=== PATIENT | female | born 1990 | race Caucasian/White ===

== ENCOUNTER 2016-08-09 08:39 | Inpatient (IN) | payer MEDICAID, OTHER ==
[2016-08-09 09:51] LABS: Hematocrit 41 % (35-47); Hemoglobin 14.1 g/dl (12.0-16.0); Mean Corpuscular HGB Conc 34 g/dl (31-36); Mean Corpuscular Hemoglobin 29 pg (27-31); Mean Corpuscular Volume 85 fL (80-97); Mean Platelet Volume 9 um3 (7.4-10.4); Red Blood Count 4.85 10^6/ul (4.0-5.4); Red Cell Distribution Width 14 % (10.5-15); White Blood Count 9.6 10^3/ul (3.5-10.8)
[2016-08-09 09:52] LABS: Urine Bacteria 2+ (Absent); Urine Bilirubin Negative (Negative); Urine Glucose Negative (Negative); Urine Nitrite Negative (Negative)
[2016-08-09 10:06] LABS: Acetaminophen < 15 mcg/mL; Alcohol < 10 mg/dL (<10); Salicylate < 2.50 mg/dL (<30)
[2016-08-09 10:12] LABS: ALT 17 U/L (7-52); AST 15 U/L (13-39); Albumin 4.7 g/dL (3.2-5.2); Alkaline Phosphatase 75 U/L (34-104); Anion Gap 7 mmol/L (2-11); BUN/Creatinine Ratio 13.8 (8-20); Blood Urea Nitrogen 12 mg/dL (6-24); CO2 Carbon Dioxide 24 mmol/L (22-32); Calcium 9.4 mg/dL (8.6-10.3); Chloride 105 mmol/L (101-111); EGFR African American 99.7 (>60); EGFR Non-African American 77.5 (>60); Globulin 3.1 g/dL (2-4); Glucose 92 mg/dL (70-100); Potassium 3.7 mmol/L (3.5-5.0); Sodium 136 mmol/L (133-145); Total Protein 7.8 g/dL (6.4-8.9)
[2016-08-09 10:16] LABS: TSH (Thyroid Stimulating Horm) 0.99 mcIU/mL (0.34-5.60)
[2016-08-09 10:47] LABS: Benzodiazepine Urine Screen Presumptive Positive (None Detect)
--- NOTE | 2016-08-09 10:47 | ED ---
Psychiatric Complaint - HPI Summary HPI Summary: Patient presents depressed with SI due to "recent events" that she will not expound upon. She suffered a self-imposed laceration to her left forearm with a razor blade today. She is weepy during out conversation and denies other physical complaints. - History Of Current Complaint Chief Complaint: [facility] Time Seen by Provider: 08/09/16 08:41 Hx Obtained From: Patient Hx Last Menstrual Period: MIRENA IUD ?: No Onset/Duration: Gradual Onset Timing: Constant Severity Initially: Severe Severity Currently: Severe Character: Depressed, Anxious Aggravating Factor(s): Recent Stress Alleviating Factor(s): Nothing Related History: Positive For: Prior Psychiatric Issues Has Suicidal: Reports: Thoughts - Allergies/Home Medications Allergies/Adverse Reactions: Allergies Allergy/AdvReac Type Severity Reaction Status Date / Time Penicillin V Allergy Severe Hives Verified 07/04/16 19:59 Latex Allergy Intermediate Rash Verified 07/04/16 19:59 Lactose Intolerance (GI) Allergy Diarrhea Verified 07/04/16 19:59 glue Allergy Rash Uncoded 07/04/16 19:59 steri strips Allergy Rash Uncoded 07/04/16 19:59 PMH/Surg Hx/FS Hx/Imm Hx Endocrine/Hematology History: Denies: Hx Anticoagulant Therapy, Hx Diabetes - borderline, Hx Thyroid Disease, Other Endocrine/Hematological Disorders Cardiovascular History: Denies: Hx Hypertension, Hx Pacemaker/ICD, Other Cardiovascular Problems/ Disorders Respiratory History: Reports: Hx Asthma Denies: Hx Chronic Obstructive Pulmonary Disease (COPD), Other Respiratory Problems/Disorders GI History: Denies: Hx Ulcer, Other GI Disorders History: Reports: Other Problems/Disorders - urinary retention and herpes Denies: Hx Renal Disease Musculoskeletal History: Denies: Other Musculoskeletal History Sensory History: Reports: Hx Contacts or Glasses Denies: Other Sensory Impairments Opthamlomology History: Reports: Hx Contacts or Glasses Denies: Other Sensory Impairments Neurological History: Reports: Hx Seizures - psuedoseizures Denies: Hx Dementia, Hx Developmental Delay, Other Neuro Impairments/ Disorders Psychiatric History: Reports: Hx Anxiety, Hx Depression, Hx Panic Disorder, Hx Post Traumatic Stress Disorder, Hx Inpatient Treatment, Hx Community Mental Health Tx, Hx Schizophrenia - Schizoaffective Disorder, Hx Bipolar Disorder, Hx Suicide Attempt, Hx of Violent Episodes Against Others - SEE VIOLENCE HX, Hx Substance Abuse, Other Psychiatric Issues/Disorders - COGNITIVELY LIMITED, BORDERLINE PERS D/O Denies: Hx Eating Disorder - Cancer History Hx Chemotherapy: No Hx Radiation Therapy: No Hx Palliative Cancer Treatment: No - Immunization History Date of Tetanus Vaccine: UTD Date of Influenza Vaccine: Unk Infectious Disease History: No Infectious Disease History: 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 - Social History Occupation: Disabled Lives: Alone Alcohol Use: None Alcohol Amount: "drank beer awhile ago" Hx Substance Use: No Substance Use Type: Reports: None Substance Use Comment - Amount & Last Used: Xanax and Ambien Hx Tobacco Use: Yes Smoking Status (MU): Light Every Day Tobacco Smoker Type: Cigarettes Amount Used/How Often: 1/2 PPD Length of Time of Smoking/Using Tobacco: 3 years Have You Smoked in the Last Year: Yes Cessation Counseling: Patient Advised to Stop Review of Systems Positive: Anxious, Depressed All Other Systems Reviewed And Are Negative: Yes Physical Exam Triage Information Reviewed: Yes Vital Signs On Initial Exam: Initial Vitals Temp Pulse Resp BP Pulse Ox 98.2 F 76 16 120/70 98 08/09/16 09:26 08/09/16 09:26 08/09/16 09:26 08/09/16 09:26 08/09/16 09:26 Vital Signs Reviewed: Yes Appearance: Positive: Well-Appearing, Pain Distress, Obese Skin: Positive: Warm, Skin Color Reflects Adequate Perfusion, Dry, Tender - 4cm laceration to left underside of forearm, Soft Head/Face: Positive: Normal Head/Face Inspection Eyes: Positive: EOMI, OKSANA, Conjunctiva Clear ENT: Positive: Hearing grossly normal Respiratory/Lung Sounds: Positive: Breath Sounds Present Cardiovascular: Positive: RRR Musculoskeletal: Positive: Strength/ROM Intact, Pain @ - TTP left forearm Neurological: Positive: Sensory/Motor Intact, Alert, Oriented to Person Place, Time, NV Bundle Intact Distally, Normal Gait Psychiatric: Positive: Anxious, Depressed AVPU Assessment: Alert Procedures - Laceration/Wound Repair 1 Location: upper extremity - left forearm Description: Linear Length, Depth and Shape: 4 cm long, 5mm wide, 2mm deep- patient refused numbing medication Betadine Prep?: No Irrigated w/ Saline (ccs): 100 Laceration/Wound Explored: clean Closure: Shazia #__ - 7 Layer Closure?: No Sterile Dressing Applied?: No Diagnostics - Vital Signs Vital Signs Temp Pulse Resp BP Pulse Ox 08/09/16 09:26 98.2 F 76 16 120/70 98 - Laboratory Lab Results: Lab Results 08/09/16 08/09/16 08/09/16 Range/Units 09:20 09:35 09:35 WBC 9.6 (3.5-10.8) 10^3/ul RBC 4.85 (4.0-5.4) 10^6/ul Hgb 14.1 (12.0-16.0) g/dl Hct 41 (35-47) % MCV 85 (80-97) fL MCH 29 (27-31) pg MCHC 34 (31-36) g/dl RDW 14 (10.5-15) % Plt Count 307 (150-450) 10^3/ul MPV 9 (7.4-10.4) um3 Neut % (Auto) 74.9 (38-83) % Lymph % (Auto) 19.6 L (25-47) % Shelby % (Auto) 4.7 (1-9) % Eos % (Auto) 0.4 (0-6) % Baso % (Auto) 0.4 (0-2) % Absolute Neuts (auto) 7.1 (1.5-7.7) 10^3/ul Absolute Lymphs (auto) 1.9 (1.0-4.8) 10^3/ul Absolute Monos (auto) 0.5 (0-0.8) 10^3/ul Absolute Eos (auto) 0 (0-0.6) 10^3/ul Absolute Basos (auto) 0 (0-0.2) 10^3/ul Absolute Nucleated RBC 0 10^3/ul Nucleated RBC % 0 Sodium 136 (133-145) mmol/L Potassium 3.7 (3.5-5.0) mmol/L Chloride 105 (101-111) mmol/L Carbon Dioxide 24 (22-32) mmol/L Anion Gap 7 (2-11) mmol/L BUN 12 (6-24) mg/dL Creatinine 0.87 (0.51-0.95) mg/dL Est GFR ( Amer) 99.7 (>60) Est GFR (Non-Af Amer) 77.5 (>60) BUN/Creatinine Ratio 13.8 (8-20) Glucose 92 (70-100) mg/dL Calcium 9.4 (8.6-10.3) mg/dL Total Bilirubin 0.70 (0.2-1.0) mg/dL AST 15 (13-39) U/L ALT 17 (7-52) U/L Alkaline Phosphatase 75 (34-104) U/L Total Protein 7.8 (6.4-8.9) g/dL Albumin 4.7 (3.2-5.2) g/dL Globulin 3.1 (2-4) g/dL Albumin/Globulin Ratio 1.5 (1-3) TSH 0.99 (0.34-5.60) mcIU/mL Beta HCG, Quant < 0.60 mIU/mL Urine Color Maya Urine Appearance Cloudy Urine pH 5.0 (5-9) Ur Specific [place] 1.025 (1.010-1.030) Urine Protein 1+(30 mg/dl) H (Negative) Urine Ketones Trace H (Negative) Urine Blood 2+ H (Negative) Urine Nitrate Negative (Negative) Urine Bilirubin Negative (Negative) Urine Urobilinogen Negative (Negative) Ur Leukocyte Esterase 3+ H (Negative) Urine WBC (Auto) 3+(>20/hpf) H (Absent) Urine RBC (Auto) 2+(6-10/hpf) H (Absent) Ur Squamous Epith Cells Present H (Absent) Urine Bacteria 2+ H (Absent) Urine Glucose Negative (Negative) Salicylates < 2.50 (<30) mg/dL Acetaminophen < 15 mcg/mL Serum Alcohol < 10 (<10) mg/dL Result Diagrams: 08/09/16 09:35 08/09/16 09:35 Lab Statement: Any lab studies that have been ordered have been reviewed, and results considered in the medical decision making process. Course/Dx - Differential Dx/Clinical Impression Differential Diagnosis/HQI/PQRI: Positive: Acute Psychosis, Anxiety, Bipolar Disorder, Depression, Schizophrenia, Suicidal Ideation Provider Diagnosis: Persistent mood [affective] disorder, unspecified - Physician Notifications Instructed by Provider To: Admit As Inpatient Patient Is Medically Stable For: Psych Evaluation Discharge - Discharge Plan Condition: Stable Disposition: ADMITTED TO [facility]
[2016-08-09] MEDS ORDERED: LORazepam TAB(*) 1 MG PO ONE (10:52)
[2016-08-09] MEDS ORDERED: Ibuprofen TAB* 400 MG PO ONE (13:13)
[2016-08-09] MEDS ORDERED: Al Hydrox/Mg Hydrox/Simet LIQ* 30 ML UDC PO PRN (16:38)
[2016-08-09] MEDS ORDERED: Nicotine GUM* 2 MG PO PRN (16:56)
[2016-08-09] MEDS ORDERED: Mouth Piece, Nicotine* 1 EACH CARTRIDGE ONE (16:56)
[2016-08-09] MEDS: Nicotine Inhaler* 10 MG AMP INH PRN (16:57)
[2016-08-09] MEDS: Acetaminophen TAB* 325 MG PO PRN (16:57)
[2016-08-09] MEDS: Naproxen TAB* 250 MG PO PRN (19:40)
[2016-08-09] MEDS: hydrOXYzine HCL TAB* 50 MG PO PRN (19:40)
[2016-08-09] MEDS ORDERED: chlorproMAZINE TAB* 50 MG PO SCH (21:00)
[2016-08-09] MEDS: NICOTINE GUM 2 MG PO PRN (21:36)
[2016-08-10] MEDS: Acetaminophen TAB* 325 MG PO PRN (03:06)
[2016-08-10] MEDS: NICOTINE GUM 2 MG PO PRN ×8 (03:06→23:16)
[2016-08-10] MEDS: hydrOXYzine HCL TAB* 50 MG PO PRN (04:46)
[2016-08-10] MEDS: Tamsulosin CAP* 0.4 MG PO SCH (08:15)
[2016-08-10] MEDS: Vitamin THERAPEUTIC TAB PO SCH (09:27)
[2016-08-10] MEDS ORDERED: chlorproMAZINE TAB* 50 MG PO SCH (11:00)
--- NOTE | 2016-08-10 13:59 | HP ---
ADMISSION HISTORY AND PHYSICAL: DATE OF ADMISSION: 08/09/16 DATE OF EVALUATION: 08/10/16 IDENTIFICATION: Ms. Pérez is well-known to the unit from multiple admissions here. She is admitted on this occasion with suicide attempt by cutting her left volar forearm, also inscribing "I hate myself" with a knife on her arm and reporting increased depressive symptoms due to 2 stressors: her mother evicting her from their home and her girlfriend [place] and not planning for her to come with her. HISTORY OF PRESENT ILLNESS: Information was gathered from interview of the patient and review of the electronic medical record. Marly tells me that her mood has been up and down, and currently, it is just there. She reports continuing to have suicidal ideation, "It is in my head. I can't get it out of my head." She reports also command auditory hallucinations both to hurt herself and of disparaging remarks that no one likes her and that people would be better off if she were . She denies any thoughts to harm others. She denies any visual hallucinations, but does report that at her last hospitalization, she saw a woman dressed in black walking by her room who turned out not be there. She reports that she has been sleeping poorly, generally sleeps better with melatonin. She reports that her appetite has been down and she is not enjoying the things that she used to like to do, that she is feeling depressed, that she is feeling guilty and worthless, that she has no energy. She does not endorse any difficulty with concentration or decision making, but reports that she has a difficult time making good decisions. Surprisingly, she tells me on this occasion that she has had very little exposure to DBT skills or other treatments specifically for her longstanding and well established diagnosis of borderline personality disorder. She does give report of 3 to 4 day episodes of irritability, walking around the house, considering what to do first and what second in order to harm herself. These symptoms, however, do seem much more in line with her diagnosis of borderline personality disorder and would not seem to indicate a history of true elizabeth. She denies any use of alcohol or drugs prior to this admission. She voices understanding of the need to comply with the behavioral modification plan put in place because of past episodes of countertherapeutic, out of control behavior on the unit. PAST PSYCHIATRIC HISTORY: She has had many psychiatric hospitalizations including at the [facility]. She has severe and chronic history of self- injurious behaviors. She has periodically attempted suicide. She has had numerous medication trials with nothing successful against her mood lability and impulsivity. She has failed antipsychotic trials for mood stabilization, reduction of impulsivity, and atypical psychotic features. She has been in outpatient care at [facility], although she reports that she has lapsed from care since her last discharge from this unit. She has also been in the care of ACT teams. She has had various diagnoses including intellectual disability, borderline personality disorder, substance related disorder, dissociative disorder, psychotic disorder, and posttraumatic stress disorder. Report of psychotic experience seems in line with dissociation related to complex PTSD/borderline personality disorder much more so than chronic psychotic disorder. Medication trials have included trazodone, Seroquel , Thorazine, Remeron, Neurontin, Campral, clonidine, lithium, Depakote, Celexa, naltrexone, and Topamax. She has had poor adherence with medications and in the past has needed court ordered treatment in the outpatient setting. She has had behavioral problems with negative therapeutic reactions on the psychiatric unit in the past. She will often worsen on the unit due to an inability to make a stable clinical alliance and a tendency to self sabotage. She will act out over minor upsets with severely disruptive behaviors. PAST MEDICAL HISTORY: 1. Obesity. 2. Seizure disorder. 3. Urinary retention. 4. Herpes zoster. OUTPATIENT MEDICATION REGIMEN: The patient reports that she has lapsed from all medications. She had been on: 1. Atarax 50 mg every 4 hours as needed for anxiety. 2. Thorazine 50 mg at bedtime. 3. Flomax 0.4 mg every morning. 4. Naprosyn 500 mg every 12 hours as needed. 5. Naltrexone 50 mg daily. 6. Latuda 40 mg twice daily. 7. Abilify Maintena 400 mg IM every 28 days. DRUG ALLERGIES: PENICILLIN V. FAMILY PSYCHIATRIC HISTORY: She has half siblings with learning and conduct disorders. SUBSTANCE USE HISTORY: As reported, marijuana use and the use of cocaine in the past. Also alcohol cravings and treatment with Campral in the past. SOCIAL HISTORY: She was adopted and raised with half and adopted siblings. She did not graduate high school due to frequent hospitalizations for psychiatric reasons. She has been in a frequently chaotic long-term relationship with girlfriend, Wendi, which now apparently is ending as Wendi is planning to move away [place] the [place]. Marly identifies as a lesbian. She has been living with her mother, but her mother reportedly has kicked her out of the house. She has in the past lived in supportive mental health housing. MENTAL STATUS EXAMINATION: Marly is more down on this occasion than I have seen her previously. She makes only furtive eye contact. Her speech is low volume, but with regular rate and rhythm. She is alert and oriented to person, place, time, and situation. She has a linear, if somewhat slowed, and goal directed thought process. She reports her mood as "just there." Her affect is down, in congruence with her report of feeling depressed overall. She reports ongoing command auditory hallucinations with disparaging remarks about the world being better off without her and commands to harm herself. She denies any visual hallucinations. She denies any thoughts to harm others. She denies any paranoid thoughts. Her insight and judgment are chronically impaired. She has a history of very poor impulse control, but so far on the unit has been in behavioral control. PHYSICAL ASSESSMENT: She did have sabra placed on the deep cuts that she made on her volar left forearm. She had a physical examination done in the emergency department reported as within normal limits across organ systems with the exception of the following abnormalities noted: that she has a 4-cm laceration to the left underside of the forearm and appears anxious and depressed. She declines a repeat physical examination. Vital signs recorded in the emergency department at 9:26 a.m. on 08/09/16 showed a temp of 98.2, pulse 76, respiratory rate 16, blood pressure 120/70 with 98% saturation by pulse ox. LABORATORY DATA: Laboratory values were entirely normal on the CBC with differential aside from a slightly low lymphocyte percentage of 19.6, entirely normal comprehensive metabolic panel, and negative test. TSH 0.99. Urinalysis had squamous cells present, 2+ bacteria, 2+ red's, 3+ white's, 3+ leukocyte esterase, 2+ blood, trace ketones, 1+ urinary protein. Toxicology screen positive for benzodiazepines, otherwise, entirely negative. ASSESSMENT AND PLAN: Ms. Pérez is a 26-year-old woman with a history of severe borderline personality disorder. She has been readmitted to the unit with report of suicidal ideation, still ongoing with commands and auditory hallucinations to harm herself. She states it is her goal for this admission to transfer to the [facility] for longer term care, unless her mother would relent and allow her to return to her home. She reports that she is despondent over the planned departure of her girlfriend, Wendi. This has been reported on each admission as a tumultuous and unstable relationship. She does surprisingly report to me today never having had any sort of coherent treatment for borderline personality disorder. I suppose that it is possible that because of the extremely chaotic presentation that she has had on this unit and in other treatment facilities, that she has not learned DBT skills, but it seems unlikely. She will be encouraged to make productive use of the therapeutic milieu within the constraints of the behavioral modification plan that it is in place to forestall the negative therapeutic reactions that have routinely occurred during her hospitalizations. Early on, she is showing some indications that she might be able to successfully comply with the behavioral modification plan to graduate into privileges to allow productive use of groups without the typical disruptiveness that has made that impossible during past admissions. We will be looking towards placement to the [facility]. We will be restarting for now the Prolixin that in the past she reports has been of some help in mitigating command auditory hallucinations that she is now experiencing. We will also be gathering collateral from [facility], from which she reports she has lapsed care and, in fact, states that she was discharged from that program. She is on 15 minute checks. She is full code status. She has been admitted on a 9 status. DIAGNOSES: 1. Borderline personality disorder. 2. Borderline intellectual functioning. 3. Posttraumatic stress disorder/dissociative disorder. 4. Adjustment disorder. 5. Depressive disorder. [id number]/[facility] #: [id number] NEIL
[2016-08-10] MEDS: fluPHENAZine HCL TAB* 5 MG PO SCH (14:35)
--- NOTE | 2016-08-10 18:24 | CONSULT ---
Consult Consult: Brief focused consult note: Asked to see Ms. Pérez for complaint of redness around her belly button and pain at the site of her left arm wound where sabra were placed after she cut her arm on Sunday08/09/16. 1. On exam her left arm wound is healing well and there is no erythema or edema to suggest infection. I believe that the area is simply somewhat painful as would be expected. Recommend to continue acetaminophen and ibuprofen with daily dressing changes. Sabra should be removed in 10 days. 3. On further exam, her belly button is excoriated. Patient states she believes that there are (1) bugs in there, (2) a worm in there, or (3) perhaps it hurts because she is not peeing. No foreign objects noted in the belly button. I suspect that she has been scratching at the area causing excoriation. Recommend local bacitran and to encourage patient to leave the area alone as much as possible. No evidence of infection. Hospital Medicine will be available as needed during Ms. Pérez stay on the [facility] for any further questions or concerns.
[2016-08-10] MEDS: chlorproMAZINE TAB* 25 MG PO SCH (21:51)
[2016-08-10] MEDS: Naproxen TAB* 250 MG PO PRN (22:56)
[2016-08-11] MEDS: Tamsulosin CAP* 0.4 MG PO SCH (08:19)
[2016-08-11] MEDS: NICOTINE GUM 2 MG PO PRN ×6 (08:19→23:23)
[2016-08-11] MEDS: fluPHENAZine HCL TAB* 5 MG PO SCH (08:19)
[2016-08-11] MEDS: Vitamin THERAPEUTIC TAB PO SCH (08:20)
--- NOTE | 2016-08-11 11:15 | PN ---
Subjective - Subjective Service Type: 22523 Hosp care 15 min low complexity Subjective: Marly reports ongoing AH, but denies SI/SIB, HI, PI, VH. She was seen by medicine for her complaints of pain at the site of her deep cut on L volar forearm, and exoriation of umbilicus. She has no physical complaints today. She signed and is complying with her behavioral modification plan. Objective - Appearance Appearance: Obese Dysmorphic Features: No Hygiene: Normal Grooming: Disheveled - Behavior Psychomotor Activities: Normal Exhibits Abnormal Movement: No - Attitude and Relatedness Attitude and Relatedness: Minimally Cooperative Eye Contact: Fair - Speech Quality: Unpressured Latencies: Normal Quantity: Appropriate - Mood Patient's Decription of Mood: "I don't know" - Affect Observed Affect: Tense Affect Consistent with: Dysphoria - Thought Process Patient's Thought Process: Impoverished Thought Content: No Passive Wish, No Suicidal Planning, No Homicidal Ideation, No Paranoid Ideation - Sensorium Experiencing Hallucinations: Yes Type of Hallucinations: Visual: No, Auditory: Yes, Command: No - Level of Consciousness Level of Consciousness: Agitated - mildly Orientation: Yes Intact, Yes Orientated to Time, Yes Orientated to Place, Yes Orientated to Person - Impulse Control Impulse Control: Tenuous - chronically - Insight and Judgement Insight and Judgement: Poor - chronically - Group Participation Particating in Group Activities: No - Medication Management Medication Management Adherence: Yes Assessment - Assessment Merits Inpatient Hospitalization: For Stabilization, For Discharge Planning, Pending Safe DC Plan Inpatient DSM-IV Dx: 1. Borderline personality disorder. 2. Borderline intellectual functioning. 3. Posttraumatic stress disorder/dissociative disorder. 4. Adjustment disorder. 5. Depressive disorder. Clinical Impression: ON admission 16: Ms. Pérez is a 26-year-old woman with a history of severe borderline personality disorder. She has been readmitted to the unit with report of suicidal ideation, still ongoing with commands and auditory hallucinations to harm herself. She states it is her goal for this admission to transfer to the [facility] for longer term care, unless her mother would relent and allow her to return to her home. She reports that she is despondent over the planned departure of her girlfriend, Wendi. This has been reported on each admission as a tumultuous and unstable relationship. She does surprisingly report to me today never having had any sort of coherent treatment for borderline personality disorder. I suppose that it is possible that because of the extremely chaotic presentation that she has had on this unit and in other treatment facilities, that she has not learned DBT skills, but it seems unlikely. She will be encouraged to make productive use of the therapeutic milieu within the constraints of the behavioral modification plan that it is in place to forestall the negative therapeutic reactions that have routinely occurred during her hospitalizations. Early on, she is showing some indications that she might be able to successfully comply with the behavioral modification plan to graduate into privileges to allow productive use of groups without the typical disruptiveness that has made that impossible during past admissions. We will be looking towards placement to the [facility]. We will be restarting for now the Prolixin that in the past she reports has been of some help in mitigating command auditory hallucinations that she is now experiencing. We will also be gathering collateral from [facility], from which she reports she has lapsed care and, in fact, states that she was discharged from that program. She is on 15 minute checks. She is full code status. She has been admitted on a 9.39 status. 08.11.16 Ms Pérez today reports uncertainty as to her mood, but denies any dangerous intent or plan, and only hearing voices, thought not telling her to hurt herself , only contradicting her thoughts. She has no physical complaints and remains in tentative behavioral control. Given recent exacerbation of illness, plan is to refer to [facility] for mcc care and stabilization. Awaiting return call from [facility] for collateral to guide care. Just received call from nursing as typing this report that she is now having CAH to SIB. Will add Zyprexa ODT 5 mg q4H prn against that. Plan - Plan Treatment Plan: Name: MARLY PÉREZ Birthdate: 1990 [id number] Continue current meds and plan with behavioral modification plan against countertherapeutic behaviors. Gather collateral. Monitor MS and safety. Arrange disposition per collateral and hospital course, with consideration of intermediate school teacher care via transfer to [facility], which is what Ms Pérez has requested. Medications: Current Medications Acetaminophen (Tylenol Tab*) 650 mg PO Q6H PRN PRN Reason: for pain; or Temp >101 F Last Admin: 08/10/16 03:06 Dose: 650 mg Al Hydrox/Mg Hydrox/Simethicone (Maalox Plus*) 30 ml PO Q4H PRN PRN Reason: INDIGESTION Chlorpromazine HCl (Thorazine Tab*) 25 mg PO BEDTIME [facility] Last Admin: 08/10/16 21:51 Dose: Not Given Fluphenazine HCl (Prolixin Tab*) 5 mg PO DAILY [facility] Last Admin: 08/11/16 08:19 Dose: 5 mg Hydroxyzine HCl (Atarax Tab*) 50 mg PO Q4H PRN PRN Reason: AGITATION/ANXIETY Last Admin: 08/10/16 04:46 Dose: 50 mg Multivitamins (Theragran Tab*) 1 tab PO DAILY [facility] Last Admin: 08/11/16 08:20 Dose: Not Given Naproxen (Naprosyn Tab*) 500 mg PO Q12H PRN PRN Reason: PAIN Last Admin: 08/10/16 22:56 Dose: 500 mg Nicotine (Nicotine Inhaler*) 10 mg INH Q2H PRN PRN Reason: CRAVING Last Admin: 08/09/16 16:57 Dose: 10 mg Nicotine Polacrilex (Nicotine Gum*) 2 mg PO Q2H PRN PRN Reason: CRAVING Last Admin: 08/11/16 10:49 Dose: 2 mg Tamsulosin HCl (Flomax Cap*) 0.4 mg PO 0900 [facility] Last Admin: 08/11/16 08:19 Dose: 0.4 mg - Discharge Plan Discharge Plan: Consider Longer Term Tx
[2016-08-11] MEDS ORDERED: OLANzapine TAB*ODT* 5 MG ONE (11:32)
[2016-08-11] MEDS: OLANzapine TAB*ODT* 5 MG PO PRN ×2 (11:33→23:19)
[2016-08-11] MEDS: Acetaminophen TAB* 325 MG PO PRN (15:27)
[2016-08-11] MEDS ORDERED: Mouth Piece, Nicotine* 1 EACH CARTRIDGE ONE (15:30)
[2016-08-11] MEDS: Nicotine Inhaler* 10 MG AMP INH PRN ×2 (15:31→23:20)
[2016-08-11] MEDS: Naproxen TAB* 250 MG PO PRN (16:49)
[2016-08-11] MEDS: chlorproMAZINE TAB* 25 MG PO SCH (20:09)
[2016-08-12] MEDS: NICOTINE GUM 2 MG PO PRN ×6 (07:28→18:23)
[2016-08-12] MEDS: OLANzapine TAB*ODT* 5 MG PO PRN ×3 (07:38→17:39)
[2016-08-12] MEDS: fluPHENAZine HCL TAB* 5 MG PO SCH (07:38)
[2016-08-12] MEDS: Tamsulosin CAP* 0.4 MG PO SCH (07:38)
[2016-08-12] MEDS: Vitamin THERAPEUTIC TAB PO SCH (08:53)
--- NOTE | 2016-08-12 13:04 | PN ---
Subjective - Subjective Service Type: 89755 Hosp care 15 min low complexity Subjective: Patient has not had any notable behavioral disturbances on the unit so far this weekend. She remains calm and cooperative but indicates that she would likely kill herself if discharged back into the community. Objective - Appearance Appearance: Well Developed/Nourished Dysmorphic Features: No Hygiene: Normal Grooming: Well Kept - Behavior Psychomotor Activities: Normal Exhibits Abnormal Movement: No - Attitude and Relatedness Attitude and Relatedness: Cooperative Eye Contact: Fair - Speech Quality: Unpressured Latencies: Normal Quantity: Appropriate - Mood Patient's Decription of Mood: "Anxious" - Affect Observed Affect: Fair Affect Consistent with: Dysphoria - Thought Process Patient's Thought Process: Coherent Thought Content: Yes Passive Wish, No Suicidal Planning, No Homicidal Ideation, No Paranoid Ideation - Sensorium Experiencing Hallucinations: Yes Type of Hallucinations: Visual: No, Auditory: Yes, Command: Yes - to kill herself - Level of Consciousness Level of Consciousness: Alert Orientation: Yes Intact, Yes Orientated to Time, Yes Orientated to Place, Yes Orientated to Person - Impulse Control Impulse Control: Tenuous - Insight and Judgement Insight and Judgement: Poor - Group Participation Particating in Group Activities: Yes - Medication Management Medication Management Adherence: Yes Assessment - Assessment Merits Inpatient Hospitalization: For Immediate Safety, For Stabilization Inpatient DSM-IV Dx: 1. Borderline personality disorder. 2. Borderline intellectual functioning. 3. Posttraumatic stress disorder/dissociative disorder. 4. Adjustment disorder. 5. Depressive disorder. Clinical Impression: 26 y.o. single white, homosexual female with a history of early life trauma, PTSD and borderline PD admitted with active SI after cutting herself deeply on the arm. Plan - Plan Treatment Plan: Name: FILOMENA WILKINSON Birthdate: 1990 [id number] Patient awaits transfer to a State facility. No acute issues. Continued Medication Management: Continue Outpt Medication Medications: Current Medications Acetaminophen (Tylenol Tab*) 650 mg PO Q6H PRN PRN Reason: for pain; or Temp >101 F Last Admin: 08/11/16 15:27 Dose: 650 mg Al Hydrox/Mg Hydrox/Simethicone (Maalox Plus*) 30 ml PO Q4H PRN PRN Reason: INDIGESTION Chlorpromazine HCl (Thorazine Tab*) 25 mg PO BEDTIME [facility] Last Admin: 08/11/16 20:09 Dose: 25 mg Fluphenazine HCl (Prolixin Tab*) 5 mg PO DAILY [facility] Last Admin: 08/12/16 07:38 Dose: 5 mg Hydroxyzine HCl (Atarax Tab*) 50 mg PO Q4H PRN PRN Reason: AGITATION/ANXIETY Last Admin: 08/10/16 04:46 Dose: 50 mg Multivitamins (Theragran Tab*) 1 tab PO DAILY [facility] Last Admin: 08/12/16 08:53 Dose: Not Given Naproxen (Naprosyn Tab*) 500 mg PO Q12H PRN PRN Reason: PAIN Last Admin: 08/11/16 16:49 Dose: 500 mg Nicotine (Nicotine Inhaler*) 10 mg INH Q2H PRN PRN Reason: CRAVING Last Admin: 08/11/16 15:31 Dose: 10 mg Nicotine Polacrilex (Nicotine Gum*) 2 mg PO Q2H PRN PRN Reason: CRAVING Last Admin: 08/12/16 12:41 Dose: 2 mg Olanzapine (Zyprexa * Tab Odt) 5 mg PO Q4H PRN PRN Reason: AGITATION Last Admin: 08/12/16 07:38 Dose: 5 mg Tamsulosin HCl (Flomax Cap*) 0.4 mg PO 0900 [facility] Last Admin: 08/12/16 07:38 Dose: 0.4 mg - Discharge Plan Discharge Plan: Consider Longer Term Tx
[2016-08-12] MEDS: hydrOXYzine HCL TAB* 50 MG PO PRN ×2 (14:11→18:23)
[2016-08-12] MEDS: Nicotine Inhaler* 10 MG AMP INH PRN (16:22)
[2016-08-12] MEDS: Naproxen TAB* 250 MG PO PRN (17:40)
[2016-08-12] MEDS: chlorproMAZINE TAB* 25 MG PO SCH (21:30)
[2016-08-13] MEDS: hydrOXYzine HCL TAB* 50 MG PO PRN ×2 (03:52→16:45)
[2016-08-13] MEDS: OLANzapine TAB*ODT* 5 MG PO PRN ×3 (03:52→15:40)
[2016-08-13] MEDS: NICOTINE GUM 2 MG PO PRN ×5 (04:06→18:53)
[2016-08-13] MEDS: Tamsulosin CAP* 0.4 MG PO SCH (11:20)
[2016-08-13] MEDS: fluPHENAZine HCL TAB* 5 MG PO SCH (11:20)
[2016-08-13] MEDS: Vitamin THERAPEUTIC TAB PO SCH (11:21)
[2016-08-13] MEDS: Nicotine Inhaler* 10 MG AMP INH PRN (18:53)
[2016-08-13] MEDS: chlorproMAZINE TAB* 25 MG PO SCH (21:24)
[2016-08-14] MEDS: OLANzapine TAB*ODT* 5 MG PO PRN ×4 (03:45→23:20)
[2016-08-14] MEDS: hydrOXYzine HCL TAB* 50 MG PO PRN ×4 (03:45→23:20)
[2016-08-14] MEDS: NICOTINE GUM 2 MG PO PRN ×9 (03:45→23:21)
[2016-08-14] MEDS: fluPHENAZine HCL TAB* 5 MG PO SCH (08:29)
[2016-08-14] MEDS: Tamsulosin CAP* 0.4 MG PO SCH (08:29)
[2016-08-14] MEDS: Naproxen TAB* 250 MG PO PRN (09:48)
[2016-08-14] MEDS: Vitamin THERAPEUTIC TAB PO SCH (10:23)
--- NOTE | 2016-08-14 14:30 | PN ---
Subjective - Subjective Service Type: [id number] Hosp care 15 min low complexity Subjective: Marly continues to verbalize suicidal thoughts without any active plans and does intend to go to [facility] if transfered. Says her mood has been up and down although she has maintained good behavioral control on the unit. Objective - Appearance Appearance: Obese Hygiene: Normal Grooming: Fairly Well Kept - Behavior Psychomotor Activities: Normal Exhibits Abnormal Movement: No - Attitude and Relatedness Attitude and Relatedness: Needy Eye Contact: Fair - Speech Quality: Unpressured Latencies: Normal Quantity: Appropriate - Mood Patient's Decription of Mood: "Terrible" - Affect Observed Affect: Depressed Affect Consistent with: Dysphoria - Thought Process Patient's Thought Process: Coherent, Goal Directed Thought Content: Yes Passive Wish, No Suicidal Planning, No Homicidal Ideation, No Paranoid Ideation - Sensorium Experiencing Hallucinations: No, Sensorium is Clear Type of Hallucinations: Visual: No, Auditory: No, Command: No - Level of Consciousness Level of Consciousness: Alert Orientation: Yes Intact, Yes Orientated to Time, Yes Orientated to Place, Yes Orientated to Person - Impulse Control Impulse Control: Tenuous - Insight and Judgement Insight and Judgement: Poor - Group Participation Particating in Group Activities: No - Medication Management Medication Management Adherence: Yes Assessment - Assessment Merits Inpatient Hospitalization: For Stabilization, Pending Safe DC Plan Inpatient DSM-IV Dx: 1. Borderline personality disorder. 2. Borderline intellectual functioning. 3. Posttraumatic stress disorder/dissociative disorder. 4. Adjustment disorder. 5. Depressive disorder. Clinical Impression: 26 y/o WF with extensive h/o mood disregulation and Borderline PD continues to express suicidal thoughts and very unpredictable behavior and unsafe to be discharged at least at this time. Not a candidate for retirement inpatient care due to BPD. Plan - Plan Treatment Plan: Name: MARLY WILKINSON Birthdate: 1990 [id number] Continued Medication Management: Continue Outpt Medication Medications: Current Medications Acetaminophen (Tylenol Tab*) 650 mg PO Q6H PRN PRN Reason: for pain; or Temp >101 F Last Admin: 08/11/16 15:27 Dose: 650 mg Al Hydrox/Mg Hydrox/Simethicone (Maalox Plus*) 30 ml PO Q4H PRN PRN Reason: INDIGESTION Benztropine Mesylate (Cogentin Tab*) 1 mg PO BID [facility] Chlorpromazine HCl (Thorazine Tab*) 25 mg PO BEDTIME [facility] Last Admin: 08/13/16 21:24 Dose: Not Given Fluphenazine HCl (Prolixin Tab*) 5 mg PO DAILY [facility] Last Admin: 08/14/16 08:29 Dose: 5 mg Hydroxyzine HCl (Atarax Tab*) 50 mg PO Q4H PRN PRN Reason: AGITATION/ANXIETY Last Admin: 08/14/16 09:48 Dose: 50 mg Multivitamins (Theragran Tab*) 1 tab PO DAILY [facility] Last Admin: 08/14/16 10:23 Dose: Not Given Naproxen (Naprosyn Tab*) 500 mg PO Q12H PRN PRN Reason: PAIN Last Admin: 08/14/16 09:48 Dose: 500 mg Nicotine (Nicotine Inhaler*) 10 mg INH Q2H PRN PRN Reason: CRAVING Last Admin: 08/13/16 18:53 Dose: 10 mg Nicotine Polacrilex (Nicotine Gum*) 2 mg PO Q2H PRN PRN Reason: CRAVING Last Admin: 08/14/16 12:24 Dose: 2 mg Olanzapine (Zyprexa * Tab Odt) 5 mg PO Q4H PRN PRN Reason: AGITATION Last Admin: 08/14/16 12:24 Dose: 5 mg Tamsulosin HCl (Flomax Cap*) 0.4 mg PO 0900 [facility] Last Admin: 08/14/16 08:29 Dose: 0.4 mg - Discharge Plan Discharge Plan: Outpatient Follow Up Outpatient Program: [facility]
[2016-08-14] MEDS: Nicotine Inhaler* 10 MG AMP INH PRN (17:33)
[2016-08-14] MEDS: chlorproMAZINE TAB* 25 MG PO SCH (20:04)
[2016-08-14] MEDS: Benztropine TAB* 1 MG PO SCH (20:05)
[2016-08-14] MEDS ORDERED: Mouth Piece, Nicotine* 1 EACH CARTRIDGE ONE (23:57)
[2016-08-15] MEDS: OLANzapine TAB*ODT* 5 MG PO PRN (07:05)
[2016-08-15] MEDS: NICOTINE GUM 2 MG PO PRN ×5 (07:05→16:23)
[2016-08-15] MEDS: hydrOXYzine HCL TAB* 50 MG PO PRN (07:32)
[2016-08-15] MEDS: Benztropine TAB* 1 MG PO SCH ×2 (09:39→20:50)
[2016-08-15] MEDS: Tamsulosin CAP* 0.4 MG PO SCH (09:39)
[2016-08-15] MEDS: fluPHENAZine HCL TAB* 5 MG PO SCH (09:39)
[2016-08-15] MEDS: Nicotine Inhaler* 10 MG AMP INH PRN ×3 (09:40→16:23)
[2016-08-15] MEDS: Vitamin THERAPEUTIC TAB PO SCH (09:42)
--- NOTE | 2016-08-15 14:00 | PN ---
Subjective - Subjective Service Type: 39466 Hosp care 15 min low complexity Subjective: Filomena reported this morning that in a conversation earlier this morning her mother had told her it would be ok for her to come home to her. She has been turned down by [facility] and [facility] despite Ms Ni's strong advocacy for this placement option given her current loss of primary support of girlfriend Wendi. Hope, her therapist at [facility], reports that her supportive employment case manager had been seeking placement into an out of state inpatient DBT-based treatment program that her insurer had approved, but Hope did not know where that placement option stood when she called me this afternoon. Hope also reported that she had been discusing with a kit planner last week the possibility of placement into a [facility] program. Filomena herself says she would like to go home if we cannot arrange for other placements for her. She denies any dangerous intent or plan or psychotic experience. Objective - Appearance Appearance: Obese Dysmorphic Features: Yes Hygiene: Normal Grooming: Fairly Well Kept - Behavior Psychomotor Activities: Normal Exhibits Abnormal Movement: No - Attitude and Relatedness Attitude and Relatedness: Cooperative Eye Contact: Good - Speech Quality: Unpressured Latencies: Normal Quantity: Appropriate - Mood Patient's Decription of Mood: "Okay" - Affect Observed Affect: Fair Affect Consistent with: Dysphoria - but milder than usual chronic baseline - Thought Process Patient's Thought Process: Coherent, Goal Directed Thought Content: No Passive Wish, No Suicidal Planning, No Homicidal Ideation, No Paranoid Ideation - Sensorium Experiencing Hallucinations: No, Sensorium is Clear Type of Hallucinations: Visual: No, Auditory: No, Command: No - Level of Consciousness Level of Consciousness: Alert Orientation: Yes Intact, Yes Orientated to Time, Yes Orientated to Place, Yes Orientated to Person - Impulse Control Impulse Control: Tenuous - chronically - Insight and Judgement Insight and Judgement: Poor - chronically - Group Participation Particating in Group Activities: Yes Group Participation Comments: DBT group - Medication Management Medication Management Adherence: Yes Assessment - Assessment Merits Inpatient Hospitalization: For Stabilization, Consolidate Improvements, For Discharge Planning, Pending Safe DC Plan Inpatient DSM-IV Dx: 1. Borderline personality disorder. 2. Borderline intellectual functioning. 3. Posttraumatic stress disorder/dissociative disorder. 4. Adjustment disorder. 5. Depressive disorder. Clinical Impression: ON admission 16: Ms. Pérez is a 26-year-old woman with a history of severe borderline personality disorder. She has been readmitted to the unit with report of suicidal ideation, still ongoing with commands and auditory hallucinations to harm herself. She states it is her goal for this admission to transfer to the [facility] for longer term care, unless her mother would relent and allow her to return to her home. She reports that she is despondent over the planned departure of her girlfriend, Wendi. This has been reported on each admission as a tumultuous and unstable relationship. She does surprisingly report to me today never having had any sort of coherent treatment for borderline personality disorder. I suppose that it is possible that because of the extremely chaotic presentation that she has had on this unit and in other treatment facilities, that she has not learned DBT skills, but it seems unlikely. She will be encouraged to make productive use of the therapeutic milieu within the constraints of the behavioral modification plan that it is in place to forestall the negative therapeutic reactions that have routinely occurred during her hospitalizations. Early on, she is showing some indications that she might be able to successfully comply with the behavioral modification plan to graduate into privileges to allow productive use of groups without the typical disruptiveness that has made that impossible during past admissions. We will be looking towards placement to the [facility]. We will be restarting for now the Prolixin that in the past she reports has been of some help in mitigating command auditory hallucinations that she is now experiencing. We will also be gathering collateral from [facility], from which she reports she has lapsed care and, in fact, states that she was discharged from that program. She is on 15 minute checks. She is full code status. She has been admitted on a 9.39 status. 08.11.16 Ms Pérez today reports uncertainty as to her mood, but denies any dangerous intent or plan, and only hearing voices, thought not telling her to hurt herself , only contradicting her thoughts. She has no physical complaints and remains in tentative behavioral control. Given recent exacerbation of illness, plan is to refer [facility] for long term care social worker care and stabilization. Awaiting return call from [facility] for collateral to guide care. Just received call from nursing as typing this report that she is now having CAH to SIB. Will add Zyprexa ODT 5 mg q4H prn against that. 1.3.17 Ms Pérez reports feeling ready for discharge, but I have not been able to confirm yet that her mother is willing to take her home. Her [facility] therapist is advocating for placement either into [facility] or to an out of state DBT- based program that her supportive employment case manager had been researching. Plan - Plan Treatment Plan: Name: FILOMENA PÉREZ Birthdate: 1990 [id number] Continue current meds and plan with behavioral modification plan against countertherapeutic behaviors. Gather collateral. Monitor MS and safety. Arrange disposition, likely to be discharge home with follow up at [facility] unless we get word today from them of DBT program being available, though odd that today is first I am hearing of this option. Continued Medication Management: Continue Outpt Medication Medications: Current Medications Acetaminophen (Tylenol Tab*) 650 mg PO Q6H PRN PRN Reason: for pain; or Temp >101 F Last Admin: 08/11/16 15:27 Dose: 650 mg Al Hydrox/Mg Hydrox/Simethicone (Maalox Plus*) 30 ml PO Q4H PRN PRN Reason: INDIGESTION Benztropine Mesylate (Cogentin Tab*) 1 mg PO BID [facility] Last Admin: 08/15/16 09:39 Dose: 1 mg Chlorpromazine HCl (Thorazine Tab*) 25 mg PO BEDTIME [facility] Last Admin: 08/14/16 20:04 Dose: 25 mg Fluphenazine HCl (Prolixin Tab*) 5 mg PO DAILY [facility] Last Admin: 08/15/16 09:39 Dose: 5 mg Hydroxyzine HCl (Atarax Tab*) 50 mg PO Q4H PRN PRN Reason: AGITATION/ANXIETY Last Admin: 08/15/16 07:32 Dose: 50 mg Multivitamins (Theragran Tab*) 1 tab PO DAILY [facility] Last Admin: 08/15/16 09:42 Dose: Not Given Naproxen (Naprosyn Tab*) 500 mg PO Q12H PRN PRN Reason: PAIN Last Admin: 08/14/16 09:48 Dose: 500 mg Nicotine (Nicotine Inhaler*) 10 mg INH Q2H PRN PRN Reason: CRAVING Last Admin: 08/15/16 12:18 Dose: 10 mg Nicotine Polacrilex (Nicotine Gum*) 2 mg PO Q2H PRN PRN Reason: CRAVING Last Admin: 08/15/16 11:26 Dose: 2 mg Olanzapine (Zyprexa * Tab Odt) 5 mg PO Q4H PRN PRN Reason: AGITATION Last Admin: 08/15/16 07:05 Dose: 5 mg Tamsulosin HCl (Flomax Cap*) 0.4 mg PO 0900 [facility] Last Admin: 08/15/16 09:39 Dose: 0.4 mg - Discharge Plan Discharge Plan: Outpatient Follow Up - unless DBT program reported by [facility] clinician has a firm referral
[2016-08-15] MEDS ORDERED: diPHENhydraMINE IV* 50 MG/ML 1 ml VIAL (BENADRYL) IM ONE (15:41)
[2016-08-15] MEDS ORDERED: Haloperidol INJ IV/IM* 5 MG/ML AMP IM ONE (15:41)
[2016-08-15] MEDS ORDERED: LORazepam INJ* 2 MG/ML 1 ML VIAL IM ONE (15:42)
--- NOTE | 2016-08-15 15:46 | PN ---
Progress Note - Progress Note Note: Marly requested IM Haldol 5 mg, Bendadryl 50 mg, and Ativan 2 mg to help maintain behavioral control against escalating agitation over her frustration at not being transferred to state [facility] and not being discharged without confirmation of a safe discharge plan. Request was granted.
[2016-08-15] MEDS: chlorproMAZINE TAB* 25 MG PO SCH (20:50)
[2016-08-16] MEDS: hydrOXYzine HCL TAB* 50 MG PO PRN (01:06)
[2016-08-16] MEDS: OLANzapine TAB*ODT* 5 MG PO PRN (01:06)
[2016-08-16] MEDS: Nicotine Inhaler* 10 MG AMP INH PRN ×3 (01:30→11:33)
[2016-08-16] MEDS ORDERED: Mouth Piece, Nicotine* 1 EACH CARTRIDGE ONE (01:30)
[2016-08-16 07:28] VITALS: BP 144/71
[2016-08-16] MEDS: Tamsulosin CAP* 0.4 MG PO SCH (08:23)
[2016-08-16] MEDS: Benztropine TAB* 1 MG PO SCH (08:23)
[2016-08-16] MEDS: Vitamin THERAPEUTIC TAB PO SCH ×2 (08:23→08:33)
[2016-08-16] MEDS: fluPHENAZine HCL TAB* 5 MG PO SCH (08:23)
[2016-08-16] MEDS: NICOTINE GUM 2 MG PO PRN ×2 (08:25→10:30)
--- NOTE | 2016-08-16 08:48 | DS ---
Subjective - Subjective Service Types: [id number] [facility] Day Mgmt simple under 30 min Discharge Date: 08/16/16 Subjective: Marly reports today that she again feels safe and ready for discharge. Staff at the end of the day yesterday were finally able to reach her mother Marcial, who reports Marly is welcome back to her home and she has no concerns for Marly's safety if discharged home. She was made aware of the circumstances leading to her admission. Marly also received a call from her girlfriend Amelia, who reported that her plan to leave the area is months off. Marly has no physical complaints. Objective - Appearance Appearance: Obese Dysmorphic Features: No Hygiene: Normal Grooming: Fairly Well Kept - Behavior Psychomotor Activities: Normal Exhibits Abnormal Movement: No - Attitude and Relatedness Attitude and Relatedness: Cooperative Eye Contact: Good - Speech Quality: Unpressured Latencies: Normal Quantity: Appropriate - Mood Patient's Decription of Mood: "Fine" - Affect Observed Affect: Fair Affect Consistent with: Euthymia - Thought Process Patient's Thought Process: Coherent, Goal Directed Thought Content: No Passive Wish, No Suicidal Planning, No Homicidal Ideation, No Paranoid Ideation - Sensorium Experiencing Hallucinations: No, Sensorium is Clear Type of Hallucinations: Visual: No, Auditory: No, Command: No - Level of Consciousness Level of Consciousness: Alert Orientation: Yes Intact, Yes Orientated to Time, Yes Orientated to Place, Yes Orientated to Person - Impulse Control Impulse Control: Tenuous - chronically, but stable today - Insight and Judgement Insight and Judgement: Poor - chronically, but seeks help when in crisis - Group Participation Particating in Group Activities: No Group Participation Comments: none in past 24 hrs - Medication Management Medication Management Adherence: Yes Treatment Course & Assessment Clinical Course & Impression: ON admission 16: Ms. Pérez is a 26-year-old woman with a history of severe borderline personality disorder. She has been readmitted to the unit with report of suicidal ideation, still ongoing with commands and auditory hallucinations to harm herself. She states it is her goal for this admission to transfer to the [facility] for longer term care, unless her mother would relent and allow her to return to her home. She reports that she is despondent over the planned departure of her girlfriend, Wendi. This has been reported on each admission as a tumultuous and unstable relationship. She does surprisingly report to me today never having had any sort of coherent treatment for borderline personality disorder. I suppose that it is possible that because of the extremely chaotic presentation that she has had on this unit and in other treatment facilities, that she has not learned DBT skills, but it seems unlikely. She will be encouraged to make productive use of the therapeutic milieu within the constraints of the behavioral modification plan that is in place to forestall the negative therapeutic reactions that have routinely occurred during her hospitalizations. Early on, she is showing some indications that she might be able to successfully comply with the behavioral modification plan to graduate into privileges to allow productive use of groups without the typical disruptiveness that has made that impossible during past admissions. We will be looking towards placement to the [facility]. We will be restarting for now the Prolixin that in the past she reports has been of some help in mitigating command auditory hallucinations that she is now experiencing. We will also be gathering collateral from [facility], from which she reports she has lapsed care and, in fact, states that she was discharged from that program. She is on 15 minute checks. She is full code status. She has been admitted on a 9.39 status. [id number] Ms Pérez today reports uncertainty as to her mood, but denies any dangerous intent or plan, and only hearing voices, though not telling her to hurt herself , only contradicting her thoughts. She has no physical complaints and remains in tentative behavioral control. Given recent exacerbation of illness, plan is to refer to [facility] for shelter care and stabilization. Awaiting return call from [facility] for collateral to guide care. Just received call from nursing as typing this report that she is now having CAH to SIB. Will add Zyprexa ODT 5 mg q4H prn against that. 17 Ms Pérez reports feeling ready for discharge, but I have not been able to confirm yet that her mother is willing to take her home. Her [facility] therapist is advocating for placement either into [place] or to an out of state DBT- based program that her pillowcase maker had been researching. 17 Marly's mother Marcial was finally contacted at around 5 pm yesterday after multiple calls went unanswered, placed by myself and other staff as well as Marly. Bonita confirms that she is ready for Marly to come home, and has no concerns for her safety. Marly continues to report a sustained remission of SI and CAH. She says that she feels safe for discharge again today. This represents a fairly stable presentation compared with the severe lability that she has in the past demonstrated on this unit, even in the hours prior to discharge on many occasions. She is therefore assessed as at no acutely increased risk of harm to self or others. She is also demonstrating adequate self-care to avoid harm. She remains at moderate to high chronic risk of harm to self particularly, but also to others, due to her impulsivity. Dozens of hospitalizations, including extended admissions to [facility], have produced only a partial improvement of her impulsive self-injurious behavior. We did attempt once again to place this young woman with severe and persistent mental illness into the [facility], but our applications were rejected at both [facility] covering this part of the [facility]. The airport planner on the case, Ms Ni, advocated strongly for admission for longer term care. We have been in touch with the treatment team at [facility], who report that they are working on placement into an inpatient program with emphasis on Dialectical Behavioral Therapy. Marly requested we continue both Prolixin and Thorazine, as these 2 antipsychotic medications have been helpful in moderating impulsivity, reducing hallucinations, and promoting sleep, and single antipsychotics medications in her regimen have had less benefit. I discussed with her side effect risks of these medications, including but not limited to dystonic reactions and tardive dyskinesia. She voiced understanding and acceptance of this risk for the sake of benefits received by taking these meds. Merits Inpatient Hospitalization: No Clear for Discharge: Adequate Clinical Respons, Acceptable Safety Profile, Low Utility of Inpt Care Inpatient DSM-IV Dx: 1. Borderline personality disorder. 2. Borderline intellectual functioning. 3. Posttraumatic stress disorder/dissociative disorder. 4. Adjustment disorder. 5. Depressive disorder. - Morrison II MR and Personality Disorder: Borderline Personality Disorder - Morrison III Medical Illness: Obesity, seizure disorder, urinary retention, herpes zoster - Morrison IV Stressors: conflict with mother, girlfriend Family: mother Primary Support Group: girlfriend - Morrison V WHL-[id number]: 60 Estimate of Highest-Past Year: 60 Discharge Planning - Discharge Planning Discharge Plan: Outpatient Follow Up [place] [facility] Recommendations for Continuing Care: Medication Management, Psychotherapy Medications: Benztropine Mesylate (Cogentin Tab*) 1 mg PO daily Chlorpromazine HCl (Thorazine Tab*) 50 mg PO BEDTIME KEVIN Fluphenazine HCl (Prolixin Tab*) 5 mg PO DAILY [facility] Last Admin: 08/16/16 08:23 Dose: 5 mg Hydroxyzine HCl (Atarax Tab*) 50 mg PO Q4H PRN PRN Reason: AGITATION/ANXIETY Last Admin: 08/16/16 01:06 Dose: 50 mg Naproxen (Naprosyn Tab*) 500 mg PO Q12H PRN PRN Reason: PAIN Last Admin: 08/14/16 09:48 Dose: 500 mg Tamsulosin HCl (Flomax Cap*) 0.4 mg PO 0900 [facility] Last Admin: 08/16/16 08:23 Dose: 0.4 mg Discharge Planning: Prescriptions provided for discharge [x] Yes : prolixin and cogentin scripts sent into [facility] - reported good supply available of other meds [] No x Follow up care details as per social work arrangements. Patient response to discharge plan: [x] eager for discharge [x] agreeable with discharge plan [] ambivalent about discharge [] disagrees with discharge today
== END 2016-08-16 11:50 | disposition home or self-care (01) | DRG 752 ==
LOC: ED 08:39 → BSU 14:24
PROVIDERS: ADMIT Psychiatry & Neurology Psychiatry; ATTEND Psychiatry & Neurology Psychiatry
PROC: 0HQEXZZ Repair Left Lower Arm Skin, External Approach (ICD-10-PCS; principal; 2016-08-09)
DX: F60.3 Borderline personality disorder (principal); B02.9 Zoster without complications; F43.10 Post-traumatic stress disorder, unspecified; F44.9 Dissociative and conversion disorder, unspecified; F32.9 Major depressive disorder, single episode, unspecified; F43.21 Adjustment disorder with depressed mood; E66.9 Obesity, unspecified; G40.909 Epilepsy, unspecified, not intractable, without status epilepticus; R33.9 Retention of urine, unspecified; S61.512A Laceration without foreign body of left wrist, initial encounter; X78.1XXA Intentional self-harm by knife, initial encounter; Z79.899 Other long term (current) drug therapy; Z68.31 Body mass index [BMI] 31.0-31.9, adult; Z88.0 Allergy status to penicillin; Z81.0 Family history of intellectual disabilities; Z81.8 Family history of other mental and behavioral disorders; Z87.898 Personal history of other specified conditions; Y92.9 Unspecified place or not applicable
CPT/HCPCS: 36415; 80053; 80301; 80320; 80329; 81003; 81015; 84443; 84702; 85025; 87077; 87086; 99222; 99231; 99238; A9270-GY; G0479; G0480; J1200; J1630; J2060

== ENCOUNTER 2016-08-27 19:57 | Emergency (ER) | payer MEDICAID, OTHER ==
[2016-08-27 20:37] LABS: Hematocrit 40 % (35-47); Hemoglobin 13.6 g/dl (12.0-16.0); Mean Corpuscular HGB Conc 34 g/dl (31-36); Mean Corpuscular Hemoglobin 29 pg (27-31); Mean Corpuscular Volume 86 fL (80-97); Mean Platelet Volume 9 um3 (7.4-10.4); Red Blood Count 4.71 10^6/ul (4.0-5.4); Red Cell Distribution Width 14 % (10.5-15)
[2016-08-27 20:38] LABS: Add Diff/Slide Review? Slide Review Added; Comments Flag Yes
[2016-08-27 20:40] LABS: Urine Bacteria 2+ (Absent); Urine Bilirubin Negative (Negative); Urine Glucose Negative (Negative); Urine Nitrite Negative (Negative)
[2016-08-27 20:48] LABS: ALT 22 U/L (7-52); AST 15 U/L (13-39); Albumin 4.3 g/dL (3.2-5.2); Alkaline Phosphatase 66 U/L (34-104); Anion Gap 9 mmol/L (2-11); BUN/Creatinine Ratio 11.8 (8-20); Blood Urea Nitrogen 10 mg/dL (6-24); CO2 Carbon Dioxide 23 mmol/L (22-32); Calcium 9.3 mg/dL (8.6-10.3); Chloride 104 mmol/L (101-111); EGFR African American 102.4 (>60); EGFR Non-African American 79.6 (>60); Globulin 3.5 g/dL (2-4); Glucose 91 mg/dL (70-100); Potassium 3.4 mmol/L (3.5-5.0); Sodium 136 mmol/L (133-145); Total Protein 7.8 g/dL (6.4-8.9)
[2016-08-27 20:53] LABS: Benzodiazepine Urine Screen Presumptive Positive (None Detect)
[2016-08-27] MEDS ORDERED: LORazepam TAB(*) 1 MG PO ONE (20:53)
[2016-08-27] MEDS ORDERED: Haloperidol TAB* 5 MG PO ONE (20:53)
[2016-08-27] MEDS ORDERED: diPHENhydraMINE PO* 50 MG PO ONE (20:53)
[2016-08-27] MEDS ORDERED: Nicotine GUM* 2 MG ONE (20:58)
[2016-08-27] MEDS: Nicotine GUM* 2 MG PO PRN (21:01)
[2016-08-27 21:28] LABS: Acetaminophen < 15 mcg/mL; Alcohol 52 mg/dL (<10); Salicylate < 2.50 mg/dL (<30)
[2016-08-27 21:38] LABS: TSH (Thyroid Stimulating Horm) 1.94 mcIU/mL (0.34-5.60)
[2016-08-28] MEDS ORDERED: LORazepam TAB(*) 1 MG ONE (01:32)
[2016-08-28] MEDS ORDERED: Haloperidol TAB* 5 MG ONE (01:33)
[2016-08-28] MEDS ORDERED: diPHENhydraMINE PO* 50 MG ONE (01:33)
[2016-08-28] MEDS ORDERED: Haloperidol TAB* 5 MG PO ONE ×2 (01:40→08:02)
[2016-08-28] MEDS ORDERED: diPHENhydraMINE PO* 50 MG PO ONE ×2 (01:41→08:02)
[2016-08-28] MEDS ORDERED: LORazepam TAB(*) 1 MG PO ONE ×2 (01:41→08:02)
[2016-08-28] MEDS: Nicotine GUM* 2 MG PO PRN ×2 (01:45→08:09)
--- NOTE | 2016-08-28 03:33 | ED ---
Progress - Consult/PCP Time Called: 21:25 Course/Dx - Course Course Of Treatment: Pt has been accepted at [facility] she is being transferred with the diagnosis of suicidality she is in stable condition - Diagnoses Provider Diagnoses: Suicidal behavior
[2016-08-28 04:48] VITALS: BP 126/65
[2016-08-28 08:41] LABS: Syphilis Index < 0.1 Index
--- NOTE | 2016-08-28 12:04 | ED ---
Wilian Lofton Billy, scribed for Eduardo Lee MD on 08/27/16 at 2038 . Psychiatric Complaint - HPI Summary HPI Summary: Patient is a 26 year-old female coming to [facility] with complaint of SI. She states that she hears voices in her head that told her to cut herself and that nobody cares about her. She has self-inflicted lacerations on her left forearm from a razor blade, including scarring from numerous previous cuts. She also states that she needs to have the sabra removed from a self-inflicted arm laceration 3 weeks ago. - History Of Current Complaint Chief Complaint: ED Time Seen by Provider: 08/27/16 20:21 Hx Obtained From: Patient Hx Last Menstrual Period: MIRENA IUD Onset/Duration: Gradual Onset, Lasting Days, Still Present Timing: Constant Severity Initially: Moderate Severity Currently: Moderate Character: Depressed, Anxious Aggravating Factor(s): Nothing Alleviating Factor(s): Nothing Associated Signs And Symptoms: Positive: Hallucinating Related History: Positive For: Prior Psychiatric Issues Has Suicidal: Reports: Thoughts, Demonstrates Gesture, Has Prior Attempt(s) Has Homicidal: Denies: Thoughts - Allergies/Home Medications Allergies/Adverse Reactions: Allergies Allergy/AdvReac Type Severity Reaction Status Date / Time Penicillin V Allergy Severe Hives Verified 08/09/16 17:16 Latex Allergy Intermediate Rash Verified 08/09/16 17:16 Lactose Intolerance (GI) Allergy Diarrhea Verified 08/09/16 17:16 glue Allergy Rash Uncoded 08/09/16 17:16 steri strips Allergy Rash Uncoded 08/09/16 17:16 PMH/Surg Hx/FS Hx/Imm Hx Endocrine/Hematology History: Denies: Hx Anticoagulant Therapy, Hx Diabetes - Borderline, Hx Thyroid Disease, Other Endocrine/Hematological Disorders Cardiovascular History: Denies: Hx Hypertension, Hx Pacemaker/ICD, Other Cardiovascular Problems/ Disorders Respiratory History: Reports: Hx Asthma Denies: Hx Chronic Obstructive Pulmonary Disease (COPD), Other Respiratory Problems/Disorders GI History: Denies: Hx Ulcer, Other GI Disorders History: Reports: Other Problems/Disorders - Urinary Retention and Herpes Denies: Hx Renal Disease Musculoskeletal History: Denies: Other Musculoskeletal History Sensory History: Reports: Hx Contacts or Glasses Denies: Other Sensory Impairments Opthamlomology History: Reports: Hx Contacts or Glasses Denies: Other Sensory Impairments Neurological History: 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 Denies: Hx Dementia, Hx Developmental Delay, Other Neuro Impairments/ Disorders Psychiatric History: Reports: Hx Anxiety, Hx Depression, Hx Panic Disorder, Hx Post Traumatic Stress Disorder, Hx Inpatient Treatment, Hx Community Mental Health Tx, Hx Schizophrenia - Schizoaffective Disorder, Hx Bipolar Disorder, Hx Suicide Attempt, Hx of Violent Episodes Against Others - SEE VIOLENCE HX, Hx Substance Abuse, Other Psychiatric Issues/Disorders - COGNITIVELY LIMITED, BORDERLINE PERS D/O Denies: Hx Eating Disorder - Cancer History Hx Chemotherapy: No Hx Radiation Therapy: No Hx Palliative Cancer Treatment: No - Immunization History Date of Tetanus Vaccine: UTD Date of Influenza Vaccine: Unk Infectious Disease History: 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 - Social History Alcohol Use: None Alcohol Amount: "drank beer awhile ago" Hx Substance Use: No Substance Use Type: Reports: None Substance Use Comment - Amount & Last Used: Xanax and Ambien Hx Tobacco Use: Yes Smoking Status (MU): Light Every Day Tobacco Smoker Type: Cigarettes Amount Used/How Often: 1/2 PPD Length of Time of Smoking/Using Tobacco: 3 years Have You Smoked in the Last Year: Yes Review of Systems Positive: Other - lacerations Positive: Anxious, Depressed All Other Systems Reviewed And Are Negative: Yes Physical Exam Triage Information Reviewed: Yes Vital Signs On Initial Exam: Initial Vitals Temp Pulse Resp BP Pulse Ox 98.7 F 110 12 127/84 100 08/27/16 20:05 08/27/16 20:05 08/27/16 20:05 08/27/16 20:05 08/27/16 20:05 Vital Signs Reviewed: Yes Appearance: Positive: Well-Appearing, No Pain Distress Skin: Positive: Warm, Skin Color Reflects Adequate Perfusion, Dry, Other - Well- healed volar forearm laceration on the left mid-forearm. Three fresh lacerations on the left forearm, the most distal of which is 5cm long, middle laceration is 7cm, and the most proximal laceration is 7cm. She has cut herself over the path of previous scars. They are superficial but through the dermis. Head/Face: Positive: Normal Head/Face Inspection Eyes: Positive: Normal ENT: Positive: Normal ENT inspection Neck: Positive: Supple, Nontender Respiratory/Lung Sounds: Positive: Clear to Auscultation, Breath Sounds Present Cardiovascular: Positive: RRR Abdomen Description: Positive: Nontender, Soft Musculoskeletal: Positive: Normal Neurological: Positive: Normal Psychiatric: Positive: Anxious - mildly AVPU Assessment: Alert Procedures - Procedure Summary Procedure Summary: 8 sabra removed from previous left forearm laceration. 3 sabra placed in the most distal fresh laceration, 4 sabra in the middle laceration, and another 4 in the most proximal laceration. She was prepped and draped but she refused any anesthesia. She tolerated the stapling well however. Diagnostics - Vital Signs Vital Signs Temp Pulse Resp BP Pulse Ox 08/27/16 20:05 98.7 F 110 12 127/84 100 - Laboratory Lab Results: Lab Results 08/27/16 08/27/16 08/27/16 Range/Units 20:00 20:00 20:25 WBC 14.0 H (3.5-10.8) 10^3/ul RBC 4.71 (4.0-5.4) 10^6/ul Hgb 13.6 (12.0-16.0) g/dl Hct 40 (35-47) % MCV 86 (80-97) fL MCH 29 (27-31) pg MCHC 34 (31-36) g/dl RDW 14 (10.5-15) % Plt Count 307 (150-450) 10^3/ul MPV 9 (7.4-10.4) um3 Neut % (Auto) 70.5 (38-83) % Lymph % (Auto) 21.2 L (25-47) % [place] % (Auto) 6.3 (1-9) % Eos % (Auto) 1.1 (0-6) % Baso % (Auto) 0.9 (0-2) % Absolute Neuts (auto) 9.8 H (1.5-7.7) 10^3/ul Absolute Lymphs (auto) 3.0 (1.0-4.8) 10^3/ul Absolute Monos (auto) 0.9 H (0-0.8) 10^3/ul Absolute Eos (auto) 0.1 (0-0.6) 10^3/ul Absolute Basos (auto) 0.1 (0-0.2) 10^3/ul Absolute Nucleated RBC 0 10^3/ul Nucleated RBC % 0 Sodium (133-145) mmol/L Potassium (3.5-5.0) mmol/L Chloride (101-111) mmol/L Carbon Dioxide (22-32) mmol/L Anion Gap (2-11) mmol/L BUN (6-24) mg/dL Creatinine (0.51-0.95) mg/dL Est GFR ( Amer) (>60) Est GFR (Non-Af Amer) (>60) BUN/Creatinine Ratio (8-20) Glucose (70-100) mg/dL Calcium (8.6-10.3) mg/dL Total Bilirubin (0.2-1.0) mg/dL AST (13-39) U/L ALT (7-52) U/L Alkaline Phosphatase (34-104) U/L Total Protein (6.4-8.9) g/dL Albumin (3.2-5.2) g/dL Globulin (2-4) g/dL Albumin/Globulin Ratio (1-3) TSH (0.34-5.60) mcIU/mL Beta HCG, Quant mIU/mL Urine Color Yellow Urine Appearance Cloudy Urine pH 7.0 (5-9) Ur Specific [place] 1.005 L (1.010-1.030) Urine Protein Negative (Negative) Urine Ketones Negative (Negative) Urine Blood 1+ H (Negative) Urine Nitrate Negative (Negative) Urine Bilirubin Negative (Negative) Urine Urobilinogen Negative (Negative) Ur Leukocyte Esterase Trace H (Negative) Urine WBC (Auto) 1+(6-10/hpf) H (Absent) Urine RBC (Auto) 1+(3-5/hpf) H (Absent) Ur Squamous Epith Cells Present H (Absent) Urine Bacteria 2+ H (Absent) Urine Glucose Negative (Negative) Salicylates (<30) mg/dL Urine Opiates Screen None detected (None Detect) Acetaminophen mcg/mL Ur Barbiturates Screen None detected (None Detect) Ur Phencyclidine Scrn None detected (None Detect) Ur Amphetamines Screen None detected (None Detect) U Benzodiazepines Scrn Presumptive positive H (None Detect) Urine Cocaine Screen None detected (None Detect) U Cannabinoids Screen None detected (None Detect) Serum Alcohol (<10) mg/dL Syphilis IgG Antibody (Nonreactive) 08/27/16 08/28/16 Range/Units 20:25 20:25 WBC (3.5-10.8) 10^3/ul RBC (4.0-5.4) 10^6/ul Hgb (12.0-16.0) g/dl Hct (35-47) % MCV (80-97) fL MCH (27-31) pg MCHC (31-36) g/dl RDW (10.5-15) % Plt Count (150-450) 10^3/ul MPV (7.4-10.4) um3 Neut % (Auto) (38-83) % Lymph % (Auto) (25-47) % [place] % (Auto) (1-9) % Eos % (Auto) (0-6) % Baso % (Auto) (0-2) % Absolute Neuts (auto) (1.5-7.7) 10^3/ul Absolute Lymphs (auto) (1.0-4.8) 10^3/ul Absolute Monos (auto) (0-0.8) 10^3/ul Absolute Eos (auto) (0-0.6) 10^3/ul Absolute Basos (auto) (0-0.2) 10^3/ul Absolute Nucleated RBC 10^3/ul Nucleated RBC % Sodium 136 (133-145) mmol/L Potassium 3.4 L (3.5-5.0) mmol/L Chloride 104 (101-111) mmol/L Carbon Dioxide 23 (22-32) mmol/L Anion Gap 9 (2-11) mmol/L BUN 10 (6-24) mg/dL Creatinine 0.85 (0.51-0.95) mg/dL Est GFR ( Amer) 102.4 (>60) Est GFR (Non-Af Amer) 79.6 (>60) BUN/Creatinine Ratio 11.8 (8-20) Glucose 91 (70-100) mg/dL Calcium 9.3 (8.6-10.3) mg/dL Total Bilirubin 0.30 (0.2-1.0) mg/dL AST 15 (13-39) U/L ALT 22 (7-52) U/L Alkaline Phosphatase 66 (34-104) U/L Total Protein 7.8 (6.4-8.9) g/dL Albumin 4.3 (3.2-5.2) g/dL Globulin 3.5 (2-4) g/dL Albumin/Globulin Ratio 1.2 (1-3) TSH 1.94 (0.34-5.60) mcIU/mL Beta HCG, Quant 1.12 mIU/mL Urine Color Urine Appearance Urine pH (5-9) Ur Specific [place] (1.010-1.030) Urine Protein (Negative) Urine Ketones (Negative) Urine Blood (Negative) Urine Nitrate (Negative) Urine Bilirubin (Negative) Urine Urobilinogen (Negative) Ur Leukocyte Esterase (Negative) Urine WBC (Auto) (Absent) Urine RBC (Auto) (Absent) Ur Squamous Epith Cells (Absent) Urine Bacteria (Absent) Urine Glucose (Negative) Salicylates < 2.50 (<30) mg/dL Urine Opiates Screen (None Detect) Acetaminophen < 15 mcg/mL Ur Barbiturates Screen (None Detect) Ur Phencyclidine Scrn (None Detect) Ur Amphetamines Screen (None Detect) U Benzodiazepines Scrn (None Detect) Urine Cocaine Screen (None Detect) U Cannabinoids Screen (None Detect) Serum Alcohol 52 H (<10) mg/dL Syphilis IgG Antibody Nonreactive (Nonreactive) Result Diagrams: 08/27/16 20:25 08/27/16 20:25 Lab Statement: Any lab studies that have been ordered have been reviewed, and results considered in the medical decision making process. Course/Dx - Course Course Of Treatment: Marly presented C/o hearing voices telling her to hurt herself and then cutting her left forearm. She has presented this way many times in the past and her left forearm is quite scarred. Ii closed her wound loosely as I don't really know how old it is and there is no chance of a cosmetic outcome.she is awaitng E. - Differential Dx/Clinical Impression Provider Diagnosis: Suicidal behavior, Forearm laceration - Physician Notifications Discussed Care Of Patient With: Dr. Reyes Time Discussed With Above Provider: 01:00 - Change of shift Discharge - Discharge Plan Condition: Stable Disposition: TRANS HIGHER LVL OF CARE FAC Referrals: Don Love, [employer] [Primary Care Provider] - The documentation as recorded by the Wilian haskins Billy accurately reflects the service I personally performed and the decisions made by me, Eduardo Lee MD.
== END 2016-08-28 08:53 | disposition short-term general hospital (02) ==
LOC: ED 19:57
DX: S51.812A Laceration without foreign body of left forearm, initial encounter (principal); X78.9XXA Intentional self-harm by unspecified sharp object, initial encounter; Y92.9 Unspecified place or not applicable; Z88.0 Allergy status to penicillin; F20.9 Schizophrenia, unspecified; F31.9 Bipolar disorder, unspecified; F41.9 Anxiety disorder, unspecified; F43.10 Post-traumatic stress disorder, unspecified; F17.210 Nicotine dependence, cigarettes, uncomplicated
CPT/HCPCS: 12002; 36415; 80053; 80307; 80320; 80329; 81003; 81015; 84443; 84702; 85025; 86592; 87086; 93005; 99285; A9270-GY; G0480

== ENCOUNTER 2016-09-01 22:13 | Inpatient (IN) | payer MEDICAID, OTHER ==
[2016-09-01] MEDS ORDERED: Magnesium Sulfate 2 GM IV* 2 GM/50 ML BAG IVPB ONE (22:23)
[2016-09-01] MEDS ORDERED: cefTRIAXone(*) 1 GM in NS 0.9% 50 ML* 50 ML IVPB ONE (22:23)
[2016-09-01] MEDS ORDERED: NS 0.9% 1000 ML* 1,000 ML IV ONE (22:23)
[2016-09-01] MEDS ORDERED: Charcoal 50 GM/Sorbitol* 50 GM/240 ML BTL PO ONE (22:26)
[2016-09-01] MEDS ORDERED: Albuterol 2.5 MG/3 ML NEB.SOL* (0.083%) INH PRN (22:43)
[2016-09-01 22:54] LABS: Hematocrit 40 % (35-47); Hemoglobin 13.4 g/dl (12.0-16.0); Mean Corpuscular HGB Conc 33 g/dl (31-36); Mean Corpuscular Hemoglobin 29 pg (27-31); Mean Corpuscular Volume 86 fL (80-97); Mean Platelet Volume 9 um3 (7.4-10.4); Red Blood Count 4.66 10^6/ul (4.0-5.4); Red Cell Distribution Width 14 % (10.5-15); White Blood Count 14.7 10^3/ul (3.5-10.8)
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
[2016-09-01] MEDS ORDERED: Pantoprazole IV* 40 MG IV SCH (23:00)
[2016-09-01 23:10] LABS: ALT 20 U/L (7-52); AST 15 U/L (13-39); Albumin 4.3 g/dL (3.2-5.2); Alkaline Phosphatase 66 U/L (34-104); Anion Gap 8 mmol/L (2-11); BUN/Creatinine Ratio 16.1 (8-20); Blood Urea Nitrogen 14 mg/dL (6-24); CO2 Carbon Dioxide 24 mmol/L (22-32); Calcium 9.4 mg/dL (8.6-10.3); Chloride 104 mmol/L (101-111); EGFR African American 99.7 (>60); EGFR Non-African American 77.5 (>60); Globulin 3.4 g/dL (2-4); Glucose 105 mg/dL (70-100); Potassium 3.7 mmol/L (3.5-5.0); Sodium 136 mmol/L (133-145); Total Protein 7.7 g/dL (6.4-8.9)
[2016-09-02 00:05] LABS: Acetaminophen < 15 mcg/mL; Alcohol < 10 mg/dL (<10); Salicylate < 2.50 mg/dL (<30)
[2016-09-02 00:16] LABS: TSH (Thyroid Stimulating Horm) 3.37 mcIU/mL (0.34-5.60)
[2016-09-02] MEDS: NS 0.9% 1000 ML* 1,000 ML IV SCH ×2 (02:37→10:30)
[2016-09-02 05:32] LABS: Hematocrit 39 % (35-47); Hemoglobin 12.7 g/dl (12.0-16.0); Mean Corpuscular HGB Conc 33 g/dl (31-36); Mean Corpuscular Hemoglobin 29 pg (27-31); Mean Corpuscular Volume 87 fL (80-97); Mean Platelet Volume 9 um3 (7.4-10.4); Red Blood Count 4.46 10^6/ul (4.0-5.4); Red Cell Distribution Width 14 % (10.5-15); White Blood Count 14.7 10^3/ul (3.5-10.8)
[2016-09-02 05:43] LABS: BUN/Creatinine Ratio 12.7 (8-20); Calcium 8.7 mg/dL (8.6-10.3); EGFR African American 111.4 (>60); EGFR Non-African American 86.7 (>60); Magnesium 2.2 mg/dL (1.9-2.7); Potassium 3.9 mmol/L (3.5-5.0)
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
[2016-09-02] MEDS ORDERED: Nicotine GUM* 2 MG PO PRN (08:22)
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
--- NOTE | 2016-09-02 08:50 | PN ---
Subjective Date of Service: 09/02/16 Interval History: This is an addendum to today's [id number] note. Objective Active Medications: Albuterol (Ventolin 2.5 Mg/3 Ml Neb.Ginny*) 2.5 mg INH Q2H PRN PRN Reason: SOB/WHEEZING Sodium Chloride (Ns 0.9% 1000 Ml*) 1,000 mls @ 125 mls/hr IV PER RATE KEVIN Stop: 09/02/16 13:00 Last Admin: 09/02/16 02:37 Dose: 125 mls/hr Nicotine Polacrilex (Nicotine Gum*) 2 mg PO Q2H PRN PRN Reason: CRAVING Vital Signs 09/01/16 09/01/16 09/01/16 23:00 23:30 23:59 Temperature Pulse Rate 96 88 Respiratory 17 20 17 Rate Blood Pressure 123/80 134/106 (mmHg) O2 Sat by Pulse 96 93 Oximetry 09/02/16 09/02/16 09/02/16 00:00 00:01 00:14 Temperature Pulse Rate 85 Respiratory 18 17 Rate Blood Pressure 126/56 126/56 (mmHg) O2 Sat by Pulse 93 Oximetry 09/02/16 09/02/16 09/02/16 00:15 00:18 00:19 Temperature Pulse Rate 87 Respiratory 20 Rate Blood Pressure 126/56 126/56 (mmHg) O2 Sat by Pulse 92 Oximetry 09/02/16 09/02/16 09/02/16 00:27 00:29 00:30 Temperature Pulse Rate 86 86 Respiratory 17 16 19 Rate Blood Pressure 117/85 135/66 (mmHg) O2 Sat by Pulse 96 96 Oximetry 09/02/16 09/02/16 09/02/16 00:45 00:48 01:00 Temperature 97.7 F Pulse Rate 105 88 83 Respiratory 17 19 Rate Blood Pressure 151/92 117/85 123/54 (mmHg) O2 Sat by Pulse 97 96 96 Oximetry 09/02/16 09/02/16 09/02/16 01:15 01:30 01:45 Temperature Pulse Rate 81 82 79 Respiratory 18 18 17 Rate Blood Pressure 113/56 110/54 108/59 (mmHg) O2 Sat by Pulse 96 95 96 Oximetry 09/02/16 09/02/16 09/02/16 02:00 02:15 02:30 Temperature Pulse Rate 77 80 76 Respiratory 19 16 17 Rate Blood Pressure 105/44 116/66 123/51 (mmHg) O2 Sat by Pulse 95 96 95 Oximetry 09/02/16 09/02/16 09/02/16 02:45 03:00 03:50 Temperature 98.0 F Pulse Rate 75 69 Respiratory 17 16 Rate Blood Pressure 121/56 118/54 (mmHg) O2 Sat by Pulse 95 96 Oximetry 09/02/16 09/02/16 09/02/16 04:00 05:00 05:46 Temperature Pulse Rate 71 70 Respiratory 14 17 17 Rate Blood Pressure 128/66 116/64 (mmHg) O2 Sat by Pulse 96 96 Oximetry 09/02/16 09/02/16 09/02/16 06:00 07:00 08:00 Temperature 99.3 F Pulse Rate 76 68 Respiratory 17 15 Rate Blood Pressure 123/59 122/55 (mmHg) O2 Sat by Pulse 96 96 Oximetry Oxygen Devices in Use Now: None Result Diagrams: 09/02/16 05:05 09/02/16 05:05 Additional Lab and Data: Lab Results 09/01/16 09/01/16 Range/Units 22:40 22:40 WBC 14.7 H (3.5-10.8) 10^3/ul RBC 4.66 (4.0-5.4) 10^6/ul Hgb 13.4 (12.0-16.0) g/dl Hct 40 (35-47) % MCV 86 (80-97) fL MCH 29 (27-31) pg MCHC 33 (31-36) g/dl RDW 14 (10.5-15) % Plt Count 341 (150-450) 10^3/ul MPV 9 (7.4-10.4) um3 Neut % (Auto) 71.6 (38-83) % Lymph % (Auto) 18.6 L (25-47) % [place] % (Auto) 8.1 (1-9) % Eos % (Auto) 1.3 (0-6) % Baso % (Auto) 0.4 (0-2) % Absolute Neuts (auto) 10.5 H (1.5-7.7) 10^3/ul Absolute Lymphs (auto) 2.7 (1.0-4.8) 10^3/ul Absolute Monos (auto) 1.2 H (0-0.8) 10^3/ul Absolute Eos (auto) 0.2 (0-0.6) 10^3/ul Absolute Basos (auto) 0.1 (0-0.2) 10^3/ul Absolute Nucleated RBC 0.01 10^3/ul Nucleated RBC % 0.1 Sodium 136 (133-145) mmol/L Potassium 3.7 (3.5-5.0) mmol/L Chloride 104 (101-111) mmol/L Carbon Dioxide 24 (22-32) mmol/L Anion Gap 8 (2-11) mmol/L BUN 14 (6-24) mg/dL Creatinine 0.87 (0.51-0.95) mg/dL Est GFR ( Amer) 99.7 (>60) Est GFR (Non-Af Amer) 77.5 (>60) BUN/Creatinine Ratio 16.1 (8-20) Glucose 105 H (70-100) mg/dL Calcium 9.4 (8.6-10.3) mg/dL Total Bilirubin 0.30 (0.2-1.0) mg/dL AST 15 (13-39) U/L ALT 20 (7-52) U/L Alkaline Phosphatase 66 (34-104) U/L Troponin I 0.00 (<0.04) ng/mL Total Protein 7.7 (6.4-8.9) g/dL Albumin 4.3 (3.2-5.2) g/dL Globulin 3.4 (2-4) g/dL Albumin/Globulin Ratio 1.3 (1-3) TSH 3.37 (0.34-5.60) mcIU/mL Beta HCG, Quant < 0.60 mIU/mL Salicylates < 2.50 (<30) mg/dL Acetaminophen < 15 mcg/mL Serum Alcohol < 10 (<10) mg/dL Microbiology and Other Data: Microbiology 09/02/16 00:43 Nasal Screen MRSA (PCR)(ABHIJEET) - Final Nasal Mrsa Negative Assess/Plan/Problems-Billing Assessment: - Patient Problems (1) Suicidal overdose Current Visit: No Status: Acute Priority: High Onset Date: 09/12/14 Code (s): T50.902A - POISONING BY UNSP DRUG/MEDS/BIOL SUBST, SELF-HARM, INIT SNOMED Code(s): 36420015 Comment: Psychiatry consult pending. I will check with her pharmacy about her recent meds. (2) Urinary retention Current Visit: No Status: Acute Priority: Medium Onset Date: 04/17/15 Code(s): R33.9 - RETENTION OF URINE, UNSPECIFIED SNOMED Code(s): 789373968 Comment: Bladder scan shows volume of 588 ml. Pt has not voided in ICU. Kwon ordered Resume tamsulosin.
--- NOTE | 2016-09-02 09:13 | PN ---
Progress Note - Progress Note Note: Rx from Sudarshan Rainey: Rx since 08/13/16: Hydroxyzine 50 mg, Protonix 40 mg, trazadone 100 mg, Invega 6 mg, metazepam 7.5 mg (? mirtazapine), benztropine 1 mg, Latuda 40 mg, Fluphenazine 5 mg # 30 , Aug.13.
[2016-09-02 14:14] LABS: Urine Bilirubin Negative (Negative); Urine Glucose Negative (Negative); Urine Nitrite Negative (Negative)
[2016-09-02 14:31] LABS: Benzodiazepine Urine Screen None Detected (None Detect)
[2016-09-02 17:44] VITALS: BP 141/92
[2016-09-02] MEDS ORDERED: Tamsulosin CAP* 0.4 MG PO SCH (21:00)
--- NOTE | 2016-09-03 01:51 | DS ---
DISCHARGE SUMMARY: DATE OF ADMISSION: DATE OF DISCHARGE: 09/02/16 HISTORY: This 26-year-old woman was admitted after she told the emergency room staff that she had taken 20 olanzapine 5 mg tablets at about 9 p.m. on the day of admission. She said she took them all at once in an attempt to hurt herself. She told her mother about this who then called 911. The rest of the history is detailed in the admission note. The patient was admitted in the intensive care unit. She was given activated charcoal, intravenous fluids, and other supportive care. Her diet was advanced. She was essentially recovered from her overdose and was transferred to the mental health unit after psychiatric consultation. FINAL DIAGNOSES: 1. Suicide attempt. 2. Borderline personality disorder. 3. Multiple self inflicted lacerations of left arm. [id number]/[facility] #: [id number] MTDD
[2016-09-03] MEDS ORDERED: Omeprazole CAP* 20 MG PO SCH (06:00)
--- NOTE | 2016-09-03 14:51 | PN ---
Progress Note - Progress Note Note: Time spent on discharge 60 minutes.
== END 2016-09-02 19:55 | disposition short-term general hospital (02) | DRG 812 ==
LOC: ED 22:13 → ICU 22:57
PROVIDERS: ADMIT Hospitalist; ATTEND Internal Medicine
DX: T43.592A Poisoning by other antipsychotics and neuroleptics, intentional self-harm, initial encounter (principal); F33.9 Major depressive disorder, recurrent, unspecified; Y92.009 Unspecified place in unspecified non-institutional (private) residence as the place of occurrence of the external cause; F60.3 Borderline personality disorder; F17.210 Nicotine dependence, cigarettes, uncomplicated; R33.9 Retention of urine, unspecified; F09 Unspecified mental disorder due to known physiological condition; Z91.040 Latex allergy status; Z91.011 Allergy to milk products; Z88.0 Allergy status to penicillin; Z88.8 Allergy status to other drugs, medicaments and biological substances; Z91.048 Other nonmedicinal substance allergy status; X58.XXXA Exposure to other specified factors, initial encounter
CPT/HCPCS: 36415; 80048; 80053; 80307; 80320; 80329; 81003; 83735; 84443; 84484; 84702; 85025; 85027; 87040; 87641; 93005; 99406; A9270-GY; G0480; J0696; J3475

== ENCOUNTER 2016-09-02 20:00 | Inpatient (IN) | payer MEDICAID, OTHER ==
[~2016-09-02 20:00] MED LIST: Charcoal 50 GM/Sorbitol* 50 GM/240 ML BTL ONE
[2016-09-03] MEDS ORDERED: Mouth Piece, Nicotine* 1 EACH CARTRIDGE INH SCH (07:52)
[2016-09-03] MEDS ORDERED: Acetaminophen TAB* 325 MG PO PRN (07:52)
[2016-09-03] MEDS ORDERED: Al Hydrox/Mg Hydrox/Simet LIQ* 30 ML UDC PO PRN (07:52)
[2016-09-03] MEDS: Vitamin THERAPEUTIC TAB PO SCH (09:41)
[2016-09-03] MEDS ORDERED: Mouth Piece, Nicotine* 1 EACH CARTRIDGE ONE (09:44)
[2016-09-03] MEDS: Nicotine GUM* 2 MG PO PRN ×5 (09:44→18:01)
[2016-09-03] MEDS: Nicotine Inhaler* 10 MG AMP INH PRN ×2 (09:44→15:20)
--- NOTE | 2016-09-03 17:33 | ADMNOTE ---
Identification - Identify Employment Status: Disabled Hx Psychiatric Hospitalization: Yes - Numerous Prior Psychiatric Diagnosis: Mild intellectual Disability; Borderline PD; Arrived to Hospital Via: EMS History - Objective HPI: Ms. Pérez is a 26-year-old, partnered, mentally disabled, domiciled, female who was seen in consultation in the intensive care unit after intentional overdose on her prescribed pills of olanzapine. She was deemed in need of inpatient psychiatric admission for safety and for further observation and she was transferred to the [facility] on emergency status. CHIEF COMPLAINT: "I had a fight with my mother on , I took a bunch of pills!" HISTORY OF PRESENT ILLNESS: Marly is well known to the adolescent inpatient psychiatric services, she has diagnoses of borderline personality disorder, intellectual disability, chronic self-injuring, suicidality, frequent ER visits , multiple psychiatric admissions, questionable compliance with outpatient psychiatric treatment. She relates that on , she argued with her mother and she impulsively took an overdose of about 15 pills of olanzapine, 5 mg. Her mother then asked her to call emergency services, which she did and she was bought in, was admitted to the intensive care unit for care. She denies that her taking the pill was with the intention of ending her life. She described it as an impulsive act because she was angry. She asserts that she was doing fairly well prior to the overdose and she requests to be discharged home as she feels she can be safe. REVIEW OF PSYCHIATRIC SYMPTOMS: She denies persistently depressed mood, symptoms of elizabeth or psychosis. She denies excessive anxiety, panic attacks, obsessive thoughts or compulsive rituals. She denies symptoms of eating disorder. PAST PSYCHIATRIC HISTORY: Extensive psychiatric history starting in her early teenage years. She has had numerous admissions here and in [facility]. Her last admission here was on 08/10/16. She relates that she came to the emergency room of this hospital on 08/27/16, was transferred to [facility] where she was discharged the same day. She had received ECT in the past. She has a history of poor adherence with outpatient psychiatric treatment. She has worked with the ACT team. Currently, her care is at [facility] with community mental health nurse, Hope Saucedo, and with psychiatrist, Dr. Jamie Newby. She relates that Dr. Newby was in the process of switching her from olanzapine to Invega that she had not yet started. PAST PSYCHIATRIC DIAGNOSES: Borderline personality disorder and mild intellectual disability and alcohol syndrome. PAST PSYCHIATRIC MEDICATIONS: The patient has in the past had trials of ziprasidone, quetiapine, Thorazine, mirtazapine, gabapentin, Campral, clonidine , lithium, Depakote, citalopram, naltrexone, and Topamax. She has a history of poor compliance with taking medication and had in the past been on AOT. SUICIDE/HOMICIDE HISTORY: She has a history of multiple previous suicide attempts and gestures and of violence and legal problems. SUBSTANCE ABUSE HISTORY: The patient denies recent use of alcohol, tobacco, or illicit drugs. She had in the past used cocaine, alcohol, and marijuana. FAMILY HISTORY: The patient has several half siblings with history of learning and conduct disorders. PERSONAL AND SOCIAL HISTORY: The patient was adopted, was raised with half siblings and adopted siblings, did not graduate from high school due to frequent hospitalizations. She has been in a long-term relationship with a female partner. She identified as lesbian. She currently, lives with her mother. Past Medical History: Remarkable for obesity, unspecified seizure disorder, urinary retention, and herpes zoster. Exam Appearance: Obese Hygiene: Normal Grooming: Well Kept Psychomotor Activities: Normal Exhibits Abnormal Movement: No Attitude and Relatedness: Superficially Cooperative Eye Contact: Fair - Speech Quality: Unpressured Latencies: Normal Quantity: Terse Patient's Decription of Mood: "Okay" Observed Affect: Non-labile Affect Consistent with: Dysphoria Patient's Thought Process: Coherent, Goal Directed Thought Content: No Passive Wish, No Suicidal Planning, No Homicidal Ideation, No Paranoid Ideation Experiencing Hallucinations: No, Sensorium is Clear Level of Consciousness: Alert Orientation: Yes Intact Impulse Control: Intact Insight and Judgement: Poor - chronically, but seeks help when in crisis Impression - Impression Clinical Impression: A 26-year-old female with history of suicide attempts, self-injury, substance abuse, multiple psychiatric hospitalizations, poor adherence to outpatient psychiatric treatment, who was seen in consultation in the intensive care unit after intentional overdose on her prescribed pills of olanzapine in the context of argument with relatives. She denies that her intent was to end her life and she contracts for safety. She denies recent substance use. Her medical history remarkable for seizure disorder, obesity, urinary retention. There is some family history of learning and conduct disorders in relatives. She describes stressors of periodically strained relationship with her mother and occupational and social support deficits and self-image issues. She merits inpatient level of care for safety, evaluation and treatment. Inpatient DSM-IV Dx: 1. Unspecified mood disorder. 2. Borderline personality disorder. 3. Mild intellectual disability. Merits Inpatient Hospitalization: Yes Plan - Treatment Plan Continued Medication Management: Consider Medication Medications: Current Medications Acetaminophen (Tylenol Tab*) 650 mg PO Q4H PRN PRN Reason: PAIN or TEMP > 101 F Al Hydrox/Mg Hydrox/Simethicone (Maalox Plus*) 30 ml PO Q4H PRN PRN Reason: INDIGESTION Device (Nicotine Mouth Piece*) 1 each INH .[facility] Last Admin: 09/03/16 09:44 Dose: 1 each Multivitamins (Theragran Tab*) 1 tab PO DAILY [facility] Last Admin: 09/03/16 09:41 Dose: Not Given Nicotine (Nicotine Inhaler*) 10 mg INH Q2H PRN PRN Reason: CRAVING Last Admin: 09/03/16 15:20 Dose: 10 mg Nicotine Polacrilex (Nicotine Gum*) 2 mg PO Q2H PRN PRN Reason: CRAVING Last Admin: 09/03/16 15:42 Dose: 2 mg - Discharge Plan Discharge Plan: Outpatient Follow Up Outpatient Program: [facility]
--- NOTE | 2016-09-03 20:23 | CONS ---
PSYCHIATRIC CONSULTATION/HISTORY AND PHYSICAL: DATE OF CONSULT: 09/03/16 DATE OF DICTATION: 09/03/16 IDENTIFYING DATA: Ms. Pérez is a 26-year-old, partnered, mentally disabled, domiciled, female who was seen in consultation in the intensive care unit after intentional overdose on her prescribed pills of olanzapine. She was deemed in need of inpatient psychiatric admission for safety and for further observation and she was transferred to the [facility] on emergency status. CHIEF COMPLAINT: "I had a fight with my mother on , I took a bunch of pills!" HISTORY OF PRESENT ILLNESS: Marly is well known to the adolescent inpatient psychiatric services, she has diagnoses of borderline personality disorder, intellectual disability, chronic self-injuring, suicidality, frequent ER visits , multiple psychiatric admissions, questionable compliance with outpatient psychiatric treatment. She relates that on , she argued with her mother and she impulsively took an overdose of about 15 pills of olanzapine, 5 mg. Her mother then asked her to call emergency services, which she did and she was bought in, was admitted to the intensive care unit for care. She denies that her taking the pill was with the intention of ending her life. She described it as an impulsive act because she was angry. She asserts that she was doing fairly well prior to the overdose and she requests to be discharged home as she feels she can be safe. REVIEW OF PSYCHIATRIC SYMPTOMS: She denies persistently depressed mood, symptoms of elizabeth or psychosis. She denies excessive anxiety, panic attacks, obsessive thoughts or compulsive rituals. She denies symptoms of eating disorder. PAST PSYCHIATRIC HISTORY: Extensive psychiatric history starting in her early teenage years. She has had numerous admissions here and in [facility]. Her last admission here was on 08/10/16. She relates that she came to the emergency room of this hospital on 08/27/16, was transferred to [facility] where she was discharged the same day. She had received ECT in the past. She has a history of poor adherence with outpatient psychiatric treatment. She has worked with the ACT team. Currently, her care is at [facility] with community mental health nurse, Hope Saucedo, and with psychiatrist, Dr. Jamie Newby. She relates that Dr. Newby was in the process of switching her from olanzapine to Invega that she had not yet started. PAST PSYCHIATRIC DIAGNOSES: Borderline personality disorder and mild intellectual disability and alcohol syndrome. PAST PSYCHIATRIC MEDICATIONS: The patient has in the past had trials of ziprasidone, quetiapine, Thorazine, mirtazapine, gabapentin, Campral, clonidine , lithium, Depakote, citalopram, naltrexone, and Topamax. She has a history of poor compliance with taking medication and had in the past been on AOT. SUICIDE/HOMICIDE HISTORY: She has a history of multiple previous suicide attempts and gestures and of violence and legal problems. SUBSTANCE ABUSE HISTORY: The patient denies recent use of alcohol, tobacco, or illicit drugs. She had in the past used cocaine, alcohol, and marijuana. PAST MEDICAL HISTORY: Remarkable for obesity, unspecified seizure disorder, urinary retention, and herpes zoster. FAMILY HISTORY: The patient has several half siblings with history of learning and conduct disorders. PERSONAL AND SOCIAL HISTORY: The patient was adopted, was raised with half siblings and adopted siblings, did not graduate from high school due to frequent hospitalizations. She has been in a long-term relationship with a female partner. She identified as lesbian. She currently, lives with her mother. REVIEW OF MEDICAL SYMPTOMS: Obesity. PHYSICAL EXAMINATION: The patient declined citing lack of need. It is appropriate to waive the physical examination given the patient was recently discharged from the intensive care unit. MENTAL STATUS EXAMINATION: Finds a moderately to morbidly obese 26-year-old white female with glasses, who looks her stated age. She has multiple tattoos some covering previous self-inflicted lacerations on both forearms. She makes fair eye contact. She is relatively well-related, cooperative. She exhibits normal psychomotor activity. No abnormal movements are observed. Her affect is irritable. Mood is dysphoric. She avidly denies suicide ideation or any urges to self-mutilate and she contracts for safety if discharged. There is no evidence of formal thought disorder and no overt delusions. She denies auditory or visual hallucinations. Her insight and judgment are limited. Impulse control is fair in this setting. She is alert. She is oriented to time , place, and person. Attention, memory and concentration are all fair. Fund of knowledge is known to be in the mildly intellectually disabled range. SUMMARY: A 26-year-old female with history of suicide attempts, self-injury, substance abuse, multiple psychiatric hospitalizations, poor adherence to outpatient psychiatric treatment, who was seen in consultation in the intensive care unit after intentional overdose on her prescribed pills of olanzapine in the context of argument with relatives. She denies that her intent was to end her life and she contracts for safety. She denies recent substance use. Her medical history remarkable for seizure disorder, obesity, urinary retention. There is some family history of learning and conduct disorders in relatives. She describes stressors of periodically strained relationship with her mother and occupational and social support deficits and self-image issues. DIAGNOSTIC IMPRESSIONS: 1. Unspecified mood disorder. 2. Borderline personality disorder. 3. Mild intellectual disability. TREATMENT AND PLAN: Admit to mental health unit, 15-minute checks, full code status, legal status is emergency. Initiate comprehensive milieu, individual, and group psychotherapeutic supports. Medication management will involve consulting Dr. Newby tomorrow to confirm that he had discussed the trial of Invega with the patient. In the meantime, we will continue observing her off medication. Discharge planning will of course involve coordination for aftercare with [facility]. [id number]/[facility] #: [id number] NEIL
[2016-09-04] MEDS: Nicotine GUM* 2 MG PO PRN ×2 (08:07→10:45)
[2016-09-04] MEDS: Vitamin THERAPEUTIC TAB PO SCH (08:15)
[2016-09-04] MEDS: Nicotine Inhaler* 10 MG AMP INH PRN (09:16)
--- NOTE | 2016-09-04 10:58 | DS ---
Subjective - Subjective Service Types: [id number] [facility] Day Mgmt complex over 30 min Discharge Date: 09/04/16 Subjective: Marly continues to report that her overdose was not a suicide attempt, only an impulsive angry act. She denies any intent or plan to harm herself or others. She is bright and future-oriented, stating cheerfully that she is looking forward to going home. She has no active complaints, either medically or psychiatrically. She does request that sabra be removed from the arm that she cut prior to her last admission to this unit. Objective - Appearance Appearance: Obese Dysmorphic Features: No Hygiene: Normal Grooming: Fairly Well Kept - Behavior Psychomotor Activities: Normal Exhibits Abnormal Movement: No - Attitude and Relatedness Attitude and Relatedness: Cooperative Eye Contact: Good - Speech Quality: Unpressured Latencies: Normal Quantity: Appropriate - Mood Patient's Decription of Mood: "Okay" - Affect Observed Affect: Good Affect Consistent with: Euthymia - Thought Process Patient's Thought Process: Coherent, Goal Directed Thought Content: No Passive Wish, No Suicidal Planning, No Homicidal Ideation, No Paranoid Ideation - Sensorium Experiencing Hallucinations: No, Sensorium is Clear Type of Hallucinations: Visual: No, Auditory: No, Command: No - Level of Consciousness Level of Consciousness: Alert Orientation: Yes Intact, Yes Orientated to Time, Yes Orientated to Place, Yes Orientated to Person - Impulse Control Impulse Control: Intact - Insight and Judgement Insight and Judgement: Poor - , chronically so - Group Participation Particating in Group Activities: Yes - Medication Management Medication Management Adherence: Yes Treatment Course & Assessment Clinical Course & Impression: Marly is a 26 year-old woman with many psychiatric hospitalizations for suicide attempts and self-injury in the context of poor adherence with outpatient care for borderline personality disorder. For full details of circumstances leading to this admission, please refer to the consultation/ admission note dated 09/03/[address] Mesa. Multiple effortful attempts have been made to place her into settings that might allow her to further stabilize in a longer term care setting, but she has either sabotaged those arrangements as in the case of a foster family that she quickly left, or past severe countertherapeutic responses have informed decisions not to admit her to the [facility] for example. She presents today, as she has throughout this admission, with as bright an affect as I have ever seen from her, and with voiced commitment to aftercare and safety plans in the community. She is therefore cleared for discharge, assessed as at no acutely increased risk of harm to self or others and as capable of adequate self -care in to avoid harm. She nevertheless remains at chronic increased risk of yet another episode of suicidal gesture or self injury. She might accidentally complete a suicide in the course of yet another suicidal gesture, although her extensive history empirically demonstrates that the risk for this is low. We have spoken with her outpatient providers at [facility]. Both Hope Khan and Dr Newby report they are prepared to resume care of this challenging patient. Her mother has also stated that she feels her daughter is safe for discharge today, and she is welcomed home. I have confirmed with her pharmacy that she was prescribed Invega 6 mg daily, hydroxyzine 50 mg po qid prn anxiety, pantoprazole 40 mg daily, and trazodone 100 mg qHS prn insomnia, and these medications are waiting to be picked up. I reviewed with Dr Newby the change to Invega, and he agreed with this medication change. It is not likely, however, that any medication change will make much difference in the clinical course of this patient who has been tried on numerous medication regimens without significant change in impulsive acts of self-injury and suicidal gestures. It remains an ongoing challenge to engage her in effective psychotherapy given her overall poor compliance with care, but this might be where the greatest gains could be made if she were to at some point commit to a psychotherapy laying emphasis on DBT skills and other focused treatment for Borderline Personality Disorder. Per report from naval [employer] fire support planner, therapist, rn case manager, rep payee, and mother have all been contacted in coordinating this discharge. None have advocated for continued admission. Merits Inpatient Hospitalization: No Clear for Discharge: Adequate Clinical Respons, Acceptable Safety Profile, Low Utility of Inpt Care Inpatient DSM-IV Dx: Borderline Personality Disorder. Mild Intellectual Disability. Unspecified depressive disorder - [place] II MR and Personality Disorder: Borderline Personality Disorder - [place] III Medical Illness: obesity, history of seizure disorder, urinary retention, herpes zoster - [place] IV Stressors: conflicts ongoing with mother, girlfriend Family: mother involved Primary Support Group: mother, girlfriend - [place] V EJY-Sgloce-Lsvaj: 63 Estimate of Highest-Past Year: 63 Discharge Planning - Discharge Planning Discharge Plan: Outpatient Follow Up Outpatient Program: [facility] Recommendations for Continuing Care: Medication Management, Psychotherapy Medications: Available on discharge prescriptions from hospitalization x 1 day in [place]: Invega 6 mg daily Pantoprazole 40 mg daily hydroxyzine 50 mg po qid prn anxiety trazodone 100 mg po qHS prn insomnia Marly asked for benztropine against possible dystonia from Invega, so I sent in a script for Cogentin 0.5 mg po prn dystonia, may repeat x 1, max daily dose 1 mg, call [facility] if dystonia occurs on Invega. I limited amount of med available due to concerns about past urinary retention and possible role of Cogentin in that, and low likelihood of dystonia Discharge Planning: Prescriptions provided for discharge [x] Yes, but only Cogentin , as she reports good supply from [facility] of other meds waiting at her pharmacy , confirmed by me by call to [facility]. [] No Follow up care details as per social work arrangements. Patient response to discharge plan: [x] eager for discharge [x] agreeable with discharge plan [] ambivalent about discharge [] disagrees with discharge today
== END 2016-09-04 12:25 | disposition home or self-care (01) | DRG 752 ==
LOC: BSU 20:00
PROVIDERS: ADMIT Psychiatry & Neurology Psychiatry; ATTEND Psychiatry & Neurology Psychiatry
DX: F60.3 Borderline personality disorder (principal); Z68.41 Body mass index [BMI] 40.0-44.9, adult; G40.909 Epilepsy, unspecified, not intractable, without status epilepticus; B02.9 Zoster without complications; F70 Mild intellectual disabilities; R33.9 Retention of urine, unspecified; F39 Unspecified mood [affective] disorder; E66.9 Obesity, unspecified; Q86.0 Fetal alcohol syndrome (dysmorphic)
CPT/HCPCS: 99222; 99238; A9270-GY

== ENCOUNTER 2016-09-13 09:20 | Inpatient (IN) | payer OTHER ==
[2016-09-13] MEDS ORDERED: LORazepam TAB(*) 1 MG PO ONE ×2 (09:41→16:34)
--- NOTE | 2016-09-13 09:48 | ED ---
Psychiatric Complaint - HPI Summary HPI Summary: Patient presents with complaints of SI and depression. She is not taking any daily medications because "they make her gain weight". She used a razor blade to cut her left upper arm. There are three lacerations with several other superficial lacerations as well. - History Of Current Complaint Time Seen by Provider: 09/13/16 09:28 Hx Obtained From: Patient Hx Last Menstrual Period: MIRENA IUD ?: No Onset/Duration: Gradual Onset Timing: Constant Severity Initially: Severe Severity Currently: Severe Character: Depressed Aggravating Factor(s): Medication Non-compliance Alleviating Factor(s): Nothing Associated Signs And Symptoms: Positive: Social Withdrawal Related History: Positive For: Prior Psychiatric Issues Has Suicidal: Reports: Thoughts - Allergies/Home Medications Allergies/Adverse Reactions: Allergies Allergy/AdvReac Type Severity Reaction Status Date / Time Penicillin V Allergy Severe Hives Verified 09/13/16 17:17 Latex Allergy Intermediate Rash Verified 09/13/16 17:17 Lactose Intolerance (GI) Allergy Diarrhea Verified 09/13/16 17:17 glue Allergy Rash Uncoded 09/13/16 17:17 steri strips Allergy Rash Uncoded 09/13/16 17:17 Home Medications: Home Medications Nicotine GUM* 2 mg PO Q2H PRN 09/13/16 [History Confirmed 09/13/16] fluPHENAZine HCL TAB* [Prolixin TAB*] 5 mg PO DAILY 09/13/16 [History Confirmed 09/13/16] PMH/Surg Hx/FS Hx/Imm Hx Endocrine/Hematology History: Denies: Hx Anticoagulant Therapy, Hx Diabetes - Borderline, Hx Thyroid Disease, Hx Unexplained Bleeding, Other Endocrine/Hematological Disorders Cardiovascular History: Denies: Hx Hypertension, Hx Pacemaker/ICD, Other Cardiovascular Problems/ Disorders Respiratory History: Reports: Hx Asthma Denies: Hx Chronic Obstructive Pulmonary Disease (COPD), Other Respiratory Problems/Disorders GI History: Denies: Hx Ulcer, Other GI Disorders History: Reports: Other Problems/Disorders - Urinary Retention and Herpes Denies: Hx Renal Disease Musculoskeletal History: Denies: Other Musculoskeletal History Sensory History: Reports: Hx Contacts or Glasses Denies: Hx Hearing Problem, Other Sensory Impairments Opthamlomology History: Reports: Hx Contacts or Glasses Denies: Other Sensory Impairments Neurological History: 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 Denies: Hx Dementia, Hx Developmental Delay, Other Neuro Impairments/ Disorders Psychiatric History: Reports: Hx Anxiety, Hx Depression, Hx Panic Disorder, Hx Post Traumatic Stress Disorder, Hx Inpatient Treatment, Hx Community Mental Health Tx, Hx Schizophrenia - Schizoaffective Disorder, Hx Bipolar Disorder, Hx Suicide Attempt, Hx of Violent Episodes Against Others - SEE VIOLENCE HX, Hx Substance Abuse, Other Psychiatric Issues/Disorders - COGNITIVELY LIMITED, BORDERLINE PERS D/O Denies: Hx Eating Disorder - Cancer History Hx Chemotherapy: No Hx Radiation Therapy: No Hx Palliative Cancer Treatment: No - Immunization History Date of Tetanus Vaccine: UTD Date of Influenza Vaccine: Unk Infectious Disease History: Reports: Hx Hepatitis, 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 - Social History Occupation: Employed Full-time Lives: Alone Alcohol Use: None Alcohol Amount: "drank beer awhile ago" Hx Substance Use: No Substance Use Type: Reports: None Substance Use Comment - Amount & Last Used: Xanax and Ambien Hx Tobacco Use: Yes Smoking Status (MU): Light Every Day Tobacco Smoker Type: Cigarettes Amount Used/How Often: 1/2 PPD Length of Time of Smoking/Using Tobacco: 3 years Have You Smoked in the Last Year: Yes Review of Systems Positive: Other - 3 lacerations to left lateral upper arm , with multiple superficial lacerations Negative: Weakness, Paresthesia Positive: Depressed All Other Systems Reviewed And Are Negative: Yes Physical Exam Triage Information Reviewed: Yes Vital Signs Reviewed: Yes Appearance: Positive: Well-Appearing, No Pain Distress, Obese Skin: Positive: Warm, Skin Color Reflects Adequate Perfusion, Dry, Tender - left lateral upper arm with a 4, 2.5, and 2cm long lacerations with multiple superficial lacerations, Soft Head/Face: Positive: Normal Head/Face Inspection Eyes: Positive: EOMI, OKSANA, Conjunctiva Clear ENT: Positive: Hearing grossly normal Respiratory/Lung Sounds: Positive: Clear to Auscultation, Breath Sounds Present Cardiovascular: Positive: RRR Abdomen Description: Positive: Nontender, Soft Bowel Sounds: Positive: Present Musculoskeletal: Positive: Strength/ROM Intact. Negative: Edema Left Neurological: Positive: Sensory/Motor Intact, Alert, Oriented to Person Place, Time, NV Bundle Intact Distally Psychiatric: Positive: Affect/Mood Appropriate AVPU Assessment: Alert Procedures - Laceration/Wound Repair 1 Location: upper extremity - left lateral upper arm Description: Linear Anesthesia: Local, 2.0%, Lido, Epi Length, Depth and Shape: 4.5 cm long, .5 cm wide, 2 mm deep Betadine Prep?: No Irrigated w/ Saline (ccs): 500 Laceration/Wound Explored: clean Closure: Single Layer Debridement: minimal Suture Type: Nylon - 5.0 Number of Sutures: 12 Layer Closure?: No Sterile Dressing Applied?: Yes 2 Location: upper extremity - left lateral upper arm Description: Linear Anesthesia: Local, 2.0%, Lido, Marcaine Length, Depth and Shape: 2.5 cm long, 3 mm wide, 2mm deep Betadine Prep?: No Irrigated w/ Saline (ccs): 200 Laceration/Wound Explored: clean Closure: Single Layer Debridement: minimal Suture Type: Nylon - 5.0 Number of Sutures: 7 Layer Closure?: No Sterile Dressing Applied?: Yes 3 Location: upper extremity - left lateral upper arm Description: Linear Anesthesia: Local, 2.0%, Lido, Epi Length, Depth and Shape: 2 cm long, 3mm wide, 2mm deep Betadine Prep?: No Irrigated w/ Saline (ccs): 200 Laceration/Wound Explored: clean Closure: Single Layer Debridement: minimal Suture Type: Nylon - 5.0 Number of Sutures: 6 Layer Closure?: No Sterile Dressing Applied?: Yes Diagnostics - Laboratory Result Diagrams: 09/13/16 09:47 09/13/16 09:47 Lab Statement: Any lab studies that have been ordered have been reviewed, and results considered in the medical decision making process. Course/Dx - Differential Dx/Clinical Impression Differential Diagnosis/HQI/PQRI: Positive: Acute Psychosis, Anxiety, Bipolar Disorder, Depression, Schizophrenia, Suicidal Ideation Provider Diagnosis: Persistent mood [affective] disorder, unspecified, Lacerations of multiple sites of left arm - Physician Notifications Patient Is Medically Stable For: Psych Evaluation Discharge - Discharge Plan Condition: Stable Disposition: HOME
[2016-09-13 09:57] LABS: Hematocrit 41 % (35-47); Hemoglobin 13.6 g/dl (12.0-16.0); Mean Corpuscular HGB Conc 33 g/dl (31-36); Mean Corpuscular Hemoglobin 29 pg (27-31); Mean Corpuscular Volume 87 fL (80-97); Mean Platelet Volume 9 um3 (7.4-10.4); Red Blood Count 4.72 10^6/ul (4.0-5.4); Red Cell Distribution Width 14 % (10.5-15)
[2016-09-13 10:13] LABS: ALT 21 U/L (7-52); AST 14 U/L (13-39); Albumin 4.3 g/dL (3.2-5.2); Alkaline Phosphatase 63 U/L (34-104); Anion Gap 7 mmol/L (2-11); Blood Urea Nitrogen 12 mg/dL (6-24); CO2 Carbon Dioxide 23 mmol/L (22-32); Calcium 9.4 mg/dL (8.6-10.3); Chloride 105 mmol/L (101-111); EGFR African American 118.3 (>60); Globulin 3.3 g/dL (2-4); Glucose 107 mg/dL (70-100); Potassium 3.8 mmol/L (3.5-5.0); Sodium 135 mmol/L (133-145); Total Protein 7.6 g/dL (6.4-8.9)
[2016-09-13 10:29] LABS: Acetaminophen < 15 mcg/mL; Alcohol < 10 mg/dL (<10); Salicylate < 2.50 mg/dL (<30)
[2016-09-13 10:38] LABS: TSH (Thyroid Stimulating Horm) 0.94 mcIU/mL (0.34-5.60)
[2016-09-13] MEDS: Nicotine GUM* 2 MG PO PRN ×4 (11:18→16:48)
[2016-09-13 11:19] LABS: Urine Bacteria 1+ (Absent); Urine Bilirubin Negative (Negative); Urine Glucose Negative (Negative); Urine Nitrite Negative (Negative)
[2016-09-13 11:29] LABS: Benzodiazepine Urine Screen None Detected (None Detect)
[2016-09-13] MEDS ORDERED: Nicotine GUM* 2 MG PO PRN (12:36)
[2016-09-13] MEDS ORDERED: LORazepam TAB(*) 1 MG ONE ×2 (17:59→18:00)
[2016-09-13] MEDS ORDERED: diPHENhydraMINE PO* 25 MG ONE (17:59)
[2016-09-13] MEDS ORDERED: Haloperidol TAB* 5 MG ONE (17:59)
[2016-09-14] MEDS: Nicotine GUM* 2 MG PO PRN ×7 (02:22→20:17)
[2016-09-14] MEDS ORDERED: diPHENhydraMINE PO* 50 MG ONE (06:22)
[2016-09-14] MEDS ORDERED: LORazepam TAB(*) 1 MG ONE (06:22)
[2016-09-14] MEDS ORDERED: Haloperidol TAB* 5 MG ONE (06:22)
[2016-09-14] MEDS ORDERED: Nicotine GUM* 2 MG PO PRN (08:42)
[2016-09-14] MEDS: Benztropine TAB* 1 MG PO SCH (09:28)
[2016-09-14] MEDS: fluPHENAZine HCL TAB* 5 MG PO SCH (09:28)
[2016-09-14] MEDS: Omeprazole CAP* 20 MG PO SCH (09:32)
[2016-09-14] MEDS: Paliperidone TAB* 6 MG PO SCH (09:32)
[2016-09-14] MEDS ORDERED: Nicotine Inhaler* 10 MG AMP INH PRN (10:22)
--- NOTE | 2016-09-14 10:41 | HP ---
PSYCHIATRIC ADMISSION HISTORY AND PHYSICAL: DATE OF ADMISSION: 09/13/16 IDENTIFYING DATA: Marly Pérez is a 26-year-old mentally disabled, domiciled, female with a history of numerous psychiatric hospitalizations, severe borderline personality disorder, borderline intellectual functioning, chronic significant self- harm behaviors, and parasuicidal and suicidal behavior along with dissociative symptoms and atypical psychotic symptoms. She is admitted to the psychiatric unit about 1 week after her last psychiatric discharge having presented in the emergency room by ambulance with chief complaint "I am just depressed and suicidal, voices have been in my head, that is pretty much it." HISTORY OF PRESENT ILLNESS: This is an update to the history and physical entered by Dr. Leo Mesa on September 03. Marly reports having a "pretty good" week up until a couple of days ago. She said she has been depressed in that she thinks of suicide on and off. The immediate crisis is that she was cutting herself in the house and her mother 's other children were in the house. This upset her mother and her mother is apparently telling her that she cannot come back and needs to go to the [facility] Marly reports "I don't know" as to her current mood state. She reports decent sleep. She reported experience of "hearing voices" which were not active right now. She made no delusional comments and she denied ideas of hurting other people. She reported generally elevated levels of anxiety. She denied new health problems in this interval. She denied the use of illicit substances but reported intermittent use of alcohol. She also reported inconsistent adherence with her medication regimen. CURRENT OUTPATIENT MEDICATION REGIMEN: 1. Cogentin 0.5 mg a day. 2. Nicotine gum 2 mg q.2 hours p.r.n. craving. 3. Iloperidone 6 mg a day. 4. Pantoprazole 40 mg per day. 5. Fluphenazine 5 mg per day. Concurrent use of two standing antipsychotics justified on the basis of many failed monotherapy trials. UPDATED PHYSICAL ASSESSMENT: VITAL SIGNS: Temperature is 98.4, pulse is 108, respiratory rate of 16. PHYSICAL EXAMINATION: Marly declined a physical examination and an updated physical exam is not acutely indicated. She is medically stable for hospitalization. MENTAL STATUS EXAMINATION: Obese, late 20s, female who is fairly well- kempt and in hospital scrub clothing. She has innumerable scars over her arms. Her hygiene is good. She has normal psychomotor activity but is a little sleepy, maintains decent eye contact. Speech is terse and nonspontaneous. Mood is described as "down." Affect is somewhat constricted and dysphoric. Thought process is coherent but impoverished. Thought content: Significant for ambivalence about being alive. There is no active suicidal ideation. There is no paranoid or homicidal ideation. Sensorium is currently clear. Insight and judgment are poor and impulse control is poor. LABORATORY DATA: On admission, CBC was normal. Comprehensive panel had glucose of 107. TSH was normal. Urinalysis had 2+ blood, 3+ leukocyte esterase , 3+ white blood cells, 2+ red blood cells, present squamous epithelial cells, 1 + urine bacteria. Toxicology screen was negative for Tylenol, alcohol, or salicylates. CLINICAL SUMMARY: A 26-year-old female with a history of numerous suicide attempts, chronic self-injury, severe borderline personality disorder, borderline intellectual functioning, presents typically with episode of self- harm behaviors and increase in endorsement of all symptoms including atypical perceptual disturbances, "hearing voices." Subacutely, she has had multiple hospitalizations. DIAGNOSES: Depressive disorder, posttraumatic stress disorder, dissociative disorder, borderline personality disorder, borderline intellectual functioning. TREATMENT PLAN: Admit to the psychiatry unit. Code status is full. Safety checks every 15-minute intervals. Implement behavior modification plan. Initiate comprehensive, group, milieu, and individual psychotherapeutic support with criteria around group participation. Continue with the outpatient medicine regimen. Discharge planning will involve coordination with appropriate aftercare. Target symptoms are recent suicidal ideations, self-harm behavior, elevated stress, impaired coping, perceptual disturbances. The patient's strengths are her positive help-seeking behavior and adequate baseline physical health. [id number]/[facility] #: [id number] MTDD
[2016-09-14] MEDS ORDERED: Mouth Piece, Nicotine* 1 EACH CARTRIDGE ONE (10:59)
[2016-09-14] MEDS ORDERED: chlorproMAZINE TAB* 100 MG ONE (14:32)
[2016-09-14] MEDS: Nicotine Inhaler* 10 MG AMP INH PRN (14:55)
[2016-09-14] MEDS ORDERED: chlorproMAZINE TAB* 100 MG PO PRN (18:15)
[2016-09-15] MEDS: Nicotine GUM* 2 MG PO PRN ×6 (05:57→22:29)
[2016-09-15] MEDS ORDERED: LORazepam TAB(*) 1 MG ONE (06:31)
[2016-09-15] MEDS ORDERED: diPHENhydraMINE PO* 50 MG ONE (06:32)
[2016-09-15] MEDS ORDERED: Haloperidol TAB* 5 MG ONE (06:32)
[2016-09-15] MEDS ORDERED: Mouth Piece, Nicotine* 1 EACH CARTRIDGE ONE ×2 (06:46→23:05)
[2016-09-15] MEDS: Nicotine Inhaler* 10 MG AMP INH PRN ×4 (06:49→23:07)
[2016-09-15] MEDS: Benztropine TAB* 1 MG PO SCH (09:20)
[2016-09-15] MEDS: Paliperidone TAB* 6 MG PO SCH (09:20)
[2016-09-15] MEDS: fluPHENAZine HCL TAB* 5 MG PO SCH (09:20)
[2016-09-15] MEDS: Omeprazole CAP* 20 MG PO SCH (09:20)
--- NOTE | 2016-09-15 12:33 | PN ---
Subjective - Subjective Service Type: 06097 Hosp care 15 min low complexity Subjective: Marly reports "doing okay....waiting" Still feels she needs placement somewhere. Notes "A little" voices, and affirms she is controlling urges to harm self. She asks for Haldol as PRN, saying thorazine is too sedating. She opted to restart Flomax for urinary retention. Objective - Appearance Appearance: Obese Hygiene: Normal Grooming: Fairly Well Kept - Behavior Psychomotor Activities: Normal - Attitude and Relatedness Attitude and Relatedness: Child Like Eye Contact: Good - Speech Quality: Unpressured Latencies: Normal Quantity: Terse - Mood Patient's Decription of Mood: "Okay" - Affect Observed Affect: Non-labile Affect Consistent with: Euthymia - Thought Process Patient's Thought Process: Coherent, Goal Directed, Impoverished Thought Content: No Passive Wish, No Suicidal Planning, No Homicidal Ideation, No Paranoid Ideation - Sensorium Experiencing Hallucinations: No, Sensorium is Clear - Level of Consciousness Level of Consciousness: Alert - Impulse Control Impulse Control: Poor - Insight and Judgement Insight and Judgement: Poor Assessment - Assessment Merits Inpatient Hospitalization: For Immediate Safety, For Stabilization, To Initiate Treatment, For Ongoing Evaluation Inpatient DSM-IV Dx: Depressive disorder, posttraumatic stress disorder, dissociative disorder, borderline personality disorder, borderline intellectual functioning. Clinical Impression: 26-year-old female with a history of numerous suicide attempts, chronic self- injury, severe borderline personality disorder, borderline intellectual functioning, presents typically with episode of self-harm behaviors and increase in endorsement of all symptoms including atypical perceptual disturbances, "hearing voices." Subacutely, she has had multiple hospitalizations. Continues in an up and down course with agitation at times, threats to kill staff yesterday. We implement behavior modification plan. Goal should be to stabilize pt. and aim for briefest admission possible. Medmgt. continues outpatient regimen, restarts Flomax. Will offer Haldol prn at Marly's preference. Plan - Plan Treatment Plan: Name: MARLY WILKINSON Birthdate: 1990 [id number] Continued Medication Management: Continue Outpt Medication Medications: Current Medications Benztropine Mesylate (Cogentin Tab*) 0.5 mg PO DAILY [facility] Last Admin: 09/15/16 09:20 Dose: 0.5 mg Chlorpromazine HCl (Thorazine Tab*) 200 mg PO Q8H PRN PRN Reason: AGITATION Fluphenazine HCl (Prolixin Tab*) 5 mg PO DAILY [facility] Last Admin: 09/15/16 09:20 Dose: 5 mg Nicotine (Nicotine Inhaler*) 10 mg INH Q2H PRN PRN Reason: CRAVING Last Admin: 09/15/16 10:29 Dose: 10 mg Nicotine Polacrilex (Nicotine Gum*) 2 mg PO Q2H PRN PRN Reason: CRAVING Last Admin: 09/15/16 09:19 Dose: 2 mg Omeprazole (Prilosec Cap*) 20 mg PO DAILY@0730 [facility] Last Admin: 09/15/16 09:20 Dose: 20 mg Paliperidone (Invega Tab*) 6 mg PO DAILY [facility] Last Admin: 09/15/16 09:20 Dose: Not Given Tamsulosin HCl (Flomax Cap*) 0.4 mg PO DAILY [facility] - Discharge Plan Discharge Plan: Outpatient Follow Up
[2016-09-15] MEDS: Tamsulosin CAP* 0.4 MG PO SCH (13:48)
[2016-09-15] MEDS ORDERED: Haloperidol TAB* 2 MG ONE (13:51)
[2016-09-15] MEDS: Haloperidol TAB* 2 MG PO PRN ×3 (13:54→22:29)
[2016-09-16] MEDS: Nicotine GUM* 2 MG PO PRN ×7 (06:08→18:41)
[2016-09-16] MEDS: Haloperidol TAB* 2 MG PO PRN (07:40)
[2016-09-16] MEDS: Omeprazole CAP* 20 MG PO SCH (07:45)
[2016-09-16] MEDS: Benztropine TAB* 1 MG PO SCH (08:36)
[2016-09-16] MEDS: fluPHENAZine HCL TAB* 5 MG PO SCH (08:36)
[2016-09-16] MEDS: Tamsulosin CAP* 0.4 MG PO SCH (08:36)
[2016-09-16] MEDS: Paliperidone TAB* 6 MG PO SCH (08:39)
[2016-09-16] MEDS ORDERED: LORazepam TAB(*) 1 MG ONE (08:53)
[2016-09-16] MEDS ORDERED: diPHENhydraMINE PO* 50 MG ONE (08:53)
[2016-09-16] MEDS ORDERED: Haloperidol TAB* 5 MG ONE (08:53)
[2016-09-16] MEDS: Nicotine Inhaler* 10 MG AMP INH PRN (09:28)
[2016-09-16] MEDS ORDERED: Acetaminophen TAB* 325 MG PO PRN (17:37)
[2016-09-16] MEDS ORDERED: Haloperidol TAB* 5 MG PO ONE (18:00)
[2016-09-16] MEDS ORDERED: diPHENhydraMINE PO* 50 MG PO ONE (18:00)
[2016-09-16] MEDS ORDERED: LORazepam TAB(*) 1 MG PO ONE (18:00)
[2016-09-17] MEDS: Benztropine TAB* 1 MG PO SCH (07:47)
[2016-09-17] MEDS: fluPHENAZine HCL TAB* 5 MG PO SCH (07:47)
[2016-09-17] MEDS: Tamsulosin CAP* 0.4 MG PO SCH (07:47)
[2016-09-17] MEDS: Nicotine GUM* 2 MG PO PRN ×6 (07:47→19:30)
[2016-09-17] MEDS: Omeprazole CAP* 20 MG PO SCH (07:49)
[2016-09-17] MEDS: Paliperidone TAB* 6 MG PO SCH (07:49)
--- NOTE | 2016-09-17 09:36 | PN ---
Subjective - Subjective Service Type: 87722 Hosp care 15 min low complexity Subjective: The patient has been anxious, uncooperative at times, and attention seeking on the unit so far this weekend. She has received no fewer than 3 prn administrations of oral combination haldol/ativan/Benadryl due to her agitation and threats to act out. Staff has reimplemented her behavioral modification plan, which the patient is only partially adhering to, as she is observed in street clothes instead of the mandated paper scrubs of the hospital. On exam she rationalizes her behavior telling me that we should have transferred her to [facility] out of the ER. She threatens to end her life if discharged home. Objective - Appearance Appearance: Obese Dysmorphic Features: No Hygiene: Normal Grooming: Fairly Well Kept - Behavior Psychomotor Activities: Abnormal-Increased Exhibits Abnormal Movement: No - Attitude and Relatedness Attitude and Relatedness: Child Like Eye Contact: Poor - Speech Quality: Unpressured Latencies: Normal Quantity: Copious - Mood Patient's Decription of Mood: "Anxious" - Affect Observed Affect: Labile Affect Consistent with: Dysphoria - Thought Process Patient's Thought Process: Coherent Thought Content: Yes Passive Wish, No Suicidal Planning, No Homicidal Ideation, No Paranoid Ideation - Sensorium Experiencing Hallucinations: Yes Type of Hallucinations: Visual: No, Auditory: Yes, Command: No - Level of Consciousness Level of Consciousness: Agitated Orientation: Yes Intact, Yes Orientated to Time, Yes Orientated to Place, Yes Orientated to Person - Impulse Control Impulse Control: Poor - Insight and Judgement Insight and Judgement: Impaired - Group Participation Particating in Group Activities: No - Medication Management Medication Management Adherence: Partial Assessment - Assessment Merits Inpatient Hospitalization: For Immediate Safety, For Stabilization Inpatient DSM-IV Dx: Depressive disorder, posttraumatic stress disorder, dissociative disorder, borderline personality disorder, borderline intellectual functioning. Clinical Impression: 26 y.o. single, white, homosexual female with a history of psychotic, affective and personality disorders admitted to the hospital following a suicidal gesture in which she cut her upper arm. Plan - Plan Treatment Plan: Name: FILOMENA WILKINSON Birthdate: 1990 [id number] The patient is acting out and her behavioral modification plan has been reactivated. Will follow current treatment plan to see if she improves enough to discharge her safely to the community, although she continues to request referral to the [facility]. Continued Medication Management: Continue Outpt Medication Medications: Current Medications Acetaminophen (Tylenol Tab*) 650 mg PO Q6H PRN PRN Reason: PAIN/FEVER Benztropine Mesylate (Cogentin Tab*) 1 mg PO DAILY [facility] Last Admin: 09/17/16 07:47 Dose: 1 mg Fluphenazine HCl (Prolixin Tab*) 5 mg PO DAILY [facility] Last Admin: 09/17/16 07:47 Dose: 5 mg Haloperidol (Haldol Tab*) 2 mg PO Q3H PRN PRN Reason: AGITATION Last Admin: 09/16/16 07:40 Dose: 2 mg Nicotine (Nicotine Inhaler*) 10 mg INH Q2H PRN PRN Reason: CRAVING Last Admin: 09/16/16 09:28 Dose: 10 mg Nicotine Polacrilex (Nicotine Gum*) 2 mg PO Q2H PRN PRN Reason: CRAVING Last Admin: 09/17/16 07:47 Dose: 2 mg Omeprazole (Prilosec Cap*) 20 mg PO DAILY@0730 [facility] Last Admin: 09/17/16 07:49 Dose: Not Given Paliperidone (Invega Tab*) 6 mg PO DAILY [facility] Last Admin: 09/17/16 07:49 Dose: Not Given Tamsulosin HCl (Flomax Cap*) 0.4 mg PO DAILY [facility] Last Admin: 09/17/16 07:47 Dose: 0.4 mg - Discharge Plan Discharge Plan: Inpatient Hospitalization
[2016-09-17] MEDS: Haloperidol TAB* 2 MG PO PRN (11:27)
[2016-09-17] MEDS ORDERED: Loperamide CAP* 2 MG PO PRN ×2 (19:15)
[2016-09-17] MEDS ORDERED: LORazepam TAB(*) 1 MG PO PRN (19:16)
[2016-09-17] MEDS ORDERED: Haloperidol TAB* 5 MG PO PRN (19:17)
[2016-09-17] MEDS ORDERED: diPHENhydraMINE PO* 50 MG PO PRN (19:17)
[2016-09-18] MEDS: Haloperidol TAB* 2 MG PO PRN (06:45)
[2016-09-18] MEDS: Nicotine GUM* 2 MG PO PRN ×2 (06:46→10:14)
[2016-09-18] MEDS: Nicotine Inhaler* 10 MG AMP INH PRN (07:10)
[2016-09-18 07:39] VITALS: BP 133/81
[2016-09-18] MEDS: Omeprazole CAP* 20 MG PO SCH (07:56)
[2016-09-18] MEDS: fluPHENAZine HCL TAB* 5 MG PO SCH (07:57)
[2016-09-18] MEDS: Paliperidone TAB* 6 MG PO SCH (07:57)
[2016-09-18] MEDS: Tamsulosin CAP* 0.4 MG PO SCH (07:57)
[2016-09-18] MEDS: Benztropine TAB* 1 MG PO SCH (07:58)
--- NOTE | 2016-09-18 08:27 | DS ---
Subjective - Subjective Service Types: [id number] [facility] Day Mgmt simple under 30 min Discharge Date: 09/18/16 Subjective: Marly reported doing "fine," and said she feels ready to go home. She said he had a talk with her mom this a.m., and that mom is supportive of her staying at home. We discussed followup - she intends to stay at the clinic; and reviewed medication planning - she says Invega makes her hungry but that she wants a prescription for it, as well as for Trazodone, I agreed. She affirmed she feels safe, free of suicidal ideation, urges for self / other harm, or perceptual disturbances. Objective - Appearance Appearance: Obese Hygiene: Normal Grooming: Fairly Well Kept - Behavior Psychomotor Activities: Normal - Attitude and Relatedness Attitude and Relatedness: Superficially Cooperative Eye Contact: Good - Speech Quality: Unpressured Latencies: Normal Quantity: Terse - Mood Patient's Decription of Mood: "Good" - Affect Observed Affect: Tense Affect Consistent with: Euthymia - Thought Process Patient's Thought Process: Coherent, Goal Directed Thought Content: No Passive Wish, No Suicidal Planning, No Homicidal Ideation, No Paranoid Ideation - Sensorium Experiencing Hallucinations: No, Sensorium is Clear - Level of Consciousness Level of Consciousness: Alert - Impulse Control Impulse Control: Poor - Insight and Judgement Insight and Judgement: Poor Treatment Course & Assessment Clinical Course & Impression: 26-year-old female with a history of numerous suicide attempts, chronic self- injury, severe borderline personality disorder, borderline intellectual functioning, presents typically with episode of self-harm behaviors and increase in endorsement of all symptoms including atypical perceptual disturbances, "hearing voices." Subacutely, she has had multiple hospitalizations. 09/18/16 Clear for release. Marly had an up and down course with agitation at times, threats to kill staff on occasion, and oppositional behavior. Eventually she made a spontaneous recovery to her baseline, with reduced distress, absence of ideas of harming anyone, and low reported symptoms. She achieved appropriate acute results, and yield of further inpatient care is not expected (but negative therapeutic reactions and setbacks are). We implemented her behavior modification plan. Medmgt. restarted her outpatient regimen, restarted Flomax, and streamlined her regimen to one antipsychotic for discharge. We provided Haldol on a prn basis at her request. Acute risk of serious harm to self / other is assessed as low currently based on Marly's low symptom burden, and current intact behavioral control, benign ideation. Her condition is fluid, she is volatile, and risk status can change rapidly. She is at chronic elevated risk for impulsive violence, suicide, intentional and inadvertent harm. Clear for Discharge: Adequate Clinical Respons, Acceptable Safety Profile, Low Utility of Inpt Care Inpatient DSM-IV Dx: Depressive disorder, posttraumatic stress disorder, dissociative disorder, borderline personality disorder, borderline intellectual functioning. Discharge Planning - Discharge Planning Discharge Plan: Outpatient Follow Up Outpatient Program: [facility] Recommendations for Continuing Care: Medication Management, Psychotherapy, Substance Abuse Counseling, Routine Metabolic Monitoring Medications: Current Medications Benztropine Mesylate (Cogentin Tab*) 1 mg PO DAILY [facility] Last Admin: 09/18/16 07:58 Dose: 1 mg Nicotine (Nicotine Inhaler*) 10 mg INH Q2H PRN PRN Reason: CRAVING Last Admin: 09/18/16 07:10 Dose: 10 mg Nicotine Polacrilex (Nicotine Gum*) 2 mg PO Q2H PRN PRN Reason: CRAVING Last Admin: 09/18/16 06:46 Dose: 2 mg Paliperidone (Invega Tab*) 6 mg PO DAILY [facility] Last Admin: 09/18/16 07:57 Dose: 6 mg Tamsulosin HCl (Flomax Cap*) 0.4 mg PO DAILY [facility] Last Admin: 09/18/16 07:57 Dose: 0.4 mg Discharge Planning: Prescriptions provided for discharge [x] Yes Invega, trazodone Follow up care details as per social work arrangements. Patient response to discharge plan: [x] eager for discharge [] agreeable with discharge plan [] ambivalent about discharge [] disagrees with discharge today
== END 2016-09-18 11:05 | disposition home or self-care (01) | DRG 754 ==
LOC: ED 09:20 → BSU 15:11
PROVIDERS: ADMIT Psychiatry & Neurology Psychiatry; ATTEND Psychiatry & Neurology Psychiatry
PROC: 0HQCXZZ Repair Left Upper Arm Skin, External Approach (ICD-10-PCS; principal; 2016-09-13)
DX: F32.9 Major depressive disorder, single episode, unspecified (principal); F25.9 Schizoaffective disorder, unspecified; E73.9 Lactose intolerance, unspecified; F43.10 Post-traumatic stress disorder, unspecified; F44.9 Dissociative and conversion disorder, unspecified; F60.3 Borderline personality disorder; R41.83 Borderline intellectual functioning; E66.9 Obesity, unspecified; Z88.0 Allergy status to penicillin; Z91.040 Latex allergy status; Z91.048 Other nonmedicinal substance allergy status; J45.909 Unspecified asthma, uncomplicated; F41.0 Panic disorder [episodic paroxysmal anxiety]; Z81.8 Family history of other mental and behavioral disorders; Z81.1 Family history of alcohol abuse and dependence; F17.210 Nicotine dependence, cigarettes, uncomplicated; Z68.34 Body mass index [BMI] 34.0-34.9, adult; S41.112A Laceration without foreign body of left upper arm, initial encounter; X78.8XXA Intentional self-harm by other sharp object, initial encounter; Y92.9 Unspecified place or not applicable
CPT/HCPCS: 36415; 80053; 80307; 80320; 80329; 81003; 81015; 84443; 85025; 87077; 87086; 99222; 99231; 99238; A9270-GY; G0480

== ENCOUNTER 2016-10-01 07:06 | Emergency (ER) | payer MEDICAID, OTHER ==
[2016-10-01] MEDS ORDERED: LORazepam INJ* 2 MG/ML 1 ML VIAL IM ONE ×2 (08:28→13:20)
[2016-10-01 09:04] LABS: Hematocrit 42 % (35-47); Hemoglobin 14.3 g/dl (12.0-16.0); Mean Corpuscular HGB Conc 34 g/dl (31-36); Mean Corpuscular Hemoglobin 29 pg (27-31); Mean Corpuscular Volume 86 fL (80-97); Mean Platelet Volume 9 um3 (7.4-10.4); Red Blood Count 4.94 10^6/ul (4.0-5.4); Red Cell Distribution Width 14 % (10.5-15); White Blood Count 9.5 10^3/ul (3.5-10.8)
--- NOTE | 2016-10-01 09:05 | RAD ---
HISTORY: Evaluate for foreign body COMPARISONS: None VIEWS: Frontal views of the abdomen. FINDINGS: BOWEL: There is a nonobstructive bowel gas pattern. There is a moderate amount of stool within the colon. CALCULI: There are no abnormal calculi. BONES AND SOFT TISSUES: There are no osseous abnormalities. OTHER FINDINGS: The lung bases are clear. There is no subphrenic gas. An IUD is noted. There is no other radiopaque foreign body. IMPRESSION: AN IUD IS NOTED. THERE IS NO OTHER RADIOPAQUE FOREIGN BODY.
[2016-10-01 09:16] LABS: ALT 23 U/L (7-52); AST 16 U/L (13-39); Albumin 4.4 g/dL (3.2-5.2); Alkaline Phosphatase 70 U/L (34-104); Anion Gap 8 mmol/L (2-11); BUN/Creatinine Ratio 16.2 (8-20); Blood Urea Nitrogen 12 mg/dL (6-24); CO2 Carbon Dioxide 22 mmol/L (22-32); Calcium 9.6 mg/dL (8.6-10.3); Chloride 106 mmol/L (101-111); EGFR African American 120.2 (>60); EGFR Non-African American 93.5 (>60); Globulin 3.6 g/dL (2-4); Glucose 93 mg/dL (70-100); Potassium 3.9 mmol/L (3.5-5.0); Sodium 136 mmol/L (133-145)
[2016-10-01 09:36] LABS: Acetaminophen < 15 mcg/mL; Alcohol < 10 mg/dL (<10); Salicylate < 2.50 mg/dL (<30)
[2016-10-01 09:46] LABS: TSH (Thyroid Stimulating Horm) 1.56 mcIU/mL (0.34-5.60)
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
[2016-10-01] MEDS ORDERED: LORazepam TAB(*) 1 MG PO ONE ×2 (19:19→22:54)
[2016-10-01] MEDS ORDERED: Zolpidem TAB* 5 MG PO ONE (19:24)
[2016-10-01 21:04] LABS: Budding Yeast Present (Absent); Urine Bacteria 1+ (Absent); Urine Bilirubin Negative (Negative); Urine Glucose Negative (Negative); Urine Nitrite Negative (Negative)
[2016-10-01 21:06] LABS: Benzodiazepine Urine Screen None Detected (None Detect)
[2016-10-01] MEDS: Nicotine GUM* 2 MG PO PRN (21:32)
[2016-10-02] MEDS ORDERED: Haloperidol TAB* 5 MG PO ONE (00:51)
[2016-10-02] MEDS: Nicotine GUM* 2 MG PO PRN ×4 (05:52→17:08)
[2016-10-02] MEDS ORDERED: hydrOXYzine HCL TAB* 50 MG PO ONE (07:41)
[2016-10-02] MEDS ORDERED: LORazepam TAB(*) 1 MG PO ONE ×2 (10:28→18:24)
[2016-10-02] MEDS ORDERED: ALPRAZolam TAB* 0.5 MG PO ONE (15:11)
[2016-10-02] MEDS ORDERED: LORazepam TAB(*) 1 MG ONE (18:22)
[2016-10-02] MEDS ORDERED: Zolpidem TAB* 10 MG PO ONE (19:16)
--- NOTE | 2016-10-02 20:03 | ED ---
Progress - Progress Note Progress Note: Pt signed out to me by Dr. Lombardi, She has been accepted for transfer by Dr. Wills at [place] - Consult/PCP Time Called: 08:00 Re-Evaluation - Re-Evaluation Second Eval Re-Evaluation Time: 13:33 Comment: Pt reports feeling increased anxious - requesting additional ativan - [facility]HU ok - will give 1mg IM x 1 First Eval Re-Evaluation Time: 12:54 Comment: spoke with [facility] - waiting for response from other facilities. Pt without acute needs Course/Dx - Diagnoses Provider Diagnoses: Laceration, Depression - Provider Notifications Discussed Care Of Patient With: [facility] whom notes there are no beds available but they are contacting other facilities for possible MH transfer. Time Discussed With Above Provider: 10:27
[2016-10-02] MEDS ORDERED: Nicotine GUM* 2 MG ONE (20:34)
[2016-10-02 23:14] VITALS: BP 144/94
== END 2016-10-02 23:13 ==
LOC: ED 07:06
DX: R44.3 Hallucinations, unspecified (principal); S61.512A Laceration without foreign body of left wrist, initial encounter; F22 Delusional disorders; X78.9XXA Intentional self-harm by unspecified sharp object, initial encounter; Y93.9 Activity, unspecified; Y92.9 Unspecified place or not applicable; Y99.9 Unspecified external cause status
CPT/HCPCS: 36415; 74000; 80053; 80307; 80320; 80329; 81003; 81015; 84443; 84702; 85025; 87086; 96374; 99282; A9270-GY; G0480; J2060

== ENCOUNTER 2016-10-09 21:08 | Inpatient (IN) | payer OTHER ==
[2016-10-09] MEDS ORDERED: Haloperidol TAB* 5 MG PO ONE (21:35)
[2016-10-09] MEDS ORDERED: LORazepam TAB(*) 1 MG PO ONE (21:35)
[2016-10-09] MEDS ORDERED: diPHENhydraMINE PO* 50 MG PO ONE (21:35)
[2016-10-09] MEDS ORDERED: Zolpidem TAB* 10 MG PO ONE (23:48)
[2016-10-10] MEDS ORDERED: Mouth Piece, Nicotine* 1 EACH CARTRIDGE INH SCH (01:35)
[2016-10-10] MEDS ORDERED: Acetaminophen TAB* 325 MG PO PRN (01:35)
[2016-10-10] MEDS ORDERED: Al Hydrox/Mg Hydrox/Simet LIQ* 30 ML UDC PO PRN ×2 (01:35→16:05)
[2016-10-10] MEDS ORDERED: Haloperidol TAB* 5 MG ONE (05:59)
[2016-10-10] MEDS ORDERED: LORazepam TAB(*) 1 MG ONE (06:06)
[2016-10-10] MEDS ORDERED: diPHENhydraMINE PO* 50 MG ONE (06:07)
[2016-10-10] MEDS ORDERED: Mouth Piece, Nicotine* 1 EACH CARTRIDGE ONE (06:24)
[2016-10-10] MEDS: Nicotine GUM* 2 MG PO PRN ×3 (06:27→12:26)
[2016-10-10] MEDS: Nicotine Inhaler* 10 MG AMP INH PRN ×3 (06:27→15:48)
[2016-10-10] MEDS: Vitamin THERAPEUTIC TAB PO SCH (09:54)
[2016-10-10] MEDS ORDERED: Nicotine GUM* 2 MG PO PRN (12:47)
[2016-10-10] MEDS ORDERED: chlorproMAZINE TAB* 50 MG PO ONE (12:48)
[2016-10-10] MEDS ORDERED: chlorproMAZINE TAB* 25 MG PO PRN (12:48)
[2016-10-10] MEDS: Tamsulosin CAP* 0.4 MG PO SCH (12:52)
[2016-10-10] MEDS: Omeprazole CAP* 20 MG PO SCH (12:53)
[2016-10-10] MEDS: NICOTINE GUM 2 MG PO PRN ×3 (14:47→18:58)
[2016-10-10] MEDS ORDERED: Nicotine Inhaler* 10 MG AMP INH PRN (16:05)
[2016-10-10] MEDS ORDERED: Albuterol HFA INHALER* 8 gm MDI INH PRN (16:31)
[2016-10-10] MEDS: Paliperidone TAB* 6 MG PO SCH (17:23)
--- NOTE | 2016-10-10 18:16 | HP ---
HISTORY AND PHYSICAL: DATE OF ADMISSION: IDENTIFYING DATA: Marly Pérez is a 26-year-old mentally disabled female with a history of many psychiatric hospitalizations, severe borderline personality disorder, borderline intellectual functioning, chronic significant self-harm behaviors, parasuicidal and suicidal behavior and aggression. Additionally, she has had dissociative symptoms, seizures, and atypical psychotic symptoms. She is admitted to the psychiatric unit approximately 10 days after her last psychiatric admission (at another facility) having presented to the emergency room with significant self-cutting behavior, and reported suicidal and homicidal ideation. HISTORY OF PRESENT ILLNESS: Marly was last seen in our emergency room on 10/01 and was transferred to [facility], she said she was there for one day and it was a bad experience. She reports not adhering with outpatient clinic visits since then, but she has adhered with her medication, principally trazodone and Invega. She reports conflicts with her girlfriend and mother and states that she is very angry at them. She reported passive desire to kill them with no active plans now, but in the emergency room she states she was going to kill her mother and girlfriend by stabbing and burning them. She also endorsed suicidal thoughts with ideas of cutting and she engaged in significant cutting on her arms with multiple linear abrasions, superficial lacerations, and deep scrapes along with punctures on her arms. She denies the use of alcohol or drugs. She denied new health problems but updated her medical problems with report of asthma. She denied current violent ideation or current suicidal plan. She states she does not feel like she is ready to go home. She was open to the idea of behaving appropriately in the psychiatric unit and was agreeable with implementation of her behavioral modification plan. She states she has been taking Invega reliably and wants to continue, but she was also interested in a retrial of Topamax, citing benefit for weight loss. Additionally, she wanted to be on Flomax and requested a bladder scan and catheterization. She preferred indwelling catheter but I explained that it is not something that we were going to implement without further consultation. PREVIOUS PSYCHIATRIC HISTORY: Many psychiatric hospitalizations and additional hospitalization of stay hospital level. She has had chronic severe self-injury behavior with many instances of self-cutting, often requiring sutures. She has had periodic suicidal behavior. She has had minor aggression in the past. She has had many medication trials with nothing fundamentally altering her course and she has failed multiple antipsychotic trials, which have been generally an off-label use for mood instability and impulsiveness. She has also had atypical psychotic features but is not evaluated with a beto psychotic disorder like schizophrenia or schizoaffective disorder. She has had outpatient care with [facility] and with the [facility]. DIAGNOSES: Include intellectual disability, borderline personality disorder, substance related disorder, dissociative disorder, psychotic disorder, posttraumatic stress disorder. She has had dissociative symptoms at times and has also had mental status changes that appear to have been activated by seizure activity. MEDICATION TRIALS Include: 1. Trazodone. 2. Topamax. 3. Quetiapine. 4. Thorazine. 5. Mirtazapine. 6. Gabapentin. 7. Campral. 8. Clonidine. 9. [place]. 10. Depakote. 11. Citalopram. 12. Naltrexone. She has a history of very poor adherence with outpatient treatment and medications and also very unstable clinical alliances. She has had severe negative therapeutic reactions in the psychiatric unit and clinically it is most appropriate for her to be stabilized briefly and discharged once not actively suicidal or out of control. She has had longer psychiatric hospitalizations that have been based on either negative therapeutic reactions or behavioral regression or the absence of a stable place to live. MEDICAL HISTORY: Obesity, seizure disorder, urinary retention, herpes zoster, asthma. OUTPATIENT MEDICATION REGIMEN: 1. Invega 6 mg per day. 2. Cogentin 0.5 mg daily. 3. Trazodone 50 mg at bedtime. 4. Nicotine gum 2 mg on a p.r.n. basis FOR cravings. 5. Pantoprazole 40 mg a day. 6. Flomax 0.4 mg a day. DRUG ALLERGIES: PENICILLIN V. FAMILY PSYCHIATRIC HISTORY: Half siblings have a history of learning and conduct problems. SUBSTANCE USE HISTORY: Previously reported marijuana use and use of cocaine as reported, alcohol cravings and treatments with Campral in the past. SOCIAL HISTORY: Marly was adopted and raised with half and adopted siblings. She did not graduate high school due to frequent hospitalizations for psychiatric care. She has had long-term relationship with a girlfriend Wendi, recently has been up and down with a lot of conflict. Marly identifies as lesbian. She has resided recently with her mother, which is also a conflicted relationship and up and down but has proven to be necessary as primary support, as at times Marly has been homeless. In the past, she has been in supported mental health housing through the [facility]. MENTAL STATUS EXAMINATION: Obese late 20s female, who is fairly well - kempt in hospital scrub clothing with good hygiene. She has visible deep scrapes and superficial lacerations on her arms along with punctured wounds that all appear to be in their early stages of healing. She has somewhat slow psychomotor activity, is sullen but cooperative and calm, maintains good eye contact. Speech is spontaneous and unpressured. Mood is described as "bad." Affect is constricted and dysphoric. Thought process is impoverished. Thought content negative for suicidal, homicidal, or paranoid ideation. Sensorium is clear. She is alert and oriented x3. Insight and judgment is poor. Impulse control is poor. REVIEW OF SYSTEMS: Negative for seizures, respiratory difficulties apart from report of some wheezing, negative for chest pain, syncope, gastrointestinal distress, or elimination symptoms apart from her report of urinary retention and suprapubic fullness. Negative for new musculoskeletal problems or skin problems apart from recent self-injury. PHYSICAL EXAMINATION VITAL SIGNS: Temperature is 98.8, blood pressure is 117/88, pulse is 120, and respiratory rate is 16. Physical examination is deferred. Marly declined it citing her preference. ADMISSION LABORATORY STUDIES: None on this episode. IMPRESSION: She is medically stable for psychiatric hospitalization. It is appropriate to obtain bladder scan and provide straight catheterization if needed. Additionally, we will restart Flomax for urinary retention. CLINICAL SUMMARY: This is a 26-year-old mentally disabled female with history of severe borderline personality disorder, chronic severe self-harm behavior, intellectual disability, periodic suicide attempt, history of traumas, consideration for posttraumatic stress disorder, and dissociative symptoms along with atypical psychosis. She presents typically with self-cutting behavior with some expression of suicidal ideation and also homicidal ideation towards her loved ones. This is a breakdown of her rudimentary coping skills. She merits psychiatric hospitalization for immediate safety, efforts should be made to keep the admission brief and to provide behavioral modification programming. ADMISSION DIAGNOSES: Mood disorder not otherwise specified, adjustment disorder , posttraumatic stress disorder, borderline personality disorder, borderline intellectual dysfunctioning. TREATMENT PLAN: Admit to the psychiatric unit. Code status is full. Safety checks every 15 minute intervals. Initiate comprehensive group, milieu, and individual psychotherapeutic supports with criteria around group participation and behavioral modification interventions. I will continue the regimen of Invega with trazodone and additionally provide Topamax or Flomax and albuterol for wheezing on a p.r.n. basis. Estimated length of stay is 1 to 2 days. Discharge planning will involve coordination with appropriate aftercare. The patient's strengths are her positive help seeking behavior and adequate baseline physical health. [id number]/[facility] #: [id number] NEIL
[2016-10-10] MEDS ORDERED: traZODone TAB* 50 MG TAB PO PRN (18:39)
[2016-10-10 19:05] LABS: Hematocrit 39 % (35-47); Mean Corpuscular HGB Conc 33 g/dl (31-36); Mean Corpuscular Hemoglobin 29 pg (27-31); Mean Corpuscular Volume 87 fL (80-97); Mean Platelet Volume 9 um3 (7.4-10.4); Red Cell Distribution Width 14 % (10.5-15); White Blood Count 10.6 10^3/ul (3.5-10.8)
[2016-10-10 19:21] LABS: ALT 18 U/L (7-52); AST 13 U/L (13-39); Albumin 3.8 g/dL (3.2-5.2); Alkaline Phosphatase 63 U/L (34-104); Anion Gap 2 mmol/L (2-11); BUN/Creatinine Ratio 17.9 (8-20); Blood Urea Nitrogen 12 mg/dL (6-24); CO2 Carbon Dioxide 27 mmol/L (22-32); Calcium 9.3 mg/dL (8.6-10.3); Chloride 107 mmol/L (101-111); EGFR African American 134.8 (>60); EGFR Non-African American 104.8 (>60); Globulin 3.1 g/dL (2-4); Glucose 118 mg/dL (70-100); Potassium 4.3 mmol/L (3.5-5.0); Sodium 136 mmol/L (133-145); Total Protein 6.9 g/dL (6.4-8.9)
[2016-10-10 19:39] LABS: Acetaminophen < 15 mcg/mL; Alcohol < 10 mg/dL (<10); Salicylate < 2.50 mg/dL (<30)
[2016-10-10 19:49] LABS: TSH (Thyroid Stimulating Horm) 1.45 mcIU/mL (0.34-5.60)
[2016-10-10] MEDS ORDERED: Tamsulosin CAP* 0.4 MG PO ONE (21:00)
[2016-10-10] MEDS: Topiramate TAB(*) 25 MG PO SCH (23:40)
[2016-10-11] MEDS: NICOTINE GUM 2 MG PO PRN ×5 (00:42→17:11)
[2016-10-11 02:17] LABS: Urine Bilirubin Negative (Negative); Urine Glucose Negative (Negative); Urine Nitrite Negative (Negative)
[2016-10-11 02:37] LABS: Benzodiazepine Urine Screen Presumptive Positive (None Detect)
[2016-10-11] MEDS: Omeprazole CAP* 20 MG PO SCH (07:42)
[2016-10-11] MEDS: Paliperidone TAB* 6 MG PO SCH (07:44)
[2016-10-11] MEDS: Tamsulosin CAP* 0.4 MG PO SCH (07:45)
[2016-10-11] MEDS: Topiramate TAB(*) 25 MG PO SCH (07:45)
[2016-10-11] MEDS: Vitamin THERAPEUTIC TAB PO SCH (07:46)
[2016-10-11] MEDS ORDERED: Nicotine PATCH 14 MG/24 HR* PATCH TRANSDERM SCH (08:00)
[2016-10-11] MEDS ORDERED: Nicotine PATCH 7 MG/24 HR* PATCH TRANSDERM SCH (08:00)
--- NOTE | 2016-10-11 10:04 | PN ---
Subjective - Subjective Service Type: 17294 Hosp care 15 min low complexity Subjective: Marly had little to say. She acknowledged feeling calm and safer. She denied active plans to harm anyone. She said she hates her mother and home and does not want to go there, and refuses to consider discharge. I asked her about her bladder, she said it continues to feel full. Objective - Appearance Appearance: Obese Hygiene: Normal Grooming: Disheveled - Behavior Psychomotor Activities: Abnormal-Decreased - Attitude and Relatedness Attitude and Relatedness: Minimally Cooperative Eye Contact: Poor - Speech Quality: Unpressured Latencies: Normal Quantity: Terse - Mood Patient's Decription of Mood: "Sad" - Affect Observed Affect: Constricted Affect Consistent with: Dysphoria - Thought Process Patient's Thought Process: Impoverished Thought Content: No Passive Wish, No Suicidal Planning, No Homicidal Ideation, No Paranoid Ideation - Sensorium Experiencing Hallucinations: No, Sensorium is Clear - Level of Consciousness Level of Consciousness: Alert - Impulse Control Impulse Control: Poor - Insight and Judgement Insight and Judgement: Poor Assessment - Assessment Merits Inpatient Hospitalization: To Initiate Treatment, For Ongoing Evaluation , Consolidate Improvements, For Discharge Planning Inpatient DSM-IV Dx: Mood disorder not otherwise specified, adjustment disorder , posttraumatic stress disorder, borderline personality disorder, borderline intellectual functioning. Clinical Impression: 26-year-old mentally disabled female with history of severe borderline personality disorder, chronic severe self-harm behavior, intellectual disability , periodic suicide attempt, history of traumas, consideration for posttraumatic stress disorder, and dissociative symptoms along with atypical psychosis. She presented typically with self-cutting behavior with some expression of suicidal ideation and also homicidal ideation towards her loved ones. Settling down here. Currently at low distress and in basic behavioral control. But is unwilling to contemplate going home today. Most clinical goals for stabilization have been met. Psychiatric medication management continues Invega with trazodone and additionally provides Topamax. She has urinary retention - providing Flomax and bladder scanning - can not place catheter at her request, but will consult with hospitalist for guidance. Plan - Plan Treatment Plan: Name: MARLY WILKINSON Birthdate: 1990 [id number] Continued Medication Management: Continue Outpt Medication Medications: Current Medications Acetaminophen (Tylenol Tab*) 650 mg PO Q4H PRN PRN Reason: PAIN or TEMP > 101 F Last Admin: 10/11/16 08:44 Dose: 650 mg Al Hydrox/Mg Hydrox/Simethicone (Maalox Plus*) 30 ml PO Q4H PRN PRN Reason: INDIGESTION Albuterol (Ventolin Hfa Inhaler*) 2 puff INH Q2H PRN PRN Reason: SOB/WHEEZING Chlorpromazine HCl (Thorazine Tab*) 25 mg PO Q2H PRN PRN Reason: AGITATION Last Admin: 10/11/16 07:46 Dose: 25 mg Device (Nicotine Mouth Piece*) 1 each INH .[facility] Multivitamins (Theragran Tab*) 1 tab PO DAILY [facility] Last Admin: 10/11/16 07:46 Dose: Not Given Nicotine (Nicotine Inhaler*) 10 mg INH Q2H PRN PRN Reason: CRAVING Last Admin: 10/10/16 15:48 Dose: 10 mg Nicotine Polacrilex (Nicotine Gum*) 2 mg PO Q2H PRN PRN Reason: CRAVING Last Admin: 10/11/16 07:41 Dose: 2 mg Omeprazole (Prilosec Cap*) 20 mg PO DAILY [facility] Last Admin: 10/11/16 07:42 Dose: Not Given Paliperidone (Invega Tab*) 6 mg PO DAILY [facility] Last Admin: 10/11/16 07:44 Dose: 6 mg Tamsulosin HCl (Flomax Cap*) 0.4 mg PO DAILY [facility] Last Admin: 10/11/16 07:45 Dose: 0.4 mg Topiramate (Topamax(*)) 50 mg PO BID [facility] Last Admin: 10/11/16 07:45 Dose: 50 mg Trazodone HCl (Desyrel Tab*) 50 mg PO BEDTIME PRN PRN Reason: INSOMNIA Last Admin: 10/11/16 01:40 Dose: 50 mg - Discharge Plan Discharge Plan: Outpatient Follow Up
[2016-10-11] MEDS: chlorproMAZINE TAB* 50 MG PO ONE ×2 (11:34→11:53)
[2016-10-11] MEDS: Nicotine Inhaler* 10 MG AMP INH PRN (15:50)
[2016-10-12] MEDS: Topiramate TAB(*) 25 MG PO SCH ×2 (00:17→07:33)
[2016-10-12] MEDS: NICOTINE GUM 2 MG PO PRN ×2 (07:31→09:27)
[2016-10-12] MEDS: Omeprazole CAP* 20 MG PO SCH (07:32)
[2016-10-12] MEDS: Vitamin THERAPEUTIC TAB PO SCH (07:32)
[2016-10-12] MEDS: Paliperidone TAB* 6 MG PO SCH (07:34)
[2016-10-12] MEDS: Tamsulosin CAP* 0.4 MG PO SCH (07:34)
[2016-10-12 07:36] VITALS: BP 139/83
--- NOTE | 2016-10-12 10:48 | DS ---
Subjective - Subjective Service Types: [address] [facility] Day Mgmt simple under 30 min Discharge Date: 10/12/16 Subjective: Marly was in good spirits, smiling and using humor. She reported feeling "good" and was happy to go home. We reviewed medication plan (she opts to continue Topamax, stop Flomax, and asked for Rx. for trazodone). She affirmed mom continues to control her extra medication supply. She said she will follow up at the clinic, and affirmed she is safe unto herself and others. Objective - Appearance Appearance: Obese Hygiene: Normal Grooming: Fairly Well Kept - Behavior Psychomotor Activities: Normal - Attitude and Relatedness Attitude and Relatedness: Superficially Cooperative Eye Contact: Good - Speech Quality: Unpressured Latencies: Normal Quantity: Terse - Mood Patient's Decription of Mood: "Good" - Affect Observed Affect: Non-labile Affect Consistent with: Euthymia - Thought Process Patient's Thought Process: Coherent, Goal Directed, Impoverished Thought Content: No Passive Wish, No Suicidal Planning, No Homicidal Ideation, No Paranoid Ideation - Sensorium Experiencing Hallucinations: No, Sensorium is Clear - Level of Consciousness Level of Consciousness: Alert Orientation: Yes Intact - Impulse Control Impulse Control: Poor - Insight and Judgement Insight and Judgement: Poor Treatment Course & Assessment Clinical Course & Impression: 26-year-old mentally disabled female with history of severe borderline personality disorder, chronic severe self-harm behavior, intellectual disability , periodic suicide attempt, history of traumas, consideration for posttraumatic stress disorder, and dissociative symptoms along with atypical psychosis. She presented typically with self-cutting behavior with some expression of suicidal ideation and also homicidal ideation towards her loved ones. 10/12/16: Clear for release. Marly stabilized here, in typical fashion, with agitation and some threats yesterday. Psychiatric medication management continued Invega with trazodone and additionally provided Topamax. We implemented her behavior modification plan. She has some level of urinary retention - we provided Flomax and bladder scanning - Marly asked, apparently inappropriately, for an indwelling catheter. I discussed case with Dr. Briones, hospitalist - she is familiar with case and advises against placement of a catheter, rather use of straight cath and scan as we have been doing. The rationale is that experience with Marly suggested she was acting manipulative and using the catheter process ( application, removal) inappropriately. Marly has made another spontaneous recovery and is back to baseline, with dramatically reduced distress, absence of self harm, and benign ideation. Yield of further inpatient care is not expected (but negative therapeutic reactions and setbacks are). Acute risk of serious harm to self / other is assessed as low currently based on Marly's low symptom burden, current intact behavioral control, and cessation of suicidal and homicidal ideation. Her condition is fluid, she is volatile, and risk status can change rapidly. She is at chronic elevated risk for impulsive violence, suicide, intentional and inadvertent harm. Clear for Discharge: Adequate Clinical Respons, Acceptable Safety Profile, Low Utility of Inpt Care Inpatient DSM-IV Dx: Mood disorder not otherwise specified, adjustment disorder , posttraumatic stress disorder, borderline personality disorder, borderline intellectual functioning. Discharge Planning - Discharge Planning Discharge Plan: Outpatient Follow Up Out[facility] Program[facility] Recommendations for Continuing Care: Medication Management, Psychotherapy, Substance Abuse Counseling, Routine Metabolic Monitoring, Primary Care Followup Medications: Current Medications Albuterol (Ventolin Hfa Inhaler*) 2 puff INH Q2H PRN PRN Reason: SOB/WHEEZING Omeprazole (Prilosec Cap*) 20 mg PO DAILY [facility] Last Admin: 10/12/16 07:32 Dose: Not Given Paliperidone (Invega Tab*) 6 mg PO DAILY [facility] Last Admin: 10/12/16 07:34 Dose: 6 mg Tamsulosin HCl (Flomax Cap*) 0.4 mg PO DAILY [facility] Last Admin: 10/12/16 07:34 Dose: 0.4 mg Topiramate (Topamax(*)) 50 mg PO BID [facility] Last Admin: 10/12/16 07:33 Dose: 50 mg Trazodone HCl (Desyrel Tab*) 50 mg PO BEDTIME PRN PRN Reason: INSOMNIA Last Admin: 10/11/16 01:40 Dose: 50 mg Discharge Planning: Prescriptions provided for discharge [x] Yes Topamax, albuterol, trazodone Follow up care details as per social work arrangements. Patient response to discharge plan: [x] eager for discharge [] agreeable with discharge plan [] ambivalent about discharge [] disagrees with discharge today
--- NOTE | 2016-10-27 12:18 | ED ---
Prabhjot Lofton Claudia, scribed for Willam Lyn MD on 10/09/16 at 2126 . Psychiatric Complaint - HPI Summary HPI Summary: 26 year old female presents to the ED via [place] [employer]. Pt is here for a mental health evaluation. Pt notes attempting to cut herself on her right arm this evening. Pt has PMHx of psychiatric conditions. Pt is requesting a B52 - History Of Current Complaint Chief Complaint: EDMentalHealth Hx Obtained From: Patient Hx Last Menstrual Period: MIRENA IUD Aggravating Factor(s): Nothing Alleviating Factor(s): Nothing Related History: Positive For: Prior Psychiatric Issues Has Suicidal: Reports: Thoughts, Has Prior Attempt(s) - Allergies/Home Medications Allergies/Adverse Reactions: Allergies Allergy/AdvReac Type Severity Reaction Status Date / Time Penicillin V Allergy Severe Hives Verified 09/13/16 17:17 Latex Allergy Intermediate Rash Verified 09/13/16 17:17 Lactose Intolerance (GI) Allergy Diarrhea Verified 09/13/16 17:17 glue Allergy Rash Uncoded 09/13/16 17:17 steri strips Allergy Rash Uncoded 09/13/16 17:17 PMH/Surg Hx/FS Hx/Imm Hx Previously Healthy: Yes Endocrine/Hematology History: Denies: Hx Anticoagulant Therapy, Hx Diabetes - Borderline, Hx Thyroid Disease, Hx Unexplained Bleeding, Other Endocrine/Hematological Disorders Cardiovascular History: Denies: Hx Hypertension, Hx Pacemaker/ICD, Other Cardiovascular Problems/ Disorders Respiratory History: Reports: Hx Asthma Denies: Hx Chronic Obstructive Pulmonary Disease (COPD), Other Respiratory Problems/Disorders GI History: Denies: Hx Ulcer, Other GI Disorders History: Reports: Other Problems/Disorders - Urinary Retention and Herpes Denies: Hx Renal Disease Musculoskeletal History: Denies: Other Musculoskeletal History Sensory History: Reports: Hx Contacts or Glasses Denies: Hx Hearing Problem, Other Sensory Impairments Opthamlomology History: Reports: Hx Contacts or Glasses Denies: Other Sensory Impairments Neurological History: 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 Denies: Hx Dementia, Hx Developmental Delay, Other Neuro Impairments/ Disorders Psychiatric History: Reports: Hx Anxiety, Hx Depression, Hx Panic Disorder, Hx Post Traumatic Stress Disorder, Hx Inpatient Treatment, Hx Community Mental Health Tx, Hx Schizophrenia - Schizoaffective Disorder, Hx Bipolar Disorder, Hx Suicide Attempt, Hx of Violent Episodes Against Others - SEE VIOLENCE HX, Hx Substance Abuse, Other Psychiatric Issues/Disorders - COGNITIVELY LIMITED, BORDERLINE PERS D/O Denies: Hx Eating Disorder - Cancer History Hx Chemotherapy: No Hx Radiation Therapy: No Hx Palliative Cancer Treatment: No - Immunization History Date of Tetanus Vaccine: UTD Date of Influenza Vaccine: Unk Infectious Disease History: Reports: Hx Hepatitis, 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 - Social History Occupation: Unemployed Alcohol Use: None Alcohol Amount: "drank beer awhile ago" Hx Substance Use: No Substance Use Type: Reports: None Substance Use Comment - Amount & Last Used: Xanax and Ambien Hx Tobacco Use: Yes Smoking Status (MU): Light Every Day Tobacco Smoker Type: Cigarettes Amount Used/How Often: 1/2 PPD Length of Time of Smoking/Using Tobacco: 3 years Have You Smoked in the Last Year: Yes Review of Systems Constitutional: Negative Negative: Fever Eyes: Negative ENT: Negative Cardiovascular: Negative Respiratory: Negative Gastrointestinal: Negative Genitourinary: Negative Musculoskeletal: Negative Skin: Negative Neurological: Negative Positive: Depressed All Other Systems Reviewed And Are Negative: Yes Physical Exam Triage Information Reviewed: Yes Vital Signs On Initial Exam: Initial Vitals Resp 24 10/09/16 22:11 Vital Signs Reviewed: Yes Appearance: Positive: Well-Appearing, No Pain Distress Skin: Positive: Warm, Skin Color Reflects Adequate Perfusion, Dry Head/Face: Positive: Normal Head/Face Inspection Eyes: Positive: EOMI, OKSANA ENT: Positive: Normal ENT inspection Neck: Positive: Supple, Nontender Respiratory/Lung Sounds: Positive: Clear to Auscultation, Breath Sounds Present Cardiovascular: Positive: RRR Abdomen Description: Positive: Nontender, Soft Musculoskeletal: Positive: Normal, Strength/ROM Intact Neurological: Positive: Normal, Sensory/Motor Intact, Alert, Oriented to Person Place, Time Psychiatric: Positive: Affect/Mood Appropriate Diagnostics - Vital Signs Vital Signs Temp Pulse Resp BP Pulse Ox 10/09/16 23:06 98.8 F 140 20 117/88 98 10/09/16 23:02 98.8 F 140 20 117/88 98 10/09/16 23:01 98.2 F 140 20 117/88 98 10/09/16 22:12 98.8 F 140 20 117/88 98 10/09/16 22:11 24 - Laboratory Result Diagrams: 10/10/16 18:55 10/10/16 18:55 Lab Statement: Any lab studies that have been ordered have been reviewed, and results considered in the medical decision making process. Course/Dx - Differential Dx/Clinical Impression Provider Diagnosis: Mental health problem - Physician Notifications Patient Is Medically Stable For: Psych Evaluation - 21:25 Discharge - Discharge Plan Condition: Improved Disposition: ADMITTED TO [facility] documentation as recorded by the Prabhjot haskins Claudia accurately reflects the service I personally performed and the decisions made by , Willam Lyn MD.
== END 2016-10-12 10:45 | disposition home or self-care (01) | DRG 753 ==
LOC: ED 21:08 → BSU 10-10 02:05
PROVIDERS: ADMIT Psychiatry & Neurology Psychiatry; ATTEND Psychiatry & Neurology Psychiatry
DX: F39 Unspecified mood [affective] disorder (principal); G40.909 Epilepsy, unspecified, not intractable, without status epilepticus; E66.9 Obesity, unspecified; F60.3 Borderline personality disorder; F28 Other psychotic disorder not due to a substance or known physiological condition; F43.20 Adjustment disorder, unspecified; F43.10 Post-traumatic stress disorder, unspecified; R41.83 Borderline intellectual functioning; R33.9 Retention of urine, unspecified; F44.9 Dissociative and conversion disorder, unspecified; J45.909 Unspecified asthma, uncomplicated; Z88.0 Allergy status to penicillin; Z68.32 Body mass index [BMI] 32.0-32.9, adult; Z91.5 Personal history of self-harm; Z81.8 Family history of other mental and behavioral disorders; Z59.0 Homelessness; Z91.040 Latex allergy status; Z91.048 Other nonmedicinal substance allergy status
CPT/HCPCS: 36415; 80053; 80307; 80320; 80329; 81003; 84443; 84702; 85025; 99222; 99231; 99238; 99283; A9270-GY; G0480

== ENCOUNTER 2016-11-02 21:21 | Inpatient (IN) | payer MEDICAID, OTHER ==
[2016-11-02 21:53] LABS: Urine Bacteria 1+ (Absent); Urine Bilirubin Negative (Negative); Urine Glucose Negative (Negative); Urine Nitrite Negative (Negative)
[2016-11-02 22:10] LABS: Benzodiazepine Urine Screen Presumptive Positive (None Detect)
[2016-11-02 23:14] LABS: Hematocrit 41 % (35-47); Hemoglobin 13.8 g/dl (12.0-16.0); Mean Corpuscular HGB Conc 34 g/dl (31-36); Mean Corpuscular Hemoglobin 29 pg (27-31); Mean Corpuscular Volume 85 fL (80-97); Mean Platelet Volume 9 um3 (7.4-10.4); Red Blood Count 4.81 10^6/ul (4.0-5.4); Red Cell Distribution Width 14 % (10.5-15); White Blood Count 15.2 10^3/ul (3.5-10.8)
[2016-11-02 23:26] LABS: ALT 19 U/L (7-52); AST 15 U/L (13-39); Albumin 4.4 g/dL (3.2-5.2); Alkaline Phosphatase 69 U/L (34-104); Anion Gap 8 mmol/L (2-11); BUN/Creatinine Ratio 19.4 (8-20); Blood Urea Nitrogen 14 mg/dL (6-24); CO2 Carbon Dioxide 23 mmol/L (22-32); Calcium 9.8 mg/dL (8.6-10.3); Chloride 104 mmol/L (101-111); EGFR Non-African American 96.5 (>60); Globulin 3.5 g/dL (2-4); Glucose 98 mg/dL (70-100); Potassium 3.9 mmol/L (3.5-5.0); Sodium 135 mmol/L (133-145); Total Protein 7.9 g/dL (6.4-8.9)
[2016-11-02] MEDS ORDERED: traZODone TAB* 50 MG TAB ONE (23:30)
[2016-11-02] MEDS ORDERED: Topiramate TAB(*) 25 MG ONE (23:31)
[2016-11-02] MEDS ORDERED: traZODone TAB* 50 MG TAB PO ONE (23:34)
[2016-11-02] MEDS ORDERED: Topiramate TAB(*) 25 MG PO ONE (23:34)
[2016-11-02 23:49] LABS: Acetaminophen < 15 mcg/mL; Alcohol < 10 mg/dL (<10); Salicylate < 2.50 mg/dL (<30)
[2016-11-02 23:59] LABS: TSH (Thyroid Stimulating Horm) 2.23 mcIU/mL (0.34-5.60)
[2016-11-03] MEDS ORDERED: LORazepam TAB(*) 1 MG PO ONE ×4 (03:02→15:23)
[2016-11-03] MEDS ORDERED: Nicotine GUM* 2 MG ONE (08:20)
[2016-11-03] MEDS: Nicotine GUM* 2 MG PO PRN ×6 (08:24→19:53)
[2016-11-03] MEDS ORDERED: Benzocaine/Menthol LOZ* 1 LOZENGE MT PRN (08:49)
[2016-11-03] MEDS ORDERED: Benzocaine/Menthol LOZ* 1 LOZENGE ONE (08:53)
[2016-11-03] MEDS ORDERED: LORazepam TAB(*) 1 MG ONE (11:43)
[2016-11-03] MEDS ORDERED: diPHENhydraMINE IV* 50 MG/ML 1 ml VIAL (BENADRYL) IM ONE (19:11)
[2016-11-03] MEDS ORDERED: Haloperidol INJ IV/IM* 5 MG/ML AMP IM ONE (19:11)
[2016-11-03] MEDS ORDERED: LORazepam INJ* 2 MG/ML 1 ML VIAL IM ONE (19:11)
[2016-11-03] MEDS ORDERED: Albuterol HFA INHALER* 8 gm MDI INH PRN (19:38)
[2016-11-03] MEDS ORDERED: traZODone TAB* 50 MG TAB PO PRN (19:38)
--- NOTE | 2016-11-03 19:39 | ED ---
Nelsy Lofton Matthew, scribed for Levi Toro MD on 11/03/16 at 1822 . Progress - Progress Note Progress Note: The patient is a sign out from Dr. Lombardi. Signed paperwork for the involuntary transfer of the patient to [facility]. She is in stable condition. The patient has two parallel lacerations on her left wrist. The first laceration is 4cm in length and was repaired with 7 running sutures. The other 3cm laceration was repaired with 3 interrupted sutures. The wounds are healing well and the patient has full ROM in her fingers. - Consult/PCP Time Called: 22:35 Course/Dx - Course Course Of Treatment: pt. is an involuntary psychiatric admission and transfer. pt will be provided anti-anxiety medication prior to her transfer. - Diagnoses Provider Diagnoses: Laceration of wrist, Self-harm, Suicidal ideation, Depression - Provider Notifications Discussed Care Of Patient With: Dr. Cruz (psychiatrist) at 18:51 -- Notified of patinet's history and accepts transfer of the patient into his care. The documentation as recorded by the Nelsy haskins Matthew accurately reflects the service I personally performed and the decisions made by , Levi Toro MD.
[2016-11-03 21:01] VITALS: BP 134/56
[2016-11-04] MEDS: Topiramate TAB(*) 25 MG PO SCH ×2 (00:24→09:29)
[2016-11-04] MEDS: Nicotine GUM* 2 MG PO PRN ×4 (08:16→18:13)
--- NOTE | 2016-11-04 09:11 | PN ---
Progress Note - Progress Note Note: Discussed U/A, micro, CBC with Dr. Reese in informal consultation - she said results are not consistent with infection and pt does not require ABX.
[2016-11-04] MEDS: chlorproMAZINE TAB* 50 MG PO PRN ×3 (09:38→16:35)
[2016-11-04] MEDS ORDERED: chlorproMAZINE TAB* 50 MG PO ONE (10:00)
--- NOTE | 2016-11-04 11:47 | HP ---
HISTORY AND PHYSICAL: IDENTIFYING DATA: Marly Pérez is a 26-year-old mentally disabled domiciled female with a history of numerous psychiatric hospitalizations, severe borderline personality disorder, borderline intellectual functioning, chronic significant self- harm behavior with parasuicidal behavior and suicide attempts , along with aggression. She has also had atypical perceptual symptoms and dissociative symptoms. She is admitted to the psychiatric unit about 4 weeks after her last psychiatric hospitalization having been brought to the emergency room by law enforcement with report of self-cutting and suicidal ideation. This is an update to the history and physical associated with Marly's October 10 admission. Please see my report for that admission for details of her prior history. Marly reports that she had not been hospitalized since her last admission at [facility] and has been connected with the outpatient clinic, although she cannot recall her last visit. She says she has been inconsistent in taking medications. She identified the problem of a friend dying and was apparently at a and cut herself. She said it was a suicide attempt and states she has ongoing desire to . She denies ideas of harming anyone else and apparently made no homicidal comments, although she did say in the emergency room that she "needs to be hospitalized, as she is going to hurt someone." She reports living with her mother and said her mother does not care about her and told her to go ahead and kill herself. She denied new health problems and has denied the use of intoxicants. She was ambivalent about being in the hospital at one point saying she wants to go to another facility and quickly thereafter saying that she wants to stay here for an extended period of time. On interview, she was perseverating on "I want him to wake up" and seem to be talking about the person who and whose she attended. She was in high distress and acknowledged that it would be appropriate to take some Thorazine. MENTAL STATUS EXAMINATION: Obese, early middle aged female, who is a little disheveled with good hygiene, in hospital scrub clothing. She has a bandage over her left wrist. She is child like and needy with good eye contact and short speech latencies. Mood is described as "terrible." Affect is labile and dysphoric. Thought process is perseverative. Thought content significant for wishes. There is no homicidal or paranoid ideations. Sensorium is currently clear. She is alert. Her impulse control is impaired, and her insight and judgment is poor. PHYSICAL ASSESSMENT: VITAL SIGNS: Temperature 96.8, blood pressure 134/56, pulse 115, respiratory rate 18. ADMISSION LABORATORY STUDIES: CBC had white blood count of 15.2, 22.4% lymphocytes, 10.1 absolute neutrophils, 1.3 absolute monocytes. Comprehensive panel was normal. TSH was normal. Urinalysis had trace leukocyte esterase, 3+ white blood cells, 2+ red blood cells, squamous epithelial cells, and 1+ bacteria. Toxicology screen is negative for Tylenol, alcohol, or salicylates. Urine drug screen was positive for benzodiazepines. Urine culture final grew out Strep group B with few colonies. REVIEW OF SYSTEMS: Negative for neurological symptoms, respiratory problems, chest pain, gastrointestinal distress, elimination symptoms including urinary symptoms, musculoskeletal problems or skin problems apart from her wrist laceration. PHYSICAL EXAMINATION She declined physical examination and this is a reasonable declination. She has been medically cleared for psychiatric hospitalization. She has abnormal urinalysis with few colonies of Strep group B in her urine and no urinary symptoms. This does not require antibiotic treatment at this time. I confirmed this with hospitalist (Errol Reese). CLINICAL SUMMARY: A 26-year-old mentally disabled female with a history of severe borderline personality disorder, intellectual disability, chronic severe self-harm behavior, periodic suicide attempts, history of trauma, dissociative symptoms, atypical psychosis. She presents about 4 weeks after her last hospitalization having cut herself and acknowledging recent suicidal ideation and suicidal intent with the cutting. This is in the setting of a stress of the of a friend and a coping breakdown. She merits psychiatric hospitalization for immediate safety, stabilization, and treatment planning. ADMISSION DIAGNOSES: Mood disorder, NOS; adjustment disorder; posttraumatic stress disorder; borderline personality disorder; borderline intellectual functioning; eating disorder by history. TREATMENT PLAN: Admit to the psychiatric unit. Code status is full. Safety checks every 15-minute intervals. Initiate comprehensive, group milieu and individual psychotherapeutic support. Implement behavior modification interventions. We will modify the outpatient regimen, as the patient has been nonadherent with it and provide Thorazine for its calming effects instead of Invega. Targed symptoms are agitation, self harm behavior, suicidal ideation. Estimated length of stay is 2 to 4 days. Discharge planning will involve coordination with appropriate aftercare. The patient's strengths are her positive help seeking behavior and adequate baseline physical health. [id number]/[facility] #: [id number] NEIL
[2016-11-04] MEDS: Nicotine Inhaler* 10 MG AMP INH PRN (11:57)
[2016-11-04] MEDS ORDERED: Mouth Piece, Nicotine* 1 EACH CARTRIDGE ONE (11:57)
--- NOTE | 2016-11-04 15:15 | ED ---
Eugene Lofton Alok, scribed for Tj Lombardi MD on 11/02/16 at 2211 . Psychiatric Complaint - HPI Summary HPI Summary: 26 y/o female presents to the ED after cutting her left wrist at 2130 today. Pt states she has SI and was cutting herself with intent to end life. Pt adds she has not been sleeping much lately. She is tobacco use and EtOH use positive. - History Of Current Complaint Chief Complaint: EDMentalHealth Time Seen by Provider: 11/02/16 21:34 Hx Obtained From: Patient Hx Last Menstrual Period: MIRENA IUD ?: No Onset/Duration: Gradual Onset, Lasting Weeks, Still Present Timing: Constant Severity Initially: Moderate Severity Currently: Moderate Character: Depressed Aggravating Factor(s): Nothing Alleviating Factor(s): Nothing Associated Signs And Symptoms: Positive: Sleep Disturbance Has Suicidal: Reports: Thoughts, Has Prior Attempt(s) - Allergies/Home Medications Allergies/Adverse Reactions: Allergies Allergy/AdvReac Type Severity Reaction Status Date / Time Penicillin V Allergy Severe Hives Verified 09/13/16 17:17 Latex Allergy Intermediate Rash Verified 09/13/16 17:17 Lactose Intolerance (GI) Allergy Diarrhea Verified 09/13/16 17:17 glue Allergy Rash Uncoded 09/13/16 17:17 steri strips Allergy Rash Uncoded 09/13/16 17:17 PMH/Surg Hx/FS Hx/Imm Hx Endocrine/Hematology History: Denies: Hx Anticoagulant Therapy, Hx Diabetes - Borderline, Hx Thyroid Disease, Hx Unexplained Bleeding, Other Endocrine/Hematological Disorders Cardiovascular History: Denies: Hx Hypertension, Hx Pacemaker/ICD, Other Cardiovascular Problems/ Disorders Respiratory History: Reports: Hx Asthma Denies: Hx Chronic Obstructive Pulmonary Disease (COPD), Other Respiratory Problems/Disorders GI History: Denies: Hx Ulcer, Other GI Disorders History: Reports: Other Problems/Disorders - Urinary Retention and Herpes Denies: Hx Renal Disease Musculoskeletal History: Denies: Other Musculoskeletal History Sensory History: Reports: Hx Contacts or Glasses Denies: Hx Hearing Problem, Other Sensory Impairments Opthamlomology History: Reports: Hx Contacts or Glasses Denies: Other Sensory Impairments Neurological History: 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 Denies: Hx Dementia, Hx Developmental Delay, Other Neuro Impairments/ Disorders Psychiatric History: Reports: Hx Anxiety, Hx Depression, Hx Panic Disorder, Hx Post Traumatic Stress Disorder, Hx Inpatient Treatment, Hx Community Mental Health Tx, Hx Schizophrenia - Schizoaffective Disorder, Hx Bipolar Disorder, Hx Suicide Attempt, Hx of Violent Episodes Against Others - SEE VIOLENCE HX, Hx Substance Abuse, Other Psychiatric Issues/Disorders - COGNITIVELY LIMITED, BORDERLINE PERS D/O Denies: Hx Eating Disorder - Cancer History Hx Chemotherapy: No Hx Radiation Therapy: No Hx Palliative Cancer Treatment: No - Immunization History Date of Tetanus Vaccine: UTD Date of Influenza Vaccine: Unk Infectious Disease History: No Infectious Disease History: Reports: Hx Hepatitis, 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 - Social History Occupation: Unemployed Lives: With Family - Mother Alcohol Use: None Alcohol Amount: "drank beer awhile ago" Hx Substance Use: No Substance Use Type: Reports: None Substance Use Comment - Amount & Last Used: Xanax and Ambien Hx Tobacco Use: Yes Smoking Status (MU): Light Every Day Tobacco Smoker Type: Cigarettes Amount Used/How Often: 1/2 PPD Length of Time of Smoking/Using Tobacco: 3 years Have You Smoked in the Last Year: Yes Review of Systems Negative: Fever, Chills Negative: Erythema Negative: Sore Throat Negative: Chest Pain Negative: Shortness Of Breath, Cough Negative: Abdominal Pain, Vomiting, Nausea Negative: dysuria, hematuria Negative: Myalgia, Edema Negative: Rash Neurological: Other - Negative: Dizziness Positive: Depressed All Other Systems Reviewed And Are Negative: Yes Physical Exam - Summary Physical Exam Summary: General: Well appearing, no distress Cardiovascular: Skin is well perfused Pulmonary: No respiratory distress, no tachypnea Abdomen: Non-distended Skin: Two 4 cm long lacerations parallel on left wrist. No active bleeding. Psych: Normal affect Neuro: A&Ox3 Triage Information Reviewed: Yes Vital Signs On Initial Exam: Initial Vitals Temp Pulse Resp BP Pulse Ox 97.1 F 123 18 156/82 99 11/02/16 21:25 03/23/17 21:25 11/02/16 21:25 11/02/16 21:25 11/02/16 21:25 Vital Signs Reviewed: Yes - Anant Coma Scale Coma Scale Total: 15 Diagnostics - Vital Signs Vital Signs Temp Pulse Resp BP Pulse Ox 11/02/16 21:25 97.1 F 123 18 156/82 99 - Laboratory Lab Results: Lab Results 11/02/16 Range/Units 21:38 Urine Color Yellow Urine Appearance Cloudy Urine pH 6.0 (5-9) Ur Specific [place] 1.023 (1.010-1.030) Urine Protein Negative (Negative) Urine Ketones Negative (Negative) Urine Blood Negative (Negative) Urine Nitrate Negative (Negative) Urine Bilirubin Negative (Negative) Urine Urobilinogen Negative (Negative) Ur Leukocyte Esterase Trace H (Negative) Urine WBC (Auto) 3+(>20/hpf) H (Absent) Urine RBC (Auto) 2+(6-10/hpf) H (Absent) Ur Squamous Epith Cells Present H (Absent) Urine Bacteria 1+ H (Absent) Urine Glucose Negative (Negative) Result Diagrams: 11/02/16 23:00 11/02/16 23:00 Lab Statement: Any lab studies that have been ordered have been reviewed, and results considered in the medical decision making process. Course/Dx - Differential Dx/Clinical Impression Provider Diagnosis: Laceration of wrist, Self-harm, Suicidal ideation, Depression Discharge - Discharge Plan Condition: Good Disposition: ADMITTED TO [facility] documentation as recorded by the Eugene haskins Alok accurately reflects the service I personally performed and the decisions made by , Tj Lombardi MD.
[2016-11-04] MEDS: chlorproMAZINE TAB* 100 MG ONE ×2 (16:30→16:56)
[2016-11-04] MEDS: chlorproMAZINE TAB* 100 MG PO ONE ×2 (16:54→17:30)
[2016-11-05] MEDS ORDERED: chlorproMAZINE INJ* 25 MG/ML 2 ML (50 MG) ONE (05:52)
[2016-11-05] MEDS: chlorproMAZINE TAB* 100 MG PO PRN ×2 (06:07→16:23)
[2016-11-05] MEDS: Nicotine GUM* 2 MG PO PRN ×7 (06:10→21:54)
[2016-11-05] MEDS ORDERED: Acetaminophen TAB* 325 MG ONE (06:12)
[2016-11-05] MEDS ORDERED: Ibuprofen TAB* 400 MG ONE (06:12)
[2016-11-05] MEDS ORDERED: Acetaminophen TAB* 325 MG PO PRN (07:03)
[2016-11-05] MEDS: Topiramate TAB(*) 25 MG PO SCH ×3 (08:43→21:52)
--- NOTE | 2016-11-05 10:30 | RAD ---
INDICATION: Bilateral hand swelling COMPARISON: And x-ray dated April 04, 2016 TECHNIQUE: 2 views of each hand were obtained. FINDINGS: The adequately corticated bones are in normal alignment. No significant focal osseous abnormality or fracture is seen. Joint spaces appear maintained. IMPRESSION: Normal radiographs of the bilateral hands. If the patient's symptoms persist, follow-up imaging is recommended.
[2016-11-05] MEDS ORDERED: Mouth Piece, Nicotine* 1 EACH CARTRIDGE ONE (12:54)
[2016-11-05] MEDS: Nicotine Inhaler* 10 MG AMP INH PRN (17:25)
[2016-11-05] MEDS: Ibuprofen TAB* 400 MG PO PRN (21:54)
[2016-11-06] MEDS: Nicotine GUM* 2 MG PO PRN ×3 (00:08→09:17)
[2016-11-06] MEDS: chlorproMAZINE TAB* 100 MG PO PRN (00:20)
[2016-11-06] MEDS: Topiramate TAB(*) 25 MG PO SCH (09:17)
[2016-11-06] MEDS: Ibuprofen TAB* 400 MG PO PRN (09:17)
[2016-11-06] MEDS ORDERED: chlorproMAZINE TAB* 50 MG PO PRN (11:05)
--- NOTE | 2016-11-06 11:25 | DS ---
Subjective - Subjective Service Types: [id number] [facility] Day Mgmt simple under 30 min Discharge Date: 11/06/16 Subjective: Marly reported readiness to go home today. She affirmed she is safe and noted reduction in distress. We reviewed her medications and aftercare plan, and reconciled her medications. She said she sees no barriers to routine support, outpatient care, or emergency help if needed. She opts reasonably to continue Thorazine PRN, and take Topamax (has supply). Objective - Appearance Appearance: Obese Hygiene: Normal Grooming: Fairly Well Kept - Behavior Psychomotor Activities: Normal - Attitude and Relatedness Attitude and Relatedness: Child Like Eye Contact: Good - Speech Quality: Unpressured Latencies: Normal Quantity: Terse - Mood Patient's Decription of Mood: "Okay" - Affect Observed Affect: Non-labile Affect Consistent with: Dysphoria - mild - Thought Process Patient's Thought Process: Coherent, Goal Directed, Impoverished - Sensorium Experiencing Hallucinations: No, Sensorium is Clear - Level of Consciousness Level of Consciousness: Alert - Impulse Control Impulse Control: Poor - Insight and Judgement Insight and Judgement: Poor Treatment Course & Assessment Clinical Course & Impression: 26-year-old mentally disabled female with history of severe borderline personality disorder, chronic severe self-harm behavior, intellectual disability , periodic suicide attempt, history of traumas, consideration for posttraumatic stress disorder, and dissociative symptoms along with atypical psychosis. She presented typically with self-cutting behavior with some expression of suicidal ideation and also homicidal ideation towards her loved ones. 11/06/16: Clear for release. Marly stabilized here, in typical fashion, She transiently engaged in self harm, superficially (scratching with a toothbrush, punching luis, banging head). She bruised and abraded her knuckles Sunday but Xrays were negative for fracture. Behaviors have attenuated. Symptoms are milder - acute distress is low, she is free of current suicidal or violent ideation. She reported "voices" but has not been functioning on a psychotic level. Psychiatric medication management provided Topamax and Thorazine. We implemented her behavior modification plan. She has again improved and yield of further inpatient care is not expected ( negative therapeutic reactions and setbacks are). Acute risk of serious harm to self / other is assessed as low currently based on Marly's lower symptom burden, current intact behavioral control, and cessation of suicidal and homicidal ideation. Her condition is fluid, she is volatile, and risk status can change rapidly. She is at chronic elevated risk for impulsive violence, suicide, intentional and inadvertent harm. Clear for Discharge: Adequate Clinical Respons, Acceptable Safety Profile, Low Utility of Inpt Care Discharge Planning - Discharge Planning Discharge Plan: Outpatient Follow Up Recommendations for Continuing Care: Medication Management, Psychotherapy, Substance Abuse Counseling, Routine Metabolic Monitoring Medications: Current Medications Albuterol (Ventolin Hfa Inhaler*) 2 puff INH Q2H PRN PRN Reason: SOB/WHEEZING Chlorpromazine HCl (Thorazine Tab*) 50 mg PO Q6H PRN PRN Reason: AGITATION/ANXIETY/INSOMNIA Topiramate (Topamax(*)) 50 mg PO BID KEVIN Last Admin: 11/06/16 09:17 Dose: 50 mg Discharge Planning: Prescriptions provided for discharge [x] Yes Thorazine Follow up care details as per social work arrangements. Patient response to discharge plan: [] eager for discharge [x] agreeable with discharge plan [] ambivalent about discharge [] disagrees with discharge today
== END 2016-11-06 11:50 | disposition home or self-care (01) | DRG 753 ==
LOC: ED 21:21 → BSU 11-03 20:57
PROVIDERS: ADMIT Psychiatry & Neurology Psychiatry; ATTEND Psychiatry & Neurology Psychiatry
DX: F39 Unspecified mood [affective] disorder (principal); F60.3 Borderline personality disorder; F43.20 Adjustment disorder, unspecified; F43.10 Post-traumatic stress disorder, unspecified; R41.83 Borderline intellectual functioning
CPT/HCPCS: 36415; 80053; 80307; 80320; 80329; 81003; 81015; 84443; 84702; 85025; 87077; 87086; 99222; 99238; A9270-GY; G0480; J1200; J1630; J2060

== ENCOUNTER 2016-11-12 11:10 | Inpatient (IN) | payer OTHER, MEDICAID ==
[2016-11-12] MEDS ORDERED: diPHENhydraMINE PO* 50 MG PO ONE ×2 (12:36→16:30)
[2016-11-12] MEDS ORDERED: LORazepam TAB(*) 1 MG PO ONE ×2 (12:36→16:30)
[2016-11-12] MEDS ORDERED: Tetanus-Diptheria Toxoids* 0.5 ML SYRINGE IM ONE (12:48)
[2016-11-12 12:51] LABS: Hematocrit 41 % (35-47); Hemoglobin 13.8 g/dl (12.0-16.0); Mean Corpuscular HGB Conc 33 g/dl (31-36); Mean Corpuscular Hemoglobin 29 pg (27-31); Mean Corpuscular Volume 85 fL (80-97); Mean Platelet Volume 9 um3 (7.4-10.4); Red Blood Count 4.84 10^6/ul (4.0-5.4); Red Cell Distribution Width 15 % (10.5-15); White Blood Count 13.4 10^3/ul (3.5-10.8)
[2016-11-12] MEDS ORDERED: Lidocaine/Epineph/Tetraca SOL* (LET solution) 4 ML BTL TOPICAL ONE (12:51)
[2016-11-12 12:59] LABS: Urine Bacteria Absent (Absent); Urine Bilirubin Negative (Negative); Urine Glucose Negative (Negative); Urine Nitrite Negative (Negative)
--- NOTE | 2016-11-12 12:59 | ED ---
Psychiatric Complaint - HPI Summary HPI Summary: Pt presents w/ SI and cutting her arm with a razor blade s/p argument w/ girlfriend. Pt does not elaborate on details nor does she want to talk about it when asked. Does report she wants to hurt herself - when asked if she wants to simply inflict pain versus kill herself, she states the former. Denies HI. Her nurse reports pt told her she has not been taking her medications - requesting a "B52" by mouth/ Denies use of illegal substances and no h/o substance abuse in past records. Unclear if she is UTD w/ tetanus vaccine. She knows she needs sutures and is worried about the pain. Has had sutures before as she has a self- inflicted laceration over her Lt wrist that is healing s/p suture removal recently. Denies any other areas of pain or injury. Has not had anything to eat or drink today and when offered, declines. - History Of Current Complaint Chief Complaint: [facility]ental[facility] Time Seen by Provider: 11/12/16 11:57 Hx Obtained From: Patient Hx Last Menstrual Period: MIRENA IUD - Allergies/Home Medications Allergies/Adverse Reactions: Allergies Allergy/AdvReac Type Severity Reaction Status Date / Time Penicillin V Allergy Severe Hives Verified 11/04/16 18:08 Latex Allergy Intermediate Rash Verified 11/04/16 18:08 Lactose Intolerance (GI) Allergy Diarrhea Verified 11/04/16 18:08 glue Allergy Rash Uncoded 11/04/16 18:08 steri strips Allergy Rash Uncoded 11/04/16 18:08 PMH/Surg Hx/FS Hx/Imm Hx Previously Healthy: No - chronic MH illness w/ frequent relapse Endocrine/Hematology History: Denies: Hx Anticoagulant Therapy, Hx Diabetes - Borderline, Hx Thyroid Disease, Hx Unexplained Bleeding, Other Endocrine/Hematological Disorders Cardiovascular History: Denies: Hx Hypertension, Hx Pacemaker/ICD, Other Cardiovascular Problems/ Disorders Respiratory History: Reports: Hx Asthma Denies: Hx Chronic Obstructive Pulmonary Disease (COPD), Other Respiratory Problems/Disorders GI History: Denies: Hx Ulcer, Other GI Disorders History: Reports: Other Problems/Disorders - Urinary Retention and Herpes Denies: Hx Renal Disease Musculoskeletal History: Denies: Other Musculoskeletal History Sensory History: Reports: Hx Contacts or Glasses Denies: Hx Hearing Aid, Hx Hearing Problem, Other Sensory Impairments Opthamlomology History: Reports: Hx Contacts or Glasses Denies: Other Sensory Impairments Neurological History: 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 Denies: Hx Dementia, Hx Developmental Delay, Other Neuro Impairments/ Disorders Psychiatric History: Reports: Hx Anxiety, Hx Depression, Hx Panic Disorder, Hx Post Traumatic Stress Disorder, Hx Inpatient Treatment, Hx Community Mental Health Tx, Hx Schizophrenia - Schizoaffective Disorder, Hx Bipolar Disorder, Hx Suicide Attempt, Hx of Violent Episodes Against Others - SEE VIOLENCE HX, Hx Substance Abuse, Other Psychiatric Issues/Disorders - COGNITIVELY LIMITED, BORDERLINE PERS D/O Denies: Hx Eating Disorder - Cancer History Hx Chemotherapy: No Hx Radiation Therapy: No Hx Palliative Cancer Treatment: No - Immunization History Date of Tetanus Vaccine: UTD Date of Influenza Vaccine: Unk Infectious Disease History: No Infectious Disease History: Reports: Hx Hepatitis, 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 - Social History Occupation: Disabled Alcohol Use: None Alcohol Amount: "drank beer awhile ago" Hx Substance Use: No Substance Use Type: Reports: None Substance Use Comment - Amount & Last Used: Xanax and Ambien - last used ? but not today Hx Tobacco Use: Yes Smoking Status (MU): Current Every Day Smoker Type: Cigarettes Amount Used/How Often: 1/2 PPD Length of Time of Smoking/Using Tobacco: 3 years Have You Smoked in the Last Year: Yes Review of Systems Constitutional: Negative Negative: Chest Pain Negative: Shortness Of Breath Gastrointestinal: Negative Musculoskeletal: Negative Skin: Other - see HPI Neurological: Negative Psychological: Other - see HPI All Other Systems Reviewed And Are Negative: Yes Physical Exam Triage Information Reviewed: Yes Vital Signs On Initial Exam: Initial Vitals Temp Pulse Resp BP Pulse Ox 98.6 F 114 16 115/68 98 11/12/16 11:13 11/12/16 11:13 11/12/16 11:13 11/12/16 11:13 11/12/16 11:13 Vital Signs Reviewed: Yes Appearance: Positive: Well-Appearing, Pain Distress - emotional distress, Obese Skin: Positive: Warm - linear laceration over Rt ventral forearm x 2 - subcutaneous tissue observed - appears clean Head/Face: Positive: Normal Head/Face Inspection Respiratory/Lung Sounds: Positive: Breath Sounds Present Cardiovascular: Positive: Pulses are Symmetrical in both Upper and Lower Extremities, Tachycardia Musculoskeletal: Positive: Normal, Strength/ROM Intact Neurological: Positive: Normal, CN Intact II-III Psychiatric: Positive: Affect/Mood Appropriate - blunted; reports intent to further harm herself; denies HI, Anxious - rocking, pinching her inner thigh; poor eye contact; see HPI Procedures - Laceration/Wound Repair 1 Location: upper extremity Description: Linear Anesthesia: Local, 1.0%, Lido, Epi Length, Depth and Shape: 3cm x 4mm Betadine Prep?: Yes Laceration/Wound Explored: clean Closure: Single Layer Suture Type: Nylon - 5-0 Number of Sutures: 13 Layer Closure?: No Sterile Dressing Applied?: Yes - triple anbx + gauze wrap 2 Location: upper extremity Description: Linear Anesthesia: Local, 1.0%, Lido, Epi Length, Depth and Shape: 1.75cm x 3mm Betadine Prep?: Yes Laceration/Wound Explored: clean Closure: Single Layer Suture Type: Nylon - 5-0 Number of Sutures: 4 Layer Closure?: No Sterile Dressing Applied?: Yes - triple anbx + gauze wrap Diagnostics - Vital Signs Vital Signs Temp Pulse Resp BP Pulse Ox 11/12/16 11:13 98.6 F 114 16 115/68 98 - Laboratory Result Diagrams: 11/12/16 11:55 11/12/16 11:55 Lab Statement: Any lab studies that have been ordered have been reviewed, and results considered in the medical decision making process. Course/Dx - Differential Dx/Clinical Impression Provider Diagnosis: UNSPECIFIED MOOD D/O Discharge - Discharge Plan Condition: Improved Disposition: PSYCHIATRIC FACILITY-[facility] [place]
[2016-11-12 13:02] LABS: ALT 30 U/L (7-52); AST 21 U/L (13-39); Albumin 4.2 g/dL (3.2-5.2); Alkaline Phosphatase 73 U/L (34-104); Anion Gap 8 mmol/L (2-11); BUN/Creatinine Ratio 13.7 (8-20); Blood Urea Nitrogen 10 mg/dL (6-24); CO2 Carbon Dioxide 23 mmol/L (22-32); Calcium 9.5 mg/dL (8.6-10.3); Chloride 104 mmol/L (101-111); EGFR African American 122.1 (>60); EGFR Non-African American 94.9 (>60); Globulin 3.6 g/dL (2-4); Glucose 88 mg/dL (70-100); Potassium 3.8 mmol/L (3.5-5.0); Sodium 135 mmol/L (133-145); Total Protein 7.8 g/dL (6.4-8.9)
[2016-11-12 13:06] LABS: Acetaminophen < 15 mcg/mL; Alcohol < 10 mg/dL (<10); Salicylate < 2.50 mg/dL (<30)
[2016-11-12 13:07] LABS: Benzodiazepine Urine Screen Presumptive Positive (None Detect)
[2016-11-12 13:18] LABS: TSH (Thyroid Stimulating Horm) 0.83 mcIU/mL (0.34-5.60)
[2016-11-12] MEDS ORDERED: Haloperidol TAB* 5 MG PO ONE ×2 (15:08→16:30)
--- NOTE | 2016-11-12 16:30 | CONSULT ---
Consult Consult: Marly was evaluated by and signed a voluntary admission. She was admitted in stable condition with a diagnosis of unspecified mood disorder.
[2016-11-12] MEDS ORDERED: diPHENhydraMINE PO* 50 MG ONE (16:51)
[2016-11-12] MEDS ORDERED: Haloperidol TAB* 5 MG ONE (16:52)
[2016-11-12] MEDS ORDERED: LORazepam TAB(*) 1 MG ONE (16:52)
[2016-11-12] MEDS ORDERED: Acetaminophen TAB* 325 MG PO PRN (17:05)
[2016-11-12] MEDS ORDERED: Al Hydrox/Mg Hydrox/Simet LIQ* 30 ML UDC PO PRN (17:05)
[2016-11-12] MEDS: NICOTINE GUM 2 MG PO PRN ×2 (17:57→23:50)
[2016-11-13] MEDS ORDERED: LORazepam TAB(*) 1 MG ONE (06:30)
[2016-11-13] MEDS ORDERED: diPHENhydraMINE PO* 50 MG ONE (06:30)
[2016-11-13] MEDS ORDERED: Haloperidol TAB* 5 MG ONE (06:31)
[2016-11-13] MEDS: NICOTINE GUM 2 MG PO PRN ×2 (06:36→09:01)
[2016-11-13 07:58] VITALS: BP 125/76
[2016-11-13] MEDS ORDERED: Vitamin THERAPEUTIC TAB PO SCH (09:00)
[2016-11-13] MEDS ORDERED: Albuterol HFA INHALER* 8 gm MDI INH PRN (10:13)
[2016-11-13] MEDS ORDERED: chlorproMAZINE TAB* 50 MG PO PRN (10:13)
--- NOTE | 2016-11-13 12:41 | HP ---
PSYCHIATRIC ADMISSION HISTORY AND PHYSICAL AND DISCHARGE SUMMARY: DATE OF ADMISSION: DATE OF DICTATION: 11/13/16 IDENTIFYING DATA: Marly Pérez is a 26-year-old mentally disabled female with a history of numerous psychiatric hospitalizations, severe borderline personality disorder, borderline intellectual functioning, chronic self-harm behavior and suicidal behavior, and aggression along with atypical perceptual symptoms and dissociative symptoms. She is admitted to the psychiatric unit about 1 week after her last psychiatric discharge having presented to the emergency room by law enforcement with self-inflicted lacerations on her arms and report of suicidal and homicidal ideation. HISTORY OF PRESENT ILLNESS: Marly reports "doing okay" until the day prior to admission. She said she has not gone to the clinic for outpatient followup and she has taken Thorazine "for sleep" and has used Topamax twice a day. She had some conflict with her girlfriend and developed suicidal thoughts or self- harm urges to cut herself on the wrist. In the emergency room, she said she would cut her wrist again with suicide intent if discharged. She also expressed passive wish that her mother would and desire to kill her without a specific plan. She additionally endorsed auditory hallucinations. Today, Marly asked to go home. She says that crisis is over and that she feels better and that she "is okay." She denied ideas of harming herself or other people and reported that she would be fine going home with her mother. She denied new health problems. She denied the use of alcohol or drugs. She denied current hallucinations. She was a little sleepy at first having received sedating medications in the morning but was easily aroused and ambulating around without a problem. PREVIOUS PSYCHIATRIC HISTORY: Many psychiatric hospitalizations in the acute setting and also hospitalizations in the formerly [facility] hospitals. She has severe chronic self-injure behavior with many instances of significant self-cutting and this often required sutures. She has had periodic suicide attempts. She has had history of minor aggression in the past and frequently expresses homicidal ideation. She had had numerous medication trials with nothing fundamentally altering the course of her illness. She has generally taken many antipsychotics with off- label applications for mood instability and impulsiveness. She has reported "voices" and has had atypical psychotic features but is not felt to have a beto psychotic disorder like schizophrenia or schizoaffective disorder. Diagnostic concerns causing hospitalization stem from borderline personality disorder and easy breakdowns of coping. Additional diagnoses have included substance related disorder, dissociative disorder, psychotic disorder, posttraumatic stress disorder. She has had mental symptoms that had been activated by seizure activity in the past. Outpatient care has been with [facility] and the [facility] team. Previous medications trials included trazodone, quetiapine, mirtazapine, gabapentin, Campral, clonidine, lithium, Depakote, citalopram, and naltrexone. She has had very poor adherence with outpatient treatments and medications and has had very unstable clinical alliances. She has a pattern of severe negative therapeutic reactions in the psychiatric unit and clinically it is most appropriate for her to be stabilized briefly and discharged immediately once she is no longer a threat to herself or to others. Invariably, with more protracted hospitalizations, her behaviors decompensate based on negative therapeutic reaction or institutional behaviors. PAST MEDICAL HISTORY: Obesity, seizure condition, urinary retention, herpes zoster, asthma. OUTPATIENT MEDICATION REGIMEN: 1. Thorazine 50 mg q.6 hours p.r.n. anxiety, agitation, or insomnia. 2. Topamax 50 mg b.i.d. 3. Nicotine gum 2 mg on a p.r.n. basis for cravings. DRUG ALLERGIES: PENICILLIN. FAMILY PSYCHIATRIC HISTORY: Half siblings have a history of learning and conduct problems. SUBSTANCE USE HISTORY: Previously reported marijuana use, cocaine use, alcohol cravings, and treatment with Campral in the past. SOCIAL HISTORY: Marly was adopted and raised with half and adopted siblings. She did not graduate high school due to frequent hospitalizations. She had a long-term relationship with her girlfriend which is highly conflicted and up and down. Marly identifies as a lesbian. She has resided recently with her mother. This is a conflicting relationship with a lot of ups and downs but is proven to be necessary as primary support. Marly has been homeless at times and has "burned bridges" with supported living arrangements through [facility]. REVIEW OF SYSTEMS: Negative for recent seizures or neurological symptoms. Negative for current respiratory difficulties, chest pain, syncope, gastrointestinal symptoms, elimination symptoms including urinary retention, negative for musculoskeletal problems, or skin problems apart from scrapes and minor lacerations on her arms. ADMISSION PHYSICAL ASSESSMENT: VITAL SIGNS: Temperature is 98.8, blood pressure is 125/76, pulse is 98, respiratory rate is 16. Physical examination is deferred. Marly declined any examination citing lack of subjective need. MENTAL STATUS EXAMINATION: Obese, 18-something female, who is little poorly kempt in hospital scrub clothing. She has good hygiene. She has deep scrapes over her forearms with superficial lacerations. She has slow psychomotor activity at first but eventually is alert. She is minimally cooperative, but calm, maintains fair eye contact. Speech is terse and spontaneous. Mood is described as "okay." Affect is constricted and dysphoric. Thought process is impoverished but goal directed. Thought content negative for suicidal, homicidal, or paranoid ideation. Sensorium is clear. Insight and judgment are poor and impulse control is poor. ADMISSION LABORATORY DATA: CBC had WBC of 13.4, 19.3% lymphocytes, 9.8 absolute neutrophils. Comprehensive panel was normal. test was negative. Urinalysis had 1+ blood, 3+ leukocyte esterase, 2+ urine white blood cells, 2+ urine red blood cells, and squamous epithelial cells. Toxicology screen was negative for Tylenol, alcohol, or salicylates. Urine drug screen is positive for benzodiazepines. IMPRESSION: Marly is medically stable for psychiatric hospitalization. CLINICAL SUMMARY: A 26-year-old mentally disabled female with severe borderline personality disorder, intellectual difficulties, chronic severe self- harm behavior, periodic suicidal behavior, history of trauma, dissociative symptoms, atypical psychotic features. She presented about 1 week after her last psychiatric hospitalization with suicidal ideation, resumed self-harm, and homicidal thoughts towards her mother in the setting of a conflict with a girlfriend. She has a rapidly evolving clinical picture at this time having stabilized with forward-looking stance, absence of active suicidal or homicidal ideation, and intact behavioral control now. She has merited psychiatric hospitalization but goals of the acute care have been accomplished and she is appropriate for discharge at this time. In general, hospitalization should be kept brief for Marly as she is at high risk for negative therapeutic reactions if retained longer than necessary in the hospital. ADMISSION DIAGNOSES: Mood disorder, adjustment disorder, posttraumatic stress disorder, borderline personality disorder, borderline intellectual functioning. TREATMENT PLAN: Brief admission to the psychiatric unit. Code status is full. Safety check at 15-minute intervals. Initiate comprehensive, group, milieu, individual psychotherapeutic support. If discharge is delayed, we will implement behavior modification plan. Medication management involved resuming Thorazine on a p.r.n. basis and Topamax on a standing basis, off label, for mood symptoms. Target symptoms are agitation, active self-harm, active suicidal and homicidal ideations (these are resolved). Estimated length of stay is 1 day. Discharge planning involves coordination with appropriate aftercare. The patient's strengths are her positive help-seeking behavior and adequate baseline physical health. [id number] #: [id number] NEIL
[2016-11-13] MEDS ORDERED: Topiramate TAB(*) 25 MG PO SCH (21:00)
== END 2016-11-13 11:15 | disposition home or self-care (01) | DRG 753 ==
LOC: ED 11:10 → BSU 16:33
PROVIDERS: ADMIT Psychiatry & Neurology Psychiatry; ATTEND Psychiatry & Neurology Psychiatry
PROC: 0HQCXZZ Repair Left Upper Arm Skin, External Approach (ICD-10-PCS; principal; 2016-11-12)
PROC: 0HQBXZZ Repair Right Upper Arm Skin, External Approach (ICD-10-PCS; 2016-11-12)
DX: F39 Unspecified mood [affective] disorder (principal); R45.851 Suicidal ideations; R45.850 Homicidal ideations; F43.20 Adjustment disorder, unspecified; F43.10 Post-traumatic stress disorder, unspecified; F60.3 Borderline personality disorder; R41.83 Borderline intellectual functioning; S41.112A Laceration without foreign body of left upper arm, initial encounter; S41.111A Laceration without foreign body of right upper arm, initial encounter; X78.9XXA Intentional self-harm by unspecified sharp object, initial encounter; F17.210 Nicotine dependence, cigarettes, uncomplicated; E66.9 Obesity, unspecified; G40.909 Epilepsy, unspecified, not intractable, without status epilepticus; R33.9 Retention of urine, unspecified; J45.909 Unspecified asthma, uncomplicated; Z79.899 Other long term (current) drug therapy; Z68.32 Body mass index [BMI] 32.0-32.9, adult; Y92.9 Unspecified place or not applicable; Z88.0 Allergy status to penicillin
CPT/HCPCS: 36415; 80053; 80307; 80320; 80329; 81003; 81015; 84443; 84702; 85025; 87086; 99238; A9270-GY; G0480

== ENCOUNTER 2016-11-18 09:56 | Inpatient (IN) | payer OTHER, MEDICAID ==
[2016-11-18] MEDS ORDERED: LORazepam TAB(*) 0.5 MG PO ONE (12:29)
[2016-11-18 12:40] LABS: Hematocrit 40 % (35-47); Hemoglobin 13.4 g/dl (12.0-16.0); Mean Corpuscular HGB Conc 34 g/dl (31-36); Mean Corpuscular Hemoglobin 29 pg (27-31); Mean Corpuscular Volume 85 fL (80-97); Mean Platelet Volume 9 um3 (7.4-10.4); Red Blood Count 4.69 10^6/ul (4.0-5.4); Red Cell Distribution Width 15 % (10.5-15)
[2016-11-18 12:55] LABS: ALT 33 U/L (7-52); AST 21 U/L (13-39); Albumin 4.2 g/dL (3.2-5.2); Alkaline Phosphatase 68 U/L (34-104); Anion Gap 8 mmol/L (2-11); BUN/Creatinine Ratio 9.9 (8-20); Blood Urea Nitrogen 7 mg/dL (6-24); CO2 Carbon Dioxide 22 mmol/L (22-32); Calcium 9.2 mg/dL (8.6-10.3); Chloride 106 mmol/L (101-111); EGFR African American 126.1 (>60); Globulin 3.3 g/dL (2-4); Glucose 86 mg/dL (70-100); Potassium 3.9 mmol/L (3.5-5.0); Sodium 136 mmol/L (133-145); Total Protein 7.5 g/dL (6.4-8.9)
[2016-11-18] MEDS ORDERED: chlorproMAZINE TAB* 50 MG PO PRN (14:51)
[2016-11-18 15:05] LABS: Acetaminophen < 15 mcg/mL; Alcohol < 10 mg/dL (<10); Salicylate < 2.50 mg/dL (<30)
[2016-11-18 15:15] LABS: TSH (Thyroid Stimulating Horm) 1.01 mcIU/mL (0.34-5.60)
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
[2016-11-18] MEDS ORDERED: Haloperidol TAB* 5 MG ONE (16:33)
[2016-11-18] MEDS ORDERED: LORazepam TAB(*) 1 MG ONE (16:34)
[2016-11-18] MEDS: Nicotine GUM* 2 MG PO PRN (16:38)
[2016-11-18] MEDS ORDERED: Acetaminophen TAB* 325 MG PO PRN (17:11)
[2016-11-18] MEDS ORDERED: Al Hydrox/Mg Hydrox/Simet LIQ* 30 ML UDC PO PRN (17:11)
[2016-11-19] MEDS: Nicotine GUM* 2 MG PO PRN ×7 (06:40→23:34)
[2016-11-19] MEDS ORDERED: LORazepam TAB(*) 1 MG PO ONE (09:00)
[2016-11-19] MEDS ORDERED: diPHENhydraMINE PO* 50 MG PO ONE (09:00)
[2016-11-19] MEDS ORDERED: Haloperidol TAB* 5 MG PO ONE (09:00)
[2016-11-19] MEDS: OLANzapine TAB* 5 MG PO PRN ×2 (10:05→18:12)
[2016-11-19] MEDS: Vitamin THERAPEUTIC TAB PO SCH (10:09)
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
[2016-11-19] MEDS: Neomycin/Polym/Bacit TOP OINT* 15 GM TOPICAL SCH ×3 (14:09→21:30)
[2016-11-19] MEDS ORDERED: OLANzapine TAB*ODT* 5 MG ONE (16:09)
[2016-11-19] MEDS: diPHENhydraMINE PO* 50 MG PO PRN ×2 (16:25→22:02)
[2016-11-19 19:45] LABS: Urine Bacteria 1+ (Absent); Urine Bilirubin Negative (Negative); Urine Glucose Negative (Negative); Urine Nitrite Negative (Negative)
[2016-11-19 20:01] LABS: Benzodiazepine Urine Screen Presumptive Positive (None Detect)
[2016-11-20] MEDS ORDERED: Zolpidem TAB* 10 MG PO ONE (04:00)
[2016-11-20] MEDS: Nicotine GUM* 2 MG PO PRN ×3 (07:15→12:00)
[2016-11-20 07:47] VITALS: BP 135/91
[2016-11-20] MEDS: Vitamin THERAPEUTIC TAB PO SCH (08:41)
[2016-11-20] MEDS: OLANzapine TAB* 5 MG PO PRN (08:45)
[2016-11-20] MEDS: Neomycin/Polym/Bacit TOP OINT* 15 GM TOPICAL SCH (08:50)
--- NOTE | 2016-11-20 10:02 | PN ---
Subjective - Subjective Service Type: 85353 Hosp care 25 min moderate complexity Assessment - Assessment Inpatient DSM-IV Dx: Mood disorder. Borderline personality disorder Clinical Impression: 26-year-old mentally disabled female with history of severe borderline personality disorder, chronic severe self-harm behavior, intellectual disability , periodic suicide attempts, history of trauma, consideration for posttraumatic stress disorder, and dissociative symptoms, along with atypical psychosis. She presented with self-cutting behavior and expression of suicidal ideation on evaluation, within a week of her last psychiatric discharge. Plan - Plan Treatment Plan: Name: FILOMENA WILKINSON Birthdate: 1990 [id number] Medications: Current Medications Acetaminophen (Tylenol Tab*) 650 mg PO Q4H PRN PRN Reason: PAIN or TEMP > 101 F Al Hydrox/Mg Hydrox/Simethicone (Maalox Plus*) 30 ml PO Q4H PRN PRN Reason: INDIGESTION Diphenhydramine HCl (Benadryl Po*) 50 mg PO Q6H PRN PRN Reason: ANXIETY Last Admin: 11/19/16 22:02 Dose: 50 mg Multivitamins (Theragran Tab*) 1 tab PO DAILY [facility] Last Admin: 11/20/16 08:41 Dose: Not Given Neomycin/Polymyxin/Bacitracin (Neosporin Top Oint Tube*) 1 applic TOPICAL TID [facility] Last Admin: 11/20/16 08:50 Dose: Not Given Nicotine Polacrilex (Nicotine Gum*) 2 mg PO Q2H PRN PRN Reason: CRAVING Last Admin: 11/20/16 09:18 Dose: 2 mg Olanzapine (Zyprexa Tab*) 5 mg PO Q8HR PRN PRN Reason: AGITATION Last Admin: 11/20/16 08:45 Dose: 5 mg
--- NOTE | 2016-11-20 10:07 | DS ---
Subjective - Subjective Service Types: 14485 [facility] Day Mgmt complex over 30 min Discharge Date: 11/20/16 Subjective: Marly was a little ambivalent at first, but opted to go home today. She noted improvement in distress, levels and denied plans of harming herself or others. We reviewed her medications, I advised trying to get some regularity and consistency, and reduced changes. She said she agrees to work with clinic staff. Objective - Appearance Appearance: Obese Hygiene: Normal Grooming: Fairly Well Kept - Behavior Psychomotor Activities: Normal - Attitude and Relatedness Attitude and Relatedness: Child Like Eye Contact: Good - Speech Quality: Unpressured Latencies: Normal Quantity: Terse - Mood Patient's Decription of Mood: "Okay" - Affect Observed Affect: Non-labile Affect Consistent with: Euthymia - Thought Process Patient's Thought Process: Coherent, Goal Directed, Impoverished Thought Content: No Passive Wish, No Suicidal Planning, No Homicidal Ideation, No Paranoid Ideation - Sensorium Experiencing Hallucinations: No, Sensorium is Clear - Level of Consciousness Level of Consciousness: Alert - Impulse Control Impulse Control: Poor - Insight and Judgement Insight and Judgement: Poor Treatment Course & Assessment Clinical Course & Impression: 26-year-old mentally disabled female with history of severe borderline personality disorder, chronic severe self-harm behavior, intellectual disability , periodic suicide attempts, history of trauma, consideration for posttraumatic stress disorder, and dissociative symptoms, along with atypical psychosis. She presented with self-cutting behavior and expression of suicidal ideation on evaluation, within a week of her last psychiatric discharge. 11/20/16 Clear for release. Marly stabilized again here, with forward-looking stance, absence of ongoing active suicidal or homicidal ideation, and intact behavioral control now. Goals of the acute care have been accomplished and she is appropriate for discharge at this time. In general, hospitalization should be kept brief for Marly as she is at high risk for negative therapeutic reactions if retained longer than necessary in the hospital. We implemented her behavior modification plan. Medication management involved providing Zyprexa PRN - I am advising her to resume recent regimen of Thorazine on a p.r.n. basis and Topamax on a standing basis, off label, for mood symptoms, with goal of regularity and avoiding constant regimen changes. She compained of urinary retention - hospitalist (Dr. Arce) ordered a osborne catheter. I discussed case today with Dr. Noriega and Michael Constantino - appropriate to discontinue catheter and test her voiding. She was medically cleared for release. Marly has again made a spontaneous recovery and is back to her baseline, with dramatically reduced distress, absence of current self harm, and benign ideation. Acute risk of serious harm to self / other is assessed as low currently based on Marly's low symptom burden, current intact behavioral control, and cessation of suicidal and homicidal ideation. Her condition is fluid, she is volatile, and risk status can change rapidly. She is at chronic elevated risk for impulsive violence, suicide, intentional and inadvertent harm. Clear for Discharge: Adequate Clinical Respons, Acceptable Safety Profile, Low Utility of Inpt Care Inpatient DSM-IV Dx: Mood disorder, adjustment disorder, posttraumatic stress disorder, borderline personality disorder, borderline intellectual functioning. Discharge Planning - Discharge Planning Discharge Plan: Outpatient Follow Up Outpatient [facility] Recommendations for Continuing Care: Medication Management, Psychotherapy, Routine Metabolic Monitoring Medications: Current Medications Chlorpromazine HCl (Thorazine Tab*) 50 mg PO Q6H PRN PRN Reason: AGITATION/ANXIETY/INSOMNIA Topiramate (Topamax(*)) 50 mg PO BID KEVIN Discharge Planning: Prescriptions provided for discharge [] Yes [x] No Follow up care details as per social work arrangements. Patient response to discharge plan: [x] eager for discharge [] agreeable with discharge plan [] ambivalent about discharge [] disagrees with discharge today
[2016-11-20] MEDS ORDERED: chlorproMAZINE TAB* 50 MG PO PRN (10:17)
--- NOTE | 2016-11-20 11:35 | CONSULT ---
Subjective Date of Service: 11/20/16 Interval History: This is a 26 yo female with multiple psychiatric admissions who presented with self injurous behavior. She reported difficulty urinating yesterday and Hospitalist group was asked to consult. Sabillon catheter was placed and returned 1200 ml of urine. Patient reports that this is a chronic complaint for her. She has seen a urologist in the past but is unsure what treatment she has had. She recalls being on Flomax previously, but doesn't believe it was helpful. Patient also reports vaginal discharge which she states has a green color to it. No associated odor or itching. She states that she is in a monogamous homosexual relationship. She states that the discharge is something that is typical for her. She has an IUD in place, and amenorrheic. The Sabillon was removed this am, patient states that she "ripped it out" and she has been able to void spontaneously since. She is now complaining of some cramping lower abdominal pain after removal of the Sabillon that was not present prior. She has been afebrile. No n/v. No other acute complaints. Review of Systems - Measurements Intake and Output: Intake and Output Last 24 Hours 11/18/16 11/19/16 11/20/16 11/21/16 06:59 06:59 06:59 06:59 Weight 81.647 kg - Review of Systems General Comments: As noted above in HPI. Otherwise, negative. Objective Active Medications: Acetaminophen (Tylenol Tab*) 650 mg PO Q4H PRN PRN Reason: PAIN or TEMP > 101 F Al Hydrox/Mg Hydrox/Simethicone (Maalox Plus*) 30 ml PO Q4H PRN PRN Reason: INDIGESTION Chlorpromazine HCl (Thorazine Tab*) 50 mg PO Q6H PRN PRN Reason: AGITATION/ANXIETY/INSOMNIA Multivitamins (Theragran Tab*) 1 tab PO DAILY [facility] Last Admin: 11/20/16 08:41 Dose: Not Given Neomycin/Polymyxin/Bacitracin (Neosporin Top Oint Tube*) 1 applic TOPICAL TID [facility] Last Admin: 11/20/16 08:50 Dose: Not Given Nicotine Polacrilex (Nicotine Gum*) 2 mg PO Q2H PRN PRN Reason: CRAVING Last Admin: 11/20/16 09:18 Dose: 2 mg Topiramate (Topamax(*)) 50 mg PO BID EKVIN Vital Signs: Temp Pulse Resp BP Pulse Ox 98.6 F 119 16 135/91 99 11/20/16 07:44 11/20/16 07:44 11/20/16 07:44 11/20/16 07:44 11/20/16 07:44 Appearance: Well appearing, in NAD Neck: NL Appearance and Movements; NL JVP Respiratory: Symmetrical Chest Expansion and Respiratory Effort, Clear to Auscultation Cardiovascular: NL Sounds; No Murmurs; No JVD, RRR Abdominal: NL Sounds; No Tenderness; No Distention Extremities: No Edema Skin: No Rash or Ulcers Neurological: Alert and Oriented x 3 Result Diagrams: 11/18/16 12:25 11/18/16 12:25 Assessment/Plan - Billing This is a 26 yo female admitted to the psychiatric service who developed complaints of urinary retention. Urinary retention 1200 ml urine returned with catheter placement This is a chronic complaint for her It appears that she received a couple of doses of diphenhydramine that may have exacerbated this Recommend restarting Flomax with outpatient urology consult Could consider switching from Thorazine to a 2nd generation antipsychotic if this complaint continues Vaginal discharge With further questioning, patient states that this discharge is unchanged from what she sees chronically GC/Chl urine RNA testing ordered but still pending at this time Patient declines empiric treatment Recommend following up on the results of the GC/Chl testing Disposition: Plan for discharge by psychiatry today. No medical contraindication to discharge. See recommendations above.
[2016-11-20] MEDS ORDERED: Topiramate TAB(*) 25 MG PO SCH (21:00)
== END 2016-11-20 12:25 | disposition home or self-care (01) | DRG 753 ==
LOC: ED 09:56 → BSU 14:49
PROVIDERS: ADMIT Psychiatry & Neurology Psychiatry; ATTEND Psychiatry & Neurology Psychiatry
PROC: 0HQEXZZ Repair Left Lower Arm Skin, External Approach (ICD-10-PCS; principal; 2016-11-18)
DX: F39 Unspecified mood [affective] disorder (principal); R45.851 Suicidal ideations; G40.909 Epilepsy, unspecified, not intractable, without status epilepticus; F43.20 Adjustment disorder, unspecified; F43.10 Post-traumatic stress disorder, unspecified; F60.3 Borderline personality disorder; R41.83 Borderline intellectual functioning; E66.9 Obesity, unspecified; R33.9 Retention of urine, unspecified; S51.812A Laceration without foreign body of left forearm, initial encounter; X78.8XXA Intentional self-harm by other sharp object, initial encounter; J45.909 Unspecified asthma, uncomplicated; Z88.0 Allergy status to penicillin; Z91.040 Latex allergy status; Z68.31 Body mass index [BMI] 31.0-31.9, adult; Z91.011 Allergy to milk products; Y92.9 Unspecified place or not applicable
CPT/HCPCS: 36415; 80053; 80307; 80320; 80329; 81003; 81015; 84443; 85025; 87086; 87491; 87591; 99222; 99238; A9270-GY; G0480

== ENCOUNTER 2016-12-08 07:30 | Inpatient (IN) | payer MEDICAID, OTHER ==
[2016-12-08] MEDS ORDERED: LORazepam TAB(*) 1 MG PO ONE ×2 (08:26→15:04)
[2016-12-08] MEDS ORDERED: Haloperidol TAB* 5 MG PO ONE ×2 (08:26→15:04)
[2016-12-08 08:57] LABS: Hematocrit 41 % (35-47); Hemoglobin 13.8 g/dl (12.0-16.0); Mean Corpuscular HGB Conc 34 g/dl (31-36); Mean Corpuscular Hemoglobin 29 pg (27-31); Mean Corpuscular Volume 86 fL (80-97); Mean Platelet Volume 9 um3 (7.4-10.4); Red Blood Count 4.73 10^6/ul (4.0-5.4); Red Cell Distribution Width 15 % (10.5-15); White Blood Count 9.6 10^3/ul (3.5-10.8)
[2016-12-08] MEDS ORDERED: Nicotine GUM* 2 MG ONE (08:59)
[2016-12-08] MEDS: Nicotine GUM* 2 MG PO PRN ×5 (09:01→17:27)
[2016-12-08 09:06] LABS: ALT 35 U/L (7-52); AST 20 U/L (13-39); Albumin 4.1 g/dL (3.2-5.2); Alkaline Phosphatase 76 U/L (34-104); Anion Gap 9 mmol/L (2-11); BUN/Creatinine Ratio 11.7 (8-20); Blood Urea Nitrogen 9 mg/dL (6-24); CO2 Carbon Dioxide 20 mmol/L (22-32); Calcium 9.1 mg/dL (8.6-10.3); Chloride 107 mmol/L (101-111); EGFR African American 114.8 (>60); EGFR Non-African American 89.3 (>60); Globulin 3.4 g/dL (2-4); Glucose 86 mg/dL (70-100); Potassium 3.8 mmol/L (3.5-5.0); Sodium 136 mmol/L (133-145); Total Protein 7.5 g/dL (6.4-8.9)
[2016-12-08 09:12] LABS: Acetaminophen < 15 mcg/mL; Alcohol < 10 mg/dL (<10); Salicylate < 2.50 mg/dL (<30)
[2016-12-08 09:23] LABS: TSH (Thyroid Stimulating Horm) 1.52 mcIU/mL (0.34-5.60)
--- NOTE | 2016-12-08 11:03 | ED ---
Psychiatric Complaint - HPI Summary HPI Summary: Pt here w/ SI and HI. Reports no changes to trigger feelings, she just can't take it anymore. Switched to new med 2 days ago - does not feel this is helping. Reports she doesn't want to live anymore - will overdose on her new medication to achieve this goal. She also states she wants to hurt the babies in her mom's daycare. She cut her Rt forearm as this is a repeated behavior to cope with her anxiety. Tetanus is UTD. Denies other medical complaints. She is anxious now and requesting haldol and ativan but does not want benadryl as this makes her sleepy. She is also requesting nicotine gum. - History Of Current Complaint Chief Complaint: EDMentalHealth Time Seen by Provider: 12/08/16 07:49 Hx Obtained From: Patient Hx Last Menstrual Period: MIRENA IUD - Allergies/Home Medications Allergies/Adverse Reactions: Allergies Allergy/AdvReac Type Severity Reaction Status Date / Time Penicillin V Allergy Severe Hives Verified 12/08/16 16:59 Latex Allergy Intermediate Rash Verified 12/08/16 16:59 Lactose Intolerance (GI) Allergy Diarrhea Verified 12/08/16 16:59 glue Allergy Rash Uncoded 12/08/16 16:59 steri strips Allergy Rash Uncoded 12/08/16 16:59 Home Medications: Home Medications Brexpiprazole [Rexulti] 0.5 mg PO DAILY 12/08/16 [History Confirmed 12/08/16] traZODone TAB* [Desyrel TAB*] 50 mg PO QPM 12/08/16 [History Confirmed 12/08/16] PMH/Surg Hx/FS Hx/Imm Hx Previously Healthy: Yes Endocrine/Hematology History: Denies: Hx Anticoagulant Therapy, Hx Blood Disorders, Hx Diabetes - Borderline, Hx Thyroid Disease, Hx Unexplained Bleeding, Other Endocrine/ Hematological Disorders Cardiovascular History: Denies: Hx Hypertension, Hx Pacemaker/ICD, Other Cardiovascular Problems/ Disorders Respiratory History: Reports: Hx Asthma Denies: Hx Chronic Obstructive Pulmonary Disease (COPD), Other Respiratory Problems/Disorders GI History: Denies: Hx Ulcer, Other GI Disorders History: Reports: Other Problems/Disorders - Urinary Retention and Herpes Denies: Hx Renal Disease Musculoskeletal History: Denies: Other Musculoskeletal History Sensory History: Reports: Hx Contacts or Glasses Denies: Hx Deafness, Hx Hearing Aid, Hx Hearing Problem, Other Sensory Impairments Opthamlomology History: Reports: Hx Contacts or Glasses Denies: Other Sensory Impairments Neurological History: Reports: Hx Developmental Delay, Hx Headaches, Hx Seizures - Psuedoseizures Denies: Hx Dementia, Other Neuro Impairments/Disorders Psychiatric History: Reports: Hx Anxiety, Hx Attention Deficit Hyperactivity Disorder, Hx Depression, Hx Panic Disorder, Hx Post Traumatic Stress Disorder, Hx Inpatient Treatment, Hx Community Mental Health Tx, Hx Schizophrenia - Schizoaffective Disorder, Hx Bipolar Disorder, Hx Suicide Attempt, Hx of Violent Episodes Against Others - SEE VIOLENCE HX, Hx Substance Abuse, Other Psychiatric Issues/Disorders - COGNITIVELY LIMITED, BORDERLINE PERS D/O Denies: Hx Eating Disorder - Cancer History Hx Chemotherapy: No Hx Radiation Therapy: No Hx Palliative Cancer Treatment: No - Immunization History Date of Tetanus Vaccine: UTD Date of Influenza Vaccine: Unk Infectious Disease History: No Infectious Disease History: Reports: Hx Hepatitis, 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 - Social History Occupation: Unemployed Lives: With Family Alcohol Use: None Alcohol Amount: "drank beer awhile ago" Hx Substance Use: No Substance Use Type: Reports: None Substance Use Comment - Amount & Last Used: Xanax and Ambien Hx Tobacco Use: Yes Smoking Status (MU): Current Every Day Smoker Type: Cigarettes Amount Used/How Often: 1/2 PPD Length of Time of Smoking/Using Tobacco: 3 years Have You Smoked in the Last Year: Yes Review of Systems Constitutional: Negative Eyes: Negative ENT: Negative Cardiovascular: Negative Respiratory: Negative Gastrointestinal: Negative Positive: no symptoms reported Musculoskeletal: Negative Skin: Other - see HPI Neurological: Negative Psychological: Other - see HPI All Other Systems Reviewed And Are Negative: Yes Physical Exam Triage Information Reviewed: Yes Vital Signs On Initial Exam: Initial Vitals Temp Pulse Resp BP Pulse Ox 98.1 F 114 18 145/88 99 12/08/16 07:32 12/08/16 07:32 12/08/16 07:32 12/08/16 07:32 12/08/16 07:32 Vital Signs Reviewed: Yes Appearance: Positive: Well-Appearing, No Pain Distress, Obese Skin: Positive: Warm - 3 linear lacerations over Rt dorsal distal forearm - most proximal is deepest with intermittent bleeding - 2 more distal wound are barley through subcutaneous tissue - no active bleeding. She has scabbed more superficial linear lacerations here as well. Multiple linear scars over B/L forearms Head/Face: Positive: Normal Head/Face Inspection Eyes: Positive: Normal, EOMI ENT: Positive: Hearing grossly normal, Pharynx normal Respiratory/Lung Sounds: Positive: Breath Sounds Present Cardiovascular: Positive: Normal, Pulses are Symmetrical in both Upper and Lower Extremities Musculoskeletal: Positive: Normal, Strength/ROM Intact Neurological: Positive: Normal, Sensory/Motor Intact, Alert, Oriented to Person Place, Time, CN Intact II-III Psychiatric: Positive: Other - flat affect - SI/HI; pressured speech; calm and cooperative Procedures - Laceration/Wound Repair 1 Location: upper extremity - Lt dorsal distal forearm Description: Linear Anesthesia: Local, Lido, Epi Length, Depth and Shape: 1.75cm x 2.5mm - oozing blood Betadine Prep?: Yes Irrigated w/ Saline (ccs): 50 Laceration/Wound Explored: clean Closure: Single Layer Suture Type: Nylon - 5-0 Number of Sutures: 3 Layer Closure?: No Sterile Dressing Applied?: Yes - triple anbx + tegaderm + telfa cover and tape 2 Location: upper extremity - Lt dorsal distal wrist Description: Linear Length, Depth and Shape: 1.5cm x 2mm - no bleeding Betadine Prep?: Yes Irrigated w/ Saline (ccs): 50 Laceration/Wound Explored: clean Closure: Skin Adhesive, SteriStrips Layer Closure?: No Sterile Dressing Applied?: Yes - telfa dressing + tape 3 Location: upper extremity - Lt dorsal distal wrist Description: Linear Length, Depth and Shape: 1.5cm x 2mm - no bleeding Laceration/Wound Explored: clean Closure: Skin Adhesive, SteriStrips Layer Closure?: No Sterile Dressing Applied?: Yes - telfa dressing Diagnostics - Vital Signs Vital Signs Temp Pulse Resp BP Pulse Ox 12/08/16 08:39 18 12/08/16 08:00 98.1 F 114 20 145/88 98 12/08/16 07:32 98.1 F 114 18 145/88 99 - Laboratory Lab Results: Lab Results 12/08/16 12/08/16 Range/Units 08:05 08:05 WBC 9.6 (3.5-10.8) 10^3/ul RBC 4.73 (4.0-5.4) 10^6/ul Hgb 13.8 (12.0-16.0) g/dl Hct 41 (35-47) % MCV 86 (80-97) fL MCH 29 (27-31) pg MCHC 34 (31-36) g/dl RDW 15 (10.5-15) % Plt Count 320 (150-450) 10^3/ul MPV 9 (7.4-10.4) um3 Neut % (Auto) 62.0 (38-83) % Lymph % (Auto) 27.3 (25-47) % Sebastian % (Auto) 8.2 (1-9) % Eos % (Auto) 1.9 (0-6) % Baso % (Auto) 0.6 (0-2) % Absolute Neuts (auto) 6.0 (1.5-7.7) 10^3/ul Absolute Lymphs (auto) 2.6 (1.0-4.8) 10^3/ul Absolute Monos (auto) 0.8 (0-0.8) 10^3/ul Absolute Eos (auto) 0.2 (0-0.6) 10^3/ul Absolute Basos (auto) 0.1 (0-0.2) 10^3/ul Absolute Nucleated RBC 0 10^3/ul Nucleated RBC % 0 Sodium 136 (133-145) mmol/L Potassium 3.8 (3.5-5.0) mmol/L Chloride 107 (101-111) mmol/L Carbon Dioxide 20 L (22-32) mmol/L Anion Gap 9 (2-11) mmol/L BUN 9 (6-24) mg/dL Creatinine 0.77 (0.51-0.95) mg/dL Est GFR ( Amer) 114.8 (>60) Est GFR (Non-Af Amer) 89.3 (>60) BUN/Creatinine Ratio 11.7 (8-20) Glucose 86 (70-100) mg/dL Calcium 9.1 (8.6-10.3) mg/dL Total Bilirubin 0.30 (0.2-1.0) mg/dL AST 20 (13-39) U/L ALT 35 (7-52) U/L Alkaline Phosphatase 76 (34-104) U/L Total Protein 7.5 (6.4-8.9) g/dL Albumin 4.1 (3.2-5.2) g/dL Globulin 3.4 (2-4) g/dL Albumin/Globulin Ratio 1.2 (1-3) TSH 1.52 (0.34-5.60) mcIU/mL Salicylates < 2.50 (<30) mg/dL Acetaminophen < 15 mcg/mL Serum Alcohol < 10 (<10) mg/dL Result Diagrams: 12/08/16 08:05 12/08/16 08:05 Lab Statement: Any lab studies that have been ordered have been reviewed, and results considered in the medical decision making process. Course/Dx - Course Course Of Treatment: SI/HI w/ self inflicted lacerations. Closed w/ sutures and steristrips. Pt has been cleared for mental health evaluation. She is calm and cooperative while under my care. TEAGAN titus performed and pending psychiatrist evaluation. - Differential Dx/Clinical Impression Provider Diagnosis: Suicidal intent, Homicidal ideations, Lacerations of multiple sites of right arm - Physician Notifications Discussed Care Of Patient With: Alek CANDELARIA evalulator Discharge - Discharge Plan Condition: Improved Disposition: ADMITTED TO [facility]
[2016-12-08] MEDS ORDERED: hydrOXYzine HCL TAB* 50 MG PO ONE (13:06)
[2016-12-08] MEDS ORDERED: hydrOXYzine HCL TAB* 50 MG ONE (13:07)
[2016-12-08] MEDS ORDERED: Acetaminophen TAB* 325 MG PO PRN (17:54)
[2016-12-08] MEDS ORDERED: Al Hydrox/Mg Hydrox/Simet LIQ* 30 ML UDC PO PRN (17:54)
[2016-12-08] MEDS: diPHENhydraMINE PO* 50 MG PO PRN (18:10)
[2016-12-08] MEDS: Haloperidol TAB* 5 MG PO PRN (18:10)
[2016-12-08] MEDS: LORazepam TAB(*) 1 MG PO PRN (18:10)
[2016-12-09] MEDS: diPHENhydraMINE PO* 50 MG PO PRN ×2 (03:35→09:35)
[2016-12-09] MEDS: LORazepam TAB(*) 1 MG PO PRN ×2 (03:35→09:36)
[2016-12-09] MEDS: Nicotine GUM* 2 MG PO PRN ×5 (03:35→12:26)
[2016-12-09] MEDS: Haloperidol TAB* 5 MG PO PRN ×2 (03:35→09:35)
[2016-12-09] MEDS ORDERED: Vitamin THERAPEUTIC TAB PO SCH (09:00)
[2016-12-09 10:04] VITALS: BP 144/71
--- NOTE | 2016-12-09 10:43 | HP ---
PSYCHIATRIC ADMISSION HISTORY AND PHYSICAL AND DISCHARGE SUMMARY: DATE OF ADMISSION: 12/08/16 IDENTIFYING DATA: Marly Pérez is a 26-year-old mentally disabled female with a history of many psychiatric hospitalizations, severe borderline personality disorder, chronic injury behavior, borderline intellectual functioning, a history of suicidal behavior and aggression, atypical perceptual symptoms and dissociative symptoms. She is admitted to the psychiatric unit about 3 weeks after her last psychiatric admission after she was brought to the hospital emergency room due to concern over self-cutting. Here in the emergency room, she reported suicidal ideation with a plan to overdose and also ideas of killing her sister's children who live in the same household as her. HISTORY OF PRESENT ILLNESS: Marly reports "doing really well" for most of the time since her last psychiatric discharge few weeks ago. She stated she has been at the clinic and started Rexulti and is only taking that and trazodone and doing fine. She denies use of alcohol or drugs. She denies having to use Thorazine for agitation. She reported no episodes of self-cutting in the interval since discharge and prior to the day of her admission nor any suicide attempts, violence or homicidal thoughts. She cites stressor of anticipating a move to [place] where she will be residing in a halfway, this was arranged apparently through [facility]. She said she is agreeable with it, but nervous about it. She reported having an argument with her mother and said her mom yelled at her for something, this prompted her to be upset and she made lacerations in her arm with a razor. She denies any current urges to harm herself, current suicidal thoughts and current ideas of harming anyone. She affirms she is safe in her household. She said she is eager to go home today and anticipated getting along fine with her mother with whom she was going to get on phone this morning. Nursing staff confirmed with mother that she is supportive of Marly's return home today. Marly was open to be idea of following up at the clinic and although she said she could tolerate further stay in the hospital, she felt she did not need it all. She denied new health problems or any symptoms of a major mood episode. Denied perceptual disturbances. This is an updated history and physical entered by Dr. Albert associated with Marly's 11/18/16 admission to our unit, please see that report for details of her prior history. MENTAL STATUS EXAMINATION: Obese, 18 something female with normal hygiene, decreased psychomotor activity. She was sleeping on approach but awoke and was cooperative with the evaluation, maintains poor eye contact. Speech is terse and nonspontaneous. Mood is described as "okay." Affect is stable and neutral. Thought process is coherent, goal directed but somewhat impoverished. Thought content negative for current suicidal, homicidal, or paranoid ideation. Sensorium is clear. She is alert and oriented x3. Insight and judgment is poor and impulse control is poor chronically. UPDATED PHYSICAL ASSESSMENT: Vital signs at presentation; temperature 98.1, blood pressure 145/88, pulse 114, respiratory rate 20. ADMISSION LABORATORY STUDIES: CBC was normal. Comprehensive panel had carbon dioxide of 20. test was negative. Urinalysis had trace leukocyte esterase, squamous epithelial cells and 1+ bacteria. Toxicology screen was negative for Tylenol, alcohol or salicylates. Urine drug screen was not done. UPDATED REVIEW OF SYSTEMS: Negative for seizures or neurological symptoms, respiratory difficulties, chest pain, syncope, gastrointestinal distress or elimination problems, musculoskeletal problems, or skin problems apart from wounds in early stages of healing. No indication for updated physical examination and Marly is medically stable for psychiatric hospitalization. CLINICAL SUMMARY: A 26-year-old mentally disabled female with severe borderline personality disorder, intellectual deficits, chronic persistent self- harm behavior, suicidal behavior, aggression, periodic homicidal and violent ideation along with history of trauma or dissociative symptoms and atypical psychotic symptoms. She returned to the hospital about 3 weeks after her last psychiatric discharge having cut herself again after an argument with her mother. She expressed suicidal and homicidal ideation and her hospitalization was appropriate to interrupt the crisis and stabilize her behavior and state - this has been then accomplished. She is in a calm state and in behavioral control with dramatically reduced symptom burden. She has attained a spontaneous recovery which is the optimal result for psychiatric hospitalization. It is appropriate to plan her discharge now. On occasion, Marly has a rapidly evolving clinical course like this. At other times, she develops further problems on the psychiatric unit with negative therapeutic reactions and lack of progress. Risk concern centered on suicidal and homicidal ideation. Acute risk is assessed as low based on her calm state, benign current ideation and demeanor, and low symptom burden along with the apparent correction of acute impairing symptoms. Marly is at high chronic risk for impulsive violence and high chronic risk for suicide based on her historic actions and her clinical diagnostic profile. ADMISSION DIAGNOSES: 1. Adjustment disorder, not otherwise specified. 2. Mood disorder. 3. Posttraumatic stress disorder. 4. Borderline personality disorder. 5. Borderline intellectual functioning. TREATMENT PLAN: Brief admission to the psychiatric unit. Code status is full. Safety check at 15-minute intervals. Initiate comprehensive, group, milieu, and individual psychotherapeutic support along with behavior modification program oriented towards correcting self-harm behaviors. Medication management will involve continuing the outpatient medication regimen. Estimated length of stay is 1 day. Target symptoms are agitation, suicidal and homicidal ideation, active self harm, behavioral dysregulation (these were all resolved). DISCHARGE PLANNING: Ongoing followup at [facility], and continuing the outpatient regimen of medicine (above). The patient's strengths are her positive help-seeking behavior and adequate baseline physical health. [id number]/[facility] #: [id number] NEIL
== END 2016-12-09 14:05 | disposition home or self-care (01) | DRG 755 ==
LOC: ED 07:30 → BSU 16:35
PROVIDERS: ADMIT Psychiatry & Neurology Psychiatry; ATTEND Psychiatry & Neurology Psychiatry
PROC: 0HQDXZZ Repair Right Lower Arm Skin, External Approach (ICD-10-PCS; principal; 2016-12-08)
DX: F43.20 Adjustment disorder, unspecified (principal); F25.9 Schizoaffective disorder, unspecified; F32.9 Major depressive disorder, single episode, unspecified; F39 Unspecified mood [affective] disorder; F43.10 Post-traumatic stress disorder, unspecified; F60.3 Borderline personality disorder; R41.83 Borderline intellectual functioning; E66.9 Obesity, unspecified; Z88.0 Allergy status to penicillin; E73.9 Lactose intolerance, unspecified; Z91.048 Other nonmedicinal substance allergy status; Z91.040 Latex allergy status; J45.909 Unspecified asthma, uncomplicated; R62.50 Unspecified lack of expected normal physiological development in childhood; F90.9 Attention-deficit hyperactivity disorder, unspecified type; F41.0 Panic disorder [episodic paroxysmal anxiety]; Z81.8 Family history of other mental and behavioral disorders; Z56.0 Unemployment, unspecified; F17.210 Nicotine dependence, cigarettes, uncomplicated; X78.9XXA Intentional self-harm by unspecified sharp object, initial encounter; Y92.9 Unspecified place or not applicable; S51.811A Laceration without foreign body of right forearm, initial encounter; Z68.32 Body mass index [BMI] 32.0-32.9, adult; Z81.1 Family history of alcohol abuse and dependence
CPT/HCPCS: 36415; 80053; 80320; 80329; 84443; 84702; 85025; 99238; A9270-GY; G0480

== ENCOUNTER 2016-12-10 11:10 | Emergency (ER) | payer MEDICAID ==
[2016-12-10 12:33] LABS: Hematocrit 40 % (35-47); Hemoglobin 13.3 g/dl (12.0-16.0); Mean Corpuscular HGB Conc 34 g/dl (31-36); Mean Corpuscular Hemoglobin 29 pg (27-31); Mean Corpuscular Volume 86 fL (80-97); Mean Platelet Volume 10 um3 (7.4-10.4); Red Blood Count 4.64 10^6/ul (4.0-5.4); Red Cell Distribution Width 15 % (10.5-15); White Blood Count 14.6 10^3/ul (3.5-10.8)
[2016-12-10 12:43] LABS: ALT 32 U/L (7-52); AST 23 U/L (13-39); Albumin 4.3 g/dL (3.2-5.2); Alkaline Phosphatase 69 U/L (34-104); Anion Gap 7 mmol/L (2-11); BUN/Creatinine Ratio 14.3 (8-20); Blood Urea Nitrogen 12 mg/dL (6-24); CO2 Carbon Dioxide 24 mmol/L (22-32); Calcium 9.3 mg/dL (8.6-10.3); Chloride 105 mmol/L (101-111); EGFR African American 103.8 (>60); EGFR Non-African American 80.7 (>60); Globulin 3.6 g/dL (2-4); Glucose 97 mg/dL (70-100); Potassium 4.1 mmol/L (3.5-5.0); Sodium 136 mmol/L (133-145); Total Protein 7.9 g/dL (6.4-8.9)
[2016-12-10 12:50] LABS: Acetaminophen < 15 mcg/mL; Alcohol < 10 mg/dL (<10); Salicylate < 2.50 mg/dL (<30)
--- NOTE | 2016-12-10 12:56 | ED ---
Substance Abuse/Use - HPI Summary HPI Summary: Patient is a 26yo F who is seen frequently in the ED for psychiatric complaints and evaluation. She arrives today after an alleged overdose of Trazodone. She originally takes 100mg at bedtime and today she took what she is guessing 14 - 50mg tablets approximately 4 hours ago. She states she is feeling fatigued, but it otherwise feeling OK. She notes that she has had more recent stress d/t recent knowledge of having to move to a residential. She is seen by Hope Cerda who recommends she goes to a residential d/t HI about her family who she lives with. She is having increased HI towards her family despite her medication and counseling. She denies self cutting today, although has multiple old cutting wounds and newer (2 day old) wounds from self cutting over her forearms bilaterally. She denies pain. She was seen 2 days ago in the ED and kept overnight, however she states she was sent home the following day despite telling psych counselors she was "not ready." She requests to be admitted. - History Of Current Complaint Chief Complaint: EDOverdose Stated Complaint: MENTAL HEALTH Time Seen by Provider: 12/10/16 11:12 Hx Obtained From: Patient Hx Last Menstrual Period: MIRENA IUD ?: No Onset/Duration of Drug/ETOH Abuse: Minutes Ingestion History: Type/Name Of Drug - trazodone, Amount Ingested - 14 total - at 50mg each, Approximate Time Of Ingestion - 8:30a Overdose Characteristics: Oral Timing Of Abuse: Binge Use Severity Initially: Moderate Severity Currently: Moderate Character: Depressed, Angry, Frustrated Aggravating Factor(s): Recent Stress Alleviating Factor(s): Medication, Counseling Associated Signs And Symptoms: Sleep Disturbance Related Hx: Homicidal: Thoughts, Homicidal: Plan, Suicidal: Prior Attempt(s), Suicidal: Thoughts, Suicidal: Plan, Suicidal: Gesture - Risk Factor(s) Completed Suicide Risk Factors: White [place] - Allergies/Home Medications Allergies/Adverse Reactions: Allergies Allergy/AdvReac Type Severity Reaction Status Date / Time Penicillin V Allergy Severe Hives Verified 12/08/16 16:59 Latex Allergy Intermediate Rash Verified 12/08/16 16:59 Lactose Intolerance (GI) Allergy Diarrhea Verified 12/08/16 16:59 glue Allergy Rash Uncoded 12/08/16 16:59 steri strips Allergy Rash Uncoded 12/08/16 16:59 PMH/Surg Hx/FS Hx/Imm Hx Previously Healthy: Yes Endocrine/Hematology History: Reports: Hx Unexplained Bleeding Denies: Hx Anticoagulant Therapy, Hx Blood Disorders, Hx Thyroid Disease, Other Endocrine/Hematological Disorders Comment Only: Hx Diabetes - Borderline Cardiovascular History: Denies: Hx Hypertension, Hx Pacemaker/ICD, Other Cardiovascular Problems/ Disorders Respiratory History: Reports: Hx Asthma Denies: Hx Chronic Obstructive Pulmonary Disease (COPD), Other Respiratory Problems/Disorders GI History: Denies: Hx Ulcer, Other GI Disorders History: Reports: Other Problems/Disorders - Urinary Retention and Herpes Denies: Hx Renal Disease Musculoskeletal History: Denies: Other Musculoskeletal History Sensory History: Reports: Hx Contacts or Glasses Denies: Hx Deafness, Hx Hearing Aid, Hx Hearing Problem, Other Sensory Impairments Opthamlomology History: Reports: Hx Contacts or Glasses Denies: Other Sensory Impairments Neurological History: Reports: Hx Developmental Delay, Hx Headaches, Hx Seizures - Psuedoseizures Denies: Hx Dementia, Other Neuro Impairments/Disorders Psychiatric History: Reports: Hx Anxiety, Hx Attention Deficit Hyperactivity Disorder, Hx Depression, Hx Panic Disorder, Hx Post Traumatic Stress Disorder, Hx Inpatient Treatment, Hx Community Mental Health Tx, Hx Schizophrenia - Schizoaffective Disorder, Hx Bipolar Disorder, Hx Suicide Attempt, Hx of Violent Episodes Against Others - SEE VIOLENCE HX, Hx Substance Abuse, Other Psychiatric Issues/Disorders - COGNITIVELY LIMITED, BORDERLINE PERS D/O Denies: Hx Eating Disorder - Cancer History Hx Chemotherapy: No Hx Radiation Therapy: No Hx Palliative Cancer Treatment: No - Immunization History Date of Tetanus Vaccine: UTD Date of Influenza Vaccine: Unk Hx Pertussis Vaccination: No Immunizations Up to Date: No Infectious Disease History: No Infectious Disease History: Reports: Hx Hepatitis, 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 - Social History Occupation: Unemployed Lives: With Family Alcohol Use: None Alcohol Amount: "drank beer awhile ago" Hx Substance Use: No Substance Use Type: Reports: None Substance Use Comment - Amount & Last Used: Xanax and Ambien Hx Tobacco Use: Yes Smoking Status (MU): Current Every Day Smoker Type: Cigarettes Amount Used/How Often: 1/2 PPD Length of Time of Smoking/Using Tobacco: 3 years Have You Smoked in the Last Year: Yes Review of Systems Positive: Fatigue Eyes: Negative Cardiovascular: Negative Respiratory: Negative Gastrointestinal: Negative Positive: no symptoms reported, see HPI Musculoskeletal: Negative Psychological: Normal All Other Systems Reviewed And Are Negative: Yes Physical Exam Triage Information Reviewed: Yes Vital Signs On Initial Exam: Initial Vitals Temp Pulse Resp BP Pulse Ox 97.1 F 93 20 120/74 95 12/10/16 11:16 12/10/16 11:16 12/10/16 11:16 12/10/16 11:16 12/10/16 11:16 Vital Signs Reviewed: Yes Appearance: Positive: Well-Appearing, No Pain Distress, Well-Nourished Skin: Positive: Warm, Skin Color Reflects Adequate Perfusion, Other - self- cutting lacerations to the forearms bilaterally, old and new Head/Face: Positive: Normal Head/Face Inspection Eyes: Positive: OKSANA, Conjunctiva Clear Neck: Positive: Supple, No Lymphadenopathy Respiratory/Lung Sounds: Positive: Clear to Auscultation, Breath Sounds Present Cardiovascular: Positive: Normal, RRR, Pulses are Symmetrical in both Upper and Lower Extremities Musculoskeletal: Positive: Normal, Strength/ROM Intact Neurological: Positive: Sensory/Motor Intact, Alert, Oriented to Person Place, Time, Speech Normal Psychiatric: Positive: Affect/Mood Appropriate, Anxious, Depressed - Anant Coma Scale Coma Scale Total: 15 Diagnostics - Vital Signs Vital Signs Temp Pulse Resp BP Pulse Ox 12/10/16 11:16 97.1 F 93 20 120/74 95 - Laboratory Lab Results: Lab Results 12/10/16 12/10/16 Range/Units 11:35 11:35 WBC 14.6 H (3.5-10.8) 10^3/ul RBC 4.64 (4.0-5.4) 10^6/ul Hgb 13.3 (12.0-16.0) g/dl Hct 40 (35-47) % MCV 86 (80-97) fL MCH 29 (27-31) pg MCHC 34 (31-36) g/dl RDW 15 (10.5-15) % Plt Count 344 (150-450) 10^3/ul MPV 10 (7.4-10.4) um3 Neut % (Auto) 76.3 (38-83) % Lymph % (Auto) 15.8 L (25-47) % [place] % (Auto) 6.7 (1-9) % Eos % (Auto) 0.6 (0-6) % Baso % (Auto) 0.6 (0-2) % Absolute Neuts (auto) 11.2 H (1.5-7.7) 10^3/ul Absolute Lymphs (auto) 2.3 (1.0-4.8) 10^3/ul Absolute Monos (auto) 1.0 H (0-0.8) 10^3/ul Absolute Eos (auto) 0.1 (0-0.6) 10^3/ul Absolute Basos (auto) 0.1 (0-0.2) 10^3/ul Absolute Nucleated RBC 0.02 10^3/ul Nucleated RBC % 0.1 Sodium 136 (133-145) mmol/L Potassium 4.1 (3.5-5.0) mmol/L Chloride 105 (101-111) mmol/L Carbon Dioxide 24 (22-32) mmol/L Anion Gap 7 (2-11) mmol/L BUN 12 (6-24) mg/dL Creatinine 0.84 (0.51-0.95) mg/dL Est GFR ( Amer) 103.8 (>60) Est GFR (Non-Af Amer) 80.7 (>60) BUN/Creatinine Ratio 14.3 (8-20) Glucose 97 (70-100) mg/dL Calcium 9.3 (8.6-10.3) mg/dL Total Bilirubin 0.30 (0.2-1.0) mg/dL AST 23 (13-39) U/L ALT 32 (7-52) U/L Alkaline Phosphatase 69 (34-104) U/L Total Protein 7.9 (6.4-8.9) g/dL Albumin 4.3 (3.2-5.2) g/dL Globulin 3.6 (2-4) g/dL Albumin/Globulin Ratio 1.2 (1-3) TSH Pending Salicylates < 2.50 (<30) mg/dL Acetaminophen < 15 mcg/mL Serum Alcohol < 10 (<10) mg/dL Result Diagrams: 12/10/16 11:35 12/10/16 11:35 Lab Statement: Any lab studies that have been ordered have been reviewed, and results considered in the medical decision making process. Course/Dx - Course Course Of Treatment: [facility] evaluation. Patient allegedly ingested 14 - 50mg trazodone. Poison control called and made aware. Suggested 6 hour telemetry and fluids if pressure begins to drop. Patient requesting gingerale and crackers stating she feels OK. She is cleared for [facility]. - Diagnoses Differential Diagnosis/HQI/PQRI: Positive: Anxiety, Depression, Drug Abuse, Drug Withdrawal Provider Diagnoses: Overdose Discharge - Discharge Plan Condition: Stable Disposition: OTHER Discharge Disposition Comment: [facility]
[2016-12-10 13:04] LABS: TSH (Thyroid Stimulating Horm) 1.14 mcIU/mL (0.34-5.60)
[2016-12-10] MEDS ORDERED: Nicotine GUM* 2 MG ONE (13:33)
[2016-12-10] MEDS: Nicotine GUM* 2 MG PO PRN ×4 (13:35→19:50)
[2016-12-10 13:43] VITALS: BP 139/67
[2016-12-10 14:58] LABS: Urine Bacteria Absent (Absent); Urine Bilirubin Negative (Negative); Urine Glucose Negative (Negative); Urine Nitrite Negative (Negative)
[2016-12-10 15:07] LABS: Benzodiazepine Urine Screen Presumptive Positive (None Detect)
[2016-12-10] MEDS ORDERED: LORazepam TAB(*) 1 MG PO ONE (17:43)
[2016-12-10] MEDS ORDERED: LORazepam TAB(*) 1 MG ONE (17:45)
--- NOTE | 2016-12-10 20:11 | PN ---
Progress Note - Progress Note Note: Patient care was assumed from Tasneem Childers PA-C. Social work has discussed patient with Dr. Patino, psychiatrist, and it was determined that the patient is able to go home. The patient denies SI and is alert and oriented. She has been alert through her entire visit. This patient was discussed with Dr. Toro and Dr. Lyn, ED attending physicians. She will be discharged home to her mother's house, where she lives.
== END 2016-12-10 20:25 | disposition home or self-care (01) ==
LOC: ED 11:10
DX: T43.214A Poisoning by selective serotonin and norepinephrine reuptake inhibitors, undetermined, initial encounter (principal); R53.83 Other fatigue; F17.210 Nicotine dependence, cigarettes, uncomplicated; Y92.9 Unspecified place or not applicable
CPT/HCPCS: 36415; 80053; 80307; 80320; 80329; 81003; 81015; 84443; 85025; 87077; 87086; 93005; 99284; A9270-GY; G0480

== ENCOUNTER 2016-12-12 21:07 | Inpatient (IN) | payer MEDICAID, OTHER ==
[2016-12-12 21:47] LABS: Hematocrit 40 % (35-47); Hemoglobin 13.3 g/dl (12.0-16.0); Mean Corpuscular HGB Conc 34 g/dl (31-36); Mean Corpuscular Hemoglobin 29 pg (27-31); Mean Corpuscular Volume 86 fL (80-97); Mean Platelet Volume 9 um3 (7.4-10.4); Red Blood Count 4.66 10^6/ul (4.0-5.4); Red Cell Distribution Width 15 % (10.5-15); White Blood Count 15.5 10^3/ul (3.5-10.8)
[2016-12-12 22:02] LABS: Albumin 4.2 g/dL (3.2-5.2); Anion Gap 6 mmol/L (2-11); BUN/Creatinine Ratio 15.2 (8-20); Blood Urea Nitrogen 12 mg/dL (6-24); CO2 Carbon Dioxide 24 mmol/L (22-32); Calcium 9.2 mg/dL (8.6-10.3); Chloride 105 mmol/L (101-111); EGFR African American 111.4 (>60); EGFR Non-African American 86.7 (>60); Glucose 95 mg/dL (70-100); Potassium 3.3 mmol/L (3.5-5.0); Sodium 135 mmol/L (133-145); Total Protein 7.6 g/dL (6.4-8.9)
[2016-12-12 22:03] LABS: ALT 23 U/L (7-52); AST 16 U/L (13-39); Alkaline Phosphatase 71 U/L (34-104); Globulin 3.4 g/dL (2-4)
[2016-12-12 22:21] LABS: Acetaminophen < 15 mcg/mL; Alcohol < 10 mg/dL (<10); Salicylate < 2.50 mg/dL (<30)
[2016-12-12 22:31] LABS: TSH (Thyroid Stimulating Horm) 6.68 mcIU/mL (0.34-5.60)
[2016-12-13] MEDS ORDERED: ALPRAZolam TAB* 0.5 MG PO ONE (01:05)
[2016-12-13] MEDS ORDERED: Haloperidol INJ IV/IM* 5 MG/ML AMP IM ONE (02:33)
[2016-12-13] MEDS ORDERED: diPHENhydraMINE IV* 50 MG/ML 1 ml VIAL (BENADRYL) IM ONE (02:34)
[2016-12-13] MEDS ORDERED: LORazepam INJ* 2 MG/ML 1 ML VIAL IM ONE (02:34)
--- NOTE | 2016-12-13 06:18 | ED ---
Eugene Lofton Alok, scribed for Rodrigo Costa on 12/12/16 at 2200 . Psychiatric Complaint - HPI Summary HPI Summary: 26 y/o female presents to the ED with multiple superficial cuts on her forearms bilaterally. Pt states she cut herself with a razor blade and was trying to commit suicide because "she feels empty inside". Pt states she is still suicidal. PMHx includes depression, schizophrenia, and multiple personality disorder. Pt denies drug/ETOH use but smokes tobacco. Allergies include Penicillin and glue. - History Of Current Complaint Chief Complaint: EDMentalHealth Time Seen by Provider: 12/12/16 21:20 Hx Obtained From: Patient Hx Last Menstrual Period: MIRENA IUD ?: No Onset/Duration: Still Present Timing: Constant Severity Initially: Moderate Severity Currently: Moderate Character: Depressed Has Suicidal: Reports: Thoughts, With A Plan, Demonstrates Gesture - Allergies/Home Medications Allergies/Adverse Reactions: Allergies Allergy/AdvReac Type Severity Reaction Status Date / Time Penicillin V Allergy Severe Hives Verified 12/08/16 16:59 Latex Allergy Intermediate Rash Verified 12/08/16 16:59 Lactose Intolerance (GI) Allergy Diarrhea Verified 12/08/16 16:59 glue Allergy Rash Uncoded 12/08/16 16:59 steri strips Allergy Rash Uncoded 12/08/16 16:59 PMH/Surg Hx/FS Hx/Imm Hx Endocrine/Hematology History: Reports: Hx Unexplained Bleeding Denies: Hx Anticoagulant Therapy, Hx Blood Disorders, Hx Thyroid Disease, Other Endocrine/Hematological Disorders Comment Only: Hx Diabetes - Borderline Cardiovascular History: Denies: Hx Hypertension, Hx Pacemaker/ICD, Other Cardiovascular Problems/ Disorders Respiratory History: Reports: Hx Asthma Denies: Hx Chronic Obstructive Pulmonary Disease (COPD), Other Respiratory Problems/Disorders GI History: Denies: Hx Ulcer, Other GI Disorders History: Reports: Other Problems/Disorders - Urinary Retention and Herpes Denies: Hx Renal Disease Musculoskeletal History: Denies: Other Musculoskeletal History Sensory History: Reports: Hx Contacts or Glasses Denies: Hx Deafness, Hx Hearing Aid, Hx Hearing Problem, Other Sensory Impairments Opthamlomology History: Reports: Hx Contacts or Glasses Denies: Other Sensory Impairments Neurological History: Reports: Hx Developmental Delay, Hx Headaches, Hx Seizures - Psuedoseizures Denies: Hx Dementia, Other Neuro Impairments/Disorders Psychiatric History: Reports: Hx Anxiety, Hx Attention Deficit Hyperactivity Disorder, Hx Eating Disorder - Age 13, Hx Depression, Hx Panic Disorder, Hx Post Traumatic Stress Disorder, Hx Inpatient Treatment, Hx Community Mental Health Tx, Hx Schizophrenia - Schizoaffective Disorder, Hx Bipolar Disorder, Hx Suicide Attempt, Hx of Violent Episodes Against Others - SEE VIOLENCE HX, Hx Substance Abuse, Other Psychiatric Issues/Disorders - COGNITIVELY LIMITED, BORDERLINE PERS D/O - Cancer History Hx Chemotherapy: No Hx Radiation Therapy: No Hx Palliative Cancer Treatment: No - Immunization History Date of Tetanus Vaccine: UTD Date of Influenza Vaccine: Unk Infectious Disease History: No Infectious Disease History: Reports: Hx Hepatitis, 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 - Social History Alcohol Use: None Alcohol Amount: "drank beer awhile ago" Hx Substance Use: No Substance Use Type: Reports: None Substance Use Comment - Amount & Last Used: Xanax and Ambien Hx Tobacco Use: Yes Smoking Status (MU): Current Every Day Smoker Type: Cigarettes Amount Used/How Often: 1/2 PPD Length of Time of Smoking/Using Tobacco: 3 years Have You Smoked in the Last Year: Yes Review of Systems Negative: Fever Positive: Other - Multiple superfical lacerations bilaterally Positive: Anxious All Other Systems Reviewed And Are Negative: Yes Physical Exam Triage Information Reviewed: Yes Vital Signs On Initial Exam: Initial Vitals Temp Pulse Resp BP Pulse Ox 97.8 F 105 14 153/94 99 12/12/16 21:09 12/12/16 21:09 12/12/16 21:09 12/12/16 21:09 12/12/16 21:09 Vital Signs Reviewed: Yes Appearance: Positive: Well-Appearing, No Pain Distress Skin: Positive: Warm, Skin Color Reflects Adequate Perfusion, Dry, Other - Multiple superfical lacerations forearms bilaterally Eyes: Positive: EOMI, OKSANA ENT: Positive: Normal ENT inspection Neck: Positive: Supple, Nontender Respiratory/Lung Sounds: Positive: Clear to Auscultation, Breath Sounds Present Cardiovascular: Positive: RRR, Pulses are Symmetrical in both Upper and Lower Extremities Abdomen Description: Positive: Nontender, Soft Bowel Sounds: Positive: Present Musculoskeletal: Positive: Normal, Strength/ROM Intact Neurological: Positive: Normal, Sensory/Motor Intact, Alert, Oriented to Person Place, Time, Other - No focal/neruological deficit Psychiatric: Positive: Other - Pt appears flat/affect. No focal/neurological deficits. Procedures - Laceration/Wound Repair 1 Location: upper extremity Closure: SteriStrips Sterile Dressing Applied?: Yes Diagnostics - Vital Signs Vital Signs Temp Pulse Resp BP Pulse Ox 12/12/16 21:09 97.8 F 105 14 153/94 99 - Laboratory Result Diagrams: 12/12/16 21:40 12/12/16 21:40 Lab Statement: Any lab studies that have been ordered have been reviewed, and results considered in the medical decision making process. Course/Dx - Course Course Of Treatment: Pt being evaluated by MHU - Differential Dx/Clinical Impression Provider Diagnosis: Depression, Suicidal ideation Discharge - Discharge Plan Condition: Stable Disposition: OTHER Discharge Disposition Comment: signed out to Dr Lombardi Referrals: Don Love, PUBLICITY DIRECTOR [Primary Care Provider] - The documentation as recorded by the Eugene haskins Alok accurately reflects the service I personally performed and the decisions made by Julissa youngblood Emmanuel.
[2016-12-13 08:33] VITALS: BP 124/67
[2016-12-13] MEDS ORDERED: LORazepam TAB(*) 1 MG ONE (10:08)
[2016-12-13] MEDS ORDERED: diPHENhydraMINE PO* 50 MG ONE (10:09)
[2016-12-13] MEDS ORDERED: Haloperidol TAB* 5 MG ONE (10:09)
[2016-12-13] MEDS: diPHENhydraMINE PO* 50 MG PO PRN ×3 (10:10→21:57)
[2016-12-13] MEDS: LORazepam TAB(*) 1 MG PO PRN ×3 (10:10→21:56)
[2016-12-13] MEDS: Haloperidol TAB* 5 MG PO PRN ×3 (10:10→21:57)
[2016-12-13] MEDS ORDERED: Acetaminophen TAB* 325 MG PO PRN (10:22)
[2016-12-13] MEDS ORDERED: Al Hydrox/Mg Hydrox/Simet LIQ* 30 ML UDC PO PRN (10:22)
[2016-12-13] MEDS ORDERED: Nicotine Inhaler* 10 MG AMP ONE (10:45)
[2016-12-13] MEDS ORDERED: Mouth Piece, Nicotine* 1 EACH CARTRIDGE ONE (10:45)
[2016-12-13] MEDS ORDERED: Nicotine GUM* 2 MG ONE (10:45)
[2016-12-13] MEDS: Nicotine Inhaler* 10 MG AMP INH PRN ×4 (10:47→21:57)
[2016-12-13] MEDS: Nicotine GUM* 2 MG PO PRN ×4 (10:47→21:58)
--- NOTE | 2016-12-13 12:27 | HP ---
PSYCHIATRIC HISTORY AND PHYSICAL: DATE OF ADMISSION: 12/13/16 JUSTIFICATION FOR ADMISSION: The patient is in need of 24-hour supervision and treatment secondary to suicidal ideations and following a self-inflicted cut. CHIEF COMPLAINT: "I feel like cutting myself and I have a lot of depression and anxiety." HISTORY OF PRESENT ILLNESS: The patient is a 26-year-old, single, white homosexual female who is we ll-known to our unit from multiple past admissions here to the [facility], who returns less than 5 days aft er her most recent discharge complaining of suicidal ideations with thoughts to cut herself. The pa tient indicates that she is having conflicts with her girlfriend. She did cut herself superficially , but this did not require sutures. In our emergency room, she was agitated and required stat medic ations to calm her down. For further history, please refer to the psychiatric H and P dictated by Gela Guadalupe dated 12/08/16. Further notable stressor is that she is pending a move to [facility], where she will be staying in a therapeutic fpc. CURRENT MENTAL STATUS EXAMINATION: The patient is an obese young white female wearing green patient scrubs who has normal hygiene and no evidence of motor disturbance. She is currently calm and coop erative, eager to come on to the psychiatric unit. Speech has normal rate, tone, and volume. Mood is depressed, irritable, with a somewhat labile affect. Thought process is linear and goal directed . Thought content is significant for her desire to be admitted to the mental health unit. She is e ndorsing suicidal ideations with thoughts of cutting herself. She denies homicidality. She does en dorse auditory hallucinations, telling her to abuse herself. She denies visual hallucinations. Ins ight and judgment are poor given her lack of followup with outpatient resources. Cognitively, she is awake with a somewhat low normal average by virtue of her history of documented intellectual disabi lity. PHYSICAL EXAMINATION APPEARANCE: Appears well, no acute distress. VITALS: Blood pressure 153/94, pulse 105, temperature 97.8 degrees Fahrenheit, respiratory rate is 14, pulse oximetry reveals oxygen saturations of 99%. HEENT: Eyes: extraocular movements are intact. Pupils are equal, round and reactive. ENT: Normal to inspection. NECK: Supple, nontender. RESPIRATORY: Clear to auscultation. CARDIOVASCULAR: Reveals normal pulses and normal heart sounds. ABDOMEN: Soft and nontender. MUSCULOSKELETAL: Reveals a full range of motion. NEUROLOGICAL: She is grossly intact with no focal deficits. SKIN: Warm and dry. LABORATORY DATA: CBC is significant for slightly elevated white blood cells at 15.5. Her CMP is i ndicating that she has low potassium at 3.3. TSH is grossly elevated at 6.68. Alcohol, acetaminophen, and salicylate levels are negligible. DIAGNOSES: Are as follows: [facility] I: 1. Unspecified psychotic disorder. 2. Posttraumatic stress disorder by history. [facility] II: 1. Borderline personality disorder. 2. Borderline intellectual functioning. [facility] III: Hypertension. [facility] IV: Severe housing and prima ry support stressors. [facility] V: At this time is 35. IMPRESSION: The patient is a 26-year-old single homosexual white female with numerous recent admiss ions to the behavioral science unit, who was most recently discharged on December 09 of this year, gallo hua now returns to the emergency room having cut herself and complaining of auditory hallucinations of a command nature telling her to further hurt herself. The patient does not appear to be following through with outpatient treatment. We need to see that her medications are adjusted and that she ac tually picks them up from the pharmacy this time. She is awaiting transfer to a fpc in [facility], which hopefully will help her stabilize. PLAN: The patient is admitted to the adult behavioral health unit. We will not continue Rexulti wh ich is a medication that she takes on an outpatient basis due to the fact that it is not on a formul jake and is quite expensive; instead, we will treat her symptomatically with as-needed Haldol along w ith Benadryl and Ativan, and when she is feeling better, likely discharge her back to outpatient [facility]. [id number]/[facility] #: [id number]
[2016-12-13] MEDS ORDERED: Benzocaine/Menthol LOZ* 1 LOZENGE ONE (17:14)
[2016-12-13] MEDS: Benzocaine/Menthol LOZ* 1 LOZENGE PO PRN (19:18)
[2016-12-14] MEDS: Nicotine GUM* 2 MG PO PRN ×2 (05:28→08:22)
[2016-12-14] MEDS: Haloperidol TAB* 5 MG PO PRN (05:30)
[2016-12-14] MEDS: LORazepam TAB(*) 1 MG PO PRN (05:31)
[2016-12-14] MEDS: diPHENhydraMINE PO* 50 MG PO PRN (05:31)
[2016-12-14] MEDS: Nicotine Inhaler* 10 MG AMP INH PRN (09:13)
[2016-12-14] MEDS: Benzocaine/Menthol LOZ* 1 LOZENGE PO PRN (09:13)
--- NOTE | 2016-12-14 13:06 | DS ---
DISCHARGE SUMMARY: DATE OF ADMISSION: 12/13/16 DATE OF DISCHARGE: 12/14/16 DISCHARGE DIAGNOSES: As follows: [place] I: Unspecified psychotic disorder, post traumatic stress disorder. [place] II: Borderline person ality disorder (primary diagnosis), borderline intellectual functioning. [place] III: Hypertension. Ax is IV: Severe housing and primary support stressors. [place] V: At the time of admission was 35 and a t the time of discharge is 45. CONDITION AT THE TIME OF DISCHARGE: Guarded. The patient is acting out behaviorally in an attempt to get attention she is banging her head against wall and spitting at staff. The patient is known t o have behavioral problems related to her intellectual disability, but even more so related to her p ersonality disorder. She is currently in violation of the behavioral contract that she signed upon a dmission and she is aware of the fact that the consequence of violation of the behavioral contract i s to be immediately discharged. The patient does have followup treatment in the community; however, at [facility] and she is willing to follow up with their services. MENTAL STATUS EXAM: At the time of discharge, the patient is an obese young white female, wearing g reen patient scrubs, who has normal hygiene, and no evidence of motor disturbance. She is currently angry and argumentative with this observer. Her speech has a normal rate, tone, and volume. Mood i s angry with somewhat labile affect. Thought process is linear and goal directed. Thought content is significant for her desire to bright this clinician. She is endorsing suicidal ideations with thoug hts of cutting herself; however, she denies homicidality. She is continuing to endorse auditory julito lucinations, generally to abuse herself; however, she is not observed, responding to internal stimul i. The patient denies visual hallucinations. Insight and judgment are poor given her over utilizat ion of inpatient services. Cognitively, she is awake with a low average intelligence by virtue of h er documented history of intellectual disability. DISCHARGE INSTRUCTIONS: To the patient are as follows: A. Medications: 1. She is to take Rexulti 0.5 mg p.o. daily. 2. Trazodone 50 mg p.o. q. nightly. 3. Tamsulosin 0.4 mg p.o. daily. It is notable that these medications were just phoned into her [facility], the [facility] on [facility] [address] on 12/09/16 at her most recent discharge and she is not requi ring refills at this time. B. Diet: Regular. C. Activities: As tolerated. The patient is strong ly encouraged to discontinue her use of cigarettes; however, she is declining the continuation of ni cotine replacement therapy at this time, indicating her preference to continue smoking cigarettes af ter discharge. There are no diagnostic studies pending at the time of discharge. D. Followup Treat ment: The patient has an acute followup appointment at [facility] tomorrow, [facility] is 12/15/16. HOSPITAL COURSE: As follows: Part A: Reason for admission: The patient is a 26-year-old single white homosexual female who is w ell known to our unit from multiple past admissions who returns in less than 5 days after her most r ecent discharge complaining again of suicidal ideations with thoughts of cutting herself. The patie nt indicates that she is having conflicts with her girlfriend and did cut herself superficially alth ough they did not require sutures in our ED. In the emergency setting she was agitated and did requ joshua stat medications to calm her down. For further history please refer to the psychiatric H and P dictated by Dr. Nishant Guadalupe 12/08/16. One further notable stressor is that she is pending a move t o a therapeutic boarding home in [place], [place], and seems to be somewhat destabilized by this fac tor. Part-B: Psychiatric treatment rendered: The patient was admitted to the adult behavioral health [facility] and placed on q.15-minute checks for her own safety. She was placed back on her medication inclu ding Rexulti 0.5 mg daily, trazodone 50 mg nightly, and tamsulosin 0.4 mg daily. In addition we uti lized p.r.n. medications for agitation including Haldol, Benadryl, and Ativan. Prior to arriving on our unit she did sign a behavioral intervention plan, which is specific to this patient, therein sh e signed that she agreed not to make threatening statements about staff, not to make statements abou t harming herself or others. She was to approach her assigned one-to-one for her wants and requests and she was to communicate her status to any staff including her progress and her coping methods. F theresamore she was to utilize coping skills and not engage in self-injurious behaviors and finally A raphael would cooperate with unit routines including medications and vitals. I am sorry to say that A raphael did not follow through with any of these obligations. She was threatening towards herself, ba nging her head against the door and at 1 point cutting herself with a plastic pen. She also was thr eatening towards staff, at one point spitting at one of the male nurses. She did not approach her a ssigned one-to-one to get her needs met and she was not communicative of her status. Furthermore, s he was not utilizing coping skills and was unable to avoid self-injurious behaviors. Finally, Stefanie saleh was not cooperative with unit routines. She refused vitals on more than one occasion. When confr onted with this Marly justified her actions stating that she need to be sent to a [facility] hospital. She is well known to both the [facility] hospitals in our area including [facility] as well as [facility] and they have refused to provide with her any further services, given the b ehavioral nature of her issues. At this point, although she complains of auditory hallucinations we do not see any evidence that she is responding to internal stimuli, instead we see a person that is entitled, attention seeking, and wanting to be on the unit in order to receive gratification in a wa y that is disruptive to the milieu, and upsetting to other patients. At this point, we feel that he r behavior is better in the outpatient setting. We feel like being in hospital places her at furthe r risk of self harm and therefore the plan is to discharge her back to care in the community. The p atient disagrees with this and did call [facility]; however, she was told by them that this situation did not warrant their intervention. Her followup will be tomorrow at [facility]. [id number]/[facility] #: [id number]
== END 2016-12-14 11:20 | disposition home or self-care (01) | DRG 751 ==
LOC: ED 21:07 → BSU 12-13 10:10
PROVIDERS: ADMIT Psychiatry & Neurology Psychiatry; ATTEND Psychiatry & Neurology Psychiatry
DX: F29 Unspecified psychosis not due to a substance or known physiological condition (principal); R45.851 Suicidal ideations; F20.9 Schizophrenia, unspecified; F43.10 Post-traumatic stress disorder, unspecified; F60.3 Borderline personality disorder; E66.9 Obesity, unspecified; F79 Unspecified intellectual disabilities; F17.210 Nicotine dependence, cigarettes, uncomplicated; I10 Essential (primary) hypertension; Z88.0 Allergy status to penicillin; Z91.048 Other nonmedicinal substance allergy status; Z91.040 Latex allergy status; J45.909 Unspecified asthma, uncomplicated; F90.9 Attention-deficit hyperactivity disorder, unspecified type; F31.9 Bipolar disorder, unspecified; F41.0 Panic disorder [episodic paroxysmal anxiety]; Z81.8 Family history of other mental and behavioral disorders; Z59.9 Problem related to housing and economic circumstances, unspecified; Z63.9 Problem related to primary support group, unspecified; Z68.32 Body mass index [BMI] 32.0-32.9, adult
CPT/HCPCS: 36415; 80053; 80320; 80329; 84443; 84702; 85025; 99222; 99238; A9270-GY; G0480; J1200; J1630; J2060

== ENCOUNTER 2016-12-20 19:30 | Inpatient (IN) | payer MEDICAID ==
[2016-12-20 20:33] LABS: Acetaminophen < 15 mcg/mL; Alcohol < 10 mg/dL (<10); Salicylate < 2.50 mg/dL (<30)
[2016-12-20] MEDS ORDERED: Haloperidol TAB* 5 MG PO ONE (20:39)
[2016-12-20] MEDS ORDERED: diPHENhydraMINE PO* 50 MG PO ONE (20:39)
[2016-12-20] MEDS ORDERED: LORazepam TAB(*) 1 MG PO ONE ×2 (20:39→23:22)
[2016-12-20] MEDS ORDERED: Nicotine GUM* 2 MG ONE (20:49)
[2016-12-20] MEDS: Nicotine GUM* 2 MG PO PRN ×2 (20:51→23:26)
--- NOTE | 2016-12-20 22:40 | PN ---
Progress Note - Progress Note Note: Left arm was irrigated and cleaned. 5 lacerations were glued with skin adhesive. 10 steristrips placed on lacerations. ~5-6 were open requiring closure of epidermal layer, rest were very superficial. No active bleeding. Glued, strei-stripped and dressed without complication by me, for Dr Lee.
[2016-12-20] MEDS ORDERED: LORazepam TAB(*) 1 MG ONE (23:23)
[2016-12-21] MEDS: Nicotine GUM* 2 MG PO PRN ×4 (08:04→14:39)
[2016-12-21 09:36] VITALS: BP 126/64
[2016-12-21] MEDS ORDERED: Al Hydrox/Mg Hydrox/Simet LIQ* 30 ML UDC PO PRN (09:51)
[2016-12-21] MEDS ORDERED: Acetaminophen TAB* 325 MG PO PRN (09:51)
[2016-12-21] MEDS ORDERED: Haloperidol TAB* 2 MG PO PRN (10:41)
[2016-12-21] MEDS ORDERED: Mouth Piece, Nicotine* 1 EACH CARTRIDGE ONE (10:46)
[2016-12-21] MEDS: Nicotine Inhaler* 10 MG AMP INH PRN ×3 (10:46→15:25)
[2016-12-21] MEDS: Haloperidol TAB* 5 MG PO PRN ×2 (10:51→16:19)
[2016-12-21] MEDS: LORazepam TAB(*) 1 MG PO PRN ×2 (10:51→16:20)
[2016-12-21] MEDS: diPHENhydraMINE PO* 50 MG PO PRN ×2 (10:51→16:20)
[2016-12-21] MEDS ORDERED: Nicotine PATCH 21 MG/24 HR* PATCH TRANSDERM SCH (15:00)
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
[2016-12-21] MEDS ORDERED: traZODone TAB* 50 MG TAB PO SCH (21:00)
[2016-12-21] MEDS ORDERED: Nicotine Patch Removal NOTE PATCH OFF SCH (21:00)
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
[2016-12-22] MEDS ORDERED: Vitamin THERAPEUTIC TAB PO SCH (09:00)
== END 2016-12-21 19:00 | disposition home or self-care (01) | DRG 754 ==
LOC: ED 19:30 → BSU 12-21 00:09
PROVIDERS: ADMIT Psychiatry & Neurology Psychiatry; ATTEND Psychiatry & Neurology Psychiatry
PROC: 0HQCXZZ Repair Left Upper Arm Skin, External Approach (ICD-10-PCS; principal; 2016-12-21)
DX: F32.9 Major depressive disorder, single episode, unspecified (principal); I10 Essential (primary) hypertension; F60.3 Borderline personality disorder; Z88.0 Allergy status to penicillin; Z91.040 Latex allergy status; E73.9 Lactose intolerance, unspecified; S41.112A Laceration without foreign body of left upper arm, initial encounter; X78.9XXA Intentional self-harm by unspecified sharp object, initial encounter; Y92.9 Unspecified place or not applicable; J45.909 Unspecified asthma, uncomplicated; F90.9 Attention-deficit hyperactivity disorder, unspecified type; F41.0 Panic disorder [episodic paroxysmal anxiety]; F43.10 Post-traumatic stress disorder, unspecified; Z81.8 Family history of other mental and behavioral disorders; F17.210 Nicotine dependence, cigarettes, uncomplicated; R41.83 Borderline intellectual functioning
CPT/HCPCS: 36415; 80320; 80329; 99238; A9270-GY; G0480

== ENCOUNTER → 2016-12-22 17:19 | Emergency (ER) | payer MEDICAID ==
[~2016-12-22 17:19] MED LIST changes: -Charcoal 50 GM/Sorbitol* 50 GM/240 ML BTL ONE; +Haloperidol INJ IV/IM* 5 MG/ML AMP IM ONE; +LORazepam INJ* 2 MG/ML 1 ML VIAL IM ONE; +Nicotine GUM* 2 MG ONE; +Nicotine Inhaler* 10 MG AMP INH ONE; +diPHENhydraMINE IV* 50 MG/ML 1 ml VIAL (BENADRYL) IM ONE
[2016-12-22 17:27] VITALS: BP 153/83
[2016-12-22] MEDS: Nicotine GUM* 2 MG PO ONE ×2 (18:38→21:21)
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
== END ==
LOC: ED 17:19
DX: S51.812A Laceration without foreign body of left forearm, initial encounter (principal); F17.210 Nicotine dependence, cigarettes, uncomplicated; Z88.0 Allergy status to penicillin; F32.9 Major depressive disorder, single episode, unspecified; X78.9XXA Intentional self-harm by unspecified sharp object, initial encounter; Y92.9 Unspecified place or not applicable; F90.9 Attention-deficit hyperactivity disorder, unspecified type; F41.9 Anxiety disorder, unspecified; F31.9 Bipolar disorder, unspecified; F20.9 Schizophrenia, unspecified; F09 Unspecified mental disorder due to known physiological condition
CPT/HCPCS: 99285; A9270-GY; J1200; J1630; J2060

== ENCOUNTER 2016-12-25 12:30 | Emergency (ER) | payer MEDICAID, OTHER ==
[2016-12-25] MEDS ORDERED: Haloperidol INJ IV/IM* 5 MG/ML AMP IM ONE ×2 (13:19→20:16)
[2016-12-25] MEDS ORDERED: LORazepam INJ* 2 MG/ML 1 ML VIAL IM ONE ×2 (13:19→20:16)
[2016-12-25] MEDS ORDERED: diPHENhydraMINE IV* 50 MG/ML 1 ml VIAL (BENADRYL) IM ONE ×2 (13:19→20:16)
[2016-12-25] MEDS ORDERED: Nicotine GUM* 2 MG ONE (13:39)
[2016-12-25] MEDS ORDERED: Nicotine GUM* 2 MG PO ONE (13:42)
[2016-12-25 13:59] LABS: Hematocrit 40 % (35-47); Hemoglobin 13.4 g/dl (12.0-16.0); Mean Corpuscular HGB Conc 34 g/dl (31-36); Mean Corpuscular Hemoglobin 29 pg (27-31); Mean Corpuscular Volume 86 fL (80-97); Mean Platelet Volume 9 um3 (7.4-10.4); Red Blood Count 4.64 10^6/ul (4.0-5.4); Red Cell Distribution Width 15 % (10.5-15); White Blood Count 15.1 10^3/ul (3.5-10.8)
[2016-12-25 14:15] LABS: ALT 27 U/L (7-52); AST 19 U/L (13-39); Albumin 4.3 g/dL (3.2-5.2); Alkaline Phosphatase 78 U/L (34-104); Anion Gap 7 mmol/L (2-11); BUN/Creatinine Ratio 14.5 (8-20); Blood Urea Nitrogen 11 mg/dL (6-24); CO2 Carbon Dioxide 23 mmol/L (22-32); Calcium 9.2 mg/dL (8.6-10.3); Chloride 105 mmol/L (101-111); EGFR African American 116.5 (>60); EGFR Non-African American 90.6 (>60); Globulin 3.5 g/dL (2-4); Glucose 93 mg/dL (70-100); Potassium 3.7 mmol/L (3.5-5.0); Sodium 135 mmol/L (133-145); Total Protein 7.8 g/dL (6.4-8.9)
[2016-12-25 14:45] LABS: Urine Bacteria 1+ (Absent); Urine Bilirubin Negative (Negative); Urine Glucose Negative (Negative); Urine Nitrite Negative (Negative)
[2016-12-25 14:53] LABS: Acetaminophen < 15 mcg/mL; Alcohol < 10 mg/dL (<10); Salicylate < 2.50 mg/dL (<30)
[2016-12-25 14:56] LABS: Benzodiazepine Urine Screen None Detected (None Detect)
[2016-12-25 15:01] LABS: TSH (Thyroid Stimulating Horm) 0.85 mcIU/mL (0.34-5.60)
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
[2016-12-25] MEDS ORDERED: diPHENhydraMINE PO* 50 MG PO ONE (21:20)
[2016-12-25] MEDS ORDERED: LORazepam TAB(*) 1 MG PO ONE (21:21)
[2016-12-25] MEDS ORDERED: Haloperidol TAB* 5 MG PO ONE (21:21)
[2016-12-26] MEDS ORDERED: LORazepam TAB(*) 1 MG PO PRN (05:46)
[2016-12-26] MEDS ORDERED: LORazepam TAB(*) 1 MG ONE (05:46)
[2016-12-26] MEDS: Nicotine GUM* 2 MG PO PRN ×2 (05:53→07:33)
[2016-12-26] MEDS ORDERED: Haloperidol INJ IV/IM* 5 MG/ML AMP ONE (08:06)
[2016-12-26] MEDS ORDERED: diPHENhydraMINE IV* 50 MG/ML 1 ml VIAL (BENADRYL) ONE (08:06)
[2016-12-26] MEDS ORDERED: LORazepam INJ* 2 MG/ML 1 ML VIAL ONE (08:06)
[2016-12-26] MEDS ORDERED: LORazepam INJ* 2 MG/ML 1 ML VIAL IM ONE (08:12)
[2016-12-26] MEDS ORDERED: diPHENhydraMINE IV* 50 MG/ML 1 ml VIAL (BENADRYL) IM ONE (08:12)
[2016-12-26] MEDS ORDERED: Haloperidol INJ IV/IM* 5 MG/ML AMP IM ONE (08:12)
[2016-12-26 08:40] VITALS: BP 119/69
== END 2016-12-26 10:45 ==
LOC: ED 12:30
DX: R45.851 Suicidal ideations (principal); R45.850 Homicidal ideations; T76.21XA Adult sexual abuse, suspected, initial encounter; R10.2 Pelvic and perineal pain; F17.210 Nicotine dependence, cigarettes, uncomplicated; F41.9 Anxiety disorder, unspecified
CPT/HCPCS: 36415; 80053; 80307; 80320; 80329; 81003; 81015; 84443; 84702; 85025; 87086; 96372; 99285; A9270-GY; G0480; J1200; J1630; J2060

== ENCOUNTER 2016-12-27 14:11 | Inpatient (IN) | payer MEDICAID, OTHER ==
[2016-12-27] MEDS ORDERED: diPHENhydraMINE IV* 50 MG/ML 1 ml VIAL (BENADRYL) IM ONE (14:49)
[2016-12-27] MEDS ORDERED: LORazepam INJ* 2 MG/ML 1 ML VIAL IM ONE (14:49)
[2016-12-27] MEDS ORDERED: Haloperidol INJ IV/IM* 5 MG/ML AMP IM ONE (14:49)
[2016-12-27 15:36] LABS: Hematocrit 41 % (35-47); Hemoglobin 13.6 g/dl (12.0-16.0); Mean Corpuscular HGB Conc 33 g/dl (31-36); Mean Corpuscular Hemoglobin 29 pg (27-31); Mean Corpuscular Volume 86 fL (80-97); Mean Platelet Volume 9 um3 (7.4-10.4); Red Blood Count 4.78 10^6/ul (4.0-5.4); Red Cell Distribution Width 15 % (10.5-15)
[2016-12-27 15:40] LABS: Add Diff/Slide Review? Slide Review Added; Comments Flag Yes
[2016-12-27 15:52] LABS: ALT 27 U/L (7-52); AST 23 U/L (13-39); Albumin 4.5 g/dL (3.2-5.2); Alkaline Phosphatase 78 U/L (34-104); Anion Gap 10 mmol/L (2-11); BUN/Creatinine Ratio 13.1 (8-20); Blood Urea Nitrogen 11 mg/dL (6-24); CO2 Carbon Dioxide 22 mmol/L (22-32); Calcium 9.4 mg/dL (8.6-10.3); Chloride 105 mmol/L (101-111); EGFR African American 103.8 (>60); EGFR Non-African American 80.7 (>60); Globulin 3.5 g/dL (2-4); Glucose 95 mg/dL (70-100); Potassium 3.7 mmol/L (3.5-5.0); Sodium 137 mmol/L (133-145)
[2016-12-27] MEDS: Nicotine GUM* 2 MG PO PRN ×2 (16:21→20:11)
[2016-12-27 16:31] LABS: TSH (Thyroid Stimulating Horm) 1.03 mcIU/mL (0.34-5.60)
[2016-12-27 16:36] LABS: Acetaminophen < 15 mcg/mL; Alcohol < 10 mg/dL (<10); Salicylate < 2.50 mg/dL (<30)
[2016-12-27] MEDS: Zolpidem TAB* 10 MG PO PRN (21:03)
--- NOTE | 2016-12-27 23:05 | ED ---
Kiara Lofton Erika, scribed for Eduardo Lee MD on 12/27/16 at 1517 . Psychiatric Complaint - HPI Summary HPI Summary: Patient is a 26-year-old female BIB Police to the ED as a 941. Patient was sent from [facility] after she told them she wanted to kill herself since her girlfriend broke up with her. Hx depression, suicide attempts , anxiety. - History Of Current Complaint Chief Complaint: EDMentalHealth Time Seen by Provider: 12/27/16 14:49 Hx Obtained From: Patient, Other: - Police Hx Last Menstrual Period: MIRENA IUD Onset/Duration: Sudden Onset, Lasting Hours, Still Present Timing: Constant Severity Currently: Moderate Character: Depressed Aggravating Factor(s): Recent Stress Alleviating Factor(s): Nothing Related History: Positive For: Prior Psychiatric Issues - Allergies/Home Medications Allergies/Adverse Reactions: Allergies Allergy/AdvReac Type Severity Reaction Status Date / Time Penicillin V Allergy Severe Hives Verified 12/27/16 14:13 Latex Allergy Intermediate Rash Verified 12/27/16 14:13 Lactose Intolerance (GI) Allergy Diarrhea Verified 12/27/16 14:13 glue Allergy Rash Uncoded 12/27/16 14:13 steri strips Allergy Rash Uncoded 12/27/16 14:13 PMH/Surg Hx/FS Hx/Imm Hx Endocrine/Hematology History: Reports: Hx Unexplained Bleeding Denies: Hx Anticoagulant Therapy, Hx Blood Disorders, Hx Thyroid Disease, Other Endocrine/Hematological Disorders - borderline diabetic Comment Only: Hx Diabetes - Borderline Cardiovascular History: Denies: Hx Hypertension, Hx Pacemaker/ICD, Other Cardiovascular Problems/ Disorders Respiratory History: Reports: Hx Asthma Denies: Hx Chronic Obstructive Pulmonary Disease (COPD), Other Respiratory Problems/Disorders GI History: Denies: Hx Ulcer, Other GI Disorders History: Reports: Other Problems/Disorders - Urinary Retention and Herpes Denies: Hx Renal Disease Musculoskeletal History: Denies: Other Musculoskeletal History Sensory History: Reports: Hx Contacts or Glasses Denies: Hx Deafness, Hx Hearing Aid, Hx Hearing Problem, Other Sensory Impairments Opthamlomology History: Reports: Hx Contacts or Glasses Denies: Other Sensory Impairments Neurological History: Reports: Hx Developmental Delay, Hx Headaches, Hx Seizures - Psuedoseizures Denies: Hx Dementia, Other Neuro Impairments/Disorders Psychiatric History: Reports: Hx Anxiety, Hx Attention Deficit Hyperactivity Disorder, Hx Eating Disorder - per prior reports, Hx Depression, Hx Panic Disorder, Hx Post Traumatic Stress Disorder, Hx Inpatient Treatment, Hx Community Mental Health Tx, Hx Bipolar Disorder, Hx Suicide Attempt, Hx of Violent Episodes Against Others - SEE VIOLENCE HX, Hx Substance Abuse, Other Psychiatric Issues/Disorders - COGNITIVELY LIMITED, BORDERLINE PERS D/O Comment Only: Hx Schizophrenia - Schizoaffective Disorder - Cancer History Hx Chemotherapy: No Hx Radiation Therapy: No Hx Palliative Cancer Treatment: No - Immunization History Date of Tetanus Vaccine: UTD Date of Influenza Vaccine: Unk Infectious Disease History: Reports: Hx Hepatitis, 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 - Social History Alcohol Use: Rare Substance Use Type: Reports: Prescribed Substance Use Comment - Amount & Last Used: Xanax and Ambien Hx Tobacco Use: Yes Smoking Status (MU): Current Every Day Smoker Type: Cigarettes Amount Used/How Often: 1/2 PPD Length of Time of Smoking/Using Tobacco: 3 years Have You Smoked in the Last Year: Yes Review of Systems Negative: Fever Positive: Depressed - stated SI All Other Systems Reviewed And Are Negative: Yes Physical Exam Triage Information Reviewed: Yes Vital Signs On Initial Exam: Initial Vitals Temp Pulse Resp BP Pulse Ox 98.5 F 100 20 148/100 99 12/27/16 14:13 12/27/16 14:13 12/27/16 14:13 12/27/16 14:13 12/27/16 14:13 Vital Signs Reviewed: Yes Appearance: Positive: Well-Appearing, No Pain Distress Skin: Positive: Warm, Skin Color Reflects Adequate Perfusion, Dry, Other - Old cuts on her left forearm in various stages of healing Head/Face: Positive: Normal Head/Face Inspection Eyes: Positive: Normal ENT: Positive: Normal ENT inspection Neck: Positive: Supple, Nontender Respiratory/Lung Sounds: Positive: Clear to Auscultation, Breath Sounds Present Cardiovascular: Positive: Tachycardia - at 100 bpm Abdomen Description: Positive: Nontender, Soft Bowel Sounds: Positive: Present Musculoskeletal: Positive: Normal Neurological: Positive: Normal Psychiatric: Positive: Other - Angry when she first arrived, but has calmed down Diagnostics - Vital Signs Vital Signs Temp Pulse Resp BP Pulse Ox 12/27/16 14:13 98.5 F 100 20 148/100 99 - Laboratory Lab Results: Lab Results 12/27/16 12/27/16 Range/Units 15:27 15:27 WBC 17.0 H (3.5-10.8) 10^3/ul RBC 4.78 (4.0-5.4) 10^6/ul Hgb 13.6 (12.0-16.0) g/dl Hct 41 (35-47) % MCV 86 (80-97) fL MCH 29 (27-31) pg MCHC 33 (31-36) g/dl RDW 15 (10.5-15) % Plt Count 324 (150-450) 10^3/ul MPV 9 (7.4-10.4) um3 Neut % (Auto) 79.5 (38-83) % Lymph % (Auto) 14.9 L (25-47) % Winn % (Auto) 4.8 (1-9) % Eos % (Auto) 0.1 (0-6) % Baso % (Auto) 0.7 (0-2) % Absolute Neuts (auto) 13.6 H (1.5-7.7) 10^3/ul Absolute Lymphs (auto) 2.5 (1.0-4.8) 10^3/ul Absolute Monos (auto) 0.8 (0-0.8) 10^3/ul Absolute Eos (auto) 0 (0-0.6) 10^3/ul Absolute Basos (auto) 0.1 (0-0.2) 10^3/ul Absolute Nucleated RBC 0 10^3/ul Nucleated RBC % 0 Sodium 137 (133-145) mmol/L Potassium 3.7 (3.5-5.0) mmol/L Chloride 105 (101-111) mmol/L Carbon Dioxide 22 (22-32) mmol/L Anion Gap 10 (2-11) mmol/L BUN 11 (6-24) mg/dL Creatinine 0.84 (0.51-0.95) mg/dL Est GFR ( Amer) 103.8 (>60) Est GFR (Non-Af Amer) 80.7 (>60) BUN/Creatinine Ratio 13.1 (8-20) Glucose 95 (70-100) mg/dL Calcium 9.4 (8.6-10.3) mg/dL Total Bilirubin 0.50 (0.2-1.0) mg/dL AST 23 (13-39) U/L ALT 27 (7-52) U/L Alkaline Phosphatase 78 (34-104) U/L Total Protein 8.0 (6.4-8.9) g/dL Albumin 4.5 (3.2-5.2) g/dL Globulin 3.5 (2-4) g/dL Albumin/Globulin Ratio 1.3 (1-3) TSH 1.03 (0.34-5.60) mcIU/mL Salicylates < 2.50 (<30) mg/dL Acetaminophen < 15 mcg/mL Serum Alcohol < 10 (<10) mg/dL Result Diagrams: 12/27/16 15:27 12/27/16 15:27 Lab Statement: Any lab studies that have been ordered have been reviewed, and results considered in the medical decision making process. Course/Dx - Course Course Of Treatment: Cleared for MHU Evaluation at 18:07 - Differential Dx/Clinical Impression Provider Diagnosis: Borderline personality disorder, Suicidal behavior Discharge - Discharge Plan Condition: Stable Disposition: OTHER Discharge Disposition Comment: Change of Shift The documentation as recorded by the Kiara haskins Erika accurately reflects the service I personally performed and the decisions made by me, Eduardo Lee MD.
[2016-12-28] MEDS: Nicotine GUM* 2 MG PO PRN ×6 (04:54→23:05)
[2016-12-28] MEDS ORDERED: LORazepam TAB(*) 1 MG PO ONE (04:59)
[2016-12-28] MEDS ORDERED: Al Hydrox/Mg Hydrox/Simet LIQ* 30 ML UDC PO PRN (07:23)
[2016-12-28] MEDS ORDERED: Mouth Piece, Nicotine* 1 EACH CARTRIDGE INH SCH (07:23)
[2016-12-28] MEDS ORDERED: Acetaminophen TAB* 325 MG PO PRN (07:23)
[2016-12-28] MEDS ORDERED: Mouth Piece, Nicotine* 1 EACH CARTRIDGE ONE (08:15)
[2016-12-28] MEDS: Nicotine Inhaler* 10 MG AMP INH PRN ×5 (08:16→17:17)
[2016-12-28] MEDS: diPHENhydraMINE PO* 50 MG PO PRN ×3 (08:16→23:04)
[2016-12-28] MEDS: Haloperidol TAB* 5 MG PO PRN ×3 (08:17→23:04)
[2016-12-28] MEDS: LORazepam TAB(*) 0.5 MG PO PRN ×3 (08:17→23:05)
[2016-12-28] MEDS: Vitamin THERAPEUTIC TAB PO SCH (08:24)
[2016-12-28] MEDS ORDERED: REXULTI PO SCH (09:00)
--- NOTE | 2016-12-28 09:13 | ED ---
Lanie Lofton Rebecca, scribed for Sierra Mcfadden MD on 12/28/16 at 0504 . Progress - Progress Note Progress Note: Pt requests nicotine gum. Pt is agitated and requests something for anxiety. Will give Ativan 2 mg po. Pt is currently pacing the room. Psych mortgage loan closer returns to re-evaluate the pt, and voluntary admission is offered to patient. I signed voluntary papers for the patient. - Consult/PCP Time Called: 18:06 Course/Dx - Course Course Of Treatment: Cleared for MHU Evaluation at 18:07 - Diagnoses Provider Diagnoses: Borderline personality disorder, Suicidal behavior The documentation as recorded by the Lanie haskins Rebecca accurately reflects the service I personally performed and the decisions made by , Sierra Mcfadden MD.
--- NOTE | 2016-12-28 13:19 | HP ---
DATE OF ADMISSION: 12/28/2016. DATE OF EVALUATION: 12/28/2016. IDENTIFICATION: Ms. Pérez is well-known to the unit from 59 admissions since 2005, about a dozen in the past year. She is admitted again on this occasion with report of intent to kill herself by hanging herself in the [place] because of distress over breaking up with her girlfriend Wendi. She has reported her wish to again be referred to the [facility] for long-term stabilization. HISTORY OF PRESENT ILLNESS: Information was gathered from interview of the patient and review of the electronic medical record. Marly reports that she is depressed and suicidal after her girlfriend, Wendi, broke up with her yesterday. She had a plan to hang herself in the lugo. She reported this plan to providers at [facility] who had her transported by emergency medical services to the emergency department here at the [facility] for an evaluation. She reports that she still has thoughts about going out to kill herself in that way. She reports also having voices in her head saying that she should not be doing this, that she should not be cutting herself. She reports that when she goes home, it is a distressing environment because her mother is not supportive and, in fact, actively disparaging toward her. She also reports that a residential DBT program that had been pursued by staff at [facility] did not accept her. She reports that her attitude now is different and that she feels that she could benefit from long-term care at the [facility] with a commitment to improving her coping skills. On this occasion, she did not engage in self- injurious behaviors, but has had multiple presentations to the emergency department recently with cuts to her forearm, some of them deeper than usual. PAST PSYCHIATRIC HISTORY: This is one of many psychiatric hospitalizations, including at the [facility]. She has a severe and chronic history of self- injurious behaviors and has periodically attempted suicide. She has had numerous medication trials with little success against her mood lability and impulsivity. She has failed antipsychotic medication trials for mood stabilization and reduction of atypical psychotic features. She has been in continued outpatient care at [facility], but I am told by providers there that she is inconsistent in follow-up. Ms Angulo also learned that she may be on the verge of being banned from the clinic for threatening behavior toward her now former girlfriend Wendi. She has also in the past been in the care of ACT teams. She has had various diagnoses, including intellectual disability, borderline personality disorder, substance related disorder, dissociative disorder, psychotic disorder, and posttraumatic stress disorder. Her report of psychotic experience has been in line with dissociative phenomenon related to complex PTSD/borderline personality disorder and does not appear to be of the less reactive type typically seen in chronic psychotic disorder. Medical trials have included Trazodone, Seroquel, Thorazine , Remeron, Neurontin, Campral, Clonidine, [place], Depakote, Celexa, Naltrexone , and Topamax. She has had poor adherence to medications in the past and has needed court ordered treatment in the outpatient setting. She has had behavioral problems with negative therapeutic reactions on the Psychiatric Unit in the past. Her behavior and mental status will often worsen on the unit due to an inability to make a stable clinical alliance and she has a tendency toward self-sabotage. She will act out in response to minor upsets with severely disruptive behavior. PAST MEDICAL HISTORY: Obesity, seizure disorder, urinary retention, herpes zoster. OUTPATIENT MEDICATION REGIMEN: This has been simplified recently to Rexulti 0.5 mg at bedtime and Trazodone 50 mg at bedtime for sleep. She also had reported in the emergency department taking at home Diphenhydramine 50 mg twice daily, using nicotine gum, and Haldol 5 mg twice daily. DRUG ALLERGIES: PENICILLIN V. FAMILY PSYCHIATRIC HISTORY: She does have half-siblings with learning and conduct disorders. SUBSTANCE ABUSE HISTORY: Has a history of marijuana use and use of cocaine in the past. Also, alcohol cravings and treatment with Campral in the past. Reports currently no active substance abuse. SOCIAL HISTORY: She was adopted and raised with half and adopted siblings. She did not graduate high school due to her frequent psychiatric hospitalizations. She has been in chaotic long-term relationships, most recently with girlfriend Wendi, which as on prior occasions is apparently ending and contributory to her distress. She identifies as lesbian. She has been living with her mother, but this is an unstable housing situation. She reports that her mother is not supportive, and has told her, for example, that she will not lock up sharp objects because Marly is an adult and should be able to resist using them to cut herself. Her mother is not willing to take her home, and has reported that her housing is in jeopardy due to Monserrat behaviors. She has in the past lived in supportive mental health housing. MENTAL STATUS EXAMINATION: Marly has some healing wounds on her forearm, multiple tattoos, hair dyed blue. She has regular rate, rhythm, and volume of speech. She is alert and oriented to person, place, time and situation. Her thought process is linear and goal directed, and mildly impoverished. She reports her mood as depressed with congruent affect. She reports continued thoughts to kill herself were she to leave the hospital with the plan reported to providers at [facility] to go into the [facility] and hang herself. She denies any thoughts of harming others. She reports having voices in her head that she identifies, however, as her own voice saying to her that she should not be doing this, that she should not be cutting herself, and, in fact, she has not been cutting herself on this admission. She denies any visual hallucinations or paranoid ideation. Her insight and judgment are chronically poor. She has tenuous impulse control. PHYSICAL EXAMINATION She did receive medical clearance in the emergency department where physical examination was documented as normal across all organ systems other than psychiatric, where it is noted that she was angry when she first arrived, but then calmed down. She did have notable cuts on her left forearm in various stages of healing. She has declined a repeat physical examination. She has reported no active symptoms, denying any chest pain, shortness of breath, nausea , vomiting, constipation, diarrhea, pain, ringing in her ears, dizziness, and denies having any other symptoms of concern that I have not specifically asked about. With her negative review of systems and her recent physical examination , it is reasonable to honor her request not to be re-examined at this time. VITAL SIGNS: Last entered into the EMR at 8:41 this morning, temperature 98.1, pulse 106, respiratory rate 18, 98 percent saturation on room air, blood pressure 100/85. LABORATORY VALUES: Elevated white count to 17, lymphocyte percentage low at 14.9 with absolute neutrophil count at 13.6. Comprehensive metabolic panel entirely within normal limits with a normal TSH of 1.03. Toxicology screen did not include urine. No salicylates, acetaminophen, or alcohol detected in serum. ASSESSMENT AND PLAN: Marly Pérez is a 26-year-old woman who has been admitted to the unit for safety concerns raised by her report that she would kill herself by hanging herself due to her distress at break-up with her girlfriend, Wendi. She has requested referral to the [facility] for long- term care and stabilization. These referrals have met with resistance and have failed in the past due to her history of negative therapeutic reaction in hospital settings. We will be working with her to identify alternative supports in the community that may be able to reduce her chronic dangerousness and her overall symptom burden and level of distress. She has agreed to comply with the behavioral modification program that was established for her at the [facility] and modified here. We will be encouraging her to make use of individual therapy to work on DBT coping skills in particular. She reports coping using walking, listening to music and artwork. She will be continued on her outpatient medications. We will be gathering collateral from her providers at [facility]. We will be in contact with her mother to work toward discharge home into a more stable setting. She has been admitted on a voluntary status. She is full code status. She is on 15 minute checks. DIAGNOSES: Borderline personality disorder, borderline intellectual functioning , posttraumatic stress disorder, adjustment disorder with disturbance of mood, unspecified depressive disorder. Job number [id number] [facility]
--- NOTE | 2016-12-28 13:53 | HP ---
DATE OF ADMISSION: 12/28/2016. DATE OF EVALUATION: 12/28/2016. IDENTIFICATION: Ms. Pérez is well-known to the unit from 59 admissions since 2005, about a dozen i n the past year. She is admitted again on this occasion with report of intent to hang herself becau se of distress over breaking up with her girlfriend Wendi. She has reported wish to again have ref erral to the [facility] for long-term stabilization. HISTORY OF PRESENT ILLNESS: Information was gathered from interview of the patient and review of [facility] electronic medical record. Marly reports that she is depressed and suicidal after her girlfriend , Wendi, broke up with her yesterday. She had a plan to hang herself in the lug[place]. She reported t his plan to providers at [facility] who had her transported by emergency medical services to the emergency department here at the [facility] for an evaluation. She repor ts that she still has thoughts about going out to kill herself in that way. She reports also having voices in her head saying that she should not be doing this, that she should not be cutting herself. She reports that when she goes home, it is a distressing environment because her mother is not sup portive and, in fact, actively disparaging toward her. She also reports that a residential DBT prog talita that had been pursued by staff at [facility] did not accept her. She reports that her attitude now is different and that she feels that she could benefit from long-term care at the [facility] with a commitment to improving her coping skills. On this occasion, she did not engage in self-injurious behaviors, but has had multiple presentations to the emergency department w ith cuts particularly to her forearm, some of them rather deep in the past. PAST PSYCHIATRIC HISTORY: This is one of many psychiatric hospitalizations, including at the [facility]. She has a severe and chronic history of self- injurious behaviors and has periodically at tempted suicide. She has had numerous medication trials with little success against her mood labili ty and impulsivity. She has failed antipsychotic medication trials for mood stabilization and reduct ion of atypical psychotic features. She has been in continued outpatient care at [facility], but I am told by providers there that she is inconsistent in follow-up. She has also in the past been in the care of ACT teams. She has had various diagnoses, including intellectu al disability, borderline personality disorder, substance related disorder, dissociative disorder, p sychotic disorder, and posttraumatic stress disorder. Her report of psychotic experience has been i n line with dissociative phenomenon related to complex PTSD/borderline personality disorder and does not appear to be of the type one sees in typical chronic psychotic disorder. Medical trials have i ncluded Trazodone, Seroquel, Thorazine, Remeron, Neurontin, Campral, Clonidine, Holly, Depakote, C elexa, Naltrexone, and Topamax. She has had poor adherence to medications in the past and has neede d court ordered treatment in the outpatient setting. She has had behavioral problems with negative therapeutic reactions on the Psychiatric Unit in the past. She will often worsen on the unit due to an inability to make a stable clinical alliance and has a tendency toward self-sabotage. She will act out of her minor upsets with severely disruptive behavior. PAST MEDICAL HISTORY: Obesity, seizure disorder, urinary retention, herpes zoster. OUTPATIENT MEDICATION REGIMEN: This has been simplified recently to Rexulti 0.5 mg at bedtime and T razodone 50 mg at bedtime for sleep. She also had reported in the emergency department taking at [facility] Diphenhydramine 50 mg twice daily, using nicotine gum, and Haldol 5 mg twice daily. DRUG ALLERGIES: PENICILLIN V. FAMILY PSYCHIATRIC HISTORY: She does have half-siblings with learning and conduct disorders. SUBSTANCE ABUSE HISTORY: Has a history of marijuana use and use of cocaine in the past. Also, alco hol cravings and treatment with Campral in the past. Reports currently no active substance abuse. SOCIAL HISTORY: She was adopted and raised with half and adopted siblings. She did not graduate hi [employer] school due to her frequent psychiatric hospitalizations. She has been in chaotic long-term relat ionships, most recently with girlfriend Wendi, which as on prior occasions is apparently ending and contributory to her distress. She identifies as lesbian. She has been living with her mother, but this is an unstable housing situation. She reports that her mother is not supportive; has told her, for example, that she will not lock up sharp objects because Marly is an adult and should be able to resist using them to cut herself. She has in the past lived in supportive mental health housing. MENTAL STATUS EXAMINATION: Marly has some healing wounds on her forearm, multiple tattoos, hair dy ed blue. She has regular rate, rhythm, and volume of speech. She is alert and oriented to person, place, time and situation. Her thought process is linear and goal directed. She reports her mood a s depressed with congruent affect. She reports continued thoughts to kill herself were she to leave the hospital with the plan reported to providers at [facility] to go into the [place] and hang herself. She denies any thoughts of harming others. She reports having voices in her h ead that she identifies, however, as her own voice saying to her that she should not be doing this, that she should not be cutting herself, and, in fact, she has not been cutting herself. She denies any visual hallucinations or paranoid ideation. Her insight and judgment are chronically poor. She has tenuous impulse control. PHYSICAL EXAMINATION She did receive medical clearance in the emergency department where physical examination was documen abby as normal across all organ systems other than psychiatric, where it is noted that she was angry when she first arrived, but then calmed down. She did have notable cuts on her left forearm in vari ous stages of healing. She has declined a repeat physical examination. She has reported no active symptoms, denying any chest pain, shortness of breath, nausea, vomiting, constipation, diarrhea, cici n, ringing in her ears, dizziness, and denies having any other symptoms of concern that I have not s pecifically asked about. Due to her negative review of systems and her recent physical examination, it is reasonable to honor her request not to be re-examined at this time. VITAL SIGNS: Last entered into the EMR at 8:41 this morning, temperature 98.1, pulse 106, respirato ry rate 18, 98 percent saturation on room air, blood pressure 100/85. LABORATORY VALUES: Elevated white count to 17, lymphocyte percentage low at 14.9 with absolute stephanie trophil count at 13.6. Comprehensive metabolic panel entirely within normal limits with a normal TS H of 1.03. Toxicology screen did not include substances in urine. No salicylates, acetaminophen, o r alcohol detected in serum. ASSESSMENT AND PLAN: Marly Pérez is a 26-year-old woman who has been admitted to the unit for saf ety concerns raised by her report that she would kill herself by hanging herself due to her distress at break-up with her girlfriend, Wendi. She has requested referral to the [facility] for long -term care and stabilization. These referrals have met with resistance and have failed in the past d ue to her history of negative therapeutic reaction in hospital settings. We will be working with roxanne romero to identify alternative supports in the community that may be able to reduce her chronic dangerous ness and her overall symptom burden and level of distress. She has agreed to comply with the behavi oral modification program that was established for her at the [facility] and modified here. We will be encouraging her to make use of individual therapy to work on DBT coping skills in particular . She will be continued on her outpatient medications. We will be gathering collateral from her pr oviders at [facility]. We will be in contact with her mother to determine [place] romero that could possibly be a stable disposition for her from this admission. She has been admitted on a voluntary status. She is full code status. She is on 15 minute checks. DIAGNOSES: Borderline personality disorder, borderline intellectual functioning, posttraumatic stre ss disorder, adjustment disorder with disturbance of mood, unspecified depressive disorder. [id number]/[facility] #: [id number]
[2016-12-28] MEDS ORDERED: Nicotine GUM* 2 MG PO PRN (14:07)
[2016-12-28] MEDS ORDERED: chlorproMAZINE TAB* 50 MG ONE (16:08)
[2016-12-28] MEDS ORDERED: chlorproMAZINE TAB* 50 MG PO PRN (16:14)
[2016-12-28] MEDS ORDERED: diPHENhydraMINE PO* 50 MG PO SCH (21:00)
[2016-12-28] MEDS ORDERED: Haloperidol TAB* 5 MG PO SCH (21:00)
[2016-12-28] MEDS: traZODone TAB* 50 MG TAB PO SCH (21:18)
[2016-12-28] MEDS: Zolpidem TAB* 10 MG PO PRN (23:23)
[2016-12-29] MEDS: traZODone TAB* 50 MG TAB PO SCH (00:10)
[2016-12-29] MEDS: Haloperidol TAB* 5 MG PO PRN (05:46)
[2016-12-29] MEDS: LORazepam TAB(*) 0.5 MG PO PRN (05:47)
[2016-12-29] MEDS: Nicotine GUM* 2 MG PO PRN ×3 (05:47→10:13)
[2016-12-29] MEDS: diPHENhydraMINE PO* 50 MG PO PRN (05:47)
[2016-12-29] MEDS: Nicotine Inhaler* 10 MG AMP INH PRN ×2 (07:30→08:53)
[2016-12-29] MEDS: Vitamin THERAPEUTIC TAB PO SCH (08:51)
[2016-12-29] MEDS ORDERED: BREXPIPRAZOLE 0.5 MG PO SCH (09:00)
--- NOTE | 2016-12-29 10:24 | DS ---
Subjective - Subjective Service Types: [id number] [facility] Day Mgmt simple under 30 min Discharge Date: 12/29/16 Subjective: Marly was in good spirits this morning. We talked about her breakup with Wendi, I normalized feeling sad. She wasn't sure the breakup is a bad thing for her. She was laughing and joking, she asked for release home noting feeling better. She affirmed she will be safe. We reviewed medications - she reports taking nothing recently outside the unit and I advised her to continue it after she declined to consider Thorazine and Topamax. She asked about using Ativan, Haldol and Ambien at home, I let her know that is not appropriate. She agreed to work with the clinic on medication. Objective - Appearance Appearance: Obese Hygiene: Normal Grooming: Fairly Well Kept - Behavior Psychomotor Activities: Normal - Attitude and Relatedness Attitude and Relatedness: Child Like Eye Contact: Good - Speech Quality: Unpressured Latencies: Normal Quantity: Terse - Mood Patient's Decription of Mood: "Okay" - Affect Observed Affect: Labile Affect Consistent with: Euthymia - Thought Process Patient's Thought Process: Coherent, Goal Directed, Impoverished Thought Content: No Passive Wish, No Suicidal Planning, No Homicidal Ideation, No Paranoid Ideation - Sensorium Experiencing Hallucinations: No, Sensorium is Clear - Level of Consciousness Level of Consciousness: Alert - Impulse Control Impulse Control: Poor - Insight and Judgement Insight and Judgement: Poor Treatment Course & Assessment Clinical Course & Impression: 26-year-old mentally disabled female with history of severe borderline personality disorder, chronic severe self-harm behavior, intellectual disability , periodic suicide attempts, history of trauma, consideration for posttraumatic stress disorder, and dissociative symptoms, along with atypical psychosis. She presented on emergent referral from clinic and was admitted due to concern over suicidal ideation - the context was her reporting a breakup with her girlfriend. 12/29/16 Clear for release. Marly stabilized rapidly. After a night on the unit her distress corrected. Acute impairing symptoms are resolved. She does not have major mood symptoms. She is free of active suicidal ideation, or violent ideation, and is in intact behavioral control now. Goals of acute hospital care have been accomplished and she is appropriate for discharge at this time. In general, hospitalization should be kept brief for Marly as she is at high risk for negative therapeutic reactions if retained longer than necessary in the hospital. We implemented her behavior modification plan on this admission. Medication management involved PRN use only medication and defers standing psychotropics at this time. This is reasonable because nothing has given her durable benefits and she has been highly inconsistent in her adherence with medicines. Marly has again made a spontaneous recovery and is back to her baseline. Acute risk of serious harm to self / other is assessed as low currently based on her low symptom burden, current intact behavioral control, and her benign ideation. Her condition is fluid, she is volatile, and risk status can change rapidly. She is at chronic elevated risk for impulsive violence, suicide, intentional and inadvertent harm. Clear for Discharge: Adequate Clinical Respons, Acceptable Safety Profile, Low Utility of Inpt Care Inpatient DSM-IV Dx: Mood disorder, adjustment disorder, posttraumatic stress disorder, borderline personality disorder, borderline intellectual functioning. Discharge Planning - Discharge Planning Discharge Plan: Outpatient Follow Up Outpatient [facility]: [facility] Recommendations for Continuing Care: Medication Management - as indicated, Psychotherapy, Primary Care Followup Medications: Current Medications NONE Discharge Planning: Prescriptions provided for discharge [] Yes [x] No Follow up care details as per social work arrangements. Patient response to discharge plan: [x] eager for discharge [] agreeable with discharge plan [] ambivalent about discharge [] disagrees with discharge today
[2016-12-29 10:56] VITALS: BP 136/84
== END 2016-12-29 11:20 | disposition home or self-care (01) | DRG 753 ==
LOC: ED 14:11 → BSU 12-28 07:34
PROVIDERS: ADMIT Psychiatry & Neurology Psychiatry; ATTEND Psychiatry & Neurology Psychiatry
DX: F39 Unspecified mood [affective] disorder (principal); R45.851 Suicidal ideations; B02.9 Zoster without complications; F43.20 Adjustment disorder, unspecified; F43.10 Post-traumatic stress disorder, unspecified; F60.3 Borderline personality disorder; R41.83 Borderline intellectual functioning; E66.9 Obesity, unspecified; Z68.36 Body mass index [BMI] 36.0-36.9, adult; G40.909 Epilepsy, unspecified, not intractable, without status epilepticus; R33.9 Retention of urine, unspecified; Z88.0 Allergy status to penicillin
CPT/HCPCS: 36415; 80053; 80320; 80329; 84443; 85025; 99222; 99238; A9270-GY; G0480; J1200; J1630; J2060

== ENCOUNTER 2017-01-01 14:32 | Inpatient (IN) | payer MEDICAID, OTHER ==
[2017-01-01] MEDS ORDERED: LORazepam TAB(*) 1 MG PO ONE (16:10)
[2017-01-01] MEDS ORDERED: Nicotine GUM* 2 MG ONE (16:47)
[2017-01-01] MEDS: Nicotine GUM* 2 MG PO ONE (16:47)
[2017-01-01 16:49] LABS: Urine Bacteria 1+ (Absent); Urine Bilirubin Negative (Negative); Urine Glucose Negative (Negative); Urine Nitrite Negative (Negative)
[2017-01-01 17:15] LABS: Benzodiazepine Urine Screen None Detected (None Detect)
[2017-01-01 17:38] LABS: Hematocrit 40 % (35-47); Hemoglobin 13.4 g/dl (12.0-16.0); Mean Corpuscular HGB Conc 34 g/dl (31-36); Mean Corpuscular Hemoglobin 29 pg (27-31); Mean Corpuscular Volume 86 fL (80-97); Mean Platelet Volume 9 um3 (7.4-10.4); Red Blood Count 4.63 10^6/ul (4.0-5.4); Red Cell Distribution Width 15 % (10.5-15); White Blood Count 15.4 10^3/ul (3.5-10.8)
[2017-01-01 17:55] LABS: ALT 32 U/L (7-52); AST 18 U/L (13-39); Albumin 4.4 g/dL (3.2-5.2); Alkaline Phosphatase 80 U/L (34-104); Anion Gap 7 mmol/L (2-11); BUN/Creatinine Ratio 15.1 (8-20); Blood Urea Nitrogen 13 mg/dL (6-24); CO2 Carbon Dioxide 23 mmol/L (22-32); Calcium 9.5 mg/dL (8.6-10.3); Chloride 105 mmol/L (101-111); EGFR Non-African American 78.6 (>60); Globulin 3.4 g/dL (2-4); Glucose 88 mg/dL (70-100); Sodium 135 mmol/L (133-145); Total Protein 7.8 g/dL (6.4-8.9)
--- NOTE | 2017-01-01 18:32 | PN ---
Progress Note - Progress Note Note: 4 simple interrupted sutures placed in right anterior forearm in 3cm in length laceration without complication. 1% lido without epi was used to anesthetize the area. Area was irrigated and cleaned. Used sterile technique. 4-0 suture material. Telfa placed over surrounding abrasions and wrapped with Kerlex.
[2017-01-01] MEDS ORDERED: LORazepam INJ* 2 MG/ML 1 ML VIAL IM ONE (18:44)
[2017-01-01] MEDS ORDERED: diPHENhydraMINE IV* 50 MG/ML 1 ml VIAL (BENADRYL) IM ONE (18:44)
[2017-01-01] MEDS ORDERED: Haloperidol INJ IV/IM* 5 MG/ML AMP IM ONE (18:45)
[2017-01-01 18:59] LABS: Acetaminophen < 15 mcg/mL; Alcohol < 10 mg/dL (<10); Salicylate < 2.50 mg/dL (<30)
[2017-01-01 19:09] LABS: TSH (Thyroid Stimulating Horm) 1.91 mcIU/mL (0.34-5.60)
[2017-01-02] MEDS ORDERED: Haloperidol TAB* 5 MG ONE (01:28)
[2017-01-02] MEDS ORDERED: diPHENhydraMINE PO* 50 MG ONE (01:28)
[2017-01-02] MEDS ORDERED: LORazepam TAB(*) 1 MG ONE (01:28)
[2017-01-02] MEDS ORDERED: Nicotine Inhaler* 10 MG AMP ONE ×2 (01:29→06:41)
[2017-01-02] MEDS ORDERED: Mouth Piece, Nicotine* 1 EACH CARTRIDGE ONE (01:29)
[2017-01-02] MEDS ORDERED: Nicotine GUM* 2 MG ONE ×2 (01:29→06:41)
[2017-01-02] MEDS: Nicotine Inhaler* 10 MG AMP INH PRN ×3 (01:30→13:52)
[2017-01-02] MEDS: Nicotine GUM* 2 MG PO ONE (01:30)
[2017-01-02] MEDS ORDERED: Mouth Piece, Nicotine* 1 EACH CARTRIDGE INH SCH (01:52)
[2017-01-02] MEDS ORDERED: Al Hydrox/Mg Hydrox/Simet LIQ* 30 ML UDC PO PRN (01:52)
[2017-01-02] MEDS ORDERED: Acetaminophen TAB* 325 MG PO PRN (01:52)
[2017-01-02] MEDS ORDERED: diPHENhydraMINE PO* 50 MG PO ONE ×2 (02:00→09:00)
[2017-01-02] MEDS ORDERED: Haloperidol TAB* 5 MG PO ONE ×2 (02:00→09:00)
[2017-01-02] MEDS ORDERED: LORazepam TAB(*) 1 MG PO ONE ×2 (02:00→09:00)
[2017-01-02] MEDS: Vitamin THERAPEUTIC TAB PO SCH (10:29)
[2017-01-02] MEDS: Nicotine GUM* 2 MG PO PRN ×3 (10:31→16:01)
[2017-01-02] MEDS: chlorproMAZINE TAB* 25 MG PO PRN (16:49)
--- NOTE | 2017-01-02 23:19 | HP ---
PSYCHIATRIC ADMISSION HISTORY AND PHYSICAL: DATE OF ADMISSION: 01/01/2017. IDENTIFYING DATA: Marly Pérez is a 26-year-old mentally disabled female with a history of numerous psychiatric hospitalizations, severe borderline personality disorder, chronic self-injury behavior and suicidal behavior, borderline intellectual functioning, history of aggression, history of atypical perceptual symptoms and associated symptoms. She is admitted to the psychiatric unit several days after her last psychiatric discharge having coming to the hospital emergency room by ambulance with self-cutting behavior and threats to harm herself and her ex- girlfriend. HISTORY OF PRESENT ILLNESS: This is an update to the history and physical associated with Marly's last psychiatric hospitalization. Please see that report by Dr. Baez dated 12/28/16 for details of Marly's prior history. Marly reports doing okay for couple of days outside the hospital. She said she is spending a hard time dealing with the breakup with her ex-girlfriend and developed more distress over it. In the emergency room, she said she had thoughts of killing her ex-girlfriend. She also had the idea of continuing to harm herself. Several of her wounds required stitches to close in the emergency room after she was performing some self-cutting. She denied new health problems in the intervals since her last hospitalization. Denied the use of alcohol or drug. She said she was not taking psychiatric medications. She said she would like to be back on Topamax and we reviewed its profile and her historic use of it. Additionally she wanted p.r.n. "medication" for anxiety and agitation. I discouraged her from habituating herself to using Haldol, Benadryl, and Ativan as it seems like an excessive intervention and not sustainable outside the hospital. She agreed to using Thorazine on a p.r.n. basis for agitation while here with the idea she could potentially use it at home as well. She expressed some frustration as her recurrent hospitalizations and would like to "sent somewhere." MENTAL STATUS EXAM: Obese, 28-don female with normal hygiene. She has multiple wounds over her arms. She has somewhat slowed psychomotor activity. She is superficially cooperative. She makes good eye contact. Speech is terse and nonspontaneous. Mood is described as "down." Affect is somber. Mildly dysphoric. Thought process is impoverished. Thought content negative for current suicidal, homicidal, or paranoid ideation. Sensorium is clear. She is alert and oriented x3. Insight and judgement is poor and impulse control is poor. PHYSICAL ASSESSMENT: Vital Signs: Temperature 97.8, blood pressure is 118/79, pulse 95, respiratory rate 16. ADMISSION LABORATORY STUDIES: CBC had a white blood count of 15.4, absolute neutrophils of 9.8, absolute monocytes of 1.0. Comprehensive panel was normal. TSH was normal. Urinalysis had 2+ leukocyte esterase, 1+ white blood cells, squamous epithelial cells, 1+ bacteria, and ascorbic acid. Toxicology screen negative for Tylenol, alcohol, or salicylates. Urine drug screen was negative. UPDATED PHYSICAL ASSESSMENT: Review of systems noncontributory. Physical examination deferred as there is no new indication. Marly was medically cleared out of the emergency room. CLINICAL SUMMARY: A 26-year-old female with severe borderline personality disorder, chronic persistent self-injury behavior, suicidal behavior, aggression. Subacutely, she has been doing poorly with about a dozen hospitalizations in 2017. She presents typically with self-cutting behaviors, passive ideation of harming her ex-girlfriend and impaired. She appears to be settling down on the unit already. Therefore, I believe that another brief hospitalization in keeping with the appropriate management plan for Marly if possible. ADMISSION DIAGNOSES: 1. Adjustment disorder, not otherwise specified. 2. Mood disorder. 3. Posttraumatic stress disorder. 4. Borderline personality disorder. 5. Borderline intellectual functioning. TREATMENT PLAN: Brief admission to the psychiatric unit. Code status is full. Safety check every 15-minute intervals. Implement individualized behavior modification plan oriented around correcting self harm behavior. Medication management, will start low dose Topamax and provide Thorazine on a p.r.n. basis for agitation. Estimated length of stay is 2 days. Discharge planning will involve coordination with appropriate aftercare. The patient's strength are her adequate baseline health and her positive help-seeking behavior. [id number]/[facility] #: [id number] NEIL
[2017-01-02] MEDS: Topiramate TAB(*) 25 MG PO SCH (23:36)
[2017-01-02] MEDS: chlorproMAZINE TAB* 100 MG PO SCH (23:36)
[2017-01-03] MEDS: Nicotine GUM* 2 MG PO PRN ×7 (06:33→23:52)
[2017-01-03] MEDS: chlorproMAZINE TAB* 25 MG PO PRN ×5 (06:33→19:37)
[2017-01-03] MEDS: Vitamin THERAPEUTIC TAB PO SCH (08:27)
[2017-01-03] MEDS: Topiramate TAB(*) 25 MG PO SCH ×2 (10:07→23:51)
--- NOTE | 2017-01-03 10:50 | PN ---
Subjective - Subjective Service Type: 76244 Hosp care 15 min low complexity Subjective: Marly complains of feeing "in and out." She agrees with Topamax use and appreciated that we got the EEG in response to her concerns. She said she feels safe now and agrees with idea of taking the medicine to day and planning release tomorrow. Objective - Appearance Appearance: Obese Hygiene: Normal Grooming: Fairly Well Kept - Behavior Psychomotor Activities: Abnormal-Decreased - Attitude and Relatedness Attitude and Relatedness: Superficially Cooperative Eye Contact: Fair - Speech Quality: Unpressured Latencies: Normal Quantity: Terse - Mood Patient's Decription of Mood: "Okay" - Affect Observed Affect: Labile Affect Consistent with: Euthymia - Thought Process Patient's Thought Process: Coherent, Impoverished Thought Content: No Passive Wish, No Suicidal Planning, No Homicidal Ideation, No Paranoid Ideation - Sensorium Experiencing Hallucinations: No, Sensorium is Clear - Level of Consciousness Level of Consciousness: Alert - Impulse Control Impulse Control: Poor - Insight and Judgement Insight and Judgement: Poor Assessment - Assessment Merits Inpatient Hospitalization: To Initiate Treatment, For Ongoing Evaluation , Consolidate Improvements, For Discharge Planning Inpatient DSM-IV Dx: 1. Adjustment disorder, not otherwise specified. 2. Mood disorder. 3. Posttraumatic stress disorder. 4. Borderline personality disorder. 5. Borderline intellectual functioning. 6. r.o. mental d.o. secondary to medical condition (seizures) Clinical Impression: 26-year-old female with severe borderline personality disorder, chronic persistent self-injury behavior, suicidal behavior, aggression, previous seizure condition and mental health sequelae. Subacutely, she has been doing poorly with about a dozen hospitalizations in 2017. She presented typically with self-cutting behaviors, passive ideation of harming her ex-girlfriend and plan to continue harming herself. Settled into the unit, up and down in terms of upset and irritability. In behavioral control now. Implement individualized behavior modification plan oriented around correcting self harm behavior. Medication management: started Topamax and provide Thorazine on a p.r.n. basis for agitation. Based on possible seizure like activity, EEG was done 01/03. Given status, expect d/c . Plan - Plan Treatment Plan: Name: MARLY WILKINSON Birthdate: 1990 [id number] Continued Medication Management: Start Medication Medications: Current Medications Acetaminophen (Tylenol Tab*) 650 mg PO Q4H PRN PRN Reason: PAIN or TEMP > 101 F Al Hydrox/Mg Hydrox/Simethicone (Maalox Plus*) 30 ml PO Q4H PRN PRN Reason: INDIGESTION Chlorpromazine HCl (Thorazine Tab*) 100 mg PO BEDTIME [facility] Last Admin: 01/02/17 23:36 Dose: 100 mg Chlorpromazine HCl (Thorazine Tab*) 25 mg PO Q2H PRN PRN Reason: AGITATION Last Admin: 01/03/17 06:33 Dose: 25 mg Device (Nicotine Mouth Piece*) 1 each INH .CARTRIDGE [facility] Last Admin: 01/02/17 01:30 Dose: 1 each Multivitamins (Theragran Tab*) 1 tab PO DAILY [facility] Last Admin: 01/03/17 08:27 Dose: Not Given Nicotine (Nicotine Inhaler*) 10 mg INH Q2H PRN PRN Reason: CRAVING Nicotine Polacrilex (Nicotine Gum*) 2 mg PO Q2H PRN PRN Reason: CRAVING Last Admin: 01/03/17 10:08 Dose: 2 mg Topiramate (Topamax(*)) 25 mg PO BID [facility] Last Admin: 01/03/17 10:07 Dose: 25 mg - Discharge Plan Discharge Plan: Outpatient Follow Up Outpatient Program: [facility]
[2017-01-03] MEDS ORDERED: Topiramate TAB(*) 25 MG PO ONE (11:00)
[2017-01-03] MEDS: Nicotine Inhaler* 10 MG AMP INH PRN ×2 (11:48→16:34)
[2017-01-03] MEDS: chlorproMAZINE TAB* 100 MG PO SCH (23:51)
[2017-01-04] MEDS: Nicotine GUM* 2 MG PO PRN ×2 (07:20→10:39)
[2017-01-04 08:12] VITALS: BP 126/46
[2017-01-04] MEDS: Nicotine Inhaler* 10 MG AMP INH PRN (08:15)
[2017-01-04] MEDS: Topiramate TAB(*) 25 MG PO SCH (08:16)
[2017-01-04] MEDS: Vitamin THERAPEUTIC TAB PO SCH (08:17)
--- NOTE | 2017-01-04 10:36 | DS ---
Subjective - Subjective Service Types: [id number] [facility] Day Mgmt simple under 30 min Discharge Date: 01/04/17 Subjective: Marly asked for release today. She denied distress and reported feeling good. She said she no longer feels she's having seizure-like activity, and agreed to continue Topamax. We also set plan for Thorazine use at home. She affirmed she feels safe. Objective - Appearance Appearance: Obese Hygiene: Normal Grooming: Fairly Well Kept - Behavior Psychomotor Activities: Abnormal-Decreased - Attitude and Relatedness Attitude and Relatedness: Superficially Cooperative Eye Contact: Fair - Speech Quality: Unpressured Latencies: Normal Quantity: Terse - Mood Patient's Decription of Mood: "Good" - Affect Observed Affect: Non-labile Affect Consistent with: Euthymia - Thought Process Patient's Thought Process: Coherent, Goal Directed, Impoverished Thought Content: No Passive Wish, No Suicidal Planning, No Homicidal Ideation, No Paranoid Ideation - Sensorium Experiencing Hallucinations: No, Sensorium is Clear - Level of Consciousness Level of Consciousness: Alert - Impulse Control Impulse Control: Poor - Insight and Judgement Insight and Judgement: Poor Treatment Course & Assessment Clinical Course & Impression: 26-year-old female with severe borderline personality disorder, chronic persistent self-injury behavior, suicidal behavior, aggression, previous seizure condition and mental health sequelae. Subacutely, she has been doing poorly with about a dozen hospitalizations in 2017. She presented typically with self-cutting behaviors, passive ideation of harming her ex-girlfriend and plan to continue harming herself. 01/04/17 Clear for release. Marly stabilized overnight, with reduced distress, intact behavioral control. Goals for acute care are accomplished and she agrees with discharge. She was up and down in terms of upset and irritability during her stay. Sub-acutely she has been demanding "B52s" - Haldol/Benadryl/Ativan combination - I am trying to curtail it's regular use as it blurs the picture as to her stabilization and is not sustainable at home - she protested my not providing it. We implemented a individualized behavior modification plan oriented around correcting self harm behavior. Medication management: started Topamax and provided Thorazine on a p.r.n. basis for agitation. Based on (low probability) possible seizure-like activity, EEG was done 01/03 ( Marly had said she "felt funny" and thought it was a seizure). The findings did not require immediate action and full results are still pending. She did not demonstrate marked confusion to suggest a post-ictal state , or overtly look like she was having seizure movements or absence seizures. In general, hospitalization should be kept brief for Marly as she is at high risk for negative therapeutic reactions if retained longer than necessary in the hospital. Acute risk of serious harm to self / other is assessed as low currently based on Marly's reduced and low symptom burden, her current intact behavioral control, and cessation of ideas of harm to self/other. Her condition is fluid, she is volatile, and risk status can change rapidly. She is at chronic elevated risk for impulsive violence, suicide, intentional and inadvertent harm. Clear for Discharge: Adequate Clinical Respons, Acceptable Safety Profile, Low Utility of In Care Inpatient DSM-IV Dx: 1. Adjustment disorder, not otherwise specified. 2. Mood disorder. 3. Posttraumatic stress disorder. 4. Borderline personality disorder. 5. Borderline intellectual functioning. 6. r.o. mental d.o. secondary to medical condition (seizures) Discharge Planning - Discharge Planning Discharge Plan: Outpatient Follow Up Out[facility]: [facility] Recommendations for Continuing Care: Medication Management, Psychotherapy, Routine Metabolic Monitoring, Primary Care Followup Medications: Current Medications Chlorpromazine HCl (Thorazine Tab*) 100 mg PO BEDTIME [facility] Last Admin: 01/03/17 23:51 Dose: 100 mg Chlorpromazine HCl (Thorazine Tab*) 25 mg PO Q6H PRN PRN Reason: AGITATION Last Admin: 01/03/17 19:37 Dose: 25 mg Nicotine Polacrilex (Nicotine Gum*) 2 mg PO Q2H PRN PRN Reason: CRAVING Last Admin: 01/04/17 07:20 Dose: 2 mg Topiramate (Topamax(*)) 50 mg PO BID [facility] Last Admin: 01/04/17 08:16 Dose: 50 mg Discharge Planning: Prescriptions provided for discharge [x] Yes [] No Follow up care details as per social work arrangements. Patient response to discharge plan: [x] eager for discharge [] agreeable with discharge plan [] ambivalent about discharge [] disagrees with discharge today
--- NOTE | 2017-01-05 00:57 | EEG ---
ELECTROENCEPHALOGRAPHY: DATE OF STUDY: 01/03/17 LOCATION: The patient is an inpatient. ORDERING PHYSICIAN: Dr. Guadalupe. CLINICAL PROBLEM: This is a 26-year-old woman with a history of idiopathic generalized epilepsy manifesting as advanced seizures as well as severe borderline personality disorder, chronic self-injury, and suicidal behavior. She was admitted to the Behavioral Health Unit because of self-cutting behaviors and threats to harm herself and her ex-girlfriend. On the day of the EEG, she stated that her head has felt funny, beginning that evening prior. EEG is requested to evaluate for epileptiform abnormalities. MEDICATIONS: 1. Maalox. 2. Acetaminophen. 3. Topamax. 4. Chlorpromazine. REPORT: The waking background showed appropriate organization with clearly defined anterior to posterior voltage and frequency gradients. There was a well -defined posterior dominant rhythm of 9 Hz, which was symmetrical and showed normal reactivity. Anteriorly, there was an expected pattern of lower voltage, irregular, mixed faster frequencies. There were 2 to 3 instances of higher amplitude theta slowing, which was frontocentrally predominant and lasted a second or less. There were no sharp features within this slowing. Hyperventilation and photic stimulation were not performed. Attenuation of the occipital rhythm accompanied drowsiness, but there were no well- developed sleep spindles to indicate the transition to stage 2 sleep. Throughout the recording, there were no definitive epileptiform discharges, focal features, paroxysmal features, or significant interhemispheric asymmetries. CLINICAL IMPRESSION: This is a mildly abnormal waking and drowsy EEG due to the presence of very occasional higher amplitude theta slowing within the waking background. Given the patient's known history of an idiopathic generalized epilepsy, these findings may be related to that condition. There are no definitive epileptiform discharges during this recording. [id number]/[facility] #: [id number] [facility]
--- NOTE | 2017-01-06 21:55 | ED ---
Lanie Lofton Rebecca, scribed for Romi Reyes MD on 01/01/17 at 1556 . Psychiatric Complaint - HPI Summary HPI Summary: Pt is a 26 y/o F BIBA who presents to ED c/o severe anxiety and SIs. Sx began suddenly at 1400 and have been constant since onset. Pt performed self harm today, creating bilateral lacerations to the forearms. Sx aggravated and alleviated by nothing. Pt reports that Ativan is typically administered to pt for similar sx. PMHx depression, anxiety, panic disorder and suicide attempts. - History Of Current Complaint Chief Complaint: EDMentalHealth Time Seen by Provider: 01/01/17 14:52 Hx Obtained From: Patient Hx Last Menstrual Period: MIRENA IUD Onset/Duration: Sudden Onset, Still Present Timing: Constant Severity Initially: Severe Severity Currently: Severe Character: Anxious Aggravating Factor(s): Nothing Alleviating Factor(s): Nothing Has Suicidal: Reports: Thoughts - Allergies/Home Medications Allergies/Adverse Reactions: Allergies Allergy/AdvReac Type Severity Reaction Status Date / Time Penicillin V Allergy Severe Hives Verified 12/28/16 08:35 Latex Allergy Intermediate Rash Verified 12/28/16 08:35 Lactose Intolerance (GI) Allergy Diarrhea Verified 12/28/16 08:35 glue Allergy Rash Uncoded 12/28/16 08:35 steri strips Allergy Rash Uncoded 12/28/16 08:35 PMH/Surg Hx/FS Hx/Imm Hx Endocrine/Hematology History: Reports: Hx Unexplained Bleeding Denies: Hx Anticoagulant Therapy, Hx Blood Disorders, Hx Thyroid Disease, Other Endocrine/Hematological Disorders - borderline diabetic Comment Only: Hx Diabetes - Borderline Cardiovascular History: Denies: Hx Hypertension, Hx Pacemaker/ICD, Other Cardiovascular Problems/ Disorders Respiratory History: Reports: Hx Asthma - patient denied Denies: Hx Chronic Bronchitis, Hx Chronic Obstructive Pulmonary Disease (COPD ), Hx Cystic Fibrosis, Hx Lung Cancer, Hx Pleural Effusion, Hx Pneumonia, Hx Pulmonary Edema, Hx Pulmonary Embolism, Hx Seasonal Allergies, Hx Sleep Apnea, Other Respiratory Problems/Disorders GI History: Denies: Hx Ulcer, Other GI Disorders History: Reports: Other Problems/Disorders - Urinary Retention and Herpes Denies: Hx Renal Disease Musculoskeletal History: Denies: Other Musculoskeletal History Sensory History: Reports: Hx Contacts or Glasses Denies: Hx Cataracts, Hx Eye Injury, Hx Eye Prosthesis, Hx Glaucoma, Hx Legally Blind, Hx Macular Degeneration, Hx Deafness, Hx Hearing Aid, Hx Hearing Problem, Other Sensory Impairments Opthamlomology History: Reports: Hx Contacts or Glasses Denies: Hx Cataracts, Hx Eye Injury, Hx Eye Prosthesis, Hx Glaucoma, Hx Legally Blind, Hx Macular Degeneration, Other Sensory Impairments Neurological History: Reports: Hx Developmental Delay, Hx Headaches, Hx Seizures - Psuedoseizures Denies: Hx Dementia, Hx Migraine, Hx Nerve Disease, Hx Spinal Cord Injury, Hx Transient Ischemic Attacks (TIA), Other Neuro Impairments/Disorders Psychiatric History: Reports: Hx Anxiety, Hx Attention Deficit Hyperactivity Disorder, Hx Eating Disorder - per prior reports, Hx Depression, Hx Panic Disorder, Hx Post Traumatic Stress Disorder, Hx Inpatient Treatment, Hx Community Mental Health Tx, Hx Bipolar Disorder, Hx Suicide Attempt, Hx of Violent Episodes Against Others - SEE VIOLENCE HX, Hx Substance Abuse, Other Psychiatric Issues/Disorders - COGNITIVELY LIMITED, BORDERLINE PERS D/O Comment Only: Hx Schizophrenia - Schizoaffective Disorder - Cancer History Hx Chemotherapy: No Hx Radiation Therapy: No Hx Palliative Cancer Treatment: No - Immunization History Date of Tetanus Vaccine: UTD Date of Influenza Vaccine: Unk Infectious Disease History: 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 - Social History Lives: With Family Alcohol Use: None Alcohol Amount: "drank beer awhile ago" Hx Substance Use: No Substance Use Type: Reports: None Substance Use Comment - Amount & Last Used: denies substance abuse Hx Tobacco Use: Yes Smoking Status (MU): Light Every Day Tobacco Smoker Type: Cigarettes Amount Used/How Often: 4 cigarettes per day Length of Time of Smoking/Using Tobacco: 3 years Have You Smoked in the Last Year: Yes Review of Systems Positive: Other - Lacerations bilaterally to the UE Positive: Anxious All Other Systems Reviewed And Are Negative: Yes Physical Exam - Summary Physical Exam Summary: General: Well appearing, no pain distress Skin: Warm, Skin Color Reflects Adequate Perfusion, Dry, Too many to count lacerations on the forearms, bilaterally. Eyes: EOMI, [place] ENT: Pharynx normal, TMs normal Respiratory: CTA, breath sounds present, no rhonchi, no wheezes, no rales Cardiovascular: RRR, no murmur, no rub, no gallop Musculoskeletal: JORGE L, No edema Neuro: Sensory/motor intact, A&Ox3, CN intact 2-12 Psych: Very anxious, moving away from her and I go to talk to her Triage Information Reviewed: Yes Vital Signs On Initial Exam: Initial Vitals Temp Pulse Resp BP Pulse Ox 98.9 F 88 18 103/80 98 01/01/17 14:35 01/01/17 14:35 01/01/17 14:35 01/01/17 14:35 01/01/17 14:35 Vital Signs Reviewed: Yes Diagnostics - Vital Signs Vital Signs Temp Pulse Resp BP Pulse Ox 01/01/17 14:35 98.9 F 88 18 103/80 98 - Laboratory Lab Results: Lab Results 01/01/17 01/01/17 01/01/17 Range/Units 16:35 16:35 17:25 WBC 15.4 H (3.5-10.8) 10^3/ul RBC 4.63 (4.0-5.4) 10^6/ul Hgb 13.4 (12.0-16.0) g/dl Hct 40 (35-47) % MCV 86 (80-97) fL MCH 29 (27-31) pg MCHC 34 (31-36) g/dl RDW 15 (10.5-15) % Plt Count 304 (150-450) 10^3/ul MPV 9 (7.4-10.4) um3 Neut % (Auto) 63.6 (38-83) % Lymph % (Auto) 28.5 (25-47) % [place] % (Auto) 6.3 (1-9) % Eos % (Auto) 0.6 (0-6) % Baso % (Auto) 1.0 (0-2) % Absolute Neuts (auto) 9.8 H (1.5-7.7) 10^3/ul Absolute Lymphs (auto) 4.4 (1.0-4.8) 10^3/ul Absolute Monos (auto) 1.0 H (0-0.8) 10^3/ul Absolute Eos (auto) 0.1 (0-0.6) 10^3/ul Absolute Basos (auto) 0.2 (0-0.2) 10^3/ul Absolute Nucleated RBC 0.01 10^3/ul Nucleated RBC % 0 Sodium (133-145) mmol/L Potassium (3.5-5.0) mmol/L Chloride (101-111) mmol/L Carbon Dioxide (22-32) mmol/L Anion Gap (2-11) mmol/L BUN (6-24) mg/dL Creatinine (0.51-0.95) mg/dL Est GFR ( Amer) (>60) Est GFR (Non-Af Amer) (>60) BUN/Creatinine Ratio (8-20) Glucose (70-100) mg/dL Calcium (8.6-10.3) mg/dL Total Bilirubin (0.2-1.0) mg/dL AST (13-39) U/L ALT (7-52) U/L Alkaline Phosphatase (34-104) U/L Total Protein (6.4-8.9) g/dL Albumin (3.2-5.2) g/dL Globulin (2-4) g/dL Albumin/Globulin Ratio (1-3) TSH (0.34-5.60) mcIU/mL Urine Color Yellow Urine Appearance Cloudy Urine pH 5.0 (5-9) Ur Specific [place] 1.025 (1.010-1.030) Urine Protein Negative (Negative) Urine Ketones Negative (Negative) Urine Blood Negative (Negative) Urine Nitrate Negative (Negative) Urine Bilirubin Negative (Negative) Urine Urobilinogen Negative (Negative) Ur Leukocyte Esterase 2+ H (Negative) Urine WBC (Auto) 1+(6-10/hpf) H (Absent) Urine RBC (Auto) Absent (Absent) Ur Squamous Epith Cells Present H (Absent) Urine Bacteria 1+ H (Absent) Urine Glucose Negative (Negative) Urine Ascorbic Acid * H (Negative) Salicylates (<30) mg/dL Urine Opiates Screen None detected (None Detect) Acetaminophen mcg/mL Ur Barbiturates Screen None detected (None Detect) Ur Phencyclidine Scrn None detected (None Detect) Ur Amphetamines Screen None detected (None Detect) U Benzodiazepines Scrn None detected (None Detect) Urine Cocaine Screen None detected (None Detect) U Cannabinoids Screen None detected (None Detect) Serum Alcohol (<10) mg/dL 01/01/17 Range/Units 17:25 WBC (3.5-10.8) 10^3/ul RBC (4.0-5.4) 10^6/ul Hgb (12.0-16.0) g/dl Hct (35-47) % MCV (80-97) fL MCH (27-31) pg MCHC (31-36) g/dl RDW (10.5-15) % Plt Count (150-450) 10^3/ul MPV (7.4-10.4) um3 Neut % (Auto) (38-83) % Lymph % (Auto) (25-47) % [place] % (Auto) (1-9) % Eos % (Auto) (0-6) % Baso % (Auto) (0-2) % Absolute Neuts (auto) (1.5-7.7) 10^3/ul Absolute Lymphs (auto) (1.0-4.8) 10^3/ul Absolute Monos (auto) (0-0.8) 10^3/ul Absolute Eos (auto) (0-0.6) 10^3/ul Absolute Basos (auto) (0-0.2) 10^3/ul Absolute Nucleated RBC 10^3/ul Nucleated RBC % Sodium 135 (133-145) mmol/L Potassium 4.0 (3.5-5.0) mmol/L Chloride 105 (101-111) mmol/L Carbon Dioxide 23 (22-32) mmol/L Anion Gap 7 (2-11) mmol/L BUN 13 (6-24) mg/dL Creatinine 0.86 (0.51-0.95) mg/dL Est GFR ( Amer) 101.0 (>60) Est GFR (Non-Af Amer) 78.6 (>60) BUN/Creatinine Ratio 15.1 (8-20) Glucose 88 (70-100) mg/dL Calcium 9.5 (8.6-10.3) mg/dL Total Bilirubin 0.30 (0.2-1.0) mg/dL AST 18 (13-39) U/L ALT 32 (7-52) U/L Alkaline Phosphatase 80 (34-104) U/L Total Protein 7.8 (6.4-8.9) g/dL Albumin 4.4 (3.2-5.2) g/dL Globulin 3.4 (2-4) g/dL Albumin/Globulin Ratio 1.3 (1-3) TSH 1.91 (0.34-5.60) mcIU/mL Urine Color Urine Appearance Urine pH (5-9) Ur Specific [place] (1.010-1.030) Urine Protein (Negative) Urine Ketones (Negative) Urine Blood (Negative) Urine Nitrate (Negative) Urine Bilirubin (Negative) Urine Urobilinogen (Negative) Ur Leukocyte Esterase (Negative) Urine WBC (Auto) (Absent) Urine RBC (Auto) (Absent) Ur Squamous Epith Cells (Absent) Urine Bacteria (Absent) Urine Glucose (Negative) Urine Ascorbic Acid (Negative) Salicylates < 2.50 (<30) mg/dL Urine Opiates Screen (None Detect) Acetaminophen < 15 mcg/mL Ur Barbiturates Screen (None Detect) Ur Phencyclidine Scrn (None Detect) Ur Amphetamines Screen (None Detect) U Benzodiazepines Scrn (None Detect) Urine Cocaine Screen (None Detect) U Cannabinoids Screen (None Detect) Serum Alcohol < 10 (<10) mg/dL Result Diagrams: 01/01/17 17:25 01/01/17 17:25 Lab Statement: Any lab studies that have been ordered have been reviewed, and results considered in the medical decision making process. Course/Dx - Differential Dx/Clinical Impression Provider Diagnosis: Mood disorder Discharge - Discharge Plan Condition: Improved Disposition: PS[facility]CHIATRIC FACILITY-[facility] [place] The documentation as recorded by the Lanie haskins Rebecca accurately reflects the service I personally performed and the decisions made by me, Romi Reyes MD.
== END 2017-01-04 11:25 | disposition home or self-care (01) | DRG 755 ==
LOC: ED 14:32 → BSU 20:43
PROVIDERS: ADMIT Psychiatry & Neurology Psychiatry; ATTEND Psychiatry & Neurology Psychiatry
PROC: 0HQDXZZ Repair Right Lower Arm Skin, External Approach (ICD-10-PCS; principal; 2017-01-01)
PROC: 4A00X4Z Measurement of Central Nervous Electrical Activity, External Approach (ICD-10-PCS; 2017-01-03)
DX: F43.20 Adjustment disorder, unspecified (principal); G40.909 Epilepsy, unspecified, not intractable, without status epilepticus; F32.9 Major depressive disorder, single episode, unspecified; F60.3 Borderline personality disorder; R45.1 Restlessness and agitation; F39 Unspecified mood [affective] disorder; F43.10 Post-traumatic stress disorder, unspecified; R41.83 Borderline intellectual functioning; F09 Unspecified mental disorder due to known physiological condition; F44.9 Dissociative and conversion disorder, unspecified; E66.9 Obesity, unspecified; F41.0 Panic disorder [episodic paroxysmal anxiety]; F90.9 Attention-deficit hyperactivity disorder, unspecified type; F17.210 Nicotine dependence, cigarettes, uncomplicated; S51.812A Laceration without foreign body of left forearm, initial encounter; S51.811A Laceration without foreign body of right forearm, initial encounter; X58.XXXA Exposure to other specified factors, initial encounter; Y92.9 Unspecified place or not applicable; Z72.89 Other problems related to lifestyle; Z88.0 Allergy status to penicillin; Z81.8 Family history of other mental and behavioral disorders; Z91.040 Latex allergy status; Z91.048 Other nonmedicinal substance allergy status; Z68.30 Body mass index [BMI] 30.0-30.9, adult
CPT/HCPCS: 36415; 80053; 80307; 80320; 80329; 81003; 81015; 84443; 85025; 87086; 95819; 99222; 99231; A9270-GY; G0480; J1200; J1630; J2060

== ENCOUNTER 2017-01-09 18:21 | Emergency (ER) | payer MEDICAID, OTHER ==
[2017-01-09 19:31] LABS: Hematocrit 41 % (35-47); Hemoglobin 13.4 g/dl (12.0-16.0); Mean Corpuscular HGB Conc 33 g/dl (31-36); Mean Corpuscular Hemoglobin 28 pg (27-31); Mean Corpuscular Volume 87 fL (80-97); Mean Platelet Volume 9 um3 (7.4-10.4); Red Blood Count 4.72 10^6/ul (4.0-5.4); Red Cell Distribution Width 15 % (10.5-15); White Blood Count 14.6 10^3/ul (3.5-10.8)
[2017-01-09 19:42] LABS: ALT 23 U/L (7-52); AST 19 U/L (13-39); Albumin 4.4 g/dL (3.2-5.2); Alkaline Phosphatase 71 U/L (34-104); Anion Gap 6 mmol/L (2-11); BUN/Creatinine Ratio 11.3 (8-20); Blood Urea Nitrogen 11 mg/dL (6-24); CO2 Carbon Dioxide 24 mmol/L (22-32); Calcium 9.4 mg/dL (8.6-10.3); Chloride 108 mmol/L (101-111); Creatine Kinase 163 U/L (10-223); EGFR African American 87.9 (>60); EGFR Non-African American 68.4 (>60); Globulin 3.1 g/dL (2-4); Glucose 94 mg/dL (70-100); Potassium 3.6 mmol/L (3.5-5.0); Sodium 138 mmol/L (133-145); Total Protein 7.5 g/dL (6.4-8.9)
[2017-01-09 19:43] LABS: Acetaminophen < 15 mcg/mL; Alcohol < 10 mg/dL (<10); Salicylate < 2.50 mg/dL (<30)
[2017-01-09] MEDS: Nicotine GUM* 2 MG PO PRN (22:21)
[2017-01-10] MEDS: Nicotine GUM* 2 MG PO PRN ×5 (00:46→13:18)
[2017-01-10 04:15] LABS: Urine Bacteria 1+ (Absent); Urine Bilirubin Negative (Negative); Urine Glucose Negative (Negative); Urine Nitrite Negative (Negative)
[2017-01-10 04:22] LABS: Benzodiazepine Urine Screen Presumptive Positive (None Detect)
[2017-01-10] MEDS ORDERED: LORazepam INJ* 2 MG/ML 1 ML VIAL IM ONE (04:57)
[2017-01-10] MEDS ORDERED: LORazepam TAB(*) 1 MG PO ONE (09:26)
[2017-01-10] MEDS ORDERED: Loperamide CAP* 2 MG PO ONE (13:38)
[2017-01-10 13:52] VITALS: BP 133/89
--- NOTE | 2017-01-11 07:23 | ED ---
Eugene Lofton Alok, scribed for Eduardo Lee MD on 01/09/17 at 1900 . Substance Abuse/Use - HPI Summary HPI Summary: 26F presents to the ED for suspected Clonopin overdose. Pt was reportedly found passed out outdoors in a field by EMS. EMS did not give treatments besides placement of IV. Pt is responsive to voice and painful stimuli but does not answer questions. PMHx includes schizoaffective disorder, mood disorder, and borderline DM. - History Of Current Complaint Chief Complaint: EDOverdose Stated Complaint: OVERDOSE Hx Obtained From: Patient Hx Last Menstrual Period: MIRENA IUD ?: No Onset/Duration of Drug/ETOH Abuse: Hours Ingestion History: Type/Name Of Drug - Suspected Clonopin overdose Severity Initially: Moderate Severity Currently: Moderate Character: Stuporous Aggravating Factor(s): Nothing Alleviating Factor(s): Nothing Associated Signs And Symptoms: Negative - Allergies/Home Medications Allergies/Adverse Reactions: Allergies Allergy/AdvReac Type Severity Reaction Status Date / Time Penicillin V Allergy Severe Hives Verified 01/09/17 18:30 Latex Allergy Intermediate Rash Verified 01/09/17 18:30 Lactose Intolerance (GI) Allergy Diarrhea Verified 01/09/17 18:30 glue Allergy Rash Uncoded 01/09/17 18:30 steri strips Allergy Rash Uncoded 01/09/17 18:30 PMH/Surg Hx/FS Hx/Imm Hx Endocrine/Hematology History: Reports: Hx Unexplained Bleeding Denies: Hx Anticoagulant Therapy, Hx Blood Disorders, Hx Thyroid Disease, Other Endocrine/Hematological Disorders - borderline diabetic Comment Only: Hx Diabetes - Borderline Cardiovascular History: Denies: Hx Hypertension, Hx Pacemaker/ICD, Other Cardiovascular Problems/ Disorders Respiratory History: Reports: Hx Asthma - patient denied Denies: Hx Chronic Bronchitis, Hx Chronic Obstructive Pulmonary Disease (COPD ), Hx Cystic Fibrosis, Hx Lung Cancer, Hx Pleural Effusion, Hx Pneumonia, Hx Pulmonary Edema, Hx Pulmonary Embolism, Hx Seasonal Allergies, Hx Sleep Apnea, Other Respiratory Problems/Disorders GI History: Denies: Hx Ulcer, Other GI Disorders History: Reports: Other Problems/Disorders - Urinary Retention and Herpes Denies: Hx Renal Disease Musculoskeletal History: Denies: Other Musculoskeletal History Sensory History: Reports: Hx Contacts or Glasses Denies: Hx Cataracts, Hx Eye Injury, Hx Eye Prosthesis, Hx Glaucoma, Hx Legally Blind, Hx Macular Degeneration, Hx Deafness, Hx Hearing Aid, Hx Hearing Problem, Other Sensory Impairments Opthamlomology History: Reports: Hx Contacts or Glasses Denies: Hx Cataracts, Hx Eye Injury, Hx Eye Prosthesis, Hx Glaucoma, Hx Legally Blind, Hx Macular Degeneration, Other Sensory Impairments Neurological History: Reports: Hx Developmental Delay, Hx Headaches, Hx Seizures - Psuedoseizures Denies: Hx Dementia, Hx Migraine, Hx Nerve Disease, Hx Spinal Cord Injury, Hx Transient Ischemic Attacks (TIA), Other Neuro Impairments/Disorders Psychiatric History: Reports: Hx Anxiety, Hx Attention Deficit Hyperactivity Disorder, Hx Eating Disorder - per prior reports, Hx Depression, Hx Panic Disorder, Hx Post Traumatic Stress Disorder, Hx Inpatient Treatment, Hx Community Mental Health Tx, Hx Bipolar Disorder, Hx Suicide Attempt, Hx of Violent Episodes Against Others - SEE VIOLENCE HX, Hx Substance Abuse, Other Psychiatric Issues/Disorders - COGNITIVELY LIMITED, BORDERLINE PERS D/O Comment Only: Hx Schizophrenia - Schizoaffective Disorder - Cancer History Hx Chemotherapy: No Hx Radiation Therapy: No Hx Palliative Cancer Treatment: No - Immunization History Date of Tetanus Vaccine: UTD Date of Influenza Vaccine: Unk Infectious Disease History: Unable to Obtain/Confirm Infectious Disease History: 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 - Social History Occupation: Unemployed Lives: With Family Alcohol Use: None Alcohol Amount: "drank beer awhile ago" Hx Substance Use: No Substance Use Type: Reports: None Substance Use Comment - Amount & Last Used: denies substance abuse Hx Tobacco Use: Yes Smoking Status (MU): Light Every Day Tobacco Smoker Type: Cigarettes Amount Used/How Often: 4 cigarettes per day Length of Time of Smoking/Using Tobacco: 3 years Have You Smoked in the Last Year: Yes Review of Systems Negative: Fever Negative: Anxious All Other Systems Reviewed And Are Negative: Yes Physical Exam Triage Information Reviewed: Yes Vital Signs On Initial Exam: Initial Vitals Temp 98.4 F 01/09/17 18:27 Vital Signs Reviewed: Yes Appearance: Positive: Well-Appearing, No Pain Distress Skin: Positive: Warm, Skin Color Reflects Adequate Perfusion, Dry Head/Face: Positive: Normal Head/Face Inspection Eyes: Positive: Normal ENT: Positive: Normal ENT inspection Neck: Positive: Supple, Nontender Respiratory/Lung Sounds: Positive: Clear to Auscultation, Breath Sounds Present Cardiovascular: Positive: RRR Abdomen Description: Positive: Nontender, Soft Bowel Sounds: Positive: Present Musculoskeletal: Positive: Normal Neurological: Positive: Normal Psychiatric: Positive: Other - Pt appears stuperous laying with eyes close and responsed to voice and painful stimuli without answering questions. - [place] Coma Scale Coma Scale Total: 15 Diagnostics - Vital Signs Vital Signs Temp Pulse Resp BP Pulse Ox 01/09/17 18:34 82 24 98 01/09/17 18:32 118/70 01/09/17 18:28 98.4 F 85 25 121/73 98 01/09/17 18:27 98.4 F - Laboratory Lab Results: Lab Results 01/09/17 01/09/17 01/09/17 Range/Units 18:35 18:35 18:35 WBC 14.6 H (3.5-10.8) 10^3/ul RBC 4.72 (4.0-5.4) 10^6/ul Hgb 13.4 (12.0-16.0) g/dl Hct 41 (35-47) % MCV 87 (80-97) fL MCH 28 (27-31) pg MCHC 33 (31-36) g/dl RDW 15 (10.5-15) % Plt Count 327 (150-450) 10^3/ul MPV 9 (7.4-10.4) um3 Neut % (Auto) 73.0 (38-83) % Lymph % (Auto) 20.3 L (25-47) % [place] % (Auto) 5.9 (1-9) % Eos % (Auto) 0.3 (0-6) % Baso % (Auto) 0.5 (0-2) % Absolute Neuts (auto) 10.6 H (1.5-7.7) 10^3/ul Absolute Lymphs (auto) 3.0 (1.0-4.8) 10^3/ul Absolute Monos (auto) 0.9 H (0-0.8) 10^3/ul Absolute Eos (auto) 0 (0-0.6) 10^3/ul Absolute Basos (auto) 0.1 (0-0.2) 10^3/ul Absolute Nucleated RBC 0.02 10^3/ul Nucleated RBC % 0.2 Sodium 138 (133-145) mmol/L Potassium 3.6 (3.5-5.0) mmol/L Chloride 108 (101-111) mmol/L Carbon Dioxide 24 (22-32) mmol/L Anion Gap 6 (2-11) mmol/L BUN 11 (6-24) mg/dL Creatinine 0.97 H (0.51-0.95) mg/dL Est GFR ( Amer) 87.9 (>60) Est GFR (Non-Af Amer) 68.4 (>60) BUN/Creatinine Ratio 11.3 (8-20) Glucose 94 (70-100) mg/dL Lactic Acid 0.9 (0.5-2.0) mmol/L Calcium 9.4 (8.6-10.3) mg/dL Total Bilirubin 0.50 (0.2-1.0) mg/dL AST 19 (13-39) U/L ALT 23 (7-52) U/L Alkaline Phosphatase 71 (34-104) U/L Total Creatine Kinase 163 (10-223) U/L Total Protein 7.5 (6.4-8.9) g/dL Albumin 4.4 (3.2-5.2) g/dL Globulin 3.1 (2-4) g/dL Albumin/Globulin Ratio 1.4 (1-3) Urine Color Urine Appearance Urine pH (5-9) Ur Specific [place] (1.010-1.030) Urine Protein (Negative) Urine Ketones (Negative) Urine Blood (Negative) Urine Nitrate (Negative) Urine Bilirubin (Negative) Urine Urobilinogen (Negative) Ur Leukocyte Esterase (Negative) Urine WBC (Auto) (Absent) Urine RBC (Auto) (Absent) Ur Squamous Epith Cells (Absent) Urine Bacteria (Absent) Urine Glucose (Negative) Salicylates < 2.50 (<30) mg/dL Urine Opiates Screen (None Detect) Acetaminophen < 15 mcg/mL Ur Barbiturates Screen (None Detect) Ur Phencyclidine Scrn (None Detect) Ur Amphetamines Screen (None Detect) U Benzodiazepines Scrn (None Detect) Urine Cocaine Screen (None Detect) U Cannabinoids Screen (None Detect) Serum Alcohol < 10 (<10) mg/dL 01/10/17 01/10/17 Range/Units 03:45 03:45 WBC (3.5-10.8) 10^3/ul RBC (4.0-5.4) 10^6/ul Hgb (12.0-16.0) g/dl Hct (35-47) % MCV (80-97) fL MCH (27-31) pg MCHC (31-36) g/dl RDW (10.5-15) % Plt Count (150-450) 10^3/ul MPV (7.4-10.4) um3 Neut % (Auto) (38-83) % Lymph % (Auto) (25-47) % [place] % (Auto) (1-9) % Eos % (Auto) (0-6) % Baso % (Auto) (0-2) % Absolute Neuts (auto) (1.5-7.7) 10^3/ul Absolute Lymphs (auto) (1.0-4.8) 10^3/ul Absolute Monos (auto) (0-0.8) 10^3/ul Absolute Eos (auto) (0-0.6) 10^3/ul Absolute Basos (auto) (0-0.2) 10^3/ul Absolute Nucleated RBC 10^3/ul Nucleated RBC % Sodium (133-145) mmol/L Potassium (3.5-5.0) mmol/L Chloride (101-111) mmol/L Carbon Dioxide (22-32) mmol/L Anion Gap (2-11) mmol/L BUN (6-24) mg/dL Creatinine (0.51-0.95) mg/dL Est GFR ( Amer) (>60) Est GFR (Non-Af Amer) (>60) BUN/Creatinine Ratio (8-20) Glucose (70-100) mg/dL Lactic Acid (0.5-2.0) mmol/L Calcium (8.6-10.3) mg/dL Total Bilirubin (0.2-1.0) mg/dL AST (13-39) U/L ALT (7-52) U/L Alkaline Phosphatase (34-104) U/L Total Creatine Kinase (10-223) U/L Total Protein (6.4-8.9) g/dL Albumin (3.2-5.2) g/dL Globulin (2-4) g/dL Albumin/Globulin Ratio (1-3) Urine Color Yellow Urine Appearance Cloudy Urine pH 5.0 (5-9) Ur Specific [place] 1.023 (1.010-1.030) Urine Protein 1+(30 mg/dl) H (Negative) Urine Ketones Negative (Negative) Urine Blood 1+ H (Negative) Urine Nitrate Negative (Negative) Urine Bilirubin Negative (Negative) Urine Urobilinogen Negative (Negative) Ur Leukocyte Esterase Trace H (Negative) Urine WBC (Auto) 1+(6-10/hpf) H (Absent) Urine RBC (Auto) 1+(3-5/hpf) H (Absent) Ur Squamous Epith Cells Present H (Absent) Urine Bacteria 1+ H (Absent) Urine Glucose Negative (Negative) Salicylates (<30) mg/dL Urine Opiates Screen Presumptive positive H (None Detect) Acetaminophen mcg/mL Ur Barbiturates Screen None detected (None Detect) Ur Phencyclidine Scrn None detected (None Detect) Ur Amphetamines Screen Presumptive positive H (None Detect) U Benzodiazepines Scrn Presumptive positive H (None Detect) Urine Cocaine Screen None detected (None Detect) U Cannabinoids Screen Presumptive positive H (None Detect) Serum Alcohol (<10) mg/dL Result Diagrams: 01/09/17 18:35 01/09/17 18:35 Lab Statement: Any lab studies that have been ordered have been reviewed, and results considered in the medical decision making process. - EKG 1844 Cardiac Rate: NL - 84 bpm EKG Rhythm: Sinus Rhythm Course/Dx - Course Course Of Treatment: Marly was apparently found in a stupor outdoors. She told [facility] that she took an OD of her klonopin. On arrival, she was easily arousable but prefered to keep her eyes closed and not cooperate. After about an hour, she got up and began to pace the room and demand to be allowed to go home. At the end of my shift, she had been here stable for 5 hours and we were waiting one more to clear her for a MHE. - Diagnoses Provider Diagnoses: suicidal ideation and intent, Mood disorder Discharge - Discharge Plan Condition: Stable Disposition: PSYCHIATRIC FACILITY-OTHER Discharge Disposition Comment: Change of shift Referrals: Don Love NP [Primary Care Provider] - The documentation as recorded by the Eugene haskins Alok accurately reflects the service I personally performed and the decisions made by me, Eduardo Lee MD.
== END 2017-01-10 16:40 ==
LOC: ED 18:21
DX: R45.851 Suicidal ideations (principal); F39 Unspecified mood [affective] disorder; F17.210 Nicotine dependence, cigarettes, uncomplicated
CPT/HCPCS: 36415; 80053; 80307; 80320; 80329; 81003; 81015; 82550; 83605; 85025; 87086; 93005; 96372; 99285; A9270-GY; G0480; J2060

== ENCOUNTER 2017-01-21 16:23 | Emergency (ER) | payer MEDICAID, OTHER ==
[2017-01-21] MEDS ORDERED: Haloperidol TAB* 2 MG PO ONE (17:02)
[2017-01-21] MEDS ORDERED: diPHENhydraMINE PO* 25 MG PO ONE (17:02)
[2017-01-21] MEDS ORDERED: LORazepam TAB(*) 1 MG PO ONE (17:02)
--- NOTE | 2017-01-21 17:22 | ED ---
Psychiatric Complaint - HPI Summary HPI Summary: Patient presents to ED after self-harm of cutting to the bilateral forearms. She was originally brought in for skin care of the wounds. However, on arrival she has asked to be treated for her psych eval and is requesting to speak with MHE. She endorses depression, anxiety, hearing voices and suicidal ideation. Denies homicidal ideation. Patient is well known to [facility] [place]. - History Of Current Complaint Hx Obtained From: Patient Hx Last Menstrual Period: MIRENA IUD ?: No Onset/Duration: Gradual Onset Timing: Constant Severity Initially: Moderate Severity Currently: Severe Character: Depressed, Anxious, Angry, Frustrated Aggravating Factor(s): Nothing Alleviating Factor(s): Medication, Counseling Related History: Positive For: Prior Psychiatric Issues Has Suicidal: Reports: Thoughts, Demonstrates Gesture, Has Prior Attempt(s) - Risk Factor(s) Completed Suicide Risk Factors: Negative <Tasneem Childers - Last Filed: 01/22/17 10:14> <Triston Liu - Last Filed: 01/25/17 08:38> - History Of Current Complaint Chief Complaint: EDMentalHealth Time Seen by Provider: 01/21/17 16:34 - Allergies/Home Medications Allergies/Adverse Reactions: Allergies Allergy/AdvReac Type Severity Reaction Status Date / Time Penicillin V Allergy Severe Hives Verified 01/09/17 18:30 Latex Allergy Intermediate Rash Verified 01/09/17 18:30 Lactose Intolerance (GI) Allergy Diarrhea Verified 01/09/17 18:30 glue Allergy Rash Uncoded 01/09/17 18:30 steri strips Allergy Rash Uncoded 01/09/17 18:30 PMH/Surg Hx/FS Hx/Imm Hx Previously Healthy: Yes Endocrine/Hematology History: Reports: Hx Unexplained Bleeding Denies: Hx Anticoagulant Therapy, Hx Blood Disorders, Hx Thyroid Disease, Other Endocrine/Hematological Disorders - borderline diabetic Comment Only: Hx Diabetes - Borderline Cardiovascular History: Denies: Hx Hypertension, Hx Pacemaker/ICD, Other Cardiovascular Problems/ Disorders Respiratory History: Reports: Hx Asthma - patient denied Denies: Hx Chronic Bronchitis, Hx Chronic Obstructive Pulmonary Disease (COPD ), Hx Cystic Fibrosis, Hx Lung Cancer, Hx Pleural Effusion, Hx Pneumonia, Hx Pulmonary Edema, Hx Pulmonary Embolism, Hx Seasonal Allergies, Hx Sleep Apnea, Other Respiratory Problems/Disorders GI History: Denies: Hx Ulcer, Other GI Disorders History: Reports: Other Problems/Disorders - Urinary Retention and Herpes Denies: Hx Renal Disease Musculoskeletal History: Denies: Other Musculoskeletal History Sensory History: Reports: Hx Contacts or Glasses Denies: Hx Cataracts, Hx Eye Injury, Hx Eye Prosthesis, Hx Glaucoma, Hx Legally Blind, Hx Macular Degeneration, Hx Deafness, Hx Hearing Aid, Hx Hearing Problem, Other Sensory Impairments Opthamlomology History: Reports: Hx Contacts or Glasses Denies: Hx Cataracts, Hx Eye Injury, Hx Eye Prosthesis, Hx Glaucoma, Hx Legally Blind, Hx Macular Degeneration, Other Sensory Impairments Neurological History: Reports: Hx Developmental Delay, Hx Headaches, Hx Seizures - Psuedoseizures Denies: Hx Dementia, Hx Migraine, Hx Nerve Disease, Hx Spinal Cord Injury, Hx Transient Ischemic Attacks (TIA), Other Neuro Impairments/Disorders Psychiatric History: Reports: Hx Anxiety, Hx Attention Deficit Hyperactivity Disorder, Hx Eating Disorder - per prior reports, Hx Depression, Hx Panic Disorder, Hx Post Traumatic Stress Disorder, Hx Inpatient Treatment, Hx Community Mental Health Tx, Hx Bipolar Disorder, Hx Suicide Attempt, Hx of Violent Episodes Against Others - SEE VIOLENCE HX, Hx Substance Abuse, Other Psychiatric Issues/Disorders - COGNITIVELY LIMITED, BORDERLINE PERS D/O Comment Only: Hx Schizophrenia - Schizoaffective Disorder - Cancer History Hx Chemotherapy: No Hx Radiation Therapy: No Hx Palliative Cancer Treatment: No - Immunization History Date of Tetanus Vaccine: UTD Date of Influenza Vaccine: Unk Infectious Disease History: No Infectious Disease History: 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 - Social History Occupation: Unemployed Lives: Alone Alcohol Use: None Alcohol Amount: "drank beer awhile ago" Hx Substance Use: No Substance Use Type: Reports: None Substance Use Comment - Amount & Last Used: denies substance abuse Hx Tobacco Use: Yes Smoking Status (MU): Light Every Day Tobacco Smoker Type: Cigarettes Amount Used/How Often: 4 cigarettes per day Length of Time of Smoking/Using Tobacco: 3 years Have You Smoked in the Last Year: Yes <Tasneem Childers - Last Filed: 01/22/17 10:14> Review of Systems Constitutional: Negative Eyes: Negative Cardiovascular: Negative Respiratory: Negative Positive: no symptoms reported, see HPI Musculoskeletal: Negative Positive: Other Neurological: Negative Psychological: Normal All Other Systems Reviewed And Are Negative: Yes <Tasneem Childers - Last Filed: 01/22/17 10:14> Physical Exam Triage Information Reviewed: Yes Vital Signs On Initial Exam: Initial Vitals Temp Pulse Resp BP Pulse Ox 99.5 F 97 16 146/83 99 01/21/17 17:07 01/21/17 17:07 01/21/17 17:07 01/21/17 17:07 01/21/17 17:07 Vital Signs Reviewed: Yes Appearance: Positive: Well-Appearing, Well-Nourished Skin: Positive: Warm, Skin Color Reflects Adequate Perfusion, Other - multiple lacerations involving the forearms with 4cm laceration to the left forearm with .2cm depth. Eyes: Positive: EOMI, [place] Neck: Positive: Nontender, No Lymphadenopathy Respiratory/Lung Sounds: Positive: Clear to Auscultation, Breath Sounds Present Cardiovascular: Positive: Normal, RRR, Pulses are Symmetrical in both Upper and Lower Extremities Musculoskeletal: Positive: Normal, Strength/ROM Intact Neurological: Positive: Speech Normal Psychiatric: Positive: Anxious, Depressed - [place] Coma Scale Coma Scale Total: 15 <Tasneem Childers - Last Filed: 01/22/17 10:14> Vital Signs On Initial Exam: Initial Vitals Temp Pulse Resp BP Pulse Ox 99.5 F 97 16 146/83 99 01/21/17 17:07 01/21/17 17:07 01/21/17 17:07 01/21/17 17:07 01/21/17 17:07 <Triston Liu - Last Filed: 01/25/17 08:38> Diagnostics - Vital Signs Vital Signs Temp Pulse Resp BP Pulse Ox 01/21/17 17:07 99.5 F 97 16 146/83 99 - Laboratory Result Diagrams: 01/21/17 17:50 01/21/17 17:50 Lab Statement: Any lab studies that have been ordered have been reviewed, and results considered in the medical decision making process. <Tasneem Childers - Last Filed: 01/22/17 10:14> - Vital Signs Vital Signs Temp Pulse Resp BP Pulse Ox 01/22/17 14:05 98.1 F 90 16 104/63 01/22/17 13:24 18 01/22/17 07:06 98.1 F 84 16 122/71 98 01/21/17 17:07 99.5 F 97 16 146/83 99 - Laboratory Lab Results: Lab Results 01/21/17 01/21/17 01/22/17 Range/Units 17:50 17:50 07:53 WBC 10.3 (3.5-10.8) 10^3/ul RBC 4.60 (4.0-5.4) 10^6/ul Hgb 13.2 (12.0-16.0) g/dl Hct 40 (35-47) % MCV 87 (80-97) fL MCH 29 (27-31) pg MCHC 33 (31-36) g/dl RDW 15 (10.5-15) % Plt Count 301 (150-450) 10^3/ul MPV 9 (7.4-10.4) um3 Neut % (Auto) 66.3 (38-83) % Lymph % (Auto) 23.2 L (25-47) % [place] % (Auto) 7.6 (1-9) % Eos % (Auto) 1.2 (0-6) % Baso % (Auto) 1.7 (0-2) % Absolute Neuts (auto) 6.8 (1.5-7.7) 10^3/ul Absolute Lymphs (auto) 2.4 (1.0-4.8) 10^3/ul Absolute Monos (auto) 0.8 (0-0.8) 10^3/ul Absolute Eos (auto) 0.1 (0-0.6) 10^3/ul Absolute Basos (auto) 0.2 (0-0.2) 10^3/ul Absolute Nucleated RBC 0 10^3/ul Nucleated RBC % 0 Sodium 136 (133-145) mmol/L Potassium 3.7 (3.5-5.0) mmol/L Chloride 106 (101-111) mmol/L Carbon Dioxide 21 L (22-32) mmol/L Anion Gap 9 (2-11) mmol/L BUN 12 (6-24) mg/dL Creatinine 0.88 (0.51-0.95) mg/dL Est GFR ( Amer) 98.4 (>60) Est GFR (Non-Af Amer) 76.5 (>60) BUN/Creatinine Ratio 13.6 (8-20) Glucose 97 (70-100) mg/dL Calcium 9.4 (8.6-10.3) mg/dL Total Bilirubin 0.40 (0.2-1.0) mg/dL AST 20 (13-39) U/L ALT 26 (7-52) U/L Alkaline Phosphatase 64 (34-104) U/L Total Protein 7.5 (6.4-8.9) g/dL Albumin 4.4 (3.2-5.2) g/dL Globulin 3.1 (2-4) g/dL Albumin/Globulin Ratio 1.4 (1-3) TSH 0.94 (0.34-5.60) mcIU/mL Urine Color Yellow Urine Appearance Cloudy Urine pH 6.0 (5-9) Ur Specific [place] 1.029 (1.010-1.030) Urine Protein 1+(30 mg/dl) H (Negative) Urine Ketones Trace H (Negative) Urine Blood Negative (Negative) Urine Nitrate Negative (Negative) Urine Bilirubin Negative (Negative) Urine Urobilinogen Negative (Negative) Ur Leukocyte Esterase 3+ H (Negative) Urine WBC (Auto) 3+(>20/hpf) H (Absent) Urine RBC (Auto) Trace(0-2/hpf) (Absent) Ur Squamous Epith Cells Present H (Absent) Urine Bacteria 1+ H (Absent) Urine Glucose Negative (Negative) Urine Ascorbic Acid * H (Negative) Urine Test (Negative) Salicylates < 2.50 (<30) mg/dL Urine Opiates Screen (None Detect) Acetaminophen < 15 mcg/mL Ur Barbiturates Screen (None Detect) Ur Phencyclidine Scrn (None Detect) Ur Amphetamines Screen (None Detect) U Benzodiazepines Scrn (None Detect) Urine Cocaine Screen (None Detect) U Cannabinoids Screen (None Detect) Serum Alcohol < 10 (<10) mg/dL 06/12/17 06/12/17 Range/Units 07:53 07:53 WBC (3.5-10.8) 10^3/ul RBC (4.0-5.4) 10^6/ul Hgb (12.0-16.0) g/dl Hct (35-47) % MCV (80-97) fL MCH (27-31) pg MCHC (31-36) g/dl RDW (10.5-15) % Plt Count (150-450) 10^3/ul MPV (7.4-10.4) um3 Neut % (Auto) (38-83) % Lymph % (Auto) (25-47) % [place] % (Auto) (1-9) % Eos % (Auto) (0-6) % Baso % (Auto) (0-2) % Absolute Neuts (auto) (1.5-7.7) 10^3/ul Absolute Lymphs (auto) (1.0-4.8) 10^3/ul Absolute Monos (auto) (0-0.8) 10^3/ul Absolute Eos (auto) (0-0.6) 10^3/ul Absolute Basos (auto) (0-0.2) 10^3/ul Absolute Nucleated RBC 10^3/ul Nucleated RBC % Sodium (133-145) mmol/L Potassium (3.5-5.0) mmol/L Chloride (101-111) mmol/L Carbon Dioxide (22-32) mmol/L Anion Gap (2-11) mmol/L BUN (6-24) mg/dL Creatinine (0.51-0.95) mg/dL Est GFR ( Amer) (>60) Est GFR (Non-Af Amer) (>60) BUN/Creatinine Ratio (8-20) Glucose (70-100) mg/dL Calcium (8.6-10.3) mg/dL Total Bilirubin (0.2-1.0) mg/dL AST (13-39) U/L ALT (7-52) U/L Alkaline Phosphatase (34-104) U/L Total Protein (6.4-8.9) g/dL Albumin (3.2-5.2) g/dL Globulin (2-4) g/dL Albumin/Globulin Ratio (1-3) TSH (0.34-5.60) mcIU/mL Urine Color Urine Appearance Urine pH (5-9) Ur Specific [place] (1.010-1.030) Urine Protein (Negative) Urine Ketones (Negative) Urine Blood (Negative) Urine Nitrate (Negative) Urine Bilirubin (Negative) Urine Urobilinogen (Negative) Ur Leukocyte Esterase (Negative) Urine WBC (Auto) (Absent) Urine RBC (Auto) (Absent) Ur Squamous Epith Cells (Absent) Urine Bacteria (Absent) Urine Glucose (Negative) Urine Ascorbic Acid (Negative) Urine Test Negative (Negative) Salicylates (<30) mg/dL Urine Opiates Screen None detected (None Detect) Acetaminophen mcg/mL Ur Barbiturates Screen None detected (None Detect) Ur Phencyclidine Scrn None detected (None Detect) Ur Amphetamines Screen None detected (None Detect) U Benzodiazepines Scrn None detected (None Detect) Urine Cocaine Screen None detected (None Detect) U Cannabinoids Screen None detected (None Detect) Serum Alcohol (<10) mg/dL Result Diagrams: 01/21/17 17:50 01/21/17 17:50 Lab Statement: Any lab studies that have been ordered have been reviewed, and results considered in the medical decision making process. <Triston Liu - Last Filed: 01/25/17 08:38> Course/Dx - Course Course Of Treatment: Patient presents with multiple lacerations involving the forearms with 4cm laceration to the left forearm with .2cm depth. Endorses suicidal ideations and depression. Self-harm. Hx of psych issues. Laceration cleaned with NS. Skin glue applied. Steri strips. Wrapped with gauze. Patient asking for MHE d/t suicidal thoughts. - Differential Dx/Clinical Impression Differential Diagnosis/HQI/PQRI: Positive: Anxiety, Depression, Suicidal Ideation, Suicidal Gesture <Tasneem Childers - Last Filed: 01/22/17 10:14> <Triston Liu - Last Filed: 01/25/17 08:38> - Differential Dx/Clinical Impression Provider Diagnosis: Self-harm Discharge <Tasneem Childers - Last Filed: 01/22/17 10:14> <Triston Liu - Last Filed: 01/25/17 08:38> - Discharge Plan Condition: Stable Disposition: [facility] Referrals: Don Love, [facility] [Primary Care Provider] -
[2017-01-21] MEDS: Nicotine GUM* 2 MG PO PRN ×3 (17:55→23:00)
[2017-01-21 18:01] LABS: Hematocrit 40 % (35-47); Hemoglobin 13.2 g/dl (12.0-16.0); Mean Corpuscular HGB Conc 33 g/dl (31-36); Mean Corpuscular Hemoglobin 29 pg (27-31); Mean Corpuscular Volume 87 fL (80-97); Mean Platelet Volume 9 um3 (7.4-10.4); Red Cell Distribution Width 15 % (10.5-15); White Blood Count 10.3 10^3/ul (3.5-10.8)
[2017-01-21 18:29] LABS: ALT 26 U/L (7-52); AST 20 U/L (13-39); Albumin 4.4 g/dL (3.2-5.2); Alkaline Phosphatase 64 U/L (34-104); Anion Gap 9 mmol/L (2-11); BUN/Creatinine Ratio 13.6 (8-20); Blood Urea Nitrogen 12 mg/dL (6-24); CO2 Carbon Dioxide 21 mmol/L (22-32); Calcium 9.4 mg/dL (8.6-10.3); Chloride 106 mmol/L (101-111); EGFR African American 98.4 (>60); EGFR Non-African American 76.5 (>60); Globulin 3.1 g/dL (2-4); Glucose 97 mg/dL (70-100); Potassium 3.7 mmol/L (3.5-5.0); Sodium 136 mmol/L (133-145); Total Protein 7.5 g/dL (6.4-8.9)
[2017-01-21 18:30] LABS: Acetaminophen < 15 mcg/mL; Alcohol < 10 mg/dL (<10); Salicylate < 2.50 mg/dL (<30)
[2017-01-21 18:40] LABS: TSH (Thyroid Stimulating Horm) 0.94 mcIU/mL (0.34-5.60)
[2017-01-21] MEDS ORDERED: diPHENhydraMINE PO* 50 MG PO ONE (19:35)
[2017-01-21] MEDS ORDERED: Haloperidol TAB* 5 MG PO ONE (19:35)
--- NOTE | 2017-01-21 19:40 | ED ---
Progress - Progress Note Progress Note: Pt becoming agitated 2 hours out from taking benadryl 25mg and HALDOL 2MG - spoke w/ TEAGAN and there currently is no known medication structure for her tx nor advise on avoiding certain meds other than ativan may increase her energy. Ordered haldol 5mg and benadryl 50mg as pt is tolerant of these meds. Also spoke w/ Ananda windows system admin who is working on next step of care for her MH pathology. ELIANE DANG Course/Dx - Course Course Of Treatment: Patient presents with multiple lacerations involving the forearms with 4cm laceration to the left forearm with .2cm depth. Endorses suicidal ideations and depression. Self-harm. Hx of psych issues. Laceration cleaned with NS. Skin glue applied. Steri strips. Wrapped with gauze. Patient asking for MHE d/t suicidal thoughts. - Diagnoses Provider Diagnoses: Self-harm
[2017-01-21] MEDS ORDERED: traZODone TAB* 100 MG PO ONE (20:39)
[2017-01-21] MEDS ORDERED: traZODone TAB* 50 MG TAB ONE (21:11)
[2017-01-21] MEDS ORDERED: traZODone TAB* 50 MG TAB PO ONE (21:14)
[2017-01-22] MEDS: Nicotine GUM* 2 MG PO PRN ×5 (01:14→14:02)
[2017-01-22] MEDS ORDERED: chlorproMAZINE TAB* 25 MG PO ONE ×2 (07:18→12:35)
[2017-01-22 08:28] LABS: Manual Entry Verification AS; UR Preg Internal Control QC Line Present; UR Preg Kit Lot# 6090065
[2017-01-22 08:35] LABS: Benzodiazepine Urine Screen None Detected (None Detect)
[2017-01-22 08:40] LABS: Urine Bacteria 1+ (Absent); Urine Bilirubin Negative (Negative); Urine Glucose Negative (Negative); Urine Nitrite Negative (Negative)
[2017-01-22] MEDS ORDERED: LORazepam TAB(*) 1 MG PO ONE (13:03)
[2017-01-22 14:06] VITALS: BP 104/63
--- NOTE | 2017-01-24 19:14 | ED ---
Progress - Progress Note Progress Note: Pt becoming agitated 2 hours out from taking benadryl 25mg and HALDOL 2MG - spoke w/ TEAGAN and there currently is no known medication structure for her tx nor advise on avoiding certain meds other than ativan may increase her energy. Ordered haldol 5mg and benadryl 50mg as pt is tolerant of these meds. Also spoke w/ Ananda afternoon babysitter who is working on next step of care for her MH pathology. ELIANE DANG UPDATE: pt's urine from 01/22/2017 reveals strep group B and normal devonte of small amounts - no UTI sx - this was simply collected as routine med clearance for psych pt/MH eval. No tx necessary at this time - Consult/PCP Time Called: 19:43 Course/Dx - Course Course Of Treatment: Patient presents with multiple lacerations involving the forearms with 4cm laceration to the left forearm with .2cm depth. Endorses suicidal ideations and depression. Self-harm. Hx of psych issues. Laceration cleaned with NS. Skin glue applied. Steri strips. Wrapped with gauze. Patient asking for MHE d/t suicidal thoughts. - Diagnoses Provider Diagnoses: Self-harm
== END 2017-01-22 14:05 | disposition short-term general hospital (02) ==
LOC: ED 16:23
DX: S51.812A Laceration without foreign body of left forearm, initial encounter (principal); S51.811A Laceration without foreign body of right forearm, initial encounter; X78.9XXA Intentional self-harm by unspecified sharp object, initial encounter; Y93.9 Activity, unspecified; Y92.9 Unspecified place or not applicable; R45.851 Suicidal ideations; F41.9 Anxiety disorder, unspecified; F32.9 Major depressive disorder, single episode, unspecified; Z32.02 Encounter for pregnancy test, result negative; Z91.040 Latex allergy status; Z88.0 Allergy status to penicillin; Z91.048 Other nonmedicinal substance allergy status; R73.03 Prediabetes; F17.210 Nicotine dependence, cigarettes, uncomplicated
CPT/HCPCS: 12002; 36415; 80053; 80307; 80320; 80329; 81003; 81015; 81025; 84443; 85025; 87077; 87086; 93005; 99285; A9270-GY; G0480

== ENCOUNTER 2017-01-25 14:06 | Inpatient (IN) | payer MEDICAID, OTHER ==
[2017-01-25 15:04] LABS: Hematocrit 39 % (35-47); Hemoglobin 13.1 g/dl (12.0-16.0); Mean Corpuscular HGB Conc 34 g/dl (31-36); Mean Corpuscular Hemoglobin 29 pg (27-31); Mean Corpuscular Volume 87 fL (80-97); Mean Platelet Volume 9 um3 (7.4-10.4); Red Blood Count 4.48 10^6/ul (4.0-5.4); Red Cell Distribution Width 15 % (10.5-15); White Blood Count 15.2 10^3/ul (3.5-10.8)
[2017-01-25 15:29] LABS: ALT 26 U/L (7-52); AST 18 U/L (13-39); Albumin 4.3 g/dL (3.2-5.2); Alkaline Phosphatase 65 U/L (34-104); Anion Gap 7 mmol/L (2-11); BUN/Creatinine Ratio 18.5 (8-20); Blood Urea Nitrogen 15 mg/dL (6-24); CO2 Carbon Dioxide 24 mmol/L (22-32); Chloride 106 mmol/L (101-111); EGFR African American 108.3 (>60); EGFR Non-African American 84.2 (>60); Glucose 101 mg/dL (70-100); Potassium 3.9 mmol/L (3.5-5.0); Sodium 137 mmol/L (133-145); Total Protein 7.3 g/dL (6.4-8.9)
[2017-01-25 15:49] LABS: Acetaminophen < 15 mcg/mL; Alcohol < 10 mg/dL (<10); Salicylate < 2.50 mg/dL (<30)
[2017-01-25] MEDS ORDERED: Nicotine GUM* 2 MG ONE (17:14)
[2017-01-25] MEDS: Nicotine GUM* 2 MG PO PRN ×3 (17:15→22:13)
[2017-01-25 20:09] LABS: Urine Bacteria Absent (Absent); Urine Bilirubin Negative (Negative); Urine Glucose Negative (Negative); Urine Nitrite Negative (Negative)
[2017-01-25 20:17] LABS: Benzodiazepine Urine Screen None Detected (None Detect)
[2017-01-25] MEDS ORDERED: Divalproex ER TAB(*) 500 MG ONE (23:05)
[2017-01-25] MEDS ORDERED: risperiDONE TAB* 2 MG ONE (23:05)
[2017-01-25] MEDS ORDERED: chlorproMAZINE TAB* 100 MG ONE (23:05)
[2017-01-25] MEDS ORDERED: Topiramate TAB(*) 25 MG ONE (23:05)
[2017-01-25] MEDS ORDERED: chlorproMAZINE TAB* 25 MG ONE (23:05)
[2017-01-25] MEDS ORDERED: Nicotine Inhaler* 10 MG AMP INH PRN (23:22)
[2017-01-25] MEDS ORDERED: Mouth Piece, Nicotine* 1 EACH CARTRIDGE INH SCH (23:22)
[2017-01-25] MEDS ORDERED: Acetaminophen TAB* 325 MG PO PRN (23:22)
[2017-01-25] MEDS ORDERED: Al Hydrox/Mg Hydrox/Simet LIQ* 30 ML UDC PO PRN (23:22)
[2017-01-25] MEDS ORDERED: chlorproMAZINE TAB* 25 MG PO PRN (23:29)
[2017-01-26] MEDS: Nicotine GUM* 2 MG PO PRN ×2 (08:00→10:00)
[2017-01-26] MEDS ORDERED: Divalproex DR TAB(*) 500 MG PO SCH (09:00)
[2017-01-26] MEDS ORDERED: Sertraline* 50 MG TAB PO SCH (09:00)
[2017-01-26] MEDS ORDERED: Topiramate TAB(*) 25 MG PO SCH ×2 (09:00→21:00)
[2017-01-26] MEDS ORDERED: Haloperidol TAB* 5 MG PO PRN (10:35)
[2017-01-26 10:36] VITALS: BP 129/87
--- NOTE | 2017-01-26 12:17 | HP ---
HISTORY AND PHYSICAL AND DISCHARGE SUMMARY: DATE OF ADMISSION: 01/25/17 IDENTIFYING DATA: Marly Pérez is a 26-year-old mentally disabled female with a history of numerous psychiatric hospitalizations, severe borderline personality disorder, chronic self injury and suicidal behavior, borderline intellectual functioning, history of aggression, atypical perceptual symptoms and dissociative symptoms. She was admitted to the psychiatric unit within a day of her last psychiatric discharge reporting taking an overdose with Ambien and Haldol in a suicide attempt gesture. HISTORY OF PRESENT ILLNESS: This is an update to the history and physical associated with the Marly's psychiatric hospitalization at our facility in December. Please see that report by Dr. Baez, dated 12/28/16 for details of her most distant history. You may also refer to an updated history and physical that I entered on January 01. Marly's last psychiatric discharge from our facility was January 04. Since then, she has had two psychiatric hospitalizations at [facility]. She was referred there out of our emergency room. She reports being released yesterday and said that she overdosed with Ambien and Haldol. Today, she states that she does not know if she really wanted to hurt herself with the overdose, but in the emergency room, she presents herself as being suicidal, depressed and wanting help and "higher level of care." Today she was in good spirts, jovial with a sense of humor. She wants to go home. She affirms she will follow up with the clinic. She denies ideas of harming herself. MEDICATIONS: Her medication list was extensive when reconciled; however, she reports only taking Topamax basically as I had directed her and haloperidol prescription. None of the other medications listed. She is interested in continuing them. She denies any health problems. Denies use of alcohol and drugs when outside the hospital. Denies ideas of hurting anyone. She reports she is not with her ex- girlfriend and has been having conflict over it. She denies bothersome anxiety at that time. Reported that she has not been sleeping well and denies symptoms consistent with persistent depression. MENTAL STATUS EXAMINATION: Obese, 28ish, female with good hygiene. Normal psychomotor activity. She has multiple healed wounds over her arms and an abrasion on her forehead. She is superficially cooperative, makes good eye contact and smiles spontaneously. Her speech is terse, but spontaneous. Mood is described as "fine." Affect is stable, euthymic. Thought process is impoverished, but goal oriented. Content: Negative for suicidal, homicidal or paranoid ideation. Sensorium is clear. She is alert and oriented x3. Insight and judgment is poor and impulse control is poor. UPDATED PHYSICAL ASSESSMENT: VITAL SIGNS: Temperature is 98.6, blood pressure is 129/87, pulse is 100, respiratory rate is 16. ADMISSION LABORATORY STUDIES: CBC, had white blood count of 15.2, with 11.2% lymphocytes, 12.7 absolute neutrophils. Comprehensive panel: High glucose of 101. test was negative. Urinalysis had 1+ protein, 2+ leukocyte esterase, 1+ white blood cell and red blood cells, squamous epithelial cells and amorphous crystals. Toxicology screen is negative for Tylenol, alcohol, or salicylates. Electroencephalogram dated 01/03/17 and available after the patient's last discharge with a mildly abnormal waking and drowsy EEG. There were very occasional higher amplitude theta slowing with the waking background. Given the patient's history of idiopathic seizures, the findings could have been related to that condition. UPDATED REVIEW OF SYSTEMS: Noncontributory. No indication for new physical examination. IMPRESSION: Marly is medically stable for psychiatric hospitalization. She had a mildly abnormal EEG associated with her last psychiatric hospitalization where I had been concerned that she may have been having some level of seizure activity and restarted Topamax. She appears to be doing better on this basis now, perhaps because she has taken the medicine. CLINICAL SUMMARY: Typical presentation for Marly, a 26-year-old female with severe chronic borderline personality disorder, chronic suicidal and parasuicidal behavior and intellectual deficits. She presented reporting some suicidal behavior of apparent low medical and psychological seriousness within hours after her last psychiatric discharge. She presented in distress and has stabilized already. She has had severe risk for negative therapeutic reaction if retained in the hospital when stabilized and it is appropriate to discharge her at this time. Risk concern centers on suicidal behavior. The risk with Marly is chronic and high. At this point, immediate acute risk is assessed as low based on her pleasant frame of mind, her benign current behavior and ideation and low current symptom burden. Her symptom mix and condition is extremely fluid and it is impossible to predict what will happen to affect her acute risk as the time goes by. Standard of care is to provide a patient with this profile with a brief hospitalization to achieve immediate stabilization; this has been accomplished. ADMISSION DIAGNOSES: 1. Mood disorder. 2. Borderline personality disorder. 3. Borderline intellectual functioning. 4. Posttraumatic stress disorder. 5. Adjustment disorder. 6. History of mental symptoms secondary to general medical condition ( idiopathic epilepsy). TREATMENT PLAN: Brief one day psychiatric hospitalization on the mental health unit, provide individual psychotherapeutic supports. Medication management will involve reconciling her regimen to haloperidol 5 mg b.i.d. and Topamax 50 mg b.i.d. DISCHARGE PLAN: Involves coordination with outpatient care at [facility]. The patient strengths are adequate baseline health and her positive help seeking behavior. Target symptoms were suicidal ideation and behavior, elevated distress, and dysphoria; these have resolved. [id number]/[facility] #: [id number] NEIL
--- NOTE | 2017-01-26 14:11 | ED ---
marva Lofton Timothy, scribed for Eduardo Lee MD on 01/25/17 at 1450 . Substance Abuse/Use - HPI Summary HPI Summary: Marly Pérez is a 26 yo female presenting to [facility] with substance overdose after taking 14 ambien tablets and 1-2 haldol tablets at approximately 1230 today. She is not in any current pain. She denies any other form of self- injury. Her MHx includes borderline DM, herpes, schizoaffective disorder, pseudoseizures, SIB, urinary retention, auditory hallucination, bipolar disorder , panic disorder, eating disorder, tobacco use, vioence against others, suicide attempt, borderline personality disorder, ADHD, PTSD, VRE, developmental delay. - History Of Current Complaint Chief Complaint: EDOverdose Stated Complaint: 941 Time Seen by Provider: 01/25/17 14:20 Hx Obtained From: Patient Hx Last Menstrual Period: MIRENA IUD ?: No Onset/Duration of Drug/ETOH Abuse: Hours Ingestion History: Type/Name Of Drug - ambien, haldol, Amount Ingested - 14, 1- 2 respectively, Approximate Time Of Ingestion - 1345 Overdose Characteristics: Oral Severity Initially: Moderate Severity Currently: Moderate Character: Stuporous Associated Signs And Symptoms: Other: - stuporous Related Hx: Drug/Alcohol Last Used @ - 1230 - Allergies/Home Medications Allergies/Adverse Reactions: Allergies Allergy/AdvReac Type Severity Reaction Status Date / Time Penicillin V Allergy Severe Hives Verified 01/09/17 18:30 Latex Allergy Intermediate Rash Verified 01/09/17 18:30 Lactose Intolerance (GI) Allergy Diarrhea Verified 01/09/17 18:30 glue Allergy Rash Uncoded 01/09/17 18:30 steri strips Allergy Rash Uncoded 01/09/17 18:30 Home Medications: Home Medications Haloperidol TAB* [Haldol TAB*] 5 mg PO BID PRN 01/25/17 [History Confirmed 01/25] PMH/Surg Hx/FS Hx/Imm Hx Endocrine/Hematology History: Reports: Hx Unexplained Bleeding Denies: Hx Anticoagulant Therapy, Hx Blood Disorders, Hx Thyroid Disease, Other Endocrine/Hematological Disorders - borderline diabetic Comment Only: Hx Diabetes - Borderline Cardiovascular History: Denies: Hx Hypertension, Hx Pacemaker/ICD, Other Cardiovascular Problems/ Disorders Respiratory History: Reports: Hx Asthma - patient denied Denies: Hx Chronic Bronchitis, Hx Chronic Obstructive Pulmonary Disease (COPD ), Hx Cystic Fibrosis, Hx Lung Cancer, Hx Pleural Effusion, Hx Pneumonia, Hx Pulmonary Edema, Hx Pulmonary Embolism, Hx Seasonal Allergies, Hx Sleep Apnea, Other Respiratory Problems/Disorders GI History: Denies: Hx Ulcer, Other GI Disorders History: Reports: Other Problems/Disorders - Urinary Retention and Herpes Denies: Hx Renal Disease Musculoskeletal History: Denies: Other Musculoskeletal History Sensory History: Reports: Hx Contacts or Glasses Denies: Hx Cataracts, Hx Eye Injury, Hx Eye Prosthesis, Hx Glaucoma, Hx Legally Blind, Hx Macular Degeneration, Hx Deafness, Hx Hearing Aid, Hx Hearing Problem, Other Sensory Impairments Opthamlomology History: Reports: Hx Contacts or Glasses Denies: Hx Cataracts, Hx Eye Injury, Hx Eye Prosthesis, Hx Glaucoma, Hx Legally Blind, Hx Macular Degeneration, Other Sensory Impairments Neurological History: Reports: Hx Developmental Delay, Hx Headaches, Hx Seizures - Psuedoseizures Denies: Hx Dementia, Hx Migraine, Hx Nerve Disease, Hx Spinal Cord Injury, Hx Transient Ischemic Attacks (TIA), Other Neuro Impairments/Disorders Psychiatric History: Reports: Hx Anxiety, Hx Attention Deficit Hyperactivity Disorder, Hx Eating Disorder - per prior reports, Hx Depression, Hx Panic Disorder, Hx Post Traumatic Stress Disorder, Hx Inpatient Treatment, Hx Community Mental Health Tx, Hx Bipolar Disorder, Hx Suicide Attempt, Hx of Violent Episodes Against Others - SEE VIOLENCE HX, Hx Substance Abuse, Other Psychiatric Issues/Disorders - COGNITIVELY LIMITED, BORDERLINE PERS D/O Comment Only: Hx Schizophrenia - Schizoaffective Disorder - Cancer History Hx Chemotherapy: No Hx Radiation Therapy: No Hx Palliative Cancer Treatment: No - Immunization History Date of Tetanus Vaccine: UTD Date of Influenza Vaccine: Unk Infectious Disease History: Reports: 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 - Social History Alcohol Use: None Alcohol Amount: "drank beer awhile ago" Hx Substance Use: No Substance Use Type: Reports: None Substance Use Comment - Amount & Last Used: denies substance abuse Hx Tobacco Use: Yes Smoking Status (MU): Heavy Every Day Tobacco Smoker Type: Cigarettes Amount Used/How Often: 4 cigarettes per day Length of Time of Smoking/Using Tobacco: 3 years Have You Smoked in the Last Year: Yes Review of Systems Constitutional: Negative Eyes: Negative ENT: Negative Cardiovascular: Negative Respiratory: Negative Gastrointestinal: Negative Genitourinary: Negative Musculoskeletal: Negative Skin: Negative Neurological: Negative Positive: Depressed - lethargic S/P OD All Other Systems Reviewed And Are Negative: Yes Physical Exam Triage Information Reviewed: Yes Vital Signs On Initial Exam: Initial Vitals Temp Pulse Resp BP Pulse Ox 98.7 F 120 20 136/73 97 01/25/17 14:12 01/25/17 14:12 01/25/17 14:12 01/25/17 14:12 01/25/17 14:12 Vital Signs Reviewed: Yes Appearance: Positive: No Pain Distress, Well-Nourished, Ill-Appearing Skin: Positive: Warm, Skin Color Reflects Adequate Perfusion, Dry Head/Face: Positive: Normal Head/Face Inspection Eyes: Positive: Normal ENT: Positive: Normal ENT inspection Neck: Positive: Supple, Nontender Respiratory/Lung Sounds: Positive: Clear to Auscultation, Breath Sounds Present Cardiovascular: Positive: RRR Abdomen Description: Positive: Nontender, Soft Bowel Sounds: Positive: Present Musculoskeletal: Positive: Normal Neurological: Positive: Other - stuporous, but aroused to voice Psychiatric: Positive: Depressed Diagnostics - Vital Signs Vital Signs Temp Pulse Resp BP Pulse Ox 01/25/17 14:13 119 98 01/25/17 14:12 98.7 F 120 20 136/73 97 - Laboratory Lab Results: Lab Results 01/25/17 01/25/17 01/25/17 Range/Units 14:55 14:55 14:55 WBC 15.2 H (3.5-10.8) 10^3/ul RBC 4.48 (4.0-5.4) 10^6/ul Hgb 13.1 (12.0-16.0) g/dl Hct 39 (35-47) % MCV 87 (80-97) fL MCH 29 (27-31) pg MCHC 34 (31-36) g/dl RDW 15 (10.5-15) % Plt Count 286 (150-450) 10^3/ul MPV 9 (7.4-10.4) um3 Neut % (Auto) 83.0 (38-83) % Lymph % (Auto) 11.2 L (25-47) % Z[place] % (Auto) 5.1 (1-9) % Eos % (Auto) 0.1 (0-6) % Baso % (Auto) 0.6 (0-2) % Absolute Neuts (auto) 12.7 H (1.5-7.7) 10^3/ul Absolute Lymphs (auto) 1.7 (1.0-4.8) 10^3/ul Absolute Monos (auto) 0.8 (0-0.8) 10^3/ul Absolute Eos (auto) 0 (0-0.6) 10^3/ul Absolute Basos (auto) 0.1 (0-0.2) 10^3/ul Absolute Nucleated RBC 0.01 10^3/ul Nucleated RBC % 0.1 Sodium 137 (133-145) mmol/L Potassium 3.9 (3.5-5.0) mmol/L Chloride 106 (101-111) mmol/L Carbon Dioxide 24 (22-32) mmol/L Anion Gap 7 (2-11) mmol/L BUN 15 (6-24) mg/dL Creatinine 0.81 (0.51-0.95) mg/dL Est GFR ( Amer) 108.3 (>60) Est GFR (Non-Af Amer) 84.2 (>60) BUN/Creatinine Ratio 18.5 (8-20) Glucose 101 H (70-100) mg/dL Lactic Acid 1.4 (0.5-2.0) mmol/L Calcium 9.0 (8.6-10.3) mg/dL Total Bilirubin 0.30 (0.2-1.0) mg/dL AST 18 (13-39) U/L ALT 26 (7-52) U/L Alkaline Phosphatase 65 (34-104) U/L Total Protein 7.3 (6.4-8.9) g/dL Albumin 4.3 (3.2-5.2) g/dL Globulin 3.0 (2-4) g/dL Albumin/Globulin Ratio 1.4 (1-3) Beta HCG, Quant < 0.60 mIU/mL Urine Color Urine Appearance Urine pH (5-9) Ur Specific [place] (1.010-1.030) Urine Protein (Negative) Urine Ketones (Negative) Urine Blood (Negative) Urine Nitrate (Negative) Urine Bilirubin (Negative) Urine Urobilinogen (Negative) Ur Leukocyte Esterase (Negative) Urine WBC (Auto) (Absent) Urine RBC (Auto) (Absent) Ur Squamous Epith Cells (Absent) Amorphous Crystals (Absent) Urine Bacteria (Absent) Urine Glucose (Negative) Salicylates < 2.50 (<30) mg/dL Urine Opiates Screen (None Detect) Acetaminophen < 15 mcg/mL Ur Barbiturates Screen (None Detect) Ur Phencyclidine Scrn (None Detect) Ur Amphetamines Screen (None Detect) U Benzodiazepines Scrn (None Detect) Urine Cocaine Screen (None Detect) U Cannabinoids Screen (None Detect) Serum Alcohol < 10 (<10) mg/dL 01/25/17 01/25/17 Range/Units 19:51 19:51 WBC (3.5-10.8) 10^3/ul RBC (4.0-5.4) 10^6/ul Hgb (12.0-16.0) g/dl Hct (35-47) % MCV (80-97) fL MCH (27-31) pg MCHC (31-36) g/dl RDW (10.5-15) % Plt Count (150-450) 10^3/ul MPV (7.4-10.4) um3 Neut % (Auto) (38-83) % Lymph % (Auto) (25-47) % Z[place] % (Auto) (1-9) % Eos % (Auto) (0-6) % Baso % (Auto) (0-2) % Absolute Neuts (auto) (1.5-7.7) 10^3/ul Absolute Lymphs (auto) (1.0-4.8) 10^3/ul Absolute Monos (auto) (0-0.8) 10^3/ul Absolute Eos (auto) (0-0.6) 10^3/ul Absolute Basos (auto) (0-0.2) 10^3/ul Absolute Nucleated RBC 10^3/ul Nucleated RBC % Sodium (133-145) mmol/L Potassium (3.5-5.0) mmol/L Chloride (101-111) mmol/L Carbon Dioxide (22-32) mmol/L Anion Gap (2-11) mmol/L BUN (6-24) mg/dL Creatinine (0.51-0.95) mg/dL Est GFR ( Amer) (>60) Est GFR (Non-Af Amer) (>60) BUN/Creatinine Ratio (8-20) Glucose (70-100) mg/dL Lactic Acid (0.5-2.0) mmol/L Calcium (8.6-10.3) mg/dL Total Bilirubin (0.2-1.0) mg/dL AST (13-39) U/L ALT (7-52) U/L Alkaline Phosphatase (34-104) U/L Total Protein (6.4-8.9) g/dL Albumin (3.2-5.2) g/dL Globulin (2-4) g/dL Albumin/Globulin Ratio (1-3) Beta HCG, Quant mIU/mL Urine Color Yellow Urine Appearance Cloudy Urine pH 7.0 (5-9) Ur Specific [place] 1.028 (1.010-1.030) Urine Protein 1+(30 mg/dl) H (Negative) Urine Ketones Negative (Negative) Urine Blood Negative (Negative) Urine Nitrate Negative (Negative) Urine Bilirubin Negative (Negative) Urine Urobilinogen Negative (Negative) Ur Leukocyte Esterase 2+ H (Negative) Urine WBC (Auto) 1+(6-10/hpf) H (Absent) Urine RBC (Auto) 1+(3-5/hpf) H (Absent) Ur Squamous Epith Cells Present H (Absent) Amorphous Crystals Present H (Absent) Urine Bacteria Absent (Absent) Urine Glucose Negative (Negative) Salicylates (<30) mg/dL Urine Opiates Screen None detected (None Detect) Acetaminophen mcg/mL Ur Barbiturates Screen None detected (None Detect) Ur Phencyclidine Scrn None detected (None Detect) Ur Amphetamines Screen None detected (None Detect) U Benzodiazepines Scrn None detected (None Detect) Urine Cocaine Screen None detected (None Detect) U Cannabinoids Screen None detected (None Detect) Serum Alcohol (<10) mg/dL Result Diagrams: 01/25/17 14:55 01/25/17 14:55 Lab Statement: Any lab studies that have been ordered have been reviewed, and results considered in the medical decision making process. - EKG 1444 Cardiac Rate: NL - 116 BPM EKG Interpretation: Sinus tachycardia @ 116 BPM, nonspecific changes, consistent with 01/21/17 Course/Dx - Course Assessment/Plan: Marly Pérez is a 26 yo female [facility] with substance overdose after taking 14 ambien tablets and 1-2 haldol tablets at approximatel 1345 today. Pt medication list reviewed this visit. She is medically clear for MHUE at 2007 which is 6 hours after her ingestion. After MHUE, she will be admitted to [facility] for further evaluation. - Diagnoses Provider Diagnoses: Overdose Discharge - Discharge Plan Condition: Improved Disposition: ADMITTED TO [facility] Discharge Disposition Comment: admission for further evaluation and treatment The documentation as recorded by the marva haskins Timothy accurately reflects the service I personally performed and the decisions made by me, Eduardo Lee MD.
[2017-01-26] MEDS ORDERED: risperiDONE TAB* 2 MG PO SCH (18:00)
[2017-01-26] MEDS ORDERED: chlorproMAZINE TAB* 100 MG PO SCH (21:00)
== END 2017-01-26 11:25 | disposition home or self-care (01) | DRG 753 ==
LOC: ED 14:06 → BSU 21:56
PROVIDERS: ADMIT Internal Medicine; ATTEND Psychiatry & Neurology Psychiatry
DX: F39 Unspecified mood [affective] disorder (principal); F60.3 Borderline personality disorder; R41.83 Borderline intellectual functioning; F43.10 Post-traumatic stress disorder, unspecified; F43.20 Adjustment disorder, unspecified
CPT/HCPCS: 36415; 80053; 80307; 80320; 80329; 81003; 81015; 83605; 84702; 85025; 87086; 93005; A9270-GY; G0480

== ENCOUNTER 2017-01-31 16:25 | Inpatient (IN) | payer MEDICAID, OTHER ==
[2017-01-31] MEDS ORDERED: Nicotine GUM* 2 MG ONE (17:59)
[2017-01-31] MEDS: Nicotine GUM* 2 MG PO PRN (18:03)
[2017-01-31 20:04] LABS: Hematocrit 41 % (35-47); Hemoglobin 13.6 g/dl (12.0-16.0); Mean Corpuscular HGB Conc 33 g/dl (31-36); Mean Corpuscular Hemoglobin 29 pg (27-31); Mean Corpuscular Volume 87 fL (80-97); Mean Platelet Volume 10 um3 (7.4-10.4); Red Blood Count 4.72 10^6/ul (4.0-5.4); Red Cell Distribution Width 15 % (10.5-15); White Blood Count 13.7 10^3/ul (3.5-10.8)
[2017-01-31 20:16] LABS: ALT 18 U/L (7-52); AST 17 U/L (13-39); Acetaminophen < 15 mcg/mL; Albumin 4.3 g/dL (3.2-5.2); Alcohol < 10 mg/dL (<10); Alkaline Phosphatase 77 U/L (34-104); Anion Gap 8 mmol/L (2-11); BUN/Creatinine Ratio 17.6 (8-20); Blood Urea Nitrogen 15 mg/dL (6-24); CO2 Carbon Dioxide 22 mmol/L (22-32); Calcium 9.3 mg/dL (8.6-10.3); Chloride 109 mmol/L (101-111); EGFR African American 102.4 (>60); EGFR Non-African American 79.6 (>60); Globulin 3.2 g/dL (2-4); Glucose 85 mg/dL (70-100); Potassium 3.7 mmol/L (3.5-5.0); Salicylate < 2.50 mg/dL (<30); Sodium 139 mmol/L (133-145); TSH (Thyroid Stimulating Horm) 1.26 mcIU/mL (0.34-5.60); Total Protein 7.5 g/dL (6.4-8.9)
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
[2017-01-31 22:26] LABS: Urine Bacteria 1+ (Absent); Urine Bilirubin Negative (Negative); Urine Glucose Negative (Negative); Urine Nitrite Negative (Negative)
[2017-01-31 22:40] LABS: Benzodiazepine Urine Screen None Detected (None Detect)
[2017-01-31] MEDS ORDERED: Haloperidol TAB* 5 MG PO PRN (23:26)
[2017-02-01] MEDS: Mouth Piece, Nicotine* 1 EACH CARTRIDGE INH ONE ×2 (04:00→08:21)
[2017-02-01] MEDS: Nicotine GUM* 2 MG PO PRN ×6 (07:37→19:25)
[2017-02-01] MEDS: Topiramate TAB(*) 25 MG PO SCH (08:21)
[2017-02-01] MEDS: Nicotine Inhaler* 10 MG AMP INH PRN ×2 (08:22→16:11)
[2017-02-01] MEDS ORDERED: chlorproMAZINE TAB* 100 MG PO ONE (11:07)
[2017-02-01] MEDS ORDERED: diPHENhydraMINE PO* 50 MG PO ONE ×2 (11:08→19:00)
[2017-02-01] MEDS ORDERED: diPHENhydraMINE PO* 50 MG ONE (11:11)
[2017-02-01] MEDS ORDERED: chlorproMAZINE TAB* 100 MG ONE (11:11)
[2017-02-01] MEDS: chlorproMAZINE TAB* 25 MG PO PRN (17:17)
--- NOTE | 2017-02-01 17:37 | HP ---
HISTORY AND PHYSICAL: DATE OF ADMISSION: 02/01/17 IDENTIFYING DATA: Marly Pérez is a 26-year-old mentally disabled female with a history of many psychiatric hospitalizations, severe borderline personality disorder, borderline intellectual functioning, chronic self-injury and suicidal behavior, aggression, along with atypical perceptual symptoms, history of seizures and dissociative symptoms. She is admitted to the psychiatric unit about 5 days after her last psychiatric discharge, having presented to the hospital emergency room by ambulance with report of taking extra medication with the intention of harming herself. HISTORY OF PRESENT ILLNESS: Marly says she has had "crazy thoughts" this week. In the emergency room, she reported intentionally hurting herself. She denied ongoing suicidal ideation, but did have urges to take more pills to cause harm. She also reported a desire to stab her sister because her sister was "being mean." She reports taking Topamax and denies seizure activity. She denied new medical problems, but did notice a little more urinary retention. She denied the use of alcohol or drugs. She denied current suicidal thoughts or ideas of harming others. She was somewhat sleepy when we met. She had received Thorazine and Benadryl and was obviously sedated. She said that she now prefers Thorazine again over haloperidol and elected to make that switch. She was equivocal about whether she wanted to be in the hospital or not, with some interest in planning her release for tomorrow. She denied perceptual disturbances or new symptoms. PREVIOUS PSYCHIATRIC HISTORY: Numerous psychiatric hospitalizations in the acute setting and also at the state hospital level. Has severe chronic self- injury behavior with lots of self-cutting, which has often required sutures. She has had multiple suicide attempts and gestures over the years with multiple overdoses and reported overdoses. She has a history of minor aggression in the past and periodically expresses homicidal ideation. She has had many medication trials with no medication fundamentally altering the course of her illness. She has generally taken antipsychotics for off- label applications along with mood stabilizers and multiple antidepressants. She has reported atypical perceptual disturbances of "hearing voices" in the past, but is not evaluated with a beto psychotic disorder. The crises prompting hospitalizations stem from borderline personality disorder with easy breakdowns of coping and upsurges in parasuicidal behavior. Additional diagnosis have included substance related disorder, dissociative disorder, psychotic disorder, posttraumatic stress disorder, and in the past she has been evaluated with mental symptoms due to seizure activity. She has had outpatient care at [facility] and with the assertive community treatment team. Specific previous medications have included trazodone, quetiapine, mirtazapine, gabapentin, Campral, clonidine, lithium, Thorazine, Depakote, citalopram, and naltrexone. She has had very poor adherence with outpatient treatments and medications and unstable clinical alliances. We have relied on her mother to control medication supplies at home as a method of means restriction around overdoses. Marly has a pattern of severe negative therapeutic reactions in the psychiatric unit and is most appropriately treated here with brief stabilization and discharged immediately once she is in a state of safe behavior without active ideas of harming anyone and is calm. Invariably with longer hospitalizations, her behaviors decompensate and regress here based on negative therapeutic reactions. PAST MEDICAL HISTORY: Obesity, seizure condition, urinary retention, herpes zoster, asthma. OUTPATIENT MEDICATION REGIMEN: 1. Topiramate 50 mg b.i.d. 2. Haloperidol 5 mg b.i.d. DRUG ALLERGIES: PENICILLIN. SUBSTANCE ABUSE HISTORY: Previously reported marijuana use, cocaine use, alcohol cravings and treatment with Campral. FAMILY PSYCHIATRIC HISTORY: Half siblings have a history of learning and conduct problems. SOCIAL HISTORY: Marly was adopted and raised with half and adopted siblings. She did not grade high school due to frequent hospitalizations. She had a long- term relationship with a girlfriend, which was highly conflicted and ended recently. Marly identifies as a lesbian. She has recently been residing with her mother. There is a conflict in that relationship with lot of ups and downs, but it has been necessary for primary support. Marly has been homeless at times and has "burnt bridges" with supportive living arrangements through [facility]. PHYSICAL ASSESSMENT: VITAL SIGNS: Temperature is 98.2, blood pressure 113/71, pulse 65, respiratory rate 14. ADMISSION LABORATORY STUDIES: CBC had white blood count of 13.7, absolute neutrophils of 8.9, absolute monocytes of 1.0. Comprehensive panel was normal. test was negative. Urinalysis had 1+ protein, 2+ blood, 2+ leukocyte esterase, 2+ white blood cells, 2+ red blood cells, 1+ bacteria, and ascorbic acid. Toxicology screen was negative for Tylenol, alcohol, or salicylates. Urine drug screen was negative. REVIEW OF SYSTEMS: Negative for recent seizures, neurological difficulties, respiratory difficulties, chest pain, syncope, gastrointestinal symptoms. She notes increased urinary retention with higher frequency between urinations. She denies other elimination symptoms. Denies musculoskeletal problems or new skin problems. PHYSICAL EXAMINATION Deferred. Marly refused the examination citing lack of subjective need. This is a reasonable refusal in an overall healthy person who has been evaluated in the emergency room and medically cleared for psychiatric hospitalization. CLINICAL SUMMARY: Thirteenth acute hospitalization at [facility] of the year for Marly, a 26-year-old female with a history of severe borderline personality disorder, chronic persistent self-harm and suicidal behavior, aggression. Subacutely, she has been doing very poorly with a lot of hospitalizations. She presents in her typical fashion with parasuicidal behavior, some ideas of self- harm and harm to others. Psychiatric hospitalization has been merited. Goal for hospitalization should be a brief stay for stabilization only. ADMISSION DIAGNOSES: 1. Mood disorder. 2. Posttraumatic stress disorder. 3. Borderline personality disorder. 4. Borderline intellectual functioning. TREATMENT PLAN: Admit to the psychiatric unit. Code status is full. Safety checks every 15-minute intervals. Initiate individualized behavior modification plan oriented around correcting self-harm behavior. Medication management will continue Topamax and provide Thorazine on a p.r.n. basis for agitation. ESTIMATED LENGTH OF STAY: Two days. Discharge planning will involve coordination with appropriate aftercare. Marly's strengths are her adequate baseline health and her help-seeking behavior. [id number]/[facility] #: [id number] NEIL
[2017-02-01] MEDS ORDERED: Haloperidol TAB* 5 MG PO ONE (19:00)
[2017-02-01] MEDS ORDERED: LORazepam TAB(*) 1 MG PO ONE (19:00)
[2017-02-02] MEDS: Topiramate TAB(*) 25 MG PO SCH ×3 (00:41→23:45)
[2017-02-02] MEDS: chlorproMAZINE TAB* 25 MG PO PRN ×4 (07:03→15:56)
[2017-02-02] MEDS: Nicotine GUM* 2 MG PO PRN ×7 (07:10→20:08)
[2017-02-02] MEDS: Nicotine Inhaler* 10 MG AMP INH PRN ×3 (07:10→15:57)
--- NOTE | 2017-02-02 13:39 | PN ---
Subjective - Subjective Service Type: 24566 Hosp care 15 min low complexity Subjective: Marly is ambivalent about going home, and basically opted to stay with plan for D/c Sunday. She says her "depression" is the target for her work here. We agreed on her medicine regimen, and reviewed behavioral expectations and BMod. Objective - Appearance Appearance: Obese Hygiene: Normal Grooming: Well Kept - Behavior Psychomotor Activities: Abnormal-Decreased - Attitude and Relatedness Attitude and Relatedness: Superficially Cooperative Eye Contact: Good - Speech Quality: Unpressured Latencies: Normal Quantity: Terse - Mood Patient's Decription of Mood: "Okay" - Affect Observed Affect: Non-labile Affect Consistent with: Dysphoria - mild - Thought Process Patient's Thought Process: Coherent, Impoverished Thought Content: No Passive Wish, No Suicidal Planning, No Homicidal Ideation, No Paranoid Ideation - Sensorium Experiencing Hallucinations: No, Sensorium is Clear - Level of Consciousness Level of Consciousness: Alert - Impulse Control Impulse Control: Poor - Insight and Judgement Insight and Judgement: Poor Assessment - Assessment Merits Inpatient Hospitalization: For Stabilization, To Initiate Treatment, For Ongoing Evaluation, For Discharge Planning Inpatient DSM-IV Dx: 1. Mood disorder. 2. Posttraumatic stress disorder. 3. Borderline personality disorder. 4. Borderline intellectual functioning. Clinical Impression: Thirteenth acute hospitalization at [facility] of the year for Marly , a 26-year-old female with a history of severe borderline personality disorder , chronic persistent self-harm and suicidal behavior, aggression. Subacutely, she has been doing very poorly with a lot of hospitalizations. She presented in her typical fashion with parasuicidal behavior, some ideas of self-harm and harm to others. Stabilizing here. Safe on checks, free of active suicidal ideation. Continues dysphoric. Medication management will continue Topamax and provide Thorazine on a p.r.n. basis for agitation. Plan - Plan Treatment Plan: Name: MARLY WILKINSON Birthdate: 1990 [id number] Continued Medication Management: Different Medication Medications: Current Medications Chlorpromazine HCl (Thorazine Tab*) 25 mg PO Q2H PRN PRN Reason: AGITATION Last Admin: 02/02/17 12:12 Dose: 25 mg Nicotine (Nicotine Inhaler*) 10 mg INH Q2H PRN PRN Reason: CRAVING Last Admin: 02/02/17 12:56 Dose: 10 mg Nicotine Polacrilex (Nicotine Gum*) 2 mg PO Q2H PRN PRN Reason: CRAVING Last Admin: 02/02/17 12:11 Dose: 2 mg Topiramate (Topamax(*)) 50 mg PO BID KEVIN Last Admin: 02/02/17 09:48 Dose: 50 mg - Discharge Plan Discharge Plan: Outpatient Follow Up Outpatient Program: [facility]
[2017-02-02] MEDS: Acetaminophen TAB* 325 MG PO PRN (14:13)
[2017-02-02] MEDS ORDERED: diPHENhydraMINE PO* 50 MG PO ONE (19:00)
[2017-02-02] MEDS ORDERED: Haloperidol TAB* 5 MG PO ONE (19:00)
[2017-02-02] MEDS ORDERED: LORazepam TAB(*) 1 MG PO ONE (19:00)
[2017-02-03] MEDS: chlorproMAZINE TAB* 25 MG PO PRN (08:23)
[2017-02-03] MEDS: Nicotine GUM* 2 MG PO PRN ×5 (08:24→19:51)
[2017-02-03] MEDS: Topiramate TAB(*) 25 MG PO SCH ×2 (08:24→21:09)
[2017-02-03] MEDS: Nicotine Inhaler* 10 MG AMP INH PRN ×3 (09:01→18:12)
[2017-02-03] MEDS ORDERED: Haloperidol TAB* 5 MG PO PRN (09:45)
[2017-02-03] MEDS ORDERED: LORazepam TAB(*) 1 MG PO PRN (09:45)
[2017-02-03] MEDS ORDERED: diPHENhydraMINE PO* 50 MG PO PRN (09:45)
[2017-02-03] MEDS ORDERED: Haloperidol TAB* 5 MG PO SCH (16:00)
[2017-02-03] MEDS: LORazepam TAB(*) 1 MG PO PRN (18:07)
[2017-02-03] MEDS: Haloperidol TAB* 5 MG PO PRN (18:08)
[2017-02-03] MEDS: diPHENhydraMINE PO* 50 MG PO PRN (18:08)
[2017-02-03] MEDS: Acetaminophen TAB* 325 MG PO PRN (21:09)
[2017-02-04] MEDS: Nicotine GUM* 2 MG PO PRN ×6 (01:15→17:42)
[2017-02-04] MEDS: Haloperidol TAB* 5 MG PO PRN ×2 (01:15→09:03)
[2017-02-04] MEDS: LORazepam TAB(*) 1 MG PO PRN ×2 (01:15→09:04)
[2017-02-04] MEDS: diPHENhydraMINE PO* 50 MG PO PRN ×2 (01:15→09:04)
[2017-02-04] MEDS: Topiramate TAB(*) 25 MG PO SCH ×3 (08:09→21:56)
[2017-02-04] MEDS: Nicotine Inhaler* 10 MG AMP INH PRN ×2 (09:21→15:27)
--- NOTE | 2017-02-04 10:06 | PN ---
Subjective - Subjective Service Type: 89529 Hosp care 15 min low complexity Subjective: I reviewed Dr Guadalupe's sign-out and notes since Sunday afternoon. I am familiar with this patient from previous hospitalizations. She is well known to this unit. Staff notes indicate labile mood Sunday evening. She has remained medication focused over the weekend, frequently requesting oral "B-52." Staff note agitation, restlessness yesterday. B-mod was ordered yesterday. She expressed self-harm and was verbally aggressive yesterday. She broke into the nurses station last evening, obtained a razor, and cut her arm. Bladder scan done yesterday indicated full bladder, Sabillon catheter ordered. It was placed, then she requested that it be removed after 1600ml drained. Pt observed pacing the unit this morning around 830am. She asked to meet with me today and I indicated we could meet after lunch. About 30 minutes later, she walked past me, glared, and expressed displeasure that we haven't met yet. Staff indicate she put a sheet around her neck around this time, threatening to hang herself. Minutes later, I observed her screaming at staff, threatening them. When I walked into the room she yelled "I'll stab you" and demanded I leave. Staff gave her oral prn medications. Security was called around 930am. Staff requested that she go to the quiet room to de-escalate. A brief manual hold was needed to do so after she refused to go. She was banging on the luis loudly and threatening to harm staff when first placed in the Quiet Room. Objective - Appearance Appearance: Obese, Other - scars, cuts on UEs b/l with bandages Dysmorphic Features: No Grooming: Disheveled - Behavior Psychomotor Activities: Abnormal-Increased - Attitude and Relatedness Attitude and Relatedness: Hostile Eye Contact: Fair - Speech Quality: Pressured Latencies: Short Quantity: Copious - yelling - Mood Patient's Decription of Mood: "Upset" - Affect Observed Affect: Labile Affect Consistent with: Dysphoria - Thought Process Patient's Thought Process: Disorganized Thought Content: Yes Suicidal Planning, Yes Homicidal Ideation - Sensorium Experiencing Hallucinations: No, Sensorium is Clear - Level of Consciousness Level of Consciousness: Agitated - Impulse Control Impulse Control: Poor - Insight and Judgement Insight and Judgement: Impaired Assessment - Assessment Merits Inpatient Hospitalization: For Immediate Safety, For Stabilization Inpatient DSM-IV Dx: 1. Mood disorder. 2. Posttraumatic stress disorder. 3. Borderline personality disorder. 4. Borderline intellectual functioning. Clinical Impression: 26yo female with a hx of borderline PD, intellectual disability, trauma, past substance misuse, chronic self-harm and suicidality and multiple psychiatric hospitalizations admitted for SI. Presentation is similar to multiple previous hospitalizations. To try to reduce reinforcing aspects of hospitalization. Plan - Plan Treatment Plan: Name: FILOMENA WILKINSON Birthdate: 1990 [id number] -continue current meds, including prns -continue B-mod -use Quiet Room to de-escalate -ask Psychiatry to clarify orders for "B-52s" moving forward as she has been demanding this (over thorazine prn) recently. Medications: Current Medications Acetaminophen (Tylenol Tab*) 650 mg PO Q4H PRN PRN Reason: PAIN Last Admin: 02/03/17 21:09 Dose: 650 mg Chlorpromazine HCl (Thorazine Tab*) 25 mg PO Q2H PRN PRN Reason: AGITATION Last Admin: 02/03/17 08:23 Dose: 25 mg Diphenhydramine HCl (Benadryl Po*) 50 mg PO Q8HR PRN PRN Reason: AGITATION Last Admin: 02/04/17 09:04 Dose: 50 mg Haloperidol (Haldol Tab*) 5 mg PO Q8HR PRN PRN Reason: AGITATION Last Admin: 02/04/17 09:03 Dose: 5 mg Lorazepam (Ativan Tab(*)) 2 mg PO Q8HR PRN PRN Reason: AGITATION Last Admin: 02/04/17 09:04 Dose: 2 mg Nicotine (Nicotine Inhaler*) 10 mg INH Q2H PRN PRN Reason: CRAVING Last Admin: 02/04/17 09:21 Dose: 10 mg Nicotine Polacrilex (Nicotine Gum*) 2 mg PO Q2H PRN PRN Reason: CRAVING Last Admin: 02/04/17 08:10 Dose: 2 mg Topiramate (Topamax(*)) 50 mg PO BID KEVIN Last Admin: 02/04/17 08:09 Dose: 50 mg
[2017-02-04] MEDS ORDERED: diPHENhydraMINE IV* 50 MG/ML 1 ml VIAL (BENADRYL) IM ONE (16:35)
[2017-02-04] MEDS ORDERED: LORazepam INJ* 2 MG/ML 1 ML VIAL IM ONE (16:35)
[2017-02-04] MEDS ORDERED: Haloperidol INJ IV/IM* 5 MG/ML AMP IM ONE (16:35)
[2017-02-04] MEDS ORDERED: LORazepam TAB(*) 1 MG ONE (16:40)
[2017-02-04] MEDS ORDERED: diPHENhydraMINE PO* 50 MG ONE (16:41)
[2017-02-04] MEDS ORDERED: Haloperidol TAB* 5 MG ONE (16:41)
[2017-02-04] MEDS ORDERED: LORazepam INJ* 2 MG/ML 1 ML VIAL ONE (16:46)
[2017-02-04] MEDS ORDERED: diPHENhydraMINE IV* 50 MG/ML 1 ml VIAL (BENADRYL) ONE (16:46)
[2017-02-04] MEDS ORDERED: Haloperidol INJ IV/IM* 5 MG/ML AMP ONE (16:46)
[2017-02-05] MEDS: diPHENhydraMINE PO* 50 MG PO PRN ×3 (01:00→15:50)
[2017-02-05] MEDS: Haloperidol TAB* 5 MG PO PRN ×3 (01:00→15:49)
[2017-02-05] MEDS: Nicotine GUM* 2 MG PO PRN ×5 (01:00→17:45)
[2017-02-05] MEDS: LORazepam TAB(*) 1 MG PO PRN ×3 (01:00→15:49)
[2017-02-05] MEDS: chlorproMAZINE TAB* 25 MG PO PRN ×3 (02:00→17:19)
[2017-02-05] MEDS: Topiramate TAB(*) 25 MG PO SCH ×2 (08:17→22:12)
--- NOTE | 2017-02-05 08:22 | DS ---
Subjective - Subjective Service Types: 60450 [facility] Day Mgmt simple under 30 min Discharge Date: 02/05/17 Subjective: Marly was quite calm and said she is ready to go home today. She noted mildly depressed mood, and said her only risk is that her mom is angry at her and critical. She denied plans to harm herself. We reviewed her weekend setbacks, her aftercare plan, and her medication. She says her mom disagrees with overseeing her medication - SW (Jasmyn Angulo) is working on clarifying that with mom. Objective - Appearance Appearance: Obese Hygiene: Normal Grooming: Fairly Well Kept - Behavior Psychomotor Activities: Normal - Attitude and Relatedness Attitude and Relatedness: Superficially Cooperative Eye Contact: Good - Speech Quality: Unpressured Latencies: Normal Quantity: Terse - Mood Patient's Decription of Mood: "Okay" - Affect Observed Affect: Non-labile Affect Consistent with: Dysphoria - mild - Thought Process Patient's Thought Process: Coherent Thought Content: No Passive Wish, No Suicidal Planning, No Homicidal Ideation, No Paranoid Ideation - Sensorium Experiencing Hallucinations: No, Sensorium is Clear - Level of Consciousness Level of Consciousness: Alert - Impulse Control Impulse Control: Poor - Insight and Judgement Insight and Judgement: Poor Treatment Course & Assessment Clinical Course & Impression: Thirteenth acute hospitalization at [facility] of the year for Marly , a 26-year-old female with a history of severe borderline personality disorder , chronic persistent self-harm and suicidal behavior, aggression. Subacutely, she has been doing very poorly with a lot of hospitalizations. She presented in her typical fashion with parasuicidal behavior, some ideas of self-harm and harm to others. 02/05/17 Clear for release. Marly currently has low symptom burden, safe behavior and ideation. As of 02/02 she had been stabilizing here, but was ambivalent about going home. Plan was made for her ongoing care over the weekend - she had setbacks, and regressed behaviorally here, with threats to others, high symptom endorsement, and self harm behavior. She is again settled down now, acutely stabilized, in behavioral control, calm, and with low symptom levels. She is appropriate for discharge. Medication management will continue Topamax and provide Thorazine on a p.r.n. basis for agitation. In general, hospitalization should be kept brief for Marly as she is at high risk for negative therapeutic reactions if retained longer than necessary in the hospital. Acute risk of serious harm to self / other is assessed as low currently based on Marly's reduced and low symptom burden, absence of acute impairment, current intact behavioral control, and cessation of ideas of harm to self/ other. Her condition is fluid, she is volatile, and risk status can change rapidly. She is at chronic elevated risk for impulsive violence, suicide, intentional and inadvertent harm. Clear for Discharge: Acceptable Safety Profile, Low Utility of Inpt Care Inpatient DSM-IV Dx: 1. Mood disorder. 2. Posttraumatic stress disorder. 3. Borderline personality disorder. 4. Borderline intellectual functioning. Discharge Planning - Discharge Planning Discharge Plan: Outpatient Follow Up Outpatient Program: [facility] Recommendations for Continuing Care: Medication Management, Psychotherapy, Routine Metabolic Monitoring Medications: Current Medications Chlorpromazine HCl (Thorazine Tab*) 25 mg PO Q2H PRN PRN Reason: AGITATION Last Admin: 02/05/17 02:00 Dose: 25 mg Topiramate (Topamax(*)) 50 mg PO BID KEVIN Last Admin: 02/05/17 08:17 Dose: 50 mg Discharge Planning: Prescriptions provided for discharge [x] Yes 1 wk supply only Follow up care details as per social work arrangements. Patient response to discharge plan: [] eager for discharge [x] agreeable with discharge plan [] ambivalent about discharge [] disagrees with discharge today
[2017-02-05] MEDS: Nicotine Inhaler* 10 MG AMP INH PRN ×2 (09:08→15:52)
[2017-02-06] MEDS: LORazepam TAB(*) 1 MG PO PRN (06:39)
[2017-02-06] MEDS: diPHENhydraMINE PO* 50 MG PO PRN (06:39)
[2017-02-06] MEDS: Haloperidol TAB* 5 MG PO PRN (06:39)
[2017-02-06] MEDS: Nicotine GUM* 2 MG PO PRN ×2 (06:40→10:12)
[2017-02-06] MEDS: chlorproMAZINE TAB* 25 MG PO PRN (07:00)
[2017-02-06 08:36] VITALS: BP 139/61
[2017-02-06] MEDS: Topiramate TAB(*) 25 MG PO SCH (10:35)
--- NOTE | 2017-02-06 11:14 | DCNOTE ---
Subjective - Subjective Service Types: [address] [facility] Day Mgmt simple under 30 min Discharge Date: 02/06/17 Subjective: Marly has been calm and cooperative and safe on all checks. Issues no complaints and is requesting discharge home. Objective - Appearance Appearance: Obese Dysmorphic Features: No Hygiene: Normal Grooming: Fairly Well Kept - Behavior Psychomotor Activities: Normal Exhibits Abnormal Movement: No - Attitude and Relatedness Attitude and Relatedness: Cooperative Eye Contact: Fair - Speech Quality: Unpressured Latencies: Normal Quantity: Appropriate - Mood Patient's Decription of Mood: "Fine" - Affect Observed Affect: Fair Affect Consistent with: Euthymia - Thought Process Patient's Thought Process: Coherent Thought Content: No Passive Wish, No Suicidal Planning, No Homicidal Ideation, No Paranoid Ideation - Sensorium Experiencing Hallucinations: No, Sensorium is Clear Type of Hallucinations: Visual: No, Auditory: No, Command: No - Level of Consciousness Level of Consciousness: Alert Orientation: Yes Intact, Yes Orientated to Time, Yes Orientated to Place, Yes Orientated to Person - Impulse Control Impulse Control: Tenuous - Insight and Judgement Insight and Judgement: Fair - Group Participation Particating in Group Activities: Yes - Medication Management Medication Management Adherence: Yes DC Assessment - Assessment Clinical Impression: 26 y.o. single, homosexual white female with a history of intellectual delay, affective instability and borderline personality disorder, who was admitted to our unit with acute SI. Merits Inpatient Hospitalization: No Clear for Discharge: Adequate Clinical Respons, Acceptable Safety Profile, Low Utility of Inpt Care Inpatient DSM-IV Dx: 1. Mood disorder. 2. Posttraumatic stress disorder. 3. Borderline personality disorder. 4. Borderline intellectual functioning. Discharge Planning - Discharge Planning Discharge Plan: Outpatient Follow Up Outpatient Program: [facility] Recommendations for Continuing Care: Medication Management Medications: Current Medications Acetaminophen (Tylenol Tab*) 650 mg PO Q4H PRN PRN Reason: PAIN Last Admin: 02/03/17 21:09 Dose: 650 mg Chlorpromazine HCl (Thorazine Tab*) 25 mg PO Q2H PRN PRN Reason: AGITATION Last Admin: 02/06/17 07:00 Dose: 25 mg Diphenhydramine HCl (Benadryl Po*) 50 mg PO Q8HR PRN PRN Reason: AGITATION Last Admin: 02/06/17 06:39 Dose: 50 mg Haloperidol (Haldol Tab*) 5 mg PO Q8HR PRN PRN Reason: AGITATION Last Admin: 02/06/17 06:39 Dose: 5 mg Lorazepam (Ativan Tab(*)) 2 mg PO Q8HR PRN PRN Reason: AGITATION Last Admin: 02/06/17 06:39 Dose: 2 mg Nicotine (Nicotine Inhaler*) 10 mg INH Q2H PRN PRN Reason: CRAVING Last Admin: 02/05/17 15:52 Dose: 10 mg Nicotine Polacrilex (Nicotine Gum*) 2 mg PO Q2H PRN PRN Reason: CRAVING Last Admin: 02/06/17 10:12 Dose: 2 mg Topiramate (Topamax(*)) 50 mg PO BID KEVIN Last Admin: 02/06/17 10:35 Dose: 50 mg Discharge Planning: Prescriptions provided for discharge [] Yes [] No Follow up care details as per social work arrangements. Patient response to discharge plan: [] eager for discharge [] agreeable with discharge plan [] ambivalent about discharge [] disagrees with discharge today
== END 2017-02-06 12:15 | disposition home or self-care (01) | DRG 753 ==
LOC: ED 16:25 → BSU 02-01 00:18
PROVIDERS: ADMIT Psychiatry & Neurology Psychiatry; ATTEND Psychiatry & Neurology Psychiatry
DX: F39 Unspecified mood [affective] disorder (principal); G40.909 Epilepsy, unspecified, not intractable, without status epilepticus; E66.9 Obesity, unspecified; F43.10 Post-traumatic stress disorder, unspecified; F60.3 Borderline personality disorder; R41.83 Borderline intellectual functioning; Z68.32 Body mass index [BMI] 32.0-32.9, adult; J45.909 Unspecified asthma, uncomplicated; R33.9 Retention of urine, unspecified; Z79.899 Other long term (current) drug therapy; Z88.0 Allergy status to penicillin
CPT/HCPCS: 36415; 80053; 80307; 80320; 80329; 81003; 81015; 84443; 84702; 85025; 87086; 99222; 99231; 99238; A9270-GY; G0480; J1200; J1630; J2060

== ENCOUNTER 2017-02-09 13:58 | Inpatient (IN) | payer MEDICAID ==
[2017-02-09 14:44] LABS: Hematocrit 42 % (35-47); Hemoglobin 13.8 g/dl (12.0-16.0); Mean Corpuscular HGB Conc 33 g/dl (31-36); Mean Corpuscular Hemoglobin 30 pg (27-31); Mean Corpuscular Volume 90 fL (80-97); Mean Platelet Volume 9 um3 (7.4-10.4); Red Blood Count 4.64 10^6/ul (4.0-5.4); Red Cell Distribution Width 15 % (10.5-15); White Blood Count 14.4 10^3/ul (3.5-10.8)
[2017-02-09 15:00] LABS: ALT 24 U/L (7-52); AST 17 U/L (13-39); Albumin 4.5 g/dL (3.2-5.2); Alkaline Phosphatase 80 U/L (34-104); Anion Gap 8 mmol/L (2-11); BUN/Creatinine Ratio 15.1 (8-20); Blood Urea Nitrogen 13 mg/dL (6-24); CO2 Carbon Dioxide 25 mmol/L (22-32); Calcium 9.4 mg/dL (8.6-10.3); Chloride 105 mmol/L (101-111); EGFR Non-African American 78.6 (>60); Globulin 3.5 g/dL (2-4); Glucose 86 mg/dL (70-100); Potassium 3.3 mmol/L (3.5-5.0); Sodium 138 mmol/L (133-145)
[2017-02-09 15:14] LABS: Acetaminophen < 15 mcg/mL; Alcohol < 10 mg/dL (<10); Salicylate < 2.50 mg/dL (<30)
[2017-02-09 15:24] LABS: TSH (Thyroid Stimulating Horm) 1.21 mcIU/mL (0.34-5.60)
[2017-02-09] MEDS ORDERED: Haloperidol TAB* 5 MG ONE (18:48)
[2017-02-09] MEDS ORDERED: diPHENhydraMINE PO* 50 MG ONE (18:48)
[2017-02-09] MEDS ORDERED: Nicotine Inhaler* 10 MG AMP ONE (18:48)
[2017-02-09] MEDS ORDERED: LORazepam TAB(*) 1 MG ONE (18:48)
[2017-02-09] MEDS ORDERED: Mouth Piece, Nicotine* 1 EACH CARTRIDGE ONE (18:49)
[2017-02-09] MEDS ORDERED: Nicotine GUM* 2 MG ONE (18:49)
[2017-02-09] MEDS ORDERED: Acetaminophen TAB* 325 MG ONE (18:52)
--- NOTE | 2017-02-09 19:04 | ED ---
Carin Lofton Alfonso, scribed for Willam Lyn MD on 02/09/17 at 1510 . Psychiatric Complaint - HPI Summary HPI Summary: This patient is a 26 year old female BIBA with police to [facility] for SI and HI at 1310 today. She presents with multiple lacerations to her left UE. She state I cut myself and I was upset. Per triage, pt is asking for a MHE, stating that she wants to kill her family, and per patient is non-compliant with her medications. She rates the pain 0/10 in severity. Sx aggravated and alleviated by nothing. Symptoms aggravated by medication non-compliance and alleviated by nothing. The patient reports depression. The patient denies any other form of self-injury. PMHx of borderline DM, herpes, schizoaffective, disorder, pseudoseizures, SIB, urinary retention, auditory hallucination, bipolar disorder , panic disorder, eating disorder, tobacco use disorder, violence against others , suicide attempt, borderline personality disorder, ADHD, PTSD, VRE, and developmental delay. - History Of Current Complaint Chief Complaint: [facility] Time Seen by Provider: 02/09/17 14:18 Hx Obtained From: Patient Onset/Duration: Sudden Onset, Lasting Hours - 1310 today, Still Present Timing: Constant Severity Initially: Moderate Severity Currently: Moderate Character: Depressed Aggravating Factor(s): Medication Non-compliance Alleviating Factor(s): Nothing Has Suicidal: Reports: With A Plan, Has Prior Attempt(s) Has Homicidal: Reports: Thoughts - Allergies/Home Medications Allergies/Adverse Reactions: Allergies Allergy/AdvReac Type Severity Reaction Status Date / Time Penicillin V Allergy Severe Hives Verified 02/02/17 11:30 Latex Allergy Intermediate Rash Verified 02/02/17 11:30 Lactose Intolerance (GI) Allergy Diarrhea Verified 02/02/17 11:30 glue Allergy Rash Uncoded 02/02/17 11:30 steri strips Allergy Rash Uncoded 02/02/17 11:30 PMH/Surg Hx/FS Hx/Imm Hx Endocrine/Hematology History: Reports: Hx Unexplained Bleeding Denies: Hx Anticoagulant Therapy, Hx Blood Disorders, Hx Thyroid Disease, Other Endocrine/Hematological Disorders - borderline diabetic Comment Only: Hx Diabetes - Borderline Cardiovascular History: Denies: Hx Hypertension, Hx Pacemaker/ICD, Other Cardiovascular Problems/ Disorders Respiratory History: Reports: Hx Asthma - patient denied Denies: Hx Chronic Bronchitis, Hx Chronic Obstructive Pulmonary Disease (COPD ), Hx Cystic Fibrosis, Hx Lung Cancer, Hx Pleural Effusion, Hx Pneumonia, Hx Pulmonary Edema, Hx Pulmonary Embolism, Hx Seasonal Allergies, Hx Sleep Apnea, Other Respiratory Problems/Disorders GI History: Denies: Hx Ulcer, Other GI Disorders History: Reports: Other Problems/Disorders - Urinary Retention and Herpes Denies: Hx Renal Disease Musculoskeletal History: Denies: Other Musculoskeletal History Sensory History: Reports: Hx Contacts or Glasses Denies: Hx Cataracts, Hx Eye Injury, Hx Eye Prosthesis, Hx Glaucoma, Hx Legally Blind, Hx Macular Degeneration, Hx Deafness, Hx Hearing Aid, Hx Hearing Problem, Other Sensory Impairments Opthamlomology History: Reports: Hx Contacts or Glasses Denies: Hx Cataracts, Hx Eye Injury, Hx Eye Prosthesis, Hx Glaucoma, Hx Legally Blind, Hx Macular Degeneration, Other Sensory Impairments Neurological History: Reports: Hx Developmental Delay, Hx Headaches, Hx Seizures Denies: Hx Dementia, Hx Migraine, Hx Nerve Disease, Hx Spinal Cord Injury, Hx Transient Ischemic Attacks (TIA), Other Neuro Impairments/Disorders Psychiatric History: Reports: Hx Anxiety, Hx Attention Deficit Hyperactivity Disorder, Hx Depression, Hx Panic Disorder, Hx Post Traumatic Stress Disorder, Hx Inpatient Treatment, Hx Community Mental Health Tx, Hx Bipolar Disorder, Hx Suicide Attempt, Hx of Violent Episodes Against Others - SEE VIOLENCE HX, Hx Substance Abuse, Other Psychiatric Issues/Disorders Denies: Hx Eating Disorder Comment Only: Hx Schizophrenia - Schizoaffective Disorder - Cancer History Hx Chemotherapy: No Hx Radiation Therapy: No Hx Palliative Cancer Treatment: No - Immunization History Date of Tetanus Vaccine: UTD Date of Influenza Vaccine: Unk Infectious Disease History: 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 - Social History Alcohol Use: Rare Alcohol Amount: "drank beer awhile ago" Hx Substance Use: No Substance Use Type: Reports: Prescribed Substance Use Comment - Amount & Last Used: denies substance abuse Hx Tobacco Use: Yes Smoking Status (MU): Heavy Every Day Tobacco Smoker Type: Cigarettes Amount Used/How Often: 4 cigarettes per day Length of Time of Smoking/Using Tobacco: 3 years Have You Smoked in the Last Year: Yes Review of Systems Negative: Fever Positive: Other - Negative other forms of self injury Positive: Other - Positive multiple lacerations to her left UE Neurological: Other - Positive HI and SI Positive: Depressed All Other Systems Reviewed And Are Negative: Yes Physical Exam Triage Information Reviewed: Yes Vital Signs On Initial Exam: Initial Vitals Temp Pulse Resp BP Pulse Ox 97.8 F 91 18 133/60 98 02/09/17 14:07 02/09/17 14:07 02/09/17 14:07 02/09/17 14:07 02/09/17 14:07 Vital Signs Reviewed: Yes Appearance: Positive: Well-Appearing, No Pain Distress Skin: Positive: Other Head/Face: Positive: Normal Head/Face Inspection Eyes: Positive: EOMI, OKSANA ENT: Positive: Normal ENT inspection Neck: Positive: Supple, Nontender Respiratory/Lung Sounds: Positive: Clear to Auscultation, Breath Sounds Present Cardiovascular: Positive: RRR Abdomen Description: Positive: Nontender, Soft Bowel Sounds: Positive: Present Musculoskeletal: Positive: Normal, Strength/ROM Intact Neurological: Positive: Normal, Sensory/Motor Intact, Alert, Oriented to Person Place, Time Psychiatric: Positive: Depressed Procedures - Laceration/Wound Repair 1 Location: upper extremity - Left Description: Linear Anesthesia: 1.0%, Lido Betadine Prep?: No - Sure-clens and sterile saline Laceration/Wound Explored: clean Closure: Skin Adhesive, Single Layer Debridement: minimal Suture Type: Nylon - Monosof 5-0 Number of Sutures: 7 Layer Closure?: No Sterile Dressing Applied?: Yes Diagnostics - Vital Signs Vital Signs Temp Pulse Resp BP Pulse Ox 02/09/17 14:07 97.8 F 91 18 133/60 98 - Laboratory Lab Results: Lab Results 02/09/17 02/09/17 Range/Units 14:30 14:30 WBC 14.4 H (3.5-10.8) 10^3/ul RBC 4.64 (4.0-5.4) 10^6/ul Hgb 13.8 (12.0-16.0) g/dl Hct 42 (35-47) % MCV 90 (80-97) fL MCH 30 (27-31) pg MCHC 33 (31-36) g/dl RDW 15 (10.5-15) % Plt Count 278 (150-450) 10^3/ul MPV 9 (7.4-10.4) um3 Neut % (Auto) 79.1 (38-83) % Lymph % (Auto) 15.1 L (25-47) % [place] % (Auto) 5.3 (1-9) % Eos % (Auto) 0.2 (0-6) % Baso % (Auto) 0.3 (0-2) % Absolute Neuts (auto) 11.4 H (1.5-7.7) 10^3/ul Absolute Lymphs (auto) 2.2 (1.0-4.8) 10^3/ul Absolute Monos (auto) 0.8 (0-0.8) 10^3/ul Absolute Eos (auto) 0 (0-0.6) 10^3/ul Absolute Basos (auto) 0 (0-0.2) 10^3/ul Absolute Nucleated RBC 0 10^3/ul Nucleated RBC % 0 Sodium 138 (133-145) mmol/L Potassium 3.3 L (3.5-5.0) mmol/L Chloride 105 (101-111) mmol/L Carbon Dioxide 25 (22-32) mmol/L Anion Gap 8 (2-11) mmol/L BUN 13 (6-24) mg/dL Creatinine 0.86 (0.51-0.95) mg/dL Est GFR ( Amer) 101.0 (>60) Est GFR (Non-Af Amer) 78.6 (>60) BUN/Creatinine Ratio 15.1 (8-20) Glucose 86 (70-100) mg/dL Calcium 9.4 (8.6-10.3) mg/dL Total Bilirubin 0.50 (0.2-1.0) mg/dL AST 17 (13-39) U/L ALT 24 (7-52) U/L Alkaline Phosphatase 80 (34-104) U/L Total Protein 8.0 (6.4-8.9) g/dL Albumin 4.5 (3.2-5.2) g/dL Globulin 3.5 (2-4) g/dL Albumin/Globulin Ratio 1.3 (1-3) TSH Pending Salicylates Pending Acetaminophen Pending Serum Alcohol Pending Result Diagrams: 02/09/17 14:30 02/09/17 14:30 Lab Statement: Any lab studies that have been ordered have been reviewed, and results considered in the medical decision making process. Course/Dx - Course Course Of Treatment: NO CRITICAL CARE TIME. ADMIT MHU. - Differential Dx/Clinical Impression Provider Diagnosis: Mental health problem, Laceration Discharge - Discharge Plan Condition: Stable Disposition: ADMITTED TO [facility] The documentation as recorded by the Carin haskins Alfonso accurately reflects the service I personally performed and the decisions made by , Willam Lyn MD.
[2017-02-09] MEDS ORDERED: Acetaminophen TAB* 325 MG PO PRN (19:51)
[2017-02-09] MEDS ORDERED: Al Hydrox/Mg Hydrox/Simet LIQ* 30 ML UDC PO PRN (19:51)
[2017-02-09] MEDS ORDERED: Mouth Piece, Nicotine* 1 EACH CARTRIDGE INH SCH (19:51)
[2017-02-09] MEDS: Topiramate TAB(*) 25 MG PO SCH (22:02)
[2017-02-10] MEDS: diPHENhydraMINE PO* 50 MG PO PRN ×4 (01:26→15:40)
[2017-02-10] MEDS: Haloperidol TAB* 5 MG PO PRN ×4 (01:26→15:39)
[2017-02-10] MEDS: LORazepam TAB(*) 1 MG PO PRN ×4 (01:27→15:40)
[2017-02-10] MEDS: Nicotine GUM* 2 MG PO PRN ×5 (01:27→17:41)
[2017-02-10] MEDS: Topiramate TAB(*) 25 MG PO SCH ×2 (08:18→23:28)
[2017-02-10] MEDS: Nicotine Inhaler* 10 MG AMP INH PRN ×2 (11:31→17:41)
--- NOTE | 2017-02-10 14:55 | ADMNOTE ---
Identification - Identify Employment Status: Disabled Hx Psychiatric Hospitalization: Yes - multiple Prior Psychiatric Diagnosis: Borderline PD; PTSD; Borderline intellectual functioning Arrived to Hospital Via: Law Enforcement History - Objective HPI: Marly is a 26-year-old mentally disabled female with history of multiple previous psychiatric hospitalizations, severe borderline personality disorder, borderline intellectual functioning, chronic self- injury and suicidal behavior and aggression, along with atypical perceptual disturbances, history of seizure and dissociative symptoms. She is readmitted to the psychiatric unit about 3 days after her last psychiatric discharge, having presented to the hospital emergency room with self-inflicted lacerations of left upper arm that required sutures. HISTORY OF PRESENT ILLNESS: Marly relates that following her discharge from this hospital on 02/06/17, she found out that her ex-girlfriend, who had broken up with her about a month ago, had covered up a tattoo of Marly's name on it and was in a relationship with someone else and this highly upset her. She reports that as a result, the voices in her head have intensified. She hears voices telling her to harm herself and to set her house on fire. She expresses delusions that people are lying to her and laughing at her, and visual hallucinations of seeing bugs crawling out of the toilet. She endorses continued suicidal ideation, "I don't want to live anymore, I want to hang myself." She describes sad mood, difficulty sleeping, continued urges to self- harm, feelings of worthlessness, hopelessness, and helplessness. She reports not having been compliant with taking prescribed medications and with keeping outpatient therapy appointment at [facility]. She describes improved relationship with her mother, which had been a source of stress in the past. She would like to go to a state hospital to spend more time to get her symptoms under control. Of note, the patient has had several previous inpatient stays at psychiatric hospitals. PREVIOUS PSYCHIATRIC HOSPITALIZATION: Numerous previous inpatient psychiatric admissions since her teenage years including at state hospitals. Last admission was here from 02/01/17 to 02/06/17. Outpatient care is at [facility] with outpatient psychiatrist, Dr. Jamie Newby, and with community nurse, Hope Saucedo. The patient, over the years, has been given diagnoses of borderline personality disorder, substance-related disorder, dissociative disorder, psychotic disorder, posttraumatic stress disorder, and borderline intellectual functioning. Her last discharge regimen consisted of topiramate 50 mg twice daily and Thorazine 25 mg q.6 hours p.r.n. as needed. She relates that she was not compliant with taking the prescribed medications. MEDICATION HISTORY: Multiple previous medication trials have included trazodone , quetiapine, mirtazapine, gabapentin, Campral, clonidine, lithium, Thorazine, Depakote, citalopram, and naltrexone. She has a history of poor adherence with outpatient treatment and with taking prescribed medications and unstable clinical alliances. SUBSTANCE ABUSE HISTORY: She denies recent use of any substance, but had in the past admitted use of marijuana, cocaine, and alcohol. FAMILY PSYCHIATRIC HISTORY: Half-siblings have history of learning and conduct disorders. SOCIAL HISTORY: She was adopted and raised with half and adopted siblings. She did not graduate from school due to frequent crisis and hospitalizations. She was in a long- term relationship with a girlfriend who broke up with her about a month ago and is reportedly dating someone else, which led to this admission. She identified as being lesbian. She lives at home with her mother. Her relationship with relatives have improved in recent weeks. Past Medical History: Remarkable for obesity, seizure disorder, urinary retention, herpes zoster, and asthma. DRUG ALLERGIES: PENICILLIN. Lab Results: Laboratory Tests 02/09/17 02/09/17 14:30 14:30 WBC 14.4 H RBC 4.64 Hgb 13.8 Hct 42 MCV 90 MCH 30 MCHC 33 RDW 15 Plt Count 278 MPV 9 Neut % (Auto) 79.1 Lymph % (Auto) 15.1 L [place] % (Auto) 5.3 Eos % (Auto) 0.2 Baso % (Auto) 0.3 Absolute Neuts (auto) 11.4 H Absolute Lymphs (auto) 2.2 Absolute Monos (auto) 0.8 Absolute Eos (auto) 0 Absolute Basos (auto) 0 Absolute Nucleated RBC 0 Nucleated RBC % 0 Sodium 138 Potassium 3.3 L Chloride 105 Carbon Dioxide 25 Anion Gap 8 BUN 13 Creatinine 0.86 Est GFR ( Amer) 101.0 Est GFR (Non-Af Amer) 78.6 BUN/Creatinine Ratio 15.1 Glucose 86 Calcium 9.4 Total Bilirubin 0.50 AST 17 ALT 24 Alkaline Phosphatase 80 Total Protein 8.0 Albumin 4.5 Globulin 3.5 Albumin/Globulin Ratio 1.3 TSH 1.21 Salicylates < 2.50 Acetaminophen < 15 Serum Alcohol < 10 Exam Appearance: Obese Hygiene: Normal Grooming: Disheveled Psychomotor Activities: Abnormal-Increased Exhibits Abnormal Movement: No Attitude and Relatedness: Irritable Eye Contact: Fair - Speech Quality: Unpressured Latencies: Normal Quantity: Copious Patient's Decription of Mood: "Terrible" Observed Affect: Labile Affect Consistent with: Dysphoria Patient's Thought Process: Coherent Thought Content: Yes Passive Wish, Yes Suicidal Planning, Yes Paranoid Ideation, No Homicidal Ideation Experiencing Hallucinations: Yes Type of Hallucinations: Visual: Yes, Auditory: Yes, Command: Yes Level of Consciousness: Alert Orientation: Yes Intact Impulse Control: Intact Insight and Judgement: Impaired Impression - Impression Clinical Impression: CLINICAL SUMMARY: A 26-year-old female with history of severe borderline personality dysfunctioning, intellectual disability, chronic self-injury, chronic suicidal ideation and attempts who presented after cutting herself on her left forearm and calling emergency services to report that she was actively suicidal in the setting of relational issues. Medical history is remarkable for urinary retention, obesity, seizure disorder. There is family history of learning and conduct disorders in half-siblings. She describes stressors of distress over breakup of her relationship, nonadherence to outpatient psychiatric treatment and feeling socially isolated. She merits inpatient level of care for safety, evaluation and treatment. Inpatient DSM-IV Dx: 1. Unspecified mood disorder. 2. Posttraumatic stress disorder. 3. Borderline personality disorder. 4. Borderline intellectual functioning. Merits Inpatient Hospitalization: Yes Plan - Treatment Plan Continued Medication Management: Continue Outpt Medication Medications: Current Medications Acetaminophen (Tylenol Tab*) 650 mg PO Q4H PRN PRN Reason: PAIN or TEMP > 101 F Al Hydrox/Mg Hydrox/Simethicone (Maalox Plus*) 30 ml PO Q4H PRN PRN Reason: INDIGESTION Device (Nicotine Mouth Piece*) 1 each INH .CARTRIDGE KEVIN Diphenhydramine HCl (Benadryl Po*) 50 mg PO Q6H PRN PRN Reason: ANXIETY/AGITATION Last Admin: 02/10/17 13:24 Dose: 50 mg Haloperidol (Haldol Tab*) 5 mg PO Q6H PRN PRN Reason: ANXIETY/AGITATION Last Admin: 02/10/17 13:23 Dose: 5 mg Lorazepam (Ativan Tab(*)) 2 mg PO Q6H PRN PRN Reason: ANXIETY/AGITATION Last Admin: 02/10/17 13:23 Dose: 2 mg Nicotine (Nicotine Inhaler*) 10 mg INH Q2H PRN PRN Reason: CRAVING Last Admin: 02/10/17 11:31 Dose: 10 mg Nicotine Polacrilex (Nicotine Gum*) 2 mg PO Q2H PRN PRN Reason: CRAVING Last Admin: 02/10/17 13:24 Dose: 2 mg Topiramate (Topamax(*)) 50 mg PO BID KEVIN Last Admin: 02/10/17 08:18 Dose: 50 mg - Discharge Plan Discharge Plan: Outpatient Follow Up Outpatient Program: [facility] [place]
[2017-02-11] MEDS: Nicotine GUM* 2 MG PO PRN ×7 (00:23→22:32)
[2017-02-11] MEDS: diPHENhydraMINE PO* 50 MG PO PRN ×5 (00:23→22:26)
[2017-02-11] MEDS: LORazepam TAB(*) 1 MG PO PRN ×5 (00:24→22:26)
[2017-02-11] MEDS: Haloperidol TAB* 5 MG PO PRN ×5 (00:24→22:25)
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
[2017-02-11] MEDS: Topiramate TAB(*) 25 MG PO SCH ×3 (07:23→22:53)
[2017-02-11] MEDS: Nicotine Inhaler* 10 MG AMP INH PRN ×2 (07:41→17:45)
[2017-02-11] MEDS ORDERED: LORazepam TAB(*) 1 MG PO ONE ×2 (08:30→18:00)
[2017-02-11] MEDS ORDERED: diPHENhydraMINE PO* 50 MG PO ONE ×2 (08:30→18:00)
[2017-02-11] MEDS ORDERED: Haloperidol TAB* 5 MG PO ONE ×2 (08:30→18:00)
[2017-02-12] MEDS: LORazepam TAB(*) 1 MG PO PRN ×3 (07:39→20:31)
[2017-02-12] MEDS: Haloperidol TAB* 5 MG PO PRN ×2 (07:40→20:31)
[2017-02-12] MEDS: diPHENhydraMINE PO* 50 MG PO PRN ×2 (07:40→20:31)
[2017-02-12] MEDS: Nicotine GUM* 2 MG PO PRN ×4 (07:42→20:30)
[2017-02-12] MEDS: Nicotine Inhaler* 10 MG AMP INH PRN ×3 (07:42→18:11)
[2017-02-12] MEDS ORDERED: Mouth Piece, Nicotine* 1 EACH CARTRIDGE ONE (07:42)
[2017-02-12] MEDS: Topiramate TAB(*) 25 MG PO SCH ×2 (08:17→22:12)
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
[2017-02-12] MEDS ORDERED: Ketorolac TAB * 10 MG TAB PO ONE (16:00)
[2017-02-13] MEDS: Nicotine GUM* 2 MG PO PRN ×6 (06:36→19:40)
[2017-02-13] MEDS: diPHENhydraMINE PO* 50 MG PO PRN ×2 (07:07→19:20)
[2017-02-13] MEDS: LORazepam TAB(*) 1 MG PO PRN ×3 (07:08→19:20)
[2017-02-13 07:45] VITALS: BP 125/56
[2017-02-13] MEDS: Topiramate TAB(*) 25 MG PO SCH ×2 (09:58→22:47)
[2017-02-13] MEDS: Nicotine Inhaler* 10 MG AMP INH PRN ×2 (11:41→15:31)
--- NOTE | 2017-02-13 15:26 | PN ---
Subjective - Subjective Subjective: Marly remains in poor behavioral control, periodically agitated, demanding with staff and disruptive to the milieu. She refuses to be straight catheterize after bladder US shows about 875 ml of urine, insists that she want an indwelling catheter as the straight catheter causes her pain, irritation and swelling. I reminded her of her history of pulling indwelling catheters out in the past without waiting for the balloon to be deflated first, she [id number] for safety. She is open to the idea of being discharged home from here and no longer demands a referral to a state hospital. Objective - Appearance Appearance: Obese Dysmorphic Features: No Hygiene: Normal Grooming: Disheveled - Behavior Psychomotor Activities: Abnormal-Increased - Attitude and Relatedness Attitude and Relatedness: Needy Eye Contact: Fair - Speech Quality: Unpressured Latencies: Normal Quantity: Appropriate - Mood Patient's Decription of Mood: "Upset" - Affect Observed Affect: Non-labile Affect Consistent with: Dysphoria - Thought Process Patient's Thought Process: Coherent Thought Content: No Passive Wish, No Suicidal Planning, No Homicidal Ideation, No Paranoid Ideation - Sensorium Experiencing Hallucinations: No, Sensorium is Clear - Level of Consciousness Level of Consciousness: Alert Orientation: Yes Intact - Impulse Control Impulse Control: Poor - Insight and Judgement Insight and Judgement: Poor - Group Participation Particating in Group Activities: No - Medication Management Medication Management Adherence: Partial Assessment - Assessment Merits Inpatient Hospitalization: Consolidate Improvements, For Discharge Planning Inpatient DSM-IV Dx: 1. Unspecified mood disorder. 2. Posttraumatic stress disorder. 3. Borderline personality disorder. 4. Borderline intellectual functioning. Clinical Impression: CLINICAL SUMMARY: A 26-year-old female with history of severe borderline personality dysfunctioning, intellectual disability, chronic self-injury, chronic suicidal ideation and attempts who presented after cutting herself on her left forearm and calling emergency services to report that she was actively suicidal in the setting of relational issues. Medical history is remarkable for urinary retention, obesity, seizure disorder. There is family history of learning and conduct disorders in half-siblings. She describes stressors of distress over breakup of her relationship, nonadherence to outpatient psychiatric treatment and feeling socially isolated. She merits inpatient level of care for safety, evaluation and treatment. In poor behavioral control in this setting but denies SI/HI or urges for sib. She needs continued admission for stabilization. Plan - Plan Treatment Plan: Name: MARLY WILKINSON Birthdate: 1990 [id number] Continued Medication Management: Continue Outpt Medication Medications: Current Medications Acetaminophen (Tylenol Tab*) 650 mg PO Q4H PRN PRN Reason: PAIN or TEMP > 101 F Al Hydrox/Mg Hydrox/Simethicone (Maalox Plus*) 30 ml PO Q4H PRN PRN Reason: INDIGESTION Device (Nicotine Mouth Piece*) 1 each INH .CARTRIDGE KEVIN Diphenhydramine HCl (Benadryl Po*) 50 mg PO Q6H PRN PRN Reason: ANXIETY/AGITATION Last Admin: 02/13/17 07:07 Dose: 50 mg Haloperidol (Haldol Tab*) 5 mg PO Q6H PRN PRN Reason: ANXIETY/AGITATION Last Admin: 02/12/17 20:31 Dose: 5 mg Lorazepam (Ativan Tab(*)) 2 mg PO Q6H PRN PRN Reason: ANXIETY/AGITATION Last Admin: 02/13/17 13:09 Dose: 2 mg Nicotine (Nicotine Inhaler*) 10 mg INH Q2H PRN PRN Reason: CRAVING Last Admin: 02/13/17 11:41 Dose: 10 mg Nicotine Polacrilex (Nicotine Gum*) 2 mg PO Q2H PRN PRN Reason: CRAVING Last Admin: 02/13/17 11:41 Dose: 2 mg Topiramate (Topamax(*)) 50 mg PO BID KEVIN Last Admin: 02/13/17 09:58 Dose: Not Given - Discharge Plan Discharge Plan: Outpatient Follow Up Outpatient Program: [facility]
[2017-02-13] MEDS: Haloperidol TAB* 5 MG PO PRN (19:20)
[2017-02-14] MEDS: Nicotine GUM* 2 MG PO PRN ×3 (00:01→10:04)
[2017-02-14] MEDS: Haloperidol TAB* 5 MG PO PRN (00:31)
[2017-02-14] MEDS: LORazepam TAB(*) 1 MG PO PRN ×2 (00:32→07:33)
[2017-02-14] MEDS: diPHENhydraMINE PO* 50 MG PO PRN (00:32)
[2017-02-14] MEDS: Topiramate TAB(*) 25 MG PO SCH (08:06)
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
== END 2017-02-14 10:30 | disposition home or self-care (01) | DRG 751 ==
LOC: ED 13:58 → BSU 13:59
PROVIDERS: ADMIT Psychiatry & Neurology Psychiatry; ATTEND Psychiatry & Neurology Psychiatry
DX: F29 Unspecified psychosis not due to a substance or known physiological condition (principal); G40.909 Epilepsy, unspecified, not intractable, without status epilepticus; I10 Essential (primary) hypertension; F43.10 Post-traumatic stress disorder, unspecified; F60.3 Borderline personality disorder; R41.83 Borderline intellectual functioning; F17.210 Nicotine dependence, cigarettes, uncomplicated; E66.9 Obesity, unspecified; Z68.37 Body mass index [BMI] 37.0-37.9, adult; R33.9 Retention of urine, unspecified; J45.909 Unspecified asthma, uncomplicated; Z88.0 Allergy status to penicillin
CPT/HCPCS: 36415; 80053; 80320; 80329; 84443; 85025; 87086; 99222; 99231; 99238; A9270-GY; G0480

== ENCOUNTER 2017-02-15 12:56 | Emergency (ER) | payer MEDICAID, OTHER ==
[2017-02-15] MEDS ORDERED: LORazepam INJ* 2 MG/ML 1 ML VIAL IM ONE (15:28)
[2017-02-15] MEDS ORDERED: Haloperidol INJ IV/IM* 5 MG/ML AMP IM ONE (15:28)
[2017-02-15] MEDS ORDERED: diPHENhydraMINE IV* 50 MG/ML 1 ml VIAL (BENADRYL) IM ONE (15:28)
[2017-02-15 15:46] LABS: Hematocrit 43 % (35-47); Hemoglobin 14.2 g/dl (12.0-16.0); Mean Corpuscular HGB Conc 34 g/dl (31-36); Mean Corpuscular Hemoglobin 30 pg (27-31); Mean Corpuscular Volume 89 fL (80-97); Mean Platelet Volume 9 um3 (7.4-10.4); Red Blood Count 4.77 10^6/ul (4.0-5.4); Red Cell Distribution Width 14 % (10.5-15); White Blood Count 17.5 10^3/ul (3.5-10.8)
[2017-02-15 16:04] LABS: ALT 20 U/L (7-52); AST 16 U/L (13-39); Albumin 4.5 g/dL (3.2-5.2); Alkaline Phosphatase 82 U/L (34-104); Anion Gap 9 mmol/L (2-11); Blood Urea Nitrogen 12 mg/dL (6-24); CO2 Carbon Dioxide 22 mmol/L (22-32); Calcium 9.6 mg/dL (8.6-10.3); Chloride 106 mmol/L (101-111); EGFR African American 109.8 (>60); EGFR Non-African American 85.4 (>60); Globulin 3.7 g/dL (2-4); Glucose 94 mg/dL (70-100); Potassium 3.6 mmol/L (3.5-5.0); Sodium 137 mmol/L (133-145); Total Protein 8.2 g/dL (6.4-8.9)
[2017-02-15 16:16] LABS: Acetaminophen < 15 mcg/mL; Alcohol < 10 mg/dL (<10); Salicylate < 2.50 mg/dL (<30)
[2017-02-15 16:27] LABS: TSH (Thyroid Stimulating Horm) 1.17 mcIU/mL (0.34-5.60)
[2017-02-15] MEDS: Nicotine GUM* 2 MG PO PRN ×3 (16:38→22:29)
[2017-02-15] MEDS ORDERED: Haloperidol TAB* 5 MG PO PRN (21:06)
[2017-02-15] MEDS ORDERED: diPHENhydraMINE PO* 50 MG PO PRN (21:06)
[2017-02-15] MEDS: LORazepam TAB(*) 1 MG PO PRN (22:13)
[2017-02-16] MEDS: Nicotine GUM* 2 MG PO PRN ×6 (02:12→15:12)
[2017-02-16] MEDS: LORazepam TAB(*) 1 MG PO PRN ×2 (06:13→15:00)
[2017-02-16] MEDS ORDERED: LORazepam TAB(*) 1 MG PO ONE (10:15)
[2017-02-16 15:24] VITALS: BP 143/78
--- NOTE | 2017-02-16 16:03 | PN ---
Progress Note - Progress Note Date of Service: 02/16/17 Note: S: Psychiatry is asked to see Marly, who is well known to this clinician, for what appears to be her 22nd psychiatric trip to our ED this year, 14 of which have resulted in admission to the [facility] and several others leading to transfer to outside acute psych units, due to complaints of HI towards her sister. The patient states that AH are commanding her to harm her family, however, she demonstrates no observable responses to internal stimuli. Marly is demanding that we send her to another psychiatric facility, particularly a "long-term" State facility such as [facility] in [place]. Please see SW notes for all referral /transfer options explored by that discipline, but, suffice it to say that an extensive search results in nothing but denials, likely secondary to the patient 's obvious personality pathology. Marly is upset at us, stating "I need to go somewhere inpatient, I'm anxious! You're not trying hard enough." I explain to her that frequent hospitalizations and rehospitalizations have failed to bring any stability or improvement to her symptoms and that further acute admissions, either here or at other facilities are not likely to help her. She admits that she has not followed through with picking up her medications from the pharmacy or seeing outpatient psychiatrist, Dr. Newby at [facility]. She appears particularly upset that we are not gratifying her wishes, in the form of another recurrent psychiatric hospitalization. Appearing to up the ante, she states "Let me go then. I'm going to overdose on pills!" I remind her that she told me she doesn't have medication at home. "I'll use my mom's pills then." I remind her that she told us she's unwelcome to return to her mother' s. "I just got off the phone with her...she's fine having me back." The patient is offered referral to local homeless services but she declines, insisting on a cab to her mother's. "You'll see me back here tonight in the ICU. I'm going to overdose and it will be your fault!" She is reminded that this would be her decision and that she would be responsible for this outcome. She then asks me to leave her alone. O: overweight, white female in green scrubs, anxious and in distress, argumentative, tearful, c/o AH A/P: Borderline Personality DO: This patient is clearly not benefitting from the recent treatment cycle of frequent inpatient hospitalizations followed by quick minimization of symptoms, followed by non-adherence with outpatient follow up, followed by interpersonal crises, followed by further psychiatric readmission. It is my opinion that, not only would Marly not benefit from inpatient hospitalization, it would likely make her condition worse. I recommend discharge to home with close follow up at [facility]. We have discussed this with Marly's current case folder at [facility], a woman named Ines, who agrees to facilitate the care transition. This treatment path is not without risk, as she clearly feels threatened by the loss of control over her ability to gain readmission at will and she certainly has a history of hurting herself as a means of controlling and punishing others. At any rate, steadfast reinforcement of a patient's utilization of outpatient resources is clearly established in the literature as the standard of care in severe borderline PD treatment.
--- NOTE | 2017-02-16 16:07 | ED ---
Yanna Lofton Edward, scribed for Levi Toro MD on 02/16/17 at 1606 . Progress - Progress Note Progress Note: Patient was signed out from Dr. Lombardi to Dr. Toro. Patient was seen by Dr. Wilton Harp of Behavioral Health at [facility]. Dr. Harp felt the patient did not meet the criteria for admission. Dr. Harp diagnosed the patient with depression and discharged her home, with follow up with [facility]. - Consult/PCP Time Called: 17:30 Course/Dx - Diagnoses Provider Diagnoses: Depression, Suicidal ideation The documentation as recorded by the Yanna haskins Edward accurately reflects the service I personally performed and the decisions made by Muna youngblood Drew, MD.
--- NOTE | 2017-02-18 22:58 | ED ---
Prerna Lofton Salem, scribed for Tj Lombardi MD on 02/15/17 at 1613 . Psychiatric Complaint - HPI Summary HPI Summary: Patient is a 26 y/o F who presents to with a psychiatric complaint. She reports SI, as well as a desire to hurt her mom and the babies. She reports hx of self -induced laceration with repair to left shoulder. She reports cuts to left hand. She has no other complaints. - History Of Current Complaint Chief Complaint: EDMentalHealth Time Seen by Provider: 02/15/17 15:07 Hx Obtained From: Patient Hx Last Menstrual Period: MIRENA IUD Onset/Duration: Gradual Onset, Lasting Weeks, Still Present Timing: Constant Severity Initially: Moderate Severity Currently: Moderate Character: Depressed Aggravating Factor(s): Nothing Alleviating Factor(s): Nothing Associated Signs And Symptoms: Positive: Negative Related History: Positive For: Prior Psychiatric Issues Has Suicidal: Reports: Thoughts - Allergies/Home Medications Allergies/Adverse Reactions: Allergies Allergy/AdvReac Type Severity Reaction Status Date / Time Penicillin V Allergy Severe Hives Verified 02/10/17 13:41 Latex Allergy Intermediate Rash Verified 02/10/17 13:41 Lactose Intolerance (GI) Allergy Diarrhea Verified 02/10/17 13:41 glue Allergy Rash Uncoded 02/10/17 13:41 steri strips Allergy Rash Uncoded 02/10/17 13:41 PMH/Surg Hx/FS Hx/Imm Hx Endocrine/Hematology History: Reports: Hx Unexplained Bleeding Denies: Hx Anticoagulant Therapy, Hx Blood Disorders, Hx Thyroid Disease, Other Endocrine/Hematological Disorders - borderline diabetic Comment Only: Hx Diabetes - Borderline Cardiovascular History: Denies: Hx Hypertension, Hx Pacemaker/ICD, Other Cardiovascular Problems/ Disorders Respiratory History: Denies: Hx Asthma - patient denied, Hx Chronic Bronchitis, Hx Chronic Obstructive Pulmonary Disease (COPD), Hx Cystic Fibrosis, Hx Lung Cancer, Hx Pleural Effusion, Hx Pneumonia, Hx Pulmonary Edema, Hx Pulmonary Embolism, Hx Seasonal Allergies, Hx Sleep Apnea, Other Respiratory Problems/Disorders GI History: Denies: Hx Ulcer, Other GI Disorders History: Reports: Other Problems/Disorders - Urinary Retention and Herpes Denies: Hx Renal Disease Musculoskeletal History: Denies: Other Musculoskeletal History Sensory History: Reports: Hx Contacts or Glasses Denies: Hx Cataracts, Hx Eye Injury, Hx Eye Prosthesis, Hx Glaucoma, Hx Legally Blind, Hx Macular Degeneration, Hx Deafness, Hx Hearing Aid, Hx Hearing Problem, Other Sensory Impairments Opthamlomology History: Reports: Hx Contacts or Glasses Denies: Hx Cataracts, Hx Eye Injury, Hx Eye Prosthesis, Hx Glaucoma, Hx Legally Blind, Hx Macular Degeneration, Other Sensory Impairments Neurological History: Reports: Hx Developmental Delay, Hx Headaches, Hx Seizures Denies: Hx Dementia, Hx Migraine, Hx Nerve Disease, Hx Spinal Cord Injury, Hx Transient Ischemic Attacks (TIA), Other Neuro Impairments/Disorders Psychiatric History: Reports: Hx Anxiety, Hx Attention Deficit Hyperactivity Disorder, Hx Depression, Hx Panic Disorder, Hx Post Traumatic Stress Disorder, Hx Inpatient Treatment, Hx Community Mental Health Tx, Hx Bipolar Disorder, Hx Suicide Attempt, Hx of Violent Episodes Against Others - SEE VIOLENCE HX, Hx Substance Abuse, Other Psychiatric Issues/Disorders Denies: Hx Eating Disorder Comment Only: Hx Schizophrenia - Schizoaffective Disorder - Cancer History Hx Chemotherapy: No Hx Radiation Therapy: No Hx Palliative Cancer Treatment: No - Immunization History Date of Tetanus Vaccine: UTD Date of Influenza Vaccine: Unk Infectious Disease History: 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 - Social History Alcohol Use: Rare Alcohol Amount: "drank beer awhile ago" Hx Substance Use: No Substance Use Type: Reports: Sedatives Substance Use Comment - Amount & Last Used: denies substance abuse Hx Tobacco Use: Yes Smoking Status (MU): Heavy Every Day Tobacco Smoker Type: Cigarettes Amount Used/How Often: 4 cigarettes per day Length of Time of Smoking/Using Tobacco: 3 years Have You Smoked in the Last Year: Yes Review of Systems Negative: Fever, Chills Negative: Erythema Negative: Sore Throat Negative: Chest Pain Negative: Shortness Of Breath, Cough Negative: Abdominal Pain, Vomiting, Nausea Negative: dysuria, hematuria Negative: Myalgia, Edema Negative: Rash Neurological: Other - No dizziness. Positive: Depressed, Other - See HPI. All Other Systems Reviewed And Are Negative: Yes Physical Exam - Summary Physical Exam Summary: General: Well appearing, no distress. Pacing. Cardiovascular: Skin is well perfused Pulmonary: No respiratory distress, no tachypnea Abdomen: Non-distended Skin: Warm, pink, dry. Abrasion to left hand. Psych: Pressured speech. Neuro: A&Ox3 Triage Information Reviewed: Yes Vital Signs On Initial Exam: Initial Vitals Temp Pulse Resp BP Pulse Ox 97 F 98 19 120/73 99 02/15/17 13:03 02/15/17 13:03 02/15/17 13:03 02/15/17 13:03 02/15/17 13:03 Vital Signs Reviewed: Yes - Anant Coma Scale Coma Scale Total: 15 Diagnostics - Vital Signs Vital Signs Temp Pulse Resp BP Pulse Ox 02/15/17 15:53 20 02/15/17 15:11 98.1 F 89 20 125/76 100 02/15/17 13:03 97 F 98 19 120/73 99 - Laboratory Lab Results: Lab Results 02/15/17 02/15/17 Range/Units 15:35 15:35 WBC 17.5 H (3.5-10.8) 10^3/ul RBC 4.77 (4.0-5.4) 10^6/ul Hgb 14.2 (12.0-16.0) g/dl Hct 43 (35-47) % MCV 89 (80-97) fL MCH 30 (27-31) pg MCHC 34 (31-36) g/dl RDW 14 (10.5-15) % Plt Count 300 (150-450) 10^3/ul MPV 9 (7.4-10.4) um3 Neut % (Auto) 81.8 (38-83) % Lymph % (Auto) 13.6 L (25-47) % [place] % (Auto) 3.9 (1-9) % Eos % (Auto) 0.1 (0-6) % Baso % (Auto) 0.6 (0-2) % Absolute Neuts (auto) 14.3 H (1.5-7.7) 10^3/ul Absolute Lymphs (auto) 2.4 (1.0-4.8) 10^3/ul Absolute Monos (auto) 0.7 (0-0.8) 10^3/ul Absolute Eos (auto) 0 (0-0.6) 10^3/ul Absolute Basos (auto) 0.1 (0-0.2) 10^3/ul Absolute Nucleated RBC 0 10^3/ul Nucleated RBC % 0 Sodium 137 (133-145) mmol/L Potassium 3.6 (3.5-5.0) mmol/L Chloride 106 (101-111) mmol/L Carbon Dioxide 22 (22-32) mmol/L Anion Gap 9 (2-11) mmol/L BUN 12 (6-24) mg/dL Creatinine 0.80 (0.51-0.95) mg/dL Est GFR ( Amer) 109.8 (>60) Est GFR (Non-Af Amer) 85.4 (>60) BUN/Creatinine Ratio 15.0 (8-20) Glucose 94 (70-100) mg/dL Calcium 9.6 (8.6-10.3) mg/dL Total Bilirubin 0.50 (0.2-1.0) mg/dL AST 16 (13-39) U/L ALT 20 (7-52) U/L Alkaline Phosphatase 82 (34-104) U/L Total Protein 8.2 (6.4-8.9) g/dL Albumin 4.5 (3.2-5.2) g/dL Globulin 3.7 (2-4) g/dL Albumin/Globulin Ratio 1.2 (1-3) TSH Pending Salicylates Pending Acetaminophen Pending Serum Alcohol Pending Result Diagrams: 02/15/17 15:35 02/15/17 15:35 Lab Statement: Any lab studies that have been ordered have been reviewed, and results considered in the medical decision making process. Course/Dx - Course Course Of Treatment: 26 y/o F presents with laceration to left hand and SI. Hx of self-induced laceration. She received Haldol, Ativan, and Benadryl in ED course. Pending mental health evaluation. - Differential Dx/Clinical Impression Provider Diagnosis: Depression, Suicidal ideation Discharge - Discharge Plan Condition: Stable Disposition: OTHER Discharge Disposition Comment: Pt signed out at shift change. Pending mental health evaluation. Referrals: Don Love, CREDIT CORRESPONDENCE CLERK [Primary Care Provider] - The documentation as recorded by the Prerna haskins Salem accurately reflects the service I personally performed and the decisions made by me, Tj Lombardi MD.
== END 2017-02-16 15:30 ==
LOC: ED 12:56
DX: F32.9 Major depressive disorder, single episode, unspecified (principal); R45.851 Suicidal ideations
CPT/HCPCS: 36415; 80053; 80320; 80329; 84443; 85025; 96374; 96375; 99285; A9270-GY; G0480; J1200; J1630; J2060

== ENCOUNTER 2017-02-16 17:01 | Emergency (ER) | payer OTHER ==
[2017-02-16 17:27] VITALS: BP 140/82
[2017-02-16] MEDS ORDERED: NS 0.9% 1000 ML* 2,000 ML IV ONE (17:41)
[2017-02-16 17:53] LABS: Hematocrit 42 % (35-47); Mean Corpuscular HGB Conc 33 g/dl (31-36); Mean Corpuscular Hemoglobin 30 pg (27-31); Mean Corpuscular Volume 90 fL (80-97); Mean Platelet Volume 9 um3 (7.4-10.4); Red Blood Count 4.72 10^6/ul (4.0-5.4); Red Cell Distribution Width 15 % (10.5-15); White Blood Count 14.1 10^3/ul (3.5-10.8)
[2017-02-16 18:05] LABS: ALT 19 U/L (7-52); AST 16 U/L (13-39); Albumin 4.5 g/dL (3.2-5.2); Alkaline Phosphatase 86 U/L (34-104); Anion Gap 6 mmol/L (2-11); BUN/Creatinine Ratio 12.5 (8-20); Blood Urea Nitrogen 11 mg/dL (6-24); CO2 Carbon Dioxide 25 mmol/L (22-32); Calcium 9.6 mg/dL (8.6-10.3); Chloride 106 mmol/L (101-111); Creatine Kinase 177 U/L (10-223); EGFR African American 98.4 (>60); EGFR Non-African American 76.5 (>60); Globulin 3.6 g/dL (2-4); Glucose 82 mg/dL (70-100); Potassium 3.6 mmol/L (3.5-5.0); Sodium 137 mmol/L (133-145); Total Protein 8.1 g/dL (6.4-8.9)
[2017-02-16 18:06] LABS: Acetaminophen < 15 mcg/mL; Alcohol < 10 mg/dL (<10); Salicylate < 2.50 mg/dL (<30)
[2017-02-16 18:14] LABS: TSH (Thyroid Stimulating Horm) 1.95 mcIU/mL (0.34-5.60)
[2017-02-16] MEDS ORDERED: Nicotine GUM* 2 MG PO PRN (18:32)
--- NOTE | 2017-02-16 18:51 | ED ---
Yanna Lofton Edward, scribed for Levi Toro MD on 02/16/17 at 1749 . Psychiatric Complaint - HPI Summary HPI Summary: 26 y/o female presents to ED c/o depression. Patient was seen in the ED earlier today for depression. After being discharged home the patient cut herself on her L arm 6 times and took pills with SI. One of the lacerations is superficial. PMHx anxiety, depression and multiple suicide attempts. Smoker. No EtOH use. - History Of Current Complaint Chief Complaint: EDMentalHealth Time Seen by Provider: 02/16/17 17:40 Hx Obtained From: Patient Hx Last Menstrual Period: MIRENA IUD Onset/Duration: Gradual Onset Character: Depressed Related History: Positive For: Prior Psychiatric Issues - 22nd visit to the ED this year for these Sx Has Suicidal: Reports: Thoughts, Demonstrates Gesture, Has Prior Attempt(s) - Allergies/Home Medications Allergies/Adverse Reactions: Allergies Allergy/AdvReac Type Severity Reaction Status Date / Time Penicillin V Allergy Severe Hives Verified 02/10/17 13:41 Latex Allergy Intermediate Rash Verified 02/10/17 13:41 Lactose Intolerance (GI) Allergy Diarrhea Verified 02/10/17 13:41 glue Allergy Rash Uncoded 02/10/17 13:41 steri strips Allergy Rash Uncoded 02/10/17 13:41 PMH/Surg Hx/FS Hx/Imm Hx Previously Healthy: No Endocrine/Hematology History: Reports: Hx Unexplained Bleeding Denies: Hx Anticoagulant Therapy, Hx Blood Disorders, Hx Thyroid Disease, Other Endocrine/Hematological Disorders - borderline diabetic Comment Only: Hx Diabetes - Borderline Cardiovascular History: Denies: Hx Hypertension, Hx Pacemaker/ICD, Other Cardiovascular Problems/ Disorders Respiratory History: Denies: Hx Asthma - patient denied, Hx Chronic Bronchitis, Hx Chronic Obstructive Pulmonary Disease (COPD), Hx Cystic Fibrosis, Hx Lung Cancer, Hx Pleural Effusion, Hx Pneumonia, Hx Pulmonary Edema, Hx Pulmonary Embolism, Hx Seasonal Allergies, Hx Sleep Apnea, Other Respiratory Problems/Disorders GI History: Denies: Hx Ulcer, Other GI Disorders History: Reports: Other Problems/Disorders - Urinary Retention and Herpes Denies: Hx Renal Disease Musculoskeletal History: Denies: Other Musculoskeletal History Sensory History: Reports: Hx Contacts or Glasses Denies: Hx Cataracts, Hx Eye Injury, Hx Eye Prosthesis, Hx Glaucoma, Hx Legally Blind, Hx Macular Degeneration, Hx Deafness, Hx Hearing Aid, Hx Hearing Problem, Other Sensory Impairments Opthamlomology History: Reports: Hx Contacts or Glasses Denies: Hx Cataracts, Hx Eye Injury, Hx Eye Prosthesis, Hx Glaucoma, Hx Legally Blind, Hx Macular Degeneration, Other Sensory Impairments Neurological History: Reports: Hx Developmental Delay, Hx Headaches, Hx Seizures Denies: Hx Dementia, Hx Migraine, Hx Nerve Disease, Hx Spinal Cord Injury, Hx Transient Ischemic Attacks (TIA), Other Neuro Impairments/Disorders Psychiatric History: Reports: Hx Anxiety, Hx Attention Deficit Hyperactivity Disorder, Hx Eating Disorder, Hx Depression, Hx Panic Disorder, Hx Post Traumatic Stress Disorder, Hx Inpatient Treatment, Hx Community Mental Health Tx , Hx Bipolar Disorder, Hx Suicide Attempt, Hx of Violent Episodes Against Others - SEE VIOLENCE HX, Hx Substance Abuse, Other Psychiatric Issues/Disorders Comment Only: Hx Schizophrenia - Schizoaffective Disorder - Cancer History Hx Chemotherapy: No Hx Radiation Therapy: No Hx Palliative Cancer Treatment: No - Immunization History Date of Tetanus Vaccine: UTD Date of Influenza Vaccine: Unk Infectious Disease History: No Infectious Disease History: 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 - Social History Alcohol Use: Rare Alcohol Amount: "drank beer awhile ago" Hx Substance Use: No Substance Use Type: Reports: Sedatives Substance Use Comment - Amount & Last Used: denies substance abuse Hx Tobacco Use: Yes Smoking Status (MU): Heavy Every Day Tobacco Smoker Type: Cigarettes Amount Used/How Often: 4 cigarettes per day Length of Time of Smoking/Using Tobacco: 3 years Have You Smoked in the Last Year: Yes Review of Systems Constitutional: Negative Eyes: Negative ENT: Negative Cardiovascular: Negative Respiratory: Negative Gastrointestinal: Negative Genitourinary: Negative Musculoskeletal: Negative Skin: Other - 6 lacerations on arm, 1 superficial Neurological: Negative Positive: Depressed - SI All Other Systems Reviewed And Are Negative: Yes Physical Exam - Summary Physical Exam Summary: The patient is well-nourished in no acute distress and in no acute pain. The skin is warm and dry and skin color reflects adequate perfusion. There are 6 lacerations on the patient's L forearm, 3, .5, 2, 1, 2, and 1 cm wide. One of the lacerations is superficial. HEENT: The head is normocephalic and atraumatic. The pupils are equal and reactive. The conjunctivae are clear and without drainage. Nares are patent and without drainage. Mouth reveals moist mucous membranes and the throat is without erythema and exudate. Neck is supple with full range of motion and non-tender. There are no carotid bruits. There is no neck vein distension. Respiratory: Chest is non-tender. Lungs are clear to auscultation and breath sounds are symmetrical and equal. Cardiovascular: Hear is regular rate and rhythm. There is no murmur or rub auscultated. There is no peripheral edema and pulses are symmetrical and equal. Abdomen: The abdomen is soft and non-tender. There are normal bowel sounds heard in all four quadrants and there is no organomegaly palpated. Musculoskeletal: There is no back pain noted. Extremities are non-tender with full range of motion. There is good capillary refill. There is no peripheral edema or calf tenderness elicited. Distal neurovascular intact. Neurological: Patient is alert and oriented to person, place and time. The patient has symmetrical motor strength in all four extremities. Cranial nerves are grossly intact. Deep tendon reflexes are symmetrical and equal in all four extremities. Psychiatric: The patient has an appropriate affect and does not exhibit any anxiety or depression. Triage Information Reviewed: Yes Vital Signs On Initial Exam: Initial Vitals Temp Pulse Resp BP Pulse Ox 97.9 F 97 12 140/82 99 02/16/17 17:02 02/16/17 17:02 02/16/17 17:02 02/16/17 17:02 02/16/17 17:02 Vital Signs Reviewed: Yes Procedures - Laceration/Wound Repair 1 Location: upper extremity - L forearm Anesthesia: Local, 2.0%, Lido Irrigated w/ Saline (ccs): 500 Laceration/Wound Explored: clean - Cleaned with Hibiclens Closure: Russell #__ - 33 Layer Closure?: Yes Diagnostics - Vital Signs Vital Signs Temp Pulse Resp BP Pulse Ox 02/16/17 17:02 97.9 F 97 12 140/82 99 - Laboratory Lab Results: Lab Results 02/16/17 02/16/17 Range/Units 17:20 17:20 WBC 14.1 H (3.5-10.8) 10^3/ul RBC 4.72 (4.0-5.4) 10^6/ul Hgb 14.0 (12.0-16.0) g/dl Hct 42 (35-47) % MCV 90 (80-97) fL MCH 30 (27-31) pg MCHC 33 (31-36) g/dl RDW 15 (10.5-15) % Plt Count 285 (150-450) 10^3/ul MPV 9 (7.4-10.4) um3 Neut % (Auto) 61.5 (38-83) % Lymph % (Auto) 29.0 (25-47) % [place] % (Auto) 7.8 (1-9) % Eos % (Auto) 1.1 (0-6) % Baso % (Auto) 0.6 (0-2) % Absolute Neuts (auto) 8.7 H (1.5-7.7) 10^3/ul Absolute Lymphs (auto) 4.1 (1.0-4.8) 10^3/ul Absolute Monos (auto) 1.1 H (0-0.8) 10^3/ul Absolute Eos (auto) 0.2 (0-0.6) 10^3/ul Absolute Basos (auto) 0.1 (0-0.2) 10^3/ul Absolute Nucleated RBC 0.01 10^3/ul Nucleated RBC % 0.1 Sodium 137 (133-145) mmol/L Potassium 3.6 (3.5-5.0) mmol/L Chloride 106 (101-111) mmol/L Carbon Dioxide 25 (22-32) mmol/L Anion Gap 6 (2-11) mmol/L BUN 11 (6-24) mg/dL Creatinine 0.88 (0.51-0.95) mg/dL Est GFR ( Amer) 98.4 (>60) Est GFR (Non-Af Amer) 76.5 (>60) BUN/Creatinine Ratio 12.5 (8-20) Glucose 82 (70-100) mg/dL Calcium 9.6 (8.6-10.3) mg/dL Total Bilirubin 0.40 (0.2-1.0) mg/dL AST 16 (13-39) U/L ALT 19 (7-52) U/L Alkaline Phosphatase 86 (34-104) U/L Total Creatine Kinase 177 (10-223) U/L Total Protein 8.1 (6.4-8.9) g/dL Albumin 4.5 (3.2-5.2) g/dL Globulin 3.6 (2-4) g/dL Albumin/Globulin Ratio 1.3 (1-3) TSH 1.95 (0.34-5.60) mcIU/mL Salicylates < 2.50 (<30) mg/dL Acetaminophen < 15 mcg/mL Serum Alcohol < 10 (<10) mg/dL Result Diagrams: 02/16/17 17:20 02/16/17 17:20 Lab Statement: Any lab studies that have been ordered have been reviewed, and results considered in the medical decision making process. Course/Dx - Course Assessment/Plan: 26 y/o female presents to ED c/o depression. Patient was seen in the ED earlier today for depression. After being discharged home the patient cut herself on her L arm 6 times and took pills with SI. One of the lacerations is superficial. poison center recommends observation for 6 hours. Patient is awaiting MHU evaluation. - Differential Dx/Clinical Impression Provider Diagnosis: Depression, Lacerations of multiple sites of left arm, Suicidal intent Discharge - Discharge Plan Condition: Stable Disposition: OTHER Discharge Disposition Comment: Signout to Dr. Mcfadden Patient Education Materials: Depression (ED), Laceration (ED), Suicide Prevention for Adults (ED) Referrals: Don Love, PAID INTERN [Primary Care Provider] - The documentation as recorded by the Yanna haskins Edward accurately reflects the service I personally performed and the decisions made by me, Levi Toro MD.
== END 2017-02-17 03:34 ==
LOC: ED 17:01
DX: S51.812A Laceration without foreign body of left forearm, initial encounter (principal); F32.9 Major depressive disorder, single episode, unspecified; R45.851 Suicidal ideations; F17.210 Nicotine dependence, cigarettes, uncomplicated; X78.9XXA Intentional self-harm by unspecified sharp object, initial encounter; Y93.9 Activity, unspecified; Y92.9 Unspecified place or not applicable
CPT/HCPCS: 36415; 80053; 80320; 80329; 82550; 84443; 85025; 99284; A9270-GY; G0480

== ENCOUNTER 2017-03-14 14:10 | Emergency (ER) | payer MEDICAID, OTHER ==
[2017-03-14 15:01] LABS: Hematocrit 41 % (35-47); Hemoglobin 13.8 g/dl (12.0-16.0); Mean Corpuscular HGB Conc 34 g/dl (31-36); Mean Corpuscular Hemoglobin 30 pg (27-31); Mean Corpuscular Volume 88 fL (80-97); Mean Platelet Volume 9 um3 (7.4-10.4); Red Blood Count 4.66 10^6/ul (4.0-5.4); Red Cell Distribution Width 14 % (10.5-15)
[2017-03-14 15:20] LABS: ALT 23 U/L (7-52); AST 21 U/L (13-39); Albumin 4.3 g/dL (3.2-5.2); Alkaline Phosphatase 70 U/L (34-104); Anion Gap 8 mmol/L (2-11); BUN/Creatinine Ratio 13.9 (8-20); Blood Urea Nitrogen 11 mg/dL (6-24); CO2 Carbon Dioxide 24 mmol/L (22-32); Calcium 9.5 mg/dL (8.6-10.3); Chloride 102 mmol/L (101-111); EGFR African American 111.4 (>60); EGFR Non-African American 86.7 (>60); Globulin 3.8 g/dL (2-4); Glucose 90 mg/dL (70-100); Sodium 134 mmol/L (133-145); Total Protein 8.1 g/dL (6.4-8.9)
[2017-03-14 15:20] LABS: Urine Bacteria Absent (Absent); Urine Bilirubin Negative (Negative); Urine Glucose Negative (Negative); Urine Nitrite Negative (Negative)
[2017-03-14 15:25] LABS: Benzodiazepine Urine Screen None Detected (None Detect)
--- NOTE | 2017-03-14 15:38 | ED ---
Substance Abuse/Use - HPI Summary HPI Summary: Pt here w/ ativan overdose - called ambulance to come get her because she feels out of it, doesn't know where she is. When asked where she was when she took ativan, she reports she doesn't know. Took 6 tabs of ativan today (mg per tab unknown however most recent rx through [facility] reveals lorazepam 1mg - #30 for 10 day supply which means she was most likely advised to take this q 8 hours - rx'd by Ismael Johnson on 02/27/2017). When asked why she took these, she states she doesn't know. When asked if she had a bad day, she states yes. When asked what happened she states she doesn't want to talk about it. She also has cut her UE's which she does routinely - Rt wrist and Lt hand today. Repeatedly asks if I will close these with sabra. Denies chest pain, SOB, difficulty breathing. Does not recall if she's had LOC, head injury nor if she's vomited. NOTE: other [facility] report indicates rx for zolpidem 10 mg - #5 on 01/15/2017 and # 7 on 01/25/2017. - History Of Current Complaint Chief Complaint: EDMentalHealth Stated Complaint: MENTAL HEALTH 945 Time Seen by Provider: 03/14/17 14:26 Hx Obtained From: Patient Hx Last Menstrual Period: MIRENA IUD - Allergies/Home Medications Allergies/Adverse Reactions: Allergies Allergy/AdvReac Type Severity Reaction Status Date / Time Penicillin V Allergy Severe Hives Verified 02/10/17 13:41 Latex Allergy Intermediate Rash Verified 02/10/17 13:41 Lactose Intolerance (GI) Allergy Diarrhea Verified 02/10/17 13:41 glue Allergy Rash Uncoded 02/10/17 13:41 steri strips Allergy Rash Uncoded 02/10/17 13:41 PMH/Surg Hx/FS Hx/Imm Hx Previously Healthy: No - chronic MH issue w/ frequenct, recurrent exacerbations Endocrine/Hematology History: Reports: Hx Unexplained Bleeding Denies: Hx Anticoagulant Therapy, Hx Blood Disorders, Hx Thyroid Disease, Other Endocrine/Hematological Disorders - borderline diabetic Comment Only: Hx Diabetes - Borderline Cardiovascular History: Denies: Hx Hypertension, Hx Pacemaker/ICD, Other Cardiovascular Problems/ Disorders Respiratory History: Denies: Hx Asthma - patient denied, Hx Chronic Bronchitis, Hx Chronic Obstructive Pulmonary Disease (COPD), Hx Cystic Fibrosis, Hx Lung Cancer, Hx Pleural Effusion, Hx Pneumonia, Hx Pulmonary Edema, Hx Pulmonary Embolism, Hx Seasonal Allergies, Hx Sleep Apnea, Other Respiratory Problems/Disorders GI History: Denies: Hx Ulcer, Other GI Disorders History: Reports: Other Problems/Disorders - Urinary Retention and Herpes Denies: Hx Renal Disease Musculoskeletal History: Denies: Other Musculoskeletal History Sensory History: Reports: Hx Contacts or Glasses Denies: Hx Cataracts, Hx Eye Injury, Hx Eye Prosthesis, Hx Glaucoma, Hx Legally Blind, Hx Macular Degeneration, Hx Deafness, Hx Hearing Aid, Hx Hearing Problem, Other Sensory Impairments Opthamlomology History: Reports: Hx Contacts or Glasses Denies: Hx Cataracts, Hx Eye Injury, Hx Eye Prosthesis, Hx Glaucoma, Hx Legally Blind, Hx Macular Degeneration, Other Sensory Impairments Neurological History: Reports: Hx Developmental Delay, Hx Headaches, Hx Seizures Denies: Hx Dementia, Hx Migraine, Hx Nerve Disease, Hx Spinal Cord Injury, Hx Transient Ischemic Attacks (TIA), Other Neuro Impairments/Disorders Psychiatric History: Reports: Hx Anxiety, Hx Attention Deficit Hyperactivity Disorder, Hx Eating Disorder, Hx Depression, Hx Panic Disorder, Hx Post Traumatic Stress Disorder, Hx Inpatient Treatment, Hx Community Mental Health Tx , Hx Bipolar Disorder, Hx Suicide Attempt, Hx of Violent Episodes Against Others - SEE VIOLENCE HX, Hx Substance Abuse - OD on ativan 03/14/2017, Other Psychiatric Issues/Disorders Comment Only: Hx Schizophrenia - Schizoaffective Disorder - Cancer History Hx Chemotherapy: No Hx Radiation Therapy: No Hx Palliative Cancer Treatment: No - Immunization History Date of Tetanus Vaccine: UTD Date of Influenza Vaccine: Unk Infectious Disease History: No Infectious Disease History: 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 - Social History Alcohol Use: Occasionally Hx Substance Use: No Substance Use Type: Reports: Sedatives Substance Use Comment - Amount & Last Used: denies substance abuse Hx Tobacco Use: Yes Smoking Status (MU): Current Every Day Smoker Type: Cigarettes Amount Used/How Often: 4 cigarettes per day Length of Time of Smoking/Using Tobacco: 3 years Have You Smoked in the Last Year: Yes Review of Systems Positive: Fatigue Eyes: Negative ENT: Negative Cardiovascular: Negative Negative: Chest Pain Respiratory: Negative Negative: Shortness Of Breath, Cough Positive: Abdominal Pain - hasn't eaten all day. Negative: Nausea Positive: see HPI Musculoskeletal: Negative Skin: Other - see HPI Neurological: Other - see HPI Psychological: Other - see HPI All Other Systems Reviewed And Are Negative: Yes Physical Exam Triage Information Reviewed: Yes Vital Signs On Initial Exam: Initial Vitals Temp Pulse Resp BP Pulse Ox 99.9 F 143 14 123/81 99 03/14/17 14:30 03/14/17 14:30 03/14/17 14:30 03/14/17 14:30 03/14/17 14:30 Vital Signs Reviewed: Yes Appearance: Positive: No Pain Distress, Ill-Appearing - appears fatigued, shallow breathing, responds to questions but sometimes slowly, Obese Skin: Positive: Warm - 3 linear lacerations over Rt ventral wrist; 1 superficial abrasion running along ulnar bone (scabbing); superficial lacerations over Lt palm Head/Face: Positive: Normal Head/Face Inspection - NTTP Eyes: Positive: EOMI, OKSANA, Conjunctiva Clear ENT: Positive: Hearing grossly normal, Pharynx normal, TMs normal Neck: Positive: Nontender Respiratory/Lung Sounds: Positive: Breath Sounds Present. Negative: Rales, Rhonchi, Stridor, Wheezes Cardiovascular: Positive: Pulses are Symmetrical in both Upper and Lower Extremities, Tachycardia, S1, S2 Abdomen Description: Positive: Nontender, No Organomegaly, Soft Bowel Sounds: Positive: Present Musculoskeletal: Positive: Normal, Strength/ROM Intact Neurological: Positive: Sensory/Motor Intact, CN Intact II-III, Other - drifts to sleep sitting up at times but is easily rousable with verbal cues. Negative : Alert, Oriented to Person Place, Time - pt reports she does not know where she is, appears lethargic and intoxicated - no signs of head injury Psychiatric: Positive: Other - low mood, anxious w/ requests but not as demanding and does not perseverate as much as usual, subdued compared to baseline - responds to pain when cleaning wounds - Anant Coma Scale Coma Scale Total: 15 Procedures - Laceration/Wound Repair 1 Location: upper extremity - Lt wrist Description: Linear Length, Depth and Shape: #1 3cm x 2mm; #2 2.5cm x 2mm; #3 2cm x 1mm Betadine Prep?: No Irrigated w/ Saline (ccs): 100 - all wounds cleaned with antiseptic spray Laceration/Wound Explored: clean Closure: Skin Adhesive, SteriStrips Layer Closure?: No Sterile Dressing Applied?: Yes - sterile steristrips/dermadond and gauze wrap Diagnostics - Vital Signs Vital Signs Temp Pulse Resp BP Pulse Ox 03/14/17 14:30 99.9 F 143 14 123/81 99 - Laboratory Lab Results: Lab Results 03/14/17 03/14/17 03/14/17 Range/Units 14:51 14:51 15:01 WBC 18.0 H (3.5-10.8) 10^3/ul RBC 4.66 (4.0-5.4) 10^6/ul Hgb 13.8 (12.0-16.0) g/dl Hct 41 (35-47) % MCV 88 (80-97) fL MCH 30 (27-31) pg MCHC 34 (31-36) g/dl RDW 14 (10.5-15) % Plt Count 327 (150-450) 10^3/ul MPV 9 (7.4-10.4) um3 Neut % (Auto) 78.5 (38-83) % Lymph % (Auto) 13.2 L (25-47) % [place] % (Auto) 7.3 (1-9) % Eos % (Auto) 0.3 (0-6) % Baso % (Auto) 0.7 (0-2) % Absolute Neuts (auto) 14.1 H (1.5-7.7) 10^3/ul Absolute Lymphs (auto) 2.4 (1.0-4.8) 10^3/ul Absolute Monos (auto) 1.3 H (0-0.8) 10^3/ul Absolute Eos (auto) 0.1 (0-0.6) 10^3/ul Absolute Basos (auto) 0.1 (0-0.2) 10^3/ul Absolute Nucleated RBC 0 10^3/ul Nucleated RBC % 0 Sodium 134 (133-145) mmol/L Potassium 4.0 (3.5-5.0) mmol/L Chloride 102 (101-111) mmol/L Carbon Dioxide 24 (22-32) mmol/L Anion Gap 8 (2-11) mmol/L BUN 11 (6-24) mg/dL Creatinine 0.79 (0.51-0.95) mg/dL Est GFR ( Amer) 111.4 (>60) Est GFR (Non-Af Amer) 86.7 (>60) BUN/Creatinine Ratio 13.9 (8-20) Glucose 90 (70-100) mg/dL Calcium 9.5 (8.6-10.3) mg/dL Total Bilirubin 0.40 (0.2-1.0) mg/dL AST 21 (13-39) U/L ALT 23 (7-52) U/L Alkaline Phosphatase 70 (34-104) U/L Total Protein 8.1 (6.4-8.9) g/dL Albumin 4.3 (3.2-5.2) g/dL Globulin 3.8 (2-4) g/dL Albumin/Globulin Ratio 1.1 (1-3) TSH Pending Urine Color Yellow Urine Appearance Clear Urine pH 7.0 (5-9) Ur Specific Mcdonald 1.018 (1.010-1.030) Urine Protein Negative (Negative) Urine Ketones Negative (Negative) Urine Blood 2+ H (Negative) Urine Nitrate Negative (Negative) Urine Bilirubin Negative (Negative) Urine Urobilinogen Negative (Negative) Ur Leukocyte Esterase Trace H (Negative) Urine WBC (Auto) Trace(0-5/hpf) (Absent) Urine RBC (Auto) 2+(6-10/hpf) H (Absent) Ur Squamous Epith Cells Present H (Absent) Urine Bacteria Absent (Absent) Urine Glucose Negative (Negative) Salicylates Pending Urine Opiates Screen (None Detect) Acetaminophen Pending Ur Barbiturates Screen (None Detect) Ur Phencyclidine Scrn (None Detect) Ur Amphetamines Screen (None Detect) U Benzodiazepines Scrn (None Detect) Urine Cocaine Screen (None Detect) U Cannabinoids Screen (None Detect) Serum Alcohol Pending 08/02/17 Range/Units 15:01 WBC (3.5-10.8) 10^3/ul RBC (4.0-5.4) 10^6/ul Hgb (12.0-16.0) g/dl Hct (35-47) % MCV (80-97) fL MCH (27-31) pg MCHC (31-36) g/dl RDW (10.5-15) % Plt Count (150-450) 10^3/ul MPV (7.4-10.4) um3 Neut % (Auto) (38-83) % Lymph % (Auto) (25-47) % [place] % (Auto) (1-9) % Eos % (Auto) (0-6) % Baso % (Auto) (0-2) % Absolute Neuts (auto) (1.5-7.7) 10^3/ul Absolute Lymphs (auto) (1.0-4.8) 10^3/ul Absolute Monos (auto) (0-0.8) 10^3/ul Absolute Eos (auto) (0-0.6) 10^3/ul Absolute Basos (auto) (0-0.2) 10^3/ul Absolute Nucleated RBC 10^3/ul Nucleated RBC % Sodium (133-145) mmol/L Potassium (3.5-5.0) mmol/L Chloride (101-111) mmol/L Carbon Dioxide (22-32) mmol/L Anion Gap (2-11) mmol/L BUN (6-24) mg/dL Creatinine (0.51-0.95) mg/dL Est GFR ( Amer) (>60) Est GFR (Non-Af Amer) (>60) BUN/Creatinine Ratio (8-20) Glucose (70-100) mg/dL Calcium (8.6-10.3) mg/dL Total Bilirubin (0.2-1.0) mg/dL AST (13-39) U/L ALT (7-52) U/L Alkaline Phosphatase (34-104) U/L Total Protein (6.4-8.9) g/dL Albumin (3.2-5.2) g/dL Globulin (2-4) g/dL Albumin/Globulin Ratio (1-3) TSH Urine Color Urine Appearance Urine pH (5-9) Ur Specific Mcdonald (1.010-1.030) Urine Protein (Negative) Urine Ketones (Negative) Urine Blood (Negative) Urine Nitrate (Negative) Urine Bilirubin (Negative) Urine Urobilinogen (Negative) Ur Leukocyte Esterase (Negative) Urine WBC (Auto) (Absent) Urine RBC (Auto) (Absent) Ur Squamous Epith Cells (Absent) Urine Bacteria (Absent) Urine Glucose (Negative) Salicylates Urine Opiates Screen None detected (None Detect) Acetaminophen Ur Barbiturates Screen None detected (None Detect) Ur Phencyclidine Scrn None detected (None Detect) Ur Amphetamines Screen None detected (None Detect) U Benzodiazepines Scrn None detected (None Detect) Urine Cocaine Screen None detected (None Detect) U Cannabinoids Screen None detected (None Detect) Serum Alcohol Result Diagrams: 03/14/17 14:51 03/14/17 14:51 Lab Statement: Any lab studies that have been ordered have been reviewed, and results considered in the medical decision making process. Course/Dx - Course Course Of Treatment: Pt presents with ativan OD - she is confused about her surroundings at times but is calm and cooperative - recalls details of recent history (ie. that she cut herself last month and Dr. Toro closed her wounds with sabra). Her wounds were repaired today w/ steristrips and dermabond as they were not deep and this recurrent behavioral of cutting and requesting sutures or sabra is counterproductive. A head CT was ordered as she may have had a head injury. She is also shallow breathing most likely d/t ativan OD so chest auscultation may not be completely accurate and pulse ox dropped to low 90 ' a few times on RA - decided to assess w/ CXR as again, she does not recall details of her day nor can she say fr sure if she vomited or not - reports multiple times while here she doesn't feel well. Although these tests were ordered they were delayed d/t need for neg test. This has returned neg and radiology aware. Pt is stable (physically) and being signed out to Jenny Xavier PA-C at 18:30. aware she need evaluation as well. - Diagnoses Provider Diagnoses: Overdose, Intentional self-harm by razor blade Discharge - Discharge Plan Condition: Stable Disposition: OTHER Discharge Disposition Comment: signed out to Jenny Xavier PA-C @ 18:40 Addendum entered and electronically signed by Jenny Xavier PA 03/15/17 00: 49: ED Addendum Addendum: Sign out from Dahiana Nair PA-C pending imaging study results. Patient's labs unremarkable. Negative CT brain and chest x-ray. Clear for MHE. No complaints and PE exam normal. Signed out to Rajeev at shift change pending MHE and dispo.
[2017-03-14 15:39] LABS: Acetaminophen < 15 mcg/mL; Alcohol < 10 mg/dL (<10); Salicylate < 2.50 mg/dL (<30)
--- NOTE | 2017-03-14 18:51 | RAD ---
INDICATION: Overdose. Possible aspiration. COMPARISON: February 16, 2016 TECHNIQUE: PA and lateral dual-energy views were obtained. FINDINGS: Bones/Soft Tissues: There are no acute bony findings. Cardiomediastinal: The cardiomediastinal silhouette is normal. Lungs: There are no infiltrates. Pleura: There are no pleural effusions. Other: None IMPRESSION: NO ACTIVE DISEASE.
--- NOTE | 2017-03-14 18:51 | RAD ---
INDICATION: Overdose COMPARISON: CT brain March 13, 2016 TECHNIQUE: Noncontrast axial source images were acquired from the skull base to the vertex. FINDINGS: Ventricles/sulci: The ventricles and cisterns are normal in size and configuration for age. Brain parenchyma: There is no focal parenchymal finding, evidence of intracranial mass, or intracranial mass effect. Intracranial hemorrhage:None. Extra-axial spaces: There are no abnormal extra axial fluid collections or evidence of extra-axial mass. Calvarium: There is no calvarial fracture or other calvarial abnormality. Scalp: There is no evidence of scalp or extracalvarial soft tissue abnormality. Paranasal sinuses/mastoid: The paranasal sinuses and mastoid air cells are clear. Other: None. IMPRESSION: NEGATIVE EXAMINATION
[2017-03-14 23:10] VITALS: BP 100/58
[2017-03-15] MEDS ORDERED: Nicotine GUM* 2 MG ONE (07:05)
[2017-03-15] MEDS: Nicotine GUM* 2 MG PO PRN ×2 (07:06→08:55)
[2017-03-15] MEDS ORDERED: LORazepam TAB(*) 1 MG PO ONE (08:39)
--- NOTE | 2017-03-15 09:13 | UC ---
Progress - Progress Note Progress Note: Evaluated the patient who is being seen by MANNY Guerrero. Her respirations are somewhat shallow and O2 sat is about 94%. She is talking. Recommended CXR incase she aspirated. No known Hx of asthma. Dr. Lombardi note above. CXR and CT brain both neg. Pt was seen by psychiatry. elevated wbc count noted 18, was 17.5 in February. Plan is for discharge. Pt received Ativan 2mg po and nicotine gum while in ED under my care. Came in initially with Ativan OD. Pt ambulatory at [facility] in no distress. B Bogdan CHOUDHURY 0913am. - Consult/PCP Time Called: 22:39
--- NOTE | 2017-03-17 14:32 | ED ---
Lanie Lofton Rebecca, scribed for Tj Lombardi MD on 03/14/17 at 1547 . Progress - Progress Note Progress Note: Evaluated the patient who is being seen by MANNY Guerrero. Her respirations are somewhat shallow and O2 sat is about 94%. She is talking. Recommended CXR incase she aspirated. No known Hx of asthma. Course/Dx - Diagnoses Provider Diagnoses: Overdose, Intentional self-harm by razor blade The documentation as recorded by the gaibLanie lewis Rebecca accurately reflects the service I personally performed and the decisions made by Maria C youngblood Jerry, MD.
== END 2017-03-15 09:09 ==
LOC: ED 14:10
DX: T42.4X2A Poisoning by benzodiazepines, intentional self-harm, initial encounter (principal); S61.512A Laceration without foreign body of left wrist, initial encounter; Y92.9 Unspecified place or not applicable; R10.9 Unspecified abdominal pain; F17.210 Nicotine dependence, cigarettes, uncomplicated; R53.83 Other fatigue; X78.9XXA Intentional self-harm by unspecified sharp object, initial encounter; Y93.9 Activity, unspecified
CPT/HCPCS: 12002; 36415; 70450; 71020; 80053; 80307; 80320; 80329; 81003; 81015; 84443; 84702; 85025; 87086; 93005; 99283; A9270-GY; G0480

== ENCOUNTER → 2017-03-16 03:02 | Emergency (ER) | payer OTHER ==
[~2017-03-16 03:02] MED LIST changes: -Haloperidol INJ IV/IM* 5 MG/ML AMP IM ONE; -LORazepam INJ* 2 MG/ML 1 ML VIAL IM ONE; +LORazepam TAB(*) 1 MG PO ONE; +Nicotine GUM* 2 MG PO PRN; -Nicotine Inhaler* 10 MG AMP INH ONE; -diPHENhydraMINE IV* 50 MG/ML 1 ml VIAL (BENADRYL) IM ONE
--- NOTE | 2017-03-16 03:49 | ED ---
Carin Lofton Alfonso, scribed for Corey Boo MD on 03/16/17 at 0327 . Altered Mental Status - HPI Summary HPI Summary: This patient is a 26 year old F BIBA with police 941 to [facility] with a chief complaint of SI since earlier today. She states I need help and want halfway admission. Pt rates the pain 3/10 in severity. Symptoms aggravated by recent stress and alleviated by nothing. Pt reports hearing voices, frustration, and that she cant think straight. PMHx of suicidal behavior, PTSD, and borderline personality disorder. Patient cleared for MHE at 0315. - History Of Current Complaint Chief Complaint: EDMentalHealth Stated Complaint: 941 Time Seen by Provider: 03/16/17 03:09 Hx Obtained From: Patient Timing: Constant Severity Initially: Moderate Severity Currently: Moderate Aggravating Factor(s): Other - Recent stress Alleviating Factor(s): Nothing Associated Signs And Symptoms: Positive: Negative Has Suicidal: Thoughts, With A Plan, Demonstrates Gesture, Has Prior Attempt(s) - Allergies/Home Medications Allergies/Adverse Reactions: Allergies Allergy/AdvReac Type Severity Reaction Status Date / Time Penicillin V Allergy Severe Hives Verified 02/10/17 13:41 Latex Allergy Intermediate Rash Verified 02/10/17 13:41 Lactose Intolerance (GI) Allergy Diarrhea Verified 02/10/17 13:41 glue Allergy Rash Uncoded 02/10/17 13:41 steri strips Allergy Rash Uncoded 02/10/17 13:41 PMH/Surg Hx/FS Hx/Imm Hx Endocrine/Hematology History: Reports: Hx Unexplained Bleeding Denies: Hx Anticoagulant Therapy, Hx Blood Disorders, Hx Thyroid Disease, Other Endocrine/Hematological Disorders - borderline diabetic Comment Only: Hx Diabetes - Borderline Cardiovascular History: Denies: Hx Hypertension, Hx Pacemaker/ICD, Other Cardiovascular Problems/ Disorders Respiratory History: Denies: Hx Asthma - patient denied, Hx Chronic Bronchitis, Hx Chronic Obstructive Pulmonary Disease (COPD), Hx Cystic Fibrosis, Hx Lung Cancer, Hx Pleural Effusion, Hx Pneumonia, Hx Pulmonary Edema, Hx Pulmonary Embolism, Hx Seasonal Allergies, Hx Sleep Apnea, Other Respiratory Problems/Disorders GI History: Denies: Hx Ulcer, Other GI Disorders History: Reports: Other Problems/Disorders - Urinary Retention and Herpes Denies: Hx Renal Disease Musculoskeletal History: Denies: Other Musculoskeletal History Sensory History: Reports: Hx Contacts or Glasses Denies: Hx Cataracts, Hx Eye Injury, Hx Eye Prosthesis, Hx Glaucoma, Hx Legally Blind, Hx Macular Degeneration, Hx Deafness, Hx Hearing Aid, Hx Hearing Problem, Other Sensory Impairments Opthamlomology History: Reports: Hx Contacts or Glasses Denies: Hx Cataracts, Hx Eye Injury, Hx Eye Prosthesis, Hx Glaucoma, Hx Legally Blind, Hx Macular Degeneration, Other Sensory Impairments Neurological History: Reports: Hx Developmental Delay, Hx Headaches, Hx Seizures Denies: Hx Dementia, Hx Migraine, Hx Nerve Disease, Hx Spinal Cord Injury, Hx Transient Ischemic Attacks (TIA), Other Neuro Impairments/Disorders Psychiatric History: Reports: Hx Anxiety, Hx Attention Deficit Hyperactivity Disorder, Hx Eating Disorder, Hx Depression, Hx Panic Disorder, Hx Post Traumatic Stress Disorder, Hx Inpatient Treatment, Hx Community Mental Health Tx , Hx Bipolar Disorder, Hx Suicide Attempt, Hx of Violent Episodes Against Others - SEE VIOLENCE HX, Hx Substance Abuse - OD on ativan 03/14/2017, Other Psychiatric Issues/Disorders Comment Only: Hx Schizophrenia - Schizoaffective Disorder - Cancer History Hx Chemotherapy: No Hx Radiation Therapy: No Hx Palliative Cancer Treatment: No - Immunization History Date of Tetanus Vaccine: UTD Date of Influenza Vaccine: Unk Infectious Disease History: No Infectious Disease History: 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 - Social History Alcohol Use: Occasionally Alcohol Amount: "drank beer awhile ago" Hx Substance Use: No Substance Use Type: Reports: Sedatives Substance Use Comment - Amount & Last Used: denies substance abuse Hx Tobacco Use: Yes Smoking Status (MU): Current Every Day Smoker Type: Cigarettes Amount Used/How Often: 4 cigarettes per day Length of Time of Smoking/Using Tobacco: 3 years Have You Smoked in the Last Year: Yes Review of Systems Negative: Fever Neurological: Other - Positive SI, hearing voices, frustration, and that she cant think straight. All Other Systems Reviewed And Are Negative: Yes Physical Exam Triage Information Reviewed: Yes Vital Signs On Initial Exam: Initial Vitals Temp Pulse Resp BP Pulse Ox 99.1 F 109 20 152/98 96 03/16/17 03:10 03/16/17 03:10 03/16/17 03:10 03/16/17 03:10 03/16/17 03:10 Vital Signs Reviewed: Yes Appearance: Positive: Well-Appearing, No Pain Distress Skin: Positive: Other - mult suplacs both extr, rt arm 2 lacs slightly open, bandaged with steri strips Eyes: Positive: OKSANA ENT: Positive: Hearing grossly normal Neck: Positive: Supple Respiratory/Lung Sounds: Positive: Breath Sounds Present Cardiovascular: Positive: RRR Abdomen Description: Positive: Nontender, Soft Musculoskeletal: Positive: Strength/ROM Intact Diagnostics - Vital Signs Vital Signs Temp Pulse Resp BP Pulse Ox 03/16/17 03:10 99.1 F 109 20 152/98 96 - Laboratory Result Diagrams: 03/16/17 03:38 03/16/17 03:38 Lab Statement: Any lab studies that have been ordered have been reviewed, and results considered in the medical decision making process. Re-Evaluation - Re-Evaluation First Eval Change: Unchanged - pt requirs halfway hospitalization, awaiting psych eval Altered Mental Statu Course/Dx - Course Assessment/Plan: 26 year old F BIBA with police 941 to [facility] with a chief complaint of SI since earlier today. She states I need help and want exterminator admission. Pt reports hearing voices, frustration, and that she cant think straight. PMHx of suicidal behavior, PTSD, and borderline personality disorder. Patient cleared for MHE at 0315. - Diagnoses Discharge Diagnoses: Suicidal behavior Discharge - Discharge Plan Condition: Fair Disposition: OTHER Discharge Disposition Comment: awaiting psych eval Referrals: Don Love, ORDER ENTRY SPECIALIST [Primary Care Provider] - The documentation as recorded by the Carin haskins Alfonso accurately reflects the service I personally performed and the decisions made by me, Corey Boo MD.
[2017-03-16 05:18] LABS: Hematocrit 39 % (35-47); Hemoglobin 12.8 g/dl (12.0-16.0); Mean Corpuscular HGB Conc 33 g/dl (31-36); Mean Corpuscular Hemoglobin 30 pg (27-31); Mean Corpuscular Volume 89 fL (80-97); Mean Platelet Volume 9 um3 (7.4-10.4); Red Blood Count 4.34 10^6/ul (4.0-5.4); Red Cell Distribution Width 14 % (10.5-15); White Blood Count 13.1 10^3/ul (3.5-10.8)
[2017-03-16 05:29] LABS: ALT 19 U/L (7-52); AST 15 U/L (13-39); Acetaminophen < 15 mcg/mL; Albumin 4.1 g/dL (3.2-5.2); Alcohol < 10 mg/dL (<10); Alkaline Phosphatase 61 U/L (34-104); Anion Gap 9 mmol/L (2-11); BUN/Creatinine Ratio 17.8 (8-20); Blood Urea Nitrogen 13 mg/dL (6-24); CO2 Carbon Dioxide 22 mmol/L (22-32); Calcium 9.2 mg/dL (8.6-10.3); Chloride 105 mmol/L (101-111); EGFR African American 122.1 (>60); EGFR Non-African American 94.9 (>60); Globulin 3.7 g/dL (2-4); Glucose 106 mg/dL (70-100); Potassium 3.5 mmol/L (3.5-5.0); Salicylate < 2.50 mg/dL (<30); Sodium 136 mmol/L (133-145); Total Protein 7.8 g/dL (6.4-8.9)
[2017-03-16 05:40] LABS: TSH (Thyroid Stimulating Horm) 4.85 mcIU/mL (0.34-5.60)
[2017-03-16 13:45] VITALS: BP 118/72
== END ==
LOC: ED 03:02
DX: R45.851 Suicidal ideations (principal); F17.210 Nicotine dependence, cigarettes, uncomplicated
CPT/HCPCS: 36415; 80053; 80320; 80329; 84443; 85025; 99283; A9270-GY; G0480

== ENCOUNTER 2017-03-18 13:28 | Emergency (ER) | payer MEDICAID, OTHER ==
[2017-03-18] MEDS ORDERED: Haloperidol TAB* 5 MG PO ONE (14:01)
[2017-03-18] MEDS ORDERED: LORazepam TAB(*) 1 MG PO ONE (14:02)
[2017-03-18] MEDS ORDERED: diPHENhydraMINE PO* 50 MG PO ONE (14:02)
--- NOTE | 2017-03-18 14:23 | ED ---
Psychiatric Complaint - HPI Summary HPI Summary: Patient presents with CC of voices telling her to kill herself. Again, she is requesting for inpatient care. She has been seen several times for same issue. She has self harm behavior with several lacerations to the right forearm. She notes to depression, bipolar, auditory hallucinations and anxiety. She is requesting B-52 on arrival to the ED. She will be seen by our mental health staff. She denies any pain, KRISHNAN, or other symptoms. Denies drug use, ETOH use or smoking recently. - History Of Current Complaint Chief Complaint: [facility]entalHealth Time Seen by Provider: 03/18/17 13:37 Hx Obtained From: Patient Hx Last Menstrual Period: MIRENA IUD Onset/Duration: Gradual Onset Timing: Constant Severity Initially: Severe Severity Currently: Severe Character: Depressed, Anxious, Angry, Frustrated Aggravating Factor(s): Recent Stress, Therapy Non-compliance Alleviating Factor(s): Medication Associated Signs And Symptoms: Positive: Confused, Hallucinating, Paranoid Behavior Related History: Positive For: Prior Psychiatric Issues Has Suicidal: Reports: Thoughts - Risk Factor(s) Completed Suicide Risk Factors: White [place] - Allergies/Home Medications Allergies/Adverse Reactions: Allergies Allergy/AdvReac Type Severity Reaction Status Date / Time Penicillin V Allergy Severe Hives Verified 02/10/17 13:41 Latex Allergy Intermediate Rash Verified 02/10/17 13:41 Lactose Intolerance (GI) Allergy Diarrhea Verified 02/10/17 13:41 glue Allergy Rash Uncoded 02/10/17 13:41 steri strips Allergy Rash Uncoded 02/10/17 13:41 PMH/Surg Hx/FS Hx/Imm Hx Previously Healthy: Yes Endocrine/Hematology History: Reports: Hx Unexplained Bleeding Denies: Hx Anticoagulant Therapy, Hx Blood Disorders, Hx Thyroid Disease, Other Endocrine/Hematological Disorders - borderline diabetic Comment Only: Hx Diabetes - Borderline Cardiovascular History: Denies: Hx Hypertension, Hx Pacemaker/ICD, Other Cardiovascular Problems/ Disorders Respiratory History: Denies: Hx Asthma - patient denied, Hx Chronic Bronchitis, Hx Chronic Obstructive Pulmonary Disease (COPD), Hx Cystic Fibrosis, Hx Lung Cancer, Hx Pleural Effusion, Hx Pneumonia, Hx Pulmonary Edema, Hx Pulmonary Embolism, Hx Seasonal Allergies, Hx Sleep Apnea, Other Respiratory Problems/Disorders GI History: Denies: Hx Ulcer, Other GI Disorders History: Reports: Other Problems/Disorders - Urinary Retention and Herpes Denies: Hx Renal Disease Musculoskeletal History: Denies: Other Musculoskeletal History Sensory History: Reports: Hx Contacts or Glasses Denies: Hx Cataracts, Hx Eye Injury, Hx Eye Prosthesis, Hx Glaucoma, Hx Legally Blind, Hx Macular Degeneration, Hx Deafness, Hx Hearing Aid, Hx Hearing Problem, Other Sensory Impairments Opthamlomology History: Reports: Hx Contacts or Glasses Denies: Hx Cataracts, Hx Eye Injury, Hx Eye Prosthesis, Hx Glaucoma, Hx Legally Blind, Hx Macular Degeneration, Other Sensory Impairments Neurological History: Reports: Hx Developmental Delay, Hx Headaches, Hx Seizures Denies: Hx Dementia, Hx Migraine, Hx Nerve Disease, Hx Spinal Cord Injury, Hx Transient Ischemic Attacks (TIA), Other Neuro Impairments/Disorders Psychiatric History: Reports: Hx Anxiety, Hx Attention Deficit Hyperactivity Disorder, Hx Eating Disorder, Hx Depression, Hx Panic Disorder, Hx Post Traumatic Stress Disorder, Hx Inpatient Treatment, Hx Community Mental Health Tx , Hx Bipolar Disorder, Hx Suicide Attempt, Hx of Violent Episodes Against Others - SEE VIOLENCE HX, Hx Substance Abuse - OD on ativan 03/14/2017, Other Psychiatric Issues/Disorders Comment Only: Hx Schizophrenia - Schizoaffective Disorder - Cancer History Hx Chemotherapy: No Hx Radiation Therapy: No Hx Palliative Cancer Treatment: No - Immunization History Date of Tetanus Vaccine: UTD Date of Influenza Vaccine: Unk Hx Pertussis Vaccination: No Immunizations Up to Date: Unable to Obtain/Confirm Infectious Disease History: No Infectious Disease History: 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 - Social History Occupation: Unemployed Lives: With Family Alcohol Use: Occasionally Alcohol Amount: "drank beer awhile ago" Hx Substance Use: No Substance Use Type: Reports: Sedatives Substance Use Comment - Amount & Last Used: denies substance abuse Hx Tobacco Use: Yes Smoking Status (MU): Current Every Day Smoker Type: Cigarettes Amount Used/How Often: 4 cigarettes per day Length of Time of Smoking/Using Tobacco: 3 years Have You Smoked in the Last Year: Yes Review of Systems Constitutional: Negative Eyes: Negative Cardiovascular: Negative Positive: no symptoms reported, see HPI Musculoskeletal: Negative Positive: Other - multiple lacerations to the right forearm with multiple healing lacerations to the left forearm with steri strips applied from previous visit Neurological: Negative Positive: Anxious, Depressed All Other Systems Reviewed And Are Negative: Yes Physical Exam Triage Information Reviewed: Yes Vital Signs On Initial Exam: Initial Vitals Temp Pulse Resp BP Pulse Ox 98.2 F 109 20 135/80 98 03/18/17 13:31 03/18/17 13:31 03/18/17 13:31 03/18/17 13:31 03/18/17 13:31 Vital Signs Reviewed: Yes Appearance: Positive: Well-Appearing, Well-Nourished Skin: Positive: Warm, Skin Color Reflects Adequate Perfusion Head/Face: Positive: Normal Head/Face Inspection Eyes: Positive: EOMI, [place] Neck: Positive: Supple, No Lymphadenopathy Respiratory/Lung Sounds: Positive: Clear to Auscultation, Breath Sounds Present Cardiovascular: Positive: Normal, RRR, Pulses are Symmetrical in both Upper and Lower Extremities Musculoskeletal: Positive: Normal, Strength/ROM Intact Neurological: Positive: Sensory/Motor Intact, Alert, Oriented to Person Place, Time, Speech Normal Psychiatric: Positive: Anxious, Depressed, Patient Uncooperative for Exam AVPU Assessment: Alert - [place] Coma Scale Best Eye Response: 4 - Spontaneous Best Motor Response: 6 - Obeys Commands Best Verbal Response: 5 - Oriented Coma Scale Total: 15 Diagnostics - Vital Signs Vital Signs Temp Pulse Resp BP Pulse Ox 03/18/17 14:11 18 03/18/17 13:51 0 F 0 0 0/0 0 03/18/17 13:31 98.2 F 109 20 135/80 98 - Laboratory Result Diagrams: 03/18/17 15:06 03/18/17 15:06 Lab Statement: Any lab studies that have been ordered have been reviewed, and results considered in the medical decision making process. Course/Dx - Course Course Of Treatment: multiple lacerations to the right forearm with multiple healing lacerations to the left forearm with steri strips applied from previous visit. depression and auditory hallucinations with encouragment to committ suicide. She is given a B-52 orally upon request at arrival. - Differential Dx/Clinical Impression Differential Diagnosis/HQI/PQRI: Positive: Drug Overdose/Unintentional, Suicide Attempt, Suicidal Ideation, Suicidal Gesture Provider Diagnosis: Suicidal ideation, Hallucination Discharge - Discharge Plan Condition: Stable Disposition: HOME Referrals: [facility] [Outside] - As Soon As Possible Don Love NP [Primary Care Provider] -
[2017-03-18 15:09] VITALS: BP 134/89
[2017-03-18 15:19] LABS: Hematocrit 41 % (35-47); Hemoglobin 13.4 g/dl (12.0-16.0); Mean Corpuscular HGB Conc 33 g/dl (31-36); Mean Corpuscular Hemoglobin 29 pg (27-31); Mean Corpuscular Volume 88 fL (80-97); Mean Platelet Volume 8 um3 (7.4-10.4); Red Blood Count 4.62 10^6/ul (4.0-5.4); Red Cell Distribution Width 14 % (10.5-15); White Blood Count 12.5 10^3/ul (3.5-10.8)
[2017-03-18 15:35] LABS: ALT 18 U/L (7-52); AST 14 U/L (13-39); Albumin 4.3 g/dL (3.2-5.2); Alkaline Phosphatase 67 U/L (34-104); Anion Gap 6 mmol/L (2-11); BUN/Creatinine Ratio 9.5 (8-20); Blood Urea Nitrogen 8 mg/dL (6-24); CO2 Carbon Dioxide 27 mmol/L (22-32); Calcium 9.3 mg/dL (8.6-10.3); Chloride 104 mmol/L (101-111); EGFR African American 103.8 (>60); EGFR Non-African American 80.7 (>60); Globulin 3.7 g/dL (2-4); Glucose 85 mg/dL (70-100); Potassium 4.1 mmol/L (3.5-5.0); Sodium 137 mmol/L (133-145)
[2017-03-18 15:54] LABS: Acetaminophen < 15 mcg/mL; Alcohol < 10 mg/dL (<10); Salicylate < 2.50 mg/dL (<30)
[2017-03-18 16:03] LABS: TSH (Thyroid Stimulating Horm) 0.93 mcIU/mL (0.34-5.60)
[2017-03-18] MEDS ORDERED: Nicotine GUM* 2 MG PO PRN (17:20)
[2017-03-18] MEDS ORDERED: Nicotine GUM* 2 MG ONE (17:26)
== END 2017-03-18 18:25 | disposition home or self-care (01) ==
LOC: ED 13:28
DX: R45.851 Suicidal ideations (principal); R44.3 Hallucinations, unspecified; S51.811A Laceration without foreign body of right forearm, initial encounter; X78.9XXA Intentional self-harm by unspecified sharp object, initial encounter; S51.812D Laceration without foreign body of left forearm, subsequent encounter; X78.9XXD Intentional self-harm by unspecified sharp object, subsequent encounter; Y93.9 Activity, unspecified; Y92.9 Unspecified place or not applicable; F32.9 Major depressive disorder, single episode, unspecified; Z91.040 Latex allergy status; Z88.0 Allergy status to penicillin; Z91.048 Other nonmedicinal substance allergy status; F17.210 Nicotine dependence, cigarettes, uncomplicated
CPT/HCPCS: 36415; 80053; 80320; 80329; 84443; 85025; 99285; A9270-GY; G0480

== ENCOUNTER 2017-03-19 10:51 | Inpatient (IN) | payer MEDICAID, OTHER ==
[2017-03-19] MEDS ORDERED: LORazepam TAB(*) 1 MG PO ONE (11:29)
[2017-03-19] MEDS: Nicotine GUM* 2 MG PO PRN ×5 (12:45→22:11)
[2017-03-19 13:02] LABS: Urine Bacteria 1+ (Absent); Urine Bilirubin Negative (Negative); Urine Glucose Negative (Negative); Urine Nitrite Negative (Negative)
[2017-03-19] MEDS ORDERED: OLANzapine TAB* 5 MG PO ONE (13:48)
[2017-03-19 14:36] LABS: Hematocrit 41 % (35-47); Hemoglobin 13.9 g/dl (12.0-16.0); Mean Corpuscular HGB Conc 34 g/dl (31-36); Mean Corpuscular Hemoglobin 30 pg (27-31); Mean Corpuscular Volume 89 fL (80-97); Mean Platelet Volume 9 um3 (7.4-10.4); Red Blood Count 4.64 10^6/ul (4.0-5.4); Red Cell Distribution Width 14 % (10.5-15); White Blood Count 8.4 10^3/ul (3.5-10.8)
[2017-03-19 14:48] LABS: ALT 21 U/L (7-52); AST 18 U/L (13-39); Acetaminophen < 15 mcg/mL; Albumin 4.5 g/dL (3.2-5.2); Alcohol < 10 mg/dL (<10); Alkaline Phosphatase 67 U/L (34-104); Anion Gap 7 mmol/L (2-11); BUN/Creatinine Ratio 9.9 (8-20); Blood Urea Nitrogen 8 mg/dL (6-24); CO2 Carbon Dioxide 26 mmol/L (22-32); Calcium 9.6 mg/dL (8.6-10.3); Chloride 104 mmol/L (101-111); EGFR African American 108.3 (>60); EGFR Non-African American 84.2 (>60); Globulin 3.8 g/dL (2-4); Glucose 83 mg/dL (70-100); Potassium 3.8 mmol/L (3.5-5.0); Salicylate < 2.50 mg/dL (<30); Sodium 137 mmol/L (133-145); Total Protein 8.3 g/dL (6.4-8.9)
[2017-03-19 14:51] LABS: Benzodiazepine Urine Screen Presumptive Positive (None Detect)
[2017-03-19 14:59] LABS: TSH (Thyroid Stimulating Horm) 1.65 mcIU/mL (0.34-5.60)
[2017-03-19] MEDS ORDERED: Acetaminophen TAB* 325 MG PO PRN (17:25)
[2017-03-19] MEDS ORDERED: Al Hydrox/Mg Hydrox/Simet LIQ* 30 ML UDC PO PRN (17:25)
[2017-03-19] MEDS ORDERED: Mouth Piece, Nicotine* 1 EACH CARTRIDGE ONE (19:11)
[2017-03-19] MEDS ORDERED: Nicotine Inhaler* 10 MG AMP ONE (19:13)
[2017-03-19] MEDS ORDERED: chlorproMAZINE TAB* 100 MG ONE (19:27)
[2017-03-19] MEDS ORDERED: chlorproMAZINE INJ* 25 MG/ML 2 ML (50 MG) IM PRN (19:47)
[2017-03-19] MEDS ORDERED: chlorproMAZINE TAB* 100 MG PO PRN (19:47)
[2017-03-19] MEDS ORDERED: Mouth Piece, Nicotine* 1 EACH CARTRIDGE INH ONE (20:00)
[2017-03-20] MEDS: Nicotine GUM* 2 MG PO PRN ×8 (03:37→21:31)
[2017-03-20] MEDS: Nicotine Inhaler* 10 MG AMP Q2H PRN CRAVING INH ×4 (03:37→18:12)
[2017-03-20] MEDS: Vitamin THERAPEUTIC TAB PO SCH (08:21)
[2017-03-20] MEDS ORDERED: FLUPHENAZINE PO SCH (13:00)
[2017-03-20] MEDS: FLUoxetine CAP* 20 MG PO SCH (13:32)
[2017-03-20] MEDS: FLUPHENAZINE PO SCH ×2 (13:33→21:33)
[2017-03-20] MEDS: Benztropine TAB* 1 MG PO SCH ×2 (14:05→23:30)
[2017-03-20] MEDS: chlorproMAZINE TAB* 100 MG PO PRN (14:54)
[2017-03-20] MEDS ORDERED: Benztropine INJ* 1 MG/ML 2 ML AMP IM PRN (15:39)
[2017-03-20] MEDS ORDERED: Benztropine INJ* 1 MG/ML 2 ML AMP ONE (15:40)
--- NOTE | 2017-03-20 16:57 | HP ---
HISTORY AND PHYSICAL: DATE OF ADMISSION: 03/19/17 IDENTIFYING DATA: Ms. Pérez is a 26-year-old mentally disabled female with history of multiple previous emergency room visits and inpatient psychiatric hospitalization, severe borderline personality disorder, borderline intellectual functioning, chronic self injury and suicidal behavior and aggression along with atypical perceptual disturbances, history of seizure disorder, and dissociative symptoms. She presented to the emergency room of this hospital initially on 03/18/17, with multiple self-inflicted laceration on her forearm. She related that she felt suicidal and she was upset because her ex-girlfriend had sent her a text on Sunday to tell her to "go kill herself," which highly upset the patient. The patient on Sunday night was able to contract for safety and was discharged home with followup at [facility] yesterday. The patient did keep her appointment yesterday. Ameriac Burk in Emergency maintains that she had thoughts of taking an overdose of her prescribed medication, which led to [facility] referring her to the emergency room of this hospital and this time she was admitted on emergency status. CHIEF COMPLAINT: "I've reached rock bottom, I need to go somewhere long-term to get help!" HISTORY OF PRESENT ILLNESS: The patient reports that she has been increasingly more depressed in the past couple of months. She described daily sad or irritable mood, decreased interest, poor appetite, difficulty initiating sleep at bed-time, recurrent thoughts of suicide, self cutting behavior, and feelings of hopelessness, helplessness, and worthlessness. Additionally, she described high anxiety in social setting, excessive worrying, irritability, and muscle tension. She also reports hearing a male voice making derogatory comments about her and she endorses paranoid ideation, a sense that she is being watched. She denies recent substance abuse. In terms of her stressors, she endorses a sense that she has been constantly rejected by state hospitals and residential setting. She has a periodically strained relationship with her biological mother. She is still struggling with the breakup of her relationship with her girlfriend about 2 months ago. She feels alone and socially isolated. PAST PSYCHIATRIC HISTORY: The patient has had numerous inpatient psychiatric admissions since her teenage years including at this hospital. Her last admission was here from 02/09/17 to 07/05/17. She has outpatient care at [facility] with community nurse, Hope Rivera, and since she is not on any medication, she reports that she has not seen Dr. Newby for several months. Over the years, she has been diagnosed with borderline personality disorder, substance related disorder, dissociative disorder, psychotic disorder, posttraumatic stress disorder, and borderline intellectual functioning. Last known medication regimen consisted Topamax 50 mg twice daily and Thorazine 25 mg q. 6 hours p.r.n. as needed. She has history of nonadherence to taking the prescribed medication. MEDICATION HISTORY: Has had multiple previous trail of medication including trazodone, quetiapine, mirtazapine, gabapentin, Campral, clonidine, lithium, Thorazine, Depakote, citalopram, naltrexone. She has a history of poor adherence with outpatient treatment and taking prescribed medications and unstable clinical alliances. PAST MEDICAL HISTORY: Remarkable for obesity, seizure disorder, urinary retention, herpes zoster, and asthma. SUBSTANCE ABUSE HISTORY: She denies any recent substance abuse, but had in the past admitted to the use of marijuana, cocaine, and alcohol. DRUG ALLERGIES: She is allergic to PENICILLIN. FAMILY HISTORY: Half siblings have history of learning and conduct disorder. SOCIAL HISTORY: She was adopted and raised with half and adopted siblings. Did not graduate from high school due to frequent crisis and hospitalization. Was in a long-term relationship with a girlfriend who broke up with her about 2 months ago and is reportedly dating someone else. The patient identified as being lesbian. She lives with her mother and 3 of her siblings. Relationship with relatives has been much improved in recent months. REVIEW OF SYSTEMS: Urinary retention and multiple scarring and self inflicted lacerations on both her arm and forearms. PHYSICAL EXAMINATION The patient declines citing having lack of need. MENTAL STATUS EXAMINATION: Finds an obese 26-year-old white female with short hair, dyed blonde with some pink highlights. She wears glasses. She presents as somewhat regressed and child like. She exhibit normal psychomotor activities. No abnormal movement observed. Speech is spontaneous. Normal rate , rhythm, and volume. Her affect is irritable. Mood is dysphoric. Thoughts linear and goal directed. No evidence of formal thought disorder. No overt delusions. She does endorse experience of hearing a male voice making derogatory comments about her and feeling paranoid. She endorses being suicidal with a plan to overdose on prescribed medication if discharged from the hospital. She denies urges to self mutilate. Her insight and judgment are limited. Her impulse control is questionable. She is alert. She is oriented to time, place, and person. Attention, memory, and concentration are all fair. Fund of knowledge is adequate and intelligence is estimated to be in normal average range. CLINICAL SUMMARY: A 26-year-old female with history of self injury, previous suicide attempt, previous diagnoses of borderline personality disorder, intellectual disability, who presented twice in a 24-hour period; the first time after cutting herself, because she was distressed about a text that her an ex- girlfriend had sent her, and the the second time on the recommendation of [facility] where she was seen in the emergency and disclosed feeling suicidal with a plan to overdose on a prescribed medication. Medical history is remarkable for urinary retention, obesity, seizure disorder. She denies recent substance abuse. There is family history of learning and conduct disorder in relatives. She describes stressors of feeling rejected by residential and hospital facilities, breakup of a relationship with girlfriend, and feeling socially isolated. DIAGNOSTIC IMPRESSION: 1. Major depressive disorder, recurrent, moderate, with psychotic features. 2. Posttraumatic stress disorder. 3. Borderline personality disorder. 4. Borderline intellectual functioning. TREATMENT PLAN: Admit to mental health unit, 15-minute checks, full code status. Legal status is emergency. Initiate comprehensive milieu, individual, and group psychotherapeutic support. The patient will be reminded of the behavior modification plan that was developed on previous admission and medication management that will involve a trial of Prolixin, which the patient relates having had good response to and antidepressant. Discharge planning will involve coordination of her aftercare with her outpatient psychiatric providers. [id number]/[facility] #: [id number] NEIL
[2017-03-21] MEDS ORDERED: Mouth Piece, Nicotine* 1 EACH CARTRIDGE ONE (06:05)
[2017-03-21] MEDS: Nicotine Inhaler* 10 MG AMP Q2H PRN CRAVING INH ×5 (06:09→20:10)
[2017-03-21] MEDS: Nicotine GUM* 2 MG PO PRN ×8 (06:09→20:12)
[2017-03-21] MEDS: chlorproMAZINE TAB* 100 MG PO PRN ×3 (06:09→20:09)
[2017-03-21] MEDS: FLUPHENAZINE PO SCH (06:30)
[2017-03-21] MEDS: FLUoxetine CAP* 20 MG PO SCH (08:04)
[2017-03-21] MEDS: Vitamin THERAPEUTIC TAB PO SCH (08:04)
[2017-03-21] MEDS: Benztropine TAB* 1 MG PO SCH (08:04)
--- NOTE | 2017-03-21 16:53 | PN ---
Subjective - Subjective Subjective: Marly endorses reduced distress level but still "feeling depressed and needing to go nursing home." She denies suicidal ideation or urges for sib and she contracts for safety. She had complained of "stiff jaw" after first dose of liquid Fluphenazine yesterday (that she had reported a history of good response to in past). We decided to discontinue it and the cogentin and to instead start a trial of Zyprexa. Per staff, she has been adherent to B-mod. Objective - Appearance Appearance: Obese Dysmorphic Features: No Hygiene: Normal Grooming: Well Kept - Behavior Psychomotor Activities: Normal Exhibits Abnormal Movement: No - Attitude and Relatedness Attitude and Relatedness: Needy Eye Contact: Fair - Speech Quality: Unpressured Latencies: Normal Quantity: Appropriate - Mood Patient's Decription of Mood: "Sad" - Affect Observed Affect: Constricted Affect Consistent with: Dysphoria - Thought Process Patient's Thought Process: Impoverished Thought Content: No Passive Wish, No Suicidal Planning, No Homicidal Ideation, No Paranoid Ideation - Sensorium Experiencing Hallucinations: No, Sensorium is Clear - Level of Consciousness Level of Consciousness: Alert Orientation: Yes Intact - Impulse Control Impulse Control: Intact - Insight and Judgement Insight and Judgement: Poor - Group Participation Particating in Group Activities: Yes - Medication Management Medication Management Adherence: Yes Assessment - Assessment Merits Inpatient Hospitalization: Consolidate Improvements, For Discharge Planning Inpatient DSM-IV Dx: 1. Major depressive disorder, recurrent, moderate, with psychotic features. 2. Posttraumatic stress disorder. 3. Borderline personality disorder. 4. Borderline intellectual functioning. Clinical Impression: CLINICAL SUMMARY: A 26-year-old female with history of self injury, previous suicide attempts, previous diagnoses of borderline personality disorder, intellectual disability, who presented twice in a 24-hour period; the first time after cutting herself, because she was distressed about a text that her an ex- girlfriend had sent her, and the the second time on the recommendation of [facility] where she was seen in emergency and disclosed feeling suicidal with a plan to overdose on a prescribed medications. Medical history is remarkable for urinary retention, obesity, seizure disorder. She denies recent substance abuse. There is family history of learning and conduct disorders in relatives. She describes stressors of feeling rejected by residential and hospital facilities, breakup of a relationship with girlfriend, and feeling socially isolated. Adjusting well to this setting, in relative good behavioral control, safe on checks, denying SI/HI or urges for sib. Med management with new trial of Fluoxetine and Olanzapine. She merits continued inpatient admission for stabilization. Plan - Plan Treatment Plan: Name: MARLY WILKINSON Birthdate: 1990 [id number] Medications: Current Medications Acetaminophen (Tylenol Tab*) 650 mg PO Q4H PRN PRN Reason: for pain; or Temp >101 F Al Hydrox/Mg Hydrox/Simethicone (Maalox Plus*) 30 ml PO Q4H PRN PRN Reason: INDIGESTION Chlorpromazine HCl (Thorazine Tab*) 100 mg PO Q6H PRN PRN Reason: AGITATION Last Admin: 03/21/17 14:13 Dose: 100 mg Fluoxetine HCl (Prozac Cap*) 20 mg PO DAILY KEVIN Last Admin: 03/21/17 08:04 Dose: 20 mg Multivitamins (Theragran Tab*) 1 tab PO DAILY KEVIN Last Admin: 03/21/17 08:04 Dose: Not Given Nicotine (Nicotine Inhaler*) 10 mg INH Q2H PRN PRN Reason: CRAVING Last Admin: 03/21/17 10:50 Dose: 10 mg Nicotine Polacrilex (Nicotine Gum*) 2 mg PO Q2H PRN PRN Reason: CRAVING Last Admin: 03/21/17 16:37 Dose: 2 mg Nicotine Polacrilex (Nicotine Gum*) 4 mg PO Q2H PRN PRN Reason: CRAVING Olanzapine (Zyprexa Tab*) 10 mg PO DAILY KEVIN - Discharge Plan Discharge Plan: Consider Longer Term Tx Outpatient Program: [facility]
[2017-03-21] MEDS: OLANzapine TAB* 10 MG PO SCH (20:09)
[2017-03-22] MEDS: Nicotine GUM* 2 MG PO PRN ×6 (05:46→22:38)
[2017-03-22] MEDS: Nicotine Inhaler* 10 MG AMP Q2H PRN CRAVING INH ×4 (05:57→20:16)
[2017-03-22] MEDS: chlorproMAZINE TAB* 100 MG PO PRN ×2 (07:19→20:26)
[2017-03-22] MEDS: OLANzapine TAB* 10 MG PO SCH (08:07)
[2017-03-22] MEDS: FLUoxetine CAP* 20 MG PO SCH (08:07)
[2017-03-22] MEDS: Vitamin THERAPEUTIC TAB PO SCH (08:15)
[2017-03-22] MEDS ORDERED: OLANzapine TAB* 10 MG PO SCH (09:00)
--- NOTE | 2017-03-22 12:52 | PN ---
Subjective - Subjective Subjective: Sukhdeep endorses sad mood, passive wish and urges for sib but she contracts for safety. She reports having been compliant with prescribed meds. She feels yesterday meeting of providers was positive in the she was heard and she has hope of [facility] facilities. She denies sides effects from prescribed Olanzapine and Fluoxetine, she agrees to not used Thorazine "to numb uncomfortable feelings" and to instead talk to her 1:1. Per staff, she remains adherent to her B-mod. Objective - Appearance Appearance: Obese Dysmorphic Features: No Hygiene: Normal Grooming: Well Kept - Behavior Psychomotor Activities: Normal Exhibits Abnormal Movement: No - Attitude and Relatedness Attitude and Relatedness: Needy Eye Contact: Fair - Speech Quality: Unpressured Latencies: Normal Quantity: Terse - Mood Patient's Decription of Mood: "Sad" - Affect Observed Affect: Constricted Affect Consistent with: Dysphoria - Thought Process Patient's Thought Process: Coherent, Impoverished Thought Content: No Passive Wish, No Suicidal Planning, No Homicidal Ideation, No Paranoid Ideation - Sensorium Experiencing Hallucinations: No, Sensorium is Clear - Level of Consciousness Level of Consciousness: Alert Orientation: Yes Intact - Impulse Control Impulse Control: Intact - Insight and Judgement Insight and Judgement: Poor - Group Participation Particating in Group Activities: Yes - Medication Management Medication Management Adherence: Yes Assessment - Assessment Merits Inpatient Hospitalization: Consolidate Improvements, For Discharge Planning Inpatient DSM-IV Dx: 1. Major depressive disorder, recurrent, moderate, with psychotic features. 2. Posttraumatic stress disorder. 3. Borderline personality disorder. 4. Borderline intellectual functioning. Clinical Impression: CLINICAL SUMMARY: A 26-year-old female with history of self injury, previous suicide attempts, previous diagnoses of borderline personality disorder, intellectual disability, who presented twice in a 24-hour period; the first time after cutting herself, because she was distressed about a text that her an ex- girlfriend had sent her, and the the second time on the recommendation of [facility] where she was seen in emergency and disclosed feeling suicidal with a plan to overdose on a prescribed medications. Medical history is remarkable for urinary retention, obesity, seizure disorder. She denies recent substance abuse. There is family history of learning and conduct disorders in relatives. She describes stressors of feeling rejected by residential and hospital facilities, breakup of a relationship with girlfriend, and feeling socially isolated. Adjusting well to this setting, in relative good behavioral control, safe on checks, denying SI/HI or urges for sib. Tolerating trials of Fluoxetine and Olanzapine. She merits continued inpatient admission for stabilization. Plan - Plan Treatment Plan: Name: FILOMENA WILKINSON Birthdate: 1990 [id number] Medications: Current Medications Acetaminophen (Tylenol Tab*) 650 mg PO Q4H PRN PRN Reason: for pain; or Temp >101 F Al Hydrox/Mg Hydrox/Simethicone (Maalox Plus*) 30 ml PO Q4H PRN PRN Reason: INDIGESTION Chlorpromazine HCl (Thorazine Tab*) 100 mg PO Q6H PRN PRN Reason: AGITATION Last Admin: 03/22/17 07:19 Dose: 100 mg Fluoxetine HCl (Prozac Cap*) 20 mg PO DAILY [facility] Last Admin: 03/22/17 08:07 Dose: 20 mg Multivitamins (Theragran Tab*) 1 tab PO DAILY [facility] Last Admin: 03/22/17 08:15 Dose: Not Given Nicotine (Nicotine Inhaler*) 10 mg INH Q2H PRN PRN Reason: CRAVING Last Admin: 03/22/17 11:29 Dose: 10 mg Nicotine Polacrilex (Nicotine Gum*) 2 mg PO Q2H PRN PRN Reason: CRAVING Last Admin: 03/22/17 10:26 Dose: 2 mg Nicotine Polacrilex (Nicotine Gum*) 4 mg PO Q2H PRN PRN Reason: CRAVING Olanzapine (Zyprexa Tab*) 10 mg PO DAILY [facility] Last Admin: 03/22/17 08:07 Dose: 10 mg - Discharge Plan Discharge Plan: Consider Longer Term Tx Outpatient Program: TBD
[2017-03-23] MEDS: Nicotine GUM* 2 MG PO PRN ×8 (00:40→19:21)
[2017-03-23] MEDS: Nicotine Inhaler* 10 MG AMP Q2H PRN CRAVING INH ×5 (00:40→20:16)
[2017-03-23] MEDS: chlorproMAZINE TAB* 100 MG PO PRN ×2 (01:20→16:21)
[2017-03-23] MEDS: FLUoxetine CAP* 20 MG PO SCH (11:01)
[2017-03-23] MEDS: OLANzapine TAB* 10 MG PO SCH (11:02)
[2017-03-23] MEDS: Vitamin THERAPEUTIC TAB PO SCH (11:03)
--- NOTE | 2017-03-23 16:14 | PN ---
Subjective - Subjective Subjective: Sukhdeep complains of feeling depressed, tired and suicidal, intent or plan and she contracts for safety. She responds to redirections well when I refused to increase dose of Thorazine, encouraged her to not use prn to mask her feelings and to stay out of bed. She remains committed to plan for [facility] and residential facilities. She denies sides effects from prescribed Olanzapine and Fluoxetine. Per staff, she remains adherent to her B-mod. Objective - Appearance Appearance: Obese Dysmorphic Features: No Hygiene: Normal Grooming: Well Kept - Behavior Psychomotor Activities: Normal Exhibits Abnormal Movement: No - Attitude and Relatedness Attitude and Relatedness: Cooperative Eye Contact: Fair - Speech Quality: Unpressured Latencies: Normal Quantity: Terse - Mood Patient's Decription of Mood: "Sad" - Affect Observed Affect: Non-labile Affect Consistent with: Dysphoria - Thought Process Patient's Thought Process: Coherent Thought Content: No Passive Wish, No Suicidal Planning, No Homicidal Ideation, No Paranoid Ideation - Sensorium Experiencing Hallucinations: No, Sensorium is Clear - Level of Consciousness Level of Consciousness: Alert Orientation: Yes Intact - Impulse Control Impulse Control: Intact - Insight and Judgement Insight and Judgement: Poor - Group Participation Particating in Group Activities: Yes - Medication Management Medication Management Adherence: Yes Assessment - Assessment Inpatient DSM-IV Dx: 1. Major depressive disorder, recurrent, moderate, with psychotic features. 2. Posttraumatic stress disorder. 3. Borderline personality disorder. 4. Borderline intellectual functioning. Clinical Impression: CLINICAL SUMMARY: A 26-year-old female with history of self injury, previous suicide attempts, previous diagnoses of borderline personality disorder, intellectual disability, who presented twice in a 24-hour period; the first time after cutting herself, because she was distressed about a text that her an ex- girlfriend had sent her, and the the second time on the recommendation of [facility] where she was seen in emergency and disclosed feeling suicidal with a plan to overdose on a prescribed medications. Medical history is remarkable for urinary retention, obesity, seizure disorder. She denies recent substance abuse. There is family history of learning and conduct disorders in relatives. She describes stressors of feeling rejected by residential and hospital facilities, breakup of a relationship with girlfriend, and feeling socially isolated. Adjusting well to this setting, in relative good behavioral control, safe on checks, denying SI/HI or urges for sib. Tolerating trials of Fluoxetine and Olanzapine. She merits continued inpatient admission for stabilization. Plan - Plan Treatment Plan: Name: FILOMENA WILKINSON Birthdate: 1990 [id number] Medications: Current Medications Acetaminophen (Tylenol Tab*) 650 mg PO Q4H PRN PRN Reason: for pain; or Temp >101 F Al Hydrox/Mg Hydrox/Simethicone (Maalox Plus*) 30 ml PO Q4H PRN PRN Reason: INDIGESTION Chlorpromazine HCl (Thorazine Tab*) 100 mg PO Q6H PRN PRN Reason: AGITATION Last Admin: 03/23/17 01:20 Dose: 100 mg Fluoxetine HCl (Prozac Cap*) 20 mg PO DAILY [facility] Last Admin: 03/23/17 11:01 Dose: 20 mg Multivitamins (Theragran Tab*) 1 tab PO DAILY [facility] Last Admin: 03/23/17 11:03 Dose: Not Given Nicotine (Nicotine Inhaler*) 10 mg INH Q2H PRN PRN Reason: CRAVING Last Admin: 03/23/17 13:11 Dose: 10 mg Nicotine Polacrilex (Nicotine Gum*) 2 mg PO Q2H PRN PRN Reason: CRAVING Last Admin: 03/22/17 22:38 Dose: 2 mg Nicotine Polacrilex (Nicotine Gum*) 4 mg PO Q2H PRN PRN Reason: CRAVING Last Admin: 03/23/17 15:18 Dose: 4 mg Olanzapine (Zyprexa Tab*) 10 mg PO DAILY [facility] Last Admin: 03/23/17 11:02 Dose: 10 mg - Discharge Plan Discharge Plan: Consider Longer Term Tx
[2017-03-24] MEDS: Nicotine GUM* 2 MG PO PRN ×6 (01:12→19:28)
[2017-03-24] MEDS: chlorproMAZINE TAB* 100 MG PO PRN ×3 (01:33→17:31)
[2017-03-24] MEDS: Nicotine Inhaler* 10 MG AMP Q2H PRN CRAVING INH ×4 (07:36→18:56)
[2017-03-24] MEDS: FLUoxetine CAP* 20 MG PO SCH (11:19)
[2017-03-24] MEDS: OLANzapine TAB* 10 MG PO SCH (11:19)
[2017-03-24] MEDS: Vitamin THERAPEUTIC TAB PO SCH ×2 (11:45→11:47)
--- NOTE | 2017-03-24 16:55 | PN ---
Subjective - Subjective Subjective: Sukhdeep complains of continued high level of distress, with depressed mood, high anxiety, fleeting urges for sib but she contracts for safety. She continues to request increased dose of Thorazine, i again encouraged her to not use prn to mask her feelings and to stay out of bed. She remains committed [facility] for [facility]. She denies sides effects from prescribed Olanzapine and Fluoxetine. Per staff, she remains adherent to her B-mod. Objective - Appearance Appearance: Obese Dysmorphic Features: No Hygiene: Normal Grooming: Well Kept - Behavior Psychomotor Activities: Normal Exhibits Abnormal Movement: No - Attitude and Relatedness Attitude and Relatedness: Needy Eye Contact: Fair - Speech Quality: Unpressured Latencies: Normal Quantity: Appropriate - Mood Patient's Decription of Mood: "Anxious" - Affect Observed Affect: Constricted Affect Consistent with: Dysphoria - Thought Process Patient's Thought Process: Coherent, Goal Directed Thought Content: No Passive Wish, No Suicidal Planning, No Homicidal Ideation, No Paranoid Ideation - Sensorium Experiencing Hallucinations: No, Sensorium is Clear - Level of Consciousness Level of Consciousness: Alert Orientation: Yes Intact - Impulse Control Impulse Control: Intact - Insight and Judgement Insight and Judgement: Poor - Group Participation Particating in Group Activities: No - Medication Management Medication Management Adherence: Yes Assessment - Assessment Merits Inpatient Hospitalization: Consolid[facility] Improvements, For Discharge Planning Inpatient DSM-IV Dx: 1. Major depressive disorder, recurrent, moderate, with psychotic features. 2. Posttraumatic stress disorder. 3. Borderline personality disorder. 4. Borderline intellectual functioning. Clinical Impression: CLINICAL SUMMARY: A 26-year-old female with history of self injury, previous suicide attempts, previous diagnoses of borderline personality disorder, intellectual disability, who presented twice in a 24-hour period; the first time after cutting herself, because she was distressed about a text that her an ex- girlfriend had sent her, and the the second time on the recommendation of [facility] where she was seen in emergency and disclosed feeling suicidal with a plan to overdose on a prescribed medications. Medical history is remarkable for urinary retention, obesity, seizure disorder. She denies recent substance abuse. There is family history of learning and conduct disorders in relatives. She describes stressors of feeling rejected by residential and hospital facilities, breakup of a relationship with girlfriend, and feeling socially isolated. In relative good behavioral control, safe on checks, some meed-seeking stances but easily redirected, endorses urges for sib but contract for safety. Tolerating trials of Fluoxetine and Olanzapine. She merits continued inpatient admission for stabilization. Plan - Plan Treatment Plan: Name: FILOMENA WILKINSON Birthdate: 1990 [id number] Medications: Current Medications Acetaminophen (Tylenol Tab*) 650 mg PO Q4H PRN PRN Reason: for pain; or Temp >101 F Al Hydrox/Mg Hydrox/Simethicone (Maalox Plus*) 30 ml PO Q4H PRN PRN Reason: INDIGESTION Chlorpromazine HCl (Thorazine Tab*) 100 mg PO Q6H PRN PRN Reason: AGITATION Last Admin: 03/24/17 11:28 Dose: 100 mg Fluoxetine HCl (Prozac Cap*) 20 mg PO DAILY [facility] Last Admin: 03/24/17 11:19 Dose: 20 mg Multivitamins (Theragran Tab*) 1 tab PO DAILY [facility] Last Admin: 03/24/17 11:47 Dose: Not Given Nicotine (Nicotine Inhaler*) 10 mg INH Q2H PRN PRN Reason: CRAVING Last Admin: 03/24/17 16:00 Dose: 10 mg Nicotine Polacrilex (Nicotine Gum*) 2 mg PO Q2H PRN PRN Reason: CRAVING Last Admin: 03/22/17 22:38 Dose: 2 mg Nicotine Polacrilex (Nicotine Gum*) 4 mg PO Q2H PRN PRN Reason: CRAVING Last Admin: 03/24/17 15:00 Dose: 4 mg Olanzapine (Zyprexa Tab*) 10 mg PO DAILY [facility] Last Admin: 03/24/17 11:19 Dose: 10 mg - Discharge Plan Discharge Plan: Consider Longer Term Tx [facility]
[2017-03-24] MEDS ORDERED: Benzocaine/Menthol LOZ* 1 LOZENGE ONE (17:08)
[2017-03-25] MEDS: Nicotine GUM* 2 MG PO PRN ×7 (07:32→20:46)
[2017-03-25] MEDS: OLANzapine TAB* 10 MG PO SCH (09:22)
[2017-03-25] MEDS: FLUoxetine CAP* 20 MG PO SCH (09:23)
[2017-03-25] MEDS: Vitamin THERAPEUTIC TAB PO SCH (09:23)
[2017-03-25] MEDS: chlorproMAZINE TAB* 100 MG PO PRN ×2 (09:30→20:45)
[2017-03-25] MEDS: Nicotine Inhaler* 10 MG AMP Q2H PRN CRAVING INH ×2 (09:30→16:06)
[2017-03-25] MEDS ORDERED: Docusate CAP* 100 MG PO PRN (09:54)
[2017-03-25] MEDS ORDERED: LORazepam TAB(*) 1 MG PO ONE (15:18)
[2017-03-25] MEDS ORDERED: diPHENhydraMINE PO* 50 MG PO ONE (15:18)
[2017-03-25] MEDS ORDERED: Haloperidol TAB* 5 MG PO ONE (15:19)
[2017-03-25] MEDS: Benzocaine/Menthol LOZ* 1 LOZENGE PO PRN (20:46)
[2017-03-26] MEDS: Benzocaine/Menthol LOZ* 1 LOZENGE PO PRN (05:38)
[2017-03-26] MEDS: Nicotine GUM* 2 MG PO PRN ×8 (05:39→20:21)
[2017-03-26] MEDS: Nicotine Inhaler* 10 MG AMP Q2H PRN CRAVING INH ×4 (07:27→15:55)
[2017-03-26] MEDS: OLANzapine TAB* 10 MG PO SCH (07:28)
[2017-03-26] MEDS: FLUoxetine CAP* 20 MG PO SCH (07:28)
[2017-03-26] MEDS: Vitamin THERAPEUTIC TAB PO SCH ×2 (07:28→07:29)
[2017-03-26] MEDS: chlorproMAZINE TAB* 100 MG PO PRN ×2 (07:28→15:58)
[2017-03-26] MEDS ORDERED: Haloperidol TAB* 5 MG PO ONE (12:41)
[2017-03-26] MEDS ORDERED: diPHENhydraMINE PO* 50 MG PO ONE (12:41)
[2017-03-26] MEDS ORDERED: LORazepam TAB(*) 1 MG PO ONE (12:42)
--- NOTE | 2017-03-26 14:52 | PN ---
Subjective - Subjective Service Type: 43097 Hosp care 15 min low complexity Subjective: Marly remains anxious, but under mostly adequate behavioral control. She did receive a one-time dose of PO haldol, lorazepam and Benadryl for mild agitation this morning, per her request. She is instructed to use other coping skills such as artwork and distraction to minimize use of prn meds. Objective - Appearance Appearance: Obese Dysmorphic Features: No Hygiene: Normal Grooming: Disheveled - Behavior Psychomotor Activities: Normal Exhibits Abnormal Movement: No - Attitude and Relatedness Attitude and Relatedness: Child Like Eye Contact: Fair - Speech Quality: Unpressured Latencies: Normal Quantity: Terse - Mood Patient's Decription of Mood: "Anxious" - Affect Observed Affect: Constricted Affect Consistent with: Dysphoria - Thought Process Patient's Thought Process: Coherent Thought Content: Yes Passive Wish, No Suicidal Planning, No Homicidal Ideation, No Paranoid Ideation - Sensorium Experiencing Hallucinations: No, Sensorium is Clear Type of Hallucinations: Visual: No, Auditory: No, Command: No - Level of Consciousness Level of Consciousness: Alert Orientation: Yes Intact, Yes Orientated to Time, Yes Orientated to Place, Yes Orientated to Person - Impulse Control Impulse Control: Poor - Insight and Judgement Insight and Judgement: Impaired - Group Participation Particating in Group Activities: Yes - Medication Management Medication Management Adherence: Yes Assessment - Assessment Merits Inpatient Hospitalization: For Immediate Safety, For Stabilization Inpatient DSM-IV Dx: 1. Major depressive disorder, recurrent, moderate, with psychotic features. 2. Posttraumatic stress disorder. 3. Borderline personality disorder. 4. Borderline intellectual functioning. Clinical Impression: 26 y.o. single, homosexual white female with a history of affective instability and psychosis who was admitted for SI. Plan - Plan Treatment Plan: Name: MARLY WILKINSON Birthdate: 1990 [id number] Continued Medication Management: Different Medication Medications: Current Medications Acetaminophen (Tylenol Tab*) 650 mg PO Q4H PRN PRN Reason: for pain; or Temp >101 F Al Hydrox/Mg Hydrox/Simethicone (Maalox Plus*) 30 ml PO Q4H PRN PRN Reason: INDIGESTION Chlorpromazine HCl (Thorazine Tab*) 100 mg PO Q6H PRN PRN Reason: AGITATION Last Admin: 03/26/17 07:28 Dose: 100 mg Docusate Sodium (Colace Cap*) 100 mg PO BID PRN PRN Reason: CONSTIPATION Fluoxetine HCl (Prozac Cap*) 20 mg PO DAILY [facility] Last Admin: 03/26/17 07:28 Dose: 20 mg Multivitamins (Theragran Tab*) 1 tab PO DAILY [facility] Last Admin: 03/26/17 07:29 Dose: Not Given Nicotine (Nicotine Inhaler*) 10 mg INH Q2H PRN PRN Reason: CRAVING Last Admin: 03/26/17 13:38 Dose: 10 mg Nicotine Polacrilex (Nicotine Gum*) 2 mg PO Q2H PRN PRN Reason: CRAVING Last Admin: 03/22/17 22:38 Dose: 2 mg Nicotine Polacrilex (Nicotine Gum*) 4 mg PO Q2H PRN PRN Reason: CRAVING Last Admin: 03/26/17 14:28 Dose: 4 mg Olanzapine (Zyprexa Tab*) 10 mg PO DAILY [facility] Last Admin: 03/26/17 07:28 Dose: 10 mg Throat Lozenges (Chloraseptic Ian*) 1 ian PO Q2H PRN PRN Reason: SORE THROAT Last Admin: 03/26/17 05:38 Dose: 1 ian - Discharge Plan Discharge Plan: Consider Longer Term Tx
[2017-03-26] MEDS ORDERED: chlorproMAZINE TAB* 100 MG ONE (19:46)
[2017-03-27] MEDS: Nicotine GUM* 2 MG PO PRN ×7 (03:55→19:00)
[2017-03-27] MEDS: Nicotine Inhaler* 10 MG AMP Q2H PRN CRAVING INH ×5 (03:55→18:23)
[2017-03-27] MEDS: chlorproMAZINE TAB* 100 MG PO PRN ×3 (05:01→17:33)
[2017-03-27 09:06] LABS: HDL Cholesterol 32.8 mg/dL
[2017-03-27] MEDS: OLANzapine TAB* 10 MG PO SCH (10:15)
[2017-03-27] MEDS: FLUoxetine CAP* 20 MG PO SCH (10:15)
[2017-03-27] MEDS: Benzocaine/Menthol LOZ* 1 LOZENGE PO PRN ×2 (10:58→14:03)
[2017-03-27] MEDS: Vitamin THERAPEUTIC TAB PO SCH (11:23)
[2017-03-27] MEDS ORDERED: LORazepam TAB(*) 1 MG PO ONE (12:52)
[2017-03-27] MEDS ORDERED: diPHENhydraMINE PO* 50 MG PO ONE (12:53)
--- NOTE | 2017-03-27 12:57 | PN ---
Subjective - Subjective Service Type: [id number] Hosp care 15 min low complexity Subjective: Patient anxious and pacing. Repeatedly requesting prn B52 to calm her down. "These coping skills aren't working. I don't want to move backwards!" She accepts initiation of haldol decanoate therapy after prompting from multiple staff members. Objective - Appearance Appearance: Obese Dysmorphic Features: No Hygiene: Normal Grooming: Fairly Well Kept - Behavior Psychomotor Activities: Abnormal-Increased Exhibits Abnormal Movement: No - Attitude and Relatedness Attitude and Relatedness: Needy Eye Contact: Fair - Speech Quality: Pressured Latencies: Short Quantity: Copious - Mood Patient's Decription of Mood: "Anxious" - Affect Observed Affect: Constricted Affect Consistent with: Dysphoria - Thought Process Patient's Thought Process: Tangential Thought Content: Yes Suicidal Planning, No Passive Wish, No Homicidal Ideation, No Paranoid Ideation - Sensorium Experiencing Hallucinations: Yes Type of Hallucinations: Visual: No, Auditory: Yes, Command: No - Level of Consciousness Level of Consciousness: Alert Orientation: Yes Intact, Yes Orientated to Time, Yes Orientated to Place, Yes Orientated to Person - Impulse Control Impulse Control: Poor - Insight and Judgement Insight and Judgement: Impaired - Group Participation Particating in Group Activities: Yes - Medication Management Medication Management Adherence: Yes Assessment - Assessment Merits Inpatient Hospitalization: For Immediate Safety, For Stabilization Inpatient DSM-IV Dx: 1. Major depressive disorder, recurrent, moderate, with psychotic features. 2. Posttraumatic stress disorder. 3. Borderline personality disorder. 4. Borderline intellectual functioning. Clinical Impression: 26 y.o. single, homosexual white female with a history of affective instability and psychosis who was admitted for SI. Plan - Plan Treatment Plan: Name: FILOMENA WILKINSON Birthdate: 1990 [id number] We will initiate haldol decanoate 150mg IM q4wks. D/C olanzapine. Use prn thorazine for anxiety. [facility]. Continued Medication Management: Start Medication Medications: Current Medications Acetaminophen (Tylenol Tab*) 650 mg PO Q4H PRN PRN Reason: for pain; or Temp >101 F Al Hydrox/Mg Hydrox/Simethicone (Maalox Plus*) 30 ml PO Q4H PRN PRN Reason: INDIGESTION Chlorpromazine HCl (Thorazine Tab*) 100 mg PO Q6H PRN PRN Reason: AGITATION Last Admin: 03/27/17 11:22 Dose: 100 mg Diphenhydramine HCl (Benadryl Po*) 50 mg PO ONCE ONE Stop: 03/27/17 12:54 Docusate Sodium (Colace Cap*) 100 mg PO BID PRN PRN Reason: CONSTIPATION Fluoxetine HCl (Prozac Cap*) 20 mg PO DAILY [facility] Last Admin: 03/27/17 10:15 Dose: 20 mg Haloperidol Decanoate (Haldol Decanoate*) 150 mg IM Q28D [facility] Lorazepam (Ativan Tab(*)) 2 mg PO ONCE ONE Stop: 03/27/17 12:53 Multivitamins (Theragran Tab*) 1 tab PO DAILY [facility] Last Admin: 03/27/17 11:23 Dose: Not Given Nicotine (Nicotine Inhaler*) 10 mg INH Q2H PRN PRN Reason: CRAVING Last Admin: 03/27/17 12:44 Dose: 10 mg Nicotine Polacrilex (Nicotine Gum*) 2 mg PO Q2H PRN PRN Reason: CRAVING Last Admin: 03/22/17 22:38 Dose: 2 mg Nicotine Polacrilex (Nicotine Gum*) 4 mg PO Q2H PRN PRN Reason: CRAVING Last Admin: 03/27/17 12:44 Dose: 4 mg Throat Lozenges (Chloraseptic Ian*) 1 ian PO Q2H PRN PRN Reason: SORE THROAT Last Admin: 03/27/17 10:58 Dose: 1 ian - Discharge Plan Discharge Plan: Consider Longer Term Tx
[2017-03-27] MEDS ORDERED: Haloperidol Decanoate* 50 MG/ML AMP IM SCH (13:00)
[2017-03-27] MEDS ORDERED: Mouth Piece, Nicotine* 1 EACH CARTRIDGE ONE (18:22)
[2017-03-28] MEDS: Nicotine GUM* 2 MG PO PRN ×10 (00:05→19:40)
[2017-03-28] MEDS: Nicotine Inhaler* 10 MG AMP Q2H PRN CRAVING INH ×3 (07:20→19:39)
[2017-03-28] MEDS: Vitamin THERAPEUTIC TAB PO SCH (08:27)
[2017-03-28] MEDS: FLUoxetine CAP* 20 MG PO SCH ×2 (08:27→19:13)
[2017-03-28] MEDS: chlorproMAZINE TAB* 100 MG PO PRN ×2 (09:59→15:37)
[2017-03-28] MEDS: Benzocaine/Menthol LOZ* 1 LOZENGE PO PRN ×2 (14:53→19:39)
--- NOTE | 2017-03-28 16:16 | PN ---
Subjective - Subjective Service Type: 61485 Hosp care 15 min low complexity Subjective: Patient tolerated the introduction of haldol decanoate 150mg IM yesterday without side effects. She is requesting additional antipsychotic and would like to be put back on oral olanzapine. She is also requesting increase in fluoxetine to 20mg PO BID. Patient anxious but under behavioral control. Objective - Appearance Appearance: Obese Dysmorphic Features: No Hygiene: Normal Grooming: Fairly Well Kept - Behavior Psychomotor Activities: Abnormal-Increased Exhibits Abnormal Movement: No - Attitude and Relatedness Attitude and Relatedness: Cooperative Eye Contact: Fair - Speech Quality: Unpressured Latencies: Normal Quantity: Appropriate - Mood Patient's Decription of Mood: "Anxious" - Affect Observed Affect: Constricted Affect Consistent with: Dysphoria - Thought Process Patient's Thought Process: Coherent Thought Content: Yes Paranoid Ideation, No Passive Wish, No Suicidal Planning, No Homicidal Ideation - Sensorium Experiencing Hallucinations: Yes Type of Hallucinations: Visual: No, Auditory: Yes, Command: No - Level of Consciousness Level of Consciousness: Alert Orientation: Yes Intact, Yes Orientated to Time, Yes Orientated to Place, Yes Orientated to Person - Impulse Control Impulse Control: Poor - Insight and Judgement Insight and Judgement: Impaired - Group Participation Particating in Group Activities: No - Medication Management Medication Management Adherence: Yes Assessment - Assessment Merits Inpatient Hospitalization: For Immediate Safety, For Stabilization Inpatient DSM-IV Dx: 1. Major depressive disorder, recurrent, moderate, with psychotic features. 2. Posttraumatic stress disorder. 3. Borderline personality disorder. 4. Borderline intellectual functioning. Clinical Impression: 26 y.o. single, homosexual white female with a history of affective instability and psychosis who was admitted for SI. Plan - Plan Treatment Plan: Name: FILOMENA WILKINSON Birthdate: 1990 [id number] Patient tolerating haldol decanoate 150mg IM well. Will resume olanzapine at 5mg PO BID. Use prn thorazine for anxiety. [facility]. Continued Medication Management: Start Medication Medications: Current Medications Acetaminophen (Tylenol Tab*) 650 mg PO Q4H PRN PRN Reason: for pain; or Temp >101 F Al Hydrox/Mg Hydrox/Simethicone (Maalox Plus*) 30 ml PO Q4H PRN PRN Reason: INDIGESTION Chlorpromazine HCl (Thorazine Tab*) 100 mg PO Q6H PRN PRN Reason: AGITATION Last Admin: 03/28/17 15:37 Dose: 100 mg Docusate Sodium (Colace Cap*) 100 mg PO BID PRN PRN Reason: CONSTIPATION Fluoxetine HCl (Prozac Cap*) 20 mg PO BID [facility] Haloperidol Decanoate (Haldol Decanoate*) 150 mg IM Q28D [facility] Last Admin: 03/27/17 13:31 Dose: 150 mg Multivitamins (Theragran Tab*) 1 tab PO DAILY [facility] Last Admin: 03/28/17 08:27 Dose: Not Given Nicotine (Nicotine Inhaler*) 10 mg INH Q2H PRN PRN Reason: CRAVING Last Admin: 03/28/17 10:58 Dose: 10 mg Nicotine Polacrilex (Nicotine Gum*) 2 mg PO Q2H PRN PRN Reason: CRAVING Last Admin: 03/27/17 14:24 Dose: 2 mg Nicotine Polacrilex (Nicotine Gum*) 4 mg PO Q2H PRN PRN Reason: CRAVING Last Admin: 03/28/17 15:17 Dose: 4 mg Olanzapine (Zyprexa Tab*) 5 mg PO BID [facility] Throat Lozenges (Chloraseptic Ian*) 1 ian PO Q2H PRN PRN Reason: SORE THROAT Last Admin: 03/28/17 14:53 Dose: 1 ian - Discharge Plan Discharge Plan: Consider Longer Term Tx
[2017-03-28] MEDS ORDERED: chlorproMAZINE TAB* 50 MG ONE (19:09)
[2017-03-28] MEDS: OLANzapine TAB* 5 MG PO SCH (19:13)
[2017-03-29] MEDS: Nicotine GUM* 2 MG PO PRN ×9 (07:32→19:28)
[2017-03-29] MEDS: FLUoxetine CAP* 20 MG PO SCH ×2 (08:11→21:48)
[2017-03-29] MEDS: OLANzapine TAB* 5 MG PO SCH ×2 (08:11→21:48)
[2017-03-29] MEDS: Nicotine Inhaler* 10 MG AMP Q2H PRN CRAVING INH ×4 (08:47→20:02)
[2017-03-29] MEDS: Benzocaine/Menthol LOZ* 1 LOZENGE PO PRN ×2 (08:47→19:28)
[2017-03-29] MEDS: Vitamin THERAPEUTIC TAB PO SCH (08:51)
[2017-03-29] MEDS: chlorproMAZINE TAB* 100 MG PO PRN (12:20)
--- NOTE | 2017-03-29 12:48 | PN ---
Subjective - Subjective Service Type: [id number] Hosp care 15 min low complexity Subjective: The patient is calm and cooperative this AM and has not had any behavioral outbursts on the unit over the past 24 hour period. She is tolerating the introduction of haldol decanoate 150mg and is now additionally receiving oral olanzapine 5mg BID per her preference. [facility] Objective - Appearance Appearance: Obese Dysmorphic Features: No Hygiene: Normal Grooming: Fairly Well Kept - Behavior Psychomotor Activities: Normal Exhibits Abnormal Movement: No - Attitude and Relatedness Attitude and Relatedness: Cooperative Eye Contact: Fair - Speech Quality: Unpressured Latencies: Normal Quantity: Appropriate - Mood Patient's Decription of Mood: "Okay" - Affect Observed Affect: Tense Affect Consistent with: Dysphoria - Thought Process Patient's Thought Process: Coherent Thought Content: Yes Passive Wish, Yes Paranoid Ideation, No Suicidal Planning, No Homicidal Ideation - Sensorium Experiencing Hallucinations: No, Sensorium is Clear Type of Hallucinations: Visual: No, Auditory: No, Command: No - Level of Consciousness Level of Consciousness: Alert Orientation: Yes Intact, Yes Orientated to Time, Yes Orientated to Place, Yes Orientated to Person - Impulse Control Impulse Control: Poor - Insight and Judgement Insight and Judgement: Impaired - Group Participation Particating in Group Activities: No - Medication Management Medication Management Adherence: Yes Assessment - Assessment Merits Inpatient Hospitalization: For Immediate Safety, For Stabilization Inpatient DSM-IV Dx: 1. Major depressive disorder, recurrent, moderate, with psychotic features. 2. Posttraumatic stress disorder. 3. Borderline personality disorder. 4. Borderline intellectual functioning. Clinical Impression: 26 y.o. single, homosexual white female with a history of affective instability and psychosis who was admitted for SI. Plan - Plan Treatment Plan: Name: FILOMENA WILKINSON Birthdate: 1990 [id number] Patient tolerating haldol decanoate 150mg IM well. Have resumed olanzapine at 5mg PO BID. Use prn thorazine for anxiety. [facility]. Continued Medication Management: Start Medication Medications: Current Medications Acetaminophen (Tylenol Tab*) 650 mg PO Q4H PRN PRN Reason: for pain; or Temp >101 F Al Hydrox/Mg Hydrox/Simethicone (Maalox Plus*) 30 ml PO Q4H PRN PRN Reason: INDIGESTION Chlorpromazine HCl (Thorazine Tab*) 100 mg PO Q6H PRN PRN Reason: AGITATION Last Admin: 03/29/17 12:20 Dose: 100 mg Docusate Sodium (Colace Cap*) 100 mg PO BID PRN PRN Reason: CONSTIPATION Fluoxetine HCl (Prozac Cap*) 20 mg PO BID [facility] Last Admin: 03/29/17 08:11 Dose: 20 mg Haloperidol Decanoate (Haldol Decanoate*) 150 mg IM Q28D [facility] Last Admin: 03/27/17 13:31 Dose: 150 mg Multivitamins (Theragran Tab*) 1 tab PO DAILY [facility] Last Admin: 03/29/17 08:51 Dose: Not Given Nicotine (Nicotine Inhaler*) 10 mg INH Q2H PRN PRN Reason: CRAVING Last Admin: 03/29/17 08:47 Dose: 10 mg Nicotine Polacrilex (Nicotine Gum*) 2 mg PO Q2H PRN PRN Reason: CRAVING Last Admin: 03/29/17 08:12 Dose: 2 mg Nicotine Polacrilex (Nicotine Gum*) 4 mg PO Q2H PRN PRN Reason: CRAVING Last Admin: 03/29/17 11:09 Dose: 4 mg Olanzapine (Zyprexa Tab*) 5 mg PO BID [facility] Last Admin: 03/29/17 08:11 Dose: 5 mg Throat Lozenges (Chloraseptic Ian*) 1 ian PO Q2H PRN PRN Reason: SORE THROAT Last Admin: 03/29/17 08:47 Dose: 1 ian - Discharge Plan Discharge Plan: Consider Longer Term Tx
[2017-03-29] MEDS: OLANzapine TAB*ODT* 5 MG PO PRN (15:25)
--- NOTE | 2017-03-29 16:00 | PN ---
[facility]: Group Therapy Note - Service Type Service Type: [id number] Group Psychotherapy - Group Participation Patient Participating in Group: No
[2017-03-30] MEDS: FLUoxetine CAP* 20 MG PO SCH ×2 (07:46→19:50)
[2017-03-30] MEDS: Benzocaine/Menthol LOZ* 1 LOZENGE PO PRN ×2 (07:46→18:21)
[2017-03-30] MEDS: OLANzapine TAB* 5 MG PO SCH ×2 (07:46→19:50)
[2017-03-30] MEDS: Nicotine Inhaler* 10 MG AMP Q2H PRN CRAVING INH ×3 (07:47→18:21)
[2017-03-30] MEDS: Vitamin THERAPEUTIC TAB PO SCH (07:47)
[2017-03-30] MEDS: Nicotine GUM* 2 MG PO PRN ×10 (07:47→19:31)
[2017-03-30] MEDS: OLANzapine TAB*ODT* 5 MG PO PRN ×2 (10:38→15:33)
[2017-03-30] MEDS ORDERED: LORazepam TAB(*) 1 MG PO ONE (11:30)
[2017-03-30] MEDS ORDERED: diPHENhydraMINE PO* 50 MG PO ONE (11:30)
--- NOTE | 2017-03-30 11:35 | PN ---
Subjective - Subjective Service Type: 04155 Hosp care 15 min low complexity Subjective: The patient approaches me anxiously in the day area, stating "Tammi denied me. I'm feeling like hurting myself." We talk about alternatives for moving forward, such as getting a supportive apartment through the [facility], which sent a sales representative business courses to evaluate her yesterday. "I can't live alone in an apartment. I've never done it before." She endorses SI with plans to cut herself on the unit. Objective - Appearance Appearance: Obese Dysmorphic Features: No Hygiene: Normal Grooming: Fairly Well Kept - Behavior Psychomotor Activities: Normal Exhibits Abnormal Movement: No - Attitude and Relatedness Attitude and Relatedness: Needy Eye Contact: Fair - Speech Quality: Unpressured Latencies: Normal Quantity: Terse - Mood Patient's Decription of Mood: "Anxious" - Affect Observed Affect: Constricted Affect Consistent with: Dysphoria - Thought Process Patient's Thought Process: Goal Directed Thought Content: Yes Suicidal Planning, No Passive Wish, No Homicidal Ideation, No Paranoid Ideation - Sensorium Experiencing Hallucinations: No, Sensorium is Clear Type of Hallucinations: Visual: No, Auditory: No, Command: No - Level of Consciousness Level of Consciousness: Alert Orientation: Yes Intact, Yes Orientated to Time, Yes Orientated to Place, Yes Orientated to Person - Impulse Control Impulse Control: Poor - Insight and Judgement Insight and Judgement: Impaired - Group Participation Particating in Group Activities: No - Medication Management Medication Management Adherence: Yes Assessment - Assessment Merits Inpatient Hospitalization: For Immediate Safety, For Stabilization Inpatient DSM-IV Dx: 1. Major depressive disorder, recurrent, moderate, with psychotic features. 2. Posttraumatic stress disorder. 3. Borderline personality disorder. 4. Borderline intellectual functioning. Clinical Impression: 26 y.o. single, homosexual white female with a history of affective instability and psychosis who was admitted for SI. Plan - Plan Treatment Plan: Name: FILOMENA WILKINSON Birthdate: 1990 [id number] Patient tolerating haldol decanoate 150mg IM well. Have resumed olanzapine at 5mg PO BID and fluoxetine at 20mg PO BID. Use prn olanzapine zydis for anxiety. Will try to refer to Arabella BROWN Ativan and Eve times one for acute anxiety. Continued Medication Management: Start Medication Medications: Current Medications Acetaminophen (Tylenol Tab*) 650 mg PO Q4H PRN PRN Reason: for pain; or Temp >101 F Al Hydrox/Mg Hydrox/Simethicone (Maalox Plus*) 30 ml PO Q4H PRN PRN Reason: INDIGESTION Diphenhydramine HCl (Benadryl Po*) 50 mg PO ONCE ONE Stop: 03/30/17 11:31 Docusate Sodium (Colace Cap*) 100 mg PO BID PRN PRN Reason: CONSTIPATION Fluoxetine HCl (Prozac Cap*) 20 mg PO BID [facility] Last Admin: 03/30/17 07:46 Dose: 20 mg Haloperidol Decanoate (Haldol Decanoate*) 150 mg IM Q28D [facility] Last Admin: 03/27/17 13:31 Dose: 150 mg Lorazepam (Ativan Tab(*)) 1 mg PO ONCE ONE Stop: 03/30/17 11:31 Multivitamins (Theragran Tab*) 1 tab PO DAILY [facility] Last Admin: 03/30/17 07:47 Dose: Not Given Nicotine (Nicotine Inhaler*) 10 mg INH Q2H PRN PRN Reason: CRAVING Last Admin: 03/30/17 07:47 Dose: 10 mg Nicotine Polacrilex (Nicotine Gum*) 2 mg PO Q2H PRN PRN Reason: CRAVING Last Admin: 03/30/17 10:36 Dose: 2 mg Nicotine Polacrilex (Nicotine Gum*) 4 mg PO Q2H PRN PRN Reason: CRAVING Last Admin: 03/30/17 10:36 Dose: 4 mg Olanzapine (Zyprexa Tab*) 5 mg PO BID [facility] Last Admin: 03/30/17 07:46 Dose: 5 mg Olanzapine (Zyprexa * Tab Odt) 5 mg PO BID PRN PRN Reason: AGITATION/ANXIETY/INSOMNIA Last Admin: 03/30/17 10:38 Dose: 5 mg Throat Lozenges (Chloraseptic Kelsey*) 1 kelsey PO Q2H PRN PRN Reason: SORE THROAT Last Admin: 03/30/17 07:46 Dose: 1 kelsey - Discharge Plan Discharge Plan: Consider Longer Term Tx
[2017-03-31] MEDS: Nicotine GUM* 2 MG PO PRN ×10 (06:34→19:50)
[2017-03-31] MEDS: Benzocaine/Menthol LOZ* 1 LOZENGE PO PRN ×3 (06:40→19:49)
[2017-03-31] MEDS: Nicotine Inhaler* 10 MG AMP Q2H PRN CRAVING INH ×5 (06:40→19:49)
[2017-03-31] MEDS: FLUoxetine CAP* 20 MG PO SCH ×2 (08:44→19:50)
[2017-03-31] MEDS: OLANzapine TAB* 5 MG PO SCH ×2 (08:44→19:50)
[2017-03-31] MEDS: Vitamin THERAPEUTIC TAB PO SCH (08:47)
[2017-03-31] MEDS: OLANzapine TAB*ODT* 5 MG PO PRN ×2 (09:19→15:43)
[2017-04-01] MEDS: Nicotine GUM* 2 MG PO PRN ×8 (06:55→20:24)
[2017-04-01] MEDS: Nicotine Inhaler* 10 MG AMP Q2H PRN CRAVING INH ×3 (07:36→17:13)
[2017-04-01] MEDS: Benzocaine/Menthol LOZ* 1 LOZENGE PO PRN ×3 (07:36→20:24)
[2017-04-01] MEDS: OLANzapine TAB* 5 MG PO SCH ×2 (10:18→20:25)
[2017-04-01] MEDS: FLUoxetine CAP* 20 MG PO SCH ×2 (10:18→20:24)
[2017-04-01] MEDS: Vitamin THERAPEUTIC TAB PO SCH (10:20)
[2017-04-01] MEDS: OLANzapine TAB*ODT* 5 MG PO PRN ×2 (11:20→18:08)
[2017-04-02] MEDS: Nicotine GUM* 2 MG PO PRN ×9 (07:26→19:26)
[2017-04-02] MEDS: Nicotine Inhaler* 10 MG AMP Q2H PRN CRAVING INH ×3 (07:26→17:48)
[2017-04-02] MEDS: OLANzapine TAB* 5 MG PO SCH ×2 (09:46→22:50)
[2017-04-02] MEDS: FLUoxetine CAP* 20 MG PO SCH ×2 (09:46→22:50)
[2017-04-02] MEDS: Vitamin THERAPEUTIC TAB PO SCH (09:47)
[2017-04-02] MEDS: OLANzapine TAB*ODT* 5 MG PO PRN ×3 (11:29→19:26)
--- NOTE | 2017-04-02 13:39 | PN ---
Subjective - Subjective Service Type: 08899 Hosp care 15 min low complexity Subjective: Patient tolerating treatment well. Did have one episode of self-harm over the weekend when she rubbed a towel back and forth on her wrist causing some mild swelling. She has no side effects from the haldol decanoate injection. Today she denies SI or HI. Objective - Appearance Appearance: Obese Dysmorphic Features: No Hygiene: Normal Grooming: Fairly Well Kept - Behavior Psychomotor Activities: Normal Exhibits Abnormal Movement: No - Attitude and Relatedness Attitude and Relatedness: Cooperative Eye Contact: Fair - Speech Quality: Unpressured Latencies: Normal Quantity: Appropriate - Mood Patient's Decription of Mood: "Okay" - Affect Observed Affect: Fair Affect Consistent with: Dysphoria - Thought Process Patient's Thought Process: Tangential Thought Content: Yes Paranoid Ideation, No Passive Wish, No Suicidal Planning, No Homicidal Ideation - Sensorium Experiencing Hallucinations: No, Sensorium is Clear Type of Hallucinations: Visual: No, Auditory: No, Command: No - Level of Consciousness Level of Consciousness: Alert Orientation: Yes Intact, Yes Orientated to Time, Yes Orientated to Place, Yes Orientated to Person - Impulse Control Impulse Control: Poor - Insight and Judgement Insight and Judgement: Impaired - Group Participation Particating in Group Activities: No - Medication Management Medication Management Adherence: Yes Assessment - Assessment Merits Inpatient Hospitalization: For Immediate Safety, For Stabilization Inpatient DSM-IV Dx: 1. Major depressive disorder, recurrent, moderate, with psychotic features. 2. Posttraumatic stress disorder. 3. Borderline personality disorder. 4. Borderline intellectual functioning. Clinical Impression: 26 y.o. single, homosexual white female with a history of affective instability and psychosis who was admitted for SI. Plan - Plan Treatment Plan: Name: FILOMENA WILKINSON Birthdate: 1990 [id number] Patient tolerating haldol decanoate 150mg IM well. Have resumed olanzapine at 5mg PO BID and fluoxetine at 20mg PO BID. Use prn olanzapine zydis for anxiety. Will try to refer to Arabella BROWN Ativan and Benadryl times one for acute anxiety. Continued Medication Management: Different Medication Medications: Current Medications Acetaminophen (Tylenol Tab*) 650 mg PO Q4H PRN PRN Reason: for pain; or Temp >101 F Al Hydrox/Mg Hydrox/Simethicone (Maalox Plus*) 30 ml PO Q4H PRN PRN Reason: INDIGESTION Docusate Sodium (Colace Cap*) 100 mg PO BID PRN PRN Reason: CONSTIPATION Fluoxetine HCl (Prozac Cap*) 20 mg PO BID [facility] Last Admin: 04/02/17 09:46 Dose: 20 mg Haloperidol Decanoate (Haldol Decanoate*) 150 mg IM Q28D [facility] Last Admin: 03/27/17 13:31 Dose: 150 mg Multivitamins (Theragran Tab*) 1 tab PO DAILY [facility] Last Admin: 04/02/17 09:47 Dose: Not Given Nicotine (Nicotine Inhaler*) 10 mg INH Q2H PRN PRN Reason: CRAVING Last Admin: 04/02/17 12:49 Dose: 10 mg Nicotine Polacrilex (Nicotine Gum*) 2 mg PO Q2H PRN PRN Reason: CRAVING Last Admin: 04/01/17 11:20 Dose: 2 mg Nicotine Polacrilex (Nicotine Gum*) 4 mg PO Q2H PRN PRN Reason: CRAVING Last Admin: 04/02/17 12:49 Dose: 4 mg Olanzapine (Zyprexa Tab*) 5 mg PO BID [facility] Last Admin: 04/02/17 09:46 Dose: 5 mg Olanzapine (Zyprexa * Tab Odt) 5 mg PO BID PRN PRN Reason: AGITATION/ANXIETY/INSOMNIA Last Admin: 04/02/17 11:31 Dose: 5 mg Throat Lozenges (Chloraseptic Ian*) 1 ian PO Q2H PRN PRN Reason: SORE THROAT Last Admin: 04/01/17 20:24 Dose: 1 ian - Discharge Plan Discharge Plan: Consider Longer Term Tx
[2017-04-02] MEDS ORDERED: Magnesium Hydroxide LIQ* 30 ML UDC PO PRN (15:32)
[2017-04-02] MEDS: Benzocaine/Menthol LOZ* 1 LOZENGE PO PRN (19:03)
[2017-04-03] MEDS: Nicotine Inhaler* 10 MG AMP Q2H PRN CRAVING INH ×3 (08:09→17:35)
[2017-04-03] MEDS: OLANzapine TAB* 5 MG PO SCH ×2 (08:10→19:58)
[2017-04-03] MEDS: FLUoxetine CAP* 20 MG PO SCH ×2 (08:10→19:58)
[2017-04-03] MEDS: Nicotine GUM* 2 MG PO PRN ×9 (08:11→20:00)
[2017-04-03] MEDS: Vitamin THERAPEUTIC TAB PO SCH (08:12)
--- NOTE | 2017-04-03 11:01 | PN ---
Subjective - Subjective Service Type: 58224 Hosp care 15 min low complexity Subjective: Marly met with [place] representatives yesterday and was accepted for admission into their residential services agency, pending apartment availability. Team discussed her receiving a combination of ACT and PROS services in the community. Patient denies SI but states that she is bored and frustrated by the length of her stay. Objective - Appearance Appearance: Obese Dysmorphic Features: No Hygiene: Normal Grooming: Well Kept - Behavior Psychomotor Activities: Normal Exhibits Abnormal Movement: No - Attitude and Relatedness Attitude and Relatedness: Needy Eye Contact: Fair - Speech Quality: Unpressured Latencies: Normal Quantity: Appropriate - Mood Patient's Decription of Mood: "Anxious" - Affect Observed Affect: Tense Affect Consistent with: Dysphoria - Thought Process Patient's Thought Process: Goal Directed Thought Content: No Passive Wish, No Suicidal Planning, No Homicidal Ideation, No Paranoid Ideation - Sensorium Experiencing Hallucinations: No, Sensorium is Clear Type of Hallucinations: Visual: No, Auditory: No, Command: No - Level of Consciousness Level of Consciousness: Alert Orientation: Yes Intact, Yes Orientated to Time, Yes Orientated to Place, Yes Orientated to Person - Impulse Control Impulse Control: Poor - Insight and Judgement Insight and Judgement: Impaired - Group Participation Particating in Group Activities: No - Medication Management Medication Management Adherence: Yes Assessment - Assessment Merits Inpatient Hospitalization: Consolidate Improvements, Pending Safe DC Plan Inpatient DSM-IV Dx: 1. Major depressive disorder, recurrent, moderate, with psychotic features. 2. Posttraumatic stress disorder. 3. Borderline personality disorder. 4. Borderline intellectual functioning. Clinical Impression: 26 y.o. single, homosexual white female with a history of affective instability and psychosis who was admitted for SI. Plan - Plan Treatment Plan: Name: MARLY WILKINSON Birthdate: 1990 [id number] Patient tolerating haldol decanoate 150mg IM well. Have resumed olanzapine at 5mg PO BID and fluoxetine at 20mg PO BID. Use prn haldol and Benadryl for anxiety. She is declined by both [facility] and [facility] centers. Will try to optimize outpatient supports in advance of discharging patient to the community. Ativan and Benadryl times one for acute anxiety. Continued Medication Management: Different Medication Medications: Current Medications Acetaminophen (Tylenol Tab*) 650 mg PO Q4H PRN PRN Reason: for pain; or Temp >101 F Al Hydrox/Mg Hydrox/Simethicone (Maalox Plus*) 30 ml PO Q4H PRN PRN Reason: INDIGESTION Docusate Sodium (Colace Cap*) 100 mg PO BID PRN PRN Reason: CONSTIPATION Fluoxetine HCl (Prozac Cap*) 20 mg PO BID [facility] Last Admin: 04/03/17 08:10 Dose: 20 mg Haloperidol Decanoate (Haldol Decanoate*) 150 mg IM Q28D [facility] Last Admin: 03/27/17 13:31 Dose: 150 mg Magnesium Hydroxide (Milk Of Magnesia Liq*) 30 ml PO Q4H PRN PRN Reason: CONSTIPATION Multivitamins (Theragran Tab*) 1 tab PO DAILY [facility] Last Admin: 04/03/17 08:12 Dose: Not Given Nicotine (Nicotine Inhaler*) 10 mg INH Q2H PRN PRN Reason: CRAVING Last Admin: 04/03/17 08:09 Dose: 10 mg Nicotine Polacrilex (Nicotine Gum*) 2 mg PO Q2H PRN PRN Reason: CRAVING Last Admin: 04/02/17 18:28 Dose: 2 mg Nicotine Polacrilex (Nicotine Gum*) 4 mg PO Q2H PRN PRN Reason: CRAVING Last Admin: 04/03/17 10:33 Dose: 4 mg Olanzapine (Zyprexa Tab*) 5 mg PO BID [facility] Last Admin: 04/03/17 08:10 Dose: 5 mg Throat Lozenges (Chloraseptic Ian*) 1 ian PO Q2H PRN PRN Reason: SORE THROAT Last Admin: 04/02/17 19:03 Dose: 1 ian - Discharge Plan Discharge Plan: Inpatient Hospitalization
[2017-04-03] MEDS: diPHENhydraMINE PO* 50 MG PO PRN (15:22)
[2017-04-03] MEDS: Haloperidol TAB* 5 MG PO PRN (15:22)
[2017-04-03] MEDS: Benzocaine/Menthol LOZ* 1 LOZENGE PO PRN ×2 (15:31→19:05)
[2017-04-03] MEDS ORDERED: chlorproMAZINE TAB* 200 MG PO ONE ×2 (16:59→17:00)
[2017-04-03] MEDS ORDERED: chlorproMAZINE TAB* 100 MG PO ONE (18:00)
[2017-04-04] MEDS: Vitamin THERAPEUTIC TAB PO SCH (08:32)
[2017-04-04] MEDS: FLUoxetine CAP* 20 MG PO SCH ×3 (10:18→20:12)
[2017-04-04] MEDS: OLANzapine TAB* 5 MG PO SCH ×3 (10:18→20:12)
[2017-04-04] MEDS: Nicotine Inhaler* 10 MG AMP Q2H PRN CRAVING INH ×3 (10:20→15:50)
[2017-04-04] MEDS: Nicotine GUM* 2 MG PO PRN ×11 (10:22→20:44)
--- NOTE | 2017-04-04 14:32 | PN ---
Subjective - Subjective Service Type: 61697 Hosp care 15 min low complexity Subjective: Patient presents as calm and cooperative. She has been accepted for supportive housing by the [facility] services agency, but is pending an available apartment in the community and therefore remains effectively homeless. She denies SI or HI and has been increasingly active on the unit. I spoke with Dr. Yañez, clinical director at [facility], to see if he would reconsider accepting her there while she awaits supportive housing placement, however, he declined, partially because the high acuity of his units. Objective - Appearance Appearance: Obese Dysmorphic Features: No Hygiene: Normal Grooming: Fairly Well Kept - Behavior Psychomotor Activities: Normal Exhibits Abnormal Movement: No - Attitude and Relatedness Attitude and Relatedness: Cooperative Eye Contact: Fair - Speech Quality: Unpressured Latencies: Normal Quantity: Appropriate - Mood Patient's Decription of Mood: "Okay" - Affect Observed Affect: Fair Affect Consistent with: Euthymia - Thought Process Patient's Thought Process: Coherent Thought Content: No Passive Wish, No Suicidal Planning, No Homicidal Ideation, No Paranoid Ideation - Sensorium Experiencing Hallucinations: No, Sensorium is Clear Type of Hallucinations: Visual: No, Auditory: No, Command: No - Level of Consciousness Level of Consciousness: Alert Orientation: Yes Intact, Yes Orientated to Time, Yes Orientated to Place, Yes Orientated to Person - Impulse Control Impulse Control: Tenuous - Insight and Judgement Insight and Judgement: Fair - Group Participation Particating in Group Activities: Yes - Medication Management Medication Management Adherence: Yes Assessment - Assessment Merits Inpatient Hospitalization: Consolidate Improvements, Pending Safe DC Plan Inpatient DSM-IV Dx: 1. Major depressive disorder, recurrent, moderate, with psychotic features. 2. Posttraumatic stress disorder. 3. Borderline personality disorder. 4. Borderline intellectual functioning. Clinical Impression: 26 y.o. single, homosexual white female with a history of affective instability and psychosis who was admitted for SI. Plan - Plan Treatment Plan: Name: FILOMENA WILKINSON Birthdate: 1990 [id number] Patient tolerating haldol decanoate 150mg IM well. Her next injection will be April 24. We have resumed olanzapine at 5mg PO BID and fluoxetine at 20mg PO BID. Use prn haldol and Benadryl for anxiety. She is declined by both [facility] and [facility] centers. Will try to optimize outpatient supports in advance of discharging patient to the community. Possibilities include supportive housing, ACT services and participation in peer -led PROS program through [facility]. Continued Medication Management: Different Medication Medications: Current Medications Acetaminophen (Tylenol Tab*) 650 mg PO Q4H PRN PRN Reason: for pain; or Temp >101 F Al Hydrox/Mg Hydrox/Simethicone (Maalox Plus*) 30 ml PO Q4H PRN PRN Reason: INDIGESTION Diphenhydramine HCl (Benadryl Po*) 50 mg PO Q6H PRN PRN Reason: AGITATION/ANXIETY/INSOMNIA Last Admin: 04/03/17 15:22 Dose: 50 mg Docusate Sodium (Colace Cap*) 100 mg PO BID PRN PRN Reason: CONSTIPATION Fluoxetine HCl (Prozac Cap*) 20 mg PO BID [facility] Last Admin: 04/04/17 10:18 Dose: 20 mg Haloperidol (Haldol Tab*) 5 mg PO Q6H PRN PRN Reason: AGITATION/ANXIETY/INSOMNIA Last Admin: 04/03/17 15:22 Dose: 5 mg Haloperidol Decanoate (Haldol Decanoate*) 150 mg IM Q28D [facility] Last Admin: 03/27/17 13:31 Dose: 150 mg Magnesium Hydroxide (Milk Of Magnesia Liq*) 30 ml PO Q4H PRN PRN Reason: CONSTIPATION Multivitamins (Theragran Tab*) 1 tab PO DAILY [facility] Last Admin: 04/04/17 08:32 Dose: Not Given Nicotine (Nicotine Inhaler*) 10 mg INH Q2H PRN PRN Reason: CRAVING Last Admin: 04/04/17 12:23 Dose: 10 mg Nicotine Polacrilex (Nicotine Gum*) 2 mg PO Q2H PRN PRN Reason: CRAVING Last Admin: 04/04/17 13:42 Dose: 2 mg Nicotine Polacrilex (Nicotine Gum*) 4 mg PO Q2H PRN PRN Reason: CRAVING Last Admin: 04/04/17 14:23 Dose: 4 mg Olanzapine (Zyprexa Tab*) 5 mg PO BID [facility] Last Admin: 04/04/17 10:18 Dose: 5 mg Throat Lozenges (Chloraseptic Ian*) 1 ian PO Q2H PRN PRN Reason: SORE THROAT Last Admin: 04/03/17 19:05 Dose: 1 ian - Discharge Plan Discharge Plan: Inpatient Hospitalization
[2017-04-04] MEDS: diPHENhydraMINE PO* 50 MG PO PRN (15:01)
[2017-04-04] MEDS: Haloperidol TAB* 5 MG PO PRN (15:01)
[2017-04-04] MEDS: Benzocaine/Menthol LOZ* 1 LOZENGE PO PRN (15:50)
[2017-04-05] MEDS: FLUoxetine CAP* 20 MG PO SCH ×2 (08:25→20:35)
[2017-04-05] MEDS: OLANzapine TAB* 5 MG PO SCH ×2 (08:25→20:35)
[2017-04-05] MEDS: Nicotine GUM* 2 MG PO PRN ×9 (08:26→20:58)
[2017-04-05] MEDS: Nicotine Inhaler* 10 MG AMP Q2H PRN CRAVING INH ×3 (08:26→19:58)
[2017-04-05] MEDS: Haloperidol TAB* 5 MG PO PRN ×2 (09:34→18:49)
[2017-04-05] MEDS: Benzocaine/Menthol LOZ* 1 LOZENGE PO PRN ×3 (09:35→19:58)
[2017-04-05] MEDS: Vitamin THERAPEUTIC TAB PO SCH (09:36)
--- NOTE | 2017-04-05 11:23 | PN ---
Subjective - Subjective Service Type: 67423 Hosp care 15 min low complexity Subjective: Patient insistent on going home. States that she can follow up at [facility] and stay at her mother's until a [place] apartment opens up. She is anxious and needy. She denies SI or HI. Objective - Appearance Appearance: Obese Dysmorphic Features: No Hygiene: Normal Grooming: Fairly Well Kept - Behavior Psychomotor Activities: Normal Exhibits Abnormal Movement: No - Attitude and Relatedness Attitude and Relatedness: Needy Eye Contact: Fair - Speech Quality: Unpressured Latencies: Normal Quantity: Appropriate - Mood Patient's Decription of Mood: "Fine" - Affect Observed Affect: Fair Affect Consistent with: Euthymia - Thought Process Patient's Thought Process: Goal Directed Thought Content: No Passive Wish, No Suicidal Planning, No Homicidal Ideation, No Paranoid Ideation - Sensorium Experiencing Hallucinations: No, Sensorium is Clear Type of Hallucinations: Visual: No, Auditory: No, Command: No - Level of Consciousness Level of Consciousness: Alert Orientation: Yes Intact, Yes Orientated to Time, Yes Orientated to Place, Yes Orientated to Person - Impulse Control Impulse Control: Poor - Insight and Judgement Insight and Judgement: Impaired - Group Participation Particating in Group Activities: No - Medication Management Medication Management Adherence: Yes Assessment - Assessment Merits Inpatient Hospitalization: Consolidate Improvements, Pending Safe DC Plan Inpatient DSM-IV Dx: 1. Major depressive disorder, recurrent, moderate, with psychotic features. 2. Posttraumatic stress disorder. 3. Borderline personality disorder. 4. Borderline intellectual functioning. Clinical Impression: 26 y.o. single, homosexual white female with a history of affective instability and psychosis who was admitted for SI. Plan - Plan Treatment Plan: Name: FILOMENA WILKINSON Birthdate: 1990 [id number] Patient tolerating haldol decanoate 150mg IM well. Her next injection will be April 24. We have resumed olanzapine at 5mg PO BID and fluoxetine at 20mg PO BID. Use prn haldol and Benadryl for anxiety. She is declined by both [facility] and [place] psych centers. Will try to optimize outpatient supports in advance of discharging patient to the community. Possibilities include supportive housing, ACT services and participation in peer -led PROS program through [facility]. Continued Medication Management: Different Medication Medications: Current Medications Acetaminophen (Tylenol Tab*) 650 mg PO Q4H PRN PRN Reason: for pain; or Temp >101 F Al Hydrox/Mg Hydrox/Simethicone (Maalox Plus*) 30 ml PO Q4H PRN PRN Reason: INDIGESTION Diphenhydramine HCl (Benadryl Po*) 50 mg PO Q6H PRN PRN Reason: AGITATION/ANXIETY/INSOMNIA Last Admin: 04/04/17 15:01 Dose: 50 mg Docusate Sodium (Colace Cap*) 100 mg PO BID PRN PRN Reason: CONSTIPATION Fluoxetine HCl (Prozac Cap*) 20 mg PO BID [facility] Last Admin: 04/05/17 08:25 Dose: 20 mg Haloperidol (Haldol Tab*) 5 mg PO Q6H PRN PRN Reason: AGITATION/ANXIETY/INSOMNIA Last Admin: 04/05/17 09:34 Dose: 5 mg Haloperidol Decanoate (Haldol Decanoate*) 150 mg IM Q28D [facility] Last Admin: 03/27/17 13:31 Dose: 150 mg Magnesium Hydroxide (Milk Of Magnesia Liq*) 30 ml PO Q4H PRN PRN Reason: CONSTIPATION Multivitamins (Theragran Tab*) 1 tab PO DAILY [facility] Last Admin: 04/05/17 09:36 Dose: Not Given Nicotine (Nicotine Inhaler*) 10 mg INH Q2H PRN PRN Reason: CRAVING Last Admin: 04/05/17 08:26 Dose: 10 mg Nicotine Polacrilex (Nicotine Gum*) 2 mg PO Q2H PRN PRN Reason: CRAVING Last Admin: 04/04/17 20:28 Dose: 2 mg Nicotine Polacrilex (Nicotine Gum*) 4 mg PO Q2H PRN PRN Reason: CRAVING Last Admin: 04/05/17 10:30 Dose: 4 mg Olanzapine (Zyprexa Tab*) 5 mg PO BID [facility] Last Admin: 04/05/17 08:25 Dose: 5 mg Throat Lozenges (Chloraseptic Ian*) 1 ian PO Q2H PRN PRN Reason: SORE THROAT Last Admin: 04/05/17 09:35 Dose: 1 ian - Discharge Plan Discharge Plan: Inpatient Hospitalization
--- NOTE | 2017-04-05 15:23 | ED ---
Yanna Lofton Edward, scribed for Tj Lombardi MD on 03/19/17 at 1125 . Psychiatric Complaint - HPI Summary HPI Summary: 26 y/o female presents to the ED c/o acute on chronic SI with a plan. Pt was seen yesterday in the ED for the same sx. Pt states her mom and counselor are scared that she will hurt herself. Pt has a plan to overdose on Ambien. Associated sx: lacerations on R forearm, bandaged from yesterday's visit to the ED. She frequently visits the ED for the same problems. Patient will be seen by a MHU land surveying party chief. PMHx depression, suicidal attempts, anxiety. - History Of Current Complaint Hx Obtained From: Patient Hx Last Menstrual Period: MIRENA IUD Onset/Duration: Gradual Onset Timing: Constant Character: Depressed Has Suicidal: Reports: Thoughts, With A Plan - OD on Ambien, Demonstrates Gesture - Lacerations on R forearm - Allergies/Home Medications Allergies/Adverse Reactions: Allergies Allergy/AdvReac Type Severity Reaction Status Date / Time Penicillin V Allergy Severe Hives Verified 02/10/17 13:41 Latex Allergy Intermediate Rash Verified 02/10/17 13:41 Lactose Intolerance (GI) Allergy Diarrhea Verified 02/10/17 13:41 glue Allergy Rash Uncoded 02/10/17 13:41 steri strips Allergy Rash Uncoded 02/10/17 13:41 PMH/Surg Hx/FS Hx/Imm Hx Previously Healthy: No Endocrine/Hematology History: Reports: Hx Unexplained Bleeding Denies: Hx Anticoagulant Therapy, Hx Blood Disorders, Hx Thyroid Disease, Other Endocrine/Hematological Disorders - borderline diabetic Comment Only: Hx Diabetes - Borderline Cardiovascular History: Denies: Hx Hypertension, Hx Pacemaker/ICD, Other Cardiovascular Problems/ Disorders Respiratory History: Denies: Hx Asthma - patient denied, Hx Chronic Bronchitis, Hx Chronic Obstructive Pulmonary Disease (COPD), Hx Cystic Fibrosis, Hx Lung Cancer, Hx Pleural Effusion, Hx Pneumonia, Hx Pulmonary Edema, Hx Pulmonary Embolism, Hx Seasonal Allergies, Hx Sleep Apnea, Other Respiratory Problems/Disorders GI History: Denies: Hx Ulcer, Other GI Disorders History: Reports: Other Problems/Disorders - Urinary Retention and Herpes Denies: Hx Renal Disease Musculoskeletal History: Denies: Other Musculoskeletal History Sensory History: Reports: Hx Contacts or Glasses Denies: Hx Cataracts, Hx Eye Injury, Hx Eye Prosthesis, Hx Glaucoma, Hx Legally Blind, Hx Macular Degeneration, Hx Deafness, Hx Hearing Aid, Hx Hearing Problem, Other Sensory Impairments Opthamlomology History: Reports: Hx Contacts or Glasses Denies: Hx Cataracts, Hx Eye Injury, Hx Eye Prosthesis, Hx Glaucoma, Hx Legally Blind, Hx Macular Degeneration, Other Sensory Impairments Neurological History: Reports: Hx Developmental Delay, Hx Headaches, Hx Seizures Denies: Hx Dementia, Hx Migraine, Hx Nerve Disease, Hx Spinal Cord Injury, Hx Transient Ischemic Attacks (TIA), Other Neuro Impairments/Disorders Psychiatric History: Reports: Hx Anxiety, Hx Attention Deficit Hyperactivity Disorder, Hx Eating Disorder, Hx Depression, Hx Panic Disorder, Hx Post Traumatic Stress Disorder, Hx Inpatient Treatment, Hx Community Mental Health Tx , Hx Bipolar Disorder, Hx Suicide Attempt, Hx of Violent Episodes Against Others - SEE VIOLENCE HX, Hx Substance Abuse - OD on ativan 03/14/2017, Other Psychiatric Issues/Disorders Comment Only: Hx Schizophrenia - Schizoaffective Disorder - Cancer History Hx Chemotherapy: No Hx Radiation Therapy: No Hx Palliative Cancer Treatment: No - Immunization History Date of Tetanus Vaccine: UTD Date of Influenza Vaccine: Unk Infectious Disease History: 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 - Social History Alcohol Use: Occasionally Alcohol Amount: "drank beer awhile ago" Hx Substance Use: No Substance Use Type: Reports: Sedatives Substance Use Comment - Amount & Last Used: denies substance abuse Hx Tobacco Use: Yes Smoking Status (MU): Current Every Day Smoker Type: Cigarettes Amount Used/How Often: 4 cigarettes per day Length of Time of Smoking/Using Tobacco: 3 years Have You Smoked in the Last Year: Yes Review of Systems Negative: Fever, Chills Negative: Erythema Negative: Sore Throat Negative: Chest Pain Negative: Shortness Of Breath, Cough Negative: Abdominal Pain, Vomiting, Nausea Negative: dysuria, hematuria Negative: Myalgia, Edema Skin: Other - Laceration on R forearm Negative: Rash Neurological: Other - No dizziness Positive: Depressed - SI with a plan All Other Systems Reviewed And Are Negative: Yes Physical Exam - Summary Physical Exam Summary: Constitutional: Well-developed, Well-nourished, Alert. (-) Distressed Skin: Warm, Dry. Bandage on R forearm from yesterday's visit to the ED. HENT: Normocephalic; Atraumatic Eyes: Conjunctiva normal Neck: Musculoskeletal ROM normal neck. (-) JVD, (-) Stridor, (-) Tracheal deviation Cardio: Rhythm regular, rate normal, Heart sounds normal; Intact distal pulses; The pedal pulses are 2+ and symmetric. Radial pulses are 2+ and symmetric. (-) Murmur Pulmonary/Chest wall: Effort normal. (-) Respiratory distress, (-) Wheezes, (-) Rales Abd: Soft, (-) Tenderness, (-) Distension, (-) Guarding, (-) Rebound Musculoskeletal: (-) Edema Lymph: (-) Cervical adenopathy Neuro: Alert, Oriented x3 Psych: Mood and affect Normal. Triage Information Reviewed: Yes Vital Signs On Initial Exam: Initial Vitals Resp 20 03/19/17 12:47 Vital Signs Reviewed: Yes Diagnostics - Vital Signs Vital Signs Temp Pulse Resp BP Pulse Ox 03/19/17 14:01 36.4 C 110 20 133/73 98 03/19/17 12:47 20 - Laboratory Lab Results: Lab Results 03/19/17 03/19/17 03/19/17 Range/Units 11:04 11:04 12:32 WBC 8.4 (3.5-10.8) 10^3/ul RBC 4.64 (4.0-5.4) 10^6/ul Hgb 13.9 (12.0-16.0) g/dl Hct 41 (35-47) % MCV 89 (80-97) fL MCH 30 (27-31) pg MCHC 34 (31-36) g/dl RDW 14 (10.5-15) % Plt Count 386 (150-450) 10^3/ul MPV 9 (7.4-10.4) um3 Neut % (Auto) 61.5 (38-83) % Lymph % (Auto) 29.0 (25-47) % [place] % (Auto) 7.3 (1-9) % Eos % (Auto) 0.9 (0-6) % Baso % (Auto) 1.3 (0-2) % Absolute Neuts (auto) 5.2 (1.5-7.7) 10^3/ul Absolute Lymphs (auto) 2.4 (1.0-4.8) 10^3/ul Absolute Monos (auto) 0.6 (0-0.8) 10^3/ul Absolute Eos (auto) 0.1 (0-0.6) 10^3/ul Absolute Basos (auto) 0.1 (0-0.2) 10^3/ul Absolute Nucleated RBC 0 10^3/ul Nucleated RBC % 0 Sodium (133-145) mmol/L Potassium (3.5-5.0) mmol/L Chloride (101-111) mmol/L Carbon Dioxide (22-32) mmol/L Anion Gap (2-11) mmol/L BUN (6-24) mg/dL Creatinine (0.51-0.95) mg/dL Est GFR ( Amer) (>60) Est GFR (Non-Af Amer) (>60) BUN/Creatinine Ratio (8-20) Glucose (70-100) mg/dL Calcium (8.6-10.3) mg/dL Total Bilirubin (0.2-1.0) mg/dL AST (13-39) U/L ALT (7-52) U/L Alkaline Phosphatase (34-104) U/L Total Protein (6.4-8.9) g/dL Albumin (3.2-5.2) g/dL Globulin (2-4) g/dL Albumin/Globulin Ratio (1-3) TSH (0.34-5.60) mcIU/mL Urine Color Yellow Urine Appearance Cloudy Urine pH 6.0 (5-9) Ur Specific [place] 1.014 (1.010-1.030) Urine Protein Negative (Negative) Urine Ketones Negative (Negative) Urine Blood 1+ H (Negative) Urine Nitrate Negative (Negative) Urine Bilirubin Negative (Negative) Urine Urobilinogen Negative (Negative) Ur Leukocyte Esterase 3+ H (Negative) Urine WBC (Auto) 2+(11-20/hpf) H (Absent) Urine RBC (Auto) 1+(3-5/hpf) H (Absent) Ur Squamous Epith Cells Present H (Absent) Urine Bacteria 1+ H (Absent) Urine Glucose Negative (Negative) Salicylates (<30) mg/dL Urine Opiates Screen None detected (None Detect) Acetaminophen mcg/mL Ur Barbiturates Screen None detected (None Detect) Ur Phencyclidine Scrn None detected (None Detect) Ur Amphetamines Screen None detected (None Detect) U Benzodiazepines Scrn Presumptive positive H (None Detect) Urine Cocaine Screen None detected (None Detect) U Cannabinoids Screen None detected (None Detect) Serum Alcohol (<10) mg/dL 03/19/17 Range/Units 12:32 WBC (3.5-10.8) 10^3/ul RBC (4.0-5.4) 10^6/ul Hgb (12.0-16.0) g/dl Hct (35-47) % MCV (80-97) fL MCH (27-31) pg MCHC (31-36) g/dl RDW (10.5-15) % Plt Count (150-450) 10^3/ul MPV (7.4-10.4) um3 Neut % (Auto) (38-83) % Lymph % (Auto) (25-47) % [place] % (Auto) (1-9) % Eos % (Auto) (0-6) % Baso % (Auto) (0-2) % Absolute Neuts (auto) (1.5-7.7) 10^3/ul Absolute Lymphs (auto) (1.0-4.8) 10^3/ul Absolute Monos (auto) (0-0.8) 10^3/ul Absolute Eos (auto) (0-0.6) 10^3/ul Absolute Basos (auto) (0-0.2) 10^3/ul Absolute Nucleated RBC 10^3/ul Nucleated RBC % Sodium 137 (133-145) mmol/L Potassium 3.8 (3.5-5.0) mmol/L Chloride 104 (101-111) mmol/L Carbon Dioxide 26 (22-32) mmol/L Anion Gap 7 (2-11) mmol/L BUN 8 (6-24) mg/dL Creatinine 0.81 (0.51-0.95) mg/dL Est GFR ( Amer) 108.3 (>60) Est GFR (Non-Af Amer) 84.2 (>60) BUN/Creatinine Ratio 9.9 (8-20) Glucose 83 (70-100) mg/dL Calcium 9.6 (8.6-10.3) mg/dL Total Bilirubin 0.40 (0.2-1.0) mg/dL AST 18 (13-39) U/L ALT 21 (7-52) U/L Alkaline Phosphatase 67 (34-104) U/L Total Protein 8.3 (6.4-8.9) g/dL Albumin 4.5 (3.2-5.2) g/dL Globulin 3.8 (2-4) g/dL Albumin/Globulin Ratio 1.2 (1-3) TSH 1.65 (0.34-5.60) mcIU/mL Urine Color Urine Appearance Urine pH (5-9) Ur Specific [place] (1.010-1.030) Urine Protein (Negative) Urine Ketones (Negative) Urine Blood (Negative) Urine Nitrate (Negative) Urine Bilirubin (Negative) Urine Urobilinogen (Negative) Ur Leukocyte Esterase (Negative) Urine WBC (Auto) (Absent) Urine RBC (Auto) (Absent) Ur Squamous Epith Cells (Absent) Urine Bacteria (Absent) Urine Glucose (Negative) Salicylates < 2.50 (<30) mg/dL Urine Opiates Screen (None Detect) Acetaminophen < 15 mcg/mL Ur Barbiturates Screen (None Detect) Ur Phencyclidine Scrn (None Detect) Ur Amphetamines Screen (None Detect) U Benzodiazepines Scrn (None Detect) Urine Cocaine Screen (None Detect) U Cannabinoids Screen (None Detect) Serum Alcohol < 10 (<10) mg/dL Result Diagrams: 03/19/17 12:32 03/19/17 12:32 Lab Statement: Any lab studies that have been ordered have been reviewed, and results considered in the medical decision making process. Course/Dx - Course Assessment/Plan: 26 y/o female presents to the ED c/o gradual onset SI with a plan. Pt was seen yesterday in the ED for the same sx. Pt states her mom and counselor are scared that she will hurt herself. Pt has a plan to overdose on Ambien. Associated sx: lacerations on R forearm, bandaged from yesterday's visit to the ED. She frequently visits the ED for the same problems. Patient will be seen by a MHU land surveying party chief. Pt is medically cleared by Dr. Lombardi for MHU evaluation at 16:00. After being seen by a MHU land surveying party chief, the patient will be admitted to [facility]. - Differential Dx/Clinical Impression Provider Diagnosis: Mood disorder, Self-injurious behavior Discharge - Discharge Plan Condition: Stable Disposition: ADMITTED TO [facility] documentation as recorded by the Yanna haskins Edward accurately reflects the service I personally performed and the decisions made by Maria C youngblood Jerry, MD.
[2017-04-06] MEDS: OLANzapine TAB* 5 MG PO SCH (07:54)
[2017-04-06] MEDS: FLUoxetine CAP* 20 MG PO SCH (07:54)
[2017-04-06] MEDS: Nicotine Inhaler* 10 MG AMP Q2H PRN CRAVING INH ×2 (07:54→13:01)
[2017-04-06] MEDS: Nicotine GUM* 2 MG PO PRN ×3 (07:56→14:25)
[2017-04-06] MEDS: Vitamin THERAPEUTIC TAB PO SCH (07:57)
[2017-04-06 08:50] VITALS: BP 118/83
--- NOTE | 2017-04-07 08:00 | DS ---
DISCHARGE SUMMARY: DATE OF ADMISSION: 03/19/17 DATE OF DISCHARGE: 04/06/17 DISCHARGE DIAGNOSES: As follows, [place] I: Unspecified psychotic disorder, post-traumatic stress disorder. [place] II: Borderline personality disorder (primary diagnosis), borderline intellectual functioning. [place] III: Hypertension. [place] IV: Severe housing and primary support stressors. [place] V: At the time of admission was 33 and at the time of discharge is 53. CONDITION AT THE TIME OF DISCHARGE: Guarded. The patient has a chronic history of acting out and h arming herself in the ways that heller attention and get herself admitted to the psychiatric unit. She has known to have behavioral problems related to both her intellectual disability as well as her personality disorder. The patient has agreed to followup at the [facility] [place], [place] how[place], she does have a history of limited adherence with outpatient supports in the community. To min imize risk, we have attempted to transfer her to one of the [facility] psychiatric facilities, however, s he was refused by both Tammi and Arabella. She was also refused for treatment initiation with the local assertive community treatment team. This leaves up in a situation she must rely on standard mental health followup at the [facility]. We have recommended that she be enrolled in the [facility]OS Program, which is a peer-led skilled building support group. In addition, we have signed her up for housing services through the [facility], however, she is pending availab ility of a supported apartment. With that being stated, the patient states that this is the best jordana t she has done in long time. She is on an injectables antipsychotic treatment with Haldol Decanoat e and she is stating "I am 26 years old now and I need to get on my life without having to come to [facility] all the time." For these reasons, we feel that she can be treated in a less restrictive setting. MENTAL STATUS EXAMINATION AT THE TIME OF DISCHARGE: The patient is an obese, young white female wea ring leggett tights and a leggett T-shirt, who has normal hygiene. She has short cut pink hair. She is c kingsley and cooperative. Her speech has a normal rate, tone and volume with limited vocabulary. Mood i s euthymic with full affect. Thought process is linear and goal directed. Thought content is signif icant for her to desire to be discharged from the hospital. She denies suicidal or homicidal ideati ons. She denies auditory or visual hallucinations. She does not appear to be responding to interna l stimuli. Insight and judgment are limited given her history of nonadherence with outpatient appoi ntments. Cognitively, she is awake and alert with an obviously low-average intellect by virtue of h er documented history of intellectual disability along with her simplistic vocabulary. DISCHARGE INSTRUCTIONS TO THE PATIENT: A. Medications: The patient is taking fluoxetine 20 mg p.o. b.i.d. She is taking olanzapine 5 mg p.o. b.i.d. She is taking Haldol Decanoate 150 mg IM every 4 weeks. Her next injection is due on Sunday04/24/17. Please note that the patient is on antipsyc hotic polypharmacy. The reason for this is that she is cross titrating between olanzapine and IM durham loperidol at this time B. Diet: She takes a diabetic diet. C. Activities: As tolerated. The patient is declining the continuation of further nicotine replac ement therapy, indicating her preference to continue smoking cigarettes in the community for the cynthia e being. There are no laboratory or diagnostic studies pending at the time of the discharge. D. Followup care: The patient has her appointment with Dr. Sienna Quinonez, psychiatrist at [facility] on 04/12/17. HOSPITAL COURSE: Part-A: Reason for admission: Ms. Pérez is a 26-year-old mentally disabled fema le with history of multiple previous emergency room visits and inpatient psychiatric hospitalization s due to severe borderline personality disorder, borderline intellectual functioning and chronic corina f injury as well as suicidal and parasuicidal behaviors, who is arriving at the hospital complaining of auditory hallucinations and dissociative symptoms. She presented to the emergency room of this hospital initially on 03/18/17 with multiple self-inflicted lacerations to her forearms. Sh joshua related that she felt suicidal and was upset because her ex-girlfriend had sent her text on to tell her to "go kill herself." The patient on Sunday night was able to contract for safety and was discharged home with followup at [facility], however, when she kept her appo intment, [facility] providers indicated that she had strong thoughts of taking an overdose on h er prescribed medication, which led to her referral back to the emergency room and hospitalization. Part-B: Psychiatric treatment rendered: The patient was admitted to the [facility] and placed on q.15-minute checks for her own safety. This is the patient that has had well over 20 emergency room visits so far this year and is seen as being a heavy utilizer of acute inpatient sychiatric resources. We were able to have stakeholders meeting with members of the community roni chowdhury her pillowcase folder and providers with [facility]. It was determined that she would b enefit from [facility] psychiatric hospitalization, however, in keeping with the recent pattern they decl ined a bed for Marly believing that she is mostly behavioral and is not likely to improve in [facility]. This essentially brought us back to square one. The patient is homeless and has had tenuous housing in the community for several months if not years. For this reason, we refe rred her to the [facility], which came in and met with her and they determined that they could reopen her case and provide her with supportive housing, however, she would be placed on a wait list of uncertain length. Further attempts were made to convince the [facility] hospitals to accept her now that she had at least some housing options in place, however, they continue to decline her. At that point, we considered assertive community treatment and the patient was seen by the acting leader he re in the hospital. On the day of discharge, however, they felt that given her history of not coope rating, they declined her for services as well. We were able to speak with [facility] alth who agreed to take her on. They feel that the [facility] Program, which is a peer-support group that has intensive meetings based on recovery skills and coping mechanisms would be appropriate and the p atient was agreeable with this. We contacted her mother who agreed to provide Marly with temporary housing in the community until she could get into [facility]. Furthermore, we addressed th e patient's lack of medication adherence by placing her on a trial of haloperidol decanoate at the d ose of 150 mg IM. She had her initial dose and tolerated this well and we did note that she had bet ter behavioral control thereafter. Her next injections will be due on 04/24/17 in the community. I n addition, we kept her on olanzapine 5 mg twice daily as well as fluoxetine 20 mg twice daily to im prove her anxiety and psychotic symptoms. The patient tolerated these interventions well. She star abby camejo for discharge, which is a good sign. At this time, we feel that this is as safe as we can make her in this short-term setting and we wish her the best for safe and healthy future. [id number]/[facility] #: [id number]
== END 2017-04-06 15:45 | disposition home or self-care (01) | DRG 751 ==
LOC: ED 10:51 → BSU 17:25
PROVIDERS: ADMIT Psychiatry & Neurology Psychiatry; ATTEND Psychiatry & Neurology Psychiatry
PROC: GZHZZZZ Group Psychotherapy (ICD-10-PCS; principal; 2017-03-29)
DX: F33.1 Major depressive disorder, recurrent, moderate (principal); F23 Brief psychotic disorder; R45.851 Suicidal ideations; F43.10 Post-traumatic stress disorder, unspecified; F60.3 Borderline personality disorder; R41.83 Borderline intellectual functioning; I10 Essential (primary) hypertension; E66.9 Obesity, unspecified; G40.909 Epilepsy, unspecified, not intractable, without status epilepticus; F44.9 Dissociative and conversion disorder, unspecified; J45.909 Unspecified asthma, uncomplicated; Z88.0 Allergy status to penicillin; R33.9 Retention of urine, unspecified; E73.9 Lactose intolerance, unspecified; F41.0 Panic disorder [episodic paroxysmal anxiety]; F50.9 Eating disorder, unspecified; F17.210 Nicotine dependence, cigarettes, uncomplicated; Z68.31 Body mass index [BMI] 31.0-31.9, adult; Z91.5 Personal history of self-harm; Z91.19 Patient's noncompliance with other medical treatment and regimen; Z81.8 Family history of other mental and behavioral disorders; Z91.040 Latex allergy status; Z91.048 Other nonmedicinal substance allergy status; Z81.1 Family history of alcohol abuse and dependence; Z72.89 Other problems related to lifestyle; Z59.0 Homelessness; M79.89 Other specified soft tissue disorders
CPT/HCPCS: 36415; 80053; 80061; 80307; 80320; 80329; 81003; 81015; 83036; 84443; 85025; 87086; 99222; 99231; 99238; 99406; A9270-GY; G0480; J0515; J1631

== ENCOUNTER 2017-04-10 14:05 | Emergency (ER) | payer MEDICAID ==
[2017-04-10 14:30] VITALS: BP 124/63
[2017-04-10] MEDS ORDERED: Lidocaine 1% MPF* 2 ML VIAL INJ ONE ×2 (14:39→15:13)
--- NOTE | 2017-04-10 14:42 | UC ---
Laceration HPI - HPI Summary HPI Summary: Pt presents to urgent care with self inflicted lacerations to left forearm. Pt states she was stressed regarding to living situation. Pt states she is out of her mental health medications. Pt states she was an inpatient mental health patient x 4 weeks - was discharged on Sunday. Pt states used a razor blade to cut because "couldn't control it" Pt denies SI/HI. last Tdap 1 year ago. Not immunocompromised. Not anticoagulated. No other complaints. Denies other self injurious behaviors or ingestions Pt's medications reviewed at this visit - History Of Current Complaint Chief Complaint: UCLaceration Stated Complaint: CUTS ARM Time Seen by Provider: 04/10/17 14:34 Hx Obtained From: Patient Hx Last Menstrual Period: pt states has IUD - no period Laceration Location: Arm Mechanism Of Injury: Sharp Trauma Onset/Duration: Sudden Onset Severity: Mild Pain Intensity: 2 - Allergies/Home Medications Allergies/Adverse Reactions: Allergies Allergy/AdvReac Type Severity Reaction Status Date / Time Penicillin V Allergy Severe Hives Verified 04/10/17 14:23 Latex Allergy Intermediate Rash Verified 04/10/17 14:23 Lactose Intolerance (GI) Allergy Diarrhea Verified 04/10/17 14:23 glue Allergy Rash Uncoded 04/10/17 14:23 steri strips Allergy Rash Uncoded 04/10/17 14:23 PMH/Surg Hx/FS Hx/Imm Hx Previously Healthy: Yes Psychological History: Anxiety, Depression Other History Of: Negative For: Anticoagulant Therapy - Surgical History Surgical History: None - Family History Known Family History: Positive: Unknown - Pt is adopted, known some Hx of mood d /o, Other - FMHx of depression, mood disorders, and anxiety disorders Family History: Patient is adopted - FHx mostly unknown except significant for alcohol abuse since the patient was born with Alcohol Syndrome. - Social History Occupation: Unemployed Lives: With Family - lives with mother Alcohol Use: Occasionally Alcohol Amount: "drank beer awhile ago" Substance Use Type: None Substance Use Comment - Amount & Last Used: denies substance abuse Smoking Status (MU): Current Every Day Smoker Type: Cigarettes Amount Used/How Often: 1 pack per day Length of Time of Smoking/Using Tobacco: 3 years Have You Smoked in the Last Year: Yes Household Exposure Type: Cigarettes - Immunization History Most Recent Influenza Vaccination: 05/21/16 Most Recent Tetanus Shot: Less than 10 years Most Recent Pneumonia Vaccination: 10/31/15 Review of Systems Constitutional: Negative Skin: Other - lacerations left forearms Scars b/l forearms Eyes: Negative ENT: Negative Respiratory: Negative Cardiovascular: Negative Gastrointestinal: Negative Genitourinary: Negative Motor: Negative Neurovascular: Negative Musculoskeletal: Negative Neurological: Negative Psychological: Negative All Other Systems Reviewed And Are Negative: Yes Physical Exam Triage Information Reviewed: Yes Appearance: Well-Appearing, No Pain Distress, Well-Nourished Vital Signs: Initial Vital Signs Temp 96.7 F 04/10/17 14:24 Pulse 89 04/10/17 14:24 Resp 20 04/10/17 14:24 BP 124/63 04/10/17 14:24 Pulse Ox 95 04/10/17 14:24 Vital Signs Reviewed: Yes Eyes: Positive: Conjunctiva Clear ENT: Positive: Hearing grossly normal Neck exam: Normal Neck: Positive: Supple Respiratory: Positive: No respiratory distress, No accessory muscle use Cardiovascular: Positive: Other: - 2+ radial, 2+ ulnar CBT < 2 sec Musculoskeletal: Positive: Other: - + 5/5 grasp + flex/ext wrist, elbow Neurological: Positive: Other: - + thumb up, a ok, finger spread, finger cross Psychological Exam: Normal Skin: Positive: Other - Pt with 4 parellel laceration on left forearm, volar aspect #1 4cm #2 2.5cm #3 1 cm #4 1.5cm Oozing Pt with multiple healed scars Laceration Repair - Laceration Repair 1 Description: Linear Laceration Size After Repair: Length (cm) - 4 Modified For Repair: No Type Injection: Local Anesthesia Used: 1.0% Lido - 2ml Cleansing Completed Via Routine Prep: Yes Irrigation With Pressure Irrigation Device: Yes Closure Material: Sutures - 8 simple interrupted Closure Method: Single Layer Suture Of: Skin Suture Type: Vicryl - 4-0 2 Description: Linear Laceration Size After Repair: Length (cm) - 2 Modified For Repair: Yes Type Injection: Local Anesthesia Used: 1.0% Lido - 0.5 Cleansing Completed Via Routine Prep: Yes Closure Material: Sutures Closure Method: Single Layer - 3 simple interrupted Suture Of: Skin Suture Type: Vicryl - 4-0 3 Description: Linear Laceration Size After Repair: Length (cm) - 1cm Type Injection: Local Anesthesia Used: 1.0% Lido - 0.5 Cleansing Completed Via Routine Prep: Yes Closure Material: Sutures Closure Method: Single Layer - 1 simple interrupted Suture Of: Skin Suture Type: Vicryl - 4-0 4 Description: Linear Laceration Size After Repair: Length (cm) - 2 Type Injection: Local Anesthesia Used: 1.0% Lido - 1 Cleansing Completed Via Routine Prep: Yes Closure Method: Single Layer Suture Of: Skin - 2 simple interrupted Suture Type: Vicryl - 4-0 Laceration Course/Dx - Course/Dx Course Of Treatment: Pt presents with self cutting wound to left forearm. Pt states is out of her med - denies SI/HI. Wound closed and dressed. Pt agrees to go voluntarily to the ED for mental health eval. [facility] called for transfer. [facility] for escort. [facility] - came and spoke with pt - transferred pt by police vehicle. [facility] cancelled [facility] - Differential Dx - Laceration/Wound Provider Diagnoses: self injurious behavior. multiple laceration repair Discharge - Discharge Plan Condition: Stable Disposition: TRANS HIGHER LVL OF CARE FAC
[2017-04-10] MEDS ORDERED: Lidocaine 1% MPF* 2 ML VIAL ONE (14:47)
[2017-04-10] MEDS ORDERED: Benzoin Compound STICK ONE (15:01)
== END 2017-04-10 15:32 | disposition short-term general hospital (02) ==
LOC: UCEAST 14:05
DX: S51.812A Laceration without foreign body of left forearm, initial encounter (principal); X78.8XXA Intentional self-harm by other sharp object, initial encounter; Z88.0 Allergy status to penicillin; Z91.040 Latex allergy status; Z91.011 Allergy to milk products; F41.9 Anxiety disorder, unspecified; F32.9 Major depressive disorder, single episode, unspecified; F17.210 Nicotine dependence, cigarettes, uncomplicated
CPT/HCPCS: 12002; 12004; 99213; G0463

== ENCOUNTER 2017-04-10 15:50 | Emergency (ER) | payer MEDICAID ==
[2017-04-10 16:13] VITALS: BP 135/75
[2017-04-10 16:25] LABS: Hematocrit 40 % (35-47); Hemoglobin 13.7 g/dl (12.0-16.0); Mean Corpuscular HGB Conc 34 g/dl (31-36); Mean Corpuscular Hemoglobin 29 pg (27-31); Mean Corpuscular Volume 86 fL (80-97); Mean Platelet Volume 8 um3 (7.4-10.4); Red Blood Count 4.69 10^6/ul (4.0-5.4); Red Cell Distribution Width 15 % (10.5-15); White Blood Count 12.7 10^3/ul (3.5-10.8)
[2017-04-10 16:37] LABS: ALT 22 U/L (7-52); AST 15 U/L (13-39); Albumin 4.4 g/dL (3.2-5.2); Alkaline Phosphatase 75 U/L (34-104); Anion Gap 8 mmol/L (2-11); BUN/Creatinine Ratio 17.3 (8-20); Blood Urea Nitrogen 13 mg/dL (6-24); CO2 Carbon Dioxide 24 mmol/L (22-32); Calcium 9.8 mg/dL (8.6-10.3); Chloride 105 mmol/L (101-111); EGFR African American 118.3 (>60); Globulin 3.8 g/dL (2-4); Glucose 88 mg/dL (70-100); Potassium 3.8 mmol/L (3.5-5.0); Sodium 137 mmol/L (133-145); Total Protein 8.2 g/dL (6.4-8.9)
[2017-04-10 17:06] LABS: Acetaminophen < 15 mcg/mL; Alcohol < 10 mg/dL (<10); Salicylate < 2.50 mg/dL (<30)
[2017-04-10 17:13] LABS: TSH (Thyroid Stimulating Horm) 1.35 mcIU/mL (0.34-5.60)
[2017-04-10] MEDS: Nicotine GUM* 2 MG PO PRN ×2 (17:36→19:33)
--- NOTE | 2017-04-10 22:26 | ED ---
Last Lofton Nikita, scribed for Willam Lyn MD on 04/10/17 at 1656 . Psychiatric Complaint - HPI Summary HPI Summary: This patient is a 26 year old F BIB police from to [facility] for MHE earlier today. Pt was given 14 stitches in the L arm at s/p self harm. Patient reports wanting to go home to her mother and feeling fine at home. Pt denies SI. PMHx of anxiety, depression, bipolar disorder, and suicide attempt. - History Of Current Complaint Chief Complaint: EDMentalHealth Time Seen by Provider: 04/10/17 15:59 Hx Obtained From: Patient Hx Last Menstrual Period: pt states has IUD - no period Onset/Duration: Resolved - Wants to go home. No current complaints. Aggravating Factor(s): Nothing Alleviating Factor(s): Nothing Associated Signs And Symptoms: Positive: Negative Related History: Positive For: Prior Psychiatric Issues - Anxiety, Depression, Bipolar Disorder, Suicide attmept Has Suicidal: Denies: Thoughts - Allergies/Home Medications Allergies/Adverse Reactions: Allergies Allergy/AdvReac Type Severity Reaction Status Date / Time Penicillin V Allergy Severe Hives Verified 04/10/17 15:55 Latex Allergy Intermediate Rash Verified 04/10/17 15:55 Lactose Intolerance (GI) Allergy Diarrhea Verified 04/10/17 15:55 glue Allergy Rash Uncoded 04/10/17 15:55 steri strips Allergy Rash Uncoded 04/10/17 15:55 PMH/Surg Hx/FS Hx/Imm Hx Endocrine/Hematology History: Reports: Hx Unexplained Bleeding Denies: Hx Anticoagulant Therapy, Hx Blood Disorders, Hx Thyroid Disease, Other Endocrine/Hematological Disorders - borderline diabetic Comment Only: Hx Diabetes - Borderline Cardiovascular History: Denies: Hx Hypertension, Hx Pacemaker/ICD, Other Cardiovascular Problems/ Disorders Respiratory History: Denies: Hx Asthma - patient denied, Hx Chronic Bronchitis, Hx Chronic Obstructive Pulmonary Disease (COPD), Hx Cystic Fibrosis, Hx Lung Cancer, Hx Pleural Effusion, Hx Pneumonia, Hx Pulmonary Edema, Hx Pulmonary Embolism, Hx Seasonal Allergies, Hx Sleep Apnea, Other Respiratory Problems/Disorders GI History: Denies: Hx Ulcer, Other GI Disorders History: Reports: Other Problems/Disorders - Urinary Retention and Herpes Denies: Hx Renal Disease Musculoskeletal History: Denies: Other Musculoskeletal History Sensory History: Reports: Hx Contacts or Glasses Denies: Hx Cataracts, Hx Eye Injury, Hx Eye Prosthesis, Hx Glaucoma, Hx Legally Blind, Hx Macular Degeneration, Hx Deafness, Hx Hearing Aid, Hx Hearing Problem, Other Sensory Impairments Opthamlomology History: Reports: Hx Contacts or Glasses Denies: Hx Cataracts, Hx Eye Injury, Hx Eye Prosthesis, Hx Glaucoma, Hx Legally Blind, Hx Macular Degeneration, Other Sensory Impairments Neurological History: Reports: Hx Developmental Delay, Hx Headaches, Hx Seizures Denies: Hx Dementia, Hx Migraine, Hx Nerve Disease, Hx Spinal Cord Injury, Hx Transient Ischemic Attacks (TIA), Other Neuro Impairments/Disorders Psychiatric History: Reports: Hx Anxiety, Hx Attention Deficit Hyperactivity Disorder, Hx Eating Disorder, Hx Depression, Hx Panic Disorder, Hx Post Traumatic Stress Disorder, Hx Inpatient Treatment, Hx Community Mental Health Tx , Hx Bipolar Disorder, Hx Suicide Attempt, Hx of Violent Episodes Against Others - SEE VIOLENCE HX, Hx Substance Abuse - OD on ativan 03/14/2017, Other Psychiatric Issues/Disorders Comment Only: Hx Schizophrenia - Schizoaffective Disorder - Cancer History Hx Chemotherapy: No Hx Radiation Therapy: No Hx Palliative Cancer Treatment: No - Immunization History Date of Tetanus Vaccine: UTD Date of Influenza Vaccine: Unk Infectious Disease History: No Infectious Disease History: 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 - Social History Alcohol Use: Occasionally Alcohol Amount: "drank beer awhile ago" Hx Substance Use: No Substance Use Type: Reports: None Substance Use Comment - Amount & Last Used: denies substance abuse Hx Tobacco Use: Yes Smoking Status (MU): Current Every Day Smoker Type: Cigarettes Amount Used/How Often: 1 pack per day Length of Time of Smoking/Using Tobacco: 3 years Have You Smoked in the Last Year: Yes Review of Systems Negative: Fever Positive: Other - Presents s/p self harm. NEGATIVE: SI All Other Systems Reviewed And Are Negative: Yes Physical Exam - Summary Physical Exam Summary: General: well-appearing, no pain distress Skin: warm, color reflects adequate perfusion, dry, Bandage on L wrist Head: normal Eyes: EOMI, [place] ENT: normal Neck: supple, nontender Respiratory: CTA, breath sounds present Cardiovascular: RRR Abdomen: soft, nontender Bowel: present Musculoskeletal: normal, strength/ROM intact, nml use of L hand/arm Neurological: normal, sensory/motor intact, A&O x3 Psychological: affect/mood appropriate Vital Signs On Initial Exam: Initial Vitals Temp Pulse Resp BP Pulse Ox 97.9 F 92 16 135/75 95 04/10/17 16:04 04/10/17 16:04 04/10/17 16:04 04/10/17 16:04 04/10/17 16:04 - [place] Coma Scale Coma Scale Total: 15 Diagnostics - Vital Signs Vital Signs Temp Pulse Resp BP Pulse Ox 04/10/17 16:04 97.9 F 92 16 135/75 95 - Laboratory Lab Results: Lab Results 04/10/17 04/10/17 Range/Units 16:11 16:11 WBC 12.7 H (3.5-10.8) 10^3/ul RBC 4.69 (4.0-5.4) 10^6/ul Hgb 13.7 (12.0-16.0) g/dl Hct 40 (35-47) % MCV 86 (80-97) fL MCH 29 (27-31) pg MCHC 34 (31-36) g/dl RDW 15 (10.5-15) % Plt Count 370 (150-450) 10^3/ul MPV 8 (7.4-10.4) um3 Neut % (Auto) 71.1 (38-83) % Lymph % (Auto) 21.1 L (25-47) % [place] % (Auto) 6.1 (1-9) % Eos % (Auto) 1.1 (0-6) % Baso % (Auto) 0.6 (0-2) % Absolute Neuts (auto) 9.0 H (1.5-7.7) 10^3/ul Absolute Lymphs (auto) 2.7 (1.0-4.8) 10^3/ul Absolute Monos (auto) 0.8 (0-0.8) 10^3/ul Absolute Eos (auto) 0.1 (0-0.6) 10^3/ul Absolute Basos (auto) 0.1 (0-0.2) 10^3/ul Absolute Nucleated RBC 0 10^3/ul Nucleated RBC % 0 Sodium 137 (133-145) mmol/L Potassium 3.8 (3.5-5.0) mmol/L Chloride 105 (101-111) mmol/L Carbon Dioxide 24 (22-32) mmol/L Anion Gap 8 (2-11) mmol/L BUN 13 (6-24) mg/dL Creatinine 0.75 (0.51-0.95) mg/dL Est GFR ( Amer) 118.3 (>60) Est GFR (Non-Af Amer) 92.0 (>60) BUN/Creatinine Ratio 17.3 (8-20) Glucose 88 (70-100) mg/dL Calcium 9.8 (8.6-10.3) mg/dL Total Bilirubin 0.40 (0.2-1.0) mg/dL AST 15 (13-39) U/L ALT 22 (7-52) U/L Alkaline Phosphatase 75 (34-104) U/L Total Protein 8.2 (6.4-8.9) g/dL Albumin 4.4 (3.2-5.2) g/dL Globulin 3.8 (2-4) g/dL Albumin/Globulin Ratio 1.2 (1-3) TSH Pending Beta HCG, Quant < 0.60 mIU/mL Salicylates Pending Acetaminophen Pending Serum Alcohol Pending Result Diagrams: 04/10/17 16:11 04/10/17 16:11 Lab Statement: Any lab studies that have been ordered have been reviewed, and results considered in the medical decision making process. Course/Dx - Course Course Of Treatment: DISCHARGE HOME STABLE AFTER MHE Assessment/Plan: Pt medically cleared for MHE at 1705. - Differential Dx/Clinical Impression Provider Diagnosis: Mental health problem Discharge - Discharge Plan Condition: Stable Disposition: HOME Referrals: Don Love, [employer] [Primary Care Provider] - The documentation as recorded by the Last haskins Nikita accurately reflects the service I personally performed and the decisions made by , Willam Lyn MD.
== END 2017-04-10 20:18 | disposition home or self-care (01) ==
LOC: ED 15:50
DX: Z00.8 Encounter for other general examination (principal); F41.8 Other specified anxiety disorders; F17.210 Nicotine dependence, cigarettes, uncomplicated
CPT/HCPCS: 36415; 80053; 80320; 80329; 84443; 84702; 85025; 99284; A9270-GY; G0480

== ENCOUNTER 2017-04-11 11:32 | Inpatient (IN) | payer MEDICAID, OTHER ==
[2017-04-11 12:34] LABS: Hematocrit 41 % (35-47); Hemoglobin 14.1 g/dl (12.0-16.0); Mean Corpuscular HGB Conc 34 g/dl (31-36); Mean Corpuscular Hemoglobin 30 pg (27-31); Mean Corpuscular Volume 87 fL (80-97); Mean Platelet Volume 9 um3 (7.4-10.4); Red Blood Count 4.77 10^6/ul (4.0-5.4); Red Cell Distribution Width 15 % (10.5-15); White Blood Count 10.4 10^3/ul (3.5-10.8)
[2017-04-11 12:52] LABS: ALT 20 U/L (7-52); AST 17 U/L (13-39); Albumin 4.5 g/dL (3.2-5.2); Alkaline Phosphatase 76 U/L (34-104); Anion Gap 8 mmol/L (2-11); BUN/Creatinine Ratio 17.8 (8-20); Blood Urea Nitrogen 13 mg/dL (6-24); CO2 Carbon Dioxide 24 mmol/L (22-32); Calcium 9.8 mg/dL (8.6-10.3); Chloride 104 mmol/L (101-111); EGFR African American 122.1 (>60); EGFR Non-African American 94.9 (>60); Globulin 3.8 g/dL (2-4); Glucose 89 mg/dL (70-100); Potassium 3.8 mmol/L (3.5-5.0); Sodium 136 mmol/L (133-145); Total Protein 8.3 g/dL (6.4-8.9)
[2017-04-11 12:58] LABS: Benzodiazepine Urine Screen None Detected (None Detect)
[2017-04-11 13:14] LABS: Acetaminophen < 15 mcg/mL; Alcohol < 10 mg/dL (<10); Salicylate < 2.50 mg/dL (<30)
[2017-04-11 13:24] LABS: TSH (Thyroid Stimulating Horm) 1.53 mcIU/mL (0.34-5.60)
[2017-04-11] MEDS ORDERED: LORazepam TAB(*) 1 MG PO ONE (13:41)
[2017-04-11] MEDS ORDERED: Nicotine GUM* 2 MG ONE (13:44)
[2017-04-11] MEDS: Nicotine GUM* 2 MG PO PRN ×4 (13:47→19:21)
--- NOTE | 2017-04-11 15:46 | ED ---
Carin Lofton Alfonso, scribed for Willam Lyn MD on 04/11/17 at 1225 . Psychiatric Complaint - HPI Summary HPI Summary: This patient is a 26 year old F presenting to [facility] with a chief complaint of SI since earlier today. She is requesting a MHE. The patient rates the pain 0/ 10 in severity. Symptoms aggravated by nothing. Symptoms alleviated by nothing. Patient reports not feeling safe. Medications reviewed. Patient medically cleared for MHE at 13:42. - History Of Current Complaint Time Seen by Provider: 04/11/17 11:55 Hx Obtained From: Patient Hx Last Menstrual Period: pt states has IUD - no period Onset/Duration: Sudden Onset, Lasting Hours - earlier today, Still Present Timing: Constant Severity Initially: Moderate Severity Currently: Moderate Character: Fearful - feeling not safe Aggravating Factor(s): Nothing Alleviating Factor(s): Nothing Related History: Positive For: Prior Psychiatric Issues Has Suicidal: Reports: Thoughts - Allergies/Home Medications Allergies/Adverse Reactions: Allergies Allergy/AdvReac Type Severity Reaction Status Date / Time Penicillin V Allergy Severe Hives Verified 04/10/17 15:55 Latex Allergy Intermediate Rash Verified 04/10/17 15:55 Lactose Intolerance (GI) Allergy Diarrhea Verified 04/10/17 15:55 glue Allergy Rash Uncoded 04/10/17 15:55 steri strips Allergy Rash Uncoded 04/10/17 15:55 PMH/Surg Hx/FS Hx/Imm Hx Endocrine/Hematology History: Reports: Hx Unexplained Bleeding Denies: Hx Anticoagulant Therapy, Hx Blood Disorders, Hx Thyroid Disease, Other Endocrine/Hematological Disorders - borderline diabetic Comment Only: Hx Diabetes - Borderline Cardiovascular History: Denies: Hx Hypertension, Hx Pacemaker/ICD, Other Cardiovascular Problems/ Disorders Respiratory History: Denies: Hx Asthma - patient denied, Hx Chronic Bronchitis, Hx Chronic Obstructive Pulmonary Disease (COPD), Hx Cystic Fibrosis, Hx Lung Cancer, Hx Pleural Effusion, Hx Pneumonia, Hx Pulmonary Edema, Hx Pulmonary Embolism, Hx Seasonal Allergies, Hx Sleep Apnea, Other Respiratory Problems/Disorders GI History: Denies: Hx Ulcer, Other GI Disorders History: Reports: Other Problems/Disorders - Urinary Retention and Herpes Denies: Hx Renal Disease Musculoskeletal History: Denies: Other Musculoskeletal History Sensory History: Reports: Hx Contacts or Glasses Denies: Hx Cataracts, Hx Eye Injury, Hx Eye Prosthesis, Hx Glaucoma, Hx Legally Blind, Hx Macular Degeneration, Hx Deafness, Hx Hearing Aid, Hx Hearing Problem, Other Sensory Impairments Opthamlomology History: Reports: Hx Contacts or Glasses Denies: Hx Cataracts, Hx Eye Injury, Hx Eye Prosthesis, Hx Glaucoma, Hx Legally Blind, Hx Macular Degeneration, Other Sensory Impairments Neurological History: Reports: Hx Developmental Delay, Hx Headaches, Hx Seizures Denies: Hx Dementia, Hx Migraine, Hx Nerve Disease, Hx Spinal Cord Injury, Hx Transient Ischemic Attacks (TIA), Other Neuro Impairments/Disorders Psychiatric History: Reports: Hx Anxiety, Hx Attention Deficit Hyperactivity Disorder, Hx Eating Disorder, Hx Depression, Hx Panic Disorder, Hx Post Traumatic Stress Disorder, Hx Inpatient Treatment, Hx Community Mental Health Tx , Hx Bipolar Disorder, Hx Suicide Attempt, Hx of Violent Episodes Against Others - SEE VIOLENCE HX, Hx Substance Abuse - OD on ativan 03/14/2017, Other Psychiatric Issues/Disorders Comment Only: Hx Schizophrenia - Schizoaffective Disorder - Cancer History Hx Chemotherapy: No Hx Radiation Therapy: No Hx Palliative Cancer Treatment: No - Immunization History Date of Tetanus Vaccine: UTD Date of Influenza Vaccine: Unk Infectious Disease History: 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 - Social History Alcohol Use: Occasionally Alcohol Amount: "drank beer awhile ago" Hx Substance Use: No Substance Use Type: Reports: None Substance Use Comment - Amount & Last Used: denies substance abuse Hx Tobacco Use: Yes Smoking Status (MU): Current Every Day Smoker Type: Cigarettes Amount Used/How Often: 1 pack per day Length of Time of Smoking/Using Tobacco: 3 years Have You Smoked in the Last Year: Yes Review of Systems Constitutional: Negative Neurological: Other - SI Psychological: Other - Feeling not safe All Other Systems Reviewed And Are Negative: Yes Physical Exam Triage Information Reviewed: Yes Vital Signs On Initial Exam: Initial Vitals Temp Pulse Resp BP Pulse Ox 98 F 88 18 121/78 98 04/11/17 12:19 04/11/17 12:19 04/11/17 12:19 04/11/17 12:19 04/11/17 12:19 Vital Signs Reviewed: Yes Appearance: Positive: Well-Appearing, No Pain Distress Skin: Positive: Warm, Skin Color Reflects Adequate Perfusion, Dry, Other - Healing cuts on left forearm Head/Face: Positive: Normal Head/Face Inspection Eyes: Positive: EOMI, [place]SANA ENT: Positive: Normal ENT inspection Neck: Positive: Supple, Nontender Respiratory/Lung Sounds: Positive: Clear to Auscultation, Breath Sounds Present Cardiovascular: Positive: RRR Abdomen Description: Positive: Nontender, Soft Bowel Sounds: Positive: Present Musculoskeletal: Positive: Normal, Strength/ROM Intact Neurological: Positive: Normal, Sensory/Motor Intact, Alert, Oriented to Person Place, Time Psychiatric: Positive: Affect/Mood Appropriate Diagnostics - Vital Signs Vital Signs Temp Pulse Resp BP Pulse Ox 04/11/17 15:31 96 16 106/68 98 04/11/17 13:47 16 04/11/17 12:19 98 F 88 18 121/78 98 - Laboratory Lab Results: Lab Results 04/11/17 04/11/17 04/11/17 Range/Units 12:11 12:11 12:30 WBC 10.4 (3.5-10.8) 10^3/ul RBC 4.77 (4.0-5.4) 10^6/ul Hgb 14.1 (12.0-16.0) g/dl Hct 41 (35-47) % MCV 87 (80-97) fL MCH 30 (27-31) pg MCHC 34 (31-36) g/dl RDW 15 (10.5-15) % Plt Count 355 (150-450) 10^3/ul MPV 9 (7.4-10.4) um3 Neut % (Auto) 68.4 (38-83) % Lymph % (Auto) 23.4 L (25-47) % Thomas % (Auto) 6.6 (1-9) % Eos % (Auto) 1.0 (0-6) % Baso % (Auto) 0.6 (0-2) % Absolute Neuts (auto) 7.1 (1.5-7.7) 10^3/ul Absolute Lymphs (auto) 2.4 (1.0-4.8) 10^3/ul Absolute Monos (auto) 0.7 (0-0.8) 10^3/ul Absolute Eos (auto) 0.1 (0-0.6) 10^3/ul Absolute Basos (auto) 0.1 (0-0.2) 10^3/ul Absolute Nucleated RBC 0.02 10^3/ul Nucleated RBC % 0.1 Sodium 136 (133-145) mmol/L Potassium 3.8 (3.5-5.0) mmol/L Chloride 104 (101-111) mmol/L Carbon Dioxide 24 (22-32) mmol/L Anion Gap 8 (2-11) mmol/L BUN 13 (6-24) mg/dL Creatinine 0.73 (0.51-0.95) mg/dL Est GFR ( Amer) 122.1 (>60) Est GFR (Non-Af Amer) 94.9 (>60) BUN/Creatinine Ratio 17.8 (8-20) Glucose 89 (70-100) mg/dL Calcium 9.8 (8.6-10.3) mg/dL Total Bilirubin 0.50 (0.2-1.0) mg/dL AST 17 (13-39) U/L ALT 20 (7-52) U/L Alkaline Phosphatase 76 (34-104) U/L Total Protein 8.3 (6.4-8.9) g/dL Albumin 4.5 (3.2-5.2) g/dL Globulin 3.8 (2-4) g/dL Albumin/Globulin Ratio 1.2 (1-3) TSH 1.53 (0.34-5.60) mcIU/mL Beta HCG, Quant < 0.60 mIU/mL Salicylates < 2.50 (<30) mg/dL Urine Opiates Screen None detected (None Detect) Acetaminophen < 15 mcg/mL Ur Barbiturates Screen None detected (None Detect) Ur Phencyclidine Scrn None detected (None Detect) Ur Amphetamines Screen None detected (None Detect) U Benzodiazepines Scrn None detected (None Detect) Urine Cocaine Screen None detected (None Detect) U Cannabinoids Screen None detected (None Detect) Serum Alcohol < 10 (<10) mg/dL Result Diagrams: 04/11/17 12:11 04/11/17 12:11 Lab Statement: Any lab studies that have been ordered have been reviewed, and results considered in the medical decision making process. Course/Dx - Course Course Of Treatment: ADMIT MHU AFTER MHE - Differential Dx/Clinical Impression Provider Diagnosis: Mental health problem Discharge - Discharge Plan Condition: Stable Disposition[place] [facility] [place] Referrals: Don Love NP [Primary Care Provider] - The documentation as recorded by the Carin haskins Alfonso accurately reflects the service I personally performed and the decisions made by me, Willam Lyn MD.
[2017-04-11] MEDS ORDERED: Mouth Piece, Nicotine* 1 EACH CARTRIDGE ONE (16:19)
[2017-04-11] MEDS: Nicotine Inhaler* 10 MG AMP INH PRN ×2 (16:21→18:26)
[2017-04-11] MEDS: Haloperidol TAB* 5 MG PO PRN (16:21)
[2017-04-11] MEDS: OLANzapine TAB* 5 MG PO SCH (19:59)
[2017-04-11] MEDS: FLUoxetine CAP* 20 MG PO SCH (19:59)
[2017-04-12] MEDS ORDERED: Mouth Piece, Nicotine* 1 EACH CARTRIDGE ONE (08:09)
[2017-04-12] MEDS: Nicotine GUM* 2 MG PO PRN ×5 (08:09→20:29)
[2017-04-12] MEDS: Nicotine Inhaler* 10 MG AMP INH PRN ×2 (08:09→16:01)
[2017-04-12] MEDS: OLANzapine TAB* 5 MG PO SCH ×2 (09:15→20:29)
[2017-04-12] MEDS: FLUoxetine CAP* 20 MG PO SCH ×2 (09:15→20:30)
[2017-04-12] MEDS: Al Hydrox/Mg Hydrox/Simet LIQ* 30 ML UDC PO PRN (10:09)
--- NOTE | 2017-04-12 16:25 | HP ---
DATE OF ADMISSION: 04/11/2017. JUSTIFICATION FOR ADMISSION: The patient is in need of 24 hour supervision and treatment secondary to suicidal ideations. CHIEF COMPLAINT: "I know that I can't live on my own. I need someone to watch over me and give me my medications." HISTORY OF PRESENT ILLNESS: The patient is a 26-year-old, single, white, homosexual female who has a history of both borderline personality disorder as well as borderline intellectual functioning, who is well-known to our unit from multiple past admission to the [facility], who now returns five days after her most recent discharge coming of suicidal ideations with thoughts to cut herself. The patient apparently came in on a 9.45 legal status after calling the [facility] stating that she was having thoughts of suicide. She had come to the hospital one day prior after cutting herself and at that time required 14 stitches; however, she denied suicidal ideations at the time and was discharged. Apparently, in the intervening time she became stressed again and she received text messages from her previous partner, a woman named Wendi, telling her that she should go ahead and kill herself. The patient is quoted as saying "I'm not able to talk to my mom when I feel like killing myself." Apparently, she has not been taking medications since her last discharge from [facility] on the 06 of April, stating that this is because she is fearful that if she fills her medications, she will promptly overdose on them. The patient arrived seeking admission. She states that she wants referral to an assisted living program or perhaps the [facility], stating that she cannot trust herself in the community. She is well-known to the Behavioral Science Unit and was actually presenting as slightly more stable this time by virtue of her being in behavioral control, not being demanding and having the ability to have a discussion and contributing to treatment planning. The patient was negative for all substances of abuse. For further psychiatric history, please refer to the psychiatric history and physical dictated by Dr. Leo Mesa dated 03/20/2017. CURRENT MENTAL STATUS EXAMINATION: The patient is an obese, young white female wearing green patient scrubs, who has fairly normal hygiene. No evidence of motor disturbance. Her hair is dyed pink and pulled up in a small ponytail on the top of her scalp. She is currently calm and cooperative, eager to come to the Psychiatric Unit. Speech has a normal rate, tone and volume. Mood is depressed and irritable with a somewhat labile affect. Thought process is linear and goal-directed. Thought content is significant for her to desire to be admitted to the Mental Health Unit. She is endorsing suicidal ideations with thoughts of cutting herself. She denies homicidality. She does endorse auditory hallucinations, telling her to abuse herself. She denies visual hallucinations. Insight and judgment are poor given her lack of follow-up with outpatient community resources. Cognitively, she is awake with a somewhat low intellect by virtue of her history of documented intellectual disability as well as her simplistic vocabulary. PHYSICAL EXAMINATION VITAL SIGNS: Blood pressure 119/73, heart rate 103, respiratory rate 17, temperature 98.4 degrees Fahrenheit, oxygen saturations are 98 percent on room air. HEENT: Head is normocephalic, atraumatic. NECK: Supple. RESPIRATORY: Exam is clear to auscultation. CARDIOVASCULAR: Exam reveals normal pulses and normal heart sounds. ABDOMEN: Soft, obese and nontender. MUSCULOSKELETAL: Exam reveals a full range of motion in all four extremities. NEUROLOGIC: She is grossly intact with no focal deficits. SKIN: Warm and dry. LABORATORY DATA: Complete blood count is within normal limits, as is her complete metabolic panel. TSH is normal at 1.53. Serum test is negative. Urine drug screen is negative for all substances tested. DIAGNOSES: AXIS I: Unspecified mood disorder; posttraumatic stress disorder by history. AXIS II: Borderline personality disorder; borderline intellectual functioning. AXIS III: Hypertension. AXIS IV: Severe, housing and primary support stressors AXIS V: At this time is 40. IMPRESSION: The patient is a 26-year-old, single, homosexual, white female with a history of borderline personality disorder, PTSD, and borderline intellectual functioning with numerous recent admissions to the Behavioral Science Unit who was most recently discharged on 04/06/2017, who now returns to the emergency room having cut herself the day prior and now complaining of thoughts of overdosing or perhaps cutting herself again. The patient is on the waiting list for supportive housing in the community through the [facility] and until then she is forced to stay with her mother who has psychiatric issues of her own. We have tried numerous times to admit this patient to a longer term state psychiatric facility; however, they have consistently declined her. Until she has more stable housing, my fear is that she will continue to bounce in and out of our emergency room and psychiatric unit. PLAN: The patient is admitted to the Adult Behavioral Health Unit. She already received a 150 mg dose of Haldol Decanoate IM on Sunday, March 27 ; her next injection is not due until April 24. We will continue Olanzapine 5 mg twice daily, as well as Fluoxetine 20 mg twice daily. Next time she is discharged, I think we will call the pharmacy and have them only release the medication in one week allotments; this should take care of the safety concerns. We will also be contacting [place] to see where she is in terms of the line for supported housing. [id number]/[facility] #: [id number] NEIL
[2017-04-13] MEDS: OLANzapine TAB* 5 MG PO SCH (08:10)
[2017-04-13] MEDS: Nicotine GUM* 2 MG PO PRN ×7 (08:10→20:14)
[2017-04-13] MEDS: FLUoxetine CAP* 20 MG PO SCH (08:10)
[2017-04-13] MEDS: Acetaminophen TAB* 325 MG PO PRN (09:21)
[2017-04-13] MEDS: Nicotine Inhaler* 10 MG AMP INH PRN ×3 (10:22→18:45)
--- NOTE | 2017-04-13 16:08 | PN ---
Subjective - Subjective Service Type: 17928 Hosp care 15 min low complexity Subjective: Patient continues to be anxious and needy, often requesting prn haldol and Benadryl. Afraid she will overdose if discharged. Pacing hallways but adhering to behavioral contract. Objective - Appearance Appearance: Well Developed/Nourished, Obese Dysmorphic Features: No Hygiene: Normal Grooming: Fairly Well Kept - Behavior Psychomotor Activities: Abnormal-Increased Exhibits Abnormal Movement: No - Attitude and Relatedness Attitude and Relatedness: Needy Eye Contact: Fair - Speech Quality: Unpressured Latencies: Normal Quantity: Appropriate - Mood Patient's Decription of Mood: "Anxious" - Affect Observed Affect: Constricted Affect Consistent with: Dysphoria - Thought Process Patient's Thought Process: Goal Directed Thought Content: Yes Suicidal Planning, No Passive Wish, No Homicidal Ideation, No Paranoid Ideation - Sensorium Experiencing Hallucinations: No, Sensorium is Clear Type of Hallucinations: Visual: No, Auditory: No, Command: No - Level of Consciousness Level of Consciousness: Alert Orientation: Yes Intact, Yes Orientated to Time, Yes Orientated to Place, Yes Orientated to Person - Impulse Control Impulse Control: Poor - Insight and Judgement Insight and Judgement: Impaired - Group Participation Particating in Group Activities: No - Medication Management Medication Management Adherence: Yes Assessment - Assessment Merits Inpatient Hospitalization: For Immediate Safety, For Stabilization Inpatient DSM-IV Dx: Unspecified Mood DO Clinical Impression: 26 y.o. single, homosexual white female with a history of borderline personality disorder, intellectual disability, affective instability and psychosis and a pattern of chronic over-utilization of Emergency and inpatient psychiatric services, admitted for SI with plan to cut herself or OD on meds. Plan - Plan Treatment Plan: Name: FILOMENA WILKINSON Birthdate: 1990 [id number] We have hooked her up with supportive housing through [facility] and she is now on their waiting list. She is on Haldol Dec 150mg (03/28/17), olanzapine, fluoxetine and prn Haldol. Awaits placement considerations. Continued Medication Management: Continue Outpt Medication Medications: Current Medications Acetaminophen (Tylenol Tab*) 650 mg PO Q4H PRN PRN Reason: for pain; or Temp >101 F Last Admin: 04/13/17 09:21 Dose: 650 mg Al Hydrox/Mg Hydrox/Simethicone (Maalox Plus*) 30 ml PO Q4H PRN PRN Reason: INDIGESTION Last Admin: 04/12/17 10:09 Dose: 30 ml Diphenhydramine HCl (Benadryl Po*) 50 mg PO Q6H PRN PRN Reason: AGITATION/ANXIETY/INSOMNIA Fluoxetine HCl (Prozac Cap*) 20 mg PO BID [facility] Last Admin: 04/13/17 08:10 Dose: 20 mg Haloperidol (Haldol Tab*) 5 mg PO Q6H PRN PRN Reason: AGITATION/ANXIETY/INSOMNIA Last Admin: 04/11/17 16:21 Dose: 5 mg Nicotine (Nicotine Inhaler*) 10 mg INH Q2H PRN PRN Reason: CRAVING Last Admin: 04/13/17 14:10 Dose: 10 mg Nicotine Polacrilex (Nicotine Gum*) 2 mg PO Q2H PRN PRN Reason: CRAVING Last Admin: 04/13/17 14:11 Dose: 2 mg Olanzapine (Zyprexa Tab*) 5 mg PO BID [facility] Last Admin: 04/13/17 08:10 Dose: 5 mg - Discharge Plan Discharge Plan: Inpatient Hospitalization
[2017-04-13] MEDS: diPHENhydraMINE PO* 50 MG PO PRN (16:13)
[2017-04-13] MEDS: Haloperidol TAB* 5 MG PO PRN (16:14)
[2017-04-14] MEDS: Nicotine GUM* 2 MG PO PRN ×8 (00:50→23:20)
[2017-04-14] MEDS: FLUoxetine CAP* 20 MG PO SCH ×3 (00:50→22:10)
[2017-04-14] MEDS: OLANzapine TAB* 5 MG PO SCH ×3 (00:50→22:10)
[2017-04-14] MEDS: Nicotine Inhaler* 10 MG AMP INH PRN ×4 (11:38→23:20)
[2017-04-14] MEDS ORDERED: Ketorolac TAB * 10 MG TAB PO ONE (14:30)
--- NOTE | 2017-04-14 15:57 | PN ---
<YarielRaquel - Last Filed: 04/14/17 16:17> Subjective - Subjective Subjective: Patient found pacing the halls and c/o abdominal pain stating she last urinated 04/13/17, 10pm, wants Toradol for pain. She is irritable. Denies suicidal ideation or SIB. States she has been awake sine 2:30am. Objective - Appearance Appearance: Well Developed/Nourished, Obese Dysmorphic Features: No Hygiene: Normal Grooming: Fairly Well Kept - Behavior Psychomotor Activities: Abnormal-Increased Exhibits Abnormal Movement: No - Attitude and Relatedness Attitude and Relatedness: Minimally Cooperative Eye Contact: Poor - Speech Quality: Unpressured Latencies: Normal Quantity: Appropriate Assessment - Assessment Merits Inpatient Hospitalization: For Stabilization Inpatient DSM-IV Dx: Unspecified Mood DO Clinical Impression: Alert and oriented x3. Denies suicidal ideation or SIB. She appears physically uncomfortable, lower abdomen is distended. Plan - Plan Treatment Plan: Name: FILOMENA WILKINSON Birthdate: 1990 [id number] Continued Medication Management: Start Medication Medications: Current Medications Acetaminophen (Tylenol Tab*) 650 mg PO Q4H PRN PRN Reason: for pain; or Temp >101 F Last Admin: 04/13/17 09:21 Dose: 650 mg Al Hydrox/Mg Hydrox/Simethicone (Maalox Plus*) 30 ml PO Q4H PRN PRN Reason: INDIGESTION Last Admin: 04/12/17 10:09 Dose: 30 ml Diphenhydramine HCl (Benadryl Po*) 50 mg PO Q6H PRN PRN Reason: AGITATION/ANXIETY/INSOMNIA Last Admin: 04/13/17 16:13 Dose: 50 mg Fluoxetine HCl (Prozac Cap*) 20 mg PO BID [facility] Last Admin: 04/14/17 11:07 Dose: 20 mg Haloperidol (Haldol Tab*) 5 mg PO Q6H PRN PRN Reason: AGITATION/ANXIETY/INSOMNIA Last Admin: 04/13/17 16:14 Dose: 5 mg Nicotine (Nicotine Inhaler*) 10 mg INH Q2H PRN PRN Reason: CRAVING Last Admin: 04/14/17 15:09 Dose: 10 mg Nicotine Polacrilex (Nicotine Gum*) 2 mg PO Q2H PRN PRN Reason: CRAVING Last Admin: 04/14/17 15:10 Dose: 2 mg Olanzapine (Zyprexa Tab*) 5 mg PO BID [facility] Last Admin: 04/14/17 11:07 Dose: 5 mg - Discharge Plan Discharge Plan: Consider Longer Term Tx <MosheLeo - Last Filed: 04/14/17 17:08> Plan - Plan Treatment Plan: Name: FILOMENA WILKINSON Birthdate: 1990 [id number] Medications: Current Medications Acetaminophen (Tylenol Tab*) 650 mg PO Q4H PRN PRN Reason: for pain; or Temp >101 F Last Admin: 04/13/17 09:21 Dose: 650 mg Al Hydrox/Mg Hydrox/Simethicone (Maalox Plus*) 30 ml PO Q4H PRN PRN Reason: INDIGESTION Last Admin: 04/12/17 10:09 Dose: 30 ml Diphenhydramine HCl (Benadryl Po*) 50 mg PO Q6H PRN PRN Reason: AGITATION/ANXIETY/INSOMNIA Last Admin: 04/13/17 16:13 Dose: 50 mg Fluoxetine HCl (Prozac Cap*) 20 mg PO BID [facility] Last Admin: 04/14/17 11:07 Dose: 20 mg Haloperidol (Haldol Tab*) 5 mg PO Q6H PRN PRN Reason: AGITATION/ANXIETY/INSOMNIA Last Admin: 04/13/17 16:14 Dose: 5 mg Nicotine (Nicotine Inhaler*) 10 mg INH Q2H PRN PRN Reason: CRAVING Last Admin: 04/14/17 15:09 Dose: 10 mg Nicotine Polacrilex (Nicotine Gum*) 2 mg PO Q2H PRN PRN Reason: CRAVING Last Admin: 04/14/17 15:10 Dose: 2 mg Olanzapine (Zyprexa Tab*) 5 mg PO BID [facility] Last Admin: 04/14/17 11:07 Dose: 5 mg
[2017-04-14] MEDS: Acetaminophen TAB* 325 MG PO PRN ×2 (19:11→23:41)
[2017-04-14] MEDS: diPHENhydraMINE PO* 50 MG PO PRN (22:10)
[2017-04-14] MEDS: Haloperidol TAB* 5 MG PO PRN (22:10)
[2017-04-15] MEDS ORDERED: Ketorolac TAB * 10 MG TAB PO ONE ×2 (00:25→14:00)
[2017-04-15] MEDS: OLANzapine TAB* 5 MG PO SCH ×2 (10:40→21:57)
[2017-04-15] MEDS: Nicotine GUM* 2 MG PO PRN ×7 (10:40→21:56)
[2017-04-15] MEDS: FLUoxetine CAP* 20 MG PO SCH ×2 (10:40→21:57)
[2017-04-15] MEDS: Acetaminophen TAB* 325 MG PO PRN ×2 (13:01→18:58)
[2017-04-15] MEDS: Nicotine Inhaler* 10 MG AMP INH PRN (17:49)
[2017-04-16] MEDS: Nicotine GUM* 2 MG PO PRN ×7 (07:40→19:17)
[2017-04-16] MEDS: FLUoxetine CAP* 20 MG PO SCH ×2 (08:33→22:08)
[2017-04-16] MEDS: OLANzapine TAB* 5 MG PO SCH ×2 (08:33→22:08)
[2017-04-16] MEDS: Nicotine Inhaler* 10 MG AMP INH PRN ×3 (08:33→19:12)
[2017-04-16] MEDS: Acetaminophen TAB* 325 MG PO PRN (09:53)
--- NOTE | 2017-04-16 13:03 | PN ---
Subjective - Subjective Service Type: 48844 Hosp care 15 min low complexity Subjective: Patient pacing hallways. Acts out at times but denies SI today. Patient c/o abdominal pain. Objective - Appearance Appearance: Obese Dysmorphic Features: No Hygiene: Normal Grooming: Fairly Well Kept - Behavior Psychomotor Activities: Abnormal-Increased Exhibits Abnormal Movement: No - Attitude and Relatedness Attitude and Relatedness: Child Like Eye Contact: Fair - Speech Quality: Unpressured Latencies: Normal Quantity: Appropriate - Mood Patient's Decription of Mood: "Anxious" - Affect Observed Affect: Tense Affect Consistent with: Dysphoria - Thought Process Patient's Thought Process: Coherent Thought Content: No Passive Wish, No Suicidal Planning, No Homicidal Ideation, No Paranoid Ideation - Sensorium Experiencing Hallucinations: No, Sensorium is Clear Type of Hallucinations: Visual: No, Auditory: No, Command: No - Level of Consciousness Level of Consciousness: Alert Orientation: Yes Intact, Yes Orientated to Time, Yes Orientated to Place, Yes Orientated to Person - Impulse Control Impulse Control: Tenuous - Insight and Judgement Insight and Judgement: Fair - Group Participation Particating in Group Activities: No - Medication Management Medication Management Adherence: Yes Assessment - Assessment Merits Inpatient Hospitalization: For Immediate Safety, For Stabilization Inpatient DSM-IV Dx: Unspecified Mood DO Clinical Impression: 26 y.o. single, homosexual white female with a history of borderline personality disorder, intellectual disability, affective instability and psychosis and a pattern of chronic over-utilization of Emergency and inpatient psychiatric services, admitted for SI with plan to cut herself or OD on meds. Plan - Plan Treatment Plan: Name: FILOMENA WILKINSON Birthdate: 1990 [id number] The patient is anxious and pacing but in behavioral control. We have hooked her up with supportive housing through [facility] and she is now on their waiting list. She is on Haldol Dec 150mg (03/28/17), olanzapine, fluoxetine and prn Haldol. Awaits placement considerations. Continued Medication Management: Continue Outpt Medication Medications: Current Medications Al Hydrox/Mg Hydrox/Simethicone (Maalox Plus*) 30 ml PO Q4H PRN PRN Reason: INDIGESTION Last Admin: 04/12/17 10:09 Dose: 30 ml Diphenhydramine HCl (Benadryl Po*) 50 mg PO Q6H PRN PRN Reason: AGITATION/ANXIETY/INSOMNIA Last Admin: 04/14/17 22:10 Dose: 50 mg Fluoxetine HCl (Prozac Cap*) 20 mg PO BID [facility] Last Admin: 04/16/17 08:33 Dose: 20 mg Haloperidol (Haldol Tab*) 5 mg PO Q6H PRN PRN Reason: AGITATION/ANXIETY/INSOMNIA Last Admin: 04/14/17 22:10 Dose: 5 mg Ibuprofen (Motrin Tab*) 800 mg PO Q8H PRN PRN Reason: PAIN Nicotine (Nicotine Inhaler*) 10 mg INH Q2H PRN PRN Reason: CRAVING Last Admin: 04/16/17 08:33 Dose: 10 mg Nicotine Polacrilex (Nicotine Gum*) 2 mg PO Q2H PRN PRN Reason: CRAVING Last Admin: 04/16/17 11:33 Dose: 2 mg Olanzapine (Zyprexa Tab*) 5 mg PO BID [facility] Last Admin: 04/16/17 08:33 Dose: 5 mg - Discharge Plan Discharge Plan: Inpatient Hospitalization
[2017-04-16] MEDS: Ibuprofen TAB* 800 MG PO PRN ×2 (13:04→19:58)
[2017-04-16] MEDS: Nicotine Lozenge* 4 MG LOZENGE MT PRN ×2 (19:58→22:08)
[2017-04-17] MEDS: Haloperidol TAB* 5 MG PO PRN ×2 (03:00→20:41)
[2017-04-17] MEDS: Nicotine Inhaler* 10 MG AMP INH PRN ×4 (03:00→16:47)
[2017-04-17] MEDS: Nicotine Lozenge* 4 MG LOZENGE MT PRN ×8 (03:00→20:28)
[2017-04-17] MEDS: Ibuprofen TAB* 800 MG PO PRN ×2 (03:00→12:16)
[2017-04-17] MEDS: diPHENhydraMINE PO* 50 MG PO PRN ×2 (03:00→20:42)
[2017-04-17] MEDS: FLUoxetine CAP* 20 MG PO SCH ×2 (08:15→20:40)
[2017-04-17] MEDS: OLANzapine TAB* 5 MG PO SCH ×2 (08:15→20:40)
--- NOTE | 2017-04-17 11:12 | PN ---
Subjective - Subjective Service Type: 69343 Hosp care 15 min low complexity Subjective: Patient required catheterization for urinary retention, which is a recurrent problem. She has been anxious and pacing on the unit, asking staff frequently about her housing status. Tells me this morning that she will likely end her own life via overdose if discharged back to her mother's home. She reports tolerating her medications well. Objective - Appearance Appearance: Well Developed/Nourished, Obese Dysmorphic Features: No Hygiene: Normal Grooming: Fairly Well Kept - Behavior Psychomotor Activities: Normal Exhibits Abnormal Movement: No - Attitude and Relatedness Attitude and Relatedness: Needy Eye Contact: Fair - Speech Quality: Unpressured Latencies: Normal Quantity: Terse - Mood Patient's Decription of Mood: "Anxious" - Affect Observed Affect: Tense Affect Consistent with: Dysphoria - Thought Process Patient's Thought Process: Goal Directed Thought Content: Yes Suicidal Planning, No Passive Wish, No Homicidal Ideation, No Paranoid Ideation - Sensorium Experiencing Hallucinations: No, Sensorium is Clear Type of Hallucinations: Visual: No, Auditory: No, Command: No - Level of Consciousness Level of Consciousness: Alert Orientation: Yes Intact, Yes Orientated to Time, Yes Orientated to Place, Yes Orientated to Person - Impulse Control Impulse Control: Poor - Insight and Judgement Insight and Judgement: Impaired - Group Participation Particating in Group Activities: No - Medication Management Medication Management Adherence: Yes Assessment - Assessment Merits Inpatient Hospitalization: For Immediate Safety, For Stabilization Inpatient DSM-IV Dx: Unspecified Mood DO Clinical Impression: 26 y.o. single, homosexual white female with a history of borderline personality disorder, intellectual disability, affective instability and psychosis and a pattern of chronic over-utilization of Emergency and inpatient psychiatric services, admitted for SI with plan to cut herself or OD on meds. Plan - Plan Treatment Plan: Name: FILOMENA WILKINSON Birthdate: 1990 [id number] The patient is anxious and pacing but in behavioral control. We have hooked her up with supportive housing through [email or web address] and she is now on their waiting list. She is on Haldol Dec 150mg (03/28/17), olanzapine, fluoxetine and prn Haldol. Awaits placement considerations. Continued Medication Management: Continue Outpt Medication Medications: Current Medications Al Hydrox/Mg Hydrox/Simethicone (Maalox Plus*) 30 ml PO Q4H PRN PRN Reason: INDIGESTION Last Admin: 04/12/17 10:09 Dose: 30 ml Diphenhydramine HCl (Benadryl Po*) 50 mg PO Q6H PRN PRN Reason: AGITATION/ANXIETY/INSOMNIA Last Admin: 04/17/17 03:00 Dose: 50 mg Fluoxetine HCl (Prozac Cap*) 20 mg PO BID [facility] Last Admin: 04/17/17 08:15 Dose: 20 mg Haloperidol (Haldol Tab*) 5 mg PO Q6H PRN PRN Reason: AGITATION/ANXIETY/INSOMNIA Last Admin: 04/17/17 03:00 Dose: 5 mg Ibuprofen (Motrin Tab*) 800 mg PO Q8H PRN PRN Reason: PAIN Last Admin: 04/17/17 03:00 Dose: 800 mg Nicotine (Nicotine Inhaler*) 10 mg INH Q2H PRN PRN Reason: CRAVING Last Admin: 04/17/17 08:15 Dose: 10 mg Nicotine Polacrilex (Nicotine Lozenge*) 4 mg MT Q2H PRN PRN Reason: CRAVINGS Last Admin: 04/17/17 10:29 Dose: 4 mg Olanzapine (Zyprexa Tab*) 5 mg PO BID [facility] Last Admin: 04/17/17 08:15 Dose: 5 mg - Discharge Plan Discharge Plan: Inpatient Hospitalization
[2017-04-18] MEDS: Nicotine Inhaler* 10 MG AMP INH PRN ×4 (07:56→18:56)
[2017-04-18] MEDS: Nicotine Lozenge* 4 MG LOZENGE MT PRN ×4 (07:56→21:18)
[2017-04-18] MEDS: OLANzapine TAB* 5 MG PO SCH ×2 (09:42→20:48)
[2017-04-18] MEDS: FLUoxetine CAP* 20 MG PO SCH ×2 (09:42→20:48)
[2017-04-18] MEDS: Ibuprofen TAB* 800 MG PO PRN ×2 (09:44→19:35)
[2017-04-18] MEDS: Al Hydrox/Mg Hydrox/Simet LIQ* 30 ML UDC PO PRN (11:12)
--- NOTE | 2017-04-18 11:31 | PN ---
Subjective - Subjective Service Type: 12095 Hosp care 15 min low complexity Subjective: Patient continues to pace and display anxiety, mostly related to her housing status. She is intrusive and requires frequent redirection from staff to adhere to appropriate boundaries with peers and care providers. She tells me that she will OD on medications if discharged back to her mother's home. Objective - Appearance Appearance: Obese Dysmorphic Features: No Hygiene: Normal Grooming: Fairly Well Kept - Behavior Psychomotor Activities: Abnormal-Increased Exhibits Abnormal Movement: No - Attitude and Relatedness Attitude and Relatedness: Needy Eye Contact: Fair - Speech Quality: Unpressured Latencies: Normal Quantity: Appropriate - Mood Patient's Decription of Mood: "Anxious" - Affect Observed Affect: Tense Affect Consistent with: Dysphoria - Thought Process Patient's Thought Process: Goal Directed Thought Content: Yes Suicidal Planning, No Passive Wish, No Homicidal Ideation, No Paranoid Ideation - Sensorium Experiencing Hallucinations: No, Sensorium is Clear Type of Hallucinations: Visual: No, Auditory: No, Command: No - Level of Consciousness Level of Consciousness: Alert Orientation: Yes Intact, Yes Orientated to Time, Yes Orientated to Place, Yes Orientated to Person - Impulse Control Impulse Control: Poor - Insight and Judgement Insight and Judgement: Impaired - Group Participation Particating in Group Activities: No - Medication Management Medication Management Adherence: Yes Assessment - Assessment Merits Inpatient Hospitalization: For Immediate Safety, For Stabilization Inpatient DSM-IV Dx: Unspecified Mood DO Clinical Impression: 26 y.o. single, homosexual white female with a history of borderline personality disorder, intellectual disability, affective instability and psychosis and a pattern of chronic over-utilization of Emergency and inpatient psychiatric services, admitted for SI with plan to cut herself or OD on meds. Plan - Plan Treatment Plan: Name: FILOMENA WILKINSON Birthdate: 1990 [id number] The patient is anxious and pacing but in behavioral control. We have hooked her up with supportive housing through [facility] and she is now on their waiting list. She is on Haldol Dec 150mg (03/28/17), olanzapine, fluoxetine and prn Haldol. Awaits placement considerations. Continued Medication Management: Continue Outpt Medication Medications: Current Medications Al Hydrox/Mg Hydrox/Simethicone (Maalox Plus*) 30 ml PO Q4H PRN PRN Reason: INDIGESTION Last Admin: 04/18/17 11:12 Dose: 30 ml Diphenhydramine HCl (Benadryl Po*) 50 mg PO Q6H PRN PRN Reason: AGITATION/ANXIETY/INSOMNIA Last Admin: 04/17/17 20:42 Dose: 50 mg Fluoxetine HCl (Prozac Cap*) 20 mg PO BID [facility] Last Admin: 04/18/17 09:42 Dose: 20 mg Haloperidol (Haldol Tab*) 5 mg PO Q6H PRN PRN Reason: AGITATION/ANXIETY/INSOMNIA Last Admin: 04/17/17 20:41 Dose: 5 mg Ibuprofen (Motrin Tab*) 800 mg PO Q8H PRN PRN Reason: PAIN Last Admin: 04/18/17 09:44 Dose: 800 mg Nicotine (Nicotine Inhaler*) 10 mg INH Q2H PRN PRN Reason: CRAVING Last Admin: 04/18/17 07:56 Dose: 10 mg Nicotine Polacrilex (Nicotine Lozenge*) 4 mg MT Q2H PRN PRN Reason: CRAVINGS Last Admin: 04/18/17 10:15 Dose: 4 mg Olanzapine (Zyprexa Tab*) 5 mg PO BID [facility] Last Admin: 04/18/17 09:42 Dose: 5 mg - Discharge Plan Discharge Plan: Inpatient Hospitalization
[2017-04-18] MEDS: Nicotine GUM* 2 MG PO PRN ×4 (15:37→21:14)
[2017-04-18] MEDS: Benzocaine/Menthol LOZ* 1 LOZENGE PO PRN ×2 (18:55→21:14)
[2017-04-18] MEDS: diPHENhydraMINE PO* 50 MG PO PRN (20:48)
[2017-04-18] MEDS: Haloperidol TAB* 5 MG PO PRN (20:48)
[2017-04-19] MEDS: Nicotine GUM* 2 MG PO PRN ×6 (07:18→20:32)
[2017-04-19] MEDS ORDERED: Mouth Piece, Nicotine* 1 EACH CARTRIDGE ONE (07:18)
[2017-04-19] MEDS: Nicotine Inhaler* 10 MG AMP INH PRN ×3 (07:18→19:26)
[2017-04-19] MEDS: OLANzapine TAB* 5 MG PO SCH ×2 (08:17→21:48)
[2017-04-19] MEDS: FLUoxetine CAP* 20 MG PO SCH ×2 (08:17→21:48)
[2017-04-19] MEDS: Ibuprofen TAB* 800 MG PO PRN (10:39)
[2017-04-19] MEDS: Nicotine Lozenge* 4 MG LOZENGE MT PRN ×5 (11:18→19:26)
--- NOTE | 2017-04-19 13:16 | PN ---
Subjective - Subjective Service Type: 78711 Hosp care 15 min low complexity Subjective: Patient had a tough day yesterday, as she was pacing and demanding to be let out of the hospital. Staff notes indicate "Pt. was yelling at staff, making threats toward others and to self harm." Today she remains anxious and fixated on discharge but cannot give a safe discharge plan. She denies SI at this time. Objective - Appearance Appearance: Obese Dysmorphic Features: No Hygiene: Normal Grooming: Fairly Well Kept - Behavior Psychomotor Activities: Normal Exhibits Abnormal Movement: No - Attitude and Relatedness Attitude and Relatedness: Needy Eye Contact: Fair - Speech Quality: Unpressured Latencies: Normal Quantity: Terse - Mood Patient's Decription of Mood: "Anxious" - Affect Observed Affect: Tense Affect Consistent with: Dysphoria - Thought Process Patient's Thought Process: Coherent Thought Content: No Passive Wish, No Suicidal Planning, No Homicidal Ideation, No Paranoid Ideation - Sensorium Experiencing Hallucinations: No, Sensorium is Clear Type of Hallucinations: Visual: No, Auditory: No, Command: No - Level of Consciousness Level of Consciousness: Alert Orientation: Yes Intact, Yes Orientated to Time, Yes Orientated to Place, Yes Orientated to Person - Impulse Control Impulse Control: Poor - Insight and Judgement Insight and Judgement: Impaired - Group Participation Particating in Group Activities: No - Medication Management Medication Management Adherence: Yes Assessment - Assessment Merits Inpatient Hospitalization: For Immediate Safety, For Stabilization Inpatient DSM-IV Dx: Unspecified Mood DO Clinical Impression: 26 y.o. single, homosexual white female with a history of borderline personality disorder, intellectual disability, affective instability and psychosis and a pattern of chronic over-utilization of Emergency and inpatient psychiatric services, admitted for SI with plan to cut herself or OD on meds. Plan - Plan Treatment Plan: Name: FILOMENA WILKINSON Birthdate: 1990 [id number] The patient is anxious and pacing but in behavioral control. We have hooked her up with supportive housing through [facility] and she is now on their waiting list. She is on Haldol Dec 150mg (03/28/17), olanzapine, fluoxetine and prn Haldol. Awaits placement considerations. Continued Medication Management: Continue Outpt Medication Medications: Current Medications Al Hydrox/Mg Hydrox/Simethicone (Maalox Plus*) 30 ml PO Q4H PRN PRN Reason: INDIGESTION Last Admin: 04/18/17 11:12 Dose: 30 ml Diphenhydramine HCl (Benadryl Po*) 50 mg PO Q6H PRN PRN Reason: AGITATION/ANXIETY/INSOMNIA Last Admin: 04/18/17 20:48 Dose: 50 mg Fluoxetine HCl (Prozac Cap*) 20 mg PO BID [facility] Last Admin: 04/19/17 08:17 Dose: 20 mg Haloperidol (Haldol Tab*) 5 mg PO Q6H PRN PRN Reason: AGITATION/ANXIETY/INSOMNIA Last Admin: 04/18/17 20:48 Dose: 5 mg Ibuprofen (Motrin Tab*) 800 mg PO Q8H PRN PRN Reason: PAIN Last Admin: 04/19/17 10:39 Dose: 800 mg Nicotine (Nicotine Inhaler*) 10 mg INH Q2H PRN PRN Reason: CRAVING Last Admin: 04/19/17 07:18 Dose: 10 mg Nicotine Polacrilex (Nicotine Lozenge*) 4 mg MT Q2H PRN PRN Reason: CRAVINGS Last Admin: 04/19/17 11:18 Dose: 4 mg Nicotine Polacrilex (Nicotine Gum*) 2 mg PO Q2H PRN PRN Reason: NICOTINE CRAVINGS Last Admin: 04/19/17 10:39 Dose: 2 mg Olanzapine (Zyprexa Tab*) 5 mg PO BID [facility] Last Admin: 04/19/17 08:17 Dose: 5 mg Throat Lozenges (Chloraseptic Ian*) 1 ian PO Q2H PRN PRN Reason: COUGH Last Admin: 04/18/17 21:14 Dose: 1 ian - Discharge Plan Discharge Plan: Inpatient Hospitalization
[2017-04-19] MEDS: Haloperidol TAB* 5 MG PO PRN (16:26)
[2017-04-20] MEDS: OLANzapine TAB* 5 MG PO SCH ×2 (08:22→21:40)
[2017-04-20] MEDS: Nicotine Lozenge* 4 MG LOZENGE MT PRN ×6 (08:22→21:39)
[2017-04-20] MEDS: Nicotine GUM* 2 MG PO PRN ×7 (08:22→20:24)
[2017-04-20] MEDS: Nicotine Inhaler* 10 MG AMP INH PRN ×5 (08:22→17:25)
[2017-04-20] MEDS: FLUoxetine CAP* 20 MG PO SCH ×2 (08:22→21:40)
[2017-04-20] MEDS ORDERED: Haloperidol TAB* 5 MG PO ONE (11:55)
[2017-04-20] MEDS ORDERED: diPHENhydraMINE PO* 50 MG PO ONE (11:55)
[2017-04-20] MEDS ORDERED: LORazepam TAB(*) 1 MG PO ONE (11:55)
[2017-04-20] MEDS ORDERED: LORazepam INJ* 2 MG/ML 1 ML VIAL ONE (11:59)
[2017-04-20] MEDS ORDERED: Haloperidol INJ IV/IM* 5 MG/ML AMP ONE (12:00)
[2017-04-20] MEDS ORDERED: diPHENhydraMINE IV* 50 MG/ML 1 ml VIAL (BENADRYL) ONE (12:00)
[2017-04-20] MEDS ORDERED: LORazepam TAB(*) 1 MG ONE (12:08)
[2017-04-20] MEDS ORDERED: diPHENhydraMINE PO* 25 MG ONE (12:09)
[2017-04-20] MEDS: Haloperidol TAB* 5 MG PO PRN (12:17)
--- NOTE | 2017-04-20 14:38 | PN ---
Subjective - Subjective Service Type: 12193 Hosp care 15 min low complexity Subjective: The patient is anxious and hostile, pacing halls threatening to harm herself if not discharged. Patient required prn medication and staff encouragement to recompensate. Objective - Appearance Appearance: Obese Dysmorphic Features: No Hygiene: Normal Grooming: Fairly Well Kept - Behavior Psychomotor Activities: Abnormal-Increased Exhibits Abnormal Movement: No - Attitude and Relatedness Attitude and Relatedness: Regressed Eye Contact: Fair - Speech Quality: Pressured Latencies: Normal Quantity: Terse - Mood Patient's Decription of Mood: "Anxious" - Affect Observed Affect: Labile Affect Consistent with: Dysphoria - Thought Process Patient's Thought Process: Coherent Thought Content: Yes Suicidal Planning, No Passive Wish, No Homicidal Ideation, No Paranoid Ideation - Sensorium Experiencing Hallucinations: No, Sensorium is Clear Type of Hallucinations: Visual: No, Auditory: No, Command: No - Level of Consciousness Level of Consciousness: Alert Orientation: Yes Intact, Yes Orientated to Time, Yes Orientated to Place, Yes Orientated to Person - Impulse Control Impulse Control: Poor - Insight and Judgement Insight and Judgement: Impaired - Group Participation Particating in Group Activities: No - Medication Management Medication Management Adherence: Yes Assessment - Assessment Merits Inpatient Hospitalization: For Immediate Safety, For Stabilization Inpatient DSM-IV Dx: Unspecified Mood DO Clinical Impression: 26 y.o. single, homosexual white female with a history of borderline personality disorder, intellectual disability, affective instability and psychosis and a pattern of chronic over-utilization of Emergency and inpatient psychiatric services, admitted for SI with plan to cut herself or OD on meds. Plan - Plan Treatment Plan: Name: FILOMENA WILKINSON Birthdate: 1990 [id number] The patient is anxious and pacing but in behavioral control. We have hooked her up with supportive housing through [facility] and she is now on their waiting list. She is on Haldol Dec 150mg (03/28/17), olanzapine, fluoxetine and prn Haldol. Will add topiramate 50mg PO BID. Awaits placement considerations. Continued Medication Management: Continue Outpt Medication Medications: Current Medications Al Hydrox/Mg Hydrox/Simethicone (Maalox Plus*) 30 ml PO Q4H PRN PRN Reason: INDIGESTION Last Admin: 09/06/17 11:12 Dose: 30 ml Diphenhydramine HCl (Benadryl Po*) 50 mg PO Q6H PRN PRN Reason: AGITATION/ANXIETY/INSOMNIA Last Admin: 04/18/17 20:48 Dose: 50 mg Fluoxetine HCl (Prozac Cap*) 20 mg PO BID [facility] Last Admin: 04/20/17 08:22 Dose: 20 mg Haloperidol (Haldol Tab*) 5 mg PO Q6H PRN PRN Reason: AGITATION/ANXIETY/INSOMNIA Last Admin: 04/20/17 12:17 Dose: 5 mg Ibuprofen (Motrin Tab*) 800 mg PO Q8H PRN PRN Reason: PAIN Last Admin: 04/19/17 10:39 Dose: 800 mg Lorazepam (Ativan Tab(*)) 1 mg PO Q6H PRN PRN Reason: ANXIETY Nicotine (Nicotine Inhaler*) 10 mg INH Q2H PRN PRN Reason: CRAVING Last Admin: 04/20/17 12:20 Dose: 10 mg Nicotine Polacrilex (Nicotine Lozenge*) 4 mg MT Q2H PRN PRN Reason: CRAVINGS Last Admin: 04/20/17 12:20 Dose: 4 mg Nicotine Polacrilex (Nicotine Gum*) 2 mg PO Q2H PRN PRN Reason: NICOTINE CRAVINGS Last Admin: 04/20/17 12:20 Dose: 2 mg Olanzapine (Zyprexa Tab*) 5 mg PO BID [facility] Last Admin: 04/20/17 08:22 Dose: 5 mg Throat Lozenges (Chloraseptic Ian*) 1 ian PO Q2H PRN PRN Reason: COUGH Last Admin: 04/18/17 21:14 Dose: 1 ian Topiramate (Topamax(*)) 50 mg PO BID [facility] - Discharge Plan Discharge Plan: Inpatient Hospitalization
[2017-04-20] MEDS: LORazepam TAB(*) 1 MG PO PRN ×2 (15:43→21:39)
[2017-04-20] MEDS: Topiramate TAB(*) 25 MG PO SCH (21:40)
[2017-04-21] MEDS: Topiramate TAB(*) 25 MG PO SCH ×2 (08:15→20:38)
[2017-04-21] MEDS: FLUoxetine CAP* 20 MG PO SCH ×2 (08:15→20:38)
[2017-04-21] MEDS: LORazepam TAB(*) 1 MG PO PRN ×3 (08:15→20:40)
[2017-04-21] MEDS: OLANzapine TAB* 5 MG PO SCH ×2 (08:15→20:38)
[2017-04-21] MEDS: Nicotine GUM* 2 MG PO PRN ×7 (08:17→20:41)
[2017-04-21] MEDS: Nicotine Lozenge* 4 MG LOZENGE MT PRN ×5 (08:35→19:36)
[2017-04-21] MEDS: Nicotine Inhaler* 10 MG AMP INH PRN ×3 (09:25→16:36)
[2017-04-21] MEDS: Haloperidol TAB* 5 MG PO PRN (18:24)
[2017-04-21] MEDS: diPHENhydraMINE PO* 50 MG PO PRN (18:24)
[2017-04-22] MEDS: Topiramate TAB(*) 25 MG PO SCH ×2 (08:19→20:18)
[2017-04-22] MEDS: Nicotine GUM* 2 MG PO PRN ×6 (08:19→19:17)
[2017-04-22] MEDS: LORazepam TAB(*) 1 MG PO PRN ×3 (08:20→20:20)
[2017-04-22] MEDS: OLANzapine TAB* 5 MG PO SCH ×2 (08:20→20:18)
[2017-04-22] MEDS: FLUoxetine CAP* 20 MG PO SCH ×2 (08:20→20:18)
[2017-04-22] MEDS: Nicotine Inhaler* 10 MG AMP INH PRN ×4 (10:31→20:18)
[2017-04-22] MEDS: Nicotine Lozenge* 4 MG LOZENGE MT PRN ×5 (11:46→20:18)
[2017-04-22] MEDS: Benzocaine/Menthol LOZ* 1 LOZENGE PO PRN (13:37)
[2017-04-23] MEDS: Nicotine GUM* 2 MG PO PRN ×4 (06:31→12:40)
[2017-04-23] MEDS: LORazepam TAB(*) 1 MG PO PRN ×2 (06:31→12:33)
[2017-04-23] MEDS: Nicotine Inhaler* 10 MG AMP INH PRN (07:38)
[2017-04-23] MEDS: OLANzapine TAB* 5 MG PO SCH (07:38)
[2017-04-23] MEDS: FLUoxetine CAP* 20 MG PO SCH (07:38)
[2017-04-23] MEDS: Topiramate TAB(*) 25 MG PO SCH (07:38)
[2017-04-23] MEDS: Nicotine Lozenge* 4 MG LOZENGE MT PRN ×3 (07:39→11:41)
[2017-04-23 10:08] VITALS: BP 117/55
[2017-04-23] MEDS ORDERED: Haloperidol Decanoate* 50 MG/ML AMP IM SCH (11:00)
--- NOTE | 2017-04-24 05:28 | DS ---
DISCHARGE SUMMARY: DATE OF ADMISSION: 04/11/17 DATE OF DISCHARGE: 04/23/17 DISCHARGE DIAGNOSES: [place] I: Unspecified mood disorder, posttraumatic stress disorder by history. [place] II: Borderline personality disorder, borderline intellectual functioning. [place] III: Hypertension by history. [place] IV: Severe housing and primary support stressors. [place] V: At the time of admission was 40 and at the time of discharge was 60. CONDITION AT THE TIME OF DISCHARGE: Improved. The patient has been largely under behavioral controls and she has been admitted. We have seen real improvements and she was placed on long-acting Haldol injectable back in March of 2017. She has now received her second dose of this medication and is tolerating it well. She will be returning to live with family, but we do have an acceptance to the [facility] and she is pending an open apartment before she can move in. She has been calm, cooperative, actually going to groups. She has been adhering to the behavioral modification contract , which she signed at the onset of her hospitalization. Furthermore, she is tolerating her medications well. As a further precaution, we have contacted her pharmacy, which is the [facility] on [facility] and gotten them to agree to only dispense her medications one week at a time. This is due to her fears in the past that if she picked up a full 30- day supply, she would have enough to harm herself with an overdose. The patient is agreeable with outpatient treatment at the [facility] and she is telling us that she will utilize her outpatient resources rather than returning to the emergency room when she becomes anxious or stressed. It should be noted, however, that this patient does have incredible impulsivity and some cognitive and intellectual deficits that make her a long-term risk to herself, although we have mitigated the acute risks, she does maintain some chronic risk for self harm. MENTAL STATUS EXAMINATION: At the time of discharge, the patient is an obese, young white female with dyed pink hair wearing a pink shirt and spandex pants with fairly normal hygiene. There is no evidence of motor disturbance. She is currently calm and cooperative. Speech has a normal rate, tone, and volume. Mood is euthymic with a full affect. Thought process is linear and goal directed. Thought content is significant for her desire to be discharged from the hospital. She denies suicidal or homicidal ideations. She denies audio or visual hallucinations. Insight and judgement are fair given her willingness to follow up with outpatient treatment. Cognitively, she is awake and alert with somewhat low intellect by virtue of her documented intellectual disability and her simplistic vocabulary. DISCHARGE INSTRUCTIONS: To the patient are as follows: A. Medications: She takes Haldol decanoate. Her next injection will be due on 05/21/17. In addition, she takes olanzapine 10 mg p.o. q. nightly. She takes Prozac 20 mg p.o. b.i.d. and she takes Topamax 50 mg p.o. b.i.d. Although I have written for a 30-day supply, I have spoken with the outpatient pharmacy, who agrees to only dispense this one week at a time. B. Diet is regular. C. Activities: As tolerated. The patient is a smoker and she is declining the offer of continued nicotine replacement therapy indicating her preference to continue smoking cigarettes for the time being. There are no laboratory or diagnostic studies pending at the time of discharge. D. Followup care: The patient will be seen on , 04/26/17, at the [facility], where she will be receiving close followup in the community. In addition, we have referred her to the [facility] where she has been accepted, but is awaiting apartment availability. [facility] indicates that they will contact the patient when an apartment is available. HOSPITAL COURSE: Part A. Reason for admission: The patient is a 26-year-old, single, white, homosexual female, who has a history of both borderline personality disorder as well as borderline intellectual functioning who is well known to our unit for multiple past admissions to the [facility], who now returns 5 days after her most recent discharge coming in due to suicidal ideations with thoughts of cutting herself. The patient apparently had come in on a 9.45 legal status after calling the [facility] saying she was having thoughts of ending her own life. She had come to the hospital one day prior after cutting herself and at that time required 14 stitches; however, she denied suicidal ideations and was later discharged. In the intervening time , she became stressed again and she received text messages from her previous partner, a woman name Wendi, telling her that she should go ahead and kill herself. The patient is quoted as saying "I am not able to talk to my mom when I feel like killing myself." Apparently, she has not been taking medications since her last discharge from [facility] on 04/06/17 stating that this is because she is fearful that if she were to fill her prescription, she would promptly overdose on the tablets. The patient arrived seeking admission. She states that she wants a referral to an assisted living program perhaps to the [facility] stating that she could not trust herself in the community. She is well known to behavioral science unit professionals and was actually presenting a slightly more stable on this visit by virtue of her being able to contract for behavioral control not being demanding or having tantrums. The patient was negative for all substances of abuse. For further psychiatric history, please refer to the psychiatric history and physical dictated by Dr. Leo Mesa dated 03/20/17. Part B. Psychiatric treatment rendered: The patient was admitted to the adult behavioral health unit where she was placed on q.15-minute checks for her own safety. She was willing to sign a behavioral modification plan, which she adhered to resulting in less restrictions. Eventually, we were able to give her outside privileges and the ability to attend groups, which we usually somewhat restrict her from. We were also able to contact [facility], who indicated that she is one of the top consumers on their list for housing placement; however, nothing was available at this time. The patient showed more behavioral control than her typical presentation. She was able to interact with peers to make friends, to socialize and she was more or less appropriate with some mild outburst that led to p.o. medication administration for agitation. To my knowledge, she never required restraint or IM medications. The patient did come due for her next scheduled Haldol decanoate shot and we did raise the dose slightly from 150 to 175 and this was administered on the day of discharge, which is 04/23/17. Her next shot is not due until 05/21/17. In addition to her olanzapine and fluoxetine, we added Topamax 50 mg p.o. b.i.d. At this time, the patient is functioning at her baseline. She is calm and cooperative and requesting discharge to a less restrictive setting, although she does have some chronic risk for self harm, this is the best that we seen her in quite a while and we wishing her luck in terms of getting into placement through [facility]. [id number]/CPS #: [id number] NEIL
[2017-04-24] MEDS ORDERED: OLANzapine TAB* 10 MG PO SCH (09:00)
== END 2017-04-23 13:15 | disposition home or self-care (01) | DRG 753 ==
LOC: ED 11:32 → BSU 16:09
PROVIDERS: ADMIT Psychiatry & Neurology Psychiatry; ATTEND Psychiatry & Neurology Psychiatry
DX: F39 Unspecified mood [affective] disorder (principal); F50.9 Eating disorder, unspecified; R45.851 Suicidal ideations; F41.0 Panic disorder [episodic paroxysmal anxiety]; F90.9 Attention-deficit hyperactivity disorder, unspecified type; F31.9 Bipolar disorder, unspecified; F43.10 Post-traumatic stress disorder, unspecified; F25.9 Schizoaffective disorder, unspecified; F17.210 Nicotine dependence, cigarettes, uncomplicated; F60.3 Borderline personality disorder; R41.83 Borderline intellectual functioning; F29 Unspecified psychosis not due to a substance or known physiological condition; I10 Essential (primary) hypertension; R33.9 Retention of urine, unspecified; R10.9 Unspecified abdominal pain; E66.9 Obesity, unspecified; Z91.5 Personal history of self-harm; Z91.018 Allergy to other foods; Z88.8 Allergy status to other drugs, medicaments and biological substances; Z88.0 Allergy status to penicillin; Z91.040 Latex allergy status; Z81.8 Family history of other mental and behavioral disorders; Z81.1 Family history of alcohol abuse and dependence; Z72.89 Other problems related to lifestyle; Z68.33 Body mass index [BMI] 33.0-33.9, adult
CPT/HCPCS: 36415; 80053; 80307; 80320; 80329; 84443; 84702; 85025; 99222; 99231; 99406; A9270-GY; G0480; J1200; J1630; J1631; J2060

== ENCOUNTER 2017-04-26 17:40 | Emergency (ER) | payer MEDICAID ==
--- NOTE | 2017-04-26 17:44 | ED ---
Psychiatric Complaint - HPI Summary HPI Summary: Patient presents to the ED stating she overdosed on 100mg zyprexa; 200mg prozac ; 500mg topimax. She states she has done this many times before and they always make her tired. She denies SI/HI, she just wanted the euphoria of many medications to put her to sleep. She denies any self cutting behaviors today. Denies abdominal pain, head pain or extremity pain. She will be a 941 and will be cleared for MHU pending EKG and labs. Denies other pain or symptoms. - History Of Current Complaint Hx Obtained From: Patient Hx Last Menstrual Period: pt states has IUD - no period ?: No Onset/Duration: Sudden Onset Timing: Constant Severity Initially: Moderate Severity Currently: Moderate Character: Depressed Aggravating Factor(s): Nothing Alleviating Factor(s): Nothing Associated Signs And Symptoms: Positive: Sleep Disturbance Related History: Positive For: Prior Psychiatric Issues Ingestion History: Type/Name Of Drug - zyprexa, topimax (see HPI) - Risk Factor(s) Completed Suicide Risk Factors: White [place] <Tasneem Childers - Last Filed: 04/26/17 22:32> <Willam Lyn - Last Filed: 04/29/17 11:25> - History Of Current Complaint Time Seen by Provider: 04/26/17 17:44 - Allergies/Home Medications Allergies/Adverse Reactions: Allergies Allergy/AdvReac Type Severity Reaction Status Date / Time Penicillin V Allergy Severe Hives Verified 04/11/17 22:15 Latex Allergy Intermediate Rash Verified 04/11/17 22:15 Lactose Intolerance (GI) Allergy Diarrhea Verified 04/11/17 22:15 glue Allergy Rash Uncoded 04/11/17 22:15 steri strips Allergy Rash Uncoded 04/11/17 22:15 PMH/Surg Hx/FS Hx/Imm Hx Previously Healthy: Yes Endocrine/Hematology History: Reports: Hx Unexplained Bleeding Denies: Hx Anticoagulant Therapy, Hx Blood Disorders, Hx Thyroid Disease, Other Endocrine/Hematological Disorders - borderline diabetic Comment Only: Hx Diabetes - Borderline Cardiovascular History: Denies: Hx Hypertension, Hx Pacemaker/ICD, Other Cardiovascular Problems/ Disorders Respiratory History: Denies: Hx Asthma - patient denied, Hx Chronic Bronchitis, Hx Chronic Obstructive Pulmonary Disease (COPD), Hx Cystic Fibrosis, Hx Lung Cancer, Hx Pleural Effusion, Hx Pneumonia, Hx Pulmonary Edema, Hx Pulmonary Embolism, Hx Seasonal Allergies, Hx Sleep Apnea, Other Respiratory Problems/Disorders GI History: Denies: Hx Ulcer, Other GI Disorders History: Reports: Other Problems/Disorders - Urinary Retention and Herpes Denies: Hx Renal Disease Musculoskeletal History: Denies: Other Musculoskeletal History Sensory History: Reports: Hx Contacts or Glasses Denies: Hx Cataracts, Hx Eye Injury, Hx Eye Prosthesis, Hx Glaucoma, Hx Legally Blind, Hx Macular Degeneration, Hx Deafness, Hx Hearing Aid, Hx Hearing Problem, Other Sensory Impairments Opthamlomology History: Reports: Hx Contacts or Glasses Denies: Hx Cataracts, Hx Eye Injury, Hx Eye Prosthesis, Hx Glaucoma, Hx Legally Blind, Hx Macular Degeneration, Other Sensory Impairments Neurological History: Reports: Hx Developmental Delay, Hx Headaches, Hx Seizures Denies: Hx Dementia, Hx Migraine, Hx Nerve Disease, Hx Spinal Cord Injury, Hx Transient Ischemic Attacks (TIA), Other Neuro Impairments/Disorders Psychiatric History: Reports: Hx Anxiety, Hx Attention Deficit Hyperactivity Disorder, Hx Eating Disorder, Hx Depression, Hx Panic Disorder, Hx Post Traumatic Stress Disorder, Hx Inpatient Treatment, Hx Community Mental Health Tx , Hx Bipolar Disorder, Hx Suicide Attempt, Hx of Violent Episodes Against Others - SEE VIOLENCE HX, Hx Substance Abuse - OD on ativan 03/14/2017, Other Psychiatric Issues/Disorders Comment Only: Hx Schizophrenia - Schizoaffective Disorder - Cancer History Hx Chemotherapy: No Hx Radiation Therapy: No Hx Palliative Cancer Treatment: No - Immunization History Date of Tetanus Vaccine: UTD Date of Influenza Vaccine: Unk Hx Pertussis Vaccination: No Immunizations Up to Date: Unable to Obtain/Confirm Infectious Disease History: 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 - Social History Occupation: Unemployed, Disabled Lives: With Family Alcohol Use: Occasionally Alcohol Amount: "drank beer awhile ago" Hx Substance Use: No Substance Use Type: Reports: None Substance Use Comment - Amount & Last Used: denies substance abuse Hx Tobacco Use: Yes Smoking Status (MU): Current Every Day Smoker Type: Cigarettes Amount Used/How Often: 1 pack per day Length of Time of Smoking/Using Tobacco: 3 years Have You Smoked in the Last Year: Yes <Tasneem Childers - Last Filed: 04/26/17 22:32> Review of Systems Constitutional: Negative Eyes: Negative Cardiovascular: Negative Respiratory: Negative Positive: no symptoms reported, see HPI Musculoskeletal: Negative Neurological: Negative Positive: Anxious, Depressed All Other Systems Reviewed And Are Negative: Yes <Tasneem Childers - Last Filed: 04/26/17 22:32> Physical Exam Triage Information Reviewed: Yes Vital Signs Reviewed: Yes Appearance: Positive: Well-Appearing, Well-Nourished Skin: Positive: Warm, Skin Color Reflects Adequate Perfusion Head/Face: Positive: Normal Head/Face Inspection Eyes: Positive: EOMI, OKSANA, Conjunctiva Clear Neck: Positive: Supple, No Lymphadenopathy Respiratory/Lung Sounds: Positive: Clear to Auscultation, Breath Sounds Present Cardiovascular: Positive: Normal, RRR, Pulses are Symmetrical in both Upper and Lower Extremities Musculoskeletal: Positive: Normal, Strength/ROM Intact Neurological: Positive: Speech Normal Psychiatric: Positive: Depressed, Other - fatigued <Tasneem Childers - Last Filed: 04/26/17 22:32> Vital Signs On Initial Exam: Initial Vitals Temp Pulse Resp BP Pulse Ox 98.8 F 91 16 127/83 99 04/26/17 18:22 04/26/17 18:22 04/26/17 18:22 04/26/17 18:22 04/26/17 18:22 <Willam Lyn - Last Filed: 04/29/17 11:25> Diagnostics - Laboratory Result Diagrams: 04/26/17 18:15 04/26/17 18:15 Lab Statement: Any lab studies that have been ordered have been reviewed, and results considered in the medical decision making process. <Tasneem Childers - Last Filed: 04/26/17 22:32> - Vital Signs Vital Signs Temp Pulse Resp BP Pulse Ox 04/27/17 09:28 98.7 F 83 16 109/72 04/27/17 05:27 97.9 F 71 16 131/73 99 04/27/17 00:05 97.9 F 60 16 154/75 99 04/26/17 18:22 98.8 F 91 16 127/83 99 - Laboratory Lab Results: Lab Results 04/26/17 04/26/17 Range/Units 18:15 18:15 WBC 13.3 H (3.5-10.8) 10^3/ul RBC 4.52 (4.0-5.4) 10^6/ul Hgb 12.8 (12.0-16.0) g/dl Hct 39 (35-47) % MCV 85 (80-97) fL MCH 28 (27-31) pg MCHC 33 (31-36) g/dl RDW 15 (10.5-15) % Plt Count 355 (150-450) 10^3/ul MPV 9 (7.4-10.4) um3 Neut % (Auto) 71.3 (38-83) % Lymph % (Auto) 20.3 L (25-47) % [place] % (Auto) 6.6 (1-9) % Eos % (Auto) 1.1 (0-6) % Baso % (Auto) 0.7 (0-2) % Absolute Neuts (auto) 9.4 H (1.5-7.7) 10^3/ul Absolute Lymphs (auto) 2.7 (1.0-4.8) 10^3/ul Absolute Monos (auto) 0.9 H (0-0.8) 10^3/ul Absolute Eos (auto) 0.2 (0-0.6) 10^3/ul Absolute Basos (auto) 0.1 (0-0.2) 10^3/ul Absolute Nucleated RBC 0 10^3/ul Nucleated RBC % 0 Sodium 138 (133-145) mmol/L Potassium 3.4 L (3.5-5.0) mmol/L Chloride 107 (101-111) mmol/L Carbon Dioxide 23 (22-32) mmol/L Anion Gap 8 (2-11) mmol/L BUN 11 (6-24) mg/dL Creatinine 0.93 (0.51-0.95) mg/dL Est GFR ( Amer) 92.3 (>60) Est GFR (Non-Af Amer) 71.8 (>60) BUN/Creatinine Ratio 11.8 (8-20) Glucose 101 H (70-100) mg/dL Calcium 9.3 (8.6-10.3) mg/dL Total Bilirubin 0.30 (0.2-1.0) mg/dL AST 17 (13-39) U/L ALT 17 (7-52) U/L Alkaline Phosphatase 73 (34-104) U/L Total Protein 7.7 (6.4-8.9) g/dL Albumin 4.4 (3.2-5.2) g/dL Globulin 3.3 (2-4) g/dL Albumin/Globulin Ratio 1.3 (1-3) TSH 1.86 (0.34-5.60) mcIU/mL Salicylates < 2.50 (<30) mg/dL Acetaminophen < 15 mcg/mL Serum Alcohol < 10 (<10) mg/dL Result Diagrams: 04/26/17 18:15 04/26/17 18:15 Lab Statement: Any lab studies that have been ordered have been reviewed, and results considered in the medical decision making process. <Willam Lyn - Last Filed: 04/29/17 11:25> Course/Dx - Course Course Of Treatment: Patient evaluated for OD and psych evaluation. EKG shows NSR with no changes. Labs WNL. Patient is fatigued, but otherwise states she feels fine. She is cleared for MHU at this time. - Differential Dx/Clinical Impression Differential Diagnosis/HQI/PQRI: Positive: Anxiety, Depression, Drug Overdose/ Intentional, Drug Overdose/Unintentional <Tasneem Childers - Last Filed: 04/26/17 22:32> <Willam Lyn - Last Filed: 04/29/17 11:25> - Differential Dx/Clinical Impression Provider Diagnosis: Drug overdose, intentional Discharge <Tasneem Childers - Last Filed: 04/26/17 22:32> <Willam Lyn - Last Filed: 04/29/17 11:25> - Discharge Plan Condition: Stable Disposition: HOME Referrals: [facility] [Outside] Don Love [employer] [facility] [Primary Care Provider] - Additional Instructions: Per completion of a mental health evaluation, you are cleared for release and do not require inpatient psychiatric hospitalization at this time. Please go to nearest emergency room or call 911 if safety concerns arise or condition worsens. IMPORTANT PHONE NUMBERS: [facility] Behavioral Services Unit:~ Suicide Prevention and Crisis Services:~ National Suicide Prevention Lifeline:~ (428) 184-GVBS (0514) [facility]:~ [facility] Outreach for Older Adults:~ Alcoholics Anonymous:~ [facility] Association:~ [facility] Police:~ REFERRALS: [address] [address] You have been referred to [facility]. It is our recommendation that you call [facility] to secure an appointment on their next business day if you do not already have an appointment scheduled. If you require further assistance connecting to outpatient providers, please contact out Mental Health Unit at . Your medications have not been changed or adjusted during this evaluation. Please continue medications as prescribed by your outpatient provider.
[2017-04-26 18:26] LABS: Hematocrit 39 % (35-47); Hemoglobin 12.8 g/dl (12.0-16.0); Mean Corpuscular HGB Conc 33 g/dl (31-36); Mean Corpuscular Hemoglobin 28 pg (27-31); Mean Corpuscular Volume 85 fL (80-97); Mean Platelet Volume 9 um3 (7.4-10.4); Red Blood Count 4.52 10^6/ul (4.0-5.4); Red Cell Distribution Width 15 % (10.5-15); White Blood Count 13.3 10^3/ul (3.5-10.8)
[2017-04-26 19:29] LABS: TSH (Thyroid Stimulating Horm) 1.86 mcIU/mL (0.34-5.60)
[2017-04-26 19:32] LABS: ALT 17 U/L (7-52); AST 17 U/L (13-39); Albumin 4.4 g/dL (3.2-5.2); Alkaline Phosphatase 73 U/L (34-104); Anion Gap 8 mmol/L (2-11); BUN/Creatinine Ratio 11.8 (8-20); Blood Urea Nitrogen 11 mg/dL (6-24); CO2 Carbon Dioxide 23 mmol/L (22-32); Calcium 9.3 mg/dL (8.6-10.3); Chloride 107 mmol/L (101-111); EGFR African American 92.3 (>60); EGFR Non-African American 71.8 (>60); Globulin 3.3 g/dL (2-4); Glucose 101 mg/dL (70-100); Potassium 3.4 mmol/L (3.5-5.0); Sodium 138 mmol/L (133-145); Total Protein 7.7 g/dL (6.4-8.9)
[2017-04-26 19:34] LABS: Acetaminophen < 15 mcg/mL; Alcohol < 10 mg/dL (<10); Salicylate < 2.50 mg/dL (<30)
[2017-04-26] MEDS ORDERED: Nicotine GUM* 2 MG ONE (20:44)
[2017-04-26] MEDS: Nicotine GUM* 2 MG PO PRN (20:46)
[2017-04-27] MEDS: Nicotine GUM* 2 MG PO PRN ×2 (04:29→06:46)
--- NOTE | 2017-04-27 05:24 | ED ---
Progress - Progress Note Progress Note: pt seen by mental health and discharged home in stable condition - Consult/PCP Time Called: 00:00 Course/Dx - Course Course Of Treatment: Patient evaluated for OD and psych evaluation. EKG shows NSR with no changes. Labs WNL. Patient is fatigued, but otherwise states she feels fine. She is cleared for MHU at this time. - Diagnoses Provider Diagnoses: Drug overdose, intentional
[2017-04-27 09:29] VITALS: BP 109/72
== END 2017-04-27 08:31 | disposition home or self-care (01) ==
LOC: ED 17:40
DX: T43.591A Poisoning by other antipsychotics and neuroleptics, accidental (unintentional), initial encounter (principal); T43.221A Poisoning by selective serotonin reuptake inhibitors, accidental (unintentional), initial encounter; F41.8 Other specified anxiety disorders; Y92.9 Unspecified place or not applicable; F17.210 Nicotine dependence, cigarettes, uncomplicated
CPT/HCPCS: 36415; 80053; 80320; 80329; 84443; 85025; 93005; 99285; A9270-GY; G0480

== ENCOUNTER 2017-05-01 09:25 | Inpatient (IN) | payer MEDICAID, OTHER ==
[2017-05-01 10:23] LABS: Add Diff/Slide Review? Slide Review Added; Comments Flag Yes; Hematocrit 40 % (35-47); Hemoglobin 13.5 g/dl (12.0-16.0); Mean Corpuscular HGB Conc 34 g/dl (31-36); Mean Corpuscular Hemoglobin 29 pg (27-31); Mean Corpuscular Volume 86 fL (80-97); Mean Platelet Volume 9 um3 (7.4-10.4); Red Blood Count 4.66 10^6/ul (4.0-5.4); Red Cell Distribution Width 15 % (10.5-15); White Blood Count 12.2 10^3/ul (3.5-10.8)
[2017-05-01] MEDS ORDERED: LORazepam TAB(*) 1 MG PO ONE ×2 (10:25→15:06)
[2017-05-01 10:39] LABS: Urine Bacteria 1+ (Absent); Urine Bilirubin Negative (Negative); Urine Glucose Negative (Negative); Urine Nitrite Negative (Negative)
[2017-05-01 10:40] LABS: ALT 19 U/L (7-52); AST 15 U/L (13-39); Albumin 4.4 g/dL (3.2-5.2); Alkaline Phosphatase 84 U/L (34-104); Anion Gap 8 mmol/L (2-11); BUN/Creatinine Ratio 14.8 (8-20); Benzodiazepine Urine Screen None Detected (None Detect); Blood Urea Nitrogen 13 mg/dL (6-24); CO2 Carbon Dioxide 22 mmol/L (22-32); Calcium 9.6 mg/dL (8.6-10.3); Chloride 107 mmol/L (101-111); EGFR African American 98.4 (>60); EGFR Non-African American 76.5 (>60); Globulin 3.6 g/dL (2-4); Glucose 89 mg/dL (70-100); Potassium 3.8 mmol/L (3.5-5.0); Sodium 137 mmol/L (133-145)
[2017-05-01 11:01] LABS: Acetaminophen < 15 mcg/mL; Alcohol < 10 mg/dL (<10); Salicylate < 2.50 mg/dL (<30)
[2017-05-01 11:12] LABS: TSH (Thyroid Stimulating Horm) 1.06 mcIU/mL (0.34-5.60)
[2017-05-01] MEDS ORDERED: Acetaminophen TAB* 325 MG PO PRN (12:30)
[2017-05-01] MEDS ORDERED: Al Hydrox/Mg Hydrox/Simet LIQ* 30 ML UDC PO PRN (12:30)
[2017-05-01] MEDS ORDERED: Nicotine GUM* 2 MG ONE (15:36)
[2017-05-01] MEDS: Nicotine GUM* 2 MG PO PRN ×2 (15:39→17:45)
[2017-05-01] MEDS: Haloperidol TAB* 5 MG PO PRN (17:51)
[2017-05-01] MEDS: diPHENhydraMINE PO* 50 MG PO PRN (17:52)
--- NOTE | 2017-05-01 18:58 | ED ---
Stacey Lofton Thomas, scribed for Levi Toro MD on 05/01/17 at 1040 . Psychiatric Complaint - HPI Summary HPI Summary: The pt is a 26 y/o F presenting to the ED c/o SI with a plan to jump off a building. She says that voices are telling her to kill herself. Pt additionally c/o decreased appetite (no eating in three days), sleep disturbances (last three days), and auditory hallucinations. There are lacerations to her forearm bilaterally. She says that she cut herself yesterday. Pt denies back pain and abd pain. She says that she is normally on Ativan 1mg, although she is off it at the moment. She says she is currently taking Zyprexa, Topamax, and Prozac. SHx: current smoker, no alcohol use, occasional marijuana use. - History Of Current Complaint Chief Complaint: EDMentalHealth Time Seen by Provider: 05/01/17 10:02 Hx Obtained From: Patient Hx Last Menstrual Period: pt states has IUD - no period Onset/Duration: Still Present Timing: Constant Severity Currently: Severe Character: Anxious Aggravating Factor(s): Nothing Alleviating Factor(s): Nothing Associated Signs And Symptoms: Positive: Hallucinating, Sleep Disturbance, Appetite Change Related History: Positive For: Prior Psychiatric Issues, Drug Abuse Counseling Has Suicidal: Reports: Thoughts, Demonstrates Gesture - Allergies/Home Medications Allergies/Adverse Reactions: Allergies Allergy/AdvReac Type Severity Reaction Status Date / Time Penicillin V Allergy Severe Hives Verified 05/01/17 14:40 Latex Allergy Intermediate Rash Verified 05/01/17 14:40 Lactose Intolerance (GI) Allergy Diarrhea Verified 05/01/17 14:40 glue Allergy Rash Uncoded 05/01/17 14:40 steri strips Allergy Rash Uncoded 05/01/17 14:40 PMH/Surg Hx/FS Hx/Imm Hx Previously Healthy: No Endocrine/Hematology History: Reports: Hx Unexplained Bleeding Denies: Hx Anticoagulant Therapy, Hx Blood Disorders, Hx Thyroid Disease, Other Endocrine/Hematological Disorders - borderline diabetic Comment Only: Hx Diabetes - Borderline Cardiovascular History: Denies: Hx Hypertension, Hx Pacemaker/ICD, Other Cardiovascular Problems/ Disorders Respiratory History: Denies: Hx Asthma - patient denied, Hx Chronic Bronchitis, Hx Chronic Obstructive Pulmonary Disease (COPD), Hx Cystic Fibrosis, Hx Lung Cancer, Hx Pleural Effusion, Hx Pneumonia, Hx Pulmonary Edema, Hx Pulmonary Embolism, Hx Seasonal Allergies, Hx Sleep Apnea, Other Respiratory Problems/Disorders GI History: Denies: Hx Ulcer, Other GI Disorders History: Reports: Other Problems/Disorders - Urinary Retention and Herpes Denies: Hx Renal Disease Musculoskeletal History: Denies: Other Musculoskeletal History Sensory History: Reports: Hx Contacts or Glasses Denies: Hx Cataracts, Hx Eye Injury, Hx Eye Prosthesis, Hx Glaucoma, Hx Legally Blind, Hx Macular Degeneration, Hx Deafness, Hx Hearing Aid, Hx Hearing Problem, Other Sensory Impairments Opthamlomology History: Reports: Hx Contacts or Glasses Denies: Hx Cataracts, Hx Eye Injury, Hx Eye Prosthesis, Hx Glaucoma, Hx Legally Blind, Hx Macular Degeneration, Other Sensory Impairments Neurological History: Reports: Hx Developmental Delay, Hx Headaches, Hx Seizures Denies: Hx Dementia, Hx Migraine, Hx Nerve Disease, Hx Spinal Cord Injury, Hx Transient Ischemic Attacks (TIA), Other Neuro Impairments/Disorders Psychiatric History: Reports: Hx Anxiety, Hx Attention Deficit Hyperactivity Disorder, Hx Eating Disorder, Hx Depression, Hx Panic Disorder, Hx Post Traumatic Stress Disorder, Hx Inpatient Treatment, Hx Community Mental Health Tx , Hx Bipolar Disorder, Hx Suicide Attempt, Hx of Violent Episodes Against Others - SEE VIOLENCE HX, Hx Substance Abuse - OD on ativan 03/14/2017, Other Psychiatric Issues/Disorders Comment Only: Hx Schizophrenia - Schizoaffective Disorder - Cancer History Hx Chemotherapy: No Hx Radiation Therapy: No Hx Palliative Cancer Treatment: No - Surgical History Surgery Procedure, Year, and Place: None - Immunization History Date of Tetanus Vaccine: UTD Date of Influenza Vaccine: Unk Infectious Disease History: No Infectious Disease History: 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 - Social History Alcohol Use: Occasionally Alcohol Amount: "drank beer awhile ago" Hx Substance Use: No Substance Use Type: Reports: None Substance Use Comment - Amount & Last Used: denies substance abuse Hx Tobacco Use: Yes Smoking Status (MU): Current Every Day Smoker Type: Cigarettes Amount Used/How Often: 1 pack per day Length of Time of Smoking/Using Tobacco: 3 years Have You Smoked in the Last Year: Yes Review of Systems Negative: Fever Positive: Other - POS: decreased appetite. Negative: Abdominal Pain Negative: Other - NEG: back pain Neurological: Other - POS: sleep disturbances Positive: Other - POS: SI, sleep disturbances, auditory hallucinations All Other Systems Reviewed And Are Negative: Yes Physical Exam - Summary Physical Exam Summary: The patient is well-nourished in no acute distress and in no acute pain. The skin is warm and dry and skin color reflects adequate perfusion. She has superficial abrasions to her bilateral forearms. HEENT: The head is normocephalic and atraumatic. The pupils are equal and reactive. The conjunctivae are clear and without drainage. Nares are patent and without drainage. Mouth reveals moist mucous membranes and the throat is without erythema and exudate. The external ears are intact. The ear canals are patent and without drainage. The tympanic membranes are intact. Neck is supple with full range of motion and non-tender. There are no carotid bruits. There is no neck vein distension. Respiratory: Chest is non-tender. Lungs are clear to auscultation and breath sounds are symmetrical and equal. Cardiovascular: Heart is regular rate and rhythm. There is no murmur or rub auscultated. There is no peripheral edema and pulses are symmetrical and equal. Abdomen: The abdomen is obese, soft and non-tender. There are normal bowel sounds heard in all four quadrants and there is no organomegaly palpated. Musculoskeletal: There is no back pain noted. Extremities are non-tender with full range of motion. There is good capillary refill. There is no peripheral edema or calf tenderness elicited. Neurological: Patient is alert and oriented to person, place and time. The patient has symmetrical motor strength in all four extremities. Cranial nerves are grossly intact. Deep tendon reflexes are symmetrical and equal in all four extremities. Psychiatric: She has an appropriate affect. She is a little anxious. Triage Information Reviewed: Yes Vital Signs On Initial Exam: Initial Vitals Temp Pulse Resp BP Pulse Ox 98.4 F 93 18 118/74 93 05/01/17 09:27 05/01/17 09:27 05/01/17 09:27 05/01/17 09:27 05/01/17 09:27 Vital Signs Reviewed: Yes - Anant Coma Scale Coma Scale Total: 15 Diagnostics - Vital Signs Vital Signs Temp Pulse Resp BP Pulse Ox 05/01/17 09:27 98.4 F 93 18 118/74 93 - Laboratory Lab Results: Lab Results 05/01/17 Range/Units 09:30 WBC 12.2 H (3.5-10.8) 10^3/ul RBC 4.66 (4.0-5.4) 10^6/ul Hgb 13.5 (12.0-16.0) g/dl Hct 40 (35-47) % MCV 86 (80-97) fL MCH 29 (27-31) pg MCHC 34 (31-36) g/dl RDW 15 (10.5-15) % Plt Count 337 (150-450) 10^3/ul MPV 9 (7.4-10.4) um3 Neut % (Auto) 75.3 (38-83) % Lymph % (Auto) 17.8 L (25-47) % [place] % (Auto) 5.5 (1-9) % Eos % (Auto) 0.7 (0-6) % Baso % (Auto) 0.7 (0-2) % Absolute Neuts (auto) 9.2 H (1.5-7.7) 10^3/ul Absolute Lymphs (auto) 2.2 (1.0-4.8) 10^3/ul Absolute Monos (auto) 0.7 (0-0.8) 10^3/ul Absolute Eos (auto) 0.1 (0-0.6) 10^3/ul Absolute Basos (auto) 0.1 (0-0.2) 10^3/ul Absolute Nucleated RBC 0 10^3/ul Nucleated RBC % 0 Result Diagrams: 05/01/17 09:30 05/01/17 09:30 Lab Statement: Any lab studies that have been ordered have been reviewed, and results considered in the medical decision making process. Course/Dx - Course Assessment/Plan: The pt is a 26 y/o F presenting to the ED c/o SI with a plan to jump off a building. She says that voices are telling her to kill herself. Pt additionally c/o decreased appetite (no eating in three days), sleep disturbances (last three days), and auditory hallucinations. There are lacerations to her forearm bilaterally. She says that she cut herself yesterday. Pt denies back pain and abd pain. She says that she is normally on Ativan 1mg, although she is off it at the moment. She says she is currently taking Zyprexa, Topamax, and Prozac. SHx: current smoker, no alcohol use, occasional marijuana use. In the ED course the patient was given Ativan and Nicotine gum. Bloodwork shows 12.2 WBC. UA shows 1+ protein, 2+ blood, 1+ leukocyte esterase, 1+ WBC, 2+ WBC, and 1+ bacteria. Urine toxicology is positive for cannabinoids but negative for other drugs. After Mental Health evaluation, the patient will be voluntarily admitted to [facility] to the [facility]. She is stable. She is diagnosed with depression. She signed volunteer paperwork 9.13. - Differential Dx/Clinical Impression Differential Diagnosis/HQI/PQRI: Positive: Anxiety, Suicidal Ideation Provider Diagnosis: Depression Discharge - Discharge Plan Condition: Stable Disposition: ADMITTED TO [facility] Referrals: Don Love [facility] [Primary Care Provider] - The documentation as recorded by the Stacey haskins Thomas accurately reflects the service I personally performed and the decisions made by me, Levi Toro MD.
[2017-05-02] MEDS: OLANzapine TAB* 5 MG PO SCH ×3 (00:10→22:07)
[2017-05-02] MEDS: FLUoxetine CAP* 20 MG PO SCH ×3 (00:10→22:07)
[2017-05-02] MEDS: diPHENhydraMINE PO* 50 MG PO PRN ×3 (00:10→14:41)
[2017-05-02] MEDS ORDERED: Benzocaine/Menthol LOZ* 1 LOZENGE PO PRN (00:20)
[2017-05-02] MEDS ORDERED: Nicotine GUM* 2 MG PO PRN (04:05)
[2017-05-02] MEDS: Haloperidol TAB* 5 MG PO PRN ×2 (06:36→14:40)
[2017-05-02] MEDS: Nicotine Inhaler* 10 MG AMP INH PRN ×4 (06:37→18:19)
[2017-05-02] MEDS: NICOTINE GUM 4 MG PO PRN ×5 (10:47→20:27)
[2017-05-02] MEDS ORDERED: LORazepam TAB(*) 1 MG ONE (14:38)
[2017-05-02] MEDS: LORazepam TAB(*) 1 MG PO PRN ×2 (14:41→19:50)
[2017-05-02] MEDS ORDERED: Mouth Piece, Nicotine* 1 EACH CARTRIDGE ONE (18:19)
--- NOTE | 2017-05-03 02:23 | HP ---
ADMISSION PSYCHIATRIC HISTORY AND PHYSICAL: DATE OF ADMISSION: 05/01/17 JUSTIFICATION FOR ADMISSION: The patient is in need of 24-hour supervision and care secondary to suicidal ideations voiced within 72 hours of admission date. CHIEF COMPLAINT: "I left here too early last time." HISTORY OF PRESENT ILLNESS: The patient is a 26-year-old, single, homosexual female with a history of borderline intellectual functioning, as well as borderline personality disorder, who was well known to our unit for multiple past admissions, who was most recently discharged from our unit on 04/23/17, who now returns to the hospital seeking hospitalization secondary to suicidal ideations. My understanding is that she was brought in on a 9.45 legal status having been initiated by the [facility] due to the patient having multiple cuts and saucedo to her wrists and stating that she will further cut herself or overdose on medications in a suicide attempt. The patient does have a history of very serious suicidal attempt and we could not deescalate her or get her to experience a resolution in her plans to self-harm and for this reason, she was granted voluntary admission to the unit. The patient is currently on Haldol Decanoate with her last injection being delivered on the date of discharge, which was 04/23/17. She does indicate that she has been tolerating this well, we have also placed her on once weekly dispensations of her oral medications, which include oral olanzapine, as well as oral fluoxetine. Despite these interventions, the patient continues to have emotional distress in the community. She has been awaiting housing placement through the [facility], but it is uncertain at this time how close she is to finding more sturdy residential circumstances. We do note that she has been following up with the [facility] program at [facility], and this is by and large the best compliance we had seen with outpatient treatment in many years with this patient. PAST PSYCHIATRIC HISTORY: Significant for multiple hospitalizations here on the behavioral science unit, most recently being between 04/11/17 and 04/23/17. She has also received hospitalizations at [facility], as well as [facility]. It is unclear what her longest period of stabilization in the community has been without requiring further inpatient hospitalization. Currently, she is treated at [facility], where she sees Dr. Suly Quinonez and attends group meetings through the [facility] program. SUBSTANCE ABUSE HISTORY: The patient has been known to abuse cannabis, alcohol , cocaine, and other stimulants in the community, although most recently she has been sober. Urine drug screen is positive for cannabinoids. PAST MEDICAL HISTORY: Significant for remote seizures. She has also been diagnosed with obesity and hypertension in the past. FAMILY HISTORY: Significant for mental health issues in her mother. SOCIAL HISTORY: The patient resides here in [place] with her mother. She is seeking supported housing in the community. 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 She has no notable legal or history. REVIEW OF SYSTEMS: The patient describes pain in her left upper extremity from self-immolation and cutting. She denies headache or double vision. Denies sore throat, cough, chest pain, difficulty breathing. She denies abdominal pain , nausea, vomiting, diarrhea, or constipation. She denies difficulty ambulating , rashes, enlarged lymph nodes, fevers, or changes in weight. PHYSICAL EXAMINATION VITAL SIGNS: Blood pressure 115/58, heart rate 87, respiratory rate 16, temperature 97.7 degrees Fahrenheit, oxygen saturations are 99% on room air. HEENT: Head is normocephalic, atraumatic. NECK: Supple. CHEST: Clear to auscultation bilaterally. ABDOMEN: Obese and nontender. MUSCULOSKELETAL: Reveals no sign of edema. NEUROLOGIC: She is grossly intact. SKIN: Reveals multiple lacerations and well-healed self-injurious cuts to bilateral upper extremities. MENTAL STATUS EXAM: The patient is an obese, young, white female, wearing green patient scrubs, who has fairly normal hygiene. There is no evidence of motor disturbance. Her hair is dyed blue and pulled up in a pony tail on the top of her head. She is currently calm and cooperative. Mood is depressed, irritable, with a labile affect. Though process is linear and goal directed. Thought content is significant for her desire to be admitted to the mental health unit. She is endorsing suicidal ideations with thoughts of cutting herself or overdosing. She denies homicidality. She does endorse auditory hallucinations telling her to abuse herself. She denies visual hallucinations. Insight and judgment are poor given her over utilization of emergency psychiatric resources. Cognitively, she is awake and alert with a somewhat low average intellect by virtue of her documented history of cognitive and developmental delay. LABORATORY DATA: Complete blood count is within normal limits as is her complete metabolic panel. TSH normal at 1.06. Serum is negative. Urinalysis is positive for 2+ blood and 1+ white blood cells, 1+ leukocyte esterase, 1+ bacteria. Urine drug screen positive for cannabinoids. Negative for all other substances tested including alcohol. DIAGNOSES: Are as follows: Gore I: Unspecified mood disorder, posttraumatic stress disorder by history. Gore II: Borderline personality disorder, borderline intellectual functioning. Gore III: Obesity. Gore IV: Severe housing and primary support stressors. Gore V: At this time is 40. IMPRESSION: The patient is a 26-year-old single homosexual white female with a history of borderline personality disorder, posttraumatic stress disorder, and borderline intellectual functioning with numerous recent admissions to behavioral science unit, who is most recently discharged on 04/23/17, who now returns to the emergency room having cut herself and burnt herself and complaining of thoughts of overdosing or perhaps cutting herself again. The patient is on the waiting list for supportive housing in the community through the [place] [facility] and until then, she is more or less forced to stay with her mother, who has psychiatric issues of her own. We have tried numerous times to have her admitted to a longer-term state facility, although they have consistently declined her. Until she has more stable housing, my fear is that she will continue to bounce in and out of our emergency room and psychiatric unit. PLAN: The patient is admitted to the adult behavioral health unit. She is not due for her next injection of Haldol Decanoate 175 mg until 05/21/17. In the meantime, we will be treating her with olanzapine 5 mg p.o. b.i.d. and fluoxetine 20 mg p.o. b.i.d. We will be contacting [place] to see where she is in terms of being in line for supported housing. We will also contact [facility] for further collateral information. [id number]/[facility] #: [id number] NEIL
[2017-05-03] MEDS: NICOTINE GUM 4 MG PO PRN ×3 (05:53→10:28)
[2017-05-03] MEDS: Nicotine Inhaler* 10 MG AMP INH PRN ×2 (05:53→11:34)
[2017-05-03] MEDS: LORazepam TAB(*) 1 MG PO PRN ×2 (05:53→11:56)
[2017-05-03 07:44] VITALS: BP 140/65
[2017-05-03] MEDS: OLANzapine TAB* 5 MG PO SCH (08:23)
[2017-05-03] MEDS: FLUoxetine CAP* 20 MG PO SCH (08:23)
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
[2017-05-03] MEDS: Haloperidol TAB* 5 MG PO PRN (11:33)
[2017-05-03] MEDS: diPHENhydraMINE PO* 50 MG PO PRN (11:33)
--- NOTE | 2017-05-04 02:34 | DS ---
PSYCHIATRIC DISCHARGE SUMMARY: DATE OF ADMISSION: 05/01/17 DATE OF DISCHARGE: 05/03/17 DISCHARGE DIAGNOSES: Are as follows: Florence I: Unspecified mood disorder, posttraumatic stress disorder by history. Florence II: Borderline personality disorder, borderline intellectual functioning. Florence III: Obesity. Florence IV: Severe housing and primary support stressors. Florence V: At the time of admission was 38 and at the time of discharge is 53. CONDITION AT THE TIME OF DISCHARGE: Improved. The patient is no longer endorsing suicidal or homicidal ideations. She is agreeable with returning home to her family to live as she awaits formal placement in supported housing. She has been working closely with representatives of the [facility] and they have even taken her to see some available apartments that were unfortunately untenable for her given their distance away from available bus lines. In spite of this, she is not discouraged and states that she will continue moving forward with getting her own supported apartment here in [place]. She notes that her followup is with [facility] and she already has a supply of medications available to her from her most recent discharge on the 04/23/17. The patient is also tolerating her injectable antipsychotic quite well and notes that her next injection is not due until the 05/21/17. I would say this patient does maintain elevated chronic risks for self-harm given the fact that she has a well documented history of self-abuse and difficulty coping without resorting to parasuicidal gestures. With that being said, she understands that her biggest current stressor is the housing issue, which cannot be solved from inside the hospital and she does have a good pass towards getting sturdier housing in the near future. MENTAL STATUS EXAM AT THE TIME OF DISCHARGE: The patient is an obese young white female, wearing a long black sleeved shirt, who has fairly normal hygiene. There is no evidence of motor disturbance. Her hair is dyed blue and pulled up in a pony tail on top of her head. She is currently calm and cooperative, mood is euthymic with full affect. Thought process is linear and goal directed. Thought content is significant for her desire to be discharged from the hospital. She is denying suicidal or homicidal ideations. She denies auditory or visual hallucinations. She denies any psychotic thought process. Insight and judgment are poor given her over-utilization of emergency psychiatric resources, although she is willing to follow up in the community. Cognitively, she is awake and alert with what would appear to be some developmental delay. DISCHARGE INSTRUCTIONS: To the patient are as follows: A: Medications: 1. She takes Haldol Decanoate 175 mg IM every 4 weeks, next shot being due 05/21/17. 2. She also takes fluoxetine 20 mg p.o. b.i.d. 3. Olanzapine 5 mg p.o. b.i.d. 4. Topamax 50 mg p.o. b.i.d. The patient is on antipsychotic polypharmacy due to the fact that we have recently placed her on Haldol and she is cross titrating between olanzapine and Haldol. B: Diet is regular. C: Activities as tolerated. The patient is declining the offer of continued nicotine replacement therapy, indicating her preference to continue smoking cigarettes for the time being. There are no laboratory or diagnostic studies pending at the time of discharge. D: Followup care: The patient will follow up tomorrow at the [facility] program where she goes to groups through the [employer] organization. She is also to follow up with access service representative of [facility] as she is requiring support of housing in the community and she is next up on their list of potential tenants. HOSPITAL COURSE: As follows: A: Reason for admission: The patient is a 26-year-old single homosexual female with a history of borderline intellectual functioning as well as borderline personality disorder, who is well known to our unit from multiple past admissions, most recently being discharged from the [facility] on 04/23/17, who now returns to the hospital seeking hospitalization secondary to suicidal ideations. My understanding is that she was brought in on a 9.45 legal status, having been initiated by the [facility] due to the patient having made multiple cuts and saucedo to her wrists and stating that she would further cut herself in a suicide attempt. The patient does have a history of very serious suicide attempts in the past and we could not deescalate her in our emergency facility. We do know that she is on Haldol Decanoate with her last injection being given on 04/23/17. She does indicate that she has been tolerating this well and also taking olanzapine and fluoxetine, which we are having her pharmacy dispense in 1-week allotments given her fears of overdosing. Despite these interventions, the patient continues to have emotional distress in the community. She has been awaiting housing placement through the [facility], but was uncertain how close she is to finding more sustainable residential circumstances. We do note that she has been following up with the [facility] program at [facility] and this is by and large the best compliance that she has had with outpatient treatment in many years. B: Psychiatric treatment rendered: The patient was admitted to the Adult Behavioral Health Unit where she was placed on q.15 minute checks for her own safety. We immediately continued her oral fluoxetine and olanzapine. The patient was placed back on outpatient medications and we know that she is not due for her next Haldol Decanoate shot until early next month. We were able to get in touch with the [facility], who indicated that they had been out with the patient to look at available apartments, but could not find anything yet that had close access to a bus line. For this reason, we know that she is obligated to continue to stay with her mother with whom she often does not get along. Despite this, the patient showed a marked resolution in suicidal thinking once on the unit, stating that she knows that she needs to stay with her mom until she can get her apartment and she expressed an understanding that there is nothing that the inpatient service can do to hasten this process. She is already at the top of their list, and once an available apartment is open, they will be showing it to her and allowing her to express an opinion as to whether it is suitable for her needs. The patient indicates that she is willing to continue following up with [facility] and also willing to continue taking medications on an outpatient basis. At this time, although she has been dykes and uncooperative at times, we have noted that she has been safe on all checks and we do not feel that she warrants further inpatient care at this time. [id number]/[facility] #: [id number] NEIL
== END 2017-05-03 14:25 | disposition home or self-care (01) | DRG 753 ==
LOC: ED 09:25 → BSU 12:30
PROVIDERS: ADMIT Psychiatry & Neurology Psychiatry; ATTEND Psychiatry & Neurology Psychiatry
DX: F39 Unspecified mood [affective] disorder (principal); F50.9 Eating disorder, unspecified; I10 Essential (primary) hypertension; F43.10 Post-traumatic stress disorder, unspecified; F60.3 Borderline personality disorder; R41.83 Borderline intellectual functioning; E66.9 Obesity, unspecified; Z88.0 Allergy status to penicillin; E73.9 Lactose intolerance, unspecified; Z91.040 Latex allergy status; F90.9 Attention-deficit hyperactivity disorder, unspecified type; F41.0 Panic disorder [episodic paroxysmal anxiety]; Z81.8 Family history of other mental and behavioral disorders; F17.210 Nicotine dependence, cigarettes, uncomplicated; Z68.32 Body mass index [BMI] 32.0-32.9, adult
CPT/HCPCS: 36415; 80053; 80307; 80320; 80329; 81003; 81015; 84443; 84702; 85025; 87086; 99222; 99238; A9270-GY; G0480

== ENCOUNTER 2017-05-04 11:37 | Inpatient (IN) | payer MEDICAID, OTHER ==
[~2017-05-04 11:37] MED LIST changes: -LORazepam TAB(*) 1 MG PO ONE; +Mouth Piece, Nicotine* 1 EACH CARTRIDGE ONE; -Nicotine GUM* 2 MG ONE; -Nicotine GUM* 2 MG PO PRN; +Nicotine Inhaler* 10 MG AMP ONE
[2017-05-04] MEDS ORDERED: Haloperidol INJ IV/IM* 5 MG/ML AMP IM ONE (11:41)
[2017-05-04] MEDS ORDERED: LORazepam INJ* 2 MG/ML 1 ML VIAL IM ONE (11:43)
[2017-05-04] MEDS ORDERED: diPHENhydraMINE IV* 50 MG/ML 1 ml VIAL (BENADRYL) IM ONE (11:43)
[2017-05-04] MEDS ORDERED: LORazepam TAB(*) 1 MG PO ONE ×2 (12:01→15:18)
[2017-05-04] MEDS: Nicotine GUM* 2 MG PO PRN ×4 (12:30→18:53)
[2017-05-04 12:46] LABS: Hematocrit 40 % (35-47); Hemoglobin 13.2 g/dl (12.0-16.0); Mean Corpuscular HGB Conc 33 g/dl (31-36); Mean Corpuscular Hemoglobin 29 pg (27-31); Mean Corpuscular Volume 86 fL (80-97); Mean Platelet Volume 9 um3 (7.4-10.4); Red Cell Distribution Width 15 % (10.5-15); White Blood Count 12.7 10^3/ul (3.5-10.8)
[2017-05-04 13:04] LABS: ALT 22 U/L (7-52); AST 16 U/L (13-39); Albumin 4.1 g/dL (3.2-5.2); Alkaline Phosphatase 74 U/L (34-104); Anion Gap 7 mmol/L (2-11); BUN/Creatinine Ratio 13.5 (8-20); Blood Urea Nitrogen 10 mg/dL (6-24); CO2 Carbon Dioxide 22 mmol/L (22-32); Calcium 9.5 mg/dL (8.6-10.3); Chloride 108 mmol/L (101-111); EGFR African American 120.2 (>60); EGFR Non-African American 93.5 (>60); Globulin 3.6 g/dL (2-4); Glucose 96 mg/dL (70-100); Potassium 4.1 mmol/L (3.5-5.0); Sodium 137 mmol/L (133-145); Total Protein 7.7 g/dL (6.4-8.9)
[2017-05-04 13:22] LABS: Acetaminophen < 15 mcg/mL; Alcohol < 10 mg/dL (<10); Salicylate < 2.50 mg/dL (<30)
[2017-05-04 13:28] LABS: TSH (Thyroid Stimulating Horm) 0.85 mcIU/mL (0.34-5.60)
[2017-05-04] MEDS ORDERED: Ketorolac TAB * 10 MG TAB PO ONE (14:52)
[2017-05-04] MEDS ORDERED: Al Hydrox/Mg Hydrox/Simet LIQ* 30 ML UDC PO PRN (15:10)
--- NOTE | 2017-05-04 15:54 | ED ---
Stacey Lofton Thomas, scribed for Romi Reyes MD on 05/04/17 at 1155 . Psychiatric Complaint - HPI Summary HPI Summary: The patient is a 26 y/o F BIB police with self-inflicted abrasions to her left forearm. She says that she is really upset. When asked if she has taken any drugs, she says she has taken marijuana and Oxycotntin. Per police, the patient wasnt acting high before she got to the ED and when we got to the parking lot she started acting this way. LEVEL 5 CAVEAT: LIMITED D/T UNCOOPERATIVE PATIENT - History Of Current Complaint Time Seen by Provider: 05/04/17 11:38 Hx Obtained From: Patient, Other: - Police Hx Last Menstrual Period: pt states has IUD - no period Onset/Duration: Still Present Timing: Constant Character: Angry, Frustrated Aggravating Factor(s): Nothing Alleviating Factor(s): Nothing Associated Signs And Symptoms: Positive: Hostile Related History: Positive For: Drug Abuse Counseling - Allergies/Home Medications Allergies/Adverse Reactions: Allergies Allergy/AdvReac Type Severity Reaction Status Date / Time Penicillin V Allergy Severe Hives Verified 05/01/17 14:40 Latex Allergy Intermediate Rash Verified 05/01/17 14:40 Lactose Intolerance (GI) Allergy Diarrhea Verified 05/01/17 14:40 glue Allergy Rash Uncoded 05/01/17 14:40 steri strips Allergy Rash Uncoded 05/01/17 14:40 PMH/Surg Hx/FS Hx/Imm Hx Previously Healthy: No Endocrine/Hematology History: Reports: Hx Unexplained Bleeding Denies: Hx Anticoagulant Therapy, Hx Blood Disorders, Hx Thyroid Disease, Other Endocrine/Hematological Disorders - borderline diabetic Comment Only: Hx Diabetes - Borderline Cardiovascular History: Denies: Hx Hypertension, Hx Pacemaker/ICD, Other Cardiovascular Problems/ Disorders Respiratory History: Denies: Hx Asthma - patient denied, Hx Chronic Bronchitis, Hx Chronic Obstructive Pulmonary Disease (COPD), Hx Cystic Fibrosis, Hx Lung Cancer, Hx Pleural Effusion, Hx Pneumonia, Hx Pulmonary Edema, Hx Pulmonary Embolism, Hx Seasonal Allergies, Hx Sleep Apnea, Other Respiratory Problems/Disorders GI History: Denies: Hx Ulcer, Other GI Disorders History: Reports: Other Problems/Disorders - Urinary Retention and Herpes Denies: Hx Renal Disease Musculoskeletal History: Denies: Other Musculoskeletal History Sensory History: Reports: Hx Contacts or Glasses Denies: Hx Cataracts, Hx Eye Injury, Hx Eye Prosthesis, Hx Glaucoma, Hx Legally Blind, Hx Macular Degeneration, Hx Deafness, Hx Hearing Aid, Hx Hearing Problem, Other Sensory Impairments Opthamlomology History: Reports: Hx Contacts or Glasses Denies: Hx Cataracts, Hx Eye Injury, Hx Eye Prosthesis, Hx Glaucoma, Hx Legally Blind, Hx Macular Degeneration, Other Sensory Impairments Neurological History: Reports: Hx Developmental Delay, Hx Headaches, Hx Seizures Denies: Hx Dementia, Hx Migraine, Hx Nerve Disease, Hx Spinal Cord Injury, Hx Transient Ischemic Attacks (TIA), Other Neuro Impairments/Disorders Psychiatric History: Reports: Hx Anxiety, Hx Attention Deficit Hyperactivity Disorder, Hx Eating Disorder, Hx Depression, Hx Panic Disorder, Hx Post Traumatic Stress Disorder, Hx Inpatient Treatment, Hx Community Mental Health Tx , Hx Bipolar Disorder, Hx Suicide Attempt, Hx of Violent Episodes Against Others - SEE VIOLENCE HX, Hx Substance Abuse - OD on ativan 03/14/2017, Other Psychiatric Issues/Disorders Comment Only: Hx Schizophrenia - Schizoaffective Disorder - Cancer History Hx Chemotherapy: No Hx Radiation Therapy: No Hx Palliative Cancer Treatment: No - Surgical History Surgery Procedure, Year, and Place: None - Immunization History Date of Tetanus Vaccine: UTD Date of Influenza Vaccine: Unk Infectious Disease History: 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 - Social History Alcohol Use: Occasionally Alcohol Amount: "drank beer awhile ago" Hx Substance Use: No Substance Use Type: Reports: None Substance Use Comment - Amount & Last Used: denies substance abuse Hx Tobacco Use: Yes Smoking Status (MU): Current Every Day Smoker Type: Cigarettes Amount Used/How Often: 1 pack per day Length of Time of Smoking/Using Tobacco: 3 years Have You Smoked in the Last Year: Yes Review of Systems - ROS Summary Review of Systems Summary: LEVEL 5 CAVEAT: LIMITED D/T UNCOOPERATIVE PATIENT Positive: Other - Self-inflicted abrasions to left forearm Psychological: Other - "very upset" All Other Systems Reviewed And Are Negative: No Physical Exam - Summary Physical Exam Summary: LEVEL 5 CAVEAT: LIMITED D/T UNCOOPERATIVE PATIENT Triage Information Reviewed: Yes Vital Signs On Initial Exam: Initial Vitals Resp 21 05/04/17 12:21 Vital Signs Reviewed: Yes Appearance: Positive: Well-Appearing, No Pain Distress Skin: Positive: Warm, Skin Color Reflects Adequate Perfusion, Dry, Other - She has three superficial abrasions over the ventral surface of her forearm and three superficial abrasions on the dorsal surface. Eyes: Positive: EOMI, [place] Neck: Positive: Supple, Nontender Respiratory/Lung Sounds: Positive: Clear to Auscultation, Breath Sounds Present. Negative: Rales, Rhonchi, Wheezes Cardiovascular: Positive: RRR, Other - No gallop. Negative: Murmur, Rub Abdomen Description: Positive: Nontender, Soft, Other: - No rebound. Negative: Distended, Guarding Musculoskeletal: Positive: Strength/ROM Intact. Negative: Edema Left, Edema Right Neurological: Positive: Sensory/Motor Intact, Alert, Oriented to Person Place, Time, CN Intact II-III Psychiatric: Positive: Patient Uncooperative for Exam Diagnostics - Vital Signs Vital Signs Temp Pulse Resp BP Pulse Ox 05/04/17 15:23 17 05/04/17 14:27 98.8 F 106 22 138/76 100 05/04/17 12:21 21 - Laboratory Lab Results: Lab Results 05/04/17 05/04/17 Range/Units 12:34 12:34 WBC 12.7 H (3.5-10.8) 10^3/ul RBC 4.60 (4.0-5.4) 10^6/ul Hgb 13.2 (12.0-16.0) g/dl Hct 40 (35-47) % MCV 86 (80-97) fL MCH 29 (27-31) pg MCHC 33 (31-36) g/dl RDW 15 (10.5-15) % Plt Count 329 (150-450) 10^3/ul MPV 9 (7.4-10.4) um3 Neut % (Auto) 74.6 (38-83) % Lymph % (Auto) 19.2 L (25-47) % Gilliam % (Auto) 5.3 (1-9) % Eos % (Auto) 0.4 (0-6) % Baso % (Auto) 0.5 (0-2) % Absolute Neuts (auto) 9.4 H (1.5-7.7) 10^3/ul Absolute Lymphs (auto) 2.4 (1.0-4.8) 10^3/ul Absolute Monos (auto) 0.7 (0-0.8) 10^3/ul Absolute Eos (auto) 0.1 (0-0.6) 10^3/ul Absolute Basos (auto) 0.1 (0-0.2) 10^3/ul Absolute Nucleated RBC 0 10^3/ul Nucleated RBC % 0 Sodium 137 (133-145) mmol/L Potassium 4.1 (3.5-5.0) mmol/L Chloride 108 (101-111) mmol/L Carbon Dioxide 22 (22-32) mmol/L Anion Gap 7 (2-11) mmol/L BUN 10 (6-24) mg/dL Creatinine 0.74 (0.51-0.95) mg/dL Est GFR ( Amer) 120.2 (>60) Est GFR (Non-Af Amer) 93.5 (>60) BUN/Creatinine Ratio 13.5 (8-20) Glucose 96 (70-100) mg/dL Calcium 9.5 (8.6-10.3) mg/dL Total Bilirubin 0.30 (0.2-1.0) mg/dL AST 16 (13-39) U/L ALT 22 (7-52) U/L Alkaline Phosphatase 74 (34-104) U/L Total Protein 7.7 (6.4-8.9) g/dL Albumin 4.1 (3.2-5.2) g/dL Globulin 3.6 (2-4) g/dL Albumin/Globulin Ratio 1.1 (1-3) TSH 0.85 (0.34-5.60) mcIU/mL Salicylates < 2.50 (<30) mg/dL Acetaminophen < 15 mcg/mL Serum Alcohol < 10 (<10) mg/dL Result Diagrams: 05/04/17 12:34 05/04/17 12:34 Lab Statement: Any lab studies that have been ordered have been reviewed, and results considered in the medical decision making process. Course/Dx - Course Course Of Treatment: pt with multiple superficial abrasions to arms admitted in stable condition to mental health - Differential Dx/Clinical Impression Provider Diagnosis: Depressive disorder, Wound of left upper extremity Discharge - Discharge Plan Condition: Stable Disposition: ADMITTED TO [facility] The documentation as recorded by the Stacey haskins Thomas accurately reflects the service I personally performed and the decisions made by me, Romi Reyes MD.
[2017-05-04] MEDS ORDERED: Mouth Piece, Nicotine* 1 EACH CARTRIDGE ONE (17:01)
[2017-05-04] MEDS ORDERED: Nicotine PATCH 21 MG/24 HR* PATCH ONE (17:02)
[2017-05-04] MEDS: Nicotine Inhaler* 10 MG AMP INH PRN (17:04)
[2017-05-04] MEDS: LORazepam TAB(*) 1 MG PO PRN (17:06)
--- NOTE | 2017-05-04 18:36 | HP ---
HISTORY AND PHYSICAL: DATE OF ADMISSION: 05/04/17 JUSTIFICATION FOR ADMISSION: The patient is in need of 24-hour supervision and care secondary to stevens icidal ideations. CHIEF COMPLAINT: "I just can't take it out there." HISTORY OF PRESENT ILLNESS: The patient is a 26-year-old single homosexual female with a history of borderline intellectual functioning as well as borderline personality disorder who was just dischar vannesa yesterday from the behavioral science unit who now returns to the hospital having just severely lacerated herself with a razor. The patient is acutely suicidal stating that she will continue to s elf-harm if discharged. The patient is well known to us for numerous prior admissions, and for a mo re complete history and physical, please refer to my H and P, which is dated 05/02/17. The patient is currently on Haldol Decanoate with her last injection being delivered on 04/23/17. She does amaury chloe that she continues to tolerate this well along with oral olanzapine and oral fluoxetine but luther pite these interventions, she has continued to have emotional distress in the community. She has be en forced to stay with her mother as she is awaiting supported housing for which she is at the top o f the local waiting list; however, her and her mother often fight and this is well known to be a luis ewhat toxic pairing. Furthermore, the patient does not have any alteratives in terms of places to s [facility]. She has gone out and looked at a few apartments through the [facility], but these were al l too far away from the bus line and so she remains effectively homeless at this time. MENTAL STATUS EXAM: The patient is an obese young white female wearing green patient scrubs who has fairly normal hygiene. There is no evidence of motor disturbance. Her hair is dyed blue and pulle d up in a ponytail on top of her head. She is currently distressed, anxious, and appearing to be in crisis. Mood is depressed, irritable with a labile affect. Thought process is linear and goal dire cted. Thought content is significant for her desire to be admitted back to the behavioral science u nit. She is endorsing suicidal ideations with thoughts of cutting herself. She denies homicidality . She does endorse auditory hallucinations telling her to abuse herself. She denies visual halluci nations. Insight and judgment are poor given her lack of utilization of appropriate outpatient servi indu. Cognitively, she is awake and alert with a somewhat low average intellect by virtue of her doc umented history of developmental delay. DIAGNOSES: [employer] I: Unspecified mood disorder, posttraumatic stress disorder by history. [employer] [place] II: B orderline personality disorder, borderline intellectual functioning. [employer] [place] III: Obesity. [employer] [place] IV: S evere housing and primary support stressors. [employer] [place] V: At this time is 28. IMPRESSION: The patient is a 26-year-old single homosexual white female with a history of borderlin e personality disorder, posttraumatic stress disorder, and borderline intellectual functioning with numerous recent admissions to the behavioral science unit who returns to the hospital 1 day after he r most recent discharge having severely cut herself on the arm and expressing further suicidal ideat ions with plans to by cutting herself. The patient remains on the waiting list for supportive h ousing in the community through the [facility] and until then she has been more or less forced to stay with her mother who has psychiatric issues of her own. We have tried numerous times to have her admitted to a longer term state facility, although they have consistently declined her. Until she has more stable housing, my fear is that she will continue to bounce in and out of our emergency room and psychiatric unit. PLAN: The patient is admitted to the adult behavioral health unit. She will be due for her next in jection of Haldol Decanoate 175 mg on 05/21/17. In the meantime, we will be treating her wi th olanzapine 5 mg p.o. b.i.d. and fluoxetine 20 mg p.o. b.i.d. We will be contacting [facility] to s ee where she is in terms of being in line for supportive housing. We will also contact [facility] for further collateral information. [id number]/[facility] #: [id number]
[2017-05-04] MEDS: FLUoxetine CAP* 20 MG PO SCH (22:55)
[2017-05-04] MEDS: OLANzapine TAB* 5 MG PO SCH (22:55)
[2017-05-04] MEDS: Nicotine Patch Removal NOTE PATCH OFF SCH (22:55)
[2017-05-05] MEDS: diPHENhydraMINE PO* 50 MG PO PRN ×2 (00:30→10:50)
[2017-05-05] MEDS: LORazepam TAB(*) 1 MG PO PRN ×4 (00:30→17:00)
[2017-05-05] MEDS: FLUoxetine CAP* 20 MG PO SCH ×3 (00:30→21:37)
[2017-05-05] MEDS: Haloperidol TAB* 5 MG PO PRN ×2 (00:30→10:50)
[2017-05-05] MEDS: Nicotine Inhaler* 10 MG AMP INH PRN ×3 (00:30→20:37)
[2017-05-05] MEDS: OLANzapine TAB* 5 MG PO SCH ×3 (00:30→21:37)
[2017-05-05] MEDS: Nicotine GUM* 2 MG PO PRN ×7 (00:30→20:37)
[2017-05-05] MEDS: Nicotine Patch Removal NOTE PATCH OFF SCH ×2 (07:15→21:37)
[2017-05-05] MEDS: Nicotine PATCH 21 MG/24 HR* PATCH TRANSDERM SCH (07:17)
[2017-05-05] MEDS ORDERED: Mouth Piece, Nicotine* 1 EACH CARTRIDGE ONE ×2 (12:46→20:35)
--- NOTE | 2017-05-05 17:25 | PN ---
Subjective - Subjective Service Type: 19626 Hosp care 15 min low complexity Subjective: Maryl had an episode of behavioral dysregulation in the morning and demanding IM meds and her own supply of Nicotine gums. After spending somr time in the quiet room and receiving her routine PRNs she appeared to have good control of her behaviors for the rest of the day. Standing by the Nurses station often for attention. Objective - Appearance Appearance: Obese Dysmorphic Features: No Hygiene: Normal Grooming: Fairly Well Kept - Behavior Psychomotor Activities: Normal Exhibits Abnormal Movement: No - Attitude and Relatedness Attitude and Relatedness: Cooperative Eye Contact: Good - Speech Quality: Unpressured Latencies: Normal Quantity: Terse - Mood Patient's Decription of Mood: "Okay" - Affect Observed Affect: Constricted Affect Consistent with: Dysphoria - Thought Process Patient's Thought Process: Coherent, Circumstantial Thought Content: No Passive Wish, No Suicidal Planning, No Homicidal Ideation, No Paranoid Ideation - Sensorium Experiencing Hallucinations: No, Sensorium is Clear Type of Hallucinations: Visual: No, Auditory: No, Command: No - Level of Consciousness Level of Consciousness: Alert Orientation: Yes Intact, Yes Orientated to Time, Yes Orientated to Place, Yes Orientated to Person - Impulse Control Impulse Control: Tenuous - Insight and Judgement Insight and Judgement: Poor - Group Participation Particating in Group Activities: No - Medication Management Medication Management Adherence: Yes Assessment - Assessment Merits Inpatient Hospitalization: For Immediate Safety, For Stabilization, Pending Safe DC Plan Plan - Plan Treatment Plan: Name: MARLY WILKINSON Birthdate: 1990 [id number] Continued Medication Management: Continue Outpt Medication Medications: Current Medications Acetaminophen (Tylenol Tab*) 650 mg PO Q4H PRN PRN Reason: for pain; or Temp >101 F Al Hydrox/Mg Hydrox/Simethicone (Maalox Plus*) 30 ml PO Q4H PRN PRN Reason: INDIGESTION Diphenhydramine HCl (Benadryl Po*) 50 mg PO Q6H PRN PRN Reason: AGITATION/ANXIETY/INSOMNIA Last Admin: 05/05/17 10:50 Dose: 50 mg Fluoxetine HCl (Prozac Cap*) 20 mg PO BID KEVIN Last Admin: 05/05/17 10:03 Dose: 20 mg Haloperidol (Haldol Tab*) 5 mg PO Q6H PRN PRN Reason: AGITATION/ANXIETY/INSOMNIA Last Admin: 05/05/17 10:50 Dose: 5 mg Lorazepam (Ativan Tab(*)) 1 mg PO Q6H PRN PRN Reason: ANXIETY Last Admin: 05/05/17 17:00 Dose: 1 mg Nicotine (Nicotine Inhaler*) 10 mg INH Q2H PRN PRN Reason: CRAVING Last Admin: 05/05/17 00:30 Dose: 10 mg Nicotine (Nicotine Patch 21 Mg/24 Hr*) 1 patch TRANSDERM DAILY@0800 [facility] Last Admin: 05/05/17 07:17 Dose: 1 patch Nicotine Polacrilex (Nicotine Gum*) 2 mg PO Q2H PRN PRN Reason: CRAVING Last Admin: 05/05/17 15:38 Dose: 2 mg Olanzapine (Zyprexa Tab*) 5 mg PO BID [facility] Last Admin: 05/05/17 10:03 Dose: 5 mg Pharmacy Profile Note (Nicotine Patch Removal Note*) 1 note PATCH OFF 2100 [facility] Last Admin: 05/05/17 07:15 Dose: 1 note - Discharge Plan Discharge Plan: Outpatient Follow Up Outpatient Program: [facility]
[2017-05-06] MEDS: Nicotine GUM* 2 MG PO PRN ×6 (07:23→20:05)
[2017-05-06] MEDS: LORazepam TAB(*) 1 MG PO PRN ×3 (07:23→20:05)
[2017-05-06] MEDS: Nicotine PATCH 21 MG/24 HR* PATCH TRANSDERM SCH (07:33)
[2017-05-06] MEDS: Nicotine Inhaler* 10 MG AMP INH PRN ×2 (07:33→16:03)
[2017-05-06] MEDS: OLANzapine TAB* 5 MG PO SCH ×2 (09:31→20:06)
[2017-05-06] MEDS: FLUoxetine CAP* 20 MG PO SCH ×2 (09:31→20:05)
[2017-05-06] MEDS: Acetaminophen TAB* 325 MG PO PRN (11:00)
[2017-05-06] MEDS: diPHENhydraMINE PO* 50 MG PO PRN (11:00)
[2017-05-06] MEDS: Haloperidol TAB* 5 MG PO PRN (11:00)
[2017-05-06] MEDS: Nicotine Patch Removal NOTE PATCH OFF SCH (20:02)
[2017-05-07] MEDS: diPHENhydraMINE PO* 50 MG PO PRN ×2 (01:01→13:37)
[2017-05-07] MEDS: Nicotine Inhaler* 10 MG AMP INH PRN ×3 (01:03→16:55)
[2017-05-07] MEDS: Nicotine GUM* 2 MG PO PRN ×3 (05:57→11:37)
[2017-05-07] MEDS: Nicotine PATCH 21 MG/24 HR* PATCH TRANSDERM SCH (08:16)
[2017-05-07] MEDS: FLUoxetine CAP* 20 MG PO SCH ×2 (08:18→22:21)
[2017-05-07] MEDS: OLANzapine TAB* 5 MG PO SCH ×2 (08:18→22:21)
[2017-05-07] MEDS: LORazepam TAB(*) 1 MG PO PRN ×2 (08:19→14:37)
[2017-05-07] MEDS ORDERED: Nicotine GUM* 2 MG PO PRN (12:48)
--- NOTE | 2017-05-07 12:53 | PN ---
Subjective - Subjective Service Type: 10535 Hosp care 15 min low complexity Subjective: Patient in good behavioral control today but notes that she feels like she would end her own life if discharged back to her mother's home. Patient agreeable to collaborating with the [facility] on housing placement. Objective - Appearance Appearance: Obese Dysmorphic Features: No Hygiene: Normal Grooming: Fairly Well Kept - Behavior Psychomotor Activities: Normal Exhibits Abnormal Movement: No - Attitude and Relatedness Attitude and Relatedness: Cooperative Eye Contact: Fair - Speech Quality: Unpressured Latencies: Normal Quantity: Appropriate - Mood Patient's Decription of Mood: "Okay" - Affect Observed Affect: Fair Affect Consistent with: Euthymia - Thought Process Patient's Thought Process: Coherent Thought Content: Yes Suicidal Planning, No Passive Wish, No Homicidal Ideation, No Paranoid Ideation - Sensorium Experiencing Hallucinations: No, Sensorium is Clear Type of Hallucinations: Visual: No, Auditory: No, Command: No - Level of Consciousness Level of Consciousness: Alert Orientation: Yes Intact, Yes Orientated to Time, Yes Orientated to Place, Yes Orientated to Person - Impulse Control Impulse Control: Poor - Insight and Judgement Insight and Judgement: Impaired - Group Participation Particating in Group Activities: No - Medication Management Medication Management Adherence: Yes Assessment - Assessment Merits Inpatient Hospitalization: For Immediate Safety, For Stabilization Inpatient DSM-IV Dx: Unspecified Mood DO Clinical Impression: 26 y.o. single, white, homosexual female with a history of multiple prior [facility] admissions in the setting of affective instability, Borderline Personality dysfunction and Borderline Intellectual Functioning who returns to the unit one day after her most recent discharge, following an episode of suicidal self- laceration. Plan - Plan Treatment Plan: Name: FILOMENA WILKINSON Birthdate: 1990 [id number] Continue haloperidol decanoate 175mg IM q4wks (next due 05/21), oral olanzapine and fluoxetine. Working on placement. Continue inpatient stabilization. Continued Medication Management: Continue Outpt Medication Medications: Current Medications Acetaminophen (Tylenol Tab*) 650 mg PO Q4H PRN PRN Reason: for pain; or Temp >101 F Last Admin: 05/06/17 11:00 Dose: 650 mg Al Hydrox/Mg Hydrox/Simethicone (Maalox Plus*) 30 ml PO Q4H PRN PRN Reason: INDIGESTION Diphenhydramine HCl (Benadryl Po*) 50 mg PO Q6H PRN PRN Reason: AGITATION/ANXIETY/INSOMNIA Last Admin: 05/07/17 01:01 Dose: 50 mg Fluoxetine HCl (Prozac Cap*) 20 mg PO BID [facility] Last Admin: 05/07/17 08:18 Dose: 20 mg Haloperidol (Haldol Tab*) 5 mg PO Q6H PRN PRN Reason: AGITATION/ANXIETY/INSOMNIA Last Admin: 05/06/17 11:00 Dose: 5 mg Lorazepam (Ativan Tab(*)) 1 mg PO Q6H PRN PRN Reason: ANXIETY Last Admin: 05/07/17 08:19 Dose: 1 mg Nicotine (Nicotine Inhaler*) 10 mg INH Q2H PRN PRN Reason: CRAVING Last Admin: 05/07/17 08:17 Dose: 10 mg Nicotine (Nicotine Patch 21 Mg/24 Hr*) 1 patch TRANSDERM DAILY@0800 [facility] Last Admin: 05/07/17 08:16 Dose: 1 patch Nicotine Polacrilex (Nicotine Gum*) 4 mg PO Q2H PRN PRN Reason: CRAVING Olanzapine (Zyprexa Tab*) 5 mg PO BID [facility] Last Admin: 05/07/17 08:18 Dose: 5 mg Pharmacy Profile Note (Nicotine Patch Removal Note*) 1 note PATCH OFF 2100 [facility] Last Admin: 05/06/17 20:02 Dose: Not Given - Discharge Plan Discharge Plan: Inpatient Hospitalization
[2017-05-07] MEDS: Haloperidol TAB* 5 MG PO PRN (13:37)
[2017-05-07] MEDS: NICOTINE PO PRN ×4 (14:10→19:41)
[2017-05-07] MEDS: Acetaminophen TAB* 325 MG PO PRN (17:15)
[2017-05-07] MEDS ORDERED: chlorproMAZINE INJ* 25 MG/ML 2 ML (50 MG) IM ONE (17:30)
[2017-05-07] MEDS: Nicotine Patch Removal NOTE PATCH OFF SCH (22:21)
[2017-05-08] MEDS: OLANzapine TAB* 5 MG PO SCH ×3 (01:46→21:35)
[2017-05-08] MEDS: NICOTINE PO PRN ×7 (01:46→19:03)
[2017-05-08] MEDS: FLUoxetine CAP* 20 MG PO SCH ×3 (01:46→21:35)
[2017-05-08] MEDS: Nicotine Inhaler* 10 MG AMP INH PRN ×2 (07:56→15:44)
[2017-05-08] MEDS: diPHENhydraMINE PO* 50 MG PO PRN (07:57)
[2017-05-08] MEDS: Haloperidol TAB* 5 MG PO PRN (07:57)
[2017-05-08] MEDS: Nicotine PATCH 21 MG/24 HR* PATCH TRANSDERM SCH (08:00)
--- NOTE | 2017-05-08 13:38 | PN ---
Subjective - Subjective Service Type: 59101 Hosp care 15 min low complexity Subjective: The patient got in trouble on the unit yesterday after she was observed giving her prn Ativan pill to a female peer on the unit. When confronted, she vigorously protested and denies having done this, resulting in an episode in which she started screaming and threatening to cut herself. Later, she required chlorpromazine 100mg IM times one to get back under behavioral control. Today she is calm, polite and contrite about her behavior yesterday. She denies SI or HI. Objective - Appearance Appearance: Obese Dysmorphic Features: No Hygiene: Normal Grooming: Fairly Well Kept - Behavior Psychomotor Activities: Normal Exhibits Abnormal Movement: No - Attitude and Relatedness Attitude and Relatedness: Cooperative Eye Contact: Fair - Speech Quality: Unpressured Latencies: Normal Quantity: Appropriate - Mood Patient's Decription of Mood: "Okay" - Affect Observed Affect: Fair Affect Consistent with: Euthymia - Thought Process Patient's Thought Process: Goal Directed Thought Content: No Passive Wish, No Suicidal Planning, No Homicidal Ideation, No Paranoid Ideation - Sensorium Experiencing Hallucinations: No, Sensorium is Clear Type of Hallucinations: Visual: No, Auditory: No, Command: No - Level of Consciousness Level of Consciousness: Alert Orientation: Yes Intact, Yes Orientated to Time, Yes Orientated to Place, Yes Orientated to Person - Impulse Control Impulse Control: Tenuous - Insight and Judgement Insight and Judgement: Fair - Group Participation Particating in Group Activities: No - Medication Management Medication Management Adherence: Yes Assessment - Assessment Merits Inpatient Hospitalization: For Immediate Safety, For Stabilization Inpatient DSM-IV Dx: Unspecified Mood DO Clinical Impression: 26 y.o. single, white, homosexual female with a history of multiple prior [facility] admissions in the setting of affective instability, Borderline Personality dysfunction and Borderline Intellectual Functioning who returns to the unit one day after her most recent discharge, following an episode of suicidal self- laceration. Plan - Plan Treatment Plan: Name: FILOMENA WILKINSON Birthdate: 1990 [id number] Continue haloperidol decanoate 175mg IM q4wks (next due 05/21), oral olanzapine and fluoxetine. Working on placement. Continue inpatient stabilization. Continued Medication Management: Continue Outpt Medication Medications: Current Medications Acetaminophen (Tylenol Tab*) 650 mg PO Q4H PRN PRN Reason: for pain; or Temp >101 F Last Admin: 05/07/17 17:15 Dose: 650 mg Al Hydrox/Mg Hydrox/Simethicone (Maalox Plus*) 30 ml PO Q4H PRN PRN Reason: INDIGESTION Diphenhydramine HCl (Benadryl Po*) 50 mg PO Q6H PRN PRN Reason: AGITATION/ANXIETY/INSOMNIA Last Admin: 05/08/17 07:57 Dose: 50 mg Fluoxetine HCl (Prozac Cap*) 20 mg PO BID [facility] Last Admin: 05/08/17 07:57 Dose: 20 mg Haloperidol (Haldol Tab*) 5 mg PO Q6H PRN PRN Reason: AGITATION/ANXIETY/INSOMNIA Last Admin: 05/08/17 07:57 Dose: 5 mg Nicotine (Nicotine Inhaler*) 10 mg INH Q2H PRN PRN Reason: CRAVING Last Admin: 05/08/17 07:56 Dose: 10 mg Nicotine (Nicotine Patch 21 Mg/24 Hr*) 1 patch TRANSDERM DAILY@0800 [facility] Last Admin: 05/08/17 08:00 Dose: 1 patch Pto: Nicotine Gum (4mg Piece) 1 dose PO Q2H PRN PRN Reason: CRAVING Last Admin: 05/08/17 13:01 Dose: 1 dose Olanzapine (Zyprexa Tab*) 5 mg PO BID [facility] Last Admin: 05/08/17 07:57 Dose: 5 mg Pharmacy Profile Note (Nicotine Patch Removal Note*) 1 note PATCH OFF 2100 [facility] Last Admin: 05/07/17 22:21 Dose: Not Given - Discharge Plan Discharge Plan: Inpatient Hospitalization
[2017-05-08] MEDS: Nicotine Patch Removal NOTE PATCH OFF SCH (21:41)
[2017-05-09] MEDS: Nicotine PATCH 21 MG/24 HR* PATCH TRANSDERM SCH (08:24)
[2017-05-09] MEDS: OLANzapine TAB* 5 MG PO SCH ×2 (08:25→20:25)
[2017-05-09] MEDS: FLUoxetine CAP* 20 MG PO SCH ×2 (08:25→20:25)
[2017-05-09] MEDS: NICOTINE PO PRN ×6 (08:26→20:24)
[2017-05-09] MEDS: Nicotine Inhaler* 10 MG AMP INH PRN (10:48)
--- NOTE | 2017-05-09 13:55 | PN ---
Subjective - Subjective Service Type: [id number] Hosp care 15 min low complexity Subjective: Marly is calm and cooperative, taking meds appropriately and acting in adherence with her behavior modification plan. She denies SI or HI. Objective - Appearance Appearance: Obese Dysmorphic Features: No Hygiene: Normal Grooming: Fairly Well Kept - Behavior Psychomotor Activities: Normal Exhibits Abnormal Movement: No - Attitude and Relatedness Attitude and Relatedness: Cooperative Eye Contact: Fair - Speech Quality: Unpressured Latencies: Normal Quantity: Appropriate - Mood Patient's Decription of Mood: "Okay" - Affect Observed Affect: Fair Affect Consistent with: Euthymia - Thought Process Patient's Thought Process: Coherent Thought Content: No Passive Wish, No Suicidal Planning, No Homicidal Ideation, No Paranoid Ideation - Sensorium Experiencing Hallucinations: No, Sensorium is Clear Type of Hallucinations: Visual: No, Auditory: No, Command: No - Level of Consciousness Level of Consciousness: Alert Orientation: Yes Intact, Yes Orientated to Time, Yes Orientated to Place, Yes Orientated to Person - Impulse Control Impulse Control: Tenuous - Insight and Judgement Insight and Judgement: Fair - Group Participation Particating in Group Activities: Yes - Medication Management Medication Management Adherence: Yes Assessment - Assessment Merits Inpatient Hospitalization: Consolidate Improvements, Pending Safe DC Plan Inpatient DSM-IV Dx: Unspecified Mood DO Clinical Impression: 26 y.o. single, white, homosexual female with a history of multiple prior [facility] admissions in the setting of affective instability, Borderline Personality dysfunction and Borderline Intellectual Functioning who returns to the unit one day after her most recent discharge, following an episode of suicidal self- laceration. Plan - Plan Treatment Plan: Name: MARLY WILKINSON Birthdate: 1990 [id number] Continue haloperidol decanoate 175mg IM q4wks (next due 05/21), oral olanzapine and fluoxetine. Working on placement. Continue inpatient stabilization. Continued Medication Management: Continue Outpt Medication Medications: Current Medications Acetaminophen (Tylenol Tab*) 650 mg PO Q4H PRN PRN Reason: for pain; or Temp >101 F Last Admin: 05/07/17 17:15 Dose: 650 mg Al Hydrox/Mg Hydrox/Simethicone (Maalox Plus*) 30 ml PO Q4H PRN PRN Reason: INDIGESTION Diphenhydramine HCl (Benadryl Po*) 50 mg PO Q6H PRN PRN Reason: AGITATION/ANXIETY/INSOMNIA Last Admin: 05/08/17 07:57 Dose: 50 mg Fluoxetine HCl (Prozac Cap*) 20 mg PO BID [facility] Last Admin: 05/09/17 08:25 Dose: 20 mg Haloperidol (Haldol Tab*) 5 mg PO Q6H PRN PRN Reason: AGITATION/ANXIETY/INSOMNIA Last Admin: 05/08/17 07:57 Dose: 5 mg Nicotine (Nicotine Inhaler*) 10 mg INH Q2H PRN PRN Reason: CRAVING Last Admin: 05/09/17 10:48 Dose: 10 mg Nicotine (Nicotine Patch 21 Mg/24 Hr*) 1 patch TRANSDERM DAILY@0800 [facility] Last Admin: 05/09/17 08:24 Dose: 1 patch Pto: Nicotine Gum (4mg Piece) 1 dose PO Q2H PRN PRN Reason: CRAVING Last Admin: 05/09/17 12:25 Dose: 1 dose Olanzapine (Zyprexa Tab*) 5 mg PO BID [facility] Last Admin: 05/09/17 08:25 Dose: 5 mg Pharmacy Profile Note (Nicotine Patch Removal Note*) 1 note PATCH OFF 2100 [facility] Last Admin: 05/08/17 21:41 Dose: Not Given - Discharge Plan Discharge Plan: Inpatient Hospitalization
[2017-05-09] MEDS: Nicotine Patch Removal NOTE PATCH OFF SCH (23:10)
[2017-05-10] MEDS: NICOTINE PO PRN ×7 (03:10→18:57)
[2017-05-10] MEDS: Nicotine Inhaler* 10 MG AMP INH PRN ×3 (03:10→18:47)
[2017-05-10] MEDS: Nicotine PATCH 21 MG/24 HR* PATCH TRANSDERM SCH (08:11)
[2017-05-10] MEDS: OLANzapine TAB* 5 MG PO SCH ×2 (08:12→20:00)
[2017-05-10] MEDS: FLUoxetine CAP* 20 MG PO SCH ×2 (08:12→19:59)
[2017-05-10] MEDS: diPHENhydraMINE PO* 50 MG PO PRN (10:37)
[2017-05-10] MEDS: Haloperidol TAB* 5 MG PO PRN (10:37)
[2017-05-10] MEDS ORDERED: Haloperidol INJ IV/IM* 5 MG/ML AMP IM ONE (10:44)
[2017-05-10] MEDS ORDERED: diPHENhydraMINE IV* 50 MG/ML 1 ml VIAL (BENADRYL) IM ONE (10:45)
[2017-05-10] MEDS ORDERED: diPHENhydraMINE IV* 50 MG/ML 1 ml VIAL (BENADRYL) ONE (10:46)
[2017-05-10] MEDS ORDERED: Haloperidol INJ IV/IM* 5 MG/ML AMP ONE (10:47)
[2017-05-10] MEDS ORDERED: chlorproMAZINE TAB* 50 MG PO ONE (11:04)
[2017-05-10] MEDS ORDERED: chlorproMAZINE TAB* 50 MG ONE (11:07)
--- NOTE | 2017-05-10 14:25 | PN ---
Subjective - Subjective Service Type: [id number] Hosp care 15 min low complexity Subjective: The patient became agitated and violent, requiring seclusion in the quiet room and chemical restraint with IM haldol and Benadryl. She was demanding discharge today so that she could go to the local [employer]. My understanding is that we have plans for the [facility] to come screen her for a respite bed on Sunday of next week. Objective - Appearance Appearance: Obese Dysmorphic Features: No Hygiene: Normal Grooming: Fairly Well Kept - Behavior Psychomotor Activities: Normal Exhibits Abnormal Movement: No - Attitude and Relatedness Attitude and Relatedness: Regressed Eye Contact: Poor - Speech Quality: Pressured Latencies: Short Quantity: Copious - Mood Patient's Decription of Mood: "Angry" - Affect Observed Affect: Labile Affect Consistent with: Dysphoria - Thought Process Patient's Thought Process: Tangential Thought Content: No Passive Wish, No Suicidal Planning, No Homicidal Ideation, No Paranoid Ideation - Sensorium Experiencing Hallucinations: No, Sensorium is Clear Type of Hallucinations: Visual: No, Auditory: No, Command: No - Level of Consciousness Level of Consciousness: Agitated Orientation: Yes Intact, Yes Orientated to Time, Yes Orientated to Place, Yes Orientated to Person - Impulse Control Impulse Control: Poor - Insight and Judgement Insight and Judgement: Impaired - Group Participation Particating in Group Activities: No - Medication Management Medication Management Adherence: Yes Assessment - Assessment Merits Inpatient Hospitalization: For Immediate Safety, For Stabilization Inpatient DSM-IV Dx: Unspecified Mood DO Clinical Impression: 26 y.o. single, white, homosexual female with a history of multiple prior [facility] admissions in the setting of affective instability, Borderline Personality dysfunction and Borderline Intellectual Functioning who returns to the unit one day after her most recent discharge, following an episode of suicidal self- laceration. Plan - Plan Treatment Plan: Name: FILOMENA WILKINSON Birthdate: 1990 [id number] Continue haloperidol decanoate 175mg IM q4wks (next due 05/21), oral olanzapine and fluoxetine. Working on placement. Continue inpatient stabilization. Continued Medication Management: Continue Outpt Medication Medications: Current Medications Acetaminophen (Tylenol Tab*) 650 mg PO Q4H PRN PRN Reason: for pain; or Temp >101 F Last Admin: 05/07/17 17:15 Dose: 650 mg Al Hydrox/Mg Hydrox/Simethicone (Maalox Plus*) 30 ml PO Q4H PRN PRN Reason: INDIGESTION Diphenhydramine HCl (Benadryl Po*) 50 mg PO Q6H PRN PRN Reason: AGITATION/ANXIETY/INSOMNIA Last Admin: 05/08/17 07:57 Dose: 50 mg Fluoxetine HCl (Prozac Cap*) 20 mg PO BID [facility] Last Admin: 05/10/17 08:12 Dose: 20 mg Haloperidol (Haldol Tab*) 5 mg PO Q6H PRN PRN Reason: AGITATION/ANXIETY/INSOMNIA Last Admin: 05/08/17 07:57 Dose: 5 mg Nicotine (Nicotine Inhaler*) 10 mg INH Q2H PRN PRN Reason: CRAVING Last Admin: 05/10/17 12:40 Dose: 10 mg Nicotine (Nicotine Patch 21 Mg/24 Hr*) 1 patch TRANSDERM DAILY@0800 [facility] Last Admin: 05/10/17 08:11 Dose: 1 patch Pto: Nicotine Gum (4mg Piece) 1 dose PO Q2H PRN PRN Reason: CRAVING Last Admin: 05/10/17 12:40 Dose: 1 dose Olanzapine (Zyprexa Tab*) 5 mg PO BID [facility] Last Admin: 05/10/17 08:12 Dose: 5 mg Pharmacy Profile Note (Nicotine Patch Removal Note*) 1 note PATCH OFF 2100 [facility] Last Admin: 05/09/17 23:10 Dose: Not Given - Discharge Plan Discharge Plan: Inpatient Hospitalization
[2017-05-10] MEDS: Acetaminophen TAB* 325 MG PO PRN (18:01)
[2017-05-10] MEDS: Nicotine Patch Removal NOTE PATCH OFF SCH (20:00)
[2017-05-11] MEDS: NICOTINE PO PRN ×5 (07:30→19:40)
[2017-05-11] MEDS: Nicotine PATCH 21 MG/24 HR* PATCH TRANSDERM SCH (08:13)
[2017-05-11] MEDS: OLANzapine TAB* 5 MG PO SCH ×2 (08:14→20:38)
[2017-05-11] MEDS: FLUoxetine CAP* 20 MG PO SCH ×2 (08:14→20:38)
--- NOTE | 2017-05-11 13:34 | PN ---
Subjective - Subjective Service Type: [id number] Hosp care 15 min low complexity Subjective: Patient in good spirits. OK with meeting with [facility] on Sunday. Denies SI or thoughts of self-harm. Behavior well controlled with B-Mod. Objective - Appearance Appearance: Obese Dysmorphic Features: No Hygiene: Normal Grooming: Fairly Well Kept - Behavior Psychomotor Activities: Normal Exhibits Abnormal Movement: No - Attitude and Relatedness Attitude and Relatedness: Cooperative Eye Contact: Fair - Speech Quality: Unpressured Latencies: Normal Quantity: Appropriate - Mood Patient's Decription of Mood: "Good" - Affect Observed Affect: Fair Affect Consistent with: Euthymia - Thought Process Patient's Thought Process: Coherent Thought Content: No Passive Wish, No Suicidal Planning, No Homicidal Ideation, No Paranoid Ideation - Sensorium Experiencing Hallucinations: No, Sensorium is Clear Type of Hallucinations: Visual: No, Auditory: No, Command: No - Level of Consciousness Level of Consciousness: Alert Orientation: Yes Intact, Yes Orientated to Time, Yes Orientated to Place, Yes Orientated to Person - Impulse Control Impulse Control: Tenuous - Insight and Judgement Insight and Judgement: Fair - Group Participation Particating in Group Activities: Yes - Medication Management Medication Management Adherence: Yes Assessment - Assessment Merits Inpatient Hospitalization: Consolidate Improvements, Pending Safe DC Plan Inpatient DSM-IV Dx: Unspecified Mood DO Clinical Impression: 26 y.o. single, white, homosexual female with a history of multiple prior [facility] admissions in the setting of affective instability, Borderline Personality dysfunction and Borderline Intellectual Functioning who returns to the unit one day after her most recent discharge, following an episode of suicidal self- laceration. Plan - Plan Treatment Plan: Name: FILOMENA WILKINSON Birthdate: 1990 [id number] Continue haloperidol decanoate 175mg IM q4wks (next due 05/21), oral olanzapine and fluoxetine. Working on placement. Continue inpatient stabilization. Continued Medication Management: Continue Outpt Medication Medications: Current Medications Acetaminophen (Tylenol Tab*) 650 mg PO Q4H PRN PRN Reason: for pain; or Temp >101 F Last Admin: 05/10/17 18:01 Dose: 650 mg Al Hydrox/Mg Hydrox/Simethicone (Maalox Plus*) 30 ml PO Q4H PRN PRN Reason: INDIGESTION Last Admin: 05/11/17 09:12 Dose: 30 ml Diphenhydramine HCl (Benadryl Po*) 50 mg PO Q6H PRN PRN Reason: AGITATION/ANXIETY/INSOMNIA Last Admin: 05/08/17 07:57 Dose: 50 mg Fluoxetine HCl (Prozac Cap*) 20 mg PO BID [facility] Last Admin: 05/11/17 08:14 Dose: 20 mg Haloperidol (Haldol Tab*) 5 mg PO Q6H PRN PRN Reason: AGITATION/ANXIETY/INSOMNIA Last Admin: 05/08/17 07:57 Dose: 5 mg Nicotine (Nicotine Inhaler*) 10 mg INH Q2H PRN PRN Reason: CRAVING Last Admin: 05/10/17 18:47 Dose: 10 mg Nicotine (Nicotine Patch 21 Mg/24 Hr*) 1 patch TRANSDERM DAILY@0800 [facility] Last Admin: 05/11/17 08:13 Dose: 1 patch Pto: Nicotine Gum (4mg Piece) 1 dose PO Q2H PRN PRN Reason: CRAVING Last Admin: 05/11/17 12:40 Dose: 1 dose Olanzapine (Zyprexa Tab*) 5 mg PO BID [facility] Last Admin: 05/11/17 08:14 Dose: 5 mg Pharmacy Profile Note (Nicotine Patch Removal Note*) 1 note PATCH OFF 2100 [facility] Last Admin: 05/10/17 20:00 Dose: 1 note - Discharge Plan Discharge Plan: Inpatient Hospitalization
[2017-05-11] MEDS: Haloperidol TAB* 5 MG PO PRN (16:14)
[2017-05-11] MEDS: diPHENhydraMINE PO* 50 MG PO PRN (17:13)
[2017-05-11] MEDS: Nicotine Inhaler* 10 MG AMP INH PRN (18:14)
[2017-05-11] MEDS: Nicotine Patch Removal NOTE PATCH OFF SCH (22:25)
[2017-05-12] MEDS: FLUoxetine CAP* 20 MG PO SCH ×2 (10:29→19:16)
[2017-05-12] MEDS: OLANzapine TAB* 5 MG PO SCH ×2 (10:29→19:16)
[2017-05-12] MEDS: Nicotine PATCH 21 MG/24 HR* PATCH TRANSDERM SCH (10:29)
[2017-05-12] MEDS: NICOTINE PO PRN ×5 (10:32→19:18)
[2017-05-12] MEDS: Nicotine Inhaler* 10 MG AMP INH PRN ×2 (11:06→19:36)
[2017-05-12] MEDS: diPHENhydraMINE PO* 50 MG PO PRN (12:31)
[2017-05-12] MEDS: Acetaminophen TAB* 325 MG PO PRN (15:57)
[2017-05-12] MEDS: Haloperidol TAB* 5 MG PO PRN (19:16)
[2017-05-12] MEDS: Nicotine Patch Removal NOTE PATCH OFF SCH (19:39)
[2017-05-12 21:39] LABS: Urine Bacteria 1+ (Absent); Urine Bilirubin Negative (Negative); Urine Glucose Negative (Negative); Urine Nitrite Positive (Negative)
[2017-05-13] MEDS: Nicotine PATCH 21 MG/24 HR* PATCH TRANSDERM SCH ×2 (08:17→08:57)
[2017-05-13] MEDS: OLANzapine TAB* 5 MG PO SCH ×2 (08:17→19:46)
[2017-05-13] MEDS: FLUoxetine CAP* 20 MG PO SCH ×2 (08:17→19:38)
[2017-05-13] MEDS: NICOTINE PO PRN ×5 (08:18→17:40)
[2017-05-13] MEDS: Nicotine Inhaler* 10 MG AMP INH PRN ×3 (08:19→18:26)
[2017-05-13 09:56] VITALS: BP 142/80
[2017-05-13] MEDS: Haloperidol TAB* 5 MG PO PRN (13:56)
[2017-05-13] MEDS: Acetaminophen TAB* 325 MG PO PRN (17:47)
[2017-05-13] MEDS: diPHENhydraMINE PO* 50 MG PO PRN (18:18)
[2017-05-13] MEDS: Cephalexin CAP* 500 MG PO SCH (19:38)
[2017-05-13] MEDS: Nicotine Patch Removal NOTE PATCH OFF SCH (19:49)
[2017-05-14] MEDS: Acetaminophen TAB* 325 MG PO PRN (06:55)
[2017-05-14] MEDS: NICOTINE PO PRN ×6 (06:55→19:12)
[2017-05-14] MEDS: Cephalexin CAP* 500 MG PO SCH (07:38)
[2017-05-14] MEDS: OLANzapine TAB* 5 MG PO SCH (07:38)
[2017-05-14] MEDS: Nicotine PATCH 21 MG/24 HR* PATCH TRANSDERM SCH (07:38)
[2017-05-14] MEDS: FLUoxetine CAP* 20 MG PO SCH (07:38)
[2017-05-14] MEDS: Nicotine Inhaler* 10 MG AMP INH PRN ×2 (07:40→13:57)
[2017-05-14] MEDS: Sulfamethox/Trimethoprim DS 800/160* TAB PO SCH (11:48)
--- NOTE | 2017-05-14 11:53 | PN ---
Subjective - Subjective Service Type: [id number] Hosp care 15 min low complexity Subjective: Marly complains of urinary discomfort from her catheter. Urine cultures indicate she has MRSA UTI. Patient denies SI or HI and requests discharge to home. Awaits meeting with the [facility] for respite care this afternoon. Objective - Appearance Appearance: Obese Dysmorphic Features: No Hygiene: Normal Grooming: Fairly Well Kept - Behavior Psychomotor Activities: Normal Exhibits Abnormal Movement: No - Attitude and Relatedness Attitude and Relatedness: Cooperative Eye Contact: Fair - Speech Quality: Unpressured Latencies: Normal Quantity: Appropriate - Mood Patient's Decription of Mood: "Good" - Affect Observed Affect: Good Affect Consistent with: Euthymia - Thought Process Patient's Thought Process: Coherent Thought Content: No Passive Wish, No Suicidal Planning, No Homicidal Ideation, No Paranoid Ideation - Sensorium Experiencing Hallucinations: No, Sensorium is Clear Type of Hallucinations: Visual: No, Auditory: No, Command: No - Level of Consciousness Level of Consciousness: Alert Orientation: Yes Intact, Yes Orientated to Time, Yes Orientated to Place, Yes Orientated to Person - Impulse Control Impulse Control: Tenuous - Insight and Judgement Insight and Judgement: Fair - Group Participation Particating in Group Activities: Yes - Medication Management Medication Management Adherence: Yes Assessment - Assessment Merits Inpatient Hospitalization: Consolidate Improvements, Pending Safe DC Plan Inpatient DSM-IV Dx: Unspecified Mood DO Clinical Impression: 26 y.o. single, white, homosexual female with a history of multiple prior [facility] admissions in the setting of affective instability, Borderline Personality dysfunction and Borderline Intellectual Functioning who returns to the unit one day after her most recent discharge, following an episode of suicidal self- laceration. Plan - Plan Treatment Plan: Name: MARLY WILKINSON Birthdate: 1990 [id number] Continue haloperidol decanoate 175mg IM q4wks (next due 05/21), oral olanzapine and fluoxetine. Working on placement. Continue inpatient stabilization. Continued Medication Management: Continue Outpt Medication Medications: Current Medications Acetaminophen (Tylenol Tab*) 650 mg PO Q4H PRN PRN Reason: for pain; or Temp >101 F Last Admin: 05/14/17 06:55 Dose: 650 mg Al Hydrox/Mg Hydrox/Simethicone (Maalox Plus*) 30 ml PO Q4H PRN PRN Reason: INDIGESTION Last Admin: 05/11/17 09:12 Dose: 30 ml Diphenhydramine HCl (Benadryl Po*) 50 mg PO Q6H PRN PRN Reason: AGITATION/ANXIETY/INSOMNIA Last Admin: 05/13/17 18:18 Dose: 50 mg Fluoxetine HCl (Prozac Cap*) 20 mg PO BID [facility] Last Admin: 05/14/17 07:38 Dose: 20 mg Haloperidol (Haldol Tab*) 5 mg PO Q6H PRN PRN Reason: AGITATION/ANXIETY/INSOMNIA Last Admin: 05/13/17 13:56 Dose: 5 mg Nicotine (Nicotine Inhaler*) 10 mg INH Q2H PRN PRN Reason: CRAVING Last Admin: 05/14/17 07:40 Dose: 10 mg Nicotine (Nicotine Patch 21 Mg/24 Hr*) 1 patch TRANSDERM DAILY@0800 [facility] Last Admin: 05/14/17 07:38 Dose: 1 patch Pto: Nicotine Gum (4mg Piece) 1 dose PO Q2H PRN PRN Reason: CRAVING Last Admin: 05/14/17 10:51 Dose: 1 dose Olanzapine (Zyprexa Tab*) 5 mg PO BID [facility] Last Admin: 05/14/17 07:38 Dose: 5 mg Pharmacy Profile Note (Nicotine Patch Removal Note*) 1 note PATCH OFF 2100 [facility] Last Admin: 05/13/17 19:49 Dose: 1 note Trimethoprim/Sulfamethoxazole (Bactrim Ds 800/160 Tab*) 1 tab PO BID [facility] - Discharge Plan Discharge Plan: Outpatient Follow Up Outpatient Program: [facility]
[2017-05-14] MEDS ORDERED: chlorproMAZINE INJ* 25 MG/ML 2 ML (50 MG) ONE ×2 (15:04→16:32)
[2017-05-14] MEDS: diPHENhydraMINE PO* 50 MG PO PRN (15:12)
[2017-05-14] MEDS: Haloperidol TAB* 5 MG PO PRN (15:12)
[2017-05-14] MEDS ORDERED: chlorproMAZINE INJ* 25 MG/ML 2 ML (50 MG) IM ONE (16:30)
--- NOTE | 2017-05-14 16:44 | CONS ---
CC: Dr. Harp * CONSULTATION REPORT: DATE OF CONSULT: 05/14/17 DATE OF ADMISSION: To the [facility] was 05/04/17 PRIMARY CARE PROVIDER: None. REQUESTING PHYSICIAN IN CONSULT: Dr. Harp. ATTENDING PHYSICIAN WHILE IN THE HOSPITAL: Dr. Paul Houser (report being dictated by Jakub Torre NP). REASON FOR MEDICAL CONSULT: Evaluation of patient's UTI and indwelling Sabillon. HISTORY OF PRESENT ILLNESS: Ms. Pérez is a 26-year-old female patient well known to the B[facility] in to our service with multiple psychiatric admissions, who has a history of borderline personality disorder. She has self-mutilation. She has a history of PTSD and depression along with history of seizures. She came into the ED on 05/04/17 after she was just discharged from the BSU. She said she could not take it out there. She started cutting herself. She was very anxious. She was admitted back to the BSU for stabilization. While in the ER according to notes, the patient had complained that she had not urinated for several days and a bladder scan showed there was 500 cc in the bladder, so catheter was placed and this has been in place since 05/04/17. Urine was obtained actually on 05/12/17, and the urine at that point was positive. She was started on antibiotics and then cultures came back today, which did show MRSA, so we were asked to evaluate in consult. On evaluating the patient, she does state the Sabillon is irritating her. She denies having any flank pain. Denies any fevers or chills. She said she is having pelvic discomfort. She denies having any abdominal pain and there has been no nausea or vomiting. She denies having any fevers or chills or any chest discomfort. She denied any chest pain or shortness of breath and says that she has been taking her medications. She does state that the urine to her looked cloudy and denied having any discharge near the catheter or in the vaginal area. Because of the UTI and her medical complexity, we were asked to evaluate in consult. PAST MEDICAL HISTORY: Significant for: 1. Borderline personality disorder. 2. PTSD. 3. Depression. 4. History of seizure. PAST SURGICAL HISTORY: Denies. MEDICATIONS: Her home medications according to the list include: 1. Topamax 50 mg p.o. twice a day. 2. Zyprexa 5 mg p.o. daily. 3. Prozac 20 mg p.o. b.i.d. ALLERGIES TO MEDICATIONS: Include PENICILLIN, LATEX, and LACTOSE. FAMILY HISTORY: She is adopted. SOCIAL HISTORY: She is a [id number]-day smoker. Denies any alcohol or recreational drug abuse. She does not appoint a surrogate decision maker. REVIEW OF SYSTEMS: There is no documented fever. She denied having any significant weight change. There was no double vision. She denies having any ear discharge. There has been no rhinorrhea, no sore throat, no thyroid enlargement. Denies having any chest pain. No orthopnea. There is no nocturnal dyspnea. There is no abdominal pain. She does admit to having pelvic pain. Denies having any dysuria or any frequency. No loss of consciousness. No pruritus and no skin ulceration. Review of 14 systems completed, all others negative. PHYSICAL EXAM: Vital Signs: Blood pressure 142/80, pulse 65, respirations 16, O2 sat 98%, temperature 97.3. General: At this time, Ms. Pérez is a 26-year- old female patient. She is sitting in the BSU, she does not appear to be in any acute distress. HEENT: Head, atraumatic, normocephalic. Eyes: EOMs intact. Sclerae anicteric, not pale. Neck: Supple. Throat: Oral mucosa appears to be moist. No oropharyngeal erythema. Heart: Sounds S1, S2. Regular rate and rhythm. No murmurs, rubs, or gallops. Lungs: Clear to auscultation bilaterally. No wheezes, rales, or rhonchi. Abdomen: Soft, flat , nontender. Bowel sounds present. Extremities: Pulses were 2+ throughout. No peripheral edema. She has multiple abrasions and scars to her upper extremities. External vaginal exam, she would not allow me to do bimanual exam ; however, I did not appreciate any vaginal discharge or irritation. Neurologically, she is awake, alert, oriented x3. Tongue midline. Thermal Cutter Hand were equal. No gross focal deficits. The skin is intact. LABORATORY DATA: Most recently revealed WBC 12.7, RBC of 4.60, hemoglobin 13.2 , hematocrit of 40, platelet count of 329. Sodium was 137, potassium 4.1, chloride 108, bicarb 22, BUN 10, creatinine 0.74, glucose of 95, calcium 9.5. Total bili 0.3, AST 16, ALT 22, alk phos 74. TSH 0.85. Urine was 1+ blood, positive nitrite, 1+ leukocyte esterase, 2+ wbc's, 3+ rbc's, 1+ bacteria. Toxicology was negative. She did have microbiology obtained today, which did show normal devonte and greater than 100, 000 colonies of MRSA, which was susceptible to Bactrim and linezolid. Old medical records were reviewed. ASSESSMENT AND PLAN: Ms. Pérez is a 26-year-old female patient well known to our BSU unit and well known to the hospitalist service presenting to the B[facility] with self- mutilation again and cutting. She was admitted for stabilization. Whilst in the ER, it was noted that she had some urinary retention and the catheter was placed and now it appears that UA and urine culture showing methicillin-resistant Staphylococcus aureus. We were asked to evaluate in consult. Our recommendations at this point are: 1. Borderline personality, posttraumatic stress disorder, and depression. I will defer the further management of this to the psychiatric team expertise. 2. Methicillin-resistant Staphylococcus aureus urinary tract infection. At this point, I am going to go ahead and start the patient on Bactrim double strength b.i.d. She will need to be on this for 10 days. I will monitor for any fevers, worsening abdominal discomfort. 3. Urinary retention. She had 500 cc in the bladder. I am going to actually going to pull the catheter and get bladder scan studies on her to see if she is truly retaining postvoid and monitor. If she is, we will place the catheter back in and she will need to be set up with Urology in the outpatient setting. 4. DVT prophylaxis. Per the primary team. 5. Fluids, electrolytes, and nutrition. She can have a regular diet. TIME SPENT: On consult 60 minutes, greater than half the time spent face-to- face with the patient obtaining history and physical; other half time spent going over the plan of care with the patient and implementing the plan of care. I did discuss this plan of care with my attending, Dr. Houser; he is in agreement. JAKUB TORRE, RENAE [id number]/[facility] #: [id number] NEIL
[2017-05-15] MEDS: FLUoxetine CAP* 20 MG PO SCH ×3 (00:38→20:10)
[2017-05-15] MEDS: OLANzapine TAB* 5 MG PO SCH ×3 (00:38→20:10)
[2017-05-15] MEDS: Sulfamethox/Trimethoprim DS 800/160* TAB PO SCH ×3 (00:39→20:10)
[2017-05-15] MEDS: Nicotine Patch Removal NOTE PATCH OFF SCH ×2 (00:40→20:11)
[2017-05-15] MEDS: Nicotine PATCH 21 MG/24 HR* PATCH TRANSDERM SCH (08:53)
[2017-05-15] MEDS: NICOTINE PO PRN ×6 (08:54→20:09)
[2017-05-15] MEDS: Haloperidol TAB* 5 MG PO PRN (09:21)
[2017-05-15] MEDS: diPHENhydraMINE PO* 50 MG PO PRN (09:21)
[2017-05-15] MEDS ORDERED: chlorproMAZINE TAB* 100 MG ONE (09:28)
[2017-05-15] MEDS ORDERED: chlorproMAZINE TAB* 100 MG PO ONE (09:30)
[2017-05-15] MEDS: Nicotine Inhaler* 10 MG AMP INH PRN ×2 (09:30→16:01)
--- NOTE | 2017-05-15 11:19 | PN ---
Subjective - Subjective Service Type: 12616 Hosp care 15 min low complexity Subjective: Patient very anxious and hostile, demanding discharge. Doesn't want to wait for the locks to be changed at the [facility] apartment, to which she was accepted yesterday. Instead she wants immediate discharge to her mother's. We were unable to confirm her mother's acceptance of this. She was extremely agitated yesterday, necessitating prn antipsychotic medication. Today she denies SI or HI. Objective - Appearance Appearance: Obese Dysmorphic Features: No Hygiene: Normal Grooming: Fairly Well Kept - Behavior Psychomotor Activities: Normal Exhibits Abnormal Movement: No - Attitude and Relatedness Attitude and Relatedness: Manipulative Eye Contact: Fair - Speech Quality: Unpressured Latencies: Normal Quantity: Copious - Mood Patient's Decription of Mood: "Angry" - Affect Observed Affect: Labile Affect Consistent with: Dysphoria - Thought Process Patient's Thought Process: Coherent, Goal Directed Thought Content: No Passive Wish, No Suicidal Planning, No Homicidal Ideation, No Paranoid Ideation - Sensorium Experiencing Hallucinations: No, Sensorium is Clear Type of Hallucinations: Visual: No, Auditory: No, Command: No - Level of Consciousness Level of Consciousness: Agitated Orientation: Yes Intact, Yes Orientated to Time, Yes Orientated to Place, Yes Orientated to Person - Impulse Control Impulse Control: Poor - Insight and Judgement Insight and Judgement: Impaired - Group Participation Particating in Group Activities: No - Medication Management Medication Management Adherence: Yes Assessment - Assessment Merits Inpatient Hospitalization: Consolidate Improvements, Pending Safe DC Plan Inpatient DSM-IV Dx: Unspecified Mood DO Clinical Impression: 26 y.o. single, white, homosexual female with a history of multiple prior [facility] admissions in the setting of affective instability, Borderline Personality dysfunction and Borderline Intellectual Functioning who returns to the unit one day after her most recent discharge, following an episode of suicidal self- laceration. Plan - Plan Treatment Plan: Name: FILOMENA WILKINSON Birthdate: 1990 [id number] Continue haloperidol decanoate 175mg IM q4wks (next due 05/21), oral olanzapine and fluoxetine. Working on placement. Appreciate medical consult from hospitalist team who started patient on Bactrim for UTI. Continue inpatient stabilization. Continued Medication Management: Continue Outpt Medication Medications: Current Medications Acetaminophen (Tylenol Tab*) 650 mg PO Q4H PRN PRN Reason: for pain; or Temp >101 F Last Admin: 05/14/17 06:55 Dose: 650 mg Al Hydrox/Mg Hydrox/Simethicone (Maalox Plus*) 30 ml PO Q4H PRN PRN Reason: INDIGESTION Last Admin: 05/11/17 09:12 Dose: 30 ml Diphenhydramine HCl (Benadryl Po*) 50 mg PO Q6H PRN PRN Reason: AGITATION/ANXIETY/INSOMNIA Last Admin: 05/15/17 09:21 Dose: 50 mg Fluoxetine HCl (Prozac Cap*) 20 mg PO BID [facility] Last Admin: 05/15/17 08:54 Dose: 20 mg Haloperidol (Haldol Tab*) 5 mg PO Q6H PRN PRN Reason: AGITATION/ANXIETY/INSOMNIA Last Admin: 05/15/17 09:21 Dose: 5 mg Nicotine (Nicotine Inhaler*) 10 mg INH Q2H PRN PRN Reason: CRAVING Last Admin: 05/15/17 09:30 Dose: 10 mg Nicotine (Nicotine Patch 21 Mg/24 Hr*) 1 patch TRANSDERM DAILY@0800 [facility] Last Admin: 05/15/17 08:53 Dose: 1 patch Pto: Nicotine Gum (4mg Piece) 1 dose PO Q2H PRN PRN Reason: CRAVING Last Admin: 05/15/17 10:52 Dose: 1 dose Olanzapine (Zyprexa Tab*) 5 mg PO BID [facility] Last Admin: 05/15/17 08:54 Dose: 5 mg Pharmacy Profile Note (Nicotine Patch Removal Note*) 1 note PATCH OFF 2100 [facility] Last Admin: 05/15/17 00:40 Dose: Not Given Trimethoprim/Sulfamethoxazole (Bactrim Ds 800/160 Tab*) 1 tab PO BID [facility] Last Admin: 05/15/17 08:54 Dose: 1 tab - Discharge Plan Discharge Plan: Outpatient Follow Up Outpatient Program: [facility]
--- NOTE | 2017-05-15 17:01 | PN ---
Subjective Date of Service: 05/15/17 Interval History: Patient seen and discussed her symptoms. Pt reports vaginal discomfort and dysuria. Denies fever, chills, shortness of breath, chest discomfort, N/V/D. Pt states that she feels like she is not urinating very much. Marly is very anxious to get discharged. Pt declined a physical exam. Family History: Unchanged from Admission Social History: Unchanged from Admission Past Medical History: Unchanged from Admission Objective Active Medications: Acetaminophen (Tylenol Tab*) 650 mg PO Q4H PRN Reason: for pain; or Temp >101 F Al Hydrox/Mg Hydrox/Simethicone (Maalox Plus*) 30 ml PO Q4H PRN Reason: INDIGESTION Diphenhydramine HCl (Benadryl Po*) 50 mg PO Q6H PRN Reason: AGITATION/ANXIETY/ INSOMNIA Fluoxetine HCl (Prozac Cap*) 20 mg PO BID [facility] Haloperidol (Haldol Tab*) 5 mg PO Q6H PRN Reason: AGITATION/ANXIETY/INSOMNIA Nicotine (Nicotine Inhaler*) 10 mg INH Q2H PRN Reason: CRAVING Nicotine (Nicotine Patch 21 Mg/24 Hr*) 1 patch TRANSDERM DAILY@0800 [facility] Pto: Nicotine Gum (4mg Piece) 1 dose PO Q2H PRN Reason: CRAVING Olanzapine (Zyprexa Tab*) 5 mg PO BID [facility] Pharmacy Profile Note (Nicotine Patch Removal Note*) 1 note PATCH OFF 2100 [facility] Trimethoprim/Sulfamethoxazole (Bactrim Ds 800/160 Tab*) 1 tab PO BID [facility] Vital Signs 05/14/17 05/14/17 05/15/17 17:12 17:32 09:21 Respiratory 18 16 16 Rate 05/15/17 09:33 Respiratory 16 Rate Oxygen Devices in Use Now: None Neurological: Alert and Oriented x 3 Nutrition: Taking PO's Result Diagrams: 05/04/17 12:34 05/04/17 12:34 Microbiology and Other Data: Microbiology 05/12/17 17:30 Urine Culture - Final Urine MRSA Normal Rahel Assess/Plan/Problems-Billing Assessment: Ms. Pérez is a 26 yo female with PMH significant for borderline personality disorder, PTSD, depression and seizure disorder who presented to the emergency room after a suicide attempt. Hospitalists were asked to consult on the patient regarding her MRSA UTI and urinary retention. - Patient Problems (1) Borderline personality disorder Code(s): HRA4566 - SNOMED Code(s): 20150939 Comment: - With PTDS and depression. - Managment per Psychiatry. (2) UTI (urinary tract infection) Comment: - Afebrile - Monitor for increased abdominal pain and fevers - Urine culture with MRSA > 100,000 - Continue Bactrim DS for a total of 10 days (3) Urinary retention Code(s): R33.9 - RETENTION OF URINE, UNSPECIFIED SNOMED Code(s): 691637166 Comment: - Bladder scan shows volume of ~ 150 ml. (4) History of seizure Code(s): Z87.898 - PERSONAL HISTORY OF OTHER SPECIFIED CONDITIONS SNOMED Code( s): 283069588 (5) Obesity Code(s): E66.9 - OBESITY, UNSPECIFIED SNOMED Code(s): 133768114 Comment: - BMI 33 (6) Full code status Code(s): Z78.9 - OTHER SPECIFIED HEALTH STATUS SNOMED Code(s): 093729257 Status and Disposition: Inpatient. Disposition per Psychiatry. Will sign off at this time, please call with any questions.
[2017-05-15] MEDS ORDERED: Ibuprofen TAB* 600 MG PO PRN (17:58)
[2017-05-16] MEDS: Nicotine Inhaler* 10 MG AMP INH PRN ×3 (07:21→18:55)
[2017-05-16] MEDS: Nicotine PATCH 21 MG/24 HR* PATCH TRANSDERM SCH (07:22)
[2017-05-16] MEDS: OLANzapine TAB* 5 MG PO SCH ×2 (07:22→20:57)
[2017-05-16] MEDS: FLUoxetine CAP* 20 MG PO SCH ×2 (07:22→20:56)
[2017-05-16] MEDS: Sulfamethox/Trimethoprim DS 800/160* TAB PO SCH ×2 (07:22→20:56)
[2017-05-16] MEDS: NICOTINE PO PRN ×6 (07:22→19:27)
--- NOTE | 2017-05-16 11:19 | PN ---
Subjective - Subjective Service Type: 76083 Hosp care 15 min low complexity Subjective: Patient continues to be anxious and pacing. Repeatedly requesting discharge to her mothers where she states she can await availability of respite housing. She requires frequent redirection from the staff. She denies SI or HI and is taking meds as prescribed, although frequently requesting additional meds in the form of prn thorazine. Objective - Appearance Appearance: Obese Dysmorphic Features: No Hygiene: Normal Grooming: Fairly Well Kept - Behavior Psychomotor Activities: Normal Exhibits Abnormal Movement: No - Attitude and Relatedness Attitude and Relatedness: Child Like Eye Contact: Fair - Speech Quality: Unpressured Latencies: Normal Quantity: Appropriate - Mood Patient's Decription of Mood: "Anxious" - Affect Observed Affect: Labile Affect Consistent with: Dysphoria - Thought Process Patient's Thought Process: Goal Directed Thought Content: No Passive Wish, No Suicidal Planning, No Homicidal Ideation, No Paranoid Ideation - Sensorium Experiencing Hallucinations: No, Sensorium is Clear Type of Hallucinations: Visual: No, Auditory: No, Command: No - Level of Consciousness Level of Consciousness: Alert Orientation: Yes Intact, Yes Orientated to Time, Yes Orientated to Place, Yes Orientated to Person - Impulse Control Impulse Control: Poor - Insight and Judgement Insight and Judgement: Impaired - Group Participation Particating in Group Activities: No - Medication Management Medication Management Adherence: Yes Assessment - Assessment Merits Inpatient Hospitalization: Consolidate Improvements, Pending Safe DC Plan Inpatient DSM-IV Dx: Unspecified Mood DO Clinical Impression: 26 y.o. single, white, homosexual female with a history of multiple prior [facility] admissions in the setting of affective instability, Borderline Personality dysfunction and Borderline Intellectual Functioning who returns to the unit one day after her most recent discharge, following an episode of suicidal self- laceration. Plan - Plan Treatment Plan: Name: FILOMENA WILKINSON Birthdate: 1990 [id number] Continue haloperidol decanoate 175mg IM q4wks (next due 05/21), oral olanzapine and fluoxetine. Working on placement. Appreciate medical consult from hospitalist team who started patient on Bactrim for UTI. Continue inpatient stabilization. Continued Medication Management: Continue Outpt Medication Medications: Current Medications Acetaminophen (Tylenol Tab*) 650 mg PO Q4H PRN PRN Reason: for pain; or Temp >101 F Last Admin: 05/14/17 06:55 Dose: 650 mg Al Hydrox/Mg Hydrox/Simethicone (Maalox Plus*) 30 ml PO Q4H PRN PRN Reason: INDIGESTION Last Admin: 05/11/17 09:12 Dose: 30 ml Diphenhydramine HCl (Benadryl Po*) 50 mg PO Q6H PRN PRN Reason: AGITATION/ANXIETY/INSOMNIA Last Admin: 05/15/17 09:21 Dose: 50 mg Fluoxetine HCl (Prozac Cap*) 20 mg PO BID [facility] Last Admin: 05/16/17 07:22 Dose: 20 mg Haloperidol (Haldol Tab*) 5 mg PO Q6H PRN PRN Reason: AGITATION/ANXIETY/INSOMNIA Last Admin: 05/15/17 09:21 Dose: 5 mg Ibuprofen (Motrin Tab*) 600 mg PO Q6H PRN PRN Reason: PAIN Nicotine (Nicotine Inhaler*) 10 mg INH Q2H PRN PRN Reason: CRAVING Last Admin: 05/16/17 07:21 Dose: 10 mg Nicotine (Nicotine Patch 21 Mg/24 Hr*) 1 patch TRANSDERM DAILY@0800 [facility] Last Admin: 05/16/17 07:22 Dose: 1 patch Pto: Nicotine Gum (4mg Piece) 1 dose PO Q2H PRN PRN Reason: CRAVING Last Admin: 05/16/17 11:00 Dose: 1 dose Olanzapine (Zyprexa Tab*) 5 mg PO BID [facility] Last Admin: 05/16/17 07:22 Dose: 5 mg Pharmacy Profile Note (Nicotine Patch Removal Note*) 1 note PATCH OFF 2100 [facility] Last Admin: 05/15/17 20:11 Dose: Not Given Trimethoprim/Sulfamethoxazole (Bactrim Ds 800/160 Tab*) 1 tab PO BID [facility] Last Admin: 05/16/17 07:22 Dose: 1 tab - Discharge Plan Discharge Plan: Outpatient Follow Up Outpatient Program: [facility]
[2017-05-16] MEDS: Nicotine Patch Removal NOTE PATCH OFF SCH (21:04)
[2017-05-17] MEDS: NICOTINE PO PRN ×3 (07:31→11:39)
[2017-05-17] MEDS: Nicotine PATCH 21 MG/24 HR* PATCH TRANSDERM SCH (08:36)
[2017-05-17] MEDS: OLANzapine TAB* 5 MG PO SCH (08:37)
[2017-05-17] MEDS: Sulfamethox/Trimethoprim DS 800/160* TAB PO SCH (08:38)
[2017-05-17] MEDS: FLUoxetine CAP* 20 MG PO SCH (08:38)
[2017-05-17] MEDS: Nicotine Inhaler* 10 MG AMP INH PRN (10:58)
[2017-05-17] MEDS ORDERED: Haloperidol Decanoate* 50 MG/ML AMP IM SCH (11:00)
--- NOTE | 2017-05-17 18:03 | DS ---
DISCHARGE SUMMARY: DATE OF ADMISSION: 05/04/17 DATE OF DISCHARGE: 05/17/17 DISCHARGE DIAGNOSES: Baldwin I: Unspecified mood disorder, posttraumatic stress disorder by history. Baldwin II: Borderline personality disorder, borderline intellectual functioning. Baldwin III: Obesity. Baldwin IV: Severe housing and primary support stressors. Baldwin V: At the time of admission was 30 and at the time of discharge was 60. CONDITION AT THE TIME OF DISCHARGE: Improved. The patient is tolerating her medications quite well. She has just received her latest injection of Haldol Decanoate 175 mg p.o. q.4 weeks. Her next injection of this will be due on , 06/14/17. She is denying suicidal or homicidal ideations. She is welcome to return to her mother's house for the weekend. Thereafter, she has just received a lease on a furnished apartment through the [employer]. The location of the apartment will be in [place], [place]. The patient is excited about her new living arrangement promising to take care of her apartment and promising to utilize her outpatient supports in order to stay out of hospital. She denies any thoughts of harming either herself or anyone else. I will say that given this patient's history of over-utilization of emergency and inpatient services that she is at some risk for self-harm in the future, which is of a chronic in nature; however, the biggest stressor leading to this hospitalization was her lack of housing, which we have addressed with the assistance of the [employer]. Her family is in support of her being discharged. MENTAL STATUS EXAM: At the time of discharge, the patient is an obese, young white female, wearing a black T-shirt and tights, who has fairly reasonable hygiene. There is no evidence of motor disturbance. Her hair is dyed blue and pulled up in a ponytail on top of her head. She is currently calm, cooperative , and easy to establish a rapport with. Mood is euthymic with a full affect. Thought process is linear and goal-directed. Thought content is significant for her desire to be discharged from the hospital. She is denying suicidal or homicidal ideation. She denies auditory or visual hallucinations. Insight and judgment are fair given her willingness to follow up with outpatient treatment in the community. Cognitively, she is awake and alert with what would appear to be low average intellect by virtue of her documented history of developmental delay. DISCHARGE INSTRUCTIONS: To the patient are as follows: A. Medications: 1. She is taking Haldol Decanoate 175 mg IM q.4 weeks, next injection due , 06/14/17. 2. She is also taking olanzapine 5 mg p.o. b.i.d. 3. Fluoxetine 20 mg p.o. b.i.d. 4. She is taking Bactrim double strength 1 tablet p.o. b.i.d., which she will continue to take for the next 7 days for urinary tract infection. B. Diet: Regular. C. Activity: As tolerated. The patient is declining the continuation of further nicotine replacement therapies indicating her preference to continue smoking cigarettes on an outpatient basis. There are no laboratory or diagnostic studies pending at the time of discharge. D. Followup care: The patient will be following up 05/22/17, at the [facility] where she attends the [facility] program. Her prescriber is Dr. Sienna Quinonez. HOSPITAL COURSE: Part A: Reason for admission: The patient is a 26-year-old single, homosexual female with a history of borderline intellectual functioning as well as borderline personality disorder, who was just discharged yesterday from behavioral science unit, who now returns to the hospital having just severely lacerated herself with a razor. The patient is acutely suicidal stating that she will continue to self-harm if discharged. The patient is well known to us from her numerous prior admissions. For more complete history and physical please refer to my H and P which is dated 05/02/17. The patient is currently on Haldol Decanoate with her last injection being delivered on . She does indicate that she continues to tolerate this well along with oral olanzapine and oral fluoxetine, but despite these interventions, she has continued to have emotional distress in the community. She has been forced to stay with her mother as she is awaiting supported housing for which she is at the top of the local waiting list; however, she and her mother often fight and this is well known to be a somewhat . Furthermore, the patient does not have any alternatives in terms of places to stay. She had gone out and looked for a few apartments through the [employer] but these were all too far away from the bus line and so she remains effectively homeless at this time. The patient was incapable of yoav for safety and it was determined that she would require inpatient hospitalization. Part B: Psychiatric treatment rendered: The patient was admitted to the adult behavioral health unit where she was placed on q.15-minute checks for her own safety. We did include her typical behavioral modification plan due to her frequent behavioral outbursts. This is a set of rule to which she must adhere to get certain incentives such as being able to wear her outpatient clothing or go to groups for example. The patient was placed back on her medications including oral olanzapine and fluoxetine. She was not due for her Haldol Decanoate injection; however, we did give this on the date of discharge because she was within the 5-day period. She did struggle with urinary retention and symptoms of dysuria. We had these evaluated by the hospital medical team, who diagnosed her with an acute urinary tract infection with methicillin-resistant Staphylococcus aureus or MRSA. For this, they started her on a trial of Bactrim. She did receive temporary placement of a urinary catheter; however, this was pulled by the hospitalist team just prior to discharge. The patient is being recommended for outpatient urology followup. She is yet to complete her therapeutic course of Bactrim and so we are prescribing this at the time of discharge. At times, the patient was quite behaviorally disinhibited becoming upset when we would not discharge her immediately back to her mother's. There were instances where she required p.r.n. antipsychotic medications to allow her to calm down. However, she has been under good behavioral control over the past several days. At this time, the patient warrants treatment in less restrictive setting. We have been able to find her an apartment, where she can move into starting 05/21/17, and her mother is fine letting Marly stay there in her house for the weekend. [id number]/[facility] #: [id number] [facility]ela
== END 2017-05-17 13:00 | disposition home or self-care (01) | DRG 753 ==
LOC: ED 11:37 → BSU 16:29
PROVIDERS: ADMIT Psychiatry & Neurology Psychiatry; ATTEND Psychiatry & Neurology Psychiatry
DX: F39 Unspecified mood [affective] disorder (principal); R45.851 Suicidal ideations; G40.909 Epilepsy, unspecified, not intractable, without status epilepticus; N39.0 Urinary tract infection, site not specified; F43.10 Post-traumatic stress disorder, unspecified; F60.3 Borderline personality disorder; R41.83 Borderline intellectual functioning; E66.9 Obesity, unspecified; Z68.33 Body mass index [BMI] 33.0-33.9, adult; F17.210 Nicotine dependence, cigarettes, uncomplicated; B95.62 Methicillin resistant Staphylococcus aureus infection as the cause of diseases classified elsewhere; Q86.0 Fetal alcohol syndrome (dysmorphic); Z81.8 Family history of other mental and behavioral disorders; Z81.1 Family history of alcohol abuse and dependence; S50.812A Abrasion of left forearm, initial encounter; S50.811A Abrasion of right forearm, initial encounter; W26.9XXA Contact with unspecified sharp object(s), initial encounter; Y92.009 Unspecified place in unspecified non-institutional (private) residence as the place of occurrence of the external cause; R33.9 Retention of urine, unspecified; Z79.899 Other long term (current) drug therapy; Z88.0 Allergy status to penicillin; Z91.040 Latex allergy status; Z91.011 Allergy to milk products
CPT/HCPCS: 36415; 80053; 80320; 80329; 81003; 81015; 84443; 85025; 87077; 87086; 87186; 99222; 99231; 99238; 99406; A9270-GY; G0480; J1200; J1630; J1631

== ENCOUNTER → 2017-05-24 10:10 | Emergency (ER) | payer MEDICAID, OTHER ==
[~2017-05-24 10:10] MED LIST changes: +Mouth Piece, Nicotine* 1 EACH CARTRIDGE INH PRN; +Nicotine GUM* 2 MG PO ONE; +Nicotine Inhaler* 10 MG AMP INH ONE; -Nicotine Inhaler* 10 MG AMP ONE; +Sulfamethox/Trimethoprim DS 800/160* TAB PO ONE; +diPHENhydraMINE IV* 50 MG/ML 1 ml VIAL (BENADRYL) IM ONE
--- NOTE | 2017-05-24 10:29 | ED ---
Psychiatric Complaint - HPI Summary HPI Summary: BIB police after having a crisis visit at the [facility]. Patient reports she has not slept all night, reports using IV heroin she states she has been injecting for 1 week, states she last used last night. Is tearful stating she does not want to talk about what happened that she is here---Pt easily changes in to blue scrubs and accepts medications to get some sleep - History Of Current Complaint Chief Complaint: [facility]MentalHealth Time Seen by Provider: 05/24/17 10:14 Accompanied By: DAVID Hx Obtained From: Patient, Other: - report from [facility] VIA Mental Health Fmd Teacher Hx Last Menstrual Period: pt states has IUD - no period ?: No Onset/Duration: Worse Since - patient has acute on chronic mental health disorder---escalating this morning Timing: Constant Severity Initially: Moderate Severity Currently: Moderate Character: Depressed, Frustrated Aggravating Factor(s): Drug Use, Other - patient refusing to state at this time Alleviating Factor(s): Nothing Associated Signs And Symptoms: Positive: Sleep Disturbance Related History: Positive For: Prior Psychiatric Issues Has Suicidal: Reports: Demonstrates Gesture - cuts to relieve anxiety told mental health worker she was going to cut "really deep this time" Ingestion History: Type/Name Of Drug - Herion, Approximate Time Of Ingestion - Last night - Allergies/Home Medications Allergies/Adverse Reactions: Allergies Allergy/AdvReac Type Severity Reaction Status Date / Time Penicillin V Allergy Severe Hives Verified 05/06/17 18:52 Latex Allergy Intermediate Rash Verified 05/06/17 18:52 Lactose Intolerance (GI) Allergy Diarrhea Verified 05/06/17 18:52 glue Allergy Rash Uncoded 05/06/17 18:52 steri strips Allergy Rash Uncoded 05/06/17 18:52 PMH/Surg Hx/FS Hx/Imm Hx Previously Healthy: No Endocrine/Hematology History: Reports: Hx Unexplained Bleeding Denies: Hx Anticoagulant Therapy, Hx Blood Disorders, Hx Thyroid Disease, Other Endocrine/Hematological Disorders - borderline diabetic Comment Only: Hx Diabetes - Borderline Cardiovascular History: Denies: Hx Hypertension, Hx Pacemaker/ICD, Other Cardiovascular Problems/ Disorders Respiratory History: Denies: Hx Asthma - patient denied, Hx Chronic Bronchitis, Hx Chronic Obstructive Pulmonary Disease (COPD), Hx Cystic Fibrosis, Hx Lung Cancer, Hx Pleural Effusion, Hx Pneumonia, Hx Pulmonary Edema, Hx Pulmonary Embolism, Hx Seasonal Allergies, Hx Sleep Apnea, Other Respiratory Problems/Disorders GI History: Denies: Hx Ulcer, Other GI Disorders History: Reports: Other Problems/Disorders - Urinary Retention [16 Maltese osborne catheter]; and Herpes. Denies: Hx Renal Disease Musculoskeletal History: Denies: Other Musculoskeletal History Sensory History: Reports: Hx Contacts or Glasses Denies: Hx Cataracts, Hx Eye Injury, Hx Eye Prosthesis, Hx Glaucoma, Hx Legally Blind, Hx Macular Degeneration, Hx Deafness, Hx Hearing Aid, Hx Hearing Problem, Other Sensory Impairments Opthamlomology History: Reports: Hx Contacts or Glasses Denies: Hx Cataracts, Hx Eye Injury, Hx Eye Prosthesis, Hx Glaucoma, Hx Legally Blind, Hx Macular Degeneration, Other Sensory Impairments Neurological History: Reports: Hx Developmental Delay, Hx Headaches, Hx Seizures Denies: Hx Dementia, Hx Migraine, Hx Nerve Disease, Hx Spinal Cord Injury, Hx Transient Ischemic Attacks (TIA), Other Neuro Impairments/Disorders Psychiatric History: Reports: Hx Anxiety, Hx Attention Deficit Hyperactivity Disorder, Hx Eating Disorder, Hx Depression, Hx Panic Disorder, Hx Post Traumatic Stress Disorder, Hx Inpatient Treatment, Hx Community Mental Health Tx , Hx Bipolar Disorder, Hx Suicide Attempt, Hx of Violent Episodes Against Others - SEE VIOLENCE HX, Hx Substance Abuse - OD on ativan 03/14/2017, Other Psychiatric Issues/Disorders Comment Only: Hx Schizophrenia - Schizoaffective Disorder - Cancer History Hx Chemotherapy: No Hx Radiation Therapy: No Hx Palliative Cancer Treatment: No - Surgical History Surgery Procedure, Year, and Place: None - Immunization History Date of Tetanus Vaccine: UTD Date of Influenza Vaccine: Unk Infectious Disease History: Yes Infectious Disease History: Reports: Hx of Known/Suspected MRSA, 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 - Social History Occupation: Disabled Lives: With Family - currently with mother has an apartment at [place] tomorrow or the day after Alcohol Use: Rare Alcohol Amount: "drank beer awhile ago" Hx Substance Use: Yes Substance Use Type: Reports: Heroin Hx Tobacco Use: Yes Smoking Status (MU): Current Every Day Smoker Type: Cigarettes Amount Used/How Often: 1 pack per day Length of Time of Smoking/Using Tobacco: 3 years Have You Smoked in the Last Year: Yes - Patient has smoked within the last 30 days Review of Systems Constitutional: Negative Eyes: Negative ENT: Negative Cardiovascular: Negative Positive: Shortness Of Breath Gastrointestinal: Negative Genitourinary: Other - 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 Positive: burning, pain Musculoskeletal: Negative Skin: Negative Neurological: Negative Positive: Anxious, Depressed All Other Systems Reviewed And Are Negative: Yes Physical Exam Appearance: Positive: Well-Appearing - at her baseline-, Pain Distress - emotional, Obese Skin: Positive: Warm, Skin Color Reflects Adequate Perfusion Head/Face: Positive: Normal Head/Face Inspection Eyes: Positive: Normal, EOMI, Conjunctiva Clear ENT: Positive: Normal ENT inspection, Hearing grossly normal Neck: Positive: Supple, Nontender Respiratory/Lung Sounds: Positive: Breath Sounds Present Cardiovascular: Positive: RRR, Pulses are Symmetrical in both Upper and Lower Extremities Musculoskeletal: Positive: Normal, Strength/ROM Intact Neurological: Positive: Normal, Sensory/Motor Intact, Alert, Oriented to Person Place, Time, CN Intact II-III Psychiatric: Positive: Anxious, Depressed AVPU Assessment: Pain (Reponds To) Diagnostics - Laboratory Result Diagrams: 05/24/17 10:45 05/24/17 10:45 Lab Statement: Any lab studies that have been ordered have been reviewed, and results considered in the medical decision making process. Re-Evaluation - Re-Evaluation First Eval Change: Improved - Sleeping with out medication Second Eval Change: Improved - gave urine sample is hoping to get home soon eating meal pleasent cooperative in behavioral control, spoke with Alek Marte Fmd Teacher who will seeing Marly celis d/c current patient Third Eval Change: Improved - Seen health services manager in [facility] and control will be d/c Course/Dx - Course Assessment/Plan: d/c follow with [facility] tomorrow, follow with pcp and addiction recovery - Differential Dx/Clinical Impression Provider Diagnosis: UTI (urinary tract infection), Borderline personality disorder in adult Discharge - Discharge Plan Condition: Stable Disposition: HOME Prescriptions: Sulfamethox/Trimethoprim DS* [Bactrim DS 800/160 TAB*] 1 tab PO BID #13 tab Patient Education Materials: Urinary Tract Infection in Women (ED) Referrals: [facility] [place] PHYSICIAN REFERRAL [Outside] - 1 Week [facility] [Outside] - 1 Week ADDICTION/CODEPENDENCY/RECOVER [Provider Group] - 1 Week [facility] [Outside] - As Soon As Possible
[2017-05-24 10:55] LABS: Hematocrit 37 % (35-47); Hemoglobin 12.7 g/dl (12.0-16.0); Mean Corpuscular HGB Conc 34 g/dl (31-36); Mean Corpuscular Hemoglobin 30 pg (27-31); Mean Corpuscular Volume 86 fL (80-97); Mean Platelet Volume 8 um3 (7.4-10.4); Red Blood Count 4.31 10^6/ul (4.0-5.4); Red Cell Distribution Width 15 % (10.5-15); White Blood Count 9.7 10^3/ul (3.5-10.8)
[2017-05-24 10:56] LABS: Add Diff/Slide Review? Slide Review Added; Comments Flag Yes
[2017-05-24 11:14] LABS: ALT 26 U/L (7-52); AST 16 U/L (13-39); Albumin 3.9 g/dL (3.2-5.2); Alkaline Phosphatase 75 U/L (34-104); Anion Gap 7 mmol/L (2-11); Blood Urea Nitrogen 9 mg/dL (6-24); CO2 Carbon Dioxide 24 mmol/L (22-32); Calcium 8.8 mg/dL (8.6-10.3); Chloride 107 mmol/L (101-111); EGFR African American 106.8 (>60); Globulin 3.2 g/dL (2-4); Glucose 86 mg/dL (70-100); Potassium 3.7 mmol/L (3.5-5.0); Sodium 138 mmol/L (133-145); Total Protein 7.1 g/dL (6.4-8.9)
[2017-05-24 11:19] LABS: Acetaminophen < 15 mcg/mL; Alcohol 40 mg/dL (<10); Salicylate < 2.50 mg/dL (<30)
[2017-05-24 11:24] LABS: Eosinophils % 2 % (0-6); Immature Granulocytes 4 % (0-9); Myelocytes % 4 % (0-1); Neutrophil % 62 % (38-83); RBC Morphology Normal (Normal)
[2017-05-24 14:25] LABS: Urine Bacteria 1+ (Absent); Urine Bilirubin Negative (Negative); Urine Glucose Negative (Negative); Urine Nitrite Negative (Negative)
[2017-05-24 14:43] LABS: Benzodiazepine Urine Screen None Detected (None Detect)
[2017-05-24 16:34] VITALS: BP 109/59
== END | disposition home or self-care (01) ==
LOC: ED 10:10
DX: N39.0 Urinary tract infection, site not specified (principal); F60.3 Borderline personality disorder; F41.8 Other specified anxiety disorders; F17.210 Nicotine dependence, cigarettes, uncomplicated; R06.02 Shortness of breath
CPT/HCPCS: 36415; 80053; 80307; 80320; 80329; 81003; 81015; 84702; 85025; 87086; 96372; 99284; A9270-GY; G0480; J1200

== ENCOUNTER 2017-05-26 17:51 | Emergency (ER) | payer OTHER ==
[2017-05-26 18:02] VITALS: BP 116/82
--- NOTE | 2017-06-03 17:20 | UC ---
Stacey Lofton Thomas, scribed for Maria ESuzanna Isabelle DO on 05/26/17 at 1814 . Psychiatric Complaint HPI - HPI Summary HPI Summary: The pt is a 26 y/o F presenting to [facility] [place] c/o SI since yesterday. She also c/o depersonalization and derealization. She says everything feels like a dream. She is sad and anxious. There are no known recent stressors. She has a history of cutting, SI, and previous suicide attempts. Today, she used heroin and Vicodin. She began to use heroin last week. She is a current smoker and uses marijuana. She denies alcohol use. Pt denies any other complaints at this time. She was brought to [facility] [place] by a friend. - History Of Current Complaint Chief Complaint: [facility] Stated Complaint: FEELING SUICIDAL C Hx Obtained From: Patient Hx Last Menstrual Period: IUD Onset/Duration: Lasting Days - onset yesterday, Still Present Timing: Constant Aggravating Factor(s): Other - Unknown Alleviating Factor(s): Other - Unknown Related History: Positive For: Prior Psychiatric Issues Has Suicidal: Thoughts, Has Prior Attempt(s) Recent Stressor(s): No known Ingestion History: Type/Name Of Drug - She began to use heroin this week. - Allergies/Home Medications Allergies/Adverse Reactions: Allergies Allergy/AdvReac Type Severity Reaction Status Date / Time Penicillin V Allergy Severe Hives Verified 05/26/17 18:02 Latex Allergy Intermediate Rash Verified 05/26/17 18:02 Lactose Intolerance (GI) Allergy Diarrhea Verified 05/26/17 18:02 glue Allergy Rash Uncoded 05/26/17 18:02 steri strips Allergy Rash Uncoded 05/26/17 18:02 PMH/Surg Hx/FS Hx/Imm Hx Previously Healthy: No - extensive PMHx including borderline, depression, schizoaffective Endocrine History: Diabetes Other History Of: Negative For: Anticoagulant Therapy - Surgical History Surgical History: None Surgery Procedure, Year, and Place: None - Family History Known Family History: Positive: Unknown - Pt is adopted, known some Hx of mood d /o, Other - FMHx of depression, mood disorders, and anxiety disorders Family History: Patient is adopted - FHx mostly unknown except significant for alcohol abuse since the patient was born with Alcohol Syndrome. - Social History Alcohol Use: None Alcohol Amount: "drank beer awhile ago" Substance Use Type: Heroin Substance Use Comment - Amount & Last Used: last used 0900 Smoking Status (MU): Current Every Day Smoker Type: Cigarettes Amount Used/How Often: 1 pack per day Length of Time of Smoking/Using Tobacco: 3 years Have You Smoked in the Last Year: Yes - Patient has smoked within the last 30 days Household Exposure Type: Cigarettes - Immunization History Most Recent Influenza Vaccination: 05/21/16 Most Recent Tetanus Shot: Less than 10 years Most Recent Pneumonia Vaccination: 10/31/15 Review of Systems Constitutional: Other - NEGATIVE: fever Psychological: Other - SI, depersonalization, derealization, anxiety, depression Is Patient Immunocompromised?: No All Other Systems Reviewed And Are Negative: Yes Physical Exam Triage Information Reviewed: Yes Appearance: Well-Appearing, No Pain Distress, Well-Nourished, Obese Vital Signs: Initial Vital Signs Temp 98.6 F 05/26/17 17:55 Pulse 84 05/26/17 17:55 Resp 18 05/26/17 17:55 BP 116/82 05/26/17 17:55 Pulse Ox 96 05/26/17 17:55 Vital Signs Reviewed: Yes Eyes: Positive: Conjunctiva Clear. Negative: Discharge ENT: Positive: Hearing grossly normal. Negative: Muffled/hoarse voice Neck: Positive: Supple, Nontender Respiratory: Positive: Lungs clear, Normal breath sounds, No respiratory distress, No accessory muscle use Cardiovascular: Positive: RRR, No Murmur Musculoskeletal Exam: Normal Neurological: Positive: Alert, Muscle Tone Normal Psychological: Positive: Other: - spacey, depressed Skin: Positive: Other - evidence of iv drug use and self mutilation on bl arm Psych Complaint Course/Dx - Course Course Of Treatment: Medications reviewed this visit. The patient has been encouraged to stop smoking. The patient is a 26 y/o F with an extensive psychiatric history c/o SI that began yesterday. She began to use heroin in the last week. She will be transferred to [facility] via ambulance for higher level of care. - Differential Dx/Diagnosis Provider Diagnoses: suicidal ideation Discharge - Discharge Plan Condition: Fair Disposition: OTHER Discharge Disposition Comment: Transferred to [facility] by ambulance. Referrals: No Primary Care Phys,NOPCP [Primary Care Provider] - The documentation as recorded by the Stacey haskins Thomas accurately reflects the service I personally performed and the decisions made by me, Suzanna Sanderson DO.
== END 2017-05-26 18:37 ==
LOC: UCEAST 17:51
DX: R45.851 Suicidal ideations (principal); E11.9 Type 2 diabetes mellitus without complications; F32.9 Major depressive disorder, single episode, unspecified; F20.9 Schizophrenia, unspecified; Z91.040 Latex allergy status; Z88.0 Allergy status to penicillin; Z91.048 Other nonmedicinal substance allergy status; F11.90 Opioid use, unspecified, uncomplicated; F17.210 Nicotine dependence, cigarettes, uncomplicated
CPT/HCPCS: 99213; G0463

== ENCOUNTER 2017-07-01 16:36 | Emergency (ER) | payer OTHER ==
[2017-07-01 16:53] VITALS: BP 125/72
[2017-07-01] MEDS ORDERED: OLANzapine TAB* 10 MG PO ONE (17:04)
[2017-07-01] MEDS ORDERED: OLANzapine TAB*ODT* 5 MG ONE (17:05)
[2017-07-01] MEDS ORDERED: Lidocaine 1%* 5 ML VIAL ONE (17:11)
--- NOTE | 2017-07-01 17:28 | PN ---
Progress Note - Progress Note Date of Service: 07/01/17 Note: 2 laceration on right forearm, repair done by Jess BYRANT 3cm by 1/4cm cleaned with 100cc saline placed 3 sabra covered with telfa and coband 4cm by 1/2cm cleaned with 100cc saline placed 6 sutures covered with telfa and coband
[2017-07-01 17:50] LABS: Urine Bacteria Absent (Absent); Urine Bilirubin Negative (Negative); Urine Glucose Negative (Negative); Urine Nitrite Negative (Negative)
[2017-07-01 18:12] LABS: Hematocrit 39 % (35-47); Hemoglobin 13.1 g/dl (12.0-16.0); Mean Corpuscular HGB Conc 34 g/dl (31-36); Mean Corpuscular Hemoglobin 29 pg (27-31); Mean Corpuscular Volume 85 fL (80-97); Mean Platelet Volume 9 um3 (7.4-10.4); Red Blood Count 4.54 10^6/ul (4.0-5.4); Red Cell Distribution Width 16 % (10.5-15); White Blood Count 13.9 10^3/ul (3.5-10.8)
[2017-07-01 18:21] LABS: ALT 20 U/L (7-52); AST 16 U/L (13-39); Albumin 4.2 g/dL (3.2-5.2); Alkaline Phosphatase 62 U/L (34-104); Anion Gap 8 mmol/L (2-11); BUN/Creatinine Ratio 14.6 (8-20); Blood Urea Nitrogen 13 mg/dL (6-24); CO2 Carbon Dioxide 20 mmol/L (22-32); Calcium 9.3 mg/dL (8.6-10.3); Chloride 108 mmol/L (101-111); EGFR African American 97.1 (>60); EGFR Non-African American 75.5 (>60); Globulin 3.4 g/dL (2-4); Glucose 109 mg/dL (70-100); Potassium 3.5 mmol/L (3.5-5.0); Sodium 136 mmol/L (133-145); Total Protein 7.6 g/dL (6.4-8.9)
[2017-07-01 18:24] LABS: Benzodiazepine Urine Screen Presumptive Positive (None Detect)
[2017-07-01 18:38] LABS: Acetaminophen < 15 mcg/mL; Alcohol < 10 mg/dL (<10); Salicylate < 2.50 mg/dL (<30)
[2017-07-01 18:53] LABS: TSH (Thyroid Stimulating Horm) 1.59 mcIU/mL (0.34-5.60)
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
== END 2017-07-01 18:33 | disposition home or self-care (01) ==
LOC: ED 16:36
DX: S51.811A Laceration without foreign body of right forearm, initial encounter (principal); X78.9XXA Intentional self-harm by unspecified sharp object, initial encounter; Y92.9 Unspecified place or not applicable; F17.210 Nicotine dependence, cigarettes, uncomplicated; F90.9 Attention-deficit hyperactivity disorder, unspecified type; F41.9 Anxiety disorder, unspecified; Z91.14 Patient's other noncompliance with medication regimen; Z88.0 Allergy status to penicillin
CPT/HCPCS: 36415; 80053; 80307; 80320; 80329; 81003; 81015; 84443; 85025; 87086; 99282; A9270-GY; G0480

== ENCOUNTER 2017-07-07 16:08 | Inpatient (IN) | payer MEDICAID, OTHER ==
[2017-07-07 17:19] LABS: Hematocrit 39 % (35-47); Hemoglobin 13.4 g/dl (12.0-16.0); Mean Corpuscular HGB Conc 34 g/dl (31-36); Mean Corpuscular Hemoglobin 30 pg (27-31); Mean Corpuscular Volume 86 fL (80-97); Mean Platelet Volume 9 um3 (7.4-10.4); Red Blood Count 4.53 10^6/ul (4.0-5.4); Red Cell Distribution Width 15 % (10.5-15); White Blood Count 11.9 10^3/ul (3.5-10.8)
[2017-07-07 17:30] LABS: ALT 16 U/L (7-52); AST 14 U/L (13-39); Albumin 4.5 g/dL (3.2-5.2); Alkaline Phosphatase 72 U/L (34-104); Anion Gap 7 mmol/L (2-11); Blood Urea Nitrogen 12 mg/dL (6-24); CO2 Carbon Dioxide 25 mmol/L (22-32); Calcium 9.3 mg/dL (8.6-10.3); Chloride 106 mmol/L (101-111); EGFR Non-African American 78.6 (>60); Globulin 3.2 g/dL (2-4); Glucose 101 mg/dL (70-100); Potassium 3.7 mmol/L (3.5-5.0); Sodium 138 mmol/L (133-145); Total Protein 7.7 g/dL (6.4-8.9)
[2017-07-07 17:59] LABS: Acetaminophen < 15 mcg/mL; Alcohol < 10 mg/dL (<10); Salicylate < 2.50 mg/dL (<30)
[2017-07-07 18:51] LABS: Urine Bacteria Absent (Absent); Urine Bilirubin Negative (Negative); Urine Glucose Negative (Negative); Urine Nitrite Negative (Negative)
[2017-07-07 19:16] LABS: Benzodiazepine Urine Screen Presumptive Positive (None Detect)
[2017-07-07] MEDS: Nicotine GUM* 2 MG PO PRN ×2 (20:15→22:43)
[2017-07-07] MEDS ORDERED: Diazepam TAB(*) 5 MG PO ONE (23:23)
[2017-07-08] MEDS: Nicotine GUM* 2 MG PO PRN ×8 (00:43→20:44)
--- NOTE | 2017-07-08 06:50 | ED ---
Stacey Lofton Thomas, scribed for Rodrigo Costa on 07/08/17 at 0630 . Progress - Progress Note Progress Note: The patient is a sign out from Dr. Liu at shift change pending mental health evaluation, awaiting disposition. The patient will be signed out to Dr. Liu at shift change in the morning pending mental health evaluation, awaiting disposition. Course/Dx - Diagnoses Provider Diagnoses: Depressed The documentation as recorded by the Stacey haskins Thomas accurately reflects the service I personally performed and the decisions made by Julissa youngblood Emmanuel.
[2017-07-08] MEDS ORDERED: Al Hydrox/Mg Hydrox/Simet LIQ* 30 ML UDC PO PRN (10:53)
[2017-07-08] MEDS ORDERED: chlorproMAZINE TAB* 100 MG PO PRN (10:56)
[2017-07-08] MEDS ORDERED: Haloperidol Decanoate* 50 MG/ML AMP IM SCH (13:00)
[2017-07-08] MEDS: FLUoxetine CAP* 20 MG PO SCH (13:42)
[2017-07-08] MEDS: Nicotine Inhaler* 10 MG AMP INH PRN ×3 (13:42→18:55)
[2017-07-08] MEDS ORDERED: Mouth Piece, Nicotine* 1 EACH CARTRIDGE ONE (13:46)
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
[2017-07-08] MEDS ORDERED: Haloperidol Decanoate* 50 MG/ML AMP ONE ×2 (13:57→14:27)
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
[2017-07-08] MEDS: Acetaminophen TAB* 325 MG PO PRN (19:24)
[2017-07-08] MEDS: Ciprofloxacin TAB* 250 MG PO SCH (20:44)
[2017-07-08] MEDS ORDERED: Clotrimazole 1% VAGINAL CREAM* 45 GM VAGINAL SCH (21:00)
[2017-07-09] MEDS ORDERED: Mouth Piece, Nicotine* 1 EACH CARTRIDGE ONE (02:08)
[2017-07-09] MEDS: Acetaminophen TAB* 325 MG PO PRN ×2 (02:10→07:28)
[2017-07-09] MEDS: Nicotine GUM* 2 MG PO PRN ×3 (02:10→09:30)
[2017-07-09] MEDS: Nicotine Inhaler* 10 MG AMP INH PRN ×2 (02:10→08:09)
[2017-07-09] MEDS: FLUoxetine CAP* 20 MG PO SCH (07:29)
[2017-07-09] MEDS: Ciprofloxacin TAB* 250 MG PO SCH (07:29)
[2017-07-09 08:39] VITALS: BP 143/90
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
== END 2017-07-09 11:15 | disposition home or self-care (01) | DRG 753 ==
LOC: ED 16:08 → BSU 07-08 11:57
PROVIDERS: ADMIT Psychiatry & Neurology Psychiatry; ATTEND Psychiatry & Neurology Psychiatry
DX: F39 Unspecified mood [affective] disorder (principal); R45.851 Suicidal ideations; G40.909 Epilepsy, unspecified, not intractable, without status epilepticus; N39.0 Urinary tract infection, site not specified; F43.10 Post-traumatic stress disorder, unspecified; F60.3 Borderline personality disorder; E66.9 Obesity, unspecified; Z68.31 Body mass index [BMI] 31.0-31.9, adult; F17.210 Nicotine dependence, cigarettes, uncomplicated; R41.83 Borderline intellectual functioning; F19.10 Other psychoactive substance abuse, uncomplicated
CPT/HCPCS: 36415; 80053; 80307; 80320; 80329; 81003; 81015; 84443; 85025; 87086; 99222; 99238; A9270-GY; G0480; J1631

== ENCOUNTER 2017-07-11 15:03 | Emergency (ER) | payer MEDICAID, OTHER ==
[2017-07-11] MEDS ORDERED: Mouth Piece, Nicotine* 1 EACH CARTRIDGE INH PRN (15:12)
[2017-07-11] MEDS ORDERED: Nicotine GUM* 2 MG ONE (15:46)
[2017-07-11] MEDS: Ibuprofen TAB* 600 MG PO ONE (15:48)
[2017-07-11] MEDS: Nicotine GUM* 2 MG PO PRN ×2 (15:48→17:48)
[2017-07-11 15:51] LABS: Hematocrit 37 % (35-47); Hemoglobin 12.4 g/dl (12.0-16.0); Mean Corpuscular HGB Conc 34 g/dl (31-36); Mean Corpuscular Hemoglobin 29 pg (27-31); Mean Corpuscular Volume 85 fL (80-97); Mean Platelet Volume 9 um3 (7.4-10.4); Red Blood Count 4.34 10^6/ul (4.0-5.4); Red Cell Distribution Width 16 % (10.5-15); White Blood Count 16.9 10^3/ul (3.5-10.8)
[2017-07-11 15:53] LABS: Comments Flag Yes
[2017-07-11 15:54] LABS: Add Diff/Slide Review? Slide Review Added
[2017-07-11 16:02] LABS: Urine Bacteria 1+ (Absent); Urine Bilirubin Negative (Negative); Urine Glucose Negative (Negative); Urine Nitrite Negative (Negative)
[2017-07-11 16:05] LABS: ALT 16 U/L (7-52); AST 14 U/L (13-39); Albumin 4.1 g/dL (3.2-5.2); Alkaline Phosphatase 61 U/L (34-104); Anion Gap 7 mmol/L (2-11); BUN/Creatinine Ratio 9.1 (8-20); Blood Urea Nitrogen 8 mg/dL (6-24); CO2 Carbon Dioxide 28 mmol/L (22-32); Calcium 9.2 mg/dL (8.6-10.3); Chloride 99 mmol/L (101-111); EGFR African American 98.4 (>60); EGFR Non-African American 76.5 (>60); Globulin 3.6 g/dL (2-4); Glucose 91 mg/dL (70-100); Sodium 134 mmol/L (133-145); Total Protein 7.7 g/dL (6.4-8.9)
[2017-07-11 16:13] LABS: Benzodiazepine Urine Screen Presumptive Positive (None Detect)
[2017-07-11 16:30] LABS: Acetaminophen < 15 mcg/mL; Alcohol < 10 mg/dL (<10); Salicylate < 2.50 mg/dL (<30)
[2017-07-11 16:46] LABS: TSH (Thyroid Stimulating Horm) 0.74 mcIU/mL (0.34-5.60)
--- NOTE | 2017-07-11 18:37 | ED ---
Psychiatric Complaint - HPI Summary HPI Summary: Patient is a frequent visitor to the ED. Called ambulance with thoughts of suicide stating she would jump off a bridge, but she denies this on arrival. She states she would like to go home. Endorses bilateral arm pain and requesting medications. Requesting nicotine. Denies current SI/HI or self harm today. Bilateral arm injuries acute on chronic - cutting. She denies any drug use or etoh but endorses marijuana. Patient is a smoker. - History Of Current Complaint Chief Complaint: [facility]entalHealth Time Seen by Provider: 07/11/17 15:11 Hx Obtained From: Patient Hx Last Menstrual Period: IUD ?: No Onset/Duration: Sudden Onset Timing: Constant Severity Initially: Mild Severity Currently: Mild Character: Depressed Aggravating Factor(s): Nothing Alleviating Factor(s): Nothing Associated Signs And Symptoms: Positive: Negative Has Suicidal: Reports: Thoughts, Has Prior Attempt(s) - Risk Factor(s) Completed Suicide Risk Factors: Negative - Allergies/Home Medications Allergies/Adverse Reactions: Allergies Allergy/AdvReac Type Severity Reaction Status Date / Time Penicillin V Allergy Severe Hives Verified 07/07/17 16:17 Latex Allergy Intermediate Rash Verified 07/07/17 16:17 Lactose Intolerance (GI) Allergy Diarrhea Verified 07/07/17 16:17 glue Allergy Rash Uncoded 07/07/17 16:17 steri strips Allergy Rash Uncoded 07/07/17 16:17 Home Medications: Home Medications Zolpidem TAB* [Ambien TAB*] 10 mg PO BEDTIME PRN 07/12/17 [History Confirmed ] PMH/Surg Hx/FS Hx/Imm Hx Previously Healthy: Yes Endocrine/Hematology History: Reports: Hx Unexplained Bleeding Denies: Hx Anticoagulant Therapy, Hx Blood Disorders, Hx Thyroid Disease, Other Endocrine/Hematological Disorders - borderline diabetic Comment Only: Hx Diabetes - Borderline Cardiovascular History: Denies: Hx Hypertension, Hx Pacemaker/ICD, Other Cardiovascular Problems/ Disorders Respiratory History: Denies: Hx Asthma - patient denied, Hx Chronic Bronchitis, Hx Chronic Obstructive Pulmonary Disease (COPD), Hx Cystic Fibrosis, Hx Lung Cancer, Hx Pleural Effusion, Hx Pneumonia, Hx Pulmonary Edema, Hx Pulmonary Embolism, Hx Seasonal Allergies, Hx Sleep Apnea, Other Respiratory Problems/Disorders GI History: Denies: Hx Ulcer, Other GI Disorders History: Reports: Other Problems/Disorders - Urinary Retention [16 Bengali osborne catheter]; and Herpes. Denies: Hx Renal Disease Musculoskeletal History: Denies: Other Musculoskeletal History Sensory History: Denies: Hx Cataracts, Hx Contacts or Glasses, Hx Eye Injury, Hx Eye Prosthesis, Hx Glaucoma, Hx Legally Blind, Hx Macular Degeneration, Hx Deafness , Hx Hearing Aid, Hx Hearing Problem, Other Sensory Impairments Opthamlomology History: Denies: Hx Cataracts, Hx Contacts or Glasses, Hx Eye Injury, Hx Eye Prosthesis, Hx Glaucoma, Hx Legally Blind, Hx Macular Degeneration, Other Sensory Impairments Neurological History: Reports: Hx Developmental Delay, Hx Headaches, Hx Seizures Denies: Hx Dementia, Hx Migraine, Hx Nerve Disease, Hx Spinal Cord Injury, Hx Transient Ischemic Attacks (TIA), Other Neuro Impairments/Disorders Psychiatric History: Reports: Hx Anxiety, Hx Attention Deficit Hyperactivity Disorder, Hx Eating Disorder, Hx Depression, Hx Panic Disorder, Hx Post Traumatic Stress Disorder, Hx Inpatient Treatment, Hx Community Mental Health Tx , Hx Bipolar Disorder, Hx Suicide Attempt, Hx of Violent Episodes Against Others - SEE VIOLENCE HX, Hx Substance Abuse - OD on ativan 03/14/2017, Other Psychiatric Issues/Disorders Comment Only: Hx Schizophrenia - Schizoaffective Disorder - Cancer History Hx Chemotherapy: No Hx Radiation Therapy: No Hx Palliative Cancer Treatment: No - Surgical History Surgery Procedure, Year, and Place: None - Immunization History Date of Tetanus Vaccine: UTD Date of Influenza Vaccine: Unk Hx Pertussis Vaccination: No Immunizations Up to Date: Unable to Obtain/Confirm Infectious Disease History: No Infectious Disease History: Reports: Hx of Known/Suspected MRSA, 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 - Social History Occupation: Unemployed Lives: Alone Alcohol Use: None Alcohol Amount: "drank beer awhile ago" Hx Substance Use: Yes Substance Use Type: Reports: None Substance Use Comment - Amount & Last Used: hx of such Hx Tobacco Use: Yes Smoking Status (MU): Heavy Every Day Tobacco Smoker Type: Cigarettes Amount Used/How Often: 1 pack per day Length of Time of Smoking/Using Tobacco: 3 years Have You Smoked in the Last Year: Yes - Patient has smoked within the last 30 days Review of Systems Constitutional: Negative Negative: Fever, Chills, Fatigue Eyes: Negative Cardiovascular: Negative Respiratory: Negative Genitourinary: Negative Positive: no symptoms reported, see HPI Musculoskeletal: Negative Positive: Other - bilateral arms with lacerations Neurological: Negative All Other Systems Reviewed And Are Negative: Yes Physical Exam Triage Information Reviewed: Yes Vital Signs On Initial Exam: Initial Vitals Temp Pulse Resp BP Pulse Ox 99.3 F 99 17 135/99 98 07/11/17 15:11 07/11/17 15:11 07/11/17 15:11 07/11/17 15:11 07/11/17 15:11 Vital Signs Reviewed: Yes Appearance: Positive: Well-Appearing, Well-Nourished Skin: Positive: Warm, Skin Color Reflects Adequate Perfusion Head/Face: Positive: Normal Head/Face Inspection Eyes: Positive: EOMI, [place]SA[place], Conjunctiva Clear Neck: Positive: Supple, Nontender, No Lymphadenopathy Respiratory/Lung Sounds: Positive: Clear to Auscultation, Breath Sounds Present Cardiovascular: Positive: Normal, RRR, Pulses are Symmetrical in both Upper and Lower Extremities Musculoskeletal: Positive: Strength/ROM Intact Neurological: Positive: Speech Normal Psychiatric: Positive: Normal, Affect/Mood Appropriate - Mobile Coma Scale Best Eye Response: 4 - Spontaneous Best Motor Response: 6 - Obeys Commands Best Verbal Response: 5 - Oriented Coma Scale Total: 15 Diagnostics - Vital Signs Vital Signs Temp Pulse Resp BP Pulse Ox 07/11/17 15:11 99.3 F 99 17 135/99 98 - Laboratory Lab Results: Lab Results 07/11/17 07/11/17 07/11/17 Range/Units 15:20 15:20 15:40 WBC (3.5-10.8) 10^3/ul RBC (4.0-5.4) 10^6/ul Hgb (12.0-16.0) g/dl Hct (35-47) % MCV (80-97) fL MCH (27-31) pg MCHC (31-36) g/dl RDW (10.5-15) % Plt Count (150-450) 10^3/ul MPV (7.4-10.4) um3 Neut % (Auto) (38-83) % Lymph % (Auto) (25-47) % Hetting[place] % (Auto) (1-9) % Eos % (Auto) (0-6) % Baso % (Auto) (0-2) % Absolute Neuts (auto) (1.5-7.7) 10^3/ul Absolute Lymphs (auto) (1.0-4.8) 10^3/ul Absolute Monos (auto) (0-0.8) 10^3/ul Absolute Eos (auto) (0-0.6) 10^3/ul Absolute Basos (auto) (0-0.2) 10^3/ul Absolute Nucleated RBC 10^3/ul Nucleated RBC % Sodium 134 (133-145) mmol/L Potassium 4.0 (3.5-5.0) mmol/L Chloride 99 L (101-111) mmol/L Carbon Dioxide 28 (22-32) mmol/L Anion Gap 7 (2-11) mmol/L BUN 8 (6-24) mg/dL Creatinine 0.88 (0.51-0.95) mg/dL Est GFR ( Amer) 98.4 (>60) Est GFR (Non-Af Amer) 76.5 (>60) BUN/Creatinine Ratio 9.1 (8-20) Glucose 91 (70-100) mg/dL Calcium 9.2 (8.6-10.3) mg/dL Total Bilirubin 0.50 (0.2-1.0) mg/dL AST 14 (13-39) U/L ALT 16 (7-52) U/L Alkaline Phosphatase 61 (34-104) U/L Total Protein 7.7 (6.4-8.9) g/dL Albumin 4.1 (3.2-5.2) g/dL Globulin 3.6 (2-4) g/dL Albumin/Globulin Ratio 1.1 (1-3) TSH 0.74 (0.34-5.60) mcIU/mL Urine Color Yellow Urine Appearance Cloudy Urine pH 5.0 (5-9) Ur Specific [place] 1.023 (1.010-1.030) Urine Protein 1+(30 mg/dl) H (Negative) Urine Ketones Negative (Negative) Urine Blood 1+ H (Negative) Urine Nitrate Negative (Negative) Urine Bilirubin Negative (Negative) Urine Urobilinogen Positive H (Negative) Ur Leukocyte Esterase 3+ H (Negative) Urine WBC (Auto) 3+(>20/hpf) H (Absent) Urine RBC (Auto) 3+(>10/hpf) H (Absent) Ur Squamous Epith Cells Present H (Absent) Urine Bacteria 1+ H (Absent) Urine Glucose Negative (Negative) Salicylates < 2.50 (<30) mg/dL Urine Opiates Screen None detected (None Detect) Acetaminophen < 15 mcg/mL Ur Barbiturates Screen None detected (None Detect) Ur Phencyclidine Scrn None detected (None Detect) Ur Amphetamines Screen None detected (None Detect) U Benzodiazepines Scrn Presumptive positive H (None Detect) Urine Cocaine Screen None detected (None Detect) U Cannabinoids Screen None detected (None Detect) Serum Alcohol < 10 (<10) mg/dL 07/11/17 Range/Units 15:40 WBC 16.9 H (3.5-10.8) 10^3/ul RBC 4.34 (4.0-5.4) 10^6/ul Hgb 12.4 (12.0-16.0) g/dl Hct 37 (35-47) % MCV 85 (80-97) fL MCH 29 (27-31) pg MCHC 34 (31-36) g/dl RDW 16 H (10.5-15) % Plt Count 304 (150-450) 10^3/ul MPV 9 (7.4-10.4) um3 Neut % (Auto) 65.9 (38-83) % Lymph % (Auto) 18.9 L (25-47) % [place] % (Auto) 11.5 H (1-9) % Eos % (Auto) 2.3 (0-6) % Baso % (Auto) 1.4 (0-2) % Absolute Neuts (auto) 11.1 H (1.5-7.7) 10^3/ul Absolute Lymphs (auto) 3.2 (1.0-4.8) 10^3/ul Absolute Monos (auto) 1.9 H (0-0.8) 10^3/ul Absolute Eos (auto) 0.4 (0-0.6) 10^3/ul Absolute Basos (auto) 0.2 (0-0.2) 10^3/ul Absolute Nucleated RBC 0 10^3/ul Nucleated RBC % 0 Sodium (133-145) mmol/L Potassium (3.5-5.0) mmol/L Chloride (101-111) mmol/L Carbon Dioxide (22-32) mmol/L Anion Gap (2-11) mmol/L BUN (6-24) mg/dL Creatinine (0.51-0.95) mg/dL Est GFR ( Amer) (>60) Est GFR (Non-Af Amer) (>60) BUN/Creatinine Ratio (8-20) Glucose (70-100) mg/dL Calcium (8.6-10.3) mg/dL Total Bilirubin (0.2-1.0) mg/dL AST (13-39) U/L ALT (7-52) U/L Alkaline Phosphatase (34-104) U/L Total Protein (6.4-8.9) g/dL Albumin (3.2-5.2) g/dL Globulin (2-4) g/dL Albumin/Globulin Ratio (1-3) TSH (0.34-5.60) mcIU/mL Urine Color Urine Appearance Urine pH (5-9) Ur Specific [place] (1.010-1.030) Urine Protein (Negative) Urine Ketones (Negative) Urine Blood (Negative) Urine Nitrate (Negative) Urine Bilirubin (Negative) Urine Urobilinogen (Negative) Ur Leukocyte Esterase (Negative) Urine WBC (Auto) (Absent) Urine RBC (Auto) (Absent) Ur Squamous Epith Cells (Absent) Urine Bacteria (Absent) Urine Glucose (Negative) Salicylates (<30) mg/dL Urine Opiates Screen (None Detect) Acetaminophen mcg/mL Ur Barbiturates Screen (None Detect) Ur Phencyclidine Scrn (None Detect) Ur Amphetamines Screen (None Detect) U Benzodiazepines Scrn (None Detect) Urine Cocaine Screen (None Detect) U Cannabinoids Screen (None Detect) Serum Alcohol (<10) mg/dL Result Diagrams: 07/11/17 15:40 07/11/17 15:40 Lab Statement: Any lab studies that have been ordered have been reviewed, and results considered in the medical decision making process. Course/Dx - Course Course Of Treatment: Patient is evaluated for MHU. - Differential Dx/Clinical Impression Provider Diagnosis: Bipolar disorder Discharge - Discharge Plan Condition: Stable Disposition: ADMITTED TO [facility] Referrals: No Primary Care Phys,NOPCP [Primary Care Provider] -
[2017-07-11] MEDS ORDERED: diPHENhydraMINE IV* 50 MG/ML 1 ml VIAL (BENADRYL) IM ONE (20:51)
[2017-07-12] MEDS ORDERED: Ibuprofen TAB* 600 MG PO ONE ×4 (01:26→20:16)
[2017-07-12] MEDS: Nicotine GUM* 2 MG PO PRN ×6 (01:43→19:33)
[2017-07-12] MEDS: Benztropine TAB* 1 MG PO SCH (08:22)
[2017-07-12] MEDS ORDERED: Ibuprofen TAB* 600 MG ONE (08:26)
[2017-07-12] MEDS ORDERED: LORazepam TAB(*) 1 MG PO ONE (11:09)
[2017-07-12] MEDS ORDERED: LORazepam TAB(*) 1 MG ONE (11:14)
--- NOTE | 2017-07-12 12:30 | PN ---
ED Flex Patient Progress Note Subjective: This is a 26 year-old F who is pending transfer to another psychiatric facility secondary to SI . Pt offers no complaints at this time. Objective: Vitals: General NAD, eating lunch w/o difficulty. Alert and oriented x3. Heart: RRR Lungs: breathing easily, no SOB at rest and w/ ambulation INTEG: scarred, healing linear crain over B/L UE's MARIA R: FROM UE's and LE's - ambulates w/o difficulty PSYCH: requesting ativan earlier for anxiety - this helped - she is in good spirits and occasionally emerges from room to talk w/ charge nurse Assessment: SI Plan: Pending psychiatric transfer. Will f/u daily while here and order meds PRN. Vital Signs Temp Pulse Resp BP Pulse Ox 99.3 F 99 17 135/99 98 07/11/17 15:11 07/11/17 15:11 07/11/17 15:11 07/11/17 15:11 07/11/17 15:11 Lab Results - Entire Visit 07/11/17 07/11/17 07/11/17 15:40 15:40 15:20 WBC 16.9 H RBC 4.34 Hgb 12.4 Hct 37 MCV 85 MCH 29 MCHC 34 RDW 16 H Plt Count 304 MPV 9 Neut % (Auto) 65.9 Lymph % (Auto) 18.9 L Bartholomew % (Auto) 11.5 H Eos % (Auto) 2.3 Baso % (Auto) 1.4 Absolute Neuts (auto) 11.1 H Absolute Lymphs (auto) 3.2 Absolute Monos (auto) 1.9 H Absolute Eos (auto) 0.4 Absolute Basos (auto) 0.2 Absolute Nucleated RBC 0 Nucleated RBC % 0 Sodium 134 Potassium 4.0 Chloride 99 L Carbon Dioxide 28 Anion Gap 7 BUN 8 Creatinine 0.88 Est GFR ( Amer) 98.4 Est GFR (Non-Af Amer) 76.5 BUN/Creatinine Ratio 9.1 Glucose 91 Calcium 9.2 Total Bilirubin 0.50 AST 14 ALT 16 Alkaline Phosphatase 61 Total Protein 7.7 Albumin 4.1 Globulin 3.6 Albumin/Globulin Ratio 1.1 TSH 0.74 Urine Color Yellow Urine Appearance Cloudy Urine pH 5.0 Ur Specific [place] 1.023 Urine Protein 1+(30 mg/dl) H Urine Ketones Negative Urine Blood 1+ H Urine Nitrate Negative Urine Bilirubin Negative Urine Urobilinogen Positive H Ur Leukocyte Esterase 3+ H Urine WBC (Auto) 3+(>20/hpf) H Urine RBC (Auto) 3+(>10/hpf) H Ur Squamous Epith Cells Present H Urine Bacteria 1+ H Urine Glucose Negative Salicylates < 2.50 Urine Opiates Screen Acetaminophen < 15 Ur Barbiturates Screen Ur Phencyclidine Scrn Ur Amphetamines Screen U Benzodiazepines Scrn Urine Cocaine Screen U Cannabinoids Screen Serum Alcohol < 10 07/11/17 15:20 WBC RBC Hgb Hct MCV MCH MCHC RDW Plt Count MPV Neut % (Auto) Lymph % (Auto) Bartholomew % (Auto) Eos % (Auto) Baso % (Auto) Absolute Neuts (auto) Absolute Lymphs (auto) Absolute Monos (auto) Absolute Eos (auto) Absolute Basos (auto) Absolute Nucleated RBC Nucleated RBC % Sodium Potassium Chloride Carbon Dioxide Anion Gap BUN Creatinine Est GFR ( Amer) Est GFR (Non-Af Amer) BUN/Creatinine Ratio Glucose Calcium Total Bilirubin AST ALT Alkaline Phosphatase Total Protein Albumin Globulin Albumin/Globulin Ratio TSH Urine Color Urine Appearance Urine pH Ur Specific [place] Urine Protein Urine Ketones Urine Blood Urine Nitrate Urine Bilirubin Urine Urobilinogen Ur Leukocyte Esterase Urine WBC (Auto) Urine RBC (Auto) Ur Squamous Epith Cells Urine Bacteria Urine Glucose Salicylates Urine Opiates Screen None detected Acetaminophen Ur Barbiturates Screen None detected Ur Phencyclidine Scrn None detected Ur Amphetamines Screen None detected U Benzodiazepines Scrn Presumptive positive H Urine Cocaine Screen None detected U Cannabinoids Screen None detected Serum Alcohol
[2017-07-12] MEDS: Nicotine Inhaler* 10 MG AMP INH PRN (13:22)
[2017-07-12] MEDS ORDERED: Diazepam TAB(*) 5 MG PO ONE (13:59)
[2017-07-12] MEDS ORDERED: Iohexol 350* (CONTRAST) 500 ML MDV IV ONE (17:37)
[2017-07-12] MEDS ORDERED: Zolpidem TAB* 10 MG PO PRN (18:38)
[2017-07-12] MEDS ORDERED: Diazepam TAB(*) 2 MG PO PRN (18:38)
[2017-07-13] MEDS: Nicotine GUM* 2 MG PO PRN ×3 (00:46→08:43)
[2017-07-13] MEDS: Nicotine Inhaler* 10 MG AMP INH PRN (04:32)
[2017-07-13] MEDS: Ibuprofen TAB* 600 MG PO ONE (04:36)
[2017-07-13] MEDS ORDERED: Ziprasidone IM INJ* 20 MG/ML VIAL IM ONE (08:11)
[2017-07-13] MEDS ORDERED: LORazepam INJ* 2 MG/ML 1 ML VIAL IM PRN (08:14)
[2017-07-13] MEDS ORDERED: Ziprasidone IM INJ* 20 MG/ML VIAL ONE (08:14)
[2017-07-13] MEDS ORDERED: Diazepam TAB(*) 5 MG PO ONE (08:31)
[2017-07-13] MEDS: Benztropine TAB* 1 MG PO SCH (08:43)
[2017-07-13 09:36] VITALS: BP 162/92
== END 2017-07-13 09:21 | disposition home or self-care (01) ==
LOC: ED 15:03
DX: F31.9 Bipolar disorder, unspecified (principal); F17.210 Nicotine dependence, cigarettes, uncomplicated
CPT/HCPCS: 36415; 80053; 80307; 80320; 80329; 81003; 81015; 84443; 84702; 85025; 87086; 93005; 99285; A9270-GY; G0480; J3486

== ENCOUNTER 2017-07-20 09:22 | Emergency (ER) | payer OTHER ==
[2017-07-20 09:40] VITALS: BP 141/71
[2017-07-20 10:01] LABS: Hematocrit 37 % (35-47); Hemoglobin 12.7 g/dl (12.0-16.0); Mean Corpuscular HGB Conc 34 g/dl (31-36); Mean Corpuscular Hemoglobin 29 pg (27-31); Mean Corpuscular Volume 85 fL (80-97); Mean Platelet Volume 8 um3 (7.4-10.4); Red Cell Distribution Width 15 % (10.5-15); White Blood Count 14.2 10^3/ul (3.5-10.8)
[2017-07-20 10:17] LABS: ALT 33 U/L (7-52); AST 24 U/L (13-39); Albumin 4.1 g/dL (3.2-5.2); Alkaline Phosphatase 82 U/L (34-104); Anion Gap 8 mmol/L (2-11); BUN/Creatinine Ratio 12.3 (8-20); Blood Urea Nitrogen 10 mg/dL (6-24); CO2 Carbon Dioxide 25 mmol/L (22-32); Calcium 9.5 mg/dL (8.6-10.3); Chloride 104 mmol/L (101-111); EGFR African American 108.3 (>60); EGFR Non-African American 84.2 (>60); Globulin 3.5 g/dL (2-4); Glucose 93 mg/dL (70-100); Potassium 3.8 mmol/L (3.5-5.0); Sodium 137 mmol/L (133-145); Total Protein 7.6 g/dL (6.4-8.9)
[2017-07-20 10:26] LABS: Acetaminophen < 15 mcg/mL; Alcohol < 10 mg/dL (<10); Salicylate < 2.50 mg/dL (<30)
[2017-07-20 10:40] LABS: TSH (Thyroid Stimulating Horm) 1.43 mcIU/mL (0.34-5.60)
[2017-07-20] MEDS ORDERED: Ibuprofen TAB* 800 MG PO ONE (11:35)
[2017-07-20] MEDS: Nicotine GUM* 2 MG PO PRN ×2 (14:28→17:06)
[2017-07-20 14:31] LABS: Urine Bacteria Absent (Absent); Urine Bilirubin Negative (Negative); Urine Glucose Negative (Negative); Urine Nitrite Negative (Negative)
[2017-07-20 14:40] LABS: Benzodiazepine Urine Screen Presumptive Positive (None Detect)
[2017-07-20] MEDS ORDERED: hydrOXYzine HCL TAB* 50 MG PO ONE (16:18)
--- NOTE | 2017-07-20 22:24 | ED ---
Jarrell Lofton Gabriel, scribed for Ramandeep Guidry MD on 07/20/17 at 2048 . Progress - Progress Note Progress Note: This patient was signed out from Dr. Liu, pending disposition, awaiting MHE. After a graphic coordinator evaluation of the patient they deemed her stable. Therefore the patient will be discharged to home with Dx of borderline personality disorder. Pt will follow up with [facility] during her next weekly appointment. When we discussed discharge with the patient she was agreeable with the plan. She also denied hallucinations, SI, and HI. - Consult/PCP Time Called: 13:56 Course/Dx - Diagnoses Provider Diagnoses: Overdose The documentation as recorded by the Jarrell haskins Gabriel accurately reflects the service I personally performed and the decisions made by Brea youngblood Norma, MD.
--- NOTE | 2017-07-22 12:04 | ED ---
Harrison Lofton Angela, scribed for Triston Liu MD on 07/20/17 at 0945 . Substance Abuse/Use - HPI Summary HPI Summary: This pt is a 26 y/o female presenting to [facility] via EMS for overdose today. Pt reports that she took approximately 15 pills of Valium. She notes she took 8 tablets (5 mg each) of Valium at 07:30 and then took the rest while she was in [facility]. Pt states "I can't live anymore" and took the pills because she wanted to kill herself. She reports she would like to sleep here for a couple of hours. Denies SOB, chest pain, nausea, vomiting. Per nurse's note, pt is prescribed Valium TID (no more than 3 tabs daily), which was last filled on 07/19. There were originally 21 tabs in the bottle. - History Of Current Complaint Stated Complaint: 945 Hx Obtained From: Patient Hx Last Menstrual Period: IUD Onset/Duration of Drug/ETOH Abuse: Hours Ingestion History: Type/Name Of Drug - Valium, Amount Ingested - approx 15 tabs , Approximate Time Of Ingestion - ~ 07:30 Overdose Characteristics: Oral Severity Currently: Severe Character: Lethargic Related Hx: Suicidal, Suicidal: Thoughts, Suicidal: Plan - Allergies/Home Medications Allergies/Adverse Reactions: Allergies Allergy/AdvReac Type Severity Reaction Status Date / Time Penicillin V Allergy Severe Hives Verified 07/07/17 16:17 Latex Allergy Intermediate Rash Verified 07/07/17 16:17 Lactose Intolerance (GI) Allergy Diarrhea Verified 07/07/17 16:17 glue Allergy Rash Uncoded 07/07/17 16:17 steri strips Allergy Rash Uncoded 07/07/17 16:17 Home Medications: Home Medications Diazepam TAB(*) [Valium TAB(*)] 5 mg PO TID 07/20/17 [History Confirmed 07/20/17 ] FLUoxetine CAP* [PROzac CAP*] 20 mg PO DAILY 07/20/17 [History Confirmed ] Haloperidol TAB* [Haldol TAB*] 5 mg PO TID 07/20/17 [History Confirmed 07/20/17] Nitrofurantoin Monohyd Macro [Macrobid] 100 mg PO BID 07/20/17 [History Confirmed 07/20/17] OLANzapine TAB* [Zyprexa 10 MG TAB*] 10 mg PO BID 07/20/17 [History Confirmed ] Topiramate [Topamax 25 mg tab] 50 mg PO BID 07/20/17 [History Confirmed 07/20/17 ] hydrOXYzine HCL TAB* [Atarax 25 MG TAB*] 25 mg PO Q4HR PRN 07/20/17 [History Confirmed 07/20/17] PMH/Surg Hx/FS Hx/Imm Hx Endocrine/Hematology History: Reports: Hx Unexplained Bleeding Denies: Hx Anticoagulant Therapy, Hx Blood Disorders, Hx Thyroid Disease, Other Endocrine/Hematological Disorders - borderline diabetic Comment Only: Hx Diabetes - Borderline Cardiovascular History: Denies: Hx Hypertension, Hx Pacemaker/ICD, Other Cardiovascular Problems/ Disorders Respiratory History: Denies: Hx Asthma - patient denied, Hx Chronic Bronchitis, Hx Chronic Obstructive Pulmonary Disease (COPD), Hx Cystic Fibrosis, Hx Lung Cancer, Hx Pleural Effusion, Hx Pneumonia, Hx Pulmonary Edema, Hx Pulmonary Embolism, Hx Seasonal Allergies, Hx Sleep Apnea, Other Respiratory Problems/Disorders GI History: Denies: Hx Ulcer, Other GI Disorders History: Reports: Other Problems/Disorders - Urinary Retention [16 Citizen [place] osborne catheter]; and Herpes. Denies: Hx Renal Disease Musculoskeletal History: Denies: Other Musculoskeletal History Sensory History: Denies: Hx Cataracts, Hx Contacts or Glasses, Hx Eye Injury, Hx Eye Prosthesis, Hx Glaucoma, Hx Legally Blind, Hx Macular Degeneration, Hx Deafness , Hx Hearing Aid, Hx Hearing Problem, Other Sensory Impairments Opthamlomology History: Denies: Hx Cataracts, Hx Contacts or Glasses, Hx Eye Injury, Hx Eye Prosthesis, Hx Glaucoma, Hx Legally Blind, Hx Macular Degeneration, Other Sensory Impairments Neurological History: Reports: Hx Developmental Delay, Hx Headaches, Hx Seizures Denies: Hx Dementia, Hx Migraine, Hx Nerve Disease, Hx Spinal Cord Injury, Hx Transient Ischemic Attacks (TIA), Other Neuro Impairments/Disorders Psychiatric History: Reports: Hx Anxiety, Hx Attention Deficit Hyperactivity Disorder, Hx Eating Disorder, Hx Depression, Hx Panic Disorder, Hx Post Traumatic Stress Disorder, Hx Inpatient Treatment, Hx Community Mental Health Tx , Hx Bipolar Disorder, Hx Suicide Attempt, Hx of Violent Episodes Against Others - SEE VIOLENCE HX, Hx Substance Abuse - OD on ativan 03/14/2017, Other Psychiatric Issues/Disorders Comment Only: Hx Schizophrenia - Schizoaffective Disorder - Cancer History Hx Chemotherapy: No Hx Radiation Therapy: No Hx Palliative Cancer Treatment: No - Surgical History Surgery Procedure, Year, and Place: None - Immunization History Date of Tetanus Vaccine: UTD Date of Influenza Vaccine: Unk Infectious Disease History: Reports: Hx of Known/Suspected MRSA, 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 - Social History Alcohol Use: None Alcohol Amount: "drank beer awhile ago" Hx Substance Use: Yes Substance Use Type: Reports: None Substance Use Comment - Amount & Last Used: hx of such Hx Tobacco Use: Yes Smoking Status (MU): Heavy Every Day Tobacco Smoker Type: Cigarettes Amount Used/How Often: 1 pack per day Length of Time of Smoking/Using Tobacco: 3 years Have You Smoked in the Last Year: Yes - Patient has smoked within the last 30 days Review of Systems Positive: Fatigue - sleepy. Negative: Fever, Chills Negative: Chest Pain Negative: Shortness Of Breath Negative: Vomiting, Nausea All Other Systems Reviewed And Are Negative: Yes Physical Exam - Summary Physical Exam Summary: VITAL SIGNS: Reviewed. GENERAL: Patient is a well-developed and nourished female who is lying comfortable in the stretcher. Patient is not in any acute respiratory distress. Pt is groggy. HEAD AND FACE: No signs of trauma. No ecchymosis, hematomas or skull depressions. No sinus tenderness. EYES: PERRLA, EOMI x 2, No injected conjunctiva, no nystagmus. EARS: Hearing grossly intact. Ear canals and tympanic membranes are within normal limits. MOUTH: Oropharynx within normal limits. NECK: Supple, trachea is midline, no adenopathy, no JVD, no carotid bruit, no c- spine tenderness, neck with full ROM. CHEST: Symmetric, no tenderness at palpation LUNGS: Clear to auscultation bilaterally. No wheezing or crackles. CVS: Regular rate and rhythm, S1 and S2 present, no murmurs or gallops appreciated. ABDOMEN: Soft, non-tender. No signs of distention. No rebound no guarding, and no masses palpated. Bowel sounds are normal. EXTREMITIES: FROM in all major joints, no edema, no cyanosis or clubbing. NEURO: Alert and oriented x 3. No acute neurological deficits. Speech is normal and follows commands. SKIN: Dry and warm Triage Information Reviewed: Yes Vital Signs On Initial Exam: Initial Vitals Temp Pulse Resp BP Pulse Ox 97.9 F 88 20 141/71 99 07/20/17 09:25 07/20/17 09:25 07/20/17 09:25 07/20/17 09:25 07/20/17 09:25 Vital Signs Reviewed: Yes Diagnostics - Vital Signs Vital Signs Temp Pulse Resp BP Pulse Ox 07/20/17 12:00 20 07/20/17 11:00 82 19 97 07/20/17 10:00 81 21 95 07/20/17 09:31 87 20 99 07/20/17 09:25 97.9 F 88 20 141/71 99 - Laboratory Lab Results: Lab Results 07/20/17 07/20/17 07/20/17 Range/Units 09:35 09:35 13:52 WBC 14.2 H (3.5-10.8) 10^3/ul RBC 4.40 (4.0-5.4) 10^6/ul Hgb 12.7 (12.0-16.0) g/dl Hct 37 (35-47) % MCV 85 (80-97) fL MCH 29 (27-31) pg MCHC 34 (31-36) g/dl RDW 15 (10.5-15) % Plt Count 349 (150-450) 10^3/ul MPV 8 (7.4-10.4) um3 Neut % (Auto) 66.1 (38-83) % Lymph % (Auto) 20.6 L (25-47) % Tompkins % (Auto) 7.7 (1-9) % Eos % (Auto) 5.1 (0-6) % Baso % (Auto) 0.5 (0-2) % Absolute Neuts (auto) 9.4 H (1.5-7.7) 10^3/ul Absolute Lymphs (auto) 2.9 (1.0-4.8) 10^3/ul Absolute Monos (auto) 1.1 H (0-0.8) 10^3/ul Absolute Eos (auto) 0.7 H (0-0.6) 10^3/ul Absolute Basos (auto) 0.1 (0-0.2) 10^3/ul Absolute Nucleated RBC 0.01 10^3/ul Nucleated RBC % 0 Sodium 137 (133-145) mmol/L Potassium 3.8 (3.5-5.0) mmol/L Chloride 104 (101-111) mmol/L Carbon Dioxide 25 (22-32) mmol/L Anion Gap 8 (2-11) mmol/L BUN 10 (6-24) mg/dL Creatinine 0.81 (0.51-0.95) mg/dL Est GFR ( Amer) 108.3 (>60) Est GFR (Non-Af Amer) 84.2 (>60) BUN/Creatinine Ratio 12.3 (8-20) Glucose 93 (70-100) mg/dL Calcium 9.5 (8.6-10.3) mg/dL Total Bilirubin 0.20 (0.2-1.0) mg/dL AST 24 (13-39) U/L ALT 33 (7-52) U/L Alkaline Phosphatase 82 (34-104) U/L Total Protein 7.6 (6.4-8.9) g/dL Albumin 4.1 (3.2-5.2) g/dL Globulin 3.5 (2-4) g/dL Albumin/Globulin Ratio 1.2 (1-3) TSH 1.43 (0.34-5.60) mcIU/mL Urine Color Urine Appearance Urine pH (5-9) Ur Specific [place] (1.010-1.030) Urine Protein (Negative) Urine Ketones (Negative) Urine Blood (Negative) Urine Nitrate (Negative) Urine Bilirubin (Negative) Urine Urobilinogen (Negative) Ur Leukocyte Esterase (Negative) Urine WBC (Auto) (Absent) Urine RBC (Auto) (Absent) Ur Squamous Epith Cells (Absent) Urine Bacteria (Absent) Urine Glucose (Negative) Urine Ascorbic Acid (Negative) Salicylates < 2.50 (<30) mg/dL Urine Opiates Screen None detected (None Detect) Acetaminophen < 15 mcg/mL Ur Barbiturates Screen None detected (None Detect) Ur Phencyclidine Scrn None detected (None Detect) Ur Amphetamines Screen None detected (None Detect) U Benzodiazepines Scrn Presumptive positive H (None Detect) Urine Cocaine Screen None detected (None Detect) U Cannabinoids Screen None detected (None Detect) Serum Alcohol < 10 (<10) mg/dL 07/20/17 Range/Units 13:52 WBC (3.5-10.8) 10^3/ul RBC (4.0-5.4) 10^6/ul Hgb (12.0-16.0) g/dl Hct (35-47) % MCV (80-97) fL MCH (27-31) pg MCHC (31-36) g/dl RDW (10.5-15) % Plt Count (150-450) 10^3/ul MPV (7.4-10.4) um3 Neut % (Auto) (38-83) % Lymph % (Auto) (25-47) % Tompkins % (Auto) (1-9) % Eos % (Auto) (0-6) % Baso % (Auto) (0-2) % Absolute Neuts (auto) (1.5-7.7) 10^3/ul Absolute Lymphs (auto) (1.0-4.8) 10^3/ul Absolute Monos (auto) (0-0.8) 10^3/ul Absolute Eos (auto) (0-0.6) 10^3/ul Absolute Basos (auto) (0-0.2) 10^3/ul Absolute Nucleated RBC 10^3/ul Nucleated RBC % Sodium (133-145) mmol/L Potassium (3.5-5.0) mmol/L Chloride (101-111) mmol/L Carbon Dioxide (22-32) mmol/L Anion Gap (2-11) mmol/L BUN (6-24) mg/dL Creatinine (0.51-0.95) mg/dL Est GFR ( Amer) (>60) Est GFR (Non-Af Amer) (>60) BUN/Creatinine Ratio (8-20) Glucose (70-100) mg/dL Calcium (8.6-10.3) mg/dL Total Bilirubin (0.2-1.0) mg/dL AST (13-39) U/L ALT (7-52) U/L Alkaline Phosphatase (34-104) U/L Total Protein (6.4-8.9) g/dL Albumin (3.2-5.2) g/dL Globulin (2-4) g/dL Albumin/Globulin Ratio (1-3) TSH (0.34-5.60) mcIU/mL Urine Color Yellow Urine Appearance Cloudy Urine pH 7.0 (5-9) Ur Specific [place] 1.013 (1.010-1.030) Urine Protein Negative (Negative) Urine Ketones Negative (Negative) Urine Blood Negative (Negative) Urine Nitrate Negative (Negative) Urine Bilirubin Negative (Negative) Urine Urobilinogen Negative (Negative) Ur Leukocyte Esterase 3+ H (Negative) Urine WBC (Auto) 3+(>20/hpf) H (Absent) Urine RBC (Auto) 3+(>10/hpf) H (Absent) Ur Squamous Epith Cells Present H (Absent) Urine Bacteria Absent (Absent) Urine Glucose Negative (Negative) Urine Ascorbic Acid * H (Negative) Salicylates (<30) mg/dL Urine Opiates Screen (None Detect) Acetaminophen mcg/mL Ur Barbiturates Screen (None Detect) Ur Phencyclidine Scrn (None Detect) Ur Amphetamines Screen (None Detect) U Benzodiazepines Scrn (None Detect) Urine Cocaine Screen (None Detect) U Cannabinoids Screen (None Detect) Serum Alcohol (<10) mg/dL Result Diagrams: 07/20/17 09:35 07/20/17 09:35 Lab Statement: Any lab studies that have been ordered have been reviewed, and results considered in the medical decision making process. - EKG 0946 Cardiac Rate: NL EKG Rhythm: Sinus Rhythm - at 83 bpm EKG Interpretation: No ST elevation EKG Comparison: No Significant Change - Similar to previous EKG done on . Course/Dx - Course Assessment/Plan: This pt is a 26 y/o female presenting to [facility] via EMS for overdose today. Pt reports that she took approximately 15 pills of Valium. She notes she took 8 tablets (5 mg each) of Valium at 07:30 and then took the rest while she was in [facility]. Pt states "I can't live anymore " and took the pills because she wanted to kill herself. She reports she would like to sleep here for a couple of hours. Denies SOB, chest pain, nausea, vomiting. Per nurse's note, pt is prescribed Valium TID (no more than 3 tabs daily), which was last filled on 07/19. There were originally 21 tabs in the bottle. Test results without significant abnormalities except for WBC of 14.2. Urinalysis is contaminated. Therefore, we will send a urine culture. We spoke with poison control and they requested to observe pt for approximately 6 hours. The pt was medically cleared at 15:30. Dr. Harp is consulting for the pt. The pt is waiting for MHE and disposition. Pt is hemodynamically stable, alert and oriented x3. The pt will be signed out at shift change, pending dispo, awaiting MHE. - Diagnoses Differential Diagnosis/HQI/PQRI: Positive: Acute Psychosis, Anxiety, Depression , Suicidal Risk Provider Diagnoses: Overdose - Physician Notifications Discussed Care Of Patient With: Chely Briones Time Discussed With Above Provider: 11:06 Instructed by Provider To: Other - I discussed the pt's case with Dr. Briones, she recommends to consult Dr. Harp. [12:46] I spoke with Dr. Harp, who will come see the pt in the ED. Discharge - Discharge Plan Condition: Stable Disposition: OTHER Discharge Disposition Comment: signed out at shift change, pending dispo, awaiting MHE. Referrals: No Primary Care Phys,NOPCP [Primary Care Provider] - The documentation as recorded by the Harrison haskins Angela accurately reflects the service I personally performed and the decisions made by me, Triston Liu MD.
== END 2017-07-20 21:06 | disposition home or self-care (01) ==
LOC: ED 09:22
DX: T42.4X1A Poisoning by benzodiazepines, accidental (unintentional), initial encounter (principal); R53.83 Other fatigue; F17.210 Nicotine dependence, cigarettes, uncomplicated; Y92.9 Unspecified place or not applicable
CPT/HCPCS: 36415; 80053; 80307; 80320; 80329; 81003; 81015; 84443; 85025; 87086; 93005; 99285; A9270-GY; G0480

== ENCOUNTER 2017-07-23 14:14 | Inpatient (IN) | payer MEDICAID, OTHER ==
[2017-07-23] MEDS ORDERED: LORazepam INJ* 2 MG/ML 1 ML VIAL IM ONE (15:05)
[2017-07-23] MEDS ORDERED: diPHENhydraMINE IV* 50 MG/ML 1 ml VIAL (BENADRYL) IM ONE (15:05)
[2017-07-23] MEDS ORDERED: Haloperidol INJ IV/IM* 5 MG/ML AMP IM ONE (15:05)
[2017-07-23 15:22] LABS: Hematocrit 37 % (35-47); Hemoglobin 12.2 g/dl (12.0-16.0); Mean Corpuscular HGB Conc 33 g/dl (31-36); Mean Corpuscular Hemoglobin 28 pg (27-31); Mean Corpuscular Volume 86 fL (80-97); Mean Platelet Volume 8 um3 (7.4-10.4); Red Blood Count 4.29 10^6/ul (4.0-5.4); Red Cell Distribution Width 16 % (10.5-15); White Blood Count 15.3 10^3/ul (3.5-10.8)
[2017-07-23 15:22] LABS: Urine Bacteria Absent (Absent); Urine Bilirubin Negative (Negative); Urine Glucose Negative (Negative); Urine Nitrite Negative (Negative)
[2017-07-23 15:32] LABS: Benzodiazepine Urine Screen Presumptive Positive (None Detect)
[2017-07-23 15:37] LABS: ALT 37 U/L (7-52); AST 22 U/L (13-39); Alkaline Phosphatase 66 U/L (34-104); Anion Gap 8 mmol/L (2-11); BUN/Creatinine Ratio 13.1 (8-20); Blood Urea Nitrogen 11 mg/dL (6-24); CO2 Carbon Dioxide 24 mmol/L (22-32); Calcium 9.2 mg/dL (8.6-10.3); Chloride 106 mmol/L (101-111); EGFR African American 103.8 (>60); EGFR Non-African American 80.7 (>60); Globulin 3.5 g/dL (2-4); Glucose 107 mg/dL (70-100); Potassium 3.7 mmol/L (3.5-5.0); Sodium 138 mmol/L (133-145); Total Protein 7.5 g/dL (6.4-8.9)
[2017-07-23 16:02] LABS: Acetaminophen < 15 mcg/mL; Alcohol < 10 mg/dL (<10); Salicylate < 2.50 mg/dL (<30)
[2017-07-23] MEDS ORDERED: Nicotine GUM* 2 MG ONE (16:02)
[2017-07-23] MEDS: Nicotine GUM* 2 MG PO PRN ×3 (16:03→21:35)
[2017-07-23 16:14] LABS: TSH (Thyroid Stimulating Horm) 1.12 mcIU/mL (0.34-5.60)
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
[2017-07-23] MEDS ORDERED: chlorproMAZINE TAB* 50 MG PO PRN (18:18)
[2017-07-23] MEDS ORDERED: chlorproMAZINE TAB* 25 MG ONE (18:23)
[2017-07-23] MEDS ORDERED: Mouth Piece, Nicotine* 1 EACH CARTRIDGE ONE (21:35)
[2017-07-23] MEDS ORDERED: Nicotine Inhaler* 10 MG AMP ONE (21:35)
[2017-07-24] MEDS ORDERED: Al Hydrox/Mg Hydrox/Simet LIQ* 30 ML UDC PO PRN (03:44)
[2017-07-24] MEDS ORDERED: Mouth Piece, Nicotine* 1 EACH CARTRIDGE INH SCH (03:44)
[2017-07-24] MEDS ORDERED: Acetaminophen TAB* 325 MG PO PRN (03:44)
[2017-07-24] MEDS ORDERED: chlorproMAZINE TAB* 100 MG PO PRN (03:45)
[2017-07-24] MEDS: Nicotine Inhaler* 10 MG AMP INH PRN ×4 (07:53→20:45)
[2017-07-24] MEDS: Nicotine GUM* 2 MG PO PRN ×6 (07:54→20:44)
[2017-07-24] MEDS: Nitrofurantoin Macrocrystals* 100 MG CAP PO SCH ×2 (07:54→20:46)
[2017-07-24] MEDS: FLUoxetine CAP* 20 MG PO SCH (07:54)
[2017-07-24 08:17] VITALS: BP 136/89
[2017-07-24] MEDS: Vitamin THERAPEUTIC TAB PO SCH (08:39)
[2017-07-24] MEDS: Diazepam TAB(*) 5 MG PO PRN (16:10)
--- NOTE | 2017-07-24 17:12 | RAD ---
INDICATION: Right humerus pain, decreased range of motion. TECHNIQUE: 2 views of the right humerus were obtained. FINDINGS: The bones are in normal alignment. No fracture is seen. IMPRESSION: NO EVIDENCE FOR FRACTURE.
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
[2017-07-24] MEDS: Diazepam TAB(*) 5 MG PO SCH (20:46)
[2017-07-25] MEDS: Nicotine GUM* 2 MG PO PRN ×4 (06:29→13:45)
[2017-07-25] MEDS: Nicotine Inhaler* 10 MG AMP INH PRN (06:37)
[2017-07-25] MEDS: FLUoxetine CAP* 20 MG PO SCH (09:39)
[2017-07-25] MEDS: Nitrofurantoin Macrocrystals* 100 MG CAP PO SCH (09:40)
[2017-07-25] MEDS: Diazepam TAB(*) 5 MG PO SCH (09:40)
[2017-07-25] MEDS: Vitamin THERAPEUTIC TAB PO SCH (09:42)
[2017-07-25] MEDS ORDERED: Ibuprofen TAB* 600 MG PO PRN (10:14)
[2017-07-25] MEDS ORDERED: Diazepam TAB(*) 5 MG PO PRN (13:41)
[2017-07-25] MEDS: Diazepam TAB(*) 5 MG PO PRN (13:44)
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
[2020-08-07] MEDS ORDERED: Haloperidol Decanoate* 50 MG/ML AMP IM SCH (09:00)
== END 2017-07-25 15:50 | disposition home or self-care (01) | DRG 755 ==
LOC: ED 14:14 → BSU 22:04
PROVIDERS: ADMIT Psychiatry & Neurology Psychiatry; ATTEND Psychiatry & Neurology Psychiatry
DX: F43.10 Post-traumatic stress disorder, unspecified (principal); R45.851 Suicidal ideations; F50.9 Eating disorder, unspecified; R45.850 Homicidal ideations; F90.9 Attention-deficit hyperactivity disorder, unspecified type; F41.0 Panic disorder [episodic paroxysmal anxiety]; F31.9 Bipolar disorder, unspecified; F17.210 Nicotine dependence, cigarettes, uncomplicated; F60.3 Borderline personality disorder; I10 Essential (primary) hypertension; E66.9 Obesity, unspecified; F43.25 Adjustment disorder with mixed disturbance of emotions and conduct; Z88.0 Allergy status to penicillin; Z88.8 Allergy status to other drugs, medicaments and biological substances; Z91.040 Latex allergy status; Z91.5 Personal history of self-harm; Z81.8 Family history of other mental and behavioral disorders; Z81.1 Family history of alcohol abuse and dependence; Z68.37 Body mass index [BMI] 37.0-37.9, adult
CPT/HCPCS: 36415; 80053; 80307; 80320; 80329; 81003; 81015; 84443; 84702; 85025; 87086; 99222; 99238; A9270-GY; G0480; J1200; J1630; J2060

== ENCOUNTER 2017-07-25 20:26 | Emergency (ER) | payer MEDICAID, OTHER ==
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
[2017-07-25 21:19] LABS: Hematocrit 38 % (35-47); Hemoglobin 12.8 g/dl (12.0-16.0); Mean Corpuscular HGB Conc 33 g/dl (31-36); Mean Corpuscular Hemoglobin 29 pg (27-31); Mean Corpuscular Volume 86 fL (80-97); Mean Platelet Volume 8 um3 (7.4-10.4); Red Blood Count 4.48 10^6/ul (4.0-5.4); Red Cell Distribution Width 15 % (10.5-15); White Blood Count 16.9 10^3/ul (3.5-10.8)
[2017-07-25 21:27] LABS: ALT 29 U/L (7-52); AST 18 U/L (13-39); Albumin 4.4 g/dL (3.2-5.2); Alkaline Phosphatase 77 U/L (34-104); Anion Gap 8 mmol/L (2-11); BUN/Creatinine Ratio 18.7 (8-20); Blood Urea Nitrogen 14 mg/dL (6-24); CO2 Carbon Dioxide 25 mmol/L (22-32); Calcium 9.9 mg/dL (8.6-10.3); Chloride 103 mmol/L (101-111); EGFR African American 118.3 (>60); Globulin 3.9 g/dL (2-4); Glucose 92 mg/dL (70-100); Potassium 3.9 mmol/L (3.5-5.0); Sodium 136 mmol/L (133-145); Total Protein 8.3 g/dL (6.4-8.9)
[2017-07-25 21:44] LABS: Acetaminophen < 15 mcg/mL; Alcohol < 10 mg/dL (<10); Salicylate < 2.50 mg/dL (<30)
[2017-07-25 21:59] LABS: TSH (Thyroid Stimulating Horm) 3.92 mcIU/mL (0.34-5.60)
[2017-07-26 06:09] VITALS: BP 134/86
[2017-07-26 06:36] LABS: Urine Bacteria Absent (Absent); Urine Bilirubin Negative (Negative); Urine Glucose Negative (Negative); Urine Nitrite Negative (Negative)
[2017-07-26 06:52] LABS: Benzodiazepine Urine Screen Presumptive Positive (None Detect)
[2017-07-26] MEDS ORDERED: Diazepam TAB(*) 5 MG PO ONE (09:02)
[2017-07-26] MEDS ORDERED: Nicotine GUM* 2 MG PO PRN (09:04)
[2017-07-26] MEDS ORDERED: Nicotine GUM* 2 MG ONE (09:06)
--- NOTE | 2017-07-26 10:37 | CONSULT ---
Consult Consult: Etl Manager spoke with Nicole Quintana from [facility]. [phone]. Patient has appt at her apt with Nicole today at 11:00. Nicole agreed to crab picker patient from ED to assist in problem-solving with housing. Patient and Nicole notified of appt with Dr Sienna Quinonez at [facility] today at 3pm. Etl Manager phoned [facility] to clarify appt. Above appt with Dr Quinonez was entered in their system erroneously. Patient is scheduled to see Dr Freddy Ash on SundayJul 31 at 10:30am. Patient can see her therapist, Hope Khan at 2:30 today. Etl Manager left VM with Nicole Quintana with above information.
== END 2017-07-26 11:14 ==
LOC: ED 20:26
DX: R45.850 Homicidal ideations (principal); R73.03 Prediabetes; R62.50 Unspecified lack of expected normal physiological development in childhood; R56.9 Unspecified convulsions; F90.9 Attention-deficit hyperactivity disorder, unspecified type; F41.9 Anxiety disorder, unspecified; F32.9 Major depressive disorder, single episode, unspecified; Z97.5 Presence of (intrauterine) contraceptive device; Z91.040 Latex allergy status; Z88.0 Allergy status to penicillin; Z91.048 Other nonmedicinal substance allergy status; F17.210 Nicotine dependence, cigarettes, uncomplicated
CPT/HCPCS: 36415; 80053; 80307; 80320; 80329; 81003; 81015; 84443; 85025; 87086; 99282; A9270-GY; G0480

== ENCOUNTER 2017-07-27 13:06 | Emergency (ER) | payer MEDICAID ==
[2017-07-27] MEDS ORDERED: Naloxone Nasal Spray* 4 MG/0.1 ML NASAL.SPR NASAL ONE (13:20)
[2017-07-27] MEDS ORDERED: Naloxone Nasal Spray* 4 MG/0.1 ML NASAL.SPR NASAL PRN (13:22)
[2017-07-27 13:33] VITALS: BP 135/93
--- NOTE | 2017-07-27 13:35 | UC ---
Substance Abuse HPI - HPI Summary HPI Summary: PT REPORTS SHE TOOK 5MG VALIUM TABS X 10 AND A "WHOLE BOTTLE OF OLANZAPINE" ABOUT 30 MIN NIKE ATHLETE. PT IS SOMNOLENT. ADMITS TO WANTING TO KILL HERSELF. IS MAINTAINING HER AIRWAY. DENIES ANY OPIOID USE. - History Of Current Complaint Stated Complaint: TOOK TOO MUCH MEDICATION Time Seen by Provider: 07/27/17 13:14 Hx Obtained From: Patient Hx Last Menstrual Period: IUD Severity Currently: Moderate Character: Lethargic Aggravating Factor(s): Nothing Alleviating Factor(s): Nothing Associated Signs And Symptoms: Positive: Negative Has Suicidal: Thoughts, Demonstrates Gesture, Has Prior Attempt(s) - Allergies/Home Medications Allergies/Adverse Reactions: Allergies Allergy/AdvReac Type Severity Reaction Status Date / Time Penicillin V Allergy Severe Hives Verified 07/07/17 16:17 Latex Allergy Intermediate Rash Verified 07/07/17 16:17 Lactose Intolerance (GI) Allergy Diarrhea Verified 07/07/17 16:17 glue Allergy Rash Uncoded 07/07/17 16:17 steri strips Allergy Rash Uncoded 07/07/17 16:17 PMH/Surg Hx/FS Hx/Imm Hx Psychological History: Depression, Bipolar Disorder, Schizophrenia Other History Of: Negative For: Anticoagulant Therapy - Surgical History Surgical History: None Surgery Procedure, Year, and Place: None - Family History Known Family History: Positive: Unknown - Pt is adopted, known some Hx of mood d /o, Other - FMHx of depression, mood disorders, and anxiety disorders Family History: Patient is adopted - FHx mostly unknown except significant for alcohol abuse since the patient was born with Alcohol Syndrome. - Social History Alcohol Use: Occasionally Alcohol Amount: "drank beer awhile ago" Substance Use Type: None Substance Use Comment - Amount & Last Used: hx of such Smoking Status (MU): Heavy Every Day Tobacco Smoker Type: Cigarettes Amount Used/How Often: 1 pack per day Length of Time of Smoking/Using Tobacco: 3 years Have You Smoked in the Last Year: Yes - Patient has smoked within the last 30 days Household Exposure Type: Cigarettes - Immunization History Most Recent Influenza Vaccination: 05/21/16 Most Recent Tetanus Shot: Less than 10 years Most Recent Pneumonia Vaccination: 10/31/15 Review of Systems Constitutional: Other - LETHARGIC Respiratory: Negative Cardiovascular: Negative Gastrointestinal: Negative All Other Systems Reviewed And Are Negative: Yes Physical Exam Triage Information Reviewed: Yes Appearance: No Pain Distress, Well-Nourished, Other: - SEDATED Vital Signs: Initial Vital Signs Temp 97.2 F 07/27/17 13:29 Pulse 113 07/27/17 13:29 Resp 14 07/27/17 13:29 BP 135/93 07/27/17 13:29 Pulse Ox 98 07/27/17 13:29 Vital Signs Reviewed: Yes Eyes: Positive: Conjunctiva Clear ENT: Positive: Hearing grossly normal Neck: Positive: Supple Respiratory Exam: Normal Cardiovascular: Positive: Tachycardia Abdomen Description: Positive: Soft Musculoskeletal: Positive: No Edema Neurological: Positive: Lethargic - BUT EASILY RESPONSIVE TO VOICE Skin: Negative: rashes Substance Abuse Course/Dx - Course Course Of Treatment: MORE ALERT WITH 4MG NASAL NARCAN. O2 BY NC PLACED. PIV ESTABLISHED AND NS STARTED. AMBULANCE ARRIVED TO TRANSFER TO [facility] ED. - Differential Dx/Diagnosis Clinic Physician Diagnoses: OVERDOSE - VALIUM, OLANZAPINE - Physician Notification/Consults Discussed Patient Care With: Sierra Mcfadden - TO [facility] ED BY AMBULANCE Time Discussed With Above Provider: 13:34 Instructed by Provider To: MD Will See In ED Discharge - Discharge Plan Condition: Stable Disposition: TRANS HIGHER LVL OF CARE FAC Referrals: No Primary Care Phys,NOPCP [Primary Care Provider] -
[2017-07-27] MEDS ORDERED: NS 0.9% 1000 ML* 1,000 ML IV SCH (14:00)
== END 2017-07-27 13:30 | disposition short-term general hospital (02) ==
LOC: UCEAST 13:06
DX: T42.4X2A Poisoning by benzodiazepines, intentional self-harm, initial encounter (principal); T43.592A Poisoning by other antipsychotics and neuroleptics, intentional self-harm, initial encounter; Y92.9 Unspecified place or not applicable; Z72.89 Other problems related to lifestyle; Z72.0 Tobacco use
CPT/HCPCS: 99213; A9270-GY; G0463

== ENCOUNTER 2017-07-27 13:46 | Emergency (ER) | payer MEDICAID ==
[2017-07-27] MEDS ORDERED: NS 0.9% 1000 ML* 1,000 ML IV ONE (14:32)
[2017-07-27 14:58] LABS: Hematocrit 38 % (35-47); Mean Corpuscular HGB Conc 34 g/dl (31-36); Mean Corpuscular Hemoglobin 29 pg (27-31); Mean Corpuscular Volume 86 fL (80-97); Mean Platelet Volume 8 um3 (7.4-10.4); Red Blood Count 4.45 10^6/ul (4.0-5.4); Red Cell Distribution Width 16 % (10.5-15); White Blood Count 13.6 10^3/ul (3.5-10.8)
[2017-07-27] MEDS ORDERED: Charcoal ACTIVATED* 25 GM/120 ML BTL PO ONE (15:09)
[2017-07-27 15:17] LABS: ALT 32 U/L (7-52); AST 21 U/L (13-39); Albumin 4.3 g/dL (3.2-5.2); Alkaline Phosphatase 79 U/L (34-104); Anion Gap 6 mmol/L (2-11); BUN/Creatinine Ratio 20.2 (8-20); Blood Urea Nitrogen 17 mg/dL (6-24); CO2 Carbon Dioxide 27 mmol/L (22-32); Calcium 9.6 mg/dL (8.6-10.3); Chloride 105 mmol/L (101-111); Creatine Kinase 91 U/L (10-223); EGFR African American 103.8 (>60); EGFR Non-African American 80.7 (>60); Globulin 3.6 g/dL (2-4); Glucose 93 mg/dL (70-100); Potassium 3.9 mmol/L (3.5-5.0); Sodium 138 mmol/L (133-145); Total Protein 7.9 g/dL (6.4-8.9)
--- NOTE | 2017-07-27 15:24 | RAD ---
HISTORY: Overdose COMPARISONS: March 14, 2017 VIEWS: 1: frontal portable view of the chest at 6:33 PM FINDINGS: LINES AND TUBES: None. CARDIOMEDIASTINAL SILHOUETTE: The cardiomediastinal silhouette is normal for portable technique. PLEURA: The costophrenic angles are sharp. No pleural abnormalities are noted. LUNG PARENCHYMA: The lungs are clear. ABDOMEN: The upper abdomen is clear. There is no subphrenic gas. BONES AND SOFT TISSUES: No bone or soft tissue abnormalities are noted. IMPRESSION: NO ACTIVE CARDIOPULMONARY DISEASE.
[2017-07-27 15:38] LABS: Acetaminophen < 15 mcg/mL; Alcohol < 10 mg/dL (<10); Lithium < 0.10 mmol/L (0.6-1.2); Salicylate < 2.50 mg/dL (<30)
[2017-07-27 15:52] LABS: TSH (Thyroid Stimulating Horm) 0.91 mcIU/mL (0.34-5.60)
--- NOTE | 2017-07-27 20:53 | ED ---
Arpit Lofton Tiffany, scribed for Sierra Mcfadden MD on 07/27/17 at 1504 . Psychiatric Complaint - HPI Summary HPI Summary: This patient is a 26 year old F [place] [facility] [place] [facility] s/p substance overdose early this afternoon. Per [facility] [place], the patient took 5 mg valium tabs x 10 and a whole bottle of olanzapine, and reported SI. The patient reports a funny feeling in her leg and says she cant sit still. Symptoms aggravated by nothing and alleviated by nothing. The patient is lethargic but is answering questions appropriately. Patient denies vomiting. Pt states she took the overdose at 1pm today, per [facility] [place] [facility] [place] 13[place]06. Pt states she walked to urgent care to seek medical attention. Pt denies other co-ingestion and states these were her medications. Yesterday, the patient was brought in by police after making angry statements at her landlord. Per [facility] records 07/26/17, the patient took one valium pill and was having HI but denied SI. Patient was eventually discharged after medical clearance per [facility] records 07/26/17. - History Of Current Complaint Chief Complaint: EDMentalHealth Hx Obtained From: Patient, Medical Records - [facility] [place], [facility] record from 07/26/17 Hx Last Menstrual Period: IUD ?: No Onset/Duration: Sudden Onset, Still Present Timing: Constant Severity Initially: Moderate Severity Currently: Moderate Character: Lethargic Aggravating Factor(s): Nothing Alleviating Factor(s): Nothing Associated Signs And Symptoms: Positive: Negative - Vomitting Related History: Positive For: Prior Psychiatric Issues, Admissions Related To Substance Abuse Has Suicidal: Reports: Thoughts. Denies: With A Plan Has Homicidal: Denies: Thoughts, With A Plan Ingestion History: Type/Name Of Drug - Valium and Olanzapine, Amount Ingested - 5 x 10mg valium; "rest of a whole bottle of olanzapine", Approximate Time Of Ingestion - 1300 - Risk Factor(s) Completed Suicide Risk Factors: [place], Living Alone, Past Suicide Attempt - Allergies/Home Medications Allergies/Adverse Reactions: Allergies Allergy/AdvReac Type Severity Reaction Status Date / Time Penicillin V Allergy Severe Hives Verified 07/07/17 16:17 Latex Allergy Intermediate Rash Verified 07/07/17 16:17 Lactose Intolerance (GI) Allergy Diarrhea Verified 07/07/17 16:17 glue Allergy Rash Uncoded 07/07/17 16:17 steri strips Allergy Rash Uncoded 07/07/17 16:17 PMH/Surg Hx/FS Hx/Imm Hx Previously Healthy: No Endocrine/Hematology History: Reports: Hx Unexplained Bleeding Denies: Hx Anticoagulant Therapy, Hx Blood Disorders, Hx Thyroid Disease Comment Only: Hx Diabetes - Borderline Cardiovascular History: Denies: Hx Hypertension, Hx Pacemaker/ICD, Other Cardiovascular Problems/ Disorders Respiratory History: Denies: Hx Asthma - patient denied, Hx Chronic Bronchitis, Hx Chronic Obstructive Pulmonary Disease (COPD), Hx Cystic Fibrosis, Hx Lung Cancer, Hx Pleural Effusion, Hx Pneumonia, Hx Pulmonary Edema, Hx Pulmonary Embolism, Hx Seasonal Allergies, Hx Sleep Apnea, Other Respiratory Problems/Disorders GI History: Denies: Hx Ulcer, Other GI Disorders History: Reports: Other Problems/Disorders - Urinary Retention Denies: Hx Renal Disease Musculoskeletal History: Denies: Other Musculoskeletal History Sensory History: Reports: Hx Contacts or Glasses - Has glasses with her Denies: Hx Cataracts, Hx Eye Injury, Hx Eye Prosthesis, Hx Glaucoma, Hx Legally Blind, Hx Macular Degeneration, Hx Deafness, Hx Hearing Aid, Hx Hearing Problem, Other Sensory Impairments Opthamlomology History: Reports: Hx Contacts or Glasses - Has glasses with her Denies: Hx Cataracts, Hx Eye Injury, Hx Eye Prosthesis, Hx Glaucoma, Hx Legally Blind, Hx Macular Degeneration, Other Sensory Impairments Neurological History: Reports: Hx Developmental Delay, Hx Headaches, Hx Seizures Denies: Hx Dementia, Hx Migraine, Hx Nerve Disease, Hx Spinal Cord Injury, Hx Transient Ischemic Attacks (TIA), Other Neuro Impairments/Disorders Psychiatric History: Reports: Hx Anxiety, Hx Attention Deficit Hyperactivity Disorder, Hx Eating Disorder, Hx Depression, Hx Panic Disorder, Hx Post Traumatic Stress Disorder, Hx Inpatient Treatment - multiple, Hx Community Mental Health Tx - [facility], Hx Bipolar Disorder, Hx Suicide Attempt - multiple, Hx of Violent Episodes Against Others, Hx Substance Abuse - OD on ativan, ambien, valium, Other Psychiatric Issues/Disorders - Mood Disorder, Borderline Comment Only: Hx Schizophrenia - Schizoaffective Disorder - Cancer History Hx Chemotherapy: No Hx Radiation Therapy: No Hx Palliative Cancer Treatment: No - Surgical History Surgery Procedure, Year, and Place: None - Immunization History Date of Tetanus Vaccine: UTD Date of Influenza Vaccine: Unk Infectious Disease History: No Infectious Disease History: Reports: Hx of Known/Suspected MRSA, 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 - Social History Occupation: Disabled Lives: Alone Alcohol Use: Occasionally Hx Substance Use: Yes Substance Use Type: Reports: None Substance Use Comment - Amount & Last Used: hx of such Hx Tobacco Use: Yes Smoking Status (MU): Heavy Every Day Tobacco Smoker Type: Cigarettes Amount Used/How Often: 1 pack per day Length of Time of Smoking/Using Tobacco: 3 years Have You Smoked in the Last Year: Yes - Patient has smoked within the last 30 days Review of Systems Constitutional: Negative Cardiovascular: Negative Respiratory: Negative Negative: Vomiting Neurological: Other - funny feeling in her leg," "cant sit still," lethargic Positive: Depressed All Other Systems Reviewed And Are Negative: Yes Physical Exam Triage Information Reviewed: Yes Vital Signs On Initial Exam: Initial Vitals Temp Pulse Resp BP Pulse Ox 98.0 F 101 20 137/115 94 07/27/17 13:57 07/27/17 13:57 07/27/17 13:57 07/27/17 13:57 07/27/17 13:57 Vital Signs Reviewed: Yes Appearance: Positive: Well-Appearing - Awake, No Pain Distress, Well-Nourished Skin: Positive: Warm, Skin Color Reflects Adequate Perfusion, Other - Multiple tattoos and scars from cutting on bilateral arms Head/Face: Positive: Normal Head/Face Inspection Eyes: Positive: Conjunctiva Clear, Other: - Pupils are 3 mm and reactive and equal to light ENT: Positive: Normal ENT inspection Neck: Positive: Supple Respiratory/Lung Sounds: Positive: Clear to Auscultation, Breath Sounds Present - Normal, Other - No respiratory distress Cardiovascular: Positive: RRR, Pulses are Symmetrical in both Upper and Lower Extremities. Negative: Murmur Abdomen Description: Positive: Nontender, No Organomegaly, Soft. Negative: Distended, Guarding, McBurney's Point Tenderness, Peritoneal Signs Bowel Sounds: Positive: Present Musculoskeletal: Positive: Strength/ROM Intact Neurological: Positive: Sensory/Motor Intact, Alert, Oriented to Person Place, Time, Slurred Speech, Facial Symmetry Psychiatric: Positive: Depressed - Anant Coma Scale Best Eye Response: 4 - Spontaneous Best Motor Response: 6 - Obeys Commands Best Verbal Response: 5 - Oriented - pt has slightly slurred speech, but is not confused, and words are comprehensible, and pt speaks in full sentences. Coma Scale Total: 15 Diagnostics - Vital Signs Vital Signs Temp Pulse Resp BP Pulse Ox 07/27/17 13:57 98.0 F 101 20 137/115 94 - Laboratory Lab Results: Lab Results 07/27/17 07/27/17 07/27/17 Range/Units 14:50 14:50 14:50 WBC 13.6 H (3.5-10.8) 10^3/ul RBC 4.45 (4.0-5.4) 10^6/ul Hgb 13.0 (12.0-16.0) g/dl Hct 38 (35-47) % MCV 86 (80-97) fL MCH 29 (27-31) pg MCHC 34 (31-36) g/dl RDW 16 H (10.5-15) % Plt Count 377 (150-450) 10^3/ul MPV 8 (7.4-10.4) um3 Neut % (Auto) 61.5 (38-83) % Lymph % (Auto) 20.5 L (25-47) % [place] % (Auto) 7.3 (1-9) % Eos % (Auto) 9.4 H (0-6) % Baso % (Auto) 1.3 (0-2) % Absolute Neuts (auto) 8.3 H (1.5-7.7) 10^3/ul Absolute Lymphs (auto) 2.8 (1.0-4.8) 10^3/ul Absolute Monos (auto) 1.0 H (0-0.8) 10^3/ul Absolute Eos (auto) 1.3 H (0-0.6) 10^3/ul Absolute Basos (auto) 0.2 (0-0.2) 10^3/ul Absolute Nucleated RBC 0 10^3/ul Nucleated RBC % 0 Sodium 138 (133-145) mmol/L Potassium 3.9 (3.5-5.0) mmol/L Chloride 105 (101-111) mmol/L Carbon Dioxide 27 (22-32) mmol/L Anion Gap 6 (2-11) mmol/L BUN 17 (6-24) mg/dL Creatinine 0.84 (0.51-0.95) mg/dL Est GFR ( Amer) 103.8 (>60) Est GFR (Non-Af Amer) 80.7 (>60) BUN/Creatinine Ratio 20.2 H (8-20) Glucose 93 (70-100) mg/dL Lactic Acid 0.6 (0.5-2.0) mmol/L Calcium 9.6 (8.6-10.3) mg/dL Total Bilirubin 0.40 (0.2-1.0) mg/dL AST 21 (13-39) U/L ALT 32 (7-52) U/L Alkaline Phosphatase 79 (34-104) U/L Total Creatine Kinase 91 (10-223) U/L Troponin I 0.00 (<0.04) ng/mL Total Protein 7.9 (6.4-8.9) g/dL Albumin 4.3 (3.2-5.2) g/dL Globulin 3.6 (2-4) g/dL Albumin/Globulin Ratio 1.2 (1-3) TSH 0.91 (0.34-5.60) mcIU/mL Beta HCG, Quant < 0.60 mIU/mL Salicylates < 2.50 (<30) mg/dL Acetaminophen < 15 mcg/mL Erhard < 0.10 L (0.6-1.2) mmol/L Serum Alcohol < 10 (<10) mg/dL Result Diagrams: 07/27/17 14:50 07/27/17 14:50 Lab Statement: Any lab studies that have been ordered have been reviewed, and results considered in the medical decision making process. - EKG 14:50 Cardiac Rate: NL EKG Rhythm: Sinus Rhythm - [address] Segment: Non-Specific EKG Interpretation: Normal AV/IV conduction time. Normal QTC (424). Normal axis EKG Comparison: No Significant Change - 07/20/17 Re-Evaluation - Re-Evaluation First Eval Re-Evaluation Time: 16:00 Change: Unchanged Comment: Patient refuses to drink charcoal. Second Eval Re-Evaluation Time: 23:00 - pt is sleeping, rouses easily. Awaiting MHE. Change: Improved Course/Dx - Course Course Of Treatment: Allergies noted. High blood pressure noted. Pt medications reviewed this visit. An EKG reveals normal sinus rhythm at 86 BPM, normal AV/ IV conduction time, normal QTC (424), normal axis, non-specific ST wave. EKG had no significant changes compared to 07/20/17. Test results with no significant abnormalities. We consulted poison control who recommended that patient be given 1 gram per kilogram Charcoal. They also recommended observing patient for six hours and then administering a psychiatric evaluation. In the ED course the patient was given Charcoal. Patient is awaiting mental health evaluation and will be signed out to attending physician at shift change. - Differential Dx/Clinical Impression Differential Diagnosis/HQI/PQRI: Positive: Bipolar Disorder, Depression, Drug Overdose/Intentional, Suicide Attempt Provider Diagnosis: Suicidal overdose - Physician Notifications Discussed Care Of Patient With: Poison control Time Discussed With Above Provider: 15:00 Instructed by Provider To: Other - Poison control recommended that patient be given 1 gram per kilogram Charcoal. At 16:00, they recommended observing patient for six hours and then administering a psychiatric evaluation. Discharge - Discharge Plan Condition: Stable Disposition: OTHER Discharge Disposition Comment: care to Dr. Costa [id number] on 07/27/17 pending MHE. Referrals: No Primary Care Phys,NOPCP [Primary Care Provider] - The documentation as recorded by the Arpit haskins Tiffany accurately reflects the service I personally performed and the decisions made by me, Sierra Mcfadden MD.
--- NOTE | 2017-07-28 06:05 | ED ---
I, Jaclyn Brown, yovanied for Rodrigo Costa on 07/28/17 at 0604 . Progress - Progress Note Progress Note: Pt was signed out from Dr. Mcfadden to Dr. Costa. Pt has shown minimal progress. Will be a sign out to ED physician on next shift. - Consult/PCP Time Called: 03:00 Re-Evaluation - Re-Evaluation First Eval Re-Evaluation Time: 16:00 Change: Unchanged Comment: Patient refuses to drink charcoal. Second Eval Re-Evaluation Time: 23:00 - pt is sleeping, rouses easily. Awaiting MHE. Change: Improved Course/Dx - Course Course Of Treatment: Allergies noted. High blood pressure noted. Pt medications reviewed this visit. An EKG reveals normal sinus rhythm at 86 BPM, normal AV/ IV conduction time, normal QTC (424), normal axis, non-specific ST wave. EKG had no significant changes compared to 07/20/17. Test results with no significant abnormalities. We consulted poison control who recommended that patient be given 1 gram per kilogram Charcoal. They also recommended observing patient for six hours and then administering a psychiatric evaluation. In the ED course the patient was given Charcoal. Patient is awaiting mental health evaluation and will be signed out to attending physician at shift change. - Diagnoses Provider Diagnoses: Suicidal overdose - Provider Notifications Time Discussed With Above Provider: 15:00 Instructed by Provider To: Other - Poison control recommended that patient be given 1 gram per kilogram Charcoal. At 16:00, they recommended observing patient for six hours and then administering a psychiatric evaluation. The documentation as recorded by the Kevin haskins Stephanie accurately reflects the service I personally performed and the decisions made by , Rodrigo Costa.
[2017-07-28 07:52] LABS: Urine Bacteria Absent (Absent); Urine Bilirubin Negative (Negative); Urine Glucose Negative (Negative); Urine Nitrite Negative (Negative)
[2017-07-28 07:59] LABS: Benzodiazepine Urine Screen Presumptive Positive (None Detect)
[2017-07-28] MEDS ORDERED: Nicotine GUM* 2 MG PO PRN (08:27)
[2017-07-28] MEDS ORDERED: Nicotine GUM* 2 MG ONE (08:32)
[2017-07-28 10:34] VITALS: BP 134/87
== END 2017-07-28 10:34 ==
LOC: ED 13:46
DX: T42.4X2A Poisoning by benzodiazepines, intentional self-harm, initial encounter (principal); R53.83 Other fatigue; Y92.9 Unspecified place or not applicable; R73.03 Prediabetes; F90.9 Attention-deficit hyperactivity disorder, unspecified type; F41.9 Anxiety disorder, unspecified; F32.9 Major depressive disorder, single episode, unspecified; Z32.02 Encounter for pregnancy test, result negative; Z91.040 Latex allergy status; Z88.0 Allergy status to penicillin; Z91.048 Other nonmedicinal substance allergy status; F17.210 Nicotine dependence, cigarettes, uncomplicated
CPT/HCPCS: 36415; 71010; 80053; 80178; 80307; 80320; 80329; 81003; 81015; 82550; 83605; 84443; 84484; 84702; 85025; 87086; 93005; 99285; A9270-GY; G0480

== ENCOUNTER → 2017-08-07 09:52 | Emergency (ER) | payer MEDICAID, OTHER ==
[~2017-08-07 09:52] MED LIST changes: +Haloperidol Decanoate* 50 MG/ML AMP IM SCH; +LORazepam TAB(*) 1 MG PO ONE; -Mouth Piece, Nicotine* 1 EACH CARTRIDGE INH PRN; -Mouth Piece, Nicotine* 1 EACH CARTRIDGE ONE; -Nicotine GUM* 2 MG PO ONE; -Nicotine Inhaler* 10 MG AMP INH ONE; -Sulfamethox/Trimethoprim DS 800/160* TAB PO ONE; -diPHENhydraMINE IV* 50 MG/ML 1 ml VIAL (BENADRYL) IM ONE
[2017-08-07 10:18] VITALS: BP 116/73
[2017-08-07 10:22] LABS: ABS Basophils 0.2 10^3/ul (0-0.2); ABS Eosinophils 0.2 10^3/ul (0-0.6); ABS Lymphocytes 2.8 10^3/ul (1.0-4.8); ABS Monocytes 0.5 10^3/ul (0-0.8); ABS Neutrophils 5.3 10^3/ul (1.5-7.7); ABS Nucleated RBC 0 10^3/ul; Eosinophil % 2.5 % (0-6); Hematocrit 41 % (35-47); Hemoglobin 13.9 g/dl (12.0-16.0); Mean Corpuscular HGB Conc 34 g/dl (31-36); Mean Corpuscular Hemoglobin 29 pg (27-31); Mean Corpuscular Volume 85 fL (80-97); Mean Platelet Volume 8 um3 (7.4-10.4); Nucleated Red Blood Cells % 0; Platelet Count 343 10^3/ul (150-450); Red Blood Count 4.79 10^6/ul (4.0-5.4); Red Cell Distribution Width 15 % (10.5-15); White Blood Count 8.9 10^3/ul (3.5-10.8)
[2017-08-07 10:26] LABS: Urine Appearance Cloudy; Urine Blood 1+ (Negative); Urine Color Straw; Urine Ketones Negative (Negative); Urine Protein Negative (Negative); Urine Specific Gravity 1.006 (1.010-1.030); Urine Urobilinogen Negative (Negative)
--- NOTE | 2017-08-07 16:23 | ED ---
Psychiatric Complaint - HPI Summary HPI Summary: Patient presents to the ED with increase of depression and anxiety with cutting behaviors to the left forearm. Denies drug use or ETOH. States would like to go to a state hospital and is tearful and upset that Dr. Harp continues to not send her there. She denies any and all physical symptoms. She requests sabra to her forearm, but RN states there is risk for her eating them and provider bandaged and wrapped to her dismay. Denies SOB, chest discomfort, N/V/C /D. Denies fevers, sweats or chills. - History Of Current Complaint Chief Complaint: [facility] Time Seen by Provider: 08/07/17 09:57 Hx Obtained From: Patient Hx Last Menstrual Period: IUD ?: No Onset/Duration: Sudden Onset Timing: Constant Severity Initially: Mild Severity Currently: Mild Character: Depressed, Anxious, Frustrated Aggravating Factor(s): Recent Stress Alleviating Factor(s): Nothing Associated Signs And Symptoms: Positive: Negative Related History: Positive For: Prior Psychiatric Issues - Allergies/Home Medications Allergies/Adverse Reactions: Allergies Allergy/AdvReac Type Severity Reaction Status Date / Time Penicillin V Allergy Severe Hives Verified 07/07/17 16:17 Latex Allergy Intermediate Rash Verified 07/07/17 16:17 Lactose Intolerance (GI) Allergy Diarrhea Verified 07/07/17 16:17 glue Allergy Rash Uncoded 07/07/17 16:17 steri strips Allergy Rash Uncoded 07/07/17 16:17 PMH/Surg Hx/FS Hx/Imm Hx Previously Healthy: Yes Endocrine/Hematology History: Reports: Hx Unexplained Bleeding Denies: Hx Anticoagulant Therapy, Hx Blood Disorders, Hx Thyroid Disease, Other Endocrine/Hematological Disorders - borderline diabetic Comment Only: Hx Diabetes - Borderline Cardiovascular History: Denies: Hx Hypertension, Hx Pacemaker/ICD, Other Cardiovascular Problems/ Disorders Respiratory History: Denies: Hx Asthma - patient denied, Hx Chronic Bronchitis, Hx Chronic Obstructive Pulmonary Disease (COPD), Hx Cystic Fibrosis, Hx Lung Cancer, Hx Pleural Effusion, Hx Pneumonia, Hx Pulmonary Edema, Hx Pulmonary Embolism, Hx Seasonal Allergies, Hx Sleep Apnea, Other Respiratory Problems/Disorders GI History: Denies: Hx Ulcer, Other GI Disorders History: Reports: Other Problems/Disorders - Urinary Retention Denies: Hx Renal Disease Musculoskeletal History: Denies: Other Musculoskeletal History Sensory History: Reports: Hx Contacts or Glasses - Has glasses with her Denies: Hx Cataracts, Hx Eye Injury, Hx Eye Prosthesis, Hx Glaucoma, Hx Legally Blind, Hx Macular Degeneration, Hx Deafness, Hx Hearing Aid, Hx Hearing Problem, Other Sensory Impairments Opthamlomology History: Reports: Hx Contacts or Glasses - Has glasses with her Denies: Hx Cataracts, Hx Eye Injury, Hx Eye Prosthesis, Hx Glaucoma, Hx Legally Blind, Hx Macular Degeneration, Other Sensory Impairments Neurological History: Reports: Hx Developmental Delay, Hx Headaches, Hx Seizures Denies: Hx Dementia, Hx Migraine, Hx Nerve Disease, Hx Spinal Cord Injury, Hx Transient Ischemic Attacks (TIA), Other Neuro Impairments/Disorders Psychiatric History: Reports: Hx Anxiety, Hx Attention Deficit Hyperactivity Disorder, Hx Depression, Hx Panic Disorder, Hx Post Traumatic Stress Disorder, Hx Inpatient Treatment - multiple, Hx Community Mental Health Tx - [facility], Hx Bipolar Disorder, Hx Suicide Attempt - multiple, Hx of Violent Episodes Against Others, Hx Substance Abuse - OD on ativan, ambien, valium, Other Psychiatric Issues/Disorders - Mood Disorder, Borderline Denies: Hx Eating Disorder Comment Only: Hx Schizophrenia - Schizoaffective Disorder - Cancer History Hx Chemotherapy: No Hx Radiation Therapy: No Hx Palliative Cancer Treatment: No - Surgical History Surgery Procedure, Year, and Place: None - Immunization History Date of Tetanus Vaccine: UTD Date of Influenza Vaccine: Unk Hx Pertussis Vaccination: No Immunizations Up to Date: Yes Infectious Disease History: No Infectious Disease History: Reports: Hx of Known/Suspected MRSA, 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 - Social History Occupation: Unemployed Lives: With Family Alcohol Use: Occasionally Alcohol Amount: "drank beer awhile ago" Hx Substance Use: Yes Substance Use Type: Reports: None Substance Use Comment - Amount & Last Used: hx of such Hx Tobacco Use: Yes Smoking Status (MU): Heavy Every Day Tobacco Smoker Type: Cigarettes Amount Used/How Often: 1 pack per day Length of Time of Smoking/Using Tobacco: 3 years Have You Smoked in the Last Year: Yes - Patient has smoked within the last 30 days Review of Systems Constitutional: Negative Negative: Fever, Chills, Fatigue, Skin Diaphoresis Eyes: Negative Cardiovascular: Negative Respiratory: Negative Genitourinary: Negative Positive: no symptoms reported, see HPI Positive: Other - lacerations to the left forearm Neurological: Negative Positive: Anxious, Depressed All Other Systems Reviewed And Are Negative: Yes Physical Exam Triage Information Reviewed: Yes Vital Signs On Initial Exam: Initial Vitals Temp Pulse Resp BP Pulse Ox 98 F 94 17 116/73 99 08/07/17 10:13 08/07/17 10:13 08/07/17 10:13 08/07/17 10:13 08/07/17 10:13 Vital Signs Reviewed: Yes Appearance: Positive: Well-Appearing, Obese, Signs of Trauma Skin: Positive: Skin Color Reflects Adequate Perfusion Head/Face: Positive: Normal Head/Face Inspection Eyes: Positive: EOMI, [place]SANA, Conjunctiva Clear Neck: Positive: Supple, No Lymphadenopathy Respiratory/Lung Sounds: Positive: Clear to Auscultation, Breath Sounds Present Cardiovascular: Positive: RRR, Pulses are Symmetrical in both Upper and Lower Extremities Musculoskeletal: Positive: Normal, Strength/ROM Intact Neurological: Positive: Speech Normal Psychiatric: Positive: Anxious, Depressed AVPU Assessment: Alert - [place] Coma Scale Coma Scale Total: 15 Diagnostics - Vital Signs Vital Signs Temp Pulse Resp BP Pulse Ox 08/07/17 10:13 98 F 94 17 116/73 99 - Laboratory Lab Results: Lab Results 08/07/17 08/07/17 08/07/17 Range/Units 10:10 10:10 10:10 WBC 8.9 (3.5-10.8) 10^3/ul RBC 4.79 (4.0-5.4) 10^6/ul Hgb 13.9 (12.0-16.0) g/dl Hct 41 (35-47) % MCV 85 (80-97) fL MCH 29 (27-31) pg MCHC 34 (31-36) g/dl RDW 15 (10.5-15) % Plt Count 343 (150-450) 10^3/ul MPV 8 (7.4-10.4) um3 Neut % (Auto) 59.4 (38-83) % Lymph % (Auto) 31.0 (25-47) % [place] % (Auto) 5.4 (1-9) % Eos % (Auto) 2.5 (0-6) % Baso % (Auto) 1.7 (0-2) % Absolute Neuts (auto) 5.3 (1.5-7.7) 10^3/ul Absolute Lymphs (auto) 2.8 (1.0-4.8) 10^3/ul Absolute Monos (auto) 0.5 (0-0.8) 10^3/ul Absolute Eos (auto) 0.2 (0-0.6) 10^3/ul Absolute Basos (auto) 0.2 (0-0.2) 10^3/ul Absolute Nucleated RBC 0 10^3/ul Nucleated RBC % 0 Sodium 136 (133-145) mmol/L Potassium 3.8 (3.5-5.0) mmol/L Chloride 104 (101-111) mmol/L Carbon Dioxide 26 (22-32) mmol/L Anion Gap 6 (2-11) mmol/L BUN 8 (6-24) mg/dL Creatinine 0.79 (0.51-0.95) mg/dL Est GFR ( Amer) 110.7 (>60) Est GFR (Non-Af Amer) 86.0 (>60) BUN/Creatinine Ratio 10.1 (8-20) Glucose 90 (70-100) mg/dL Calcium 9.6 (8.6-10.3) mg/dL Total Bilirubin 0.40 (0.2-1.0) mg/dL AST 14 (13-39) U/L ALT 19 (7-52) U/L Alkaline Phosphatase 74 (34-104) U/L Total Protein 8.2 (6.4-8.9) g/dL Albumin 4.4 (3.2-5.2) g/dL Globulin 3.8 (2-4) g/dL Albumin/Globulin Ratio 1.2 (1-3) TSH 1.34 (0.34-5.60) mcIU/mL Urine Color Urine Appearance Urine pH (5-9) Ur Specific [place] (1.010-1.030) Urine Protein (Negative) Urine Ketones (Negative) Urine Blood (Negative) Urine Nitrate (Negative) Urine Bilirubin (Negative) Urine Urobilinogen (Negative) Ur Leukocyte Esterase (Negative) Urine WBC (Auto) (Absent) Urine RBC (Auto) (Absent) Ur Squamous Epith Cells (Absent) Urine Bacteria (Absent) Urine Glucose (Negative) Salicylates < 2.50 (<30) mg/dL Urine Opiates Screen None detected (None Detect) Acetaminophen < 15 mcg/mL Ur Barbiturates Screen None detected (None Detect) Ur Phencyclidine Scrn None detected (None Detect) Ur Amphetamines Screen None detected (None Detect) U Benzodiazepines Scrn Presumptive positive H (None Detect) Urine Cocaine Screen None detected (None Detect) U Cannabinoids Screen None detected (None Detect) Serum Alcohol < 10 (<10) mg/dL 08/07/17 Range/Units 10:10 WBC (3.5-10.8) 10^3/ul RBC (4.0-5.4) 10^6/ul Hgb (12.0-16.0) g/dl Hct (35-47) % MCV (80-97) fL MCH (27-31) pg MCHC (31-36) g/dl RDW (10.5-15) % Plt Count (150-450) 10^3/ul MPV (7.4-10.4) um3 Neut % (Auto) (38-83) % Lymph % (Auto) (25-47) % [place] % (Auto) (1-9) % Eos % (Auto) (0-6) % Baso % (Auto) (0-2) % Absolute Neuts (auto) (1.5-7.7) 10^3/ul Absolute Lymphs (auto) (1.0-4.8) 10^3/ul Absolute Monos (auto) (0-0.8) 10^3/ul Absolute Eos (auto) (0-0.6) 10^3/ul Absolute Basos (auto) (0-0.2) 10^3/ul Absolute Nucleated RBC 10^3/ul Nucleated RBC % Sodium (133-145) mmol/L Potassium (3.5-5.0) mmol/L Chloride (101-111) mmol/L Carbon Dioxide (22-32) mmol/L Anion Gap (2-11) mmol/L BUN (6-24) mg/dL Creatinine (0.51-0.95) mg/dL Est GFR ( Amer) (>60) Est GFR (Non-Af Amer) (>60) BUN/Creatinine Ratio (8-20) Glucose (70-100) mg/dL Calcium (8.6-10.3) mg/dL Total Bilirubin (0.2-1.0) mg/dL AST (13-39) U/L ALT (7-52) U/L Alkaline Phosphatase (34-104) U/L Total Protein (6.4-8.9) g/dL Albumin (3.2-5.2) g/dL Globulin (2-4) g/dL Albumin/Globulin Ratio (1-3) TSH (0.34-5.60) mcIU/mL Urine Color Straw Urine Appearance Cloudy Urine pH 7.0 (5-9) Ur Specific [place] 1.006 L (1.010-1.030) Urine Protein Negative (Negative) Urine Ketones Negative (Negative) Urine Blood 1+ H (Negative) Urine Nitrate Negative (Negative) Urine Bilirubin Negative (Negative) Urine Urobilinogen Negative (Negative) Ur Leukocyte Esterase Trace H (Negative) Urine WBC (Auto) Trace(0-5/hpf) (Absent) Urine RBC (Auto) Trace(0-2/hpf) (Absent) Ur Squamous Epith Cells Present H (Absent) Urine Bacteria 1+ H (Absent) Urine Glucose Negative (Negative) Salicylates (<30) mg/dL Urine Opiates Screen (None Detect) Acetaminophen mcg/mL Ur Barbiturates Screen (None Detect) Ur Phencyclidine Scrn (None Detect) Ur Amphetamines Screen (None Detect) U Benzodiazepines Scrn (None Detect) Urine Cocaine Screen (None Detect) U Cannabinoids Screen (None Detect) Serum Alcohol (<10) mg/dL Result Diagrams: 08/07/17 10:10 08/07/17 10:10 Lab Statement: Any lab studies that have been ordered have been reviewed, and results considered in the medical decision making process. Course/Dx - Course Course Of Treatment: States would like to go to a [facility] and is tearful and upset that Dr. Harp continues to not send her there. She denies any and all physical symptoms. She requests sabra to her forearm, but RN states there is risk for her eating them and provider bandaged and wrapped to her dismay. Denies SOB, chest discomfort, N/V/C/D. Denies fevers, sweats or chills. Labs WNL and she is cleared for MHU. Dr. coon advised she to be discharged home. She is given 2 ativan during her course in the ED. - Differential Dx/Clinical Impression Provider Diagnosis: Depression, Anxiety Discharge - Discharge Plan Condition: Stable Disposition: HOME Referrals: No Primary Care Phys,NOPCP [Primary Care Provider] -
== END | disposition home or self-care (01) ==
LOC: ED 09:52
DX: F41.9 Anxiety disorder, unspecified (principal); F32.9 Major depressive disorder, single episode, unspecified; F17.210 Nicotine dependence, cigarettes, uncomplicated
CPT/HCPCS: 36415; 80053; 80307; 80320; 80329; 81003; 81015; 84443; 85025; 87086; 99282; G0480; J1631

== ENCOUNTER 2017-08-11 05:05 | Emergency (ER) | payer OTHER ==
[2017-08-11 05:52] LABS: ABS Basophils 0.2 10^3/ul (0-0.2); ABS Eosinophils 0.1 10^3/ul (0-0.6); ABS Lymphocytes 2.9 10^3/ul (1.0-4.8); ABS Monocytes 0.7 10^3/ul (0-0.8); ABS Neutrophils 9.4 10^3/ul (1.5-7.7); ABS Nucleated RBC 0.01 10^3/ul; Eosinophil % 1.1 % (0-6); Hematocrit 37 % (35-47); Hemoglobin 12.9 g/dl (12.0-16.0); Lymphocyte % 21.5 % (25-47); Mean Corpuscular HGB Conc 35 g/dl (31-36); Mean Corpuscular Hemoglobin 29 pg (27-31); Mean Corpuscular Volume 84 fL (80-97); Mean Platelet Volume 8 um3 (7.4-10.4); Nucleated Red Blood Cells % 0.1; Platelet Count 342 10^3/ul (150-450); Red Blood Count 4.42 10^6/ul (4.0-5.4); Red Cell Distribution Width 15 % (10.5-15); White Blood Count 13.2 10^3/ul (3.5-10.8)
[2017-08-11] MEDS ORDERED: Ondansetron ODT TAB* 4 MG PO ONE (06:58)
[2017-08-11] MEDS ORDERED: Diazepam TAB(*) 5 MG PO ONE (06:58)
[2017-08-11] MEDS ORDERED: Nicotine GUM* 2 MG PO PRN (06:58)
[2017-08-11] MEDS ORDERED: Nicotine GUM* 2 MG ONE (07:04)
[2017-08-11 07:25] LABS: Urine Appearance Cloudy; Urine Blood 2+ (Negative); Urine Color Yellow; Urine Ketones Negative (Negative); Urine Protein Negative (Negative); Urine Urobilinogen Negative (Negative)
[2017-08-11 09:20] VITALS: BP 142/84
--- NOTE | 2017-08-11 10:17 | ED ---
I, Theresa Jorgensen, scribed for Eduardo Lee MD on 08/11/17 at 0753 . Progress - Progress Note Progress Note: Ms. Pérez was made a [phone] in the field for being uncooperative after cutting herself superficially. She is angry and upset about being here and not very cooperative although she becomes quite pleasant when she gets her own way. She has been using drugs and not sleeping and says that that is why she ended up here. She wants to go home and sleep and I think she is safe to do so. She is always volatile and may end up cutting herself some more. Course/Dx - Diagnoses Provider Diagnoses: Depression, Suicidal ideations, Substance abuse The documentation as recorded by the gaibJameel lewis Natalie accurately reflects the service I personally performed and the decisions made by me, Eduardo Lee MD.
--- NOTE | 2017-08-12 04:44 | ED ---
Jarrell Lofton Gabriel, scribed for Rodrigo Costa on 08/11/17 at 0523 . Psychiatric Complaint - HPI Summary HPI Summary: This patient is a 27 year old F BIBA to [facility]. Pt has been having hallucinations x 3 days, has been smoking crack from 1700 yesterday till 0330 this morning to stay awake, because "they are out to get me" per EMS. Pt has recently cut herself with a razor blade. Per triage note. Currently the patient is refusing to speak and will only nod yes and no. She nods yes to feeling depressed having SI and cutting herself today - History Of Current Complaint Chief Complaint: EDMentalHealth Time Seen by Provider: 08/11/17 05:09 Hx Obtained From: Patient Hx Last Menstrual Period: IUD Onset/Duration: Still Present Timing: Constant Severity Initially: Moderate Severity Currently: Moderate Character: Angry Related History: Positive For: Prior Psychiatric Issues Has Suicidal: Reports: Demonstrates Gesture - Allergies/Home Medications Allergies/Adverse Reactions: Allergies Allergy/AdvReac Type Severity Reaction Status Date / Time Penicillin V Allergy Severe Hives Verified 07/07/17 16:17 Latex Allergy Intermediate Rash Verified 07/07/17 16:17 Lactose Intolerance (GI) Allergy Diarrhea Verified 07/07/17 16:17 glue Allergy Rash Uncoded 07/07/17 16:17 steri strips Allergy Rash Uncoded 07/07/17 16:17 PMH/Surg Hx/FS Hx/Imm Hx Endocrine/Hematology History: Reports: Hx Unexplained Bleeding Denies: Hx Anticoagulant Therapy, Hx Blood Disorders, Hx Thyroid Disease, Hx Anemia, Autoimmune Disease, Other Endocrine/Hematological Disorders - borderline diabetic Comment Only: Hx Diabetes - Borderline Cardiovascular History: Denies: Hx Angioplasty, Hx Cardiac Arrest, Hx Cardiomegaly, Hx Congestive Heart Failure, Hx Coronary Artery Disease, Hx Deep Vein Thrombosis, Hx Embolism , Hx Hypercholesterolemia, Hx Hypertension, Hx Myocardial Infarction, Hx Pacemaker/ICD, Hx Peripheral Vascular Disease, Hx Rheumatic Fever, Hx Syncope, Hx Valvular Heart Disease, Hx Supraventricular Ventricular Tachycardia, Other Cardiovascular Problems/Disorders Respiratory History: Denies: Hx Asthma - patient denied, Hx Chronic Bronchitis, Hx Chronic Obstructive Pulmonary Disease (COPD), Hx Cystic Fibrosis, Hx Lung Cancer, Hx Pleural Effusion, Hx Pneumonia, Hx Pulmonary Edema, Hx Pulmonary Embolism, Hx Seasonal Allergies, Hx Sleep Apnea, Other Respiratory Problems/Disorders GI History: Denies: Hx Cirrhosis, Hx Crohn's Disease, Hx Diverticulosis, Hx Gall Bladder Disease, Hx Gastroesophageal Reflux Disease, Hx Gastrointestinal Bleed, Hx Hiatal Hernia, Hx Irritable Bowel, Hx Jaundice, Hx Obstructive Bowel, Hx Ileostomy, Hx Pyloric Stenosis, Hx Ulcer, Other GI Disorders History: Reports: Other Problems/Disorders - Urinary Retention Denies: Hx Acute Renal Failure, Hx Benign Prostatic Hyperplasia, Hx Chronic Renal Failure, Hx Dialysis, Hx Kidney Infection, Hx Kidney Stones, Hx Renal Disease Musculoskeletal History: Denies: Hx Rheumatoid Arthritis, Hx Back Problems, Hx Bursitis, Hx Fibromyalgia, Hx Gout, Hx Tendonitis, Hx Joint Replacement, Other Musculoskeletal History Sensory History: Reports: Hx Contacts or Glasses - Has glasses with her, Hx Vision Problem Denies: Hx Cataracts, Hx Eye Injury, Hx Eye Prosthesis, Hx Glaucoma, Hx Legally Blind, Hx Macular Degeneration, Hx Deafness, Hx Hearing Aid, Other Sensory Impairments Opthamlomology History: Reports: Hx Contacts or Glasses - Has glasses with her, Hx Vision Problem Denies: Hx Cataracts, Hx Eye Injury, Hx Eye Prosthesis, Hx Glaucoma, Hx Legally Blind, Hx Macular Degeneration, Other Sensory Impairments EENT History: Denies: Hx Deafness, Hx Hearing Aid, Hx Seasonal Allergies, Hx Tonsillitis Neurological History: Reports: Hx Developmental Delay, Hx Headaches, Hx Seizures Denies: Hx CVA, Hx Dementia, Hx Migraine, Hx Nerve Disease, Hx Peripheral Neuropathy, Hx Spinal Cord Injury, Hx Transient Ischemic Attacks (TIA), Hx CVP, Other Neuro Impairments/Disorders Psychiatric History: Reports: Hx Anxiety, Hx Attention Deficit Hyperactivity Disorder, Hx Depression, Hx Panic Disorder, Hx Post Traumatic Stress Disorder, Hx Inpatient Treatment - multiple, Hx Community Mental Health Tx - [facility], Hx Bipolar Disorder, Hx Suicide Attempt - multiple, Hx of Violent Episodes Against Others, Hx Substance Abuse - OD on ativan, ambien, valium, Other Psychiatric Issues/Disorders - Mood Disorder, Borderline Denies: Hx Eating Disorder Comment Only: Hx Schizophrenia - Schizoaffective Disorder - Cancer History Hx Chemotherapy: No Hx Radiation Therapy: No Hx Palliative Cancer Treatment: No - Surgical History Surgery Procedure, Year, and Place: None - Immunization History Date of Tetanus Vaccine: UTD Date of Influenza Vaccine: Unk Infectious Disease History: Unable to Obtain/Confirm Infectious Disease History: Reports: Hx of Known/Suspected MRSA, 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 - Social History Alcohol Use: Occasionally Alcohol Amount: "drank beer awhile ago" Hx Substance Use: Yes Substance Use Type: Reports: None Substance Use Comment - Amount & Last Used: hx of such Hx Tobacco Use: Yes Smoking Status (MU): Heavy Every Day Tobacco Smoker Type: Cigarettes Amount Used/How Often: 1 pack per day Length of Time of Smoking/Using Tobacco: 3 years Have You Smoked in the Last Year: Yes - Patient has smoked within the last 30 days Review of Systems Negative: Fever Positive: Other - SI All Other Systems Reviewed And Are Negative: Yes Physical Exam - Summary Physical Exam Summary: Appearance: Well appearing, no pain distress Skin: multiple superficial lacerations on the left forearm. Head/face: normal Eyes: EOMI, [place] ENT: normal Neck: supple, non-tender Respiratory: CTA, breath sounds present Cardiovascular: RRR, pulses symmetrical Abdomen: non-tender, soft Bowel: present Musculoskeletal: normal, strength/ROM intact Neuro: normal, sensory motor intact, A&Ox3 Triage Information Reviewed: Yes Vital Signs On Initial Exam: Initial Vitals Temp Pulse Resp BP Pulse Ox 98.8 F 88 16 132/88 97 08/11/17 05:12 08/11/17 05:12 08/11/17 05:12 08/11/17 05:12 08/11/17 05:12 Vital Signs Reviewed: Yes Diagnostics - Vital Signs Vital Signs Temp Pulse Resp BP Pulse Ox 08/11/17 05:12 98.8 F 88 16 132/88 97 - Laboratory Lab Results: Lab Results 08/11/17 08/11/17 08/11/17 Range/Units 05:39 05:39 06:51 WBC 13.2 H (3.5-10.8) 10^3/ul RBC 4.42 (4.0-5.4) 10^6/ul Hgb 12.9 (12.0-16.0) g/dl Hct 37 (35-47) % MCV 84 (80-97) fL MCH 29 (27-31) pg MCHC 35 (31-36) g/dl RDW 15 (10.5-15) % Plt Count 342 (150-450) 10^3/ul MPV 8 (7.4-10.4) um3 Neut % (Auto) 70.9 (38-83) % Lymph % (Auto) 21.5 L (25-47) % [place] % (Auto) 5.1 (1-9) % Eos % (Auto) 1.1 (0-6) % Baso % (Auto) 1.4 (0-2) % Absolute Neuts (auto) 9.4 H (1.5-7.7) 10^3/ul Absolute Lymphs (auto) 2.9 (1.0-4.8) 10^3/ul Absolute Monos (auto) 0.7 (0-0.8) 10^3/ul Absolute Eos (auto) 0.1 (0-0.6) 10^3/ul Absolute Basos (auto) 0.2 (0-0.2) 10^3/ul Absolute Nucleated RBC 0.01 10^3/ul Nucleated RBC % 0.1 Sodium 136 (133-145) mmol/L Potassium 3.8 (3.5-5.0) mmol/L Chloride 104 (101-111) mmol/L Carbon Dioxide 23 (22-32) mmol/L Anion Gap 9 (2-11) mmol/L BUN 9 (6-24) mg/dL Creatinine 0.90 (0.51-0.95) mg/dL Est GFR ( Amer) 95.2 (>60) Est GFR (Non-Af Amer) 74.0 (>60) BUN/Creatinine Ratio 10.0 (8-20) Glucose 97 (70-100) mg/dL Calcium 9.7 (8.6-10.3) mg/dL Total Bilirubin 0.50 (0.2-1.0) mg/dL AST 13 (13-39) U/L ALT 15 (7-52) U/L Alkaline Phosphatase 68 (34-104) U/L Total Protein 7.9 (6.4-8.9) g/dL Albumin 4.4 (3.2-5.2) g/dL Globulin 3.5 (2-4) g/dL Albumin/Globulin Ratio 1.3 (1-3) TSH 0.08 L (0.34-5.60) mcIU/mL Beta HCG, Quant < 0.60 mIU/mL Urine Color Urine Appearance Urine pH (5-9) Ur Specific [place] (1.010-1.030) Urine Protein (Negative) Urine Ketones (Negative) Urine Blood (Negative) Urine Nitrate (Negative) Urine Bilirubin (Negative) Urine Urobilinogen (Negative) Ur Leukocyte Esterase (Negative) Urine WBC (Auto) (Absent) Urine RBC (Auto) (Absent) Ur Squamous Epith Cells (Absent) Urine Bacteria (Absent) Urine Glucose (Negative) Salicylates < 2.50 (<30) mg/dL Urine Opiates Screen None detected (None Detect) Acetaminophen < 15 mcg/mL Ur Barbiturates Screen None detected (None Detect) Ur Phencyclidine Scrn None detected (None Detect) Ur Amphetamines Screen None detected (None Detect) U Benzodiazepines Scrn Presumptive positive H (None Detect) Urine Cocaine Screen Presumptive positive H (None Detect) U Cannabinoids Screen Presumptive positive H (None Detect) Serum Alcohol < 10 (<10) mg/dL 08/11/17 Range/Units 06:51 WBC (3.5-10.8) 10^3/ul RBC (4.0-5.4) 10^6/ul Hgb (12.0-16.0) g/dl Hct (35-47) % MCV (80-97) fL MCH (27-31) pg MCHC (31-36) g/dl RDW (10.5-15) % Plt Count (150-450) 10^3/ul MPV (7.4-10.4) um3 Neut % (Auto) (38-83) % Lymph % (Auto) (25-47) % [place] % (Auto) (1-9) % Eos % (Auto) (0-6) % Baso % (Auto) (0-2) % Absolute Neuts (auto) (1.5-7.7) 10^3/ul Absolute Lymphs (auto) (1.0-4.8) 10^3/ul Absolute Monos (auto) (0-0.8) 10^3/ul Absolute Eos (auto) (0-0.6) 10^3/ul Absolute Basos (auto) (0-0.2) 10^3/ul Absolute Nucleated RBC 10^3/ul Nucleated RBC % Sodium (133-145) mmol/L Potassium (3.5-5.0) mmol/L Chloride (101-111) mmol/L Carbon Dioxide (22-32) mmol/L Anion Gap (2-11) mmol/L BUN (6-24) mg/dL Creatinine (0.51-0.95) mg/dL Est GFR ( Amer) (>60) Est GFR (Non-Af Amer) (>60) BUN/Creatinine Ratio (8-20) Glucose (70-100) mg/dL Calcium (8.6-10.3) mg/dL Total Bilirubin (0.2-1.0) mg/dL AST (13-39) U/L ALT (7-52) U/L Alkaline Phosphatase (34-104) U/L Total Protein (6.4-8.9) g/dL Albumin (3.2-5.2) g/dL Globulin (2-4) g/dL Albumin/Globulin Ratio (1-3) TSH (0.34-5.60) mcIU/mL Beta HCG, Quant mIU/mL Urine Color Yellow Urine Appearance Cloudy Urine pH 6.0 (5-9) Ur Specific [place] 1.010 (1.010-1.030) Urine Protein Negative (Negative) Urine Ketones Negative (Negative) Urine Blood 2+ H (Negative) Urine Nitrate Negative (Negative) Urine Bilirubin Negative (Negative) Urine Urobilinogen Negative (Negative) Ur Leukocyte Esterase 3+ H (Negative) Urine WBC (Auto) 3+(>20/hpf) H (Absent) Urine RBC (Auto) 2+(6-10/hpf) H (Absent) Ur Squamous Epith Cells Present H (Absent) Urine Bacteria Absent (Absent) Urine Glucose Negative (Negative) Salicylates (<30) mg/dL Urine Opiates Screen (None Detect) Acetaminophen mcg/mL Ur Barbiturates Screen (None Detect) Ur Phencyclidine Scrn (None Detect) Ur Amphetamines Screen (None Detect) U Benzodiazepines Scrn (None Detect) Urine Cocaine Screen (None Detect) U Cannabinoids Screen (None Detect) Serum Alcohol (<10) mg/dL Result Diagrams: 08/11/17 05:39 08/11/17 05:39 Lab Statement: Any lab studies that have been ordered have been reviewed, and results considered in the medical decision making process. Course/Dx - Differential Dx/Clinical Impression Provider Diagnosis: Depression, Suicidal ideations, Substance abuse Discharge - Discharge Plan Condition: Stable Disposition: OTHER Discharge Disposition Comment: Patient is signed out to Dr. Lee, pending disposition, awaiting MHE Patient Education Materials: Medical Clearance for Substance Abuse Treatment ( ED) Referrals: No Primary Care Phys,NOPCP [Primary Care Provider] - Additional Instructions: Return to the emergency department immediately if you feel like you are going to hurt yourself. The documentation as recorded by the Jarrell haskins Gabriel accurately reflects the service I personally performed and the decisions made by me, Rodrigo Costa.
== END 2017-08-11 07:55 ==
LOC: ED 05:05
DX: F32.9 Major depressive disorder, single episode, unspecified (principal); R45.851 Suicidal ideations; R44.3 Hallucinations, unspecified; F19.10 Other psychoactive substance abuse, uncomplicated; F17.210 Nicotine dependence, cigarettes, uncomplicated
CPT/HCPCS: 36415; 80053; 80307; 80320; 80329; 81003; 81015; 84443; 84702; 85025; 87086; 99285; A9270-GY; G0480

== ENCOUNTER 2017-08-30 12:07 | Emergency (ER) | payer MEDICAID, OTHER ==
[2017-08-30] MEDS ORDERED: LORazepam TAB(*) 1 MG PO ONE ×2 (13:01→17:21)
[2017-08-30] MEDS ORDERED: diPHENhydraMINE PO* 50 MG PO ONE ×2 (13:01→17:21)
[2017-08-30] MEDS ORDERED: Haloperidol TAB* 5 MG PO ONE ×2 (13:01→17:21)
--- NOTE | 2017-08-30 13:12 | PN ---
Progress Note - Progress Note Date of Service: 08/30/17 Note: laceration repair by Jess BRYANT 3cm by 1/2cm laceration of left side of neck cleaned area with 50cc of saline Placed 3 sabra
[2017-08-30 17:07] LABS: ABS Basophils 0.1 10^3/ul (0-0.2); ABS Eosinophils 0.2 10^3/ul (0-0.6); ABS Lymphocytes 3.9 10^3/ul (1.0-4.8); ABS Monocytes 0.8 10^3/ul (0-0.8); ABS Neutrophils 7.4 10^3/ul (1.5-7.7); ABS Nucleated RBC 0 10^3/ul; Eosinophil % 1.5 % (0-6); Hematocrit 40 % (35-47); Hemoglobin 13.6 g/dl (12.0-16.0); Lymphocyte % 31.9 % (25-47); Mean Corpuscular HGB Conc 34 g/dl (31-36); Mean Corpuscular Hemoglobin 29 pg (27-31); Mean Corpuscular Volume 85 fL (80-97); Mean Platelet Volume 9 um3 (7.4-10.4); Nucleated Red Blood Cells % 0; Platelet Count 347 10^3/ul (150-450); Red Blood Count 4.69 10^6/ul (4.0-5.4); Red Cell Distribution Width 15 % (10.5-15); White Blood Count 12.3 10^3/ul (3.5-10.8)
[2017-08-30 17:20] LABS: EGFR Non-African American 65.6 (>60)
[2017-08-30] MEDS ORDERED: Zolpidem TAB* 10 MG PO PRN (19:33)
[2017-08-30] MEDS ORDERED: Nicotine GUM* 2 MG ONE (19:42)
[2017-08-30] MEDS: Nicotine GUM* 2 MG PO PRN (19:44)
--- NOTE | 2017-08-30 22:36 | ED ---
Stacey Lofton Thomas, scribed for Willam Lyn MD on 08/30/17 at 1316 . Laceration/Wound HPI - HPI Summary HPI Summary: The patient is a 27 year old female presenting to the emergency department with a self-inflicted laceration to the right side of the neck. - History of Current Complaint Stated Complaint: MHE Time Seen by Provider: 08/30/17 12:39 Hx Obtained From: Patient Hx Last Menstrual Period: IUD Onset/Duration: Sudden Onset, Still Present Aggravating: Nothing Alleviating: Nothing Onset Severity: Mild Current Severity: Mild Pain Intensity: 0 Associated Signs & Symptoms: Redness - Additional Pertinent History Primary Care Physician: [id number] - Allergy/Home Medications Allergies/Adverse Reactions: Allergies Allergy/AdvReac Type Severity Reaction Status Date / Time Penicillin V Allergy Severe Hives Verified 07/07/17 16:17 Latex Allergy Intermediate Rash Verified 07/07/17 16:17 Lactose Intolerance (GI) Allergy Diarrhea Verified 07/07/17 16:17 glue Allergy Rash Uncoded 07/07/17 16:17 steri strips Allergy Rash Uncoded 07/07/17 16:17 PMH/Surg Hx/FS Hx/Imm Hx Endocrine/Hematology History: Reports: Hx Unexplained Bleeding Denies: Hx Anticoagulant Therapy, Hx Blood Disorders, Hx Thyroid Disease, Hx Anemia, Other Endocrine/Hematological Disorders - borderline diabetic Comment Only: Hx Diabetes - Borderline Cardiovascular History: Denies: Hx Angioplasty, Hx Cardiac Arrest, Hx Cardiomegaly, Hx Congestive Heart Failure, Hx Coronary Artery Disease, Hx Deep Vein Thrombosis, Hx Embolism , Hx Hypercholesterolemia, Hx Hypertension, Hx Myocardial Infarction, Hx Pacemaker/ICD, Hx Peripheral Vascular Disease, Hx Rheumatic Fever, Hx Syncope, Hx Valvular Heart Disease, Other Cardiovascular Problems/Disorders Respiratory History: Denies: Hx Asthma - patient denied, Hx Chronic Bronchitis, Hx Chronic Obstructive Pulmonary Disease (COPD), Hx Cystic Fibrosis, Hx Lung Cancer, Hx Pleural Effusion, Hx Pneumonia, Hx Pulmonary Edema, Hx Pulmonary Embolism, Hx Seasonal Allergies, Hx Sleep Apnea, Other Respiratory Problems/Disorders GI History: Denies: Hx Cirrhosis, Hx Crohn's Disease, Hx Diverticulosis, Hx Gall Bladder Disease, Hx Gastroesophageal Reflux Disease, Hx Gastrointestinal Bleed, Hx Hiatal Hernia, Hx Irritable Bowel, Hx Jaundice, Hx Obstructive Bowel, Hx Ileostomy, Hx Pyloric Stenosis, Hx Ulcer, Other GI Disorders History: Reports: Other Problems/Disorders - Urinary Retention Denies: Hx Acute Renal Failure, Hx Benign Prostatic Hyperplasia, Hx Chronic Renal Failure, Hx Dialysis, Hx Kidney Infection, Hx Kidney Stones, Hx Renal Disease Musculoskeletal History: Denies: Hx Rheumatoid Arthritis, Hx Back Problems, Hx Bursitis, Hx Fibromyalgia, Hx Gout, Hx Tendonitis, Other Musculoskeletal History Sensory History: Reports: Hx Contacts or Glasses - Has glasses with her, Hx Vision Problem Denies: Hx Cataracts, Hx Eye Injury, Hx Eye Prosthesis, Hx Glaucoma, Hx Legally Blind, Hx Macular Degeneration, Hx Deafness, Hx Hearing Aid, Other Sensory Impairments Opthamlomology History: Reports: Hx Contacts or Glasses - Has glasses with her, Hx Vision Problem Denies: Hx Cataracts, Hx Eye Injury, Hx Eye Prosthesis, Hx Glaucoma, Hx Legally Blind, Hx Macular Degeneration, Other Sensory Impairments Neurological History: Reports: Hx Developmental Delay, Hx Headaches, Hx Seizures Denies: Hx CVA, Hx Dementia, Hx Migraine, Hx Nerve Disease, Hx Peripheral Neuropathy, Hx Spinal Cord Injury, Hx Transient Ischemic Attacks (TIA), Other Neuro Impairments/Disorders Psychiatric History: Reports: Hx Anxiety, Hx Attention Deficit Hyperactivity Disorder, Hx Depression, Hx Panic Disorder, Hx Post Traumatic Stress Disorder, Hx Inpatient Treatment - multiple, Hx Community Mental Health Tx - [facility], Hx Bipolar Disorder, Hx Suicide Attempt - multiple, Hx of Violent Episodes Against Others, Hx Substance Abuse - OD on ativan, ambien, valium, Other Psychiatric Issues/Disorders - Mood Disorder, Borderline Denies: Hx Eating Disorder Comment Only: Hx Schizophrenia - Schizoaffective Disorder - Cancer History Hx Chemotherapy: No Hx Radiation Therapy: No Hx Palliative Cancer Treatment: No - Surgical History Surgery Procedure, Year, and Place: None - Immunization History Date of Tetanus Vaccine: UTD Date of Influenza Vaccine: Unk Infectious Disease History: No Infectious Disease History: Reports: Hx of Known/Suspected MRSA, 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 - Social History Alcohol Use: Occasionally Alcohol Amount: "drank beer awhile ago" Hx Substance Use: Yes Substance Use Type: Reports: None Substance Use Comment - Amount & Last Used: hx of such Hx Tobacco Use: Yes Smoking Status (MU): Heavy Every Day Tobacco Smoker Type: Cigarettes Amount Used/How Often: 1 pack per day Length of Time of Smoking/Using Tobacco: 3 years Have You Smoked in the Last Year: Yes - Patient has smoked within the last 30 days Review of Systems Negative: Fever Negative: Vomiting Skin: Other - Laceration All Other Systems Reviewed And Are Negative: Yes Physical Exam - Summary Physical Exam Summary: General: well-appearing, no pain distress Skin: warm, color reflects adequate perfusion, dry. 5cm subcutaneous laceration on the right neck. The subcutaneous tissue is seen with no active bleeding. Head: normal Eyes: EOMI, [place] ENT: normal Neck: supple, nontender Respiratory: CTA, breath sounds present Cardiovascular: RRR Abdomen: soft, nontender Bowel: present Musculoskeletal: normal, strength/ROM intact Neurological: normal, sensory/motor intact, A&O x3 Psychological: affect/mood appropriate Vital Signs On Initial Exam: Initial Vitals Temp Pulse Resp BP Pulse Ox 98.4 F 89 20 117/74 97 08/30/17 12:15 08/30/17 12:15 08/30/17 12:15 08/30/17 12:15 08/30/17 12:15 - Anant Coma Scale Coma Scale Total: 15 Diagnostics - Vital Signs Vital Signs Temp Pulse Resp BP Pulse Ox 08/30/17 13:08 20 08/30/17 12:15 98.4 F 89 20 117/74 97 - Laboratory Lab Results: Lab Results 08/30/17 08/30/17 Range/Units 16:50 16:50 WBC 12.3 H (3.5-10.8) 10^3/ul RBC 4.69 (4.0-5.4) 10^6/ul Hgb 13.6 (12.0-16.0) g/dl Hct 40 (35-47) % MCV 85 (80-97) fL MCH 29 (27-31) pg MCHC 34 (31-36) g/dl RDW 15 (10.5-15) % Plt Count 347 (150-450) 10^3/ul MPV 9 (7.4-10.4) um3 Neut % (Auto) 59.9 (38-83) % Lymph % (Auto) 31.9 (25-47) % [place] % (Auto) 6.1 (1-9) % Eos % (Auto) 1.5 (0-6) % Baso % (Auto) 0.6 (0-2) % Absolute Neuts (auto) 7.4 (1.5-7.7) 10^3/ul Absolute Lymphs (auto) 3.9 (1.0-4.8) 10^3/ul Absolute Monos (auto) 0.8 (0-0.8) 10^3/ul Absolute Eos (auto) 0.2 (0-0.6) 10^3/ul Absolute Basos (auto) 0.1 (0-0.2) 10^3/ul Absolute Nucleated RBC 0 10^3/ul Nucleated RBC % 0 Sodium 138 (133-145) mmol/L Potassium 3.5 (3.5-5.0) mmol/L Chloride 105 (101-111) mmol/L Carbon Dioxide 27 (22-32) mmol/L Anion Gap 6 (2-11) mmol/L BUN 10 (6-24) mg/dL Creatinine 1.00 H (0.51-0.95) mg/dL Est GFR ( Amer) 84.3 (>60) Est GFR (Non-Af Amer) 65.6 (>60) BUN/Creatinine Ratio 10.0 (8-20) Glucose 83 (70-100) mg/dL Calcium 9.6 (8.6-10.3) mg/dL Total Bilirubin 0.40 (0.2-1.0) mg/dL AST 16 (13-39) U/L ALT 21 (7-52) U/L Alkaline Phosphatase 75 (34-104) U/L Total Protein 8.0 (6.4-8.9) g/dL Albumin 4.5 (3.2-5.2) g/dL Globulin 3.5 (2-4) g/dL Albumin/Globulin Ratio 1.3 (1-3) TSH 1.38 (0.34-5.60) mcIU/mL Beta HCG, Quant < 0.60 mIU/mL Salicylates < 2.50 (<30) mg/dL Acetaminophen < 15 mcg/mL Serum Alcohol < 10 (<10) mg/dL Result Diagrams: 08/30/17 16:50 08/30/17 16:50 Lab Statement: Any lab studies that have been ordered have been reviewed, and results considered in the medical decision making process. Laceration Repair Course/Dx - Course Course Of Treatment: Medications reviewed. Allergies noted. LACERATION SUTURED BY PA. DISPOSITION PENDING AT SHIFT CHANGE. - Clinical Impression Provider Diagnoses: Mental health problem, Laceration of neck Discharge - Discharge Plan Condition: Stable Disposition: OTHER Discharge Disposition Comment: . Referrals: No Primary Care Phys,NOPCP [Primary Care Provider] - The documentation as recorded by the Stacey haskins Thomas accurately reflects the service I personally performed and the decisions made by me, Willam Lyn MD.
[2017-08-31] MEDS ORDERED: LORazepam TAB(*) 1 MG PO ONE (06:01)
[2017-08-31 08:08] LABS: Urine Appearance Cloudy; Urine Blood 2+ (Negative); Urine Color Yellow; Urine Ketones Negative (Negative); Urine Protein 1+(30 mg/dL) (Negative); Urine Specific Gravity 1.026 (1.010-1.030); Urine Urobilinogen Negative (Negative)
--- NOTE | 2017-08-31 09:45 | PN ---
ED Flex Patient Progress Note Date of Service: 08/30/17 Subjective: This is a 27 year-old F who is pending psychiatric consultation by Dr Harp to decide on patient's disposition. Pt offers no complaints at this time. Objective: Vitals: Most recent vital signs documented below. General NAD, Alert and oriented x3. Heart: rrr at 70bpm Lungs: CTA or with rales, rhonchi, wheezing Laboratory: Current laboratory results documented below. Assessment: pending psych consults and dispo suicidal ideation suicidal gesture Plan: Pending psychiatric medical consultation to determine disposition. will follow up daily. Vital Signs Temp Pulse Resp BP Pulse Ox 97.7 F 62 16 101/48 98 08/31/17 07:57 08/31/17 07:57 08/31/17 07:57 08/31/17 07:57 08/31/17 07:57 Lab Results - Entire Visit 08/31/17 08/30/17 08/30/17 07:42 16:50 16:50 WBC 12.3 H RBC 4.69 Hgb 13.6 Hct 40 MCV 85 MCH 29 MCHC 34 RDW 15 Plt Count 347 MPV 9 Neut % (Auto) 59.9 Lymph % (Auto) 31.9 [place] % (Auto) 6.1 Eos % (Auto) 1.5 Baso % (Auto) 0.6 Absolute Neuts (auto) 7.4 Absolute Lymphs (auto) 3.9 Absolute Monos (auto) 0.8 Absolute Eos (auto) 0.2 Absolute Basos (auto) 0.1 Absolute Nucleated RBC 0 Nucleated RBC % 0 Sodium 138 Potassium 3.5 Chloride 105 Carbon Dioxide 27 Anion Gap 6 BUN 10 Creatinine 1.00 H Est GFR ( Amer) 84.3 Est GFR (Non-Af Amer) 65.6 BUN/Creatinine Ratio 10.0 Glucose 83 Calcium 9.6 Total Bilirubin 0.40 AST 16 ALT 21 Alkaline Phosphatase 75 Total Protein 8.0 Albumin 4.5 Globulin 3.5 Albumin/Globulin Ratio 1.3 TSH 1.38 Beta HCG, Quant < 0.60 Urine Color Yellow Urine Appearance Cloudy Urine pH 6.0 Ur Specific [place] 1.026 Urine Protein 1+(30 mg/dl) H Urine Ketones Negative Urine Blood 2+ H Urine Nitrate Negative Urine Bilirubin Negative Urine Urobilinogen Negative Ur Leukocyte Esterase 2+ H Urine WBC (Auto) 3+(>20/hpf) H Urine RBC (Auto) 2+(6-10/hpf) H Ur Squamous Epith Cells Present H Urine Bacteria Absent Urine Glucose Negative Salicylates < 2.50 Urine Opiates Screen Acetaminophen < 15 Ur Barbiturates Screen Ur Phencyclidine Scrn Ur Amphetamines Screen U Benzodiazepines Scrn Urine Cocaine Screen U Cannabinoids Screen Serum Alcohol < 10 08/30/17 12:25 WBC RBC Hgb Hct MCV MCH MCHC RDW Plt Count MPV Neut % (Auto) Lymph % (Auto) [place] % (Auto) Eos % (Auto) Baso % (Auto) Absolute Neuts (auto) Absolute Lymphs (auto) Absolute Monos (auto) Absolute Eos (auto) Absolute Basos (auto) Absolute Nucleated RBC Nucleated RBC % Sodium Potassium Chloride Carbon Dioxide Anion Gap BUN Creatinine Est GFR ( Amer) Est GFR (Non-Af Amer) BUN/Creatinine Ratio Glucose Calcium Total Bilirubin AST ALT Alkaline Phosphatase Total Protein Albumin Globulin Albumin/Globulin Ratio TSH Beta HCG, Quant Urine Color Urine Appearance Urine pH Ur Specific [place] Urine Protein Urine Ketones Urine Blood Urine Nitrate Urine Bilirubin Urine Urobilinogen Ur Leukocyte Esterase Urine WBC (Auto) Urine RBC (Auto) Ur Squamous Epith Cells Urine Bacteria Urine Glucose Salicylates Urine Opiates Screen None detected Acetaminophen Ur Barbiturates Screen None detected Ur Phencyclidine Scrn None detected Ur Amphetamines Screen None detected U Benzodiazepines Scrn Presumptive positive H Urine Cocaine Screen Presumptive positive H U Cannabinoids Screen None detected Serum Alcohol
[2017-08-31] MEDS ORDERED: Cephalexin CAP* 500 MG PO ONE (11:27)
[2017-08-31] MEDS ORDERED: diPHENhydraMINE PO* 50 MG PO ONE (11:27)
[2017-08-31] MEDS: Nicotine GUM* 2 MG PO PRN ×2 (12:38→14:43)
--- NOTE | 2017-08-31 12:47 | PN ---
Progress Note - Progress Note Date of Service: 08/31/17 Note: S: Marly is seen in the ED with crisis trombone slide assembler Alek. The patient cut herself on the neck impulsively prior to coming to the hospital and is desperately seeking admission. Marly is well known to this clinician from multiple previous treatment experiences here. This presentation is typical for her. Currently she denies SI but states that she will cut herself or go to a different emergency department if discharged. "I need [facility] care." Marly is reminded that the [facility] system refuses to admit her into long term care administrator settings due to their perception that her primary pathology is characterological and behavioral in nature. I am made aware that Marly is due for her monthly injection of aripiprazole Maintana therapy. 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 Threatening to cut self; awake and alert A/P: Borderline PD: The patient has a well-documented history of doing poorly on the [facility] and getting worse when treated there, which is characteristic of her borderline personality pathology. I do not think further admission would benefit her but rather harm her, as it would reinforce further cuts to her neck when desirous of psychiatric admission in the future. My recommendation is to refer her back to [facility], where she is due for routine aripiprazole Maintana administration. 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
[2017-08-31 15:03] VITALS: BP 00/0
== END 2017-08-31 15:03 ==
LOC: ED 12:07
DX: S11.91XA Laceration without foreign body of unspecified part of neck, initial encounter (principal); Z00.8 Encounter for other general examination; Y33.XXXA Other specified events, undetermined intent, initial encounter; Y92.9 Unspecified place or not applicable
CPT/HCPCS: 36415; 80053; 80307; 80320; 80329; 81003; 81015; 84443; 84702; 85025; 87086; 99284; A9270-GY; G0480

== ENCOUNTER 2017-08-31 16:33 | Emergency (ER) | payer OTHER ==
[2017-08-31] MEDS ORDERED: Nicotine GUM* 2 MG PO PRN (18:07)
--- NOTE | 2017-08-31 18:46 | PN ---
Progress Note - Progress Note Date of Service: 08/31/17 Note: S: Marly is seen for the second time by this clinician today in the ED. She was discharged earlier today to the [facility], where she was due to receive her monthly aripiprazole injection. Please refer to the note from that encounter for further information. At any rate, she now claims that she "freaked out" at the clinic and was sent back here. She is attention-seeking and admits that she prefers [facility] to similar psychiatric units in the vicinity. "This place is great. It's like a 5-star hotel compared to other units." She admits that she overutilizes inpatient psychiatric settings "because people pay attention to me...I just can't handle it on the outside. Marly is reminded that she is now 27 years old and must come up with healthier ways to get her needs met. O: young, obese female with multiple scars to forearms from past SIB; cut to right neck that is sutured; impulsive; attention-seeking; denies SI or HI but endorses urge to cut; awake and alert A/P: Borderline PD: The patient has a well-documented history of doing poorly on the [facility] and getting worse when treated there, which is characteristic of BPD. I think that an admission would be harmful to her as it would reinforce her cutting behaviors. My recommendation remains that she should be discharged to definitive care in the community. Marly is at chronic long-term risk for self-harm due to primitive borderline personality organization and her care is best assumed in the outpatient setting.
--- NOTE | 2017-08-31 19:16 | ED ---
Stacey Lofton Thomas, scribed for Rodrigo Costa on 08/31/17 at 1722 . Psychiatric Complaint - HPI Summary HPI Summary: The patient is a 27 year old female who has borderline personality disorder and is suicidal. She was in the emergency department yesterday after cutting her own neck. She was discharged today at 15:00 but returned claiming she is still suicidal. She also has cuts on her right wrist that were self-inflicted on Sunday. The patient denies drug use, alcohol use, and smoking. - History Of Current Complaint Chief Complaint: EDMentalHealth Time Seen by Provider: 08/31/17 16:54 Hx Obtained From: Patient Hx Last Menstrual Period: IUD Onset/Duration: Still Present Timing: Constant Severity Initially: Moderate Severity Currently: Moderate Character: Depressed Aggravating Factor(s): Nothing Alleviating Factor(s): Nothing Has Suicidal: Reports: Thoughts - Allergies/Home Medications Allergies/Adverse Reactions: Allergies Allergy/AdvReac Type Severity Reaction Status Date / Time Penicillin V Allergy Severe Hives Verified 07/07/17 16:17 Latex Allergy Intermediate Rash Verified 07/07/17 16:17 Lactose Intolerance (GI) Allergy Diarrhea Verified 07/07/17 16:17 glue Allergy Rash Uncoded 07/07/17 16:17 steri strips Allergy Rash Uncoded 07/07/17 16:17 PMH/Surg Hx/FS Hx/Imm Hx Endocrine/Hematology History: Reports: Hx Unexplained Bleeding Denies: Hx Anticoagulant Therapy, Hx Blood Disorders, Hx Thyroid Disease, Hx Anemia, Other Endocrine/Hematological Disorders - borderline diabetic Comment Only: Hx Diabetes - Borderline Cardiovascular History: Denies: Hx Angioplasty, Hx Cardiac Arrest, Hx Cardiomegaly, Hx Congestive Heart Failure, Hx Coronary Artery Disease, Hx Deep Vein Thrombosis, Hx Embolism , Hx Hypercholesterolemia, Hx Hypertension, Hx Myocardial Infarction, Hx Pacemaker/ICD, Hx Peripheral Vascular Disease, Hx Rheumatic Fever, Hx Syncope, Hx Valvular Heart Disease, Other Cardiovascular Problems/Disorders Respiratory History: Denies: Hx Asthma - patient denied, Hx Chronic Bronchitis, Hx Chronic Obstructive Pulmonary Disease (COPD), Hx Cystic Fibrosis, Hx Lung Cancer, Hx Pleural Effusion, Hx Pneumonia, Hx Pulmonary Edema, Hx Pulmonary Embolism, Hx Seasonal Allergies, Hx Sleep Apnea, Other Respiratory Problems/Disorders GI History: Denies: Hx Cirrhosis, Hx Crohn's Disease, Hx Diverticulosis, Hx Gall Bladder Disease, Hx Gastroesophageal Reflux Disease, Hx Gastrointestinal Bleed, Hx Hiatal Hernia, Hx Irritable Bowel, Hx Jaundice, Hx Obstructive Bowel, Hx Ileostomy, Hx Pyloric Stenosis, Hx Ulcer, Other GI Disorders History: Reports: Other Problems/Disorders - Urinary Retention Denies: Hx Acute Renal Failure, Hx Benign Prostatic Hyperplasia, Hx Chronic Renal Failure, Hx Dialysis, Hx Kidney Infection, Hx Kidney Stones, Hx Renal Disease Musculoskeletal History: Denies: Hx Rheumatoid Arthritis, Hx Back Problems, Hx Bursitis, Hx Fibromyalgia, Hx Gout, Hx Tendonitis, Other Musculoskeletal History Sensory History: Reports: Hx Contacts or Glasses - Has glasses with her, Hx Vision Problem Denies: Hx Cataracts, Hx Eye Injury, Hx Eye Prosthesis, Hx Glaucoma, Hx Legally Blind, Hx Macular Degeneration, Hx Deafness, Hx Hearing Aid, Other Sensory Impairments Opthamlomology History: Reports: Hx Contacts or Glasses - Has glasses with her, Hx Vision Problem Denies: Hx Cataracts, Hx Eye Injury, Hx Eye Prosthesis, Hx Glaucoma, Hx Legally Blind, Hx Macular Degeneration, Other Sensory Impairments Neurological History: Reports: Hx Developmental Delay, Hx Headaches, Hx Seizures Denies: Hx CVA, Hx Dementia, Hx Migraine, Hx Nerve Disease, Hx Peripheral Neuropathy, Hx Spinal Cord Injury, Hx Transient Ischemic Attacks (TIA), Other Neuro Impairments/Disorders Psychiatric History: Reports: Hx Anxiety, Hx Attention Deficit Hyperactivity Disorder, Hx Depression, Hx Panic Disorder, Hx Post Traumatic Stress Disorder, Hx Inpatient Treatment - multiple, [facility], Hx Bipolar Disorder, Hx Suicide Attempt - multiple, Hx of Violent Episodes Against Others, Hx Substance Abuse - OD on ativan, ambien, valium, Other Psychiatric Issues/Disorders - Mood Disorder, Borderline Denies: Hx Eating Disorder Comment Only: Hx Schizophrenia - Schizoaffective Disorder - Cancer History Hx Chemotherapy: No Hx Radiation Therapy: No Hx Palliative Cancer Treatment: No - Surgical History Surgery Procedure, Year, and Place: None - Immunization History Date of Tetanus Vaccine: UTD Date of Influenza Vaccine: Unk Infectious Disease History: No Infectious Disease History: Reports: Hx of Known/Suspected MRSA, 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 - Social History Alcohol Use: Occasionally Alcohol Amount: "drank beer awhile ago" Hx Substance Use: Yes Substance Use Type: Reports: None Substance Use Comment - Amount & Last Used: hx of such Hx Tobacco Use: Yes Smoking Status (MU): Heavy Every Day Tobacco Smoker Type: Cigarettes Amount Used/How Often: 1 pack per day Length of Time of Smoking/Using Tobacco: 3 years Have You Smoked in the Last Year: Yes - Patient has smoked within the last 30 days Review of Systems Positive: Other - Lacerations Positive: Depressed All Other Systems Reviewed And Are Negative: Yes Physical Exam - Summary Physical Exam Summary: Appearance: Well appearing, no pain distress Skin: warm, dry, reflects adequate perfusion. Lacerations to her neck and bilateral arms that are superficial and healing. Head/face: normal Eyes: EOMI, [place] ENT: normal Neck: supple, non-tender Respiratory: CTA, breath sounds present Cardiovascular: RRR, pulses symmetrical Abdomen: non-tender, soft Bowel: present Musculoskeletal: normal, strength/ROM intact Neuro: normal, sensory motor intact, A&Ox3 Psych: Depressed. Triage Information Reviewed: Yes Vital Signs On Initial Exam: Initial Vitals Temp Pulse Resp BP Pulse Ox 98.2 F 114 18 00/00 97 08/31/17 16:56 08/31/17 16:56 08/31/17 16:56 08/31/17 16:56 08/31/17 16:56 Vital Signs Reviewed: Yes Diagnostics - Vital Signs Vital Signs Temp Pulse Resp BP Pulse Ox 08/31/17 16:56 98.2 F 114 18 00/00 97 - Laboratory Lab Statement: Any lab studies that have been ordered have been reviewed, and results considered in the medical decision making process. Course/Dx - Course Assessment/Plan: The patient has depression and suicidal ideation. The patient was medically cleared. Dr. Harp came down and saw the patient. He will discharge the patient. - Differential Dx/Clinical Impression Differential Diagnosis/HQI/PQRI: Positive: Depression, Suicide Attempt, Suicidal Ideation Provider Diagnosis: Suicidal ideation, Depression, Laceration - Physician Notifications Discussed Care Of Patient With: Wilton Harp Time Discussed With Above Provider: 18:38 Instructed by Provider To: Other - Dr. Harp, psychiatry, came to the evaluate the patient in the ED. He will discharge the patient. Discharge - Discharge Plan Condition: Stable Disposition: HOME Referrals: No Primary Care Phys,NOPCP [Primary Care Provider] - The documentation as recorded by the Stacey haskins Thomas accurately reflects the service I personally performed and the decisions made by Julissa [email or web address] Emmanuel.
[2017-08-31 20:28] VITALS: BP 111/82
== END 2017-08-31 20:54 | disposition home or self-care (01) ==
LOC: ED 16:33
DX: F32.9 Major depressive disorder, single episode, unspecified (principal); R45.851 Suicidal ideations; S11.91XD Laceration without foreign body of unspecified part of neck, subsequent encounter; X83.8XXD Intentional self-harm by other specified means, subsequent encounter; F17.210 Nicotine dependence, cigarettes, uncomplicated
CPT/HCPCS: 99285; A9270-GY